=== PATIENT | female | born 1980 | race Caucasian/White ===

== ENCOUNTER 2018-08-21 21:46 | Emergency (ER) | payer MEDICARE, OTHER ==
[~2018-08-21] VITALS: Ht 170.2 cm; Wt 70.3 kg
--- OUTSIDE RECORDS SUMMARY | 2018-08-21 21:54 | XMS REPORT | Continuity of Care Document ---
Author Author [facility] Organization [facility] Address [address] [place] [address] ;ext= Care Team Providers Care Software Release Manager Name Role Phone ELFEGO LLANESAngelito Zuniga Admphys MARIO ALBERTO [facility] Admission Diagnosis Code Admission Diagnosis Date [id number] Migraine Social History Element Description Code Description Smoking Status Code System Start Date End Date Smoking Status 5887781 Former smoker SNOMED-CT Problems * No data in the system Medications SNOMED CT Description 124149326 Drug Treatment Unknown Allergies * No Allergy Data in the System Results * No data in the system Vital Signs * No data in the system Plan of Care * No data in the system Procedures * No data in the system Encounters Date Code Diagnosis Status (ICD10) - O11210 MIGRAINE UNS NOT INTRACT W/O SM Active Immunizations * No data in the system Functional Status * No data in the system Hospital Discharge Instructions * No data in the system
--- OUTSIDE RECORDS SUMMARY | 2018-08-21 21:54 | XMS REPORT | Continuity of Care Document ---
Author Author [facility] Organization [facility] Address [address] [place] [address] ;ext= Care Team Providers Care Ict Business Development Manager Name Role Phone Alma Rosa ADEN A-ED Admphys Alma Rosa ADEN A-ED Attphys Hospital Admission Diagnosis Code Admission Diagnosis Date [id number] Migraine without aura, not refractory Social History Element Description Code Description Smoking Status Code System Start Date End Date Smoking Status [id number] Never smoker SNOMED-CT Problems Code Code System Problem Name Start Date End Date Status 85390014 SNOMED-CT Headache 01/09/2017 Active 96073345 SNOMED-CT Migraine 01/07/2017 Active 88894422 SNOMED-CT Migraine 06/24/2016 Active Medications RxNorm Medication Dose Route Instructions Indications Start Date End Date Status 314907 24 HR venlafaxine 75 MG Extended Release Oral Capsule 75 milligram Oral orally every day Active 7337354 5 ML Lidocaine Hydrochloride 40 MG/ML Injection 0.5 milliliter Intranasal into the nostril(s) once (administer into one nostril;) Active 930614 Levothyroxine Sodium 0.2 MG Oral Tablet 200 microgram Oral orally every day Active 632660 MAGNESIUM GLUCONATE 550 MG Oral Tablet 250 milligram Oral orally 2 times per day Active stadol 1 spray Intranasal into the nostril(s) 1 spray in a nostril no relief 45 min repeat in other nostril Active Allergies Code Code System Allergy Substance Type Reaction Severity Start Date End Date Status 77086 RXNorm Sulfa (Sulfonamides) Drug allergy Unknown 06/24/2016 Active Results * No data in the system Vital Signs Vitals Value Date Body Temperature 98 F 01/07/2017 Respiratory Rate 18 01/07/2017 O2% BldC Oximetry 99 01/07/2017 BP Systolic 126 mmHg 01/07/2017 BP Diastolic 59 mmHg 01/07/2017 Height 68 in 01/07/2017 Weight Measured 158.73 lbs 01/07/2017 BSA (Body Surface Area) 1.8527 01/07/2017 BMI (Body Mass Index) 24.3 01/07/2017 Plan of Care * No data in the system Procedures Code Code System Procedure Name Target Site Date of Procedure 710480060 SNOMED 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 Unknown 20798246 SNOMED Laparoscopy Unknown Encounters Date Code Diagnosis Status (ICD10) - I58349 MIGRAINE W/O AURA NOT INTRCT W/O SE Active Immunizations * No data in the system Functional Status * No data in the system Hospital Discharge Instructions * No data in the system
--- OUTSIDE RECORDS SUMMARY | 2018-08-21 21:54 | XMS REPORT | Continuity of Care Document ---
Author Author [facility] Organization [facility] Address [address] [place] [address] ;ext= Care Team Providers Care Meter Tester Primary Name Role Phone LEIDA AKHTAR Admphys Unavailable LEIDA AKHTAR Attdebra Unavailable Hospital Admission Diagnosis * No data in the System Social History Element Description Code Description Smoking Status Code System Start Date End Date Smoking Status 030782195 Never smoker SNOMED-CT Problems Code Code System Problem Name Start Date End Date Status 90897123 SNOMED-CT Migraine 06/24/2016 Active Medications RxNorm Medication Dose Route Instructions Indications Start Date End Date Status 9327917 5 ML Lidocaine Hydrochloride 40 MG/ML Injection 0.5 milliliter Intranasal into the nostril(s) once (administer into one nostril;) Active 374183 Levothyroxine Sodium 0.2 MG Oral Tablet 200 microgram Oral orally every day Active 649127 MAGNESIUM GLUCONATE 550 MG Oral Tablet 250 milligram Oral orally 2 times per day Active stadol 1 spray Intranasal into the nostril(s) 1 spray in a nostril no relief 45 min repeat in other nostril Active Allergies Code Code System Allergy Substance Type Reaction Severity Start Date End Date Status 85535 RXNorm Sulfa (Sulfonamides) Drug allergy Unknown 06/24/2016 Active Results * No data in the system Vital Signs Vitals Value Date Body Temperature 97.2 F 06/24/2016 Respiratory Rate 18 06/24/2016 O2% BldC Oximetry 99 06/24/2016 BP Systolic 122 mmHg 06/24/2016 BP Diastolic 72 mmHg 06/24/2016 Height 67 in 06/24/2016 Weight Measured 151.56 lbs 06/24/2016 BSA (Body Surface Area) 1.00034 06/24/2016 BMI (Body Mass Index) 23.7 06/24/2016 Plan of Care * No data in the system Procedures * No data in the system Encounters * No data in the system Immunizations * No data in the system Functional Status * No data in the system Hospital Discharge Instructions * No data in the system
--- OUTSIDE RECORDS SUMMARY | 2018-08-21 21:54 | XMS REPORT | Continuity of Care Document ---
Author Author [facility] Organization [facility] Address [address] [place] [address] ;ext= Care Team Providers Care French Weaver Name Role Phone REDD GASTELUM Admdebra Unavailable REDD GASTELUM Attdebra Unavailable Hospital Admission Diagnosis * No data in the System Social History Element Description Code Description Smoking Status Code System Start Date End Date Smoking Status 454295871 Unknown if ever smoked SNOMED-CT Problems Code Code System Problem Name Start Date End Date Status 88059485 SNOMED-CT Headache 01/09/2017 Active 97763855 SNOMED-CT Migraine 01/07/2017 Active 00763227 SNOMED-CT Migraine 06/24/2016 Active Medications RxNorm Medication Dose Route Instructions Indications Start Date End Date Status 500054 24 HR venlafaxine 75 MG Extended Release Oral Capsule 75 milligram Oral orally every day Active 5781794 5 ML Lidocaine Hydrochloride 40 MG/ML Injection 0.5 milliliter Intranasal into the nostril(s) once (administer into one nostril;) Active 786966 Levothyroxine Sodium 0.2 MG Oral Tablet 200 microgram Oral orally every day Active 882039 MAGNESIUM GLUCONATE 550 MG Oral Tablet 250 milligram Oral orally 2 times per day Active stadol 1 spray Intranasal into the nostril(s) 1 spray in a nostril no relief 45 min repeat in other nostril Active Allergies Code Code System Allergy Substance Type Reaction Severity Start Date End Date Status 09483 RXNorm Sulfa (Sulfonamides) Drug allergy Unknown 06/24/2016 Active Results * No data in the system Vital Signs Vitals Value Date Body Temperature 98.9 F 01/09/2017 Respiratory Rate 16 01/09/2017 O2% BldC Oximetry 97 01/09/2017 BP Systolic 115 mmHg 01/09/2017 BP Diastolic 69 mmHg 01/09/2017 Height 67 in 01/09/2017 Weight Measured 154.98 lbs 01/09/2017 BSA (Body Surface Area) 1.42954 01/09/2017 BMI (Body Mass Index) 24.3 01/09/2017 Plan of Care * No data in the system Procedures * No data in the system Encounters * No data in the system Immunizations * No data in the system Functional Status * No data in the system Hospital Discharge Instructions * No data in the system
--- OUTSIDE RECORDS SUMMARY | 2018-08-21 21:54 | XMS REPORT | Continuity of Care Document ---
Author Author [facility] Organization [facility] Address [address] [place] [address] ;ext= Care Team Providers Care Software Qa Manager Name Role Phone CHRISTIANLEAHJC Admphys MARIO ALBERTOJC Attphys Hospital Admission Diagnosis * No data in the System Social History Element Description Code Description Smoking Status Code System Start Date End Date Smoking Status 0265281 Former smoker SNOMED-CT Problems * No data in the system Medications SNOMED CT Description 656865901 Drug Treatment Unknown Allergies * No Allergy [...]
--- OUTSIDE RECORDS SUMMARY | 2018-08-21 21:54 | XMS REPORT | Continuity of Care Document ---
Author Author [facility] Organization [facility] Address [address] [place] [address] ;ext= Care Team Providers Care Net Lead Architect Name Role Phone LEIDA AKHTAR Admphys LEIDA AKHTAR Attphys Hospital Admission Diagnosis Code Admission Diagnosis Date [id number] Migraine without aura, not refractory Social History Element Description Code Description Smoking Status Code System Start Date End Date Smoking Status 081900318 Never smoker SNOMED-CT Problems Code Code System Problem Name Start Date End Date Status 41842084 SNOMED-CT Migraine 06/24/2016 Active Medications RxNorm Medication Dose Route Instructions Indications Start Date End Date Status 5875354 5 ML Lidocaine Hydrochloride 40 MG/ML Injection 0.5 milliliter Intranasal into the nostril(s) once (administer into one nostril;) Active 586755 Levothyroxine Sodium 0.2 MG Oral Tablet 200 microgram Oral orally every day Active 564782 MAGNESIUM GLUCONATE 550 MG Oral Tablet 250 milligram Oral orally 2 times per day Active stadol 1 spray Intranasal into the nostril(s) 1 spray in a nostril no relief 45 min repeat in other nostril Active Allergies Code Code System Allergy Substance Type Reaction Severity Start Date End Date Status 56938 RXNorm Sulfa (Sulfonamides) Drug allergy Unknown 06/24/2016 Active Results * No data in the system Vital Signs Vitals Value Date Body Temperature 97.2 F 06/24/2016 Respiratory Rate 18 06/24/2016 O2% BldC Oximetry 99 06/24/2016 BP Systolic 122 mmHg 06/24/2016 BP Diastolic 72 mmHg 06/24/2016 Height 67 in 06/24/2016 Weight Measured 151.56 lbs 06/24/2016 BSA (Body Surface Area) 1.76751 06/24/2016 BMI (Body Mass Index) 23.7 06/24/2016 Plan of Care * No data in the system Procedures * No data in the system Encounters Date Code Diagnosis Status (ICD10) - M34205 MIGRAINE W/O AURA NOT INTRCT W/O SE Active Immunizations * No data in the system Functional Status * No data in the system Hospital Discharge Instructions * No data in the system
--- OUTSIDE RECORDS SUMMARY | 2018-08-21 21:54 | XMS REPORT | Continuity of Care Document ---
Author Author [facility] Organization [facility] Address [address] [place] [address] ;ext= Care Team Providers Care Appliquer Name Role Phone Alma Rosa ADEN A-ED Admphys Alma Rosa ADEN A-ED Attphys Hospital Admission Diagnosis * No data in the System Social History Element Description Code Description Smoking Status Code System Start Date End Date Smoking Status 326672085 Never smoker SNOMED-CT Problems Code Code System Problem Name Start Date End Date Status 16476894 SNOMED-CT Migraine 01/07/2017 Active 74699157 SNOMED-CT Migraine 06/24/2016 Active Medications RxNorm Medication Dose Route Instructions Indications Start Date End Date Status 083568 24 HR venlafaxine 75 MG Extended Release Oral Capsule 75 milligram Oral orally every day Active 0624251 5 ML Lidocaine Hydrochloride 40 MG/ML Injection 0.5 milliliter Intranasal into the nostril(s) once (administer into one nostril;) Active 548039 Levothyroxine Sodium 0.2 MG Oral Tablet 200 microgram Oral orally every day Active 138191 MAGNESIUM GLUCONATE 550 MG Oral Tablet 250 milligram Oral orally 2 times per day Active stadol 1 spray Intranasal into the nostril(s) 1 spray in a nostril no relief 45 min repeat in other nostril Active Allergies Code Code System Allergy Substance Type Reaction Severity Start Date End Date Status 53326 RXNorm Sulfa (Sulfonamides) Drug allergy Unknown 06/24/2016 [...] Procedure Name Target Site Date of Procedure 818083712 SNOMED 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 Unknown 89452821 SNOMED Laparoscopy Unknown Encounters * No data in the system Immunizations * No data in the system Functional Status * No data in the system Hospital Discharge Instructions * No data in the system
--- OUTSIDE RECORDS SUMMARY | 2018-08-21 21:54 | XMS REPORT | Continuity of Care Document ---
Author Author [email or web address] Organization [employer] [facility] Address [address] [place] [address] ;ext= Care Team Providers Care Performance Architect Name Role Phone ENW LUBINDAVID HOLTON Admphys Unavailable ROYCE LUBIN HOLTON Attphys Unavailable Hospital Admission Diagnosis * No data in the System Social History Element Description Code Description Smoking Status Code System Start Date End Date Smoking Status 881074521 Never smoker SNOMED-CT Problems Code Code System Problem Name Start Date End Date Status 09552663 SNOMED-CT Migraine 03/24/2018 Active 68696705 SNOMED-CT Headache 01/09/2017 Active 74811344 SNOMED-CT Migraine 01/07/2017 Active 12359422 SNOMED-CT Migraine 06/24/2016 Active Medications RxNorm Medication Dose Route Instructions Indications Start Date End Date Status 645703 24 HR venlafaxine 75 MG Extended Release Oral Capsule 75 milligram oral orally every day Active 3770802 5 ML Lidocaine Hydrochloride 40 MG/ML Injection 0.5 milliliter Intranasal intranasally once (administer into one nostril;) Active 257375 Levothyroxine Sodium 0.2 MG Oral Tablet 200 microgram oral orally every day Active 903747 MAGNESIUM GLUCONATE 550 MG Oral Tablet 250 milligram oral orally 2 times per day Active stadol 1 spray Intranasal intranasally 1 spray in a nostril no relief 45 min repeat in other nostril Active Allergies Code Code System Allergy Substance Type Reaction Severity Start Date End Date Status 935260 RXNorm Ceftin Drug allergy Unknown 03/24/2018 Active 208787 RXNorm Compazine Drug allergy Unknown 03/24/2018 Active 6574 RXNorm Magnesium Drug allergy Unknown 03/24/2018 Active 80644 RXNorm Sulfa (Sulfonamides) Drug allergy Unknown 06/24/2016 Active 050949 RXNorm Topamax Drug allergy Unknown 03/24/2018 Active Results * No data in the system Vital Signs Vitals Value Date Body Temperature 96.9 F 03/24/2018 Respiratory Rate 15 03/24/2018 O2% BldC Oximetry 100 03/24/2018 BP Systolic 128 mmHg 03/24/2018 BP Diastolic 64 mmHg 03/24/2018 Weight Measured 155 lbs 03/24/2018 Plan of Care * No data in the system Procedures * No data in the system Encounters * No data in the system Immunizations * No data in the system Functional Status * No data in the system Hospital Discharge Instructions * No data in the system
--- OUTSIDE RECORDS SUMMARY | 2018-08-21 21:55 | XMS REPORT | Continuity of Care Document ---
Author Author [facility] Organization [facility] Address Unknown Phone Unavailable Allergies Active Description Code Type Severity Reaction Onset Reported/Identified Relationship to Patient Clinical Status Yes Sulfa (Sulfonamides) 491 Unknown N/A 06/24/2016 Yes Ceftin 3716 Unknown N/A 03/24/2018 Yes Compazine 3622 Unknown N/A 03/24/2018 Yes Magnesium 784 Unknown N/A 03/24/2018 Yes Topamax 85060 Unknown N/A 03/24/2018 Medications There is no data. Problems Date Dx Coded Attending Type Code Diagnosis Diagnosed By 07/30/2015 JC LLANES P 346.90 MIGRAINE, UNSPECIFIED, WITHOUT MENTION OF INTRACTABLE MIGRAINE WITHOUT MENTION O 07/30/2015 JC LLANES P G43.909 MIGRAINE, UNSPECIFIED, NOT INTRACTABLE, WITHOUT STATUS MIGRAINOSUS 07/13/2016 LEIDA AKHTAR S E03.9 HYPOTHYROIDISM, UNSPECIFIED 07/13/2016 LEIDA AKHTAR P G43.009 MIGRAINE WITHOUT AURA, NOT INTRACTABLE, WITHOUT STATUS MIGRAINOSUS 01/26/2017 REDD GASTELUM P G43.909 MIGRAINE, UNSPECIFIED, NOT INTRACTABLE, WITHOUT STATUS MIGRAINOSUS 01/26/2017 Alma Rosa ADEN P G43.009 MIGRAINE WITHOUT AURA, NOT INTRACTABLE, WITHOUT STATUS MIGRAINOSUS 07/18/2018 [facility] G[facility].809 OTHER MIGRAINE, NOT INTRACTABLE, WITHOUT STATUS MIGRAINOSUS 07/18/2018 [facility] Procedures There is no data. Results There is no data. Encounters ACCT No. Visit Date/Time Discharge Status Pt. Type Provider Facility Loc./Unit Complaint [id number] 06/23/2018 04:07:00 ACT Unknown [facility] NSER HEADACHE [id number] 06/22/2018 22:07:00 ACT Unknown [facility] HEADACHE [id number] 03/24/2018 19:16:00 [facility] [id number] 01/09/2017 18:47:00 ACT Unknown REDD GASTELUM [facility] NSER HEADACHE [id number] 01/07/2017 21:26:00 ACT Unknown Alma Rosa ADEN [facility] NSER HEADACHE [id number] 06/24/2016 20:12:00 ACT Unknown LEIDA AKHTAR [facility] NSER HEADACHE [id number] 06/26/2015 20:27:00 ACT Unknown JC LLANES [id number] 08/17/2018 18:10:00 08/17/2018 23:59:59 [facility] Outpatient WENCESLAO PARIS [facility] [id number] 07/01/2016 14:22:44 ACT Document Registration
--- OUTSIDE RECORDS SUMMARY | 2018-08-21 21:55 | XMS REPORT | Continuity of Care Document ---
Author Author [facility] Organization [facility] Address [address] [place] [address] ;ext= Care Team Providers Care Supervisor Paper Testing Name Role Phone REDD GASTELUM Admdebra Unavailable REDD GASTELUM Attdebra Unavailable Hospital Admission Diagnosis Code Admission Diagnosis Date 03636857 Migraine Social History Element Description Code Description Smoking Status Code System Start Date End Date Smoking Status 610041594 Unknown if ever smoked SNOMED-CT Problems Code Code System Problem Name Start Date End Date Status 67350327 SNOMED-CT Headache 01/09/2017 Active 43860906 SNOMED-CT Migraine 01/07/2017 Active 87843495 SNOMED-CT Migraine 06/24/2016 Active Medications RxNorm Medication Dose Route Instructions Indications Start Date End Date Status 967030 24 HR venlafaxine 75 MG Extended Release Oral Capsule 75 milligram Oral orally every day Active 1993381 5 ML Lidocaine Hydrochloride 40 MG/ML Injection 0.5 milliliter Intranasal into the nostril(s) once (administer into one nostril;) Active 375118 Levothyroxine Sodium 0.2 MG Oral Tablet 200 microgram Oral orally every day Active 379643 MAGNESIUM GLUCONATE 550 MG Oral Tablet 250 milligram Oral orally 2 times per day Active stadol 1 spray Intranasal into the nostril(s) 1 spray in a nostril no relief 45 min repeat in other nostril Active Allergies Code Code System Allergy Substance Type Reaction Severity Start Date End Date Status 36247 RXNorm Sulfa (Sulfonamides) Drug allergy Unknown 06/24/2016 Active Results * No data in the system Vital Signs Vitals Value Date Body Temperature 98.9 F 01/09/2017 Respiratory Rate 16 01/09/2017 O2% BldC Oximetry 97 01/09/2017 BP Systolic 115 mmHg 01/09/2017 BP Diastolic 69 mmHg 01/09/2017 Height 67 in 01/09/2017 Weight Measured 154.98 lbs 01/09/2017 BSA (Body Surface Area) 1.91373 01/09/2017 BMI (Body Mass Index) 24.3 01/09/2017 Plan of Care * No data in the system Procedures * No data in the system Encounters Date Code Diagnosis Status (ICD10) - O77108 MIGRAINE UNS NOT INTRACT W/O SM Active Immunizations * No data in the system Functional Status * No data in the system Hospital Discharge Instructions * No data in the system
--- NOTE | 2018-08-21 21:56 | ED Headache ---
General Stated Complaint: MIGRAINE, NAUSEA, SENSITIVE TO LIGHT AND SMELLS History of Present Illness Date Seen by Provider: Aug 21, 2018 Time Seen by Provider: 21:54 Timing/Duration: episodic Severity/Quality: moderate, throbbing Location: frontal Prior Headaches/Recent Trauma: frequent headaches Modifying Factors: improves with exposure to light Associated Symptoms: No fever/chills; nausea/vomiting; No numbness in legs/feet , No stiff neck, No vision changes, No weakness 37-year-old female with a history of migraine headaches is here for her typical migraine symptoms. She just was getting a massage but this did not help her. She started to have nausea and vomiting which is not new for her but she decided she should come to the emergency department for treatment. She usually gets a combination of IV medications which she states include Toradol, Phenergan , and sometimes a steroid. No visual or neurologic changes. No fever or neck symptoms. Allergies and Home Medications Allergies Coded Allergies: cefuroxime (Verified Allergy, Unknown, 08/21/18) magnesium (Verified Allergy, Unknown, 08/21/18) prochlorperazine (Verified Allergy, Unknown, rash, 08/21/18) topiramate (Verified Allergy, Unknown, 08/21/18) Uncoded Allergies: SULFA (Allergy, Mild, itchy, 08/21/18) Patient Home Medication List Home Medication List Reviewed: Yes Review of Systems Review of Systems Constitutional: no symptoms reported Eyes: No Symptoms Reported Ears, Nose, Mouth, Throat: no symptoms reported Respiratory: no symptoms reported Cardiovascular: no symptoms reported Gastrointestinal: no symptoms reported Genitourinary: no symptoms reported Musculoskeletal: no symptoms reported Skin: no symptoms reported Psychiatric/Neurological: Headache Past Cvzabhf-Takgnq-Hmdsxo Hx Patient Social History Recent Foreign Travel: No Contact w/Someone Who Travel: No Physical Exam Vital Signs Vital Signs - First Documented 08/21/18 22:52 Temp 100.1 Pulse 95 Resp 18 B/P (MAP) 113/60 (77) Pulse Ox 100 O2 Delivery Room Air Capillary Refill : Height, Weight, BMI Height: '" Weight: lbs. oz. kg; BMI Method: General Appearance: no apparent distress HEENT: normal ENT inspection Neck: full range of motion, supple Cardiovascular: normal peripheral pulses, regular rate, rhythm Respiratory: lungs clear Gastrointestinal: non tender, soft Psychiatric: alert, oriented x 3 Crainal Nerves: normal hearing, normal speech, PERRL; No abnormal speech, No facial asymmetry, No tongue deviation to R, No tongue deviation to L Coordination/Gait: normal finger to nose, normal gait Motor/Sensory: no motor deficit, no sensory deficit Skin: warm/dry Progress/Results/Core Measures Results/Orders My Orders Orders - JOEL ELLIOTT DO Metoclopramide Injection (Reglan Injecti (08/21/18 22:09) Ns Iv 1000 Ml (Sodium Chloride 0.9%) (08/21/18 22:09) Diphenhydramine Injection (Benadryl Inje (08/21/18 22:09) Diphenhydramine Injection (Benadryl Inje (08/21/18 22:09) Hcg,Qualitative Urine (08/21/18 22:09) Promethazine Injection (Phenergan Injec (08/21/18 23:09) Morphine Injection (Morphine Injection (08/22/18 00:21) Morphine Injection (Morphine Injection (08/22/18 00:28) Vital Signs/I&O 08/21/18 22:52 Temp 100.1 Pulse 95 Resp 18 B/P (MAP) 113/60 (77) Pulse Ox 100 O2 Delivery Room Air Progress Progress Note : Progress Note This is a 37-year-old female with a history of migraines who complains of her typical migraine symptoms. She has no systemic symptoms other than vomiting which is not new for her. She is neurologically intact. We will treat with a migraine cocktail and will continue to monitor. Departure Impression Primary Impression: Headache Disposition: 01 HOME, SELF-CARE Condition: Stable Departure-Patient Inst. Referrals: WENCESLAO PARIS MD (PCP) Primary Care Physician Patient Instructions: Headache, Adult (DC) JOEL ELLIOTT DO Aug 21, 2018 21:56
[2018-08-21] MEDS ORDERED: diphenhydrAMINE 50 MG/ML INJ (BENADRYL) IVP STA (22:09)
[2018-08-21] MEDS ORDERED: diphenhydrAMINE 50 MG/ML INJ (BENADRYL) IV STA (22:09)
[2018-08-21] MEDS ORDERED: METOCLOPRAMIDE INJ 10 MG/2 ML (REGLAN) IVP STA (22:09)
[2018-08-21] MEDS ORDERED: NS IV 1000 ML 1,000 ML IV STA (22:09)
[2018-08-21] MEDS ORDERED: PROMETHAZINE INJ 25 MG/ML (PHENERGAN) AMP IM STA (23:09)
[2018-08-22] MEDS ORDERED: morphine INJ 10 MG/ML 1ML (SYR OR VIAL) IVP STA (00:21)
[2018-08-22] MEDS ORDERED: morphine INJ 10 MG/ML 1ML (SYR OR VIAL) IM STA (00:28)
[2018-08-22 00:38] VITALS: BP 112/73
[2018-08-22 00:46] VITALS: BP 113/60
[2018-08-22] MEDS ORDERED: LORA1TAB (10:24)
[2018-08-22] MEDS ORDERED: BUPR150T14 (10:24)
[2018-08-22] MEDS ORDERED: ZOLP5TAB7 (10:24)
[2018-08-22] MEDS ORDERED: PROP20TA5 (10:24)
[2018-08-22] MEDS ORDERED: VENL150C98 (10:24)
[2018-08-22] MEDS ORDERED: LEVO200T (10:24)
[2018-08-22] MEDS ORDERED: BTR10SP2 (10:24)
[2018-08-22] MEDS ORDERED: LEVO50TA (10:24)
== END 2018-08-22 00:46 | disposition home or self-care (01) ==
LOC: ER FS 21:49
DX: R51 Headache (principal); Z88.8 Allergy status to other drugs, medicaments and biological substances; Z88.2 Allergy status to sulfonamides
CPT/HCPCS: 99284

== ENCOUNTER 2018-08-22 09:52 | Emergency (ER) | payer MEDICARE, OTHER ==
[~2018-08-22] VITALS: Ht 170.2 cm; Wt 70.3 kg
[2018-08-22] MEDS ORDERED: KETOROLAC 30 MG/ML VIAL IVP STA (10:20)
[2018-08-22] MEDS ORDERED: NS IV 1000 ML 1,000 ML IV SCH (10:20)
[2018-08-22] MEDS ORDERED: LEVO50TA (10:24)
[2018-08-22] MEDS ORDERED: LORA1TAB (10:24)
[2018-08-22] MEDS ORDERED: VENL150C98 (10:24)
[2018-08-22] MEDS ORDERED: BTR10SP2 (10:24)
[2018-08-22] MEDS ORDERED: PROP20TA5 (10:24)
[2018-08-22] MEDS ORDERED: LEVO200T (10:24)
[2018-08-22] MEDS ORDERED: BUPR150T14 (10:24)
[2018-08-22] MEDS ORDERED: ZOLP5TAB7 (10:24)
--- NOTE | 2018-08-22 10:28 | ED Headache ---
General Chief Complaint: Head/Cervical Problems Stated Complaint: HEADACHE Nursing Triage Note: PT LAYING ON OWN BLANKET IN WAITING ROOM. STATE SHE WAS SEEN LAST NIGHT HERE FOR HER MIGRAINE AND DID NOT REALLY GO AWAY. Nursing Sepsis Screen: No Definite Risk History of Present Illness Date Seen by Provider: Aug 22, 2018 Time Seen by Provider: 10:18 Initial Comments 37-year-old female with long history of migraine headaches presents with continuation of headache that she was seen last night here. They were unable to establish an IV and medications given to her was limited. She continues to have photophobia and generalized headache, worse on the left. She states this is typical for her migraine headaches and is not different from what she would expect. No known precipitating event. Sees neurology. She states that Norflex has helped her substantially in the past and requested it today if possible. She has not had a good by mouth fluid intake. She reports associated nausea. No recent head injury or other associated factors. Allergies and Home Medications Allergies Coded Allergies: cefuroxime (Verified Allergy, Unknown, 08/21/18) magnesium (Verified Allergy, Unknown, 08/21/18) prochlorperazine (Verified Allergy, Unknown, rash, 08/21/18) topiramate (Verified Allergy, Unknown, 08/21/18) Uncoded Allergies: SULFA (Allergy, Mild, itchy, 08/21/18) Patient Home Medication List Home Medication List Reviewed: Yes Review of Systems Review of Systems Constitutional: see HPI, weakness Eyes: See HPI, Photophobia Ears, Nose, Mouth, Throat: no symptoms reported Respiratory: no symptoms reported Cardiovascular: no symptoms reported Gastrointestinal: see HPI, nausea Genitourinary: no symptoms reported : No Musculoskeletal: no symptoms reported Skin: no symptoms reported Psychiatric/Neurological: Anxiety, Other (ADD, OCD) Past Tqqgdko-Cgrwpn-Hgyjpt Hx Past Med/Social Hx: Reviewed Nursing Past Med/Soc Hx Patient Social History Alcohol Use: Denies Use Recreational Drug Use: No Smoking Status: Former Smoker 2nd Hand Smoke Exposure: No Recent Foreign Travel: No Contact w/Someone Who Travel: No Recent Infectious Disease Expo: No Recent Hopitalizations: No Past Medical History Respiratory: No Cardiac: No Neurological: Yes 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 oz. 70.905579ez; BMI Method:Stated General Appearance: WD/WN, mild distress HEENT: PERRL/EOMI, normal ENT inspection, TMs normal, pharynx normal; No scleral icterus (R) Neck: non-tender, full range of motion, supple, normal inspection Cardiovascular: normal peripheral pulses, regular rate, rhythm, no edema, no gallop, no JVD, no murmur Respiratory: chest non-tender, lungs clear, normal breath sounds, no respiratory distress, no accessory muscle use Gastrointestinal: normal bowel sounds, non tender, soft, no organomegaly, no pulsatile mass Back: normal inspection, no CVA tenderness, no vertebral tenderness Extremities: normal range of motion, non-tender, normal inspection, no pedal edema, no calf tenderness, normal capillary refill, pelvis stable Psychiatric: alert, oriented x 3 Crainal Nerves: normal hearing, normal speech, PERRL; No facial asymmetry, No facial droop Coordination/Gait: normal finger to nose, normal gait Motor/Sensory: no motor deficit, no sensory deficit, no pronator drift Reflexes: 1+ Bicep (R), 1+ Bicep (L) Skin: normal color, warm/dry Lymphatic: no adenopathy Progress/Results/Core Measures Results/Orders My Orders Orders - SABINA DOUGHERTY MD Ketorolac Injection (Toradol Injection) (08/22/18 10:20) Saline Lock/Iv-Start (08/22/18 10:20) Ns Iv 1000 Ml (Sodium Chloride 0.9%) (08/22/18 10:20) Dexamethasone Injection (Decadron Inject (08/22/18 10:30) Lorazepam Injection (Ativan Injection) (08/22/18 11:00) Medications Given in ED Current Medications Medications Dose Ordered Sig/Shell Route Start Time Stop Time Status Last Admin Dose Admin Dexamethasone Sodium Phosphate 4 mg ONCE ONCE IV 08/22/18 10:30 08/22/18 10:31 DC 08/22/18 10:36 4 MG Lorazepam 1 mg ONCE ONCE IVP 08/22/18 11:00 08/22/18 11:01 DC 08/22/18 10:53 1 MG Vital Signs/I&O 08/22/18 09:55 Temp 100.4 Pulse 79 Resp 16 B/P (MAP) 144/79 (100) Pulse Ox 100 O2 Delivery Room Air Blood Pressure Mean: 100 Progress Progress Note : Time: 10:28 Progress Note We'll attempt IV fluids and medication. Due to recent evaluations and no change in course, will not perform diagnostic testing. Discussed treatment plan with patient and mother understand and agree with plan. 1034 Norflex is not available due to the stone [employer]ney m[employer]'s backorder. Patient and mother both state that she can take Phenergan but prefers not to have it today. We will give Ativan instead of Norflex. Continue with plan for Toradol, IV fluids and Decadron. 1142 Feeling better. IVF continue to infuse. She feels like she will be able to go home soon. Departure Impression Primary Impression: Migraine Qualified Codes: G43.119 - Migraine with aura, intractable, without status migrainosus Additional Impression: Dehydration Disposition: 01 HOME, SELF-CARE Condition: Improved Departure-Patient Inst. Referrals: WENCESLAO PARIS MD (PCP/Family) Primary Care Physician SABINA DOUGHERTY MD Aug 22, 2018 10:28
[2018-08-22] MEDS ORDERED: DEXAMETHASONE 4 MG/ML SDV (DECADRON) IV ONE (10:30)
[2018-08-22] MEDS ORDERED: ORPHENADRINE 60 MG/2 ML (NORFLEX) AMP IV ONE (10:30)
--- NOTE | 2018-08-22 10:35 | NUR ---
PT CRYING ET STATES THEY HAVE TROUBLE GETTING HER IV STARTED. AFTER IV STARTED PT CRYING THAT SHE WILL FEEL ALL THE MEDS THAT ARE GIVEN IV. PT REQUEST ATIVAN. NOTIFIED.
[2018-08-22] MEDS ORDERED: PROMETHAZINE INJ 25 MG/ML (PHENERGAN) AMP IVP ONE (10:45)
--- NOTE | 2018-08-22 10:45 | NUR ---
DR REPORTS PT REFUSES PHENERGAN IV DUE TO SHE WILL FEEL IT. ATIVAN TO BE ORDERED FOR PT.
[2018-08-22] MEDS ORDERED: LORazepam INJ 2 MG/ML (ATIVAN) VIAL IVP ONE (11:00)
--- NOTE | 2018-08-22 11:19 | NUR ---
MOM LEAVING BEDSIDE. CALL LIGHT GIVEN. ANXIETY HAS DECREASED BUT NOT COMPLETELY GONE. A/O X3 AT THIS TIME.
--- NOTE | 2018-08-22 11:40 | NUR ---
RESTING IN BED. STATES HER IS ON HIS WAY AND WOULD NEED TO LEAVE WHEN HE ARRIVES. DR ARTHUR.
--- NOTE | 2018-08-22 11:57 | NUR ---
PT UP TO BATHROOM AT THIS TIME.
[2018-08-22 12:18] VITALS: BP 121/71
== END 2018-08-22 12:18 | disposition home or self-care (01) ==
LOC: EDUNIT# 09:52 → ER FS 09:55
DX: G43.909 Migraine, unspecified, not intractable, without status migrainosus (principal); F41.9 Anxiety disorder, unspecified; E86.0 Dehydration; Z88.2 Allergy status to sulfonamides; Z88.8 Allergy status to other drugs, medicaments and biological substances; Z87.891 Personal history of nicotine dependence; Z90.710 Acquired absence of both cervix and uterus

== ENCOUNTER → 2018-10-24 | Outpatient (CLI) | payer MEDICARE, OTHER ==
[~2018-10-24] MED LIST: BTR10SP2; BUPR150T14; LEVO200T; LEVO50TA; LORA1TAB; PROP20TA5; VENL150C98; ZOLP5TAB7
--- NOTE | 2018-10-24 15:55 | Diagnostic Imaging Report ---
INDICATION: Acute back pain. COMPARISON: None FINDINGS: Frontal and lateral views of the lumbar spine were obtained. Alignment and vertebral heights are maintained. There is no fracture or destructive process. Limited views of the abdomen demonstrate nonobstructive bowel gas pattern. IMPRESSION: 1. No acute fracture or dislocation of the lumbar spine. Dictated by: Dictated on workstation # [id number]
== END ==
LOC: RAD FS 15:25
PROVIDERS: ATTEND Family Medicine
DX: M54.41 Lumbago with sciatica, right side (principal)
CPT/HCPCS: 72100

== ENCOUNTER 2018-10-31 16:56 | Emergency (ER) | payer MEDICARE, OTHER ==
[~2018-10-31] VITALS: Ht 170.2 cm; Wt 70.3 kg
--- OUTSIDE RECORDS SUMMARY | 2018-10-31 17:01 | XMS REPORT | Continuity of Care Document ---
Author Organization Unknown Address Unknown Allergies Active Description Code Type Severity Reaction Onset Reported/Identified Relationship to Patient Clinical Status Yes Sulfa (Sulfonamides) 491 Unknown N/A 06/24/2016 Yes Ceftin 3716 Unknown N/A 03/24/2018 Yes Compazine 3622 Unknown N/A 03/24/2018 Yes Magnesium 784 Unknown N/A 03/24/2018 Yes Topamax 02119 Unknown N/A 03/24/2018 Medications There is no [...] NOT INTRACTABLE, WITHOUT STATUS [facility]RAIN[facility] G[facility].809 OTHER MIGRAINE, NOT INTRACTABLE, WITHOUT STATUS MIGRAINOSUS 07/18/2018 [facility] R51 HEADACHE 09/09/2018 TRUNG WIGGINS P G43.909 MIGRAINE, UNSPECIFIED, NOT INTRACTABLE, WITHOUT STATUS MIGRAINOSUS 09/09/2018 TRUNG WIGGINS P G43.909 MIGRAINE, UNSPECIFIED, NOT INTRACTABLE, WITHOUT STATUS MIGRAINOSUS 09/09/2018 TRUNG WIGGINS S R11.2 NAUSEA WITH VOMITING, UNSPECIFIED Procedures There is no data. Results Test Result Range CULTURE, THROAT - 10/12/18 16:56 CULTURE, THROAT SEE NOTE NRG Encounters ACCT No. Visit Date/Time Discharge Status Pt. Type Provider Facility Loc./Unit Complaint [id number] 10/17/2018 18:00:00 10/17/2018 23:59:59 CLS Outpatient WENCESLAO PARIS [facility] [id number] 10/12/2018 16:20:00 Document Registration [id number] 06/23/2018 04:07:00 ACT Unknown [facility] NSER HEADACHE [id number] 06/22/2018 22:07:00 ACT Unknown [facility] NSER HEADACHE [id number] 03/24/2018 19:16:00 [facility] [id number] 01/09/2017 18:47:00 ACT Unknown REDD GASTELUM [facility] NSER HEADACHE [id number] 01/07/2017 21:26:00 ACT Unknown Alma Rosa ADEN [facility] NSER HEADACHE [id number] 06/24/2016 20:12:00 ACT Unknown LEIDA AKHTAR [facility] NSER HEADACHE [id number] 06/26/2015 20:27:00 ACT Unknown JC LLANES
[2018-10-31] MEDS ORDERED: CLIN300C11 (17:16)
[2018-10-31] MEDS ORDERED: CYCLOBENZAPRINE 10 MG (FLEXERIL) TAB PO STA (17:40)
[2018-10-31] MEDS ORDERED: PROMETHAZINE INJ 25 MG/ML (PHENERGAN) AMP IM ONE (17:45)
[2018-10-31] MEDS ORDERED: KETOROLAC 60 MG/2 ML VIAL IM ONE (17:45)
[2018-10-31] MEDS ORDERED: ACETAMINOPHEN 500 MG TAB (TYLENOL) PO ONE (17:45)
[2018-10-31] MEDS ORDERED: diphenhydrAMINE 50 MG/ML INJ (BENADRYL) IM ONE (17:45)
[2018-10-31] MEDS ORDERED: methylPREDNISolone 40 MG/ML (DEPO MEDROL) VIAL IM ONE (17:45)
--- NOTE | 2018-10-31 17:48 | ED Headache ---
General Chief Complaint: Head/Cervical Problems Stated Complaint: HEADACHE Nursing Triage Note: migraine started on sunday and was seen at urgent care but has not helped with the pain. Nursing Sepsis Screen: No Definite Risk Source: patient, spouse Exam Limitations: no limitations History of Present Illness Date Seen by Provider: October 31, 2018 Time Seen by Provider: 17:33 Initial Comments Patient presents to ER by private conveyance with headache, chronic migraine. This has been going on for several days. 2 weeks ago she was treated was antibiotics and steroids for sinus infection and has gotten over that. She's having no fevers chills cough dysuria. She does have some nausea with dry heaving. She uses Zofran at home. She has Phenergan at home as well. 2 days ago she had a shot of Toradol and some Phenergan and Tylenol at urgent care but no steroids. She has chronic migraines usually gets Botox shots but she's fallen off that track and so her migraines of gotten worse in the last couple months. She's having an aura yesterday when the migraine symptoms began. She does not use Compazine because she made her itch out of her skin. She has significant anxiety for which she uses Ativan as necessary. Allergies and Home Medications Allergies Coded Allergies: cefuroxime (Verified Allergy, Unknown, 08/21/18) haloperidol (Verified Allergy, Unknown, 10/31/18) magnesium (Verified Allergy, Unknown, 08/21/18) prochlorperazine (Verified Allergy, Unknown, rash, 08/21/18) topiramate (Verified Allergy, Unknown, 08/21/18) tramadol (Verified Allergy, Unknown, 10/31/18) Uncoded Allergies: SULFA (Allergy, Mild, itchy, 08/21/18) DHE (Allergy, Unknown, 10/31/18) Patient Home Medication List Home Medication List Reviewed: Yes Review of Systems Review of Systems Constitutional: No chills, No diaphoresis Eyes: Denies Blindness, Denies Blurred Vision Ears, Nose, Mouth, Throat: denies ear pain, denies ear discharge Respiratory: No cough, No short of breath Cardiovascular: No chest pain, No edema Gastrointestinal: nausea, vomiting Past Tpsgyhl-Qcfgdl-Uxmigo Hx Patient Social History Alcohol Use: Denies Use Recreational Drug Use: No Smoking Status: Never a Smoker 2nd Hand Smoke Exposure: No Recent Foreign Travel: No Contact w/Someone Who Travel: No Recent Infectious Disease Expo: No Recent Hopitalizations: No Physical Abuse: No Sexual Abuse: No Mistreated: No Fear: No Past Medical History Respiratory: No Cardiac: No 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 oz. 70.871544ui; BMI Method:Stated General Appearance: WD/WN, mild distress, other (anxious) HEENT: PERRL/EOMI, normal ENT inspection, TMs normal, pharynx normal Neck: non-tender, full range of motion, supple, normal inspection Cardiovascular: normal peripheral pulses, regular rate, rhythm, no edema Respiratory: lungs clear, normal breath sounds, no respiratory distress, no accessory muscle use Extremities: non-tender, normal inspection, normal capillary refill Psychiatric: alert, oriented x 3 Crainal Nerves: normal hearing, normal speech, PERRL Coordination/Gait: normal gait Motor/Sensory: no motor deficit, no sensory deficit Skin: normal color, warm/dry Progress/Results/Core Measures Results/Orders My Orders Orders - JAXSON ANDERSON Diphenhydramine Injection (Benadryl Inje (10/31/18 17:45) Acetaminophen Tablet (Tylenol Tablet) (10/31/18 17:45) Ketorolac Injection (Toradol Injection) (10/31/18 17:45) Promethazine Injection (Phenergan Injec (10/31/18 17:45) Methylprednisolone Acetate Inj (Depo-Med (10/31/18 17:45) Cyclobenzaprine Tablet (Flexeril Tablet) (10/31/18 17:40) Medications Given in ED Current Medications Medications Dose Ordered Sig/Shell Route Start Time Stop Time Status Last Admin Dose Admin Acetaminophen 1,000 mg ONCE ONCE PO 10/31/18 17:45 10/31/18 17:46 DC 10/31/18 17:56 1,000 MG Diphenhydramine HCl 25 mg ONCE ONCE IM 10/31/18 17:45 10/31/18 17:46 DC 10/31/18 17:57 25 MG Ketorolac Tromethamine 60 mg ONCE ONCE IM 10/31/18 17:45 10/31/18 17:46 DC 10/31/18 17:59 60 MG Methylprednisolone Acetate 40 mg ONCE ONCE IM 10/31/18 17:45 10/31/18 17:46 DC 10/31/18 17:58 40 MG Promethazine HCl 25 mg ONCE ONCE IM 10/31/18 17:45 10/31/18 17:46 DC 10/31/18 17:58 25 MG Vital Signs/I&O 10/31/18 17:16 Temp 99.0 Pulse 94 Resp 18 B/P (MAP) 137/67 (90) Pulse Ox 100 Blood Pressure Mean: 90 Progress Progress Note : Time: 18:08 Progress Note Per patient's request we'll give IM Toradol, Depo-Medrol, Benadryl, and Phenergan. She is declining Zofran at this time. We'll give her some Tylenol by mouth. We have discussed using Reglan but she has quite a bit of anxiety about this because of her side effects to Compazine so we will hold off doing that for now. We'll give her a prescription for some cyclobenzaprine. Departure Impression Primary Impression: Migraine Qualified Codes: G43.119 - Migraine with aura, intractable, without status migrainosus Disposition: 01 HOME, SELF-CARE Condition: Stable Departure-Patient Inst. Decision time for Depature: 18:09 Referrals: WENCESLAO PARIS MD (PCP/Family) Primary Care Physician Patient Instructions: Migraine Headache (DC) Add. Discharge Instructions: Use the cyclobenzaprine 1 tablet every 8 hours as necessary for spasms in the muscles of your neck back or shoulders. Continue to use Tylenol 1000 mg and ibuprofen 800 mg every 8 hours. Please weight 8 hours after the Toradol shot before using anymore ibuprofen or Naprosyn or Aleve. Follow-up with your headache specialist to discuss prevention strategies. Get some sleep and drink plenty of fluids. All discharge instructions reviewed with patient and/or family. Voiced understanding. Scripts Cyclobenzaprine HCl (Cyclobenzaprine HCl) 10 Mg Tablet 10 MG PO Q8H PRN for SPASMS, #15 TAB 0 Refills Prov: JAXSON ANDERSON 10/31/18 JAXSON ANDERSON October 31, 2018 17:48
[2018-10-31] MEDS ORDERED: CYCL10TA9 PO (18:10)
[2018-10-31 18:30] VITALS: BP 130/67
== END 2018-10-31 18:30 | disposition home or self-care (01) ==
LOC: EDUNIT# 16:56 → ER FS 16:57
DX: G43.909 Migraine, unspecified, not intractable, without status migrainosus (principal); F41.9 Anxiety disorder, unspecified; Z90.710 Acquired absence of both cervix and uterus; Z88.8 Allergy status to other drugs, medicaments and biological substances; Z88.2 Allergy status to sulfonamides; Z88.6 Allergy status to analgesic agent
CPT/HCPCS: 96372; 99284

== ENCOUNTER 2018-12-20 15:34 | Emergency (ER) | payer MEDICARE, OTHER ==
[~2018-12-20] VITALS: Ht 170.2 cm; Wt 70.3 kg
[~2018-12-20 15:34] MED LIST changes: +CLIN300C11; +CYCL10TA9 PO
--- OUTSIDE RECORDS SUMMARY | 2018-12-20 15:42 | XMS REPORT | Continuity of Care Document ---
Author Organization Unknown Address Unknown Allergies Active Description Code Type Severity Reaction Onset Reported/Identified Relationship to Patient Clinical Status Yes Sulfa (Sulfonamides) 491 Unknown N/A 06/24/2016 Yes Ceftin 3716 Unknown N/A 03/24/2018 Yes Compazine 3622 Unknown N/A 03/24/2018 Yes Magnesium 784 Unknown N/A 03/24/2018 Yes Topamax 17691 Unknown N/A 03/24/2018 Yes SULFA SULFA Mild itchy 08/21/2018 Yes cefuroxime [id number] Drug Allergy Unknown N/A 08/21/2018 Yes magnesium [id number] Drug Allergy Unknown N/A 08/21/2018 Yes No Known Drug Allergies [id number] Drug Allergy Unknown N/A 08/21/2018 Yes prochlorperazine [id number] Drug Allergy Unknown rash 08/21/2018 Yes topiramate [id number] Drug Allergy Unknown N/A 08/21/2018 Yes DHE DHE Unknown N/A 10/31/2018 Yes haloperidol [id number] Drug Allergy Unknown N/A 10/31/2018 Yes tramadol [id number] Drug Allergy Unknown N/A 10/31/2018 Medications There is no data. Problems Date [...] UNSPECIFIED, NOT INTRACTABLE, WITHOUT STATUS MIGRAINOSUS 01/26/2017 [facility], [facility] P G43.009 MIGRAINE WITHOUT AURA, NOT INTRACTABLE, WITHOUT STATUS MIGRAINOSUS 07/18/2018 [facility] P G43.809 OTHER MIGRAINE, NOT INTRACTABLE, WITHOUT STATUS MIGRAINOSUS 07/18/2018 [facility] A R51 HEADACHE 08/22/2018 EARL ARAGON JOEL T Ot R11.2 NAUSEA WITH VOMITING, UNSPECIFIED 08/22/2018 EARL ARAGON JOEL T Ot R51 HEADACHE 08/22/2018 EARL ARAGON JOEL T Ot Z88.2 ALLERGY STATUS TO SULFONAMIDES STATUS 08/22/2018 EARL ARAGON JOEL T Ot Z88.8 ALLERGY STATUS TO OTH DRUG/MEDS/BIOL SUB 08/22/2018 SABINA DOUGHERTY MD Ot E86.0 DEHYDRATION 08/22/2018 SABINA DOUGHERTY MD Ot F41.9 ANXIETY DISORDER, UNSPECIFIED 08/22/2018 SABINA DOUGHERTY MD Ot G43.909 MIGRAINE, UNSP, NOT INTRACTABLE, WITHOUT 08/22/2018 SABINA DOUGHERTY MD Ot Z87.891 PERSONAL HISTORY OF NICOTINE DEPENDENCE 08/22/2018 SABINA DOUGHERTY MD Ot Z88.2 ALLERGY STATUS TO SULFONAMIDES STATUS 08/22/2018 SABINA DOUGHERTY MD Ot Z88.8 ALLERGY STATUS TO OTH DRUG/MEDS/BIOL SUB 08/22/2018 SABINA DOUGHERTY MD Ot Z90.710 ACQUIRED ABSENCE OF BOTH CERVIX AND UTER 08/23/2018 EARL ARAGON JOEL T Ot R11.2 NAUSEA WITH VOMITING, UNSPECIFIED 08/23/2018 EARL ARAGON JOEL T Ot R51 HEADACHE 08/23/2018 EARL ARAGON JOEL T Ot Z88.2 ALLERGY STATUS TO SULFONAMIDES STATUS 08/23/2018 EARL ARAGON JOEL T Ot Z88.8 ALLERGY STATUS TO OTH DRUG/MEDS/BIOL SUB 08/23/2018 SABINA DOUGHERTY MD Ot E86.0 DEHYDRATION 08/23/2018 SABINA DOUGHERTY MD Ot F41.9 ANXIETY DISORDER, UNSPECIFIED 08/23/2018 SABINA DOUGHERTY MD Ot G43.909 MIGRAINE, UNSP, NOT INTRACTABLE, WITHOUT 08/23/2018 SABINA DOUGHERTY MD Ot Z87.891 PERSONAL HISTORY OF NICOTINE DEPENDENCE 08/23/2018 SABINA DOUGHERTY MD Ot Z88.2 ALLERGY STATUS TO SULFONAMIDES STATUS 08/23/2018 SABINA DOUGHERTY MD Ot Z88.8 ALLERGY STATUS TO OTH DRUG/MEDS/BIOL SUB 08/23/2018 SABINA DOUGHERTY MD Ot Z90.710 ACQUIRED ABSENCE OF BOTH CERVIX AND UTER 09/09/2018 TRUNG WIGGINS P G43.909 MIGRAINE, UNSPECIFIED, NOT INTRACTABLE, WITHOUT STATUS MIGRAINOSUS 09/09/2018 TRUNG WIGGINS P G43.909 MIGRAINE, UNSPECIFIED, NOT INTRACTABLE, WITHOUT STATUS MIGRAINOSUS 09/09/2018 TRUNG WIGGINS S R11.2 NAUSEA WITH VOMITING, UNSPECIFIED 10/31/2018 JAXSON ANDERSON MD Ot F41.9 ANXIETY DISORDER, UNSPECIFIED 10/31/2018 JAXSON ANDERSON MD Ot G43.909 MIGRAINE, UNSP, NOT INTRACTABLE, WITHOUT 10/31/2018 JAXSON ANDERSON MD Ot R51 HEADACHE 10/31/2018 JAXSON ANDERSON MD Ot Z88.2 ALLERGY STATUS TO SULFONAMIDES STATUS 10/31/2018 JAXSON ANDERSON MD Ot Z88.6 ALLERGY STATUS TO ANALGESIC AGENT STATUS 10/31/2018 JAXSON ANDERSON MD Ot Z88.8 ALLERGY STATUS TO OTH DRUG/MEDS/BIOL SUB 10/31/2018 JAXSON ANDERSON MD Ot Z90.710 ACQUIRED ABSENCE OF BOTH CERVIX AND UTER 11/04/2018 JAXSON ANDERSON MD Ot F41.9 ANXIETY DISORDER, UNSPECIFIED 11/04/2018 JAXSON ANDERSON MD Ot G43.909 MIGRAINE, UNSP, NOT INTRACTABLE, WITHOUT 11/04/2018 JAXSON ANDERSON MD Ot R51 HEADACHE 11/04/2018 JAXSON ANDERSON MD Ot Z88.2 ALLERGY STATUS TO SULFONAMIDES STATUS 11/04/2018 JAXSON ANDERSON MD Ot Z88.6 ALLERGY STATUS TO ANALGESIC AGENT STATUS 11/04/2018 JAXSON ANDERSON MD Ot Z88.8 ALLERGY STATUS TO OTH DRUG/MEDS/BIOL SUB 11/04/2018 JAXSON ANDERSON MD Ot Z90.710 ACQUIRED ABSENCE OF BOTH CERVIX AND UTER 11/14/2018 RAINA RESENDIZ, WENCESLAO Medina Ot M54.41 LUMBAGO WITH SCIATICA, RIGHT SIDE Procedures There is no data. Results Test Result Range CULTURE, THROAT - 10/12/18 16:56 CULTURE, THROAT SEE NOTE NRG VITAMIN D, 25-H - 11/07/18 19:01 VITAMIN D,25-OH,TOTAL,IA 26 ng/mL 30-100 PDM - PANEL (PROFILE 1) - 12/12/18 15:20 Prescribed Drug 1 Lorazepam NRG Creatinine 20.4 mg/dL > or=20.0 pH 6.64 4.5 - 9.0 Oxidant NEGATIVE mcg/mL <200 Amphetamines NEGATIVE ng/mL <500 medMATCH Amphetamines CONSISTENT NRG Benzodiazepines POSITIVE ng/mL <100 Marijuana Metabolite NEGATIVE ng/mL <20 medMATCH Marijuana Metab CONSISTENT NRG Cocaine Metabolite NEGATIVE ng/mL <150 medMATCH Cocaine Metab CONSISTENT NRG Opiates POSITIVE ng/mL <100 Oxycodone NEGATIVE ng/mL <100 medMATCH Oxycodone CONSISTENT NRG COMMENT NRG Alphahydroxyalprazolam NEGATIVE ng/mL <25 medMATCH aOH alprazolam CONSISTENT NRG Alphahydroxymidazolam NEGATIVE ng/mL <50 medMATCH aOH midazolam CONSISTENT NRG Alphahydroxytriazolam NEGATIVE ng/mL <50 medMATCH aOH triazolam CONSISTENT NRG Aminoclonazepam NEGATIVE ng/mL <25 medMATCH Aminoclonazepam CONSISTENT NRG Hydroxyethylflurazepam NEGATIVE ng/mL <50 medMATCH OH,Et flurazepam CONSISTENT NRG Lorazepam 457 ng/mL <50 medMATCH Lorazepam CONSISTENT NRG Nordiazepam NEGATIVE ng/mL <50 medMATCH Nordiazepam CONSISTENT NRG Oxazepam NEGATIVE ng/mL <50 medMATCH Oxazepam CONSISTENT NRG Temazepam NEGATIVE ng/mL <50 medMATCH Temazepam CONSISTENT NRG Codeine NEGATIVE ng/mL <50 medMATCH Codeine CONSISTENT NRG Hydrocodone 110 ng/mL <50 medMATCH Hydrocodone INCONSISTENT NRG Hydromorphone NEGATIVE ng/mL <50 medMATCH Hydromorphone CONSISTENT NRG Morphine NEGATIVE ng/mL <50 medMATCH Morphine CONSISTENT NRG Norhydrocodone 282 ng/mL <50 medMATCH Norhydrocodone INCONSISTENT NRG Barbiturates NEGATIVE ng/mL <300 medMATCH Barbiturates CONSISTENT NRG Methadone Metabolite NEGATIVE ng/mL <100 medMATCH Methadone Metab CONSISTENT NRG Phencyclidine NEGATIVE ng/mL <25 medMATCH Phencyclidine CONSISTENT NRG Encounters ACCT No. Visit Date/Time Discharge Status Pt. Type Provider Facility Loc./Unit Complaint [id number] 12/18/2018 18:10:00 ACT Outpatient WENCESLAO PARIS [facility] [id number] 12/12/2018 14:15:00 Document Registration [id number] 11/07/2018 17:20:00 Document Registration [id number] 10/12/2018 16:20:00 Document Registration [id number] 06/23/2018 04:07:00 ACT Unknown [facility] NSER HEADACHE [id number] 06/22/2018 22:07:00 ACT Unknown [facility] NSER HEADACHE [id number] 03/24/2018 19:16:00 [facility] [id number] 01/09/2017 18:47:00 ACT Unknown REDD GASTELUM [facility] NSER HEADACHE [id number] 01/07/2017 21:26:00 ACT Unknown Alma Rosa ADEN [facility] NSER HEADACHE [id number] 06/24/2016 20:12:00 ACT Unknown LEIDA AKHTAR [facility] NSER HEADACHE [id number] 06/26/2015 20:27:00 ACT Unknown JC LLANES [id number] 10/31/2018 16:57:00 10/31/2018 18:30:00 DIS Emergency JUSTIN RESENDIZ, JAXSON Mejia [facility] ER FS HEADACHE [id number] 10/24/2018 15:25:00 10/24/2018 23:59:59 CLS Outpatient WENCESLAO PARIS MD [facility] RAD FS M54.41 [id number] 08/22/2018 09:55:00 08/22/2018 12:18:00 DIS Emergency SABINA DOUGHERTY MD [facility] ER FS HEADACHE [id number] 08/21/2018 21:49:00 08/22/2018 00:46:00 DIS Emergency JOEL ELLIOTT DO [facility] ER FS MIGRAINE, NAUSEA, SENSITIVE TO LIGHT AND SMELLS
[2018-12-20] MEDS ORDERED: ACETAMINOPHEN 500 MG TAB (TYLENOL) PO ONE (16:00)
[2018-12-20] MEDS ORDERED: KETOROLAC 30 MG/ML VIAL IM ONE (16:00)
[2018-12-20] MEDS ORDERED: DEXAMETHASONE 10 MG/ML (DECADRON) 1 ML VIAL IM ONE (16:00)
[2018-12-20] MEDS ORDERED: diphenhydrAMINE 50 MG/ML INJ (BENADRYL) IM ONE (16:00)
[2018-12-20] MEDS ORDERED: PROMETHAZINE INJ 25 MG/ML (PHENERGAN) AMP IM ONE (16:00)
--- NOTE | 2018-12-20 16:07 | ED Headache ---
General Chief Complaint: Head/Cervical Problems Stated Complaint: MIGRAINE;NAUSEA;VOMITING Nursing Triage Note: Patient has an extensive history of migraines, states her headache began worsening at 0900 this morning, took oral benadryl, ativen, tylenol, and motrin at home without relief. Nursing Sepsis Screen: No Definite Risk Source: patient, RN notes reviewed, old records Exam Limitations: no limitations History of Present Illness Date Seen by Provider: Dec 20, 2018 Time Seen by Provider: 15:46 Initial Comments Patient presents c/ c/o having a Migraine since 09:00 this AM. Patient very well known to the ED staff. Reportedly has been frequenting here c/ similar complaints for years. States she sees a Neurologist up in [place] in the [facility]. Reportedly took Benadryl, Ibuprofen, Tylenol, and Ativan this AM s/ any relief. Timing/Duration: 4-6 hours, constant Severity/Quality: severe, throbbing Prior Headaches/Recent Trauma: frequent headaches Modifying Factors: worse with exposure to light Associated Symptoms: denies symptoms (x/ as noted.) Allergies and Home Medications Allergies Coded Allergies: cefuroxime (Verified Allergy, Unknown, 08/21/18) haloperidol (Verified Allergy, Unknown, 10/31/18) magnesium (Verified Allergy, Unknown, 08/21/18) prochlorperazine (Verified Allergy, Unknown, rash, 08/21/18) topiramate (Verified Allergy, Unknown, 08/21/18) tramadol (Verified Allergy, Unknown, 10/31/18) Uncoded Allergies: SULFA (Allergy, Mild, itchy, 08/21/18) DHE (Allergy, Unknown, 10/31/18) Home Medications Cyclobenzaprine HCl 10 Mg Tablet, 10 MG PO Q8H PRN for SPASMS Prescribed by: JAXSON ANDERSON on 10/31/18 1810 Patient Home Medication List Home Medication List Reviewed: Yes Review of Systems Review of Systems Constitutional: see HPI Eyes: See HPI, Photophobia Psychiatric/Neurological: See HPI, Headache All Other Systems Reviewed Negative Unless Noted: Yes (Negative excepted noted.) Past Hrqyidn-Xwiwwb-Uyjayk Hx Patient Social History Alcohol Use: Denies Use Recreational Drug Use: No Smoking Status: Never a Smoker 2nd Hand Smoke Exposure: No Recent Foreign Travel: No Contact w/Someone Who Travel: No Recent Infectious Disease Expo: No Recent Hopitalizations: No Physical Abuse: No Sexual Abuse: No Mistreated: No Fear: No Seasonal Allergies Seasonal Allergies: No Past Medical History Surgeries: Yes 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 Respiratory: No Cardiac: No 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 oz. 70.051462th; BMI Method:Stated General Appearance: WD/WN, no apparent distress HEENT: PERRL/EOMI, normal ENT inspection, pharynx normal Neck: supple, normal inspection Cardiovascular: regular rate, rhythm Respiratory: no respiratory distress Psychiatric: alert, oriented x 3, depressed affect Crainal Nerves: normal hearing, normal speech, PERRL Coordination/Gait: normal finger to nose, normal gait Motor/Sensory: no motor deficit, no sensory deficit, no pronator drift Skin: warm/dry Progress/Results/Core Measures Results/Orders My Orders Orders - KATIA LIRIANO DO Ketorolac Injection (Toradol Injection) (12/20/18 16:00) Diphenhydramine Injection (Benadryl Inje (12/20/18 16:00) Dexamethasone Injection (Decadron Inject (12/20/18 16:00) Promethazine Injection (Phenergan Injec (12/20/18 16:00) Acetaminophen Tablet (Tylenol Tablet) (12/20/18 16:00) Medications Given in ED Current Medications Medications Dose Ordered Sig/Shell Route Start Time Stop Time Status Last Admin Dose Admin Dexamethasone Sodium Phosphate 15 mg ONCE ONCE IM 12/20/18 16:00 12/20/18 16:03 DC 12/20/18 16:15 20 MG Diphenhydramine HCl 50 mg ONCE ONCE IM 12/20/18 16:00 12/20/18 16:03 DC 12/20/18 16:16 50 MG Ketorolac Tromethamine 15 mg ONCE ONCE IM 12/20/18 16:00 12/20/18 16:03 DC 12/20/18 16:16 15 MG Promethazine HCl 25 mg ONCE ONCE IM 12/20/18 16:00 12/20/18 16:03 DC 12/20/18 16:15 25 MG Vital Signs/I&O 12/20/18 15:35 Temp 99.3 Pulse 85 Resp 18 B/P (MAP) 130/79 (96) Pulse Ox 96 O2 Delivery Room Air Blood Pressure Mean: 96 Progress Progress Note : Progress Note Stated she was ready for discharge shortly p/ receiving the Tylenol, Toradol, Phenergan, and Decadron. Departure Impression Primary Impression: Migraine Disposition: 01 HOME, SELF-CARE Condition: Stable Departure-Patient Inst. Decision time for Depature: 16:22 Referrals: WENCESLAO PARIS MD (PCP/Family) Primary Care Physician Patient Instructions: Migraine Headache (DC) Add. Discharge Instructions: All discharge instructions reviewed with patient and/or family. Voiced understanding. HIGHLY RECOMMEND YOU FOLLOW UP WITH YOUR NEUROLOGIST TIESHA REGARDING YOUR HEADACHES. DISCUSSED, THERE ARE SEVERAL NEW MIGRAINE TREATMENT OPTIONS AVAILABLE. KATIA LIRIANO DO Dec 20, 2018 16:07
[2018-12-20 16:30] VITALS: BP 130/79
== END 2018-12-20 16:30 | disposition home or self-care (01) ==
LOC: EDUNIT# 15:34 → ER FS 15:36
DX: G43.909 Migraine, unspecified, not intractable, without status migrainosus (principal); F41.9 Anxiety disorder, unspecified; Z90.710 Acquired absence of both cervix and uterus; Z88.2 Allergy status to sulfonamides; Z88.5 Allergy status to narcotic agent; Z88.8 Allergy status to other drugs, medicaments and biological substances
CPT/HCPCS: 99284

== ENCOUNTER 2018-12-23 18:46 | Emergency (ER) | payer MEDICARE, OTHER ==
[~2018-12-23] VITALS: Ht 165.1 cm; Wt 90.7 kg
--- NOTE | 2018-12-23 20:15 | ED General ---
General Stated Complaint: MIGRAINE History of Present Illness Date Seen by Provider: Dec 23, 2018 Time Seen by Provider: 20:15 Initial Comments Patient presents emergency department for evaluation of a migraine headache that has been going on for at least 4-5 days and she was seen on 12/20 for similar and given multiple medications and she said it helped transiently but the headache has returned. Patient appears to have frequent migraine headaches and she says she follows with a neurologist and takes multiple medications that haven't been helping and she does get Botox injections as well. She has multiple allergies to several different migraine medications which makes it quite difficult to find adequate treatment plan. She says the headache is frontal pounding associated with photophobia and phonophobia nausea but no vomiting neck Stiffness fevers or chills. She is in no obvious distress with normal vital signs. Allergies and Home Medications Allergies Coded Allergies: cefuroxime (Verified Allergy, Unknown, 08/21/18) haloperidol (Verified Allergy, Unknown, 10/31/18) magnesium (Verified Allergy, Unknown, 08/21/18) prochlorperazine (Verified Allergy, Unknown, rash, 08/21/18) topiramate (Verified Allergy, Unknown, 08/21/18) tramadol (Verified Allergy, Unknown, 10/31/18) Uncoded Allergies: SULFA (Allergy, Mild, itchy, 08/21/18) DHE (Allergy, Unknown, 10/31/18) Home Medications Cyclobenzaprine HCl 10 Mg Tablet, 10 MG PO Q8H PRN for SPASMS Prescribed by: JAXSON ANDERSON on 10/31/18 1810 Patient Home Medication List Home Medication List Reviewed: Yes Review of Systems Review of Systems Constitutional: no symptoms reported EENTM: no symptoms reported Respiratory: no symptoms reported Cardiovascular: no symptoms reported Gastrointestinal: nausea Musculoskeletal: no symptoms reported Skin: no symptoms reported Psychiatric/Neurological: Headache Past Szycfza-Amqlju-Gqrhoi Hx Patient Social History 2nd Hand Smoke Exposure: No Recent Foreign Travel: No Contact w/Someone Who Travel: No Recent Hopitalizations: No Seasonal Allergies Seasonal Allergies: No Past Medical History Surgeries: Yes 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 Respiratory: No Cardiac: No 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 oz. 70.136053ib; BMI Method:Stated General Appearance: No Apparent Distress, WD/WN HEENT: PERRL/EOMI Neck: Full Range of Motion, Supple Respiratory: No Respiratory Distress Cardiovascular: Regular Rate, Rhythm Neurologic/Psychiatric: Alert, Oriented x3, No Motor/Sensory Deficits, Normal Mood/Affect, certified orthotist/pedorthist II-XII Norm as Tested Skin: Normal Color, Warm/Dry Progress/Results/Core Measures Suspected Sepsis SIRS Temperature: Pulse: Respiratory Rate: Blood Pressure / Mean: Results/Orders My Orders Orders - VERONICA LORA DO Promethazine Injection (Phenergan Injec (12/23/18 20:30) Diphenhydramine Injection (Benadryl Inje (12/23/18 20:30) Ketorolac Injection (Toradol Injection) (12/23/18 20:30) Vital Signs/I&O 12/23/18 20:17 Temp 98.5 Pulse 84 Resp 16 B/P (MAP) 131/65 (87) Pulse Ox 99 O2 Delivery Room Air Capillary Refill : Progress Note : Progress Note Patient presenting to the emergency department for evaluation of headaches that are typical for her migraine headaches that she says there is nothing different with them rather and has just stopped. No red flag signs or symptoms consistent eating further workup imaging or transfer. She was given Phenergan and Benadryl and Toradol here with improved symptoms. Patient will be discharged in stable condition told to follow with her neurologist and come back to the ED sooner with worsening pain fevers vomiting or other general concerns. Departure Impression Primary Impression: Migraine Qualified Codes: G43.909 - Migraine, unspecified, not intractable, without status migrainosus Disposition: 01 HOME, SELF-CARE Condition: Stable Departure-Patient Inst. Referrals: WENCESLAO PARIS MD (PCP/Family) Primary Care Physician Patient Instructions: Migraine Headache (DC) VERONICA LORA DO Dec 23, 2018 20:15
[2018-12-23] MEDS ORDERED: diphenhydrAMINE 50 MG/ML INJ (BENADRYL) IM ONE (20:30)
[2018-12-23] MEDS ORDERED: KETOROLAC 60 MG/2 ML VIAL IM ONE (20:30)
[2018-12-23] MEDS ORDERED: PROMETHAZINE INJ 25 MG/ML (PHENERGAN) AMP IM ONE (20:30)
[2018-12-23 20:50] VITALS: BP 113/62
--- OUTSIDE RECORDS SUMMARY | 2018-12-24 02:05 | XMS REPORT | Continuity of Care Document ---
Author Organization Unknown Address Unknown Allergies Active Description Code Type Severity Reaction Onset Reported/Identified Relationship to Patient Clinical Status Yes Sulfa (Sulfonamides) 491 Unknown N/A 06/24/2016 Yes Ceftin 3716 Unknown N/A 03/24/2018 Yes Compazine 3622 Unknown N/A 03/24/2018 Yes Magnesium 784 Unknown N/A 03/24/2018 Yes Topamax 19769 Unknown N/A 03/24/2018 Yes SULFA SULFA Mild itchy 08/21/2018 Yes cefuroxime [id number] Drug Allergy Unknown N/A 08/21/2018 Yes magnesium [id number] Drug Allergy Unknown N/A 08/21/2018 Yes No Known Drug Allergies [id number] Drug Allergy Unknown N/A 08/21/2018 Yes prochlorperazine [id number] Drug Allergy Unknown rash 08/21/2018 Yes topiramate [id number] Drug Allergy Unknown N/A 08/21/2018 Yes DHE DHE Unknown N/A 10/31/2018 Yes haloperidol [id number] Drug Allergy Unknown N/A 10/31/2018 Yes tramadol [id number] Drug Allergy Unknown N/A 10/31/2018 Medications There [...] AURA, NOT INTRACTABLE, WITHOUT STATUS MIGRAINOSUS 07/18/2018 [facility] P G43.809 OTHER MIGRAINE, NOT INTRACTABLE, WITHOUT STATUS MIGRAINOSUS 07/18/2018 [facility] A R51 HEADACHE 08/22/2018 [facility] [...] Status Pt. Type Provider Facility Loc./Unit Complaint [id number] 12/18/2018 18:10:00 12/18/2018 23:59:59 CLS Outpatient WENCESLAO PARIS [facility] [id number] 12/12/2018 14:15:00 Document Registration [id number] 11/07/2018 17:20:00 Document Registration [id number] 10/12/2018 16:20:00 Document Registration [id number] 06/23/2018 04:07:00 ACT Unknown [facility] NSER HEADACHE [id number] 06/22/2018 22:07:00 ACT Unknown [facility] NSER HEADACHE [id number] 03/24/2018 19:16:00 [id number] 01/09/2017 18:47:00 ACT Unknown REDD GASTELUM [facility] NSER HEADACHE [id number] 01/07/2017 21:26:00 ACT Unknown Alma Rosa ADEN [facility] NSER HEADACHE [id number] 06/24/2016 20:12:00 ACT Unknown LEIDA AKHTAR [facility] NSER HEADACHE [id number] 06/26/2015 20:27:00 ACT Unknown MARIO ALBERTO JC R [id number] 12/23/2018 18:47:00 12/23/2018 20:51:00 DIS Emergency VERONICA LORA DO [facility] ER FS MIGRAINE [id number] 2018 15:36:00 2018 16:30:00 DIS Emergency KATIA LIRIANO DO [facility] ER FS MIGRAINE;NAUSEA;VOMITING [id number] 10/31/2018 16:57:00 10/31/2018 18:30:00 DIS Emergency JAXSON ANDERSON MD [facility] ER FS HEADACHE [id number] 10/24/2018 15:25:00 10/24/2018 23:59:59 CLS Outpatient WENCESLAO PARIS MD [facility] RAD FS [id number] 08/22/2018 09:55:00 08/22/2018 12:18:00 DIS Emergency SABINA DOUGHERTY MD [facility] ER FS HEADACHE [id number] 08/21/2018 21:49:00 08/22/2018 00:46:00 DIS Emergency JOEL ELLIOTT DO [facility] ER FS MIGRAINE, NAUSEA, SENSITIVE TO LIGHT AND SMELLS
== END 2018-12-23 20:51 | disposition home or self-care (01) ==
LOC: EDUNIT# 18:46 → ER FS 18:47
DX: G43.909 Migraine, unspecified, not intractable, without status migrainosus (principal); F41.9 Anxiety disorder, unspecified; Z90.710 Acquired absence of both cervix and uterus; Z88.1 Allergy status to other antibiotic agents; Z88.5 Allergy status to narcotic agent; Z88.2 Allergy status to sulfonamides; Z88.8 Allergy status to other drugs, medicaments and biological substances
CPT/HCPCS: 99284

== ENCOUNTER 2019-01-01 10:20 | Emergency (ER) | payer MEDICARE, OTHER ==
[~2019-01-01] VITALS: Ht 165.1 cm; Wt 90.7 kg
--- OUTSIDE RECORDS SUMMARY | 2019-01-01 10:40 | XMS REPORT ---
Author Author WENCESLAO PARIS Organization [facility] Address [address] [place] [address] Care Team Providers Care Market Stall Vendor Name Role Phone WENCESLAO PARIS Unavailable PROBLEMS Type Condition ICD9-CM Code TMN11-TF Code Onset Dates Condition Status SNOMED Code Problem Hypothyroidism E03.9 Active 17360645 Problem S/P hysterectomy Z90.710 Nov, Active 000991563 Problem Chronic cluster headache, not intractable G44.029 Aug, Active 682076430 Problem Migraine with aura and without status migrainosus, not intractable G43.109 Mar, Active 2561808 Problem Breast lesion N64.9 Aug, Active 02576119 Problem Streptococcal carrier Z22.338 Apr, Active Problem Obsessive-compulsive disorders F42.9 Active 860130460 Problem 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 Sep, Active 69088385 Problem Intractable migraine without status migrainosus, unspecified migraine type G43.919 Active 332934920 Problem Attention deficit hyperactivity disorder (ADHD) F90.9 Apr, Active 731900247 Problem Migraine without status migrainosus, not intractable, unspecified migraine type G43.909 Active 13575885 Problem Sleep apnea G47.30 Sep, Active 37401107 Problem Intractable migraine without aura and with status migrainosus G43.011 Active 892990014 Problem Vitamin D deficiency E55.9 Active 17961111 Problem Chronic migraine without aura without status migrainosus, not intractable G43.709 Active 006468374 Problem Mild episode of recurrent major depressive disorder F33.0 Active 710079007 ALLERGIES Substance Reaction Event Type Date Status Ceftin rash Drug Allergy Aug, Active LATEX sensitivity Non Drug Allergy Aug, Active adhesive-tape rash Non Drug Allergy Aug, Active Topamax confusion Drug Allergy Aug, Active Sulfamethoxazole-Trimethoprim rash Drug Allergy Aug, Active Magnesium rash Drug Allergy Aug, Active DHEA Unknown Drug Allergy Aug, Active Compazine itching Drug Allergy Aug, Active ENCOUNTERS Encounter Location Date Diagnosis [facility] [address] [place] [address] Nov, Migraine without status migrainosus, not intractable, unspecified migraine type G43.909 [facility] [address] [place] [address] Nov, Intractable migraine without status migrainosus, unspecified migraine type G43.919 and Muscle pain M79.10 [facility] [address] [address] Nov, [facility] [address] [address] Nov, [facility] [address] [address] Nov, Mild episode of recurrent major depressive disorder F33.0 [facility] [address] [address] Nov, Intractable migraine without aura and with status migrainosus G43.011 ; Hypothyroidism E03.9 ; 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 and Mild episode of recurrent major depressive disorder F33.0 [facility] [address] [place] [address] 18 Nov, 2018 Chronic migraine without aura without status migrainosus, not intractable G43.[address] [address] Nov, [facility] [address] [address] 17 Nov, 2018 [facility] [address] [place] [address] 16 Nov, 2018 Migraine G43.909 [facility] [place] [facility] [address] [place] [address] 14 Nov, 2018 Migraine G43.909 [facility] [address] [address] 13 Nov, [address] [address] Nov, [facility] [address] [place] [address] Nov, Migraine without status migrainosus, not intractable, unspecified migraine type G43.909 [facility] [place] [address] [place] [address] Nov, Migraine without aura and without status migrainosus, not intractable G43.009 [facility] [address] [place] [address] Nov, [facility] [address] [address] Nov, Migraine with aura and without status migrainosus, not intractable G43.109 [facility] [address] [place] [address] Nov, Migraine without aura and without status migrainosus, not intractable G43.009 [facility] [address] [address] October, Migraine without aura and without status migrainosus, not intractable G43.009 [facility] [place] [address] [place] [address] October, Migraine without status migrainosus, not intractable, unspecified migraine type G43.909 [facility] [address] [address] October, Migraine without status migrainosus, not intractable, unspecified migraine type G43.909 [facility] [address] [address] October, [facility] [address] [place] [address] October, [facility] [address] [address] October, [facility] [address] [address] October, [facility] [address] [address] October, Intractable migraine without status migrainosus, unspecified migraine type G43.919 and Vitamin D deficiency E55.9 [facility] [address] [address] October, Migraine with aura and without status migrainosus, not intractable G43.109 [facility] [address] [address] October, [facility] [address] [address] October, [facility] [address] [address] October, Migraine with aura and without status migrainosus, not intractable G43.109 [facility] JO[facility] [address] [address] October, [facility] [address] [address] October, [facility] [address] [address] October, Migraine without aura and without status migrainosus, not intractable G43.009 [facility] [place] [address] [place] [address] October, Migraine without aura and without status migrainosus, not intractable G43.009 ; Vitamin D deficiency E55.9 and Acquired hypothyroidism E03.[address] [address] October, Periorbital cellulitis of right eye L03.213 ; Acute bacterial conjunctivitis of right eye H10.31 ; Acute right-sided low back pain with right-sided sciatica M54.41 ; Acquired hypothyroidism E03.9 and Vitamin D deficiency E55.9 [facility] [place] [address] [place] [address] Sep, Intractable migraine without aura and without status migrainosus G43.019 [facility] W[facility] IN [address] [address] Sep, Migraine without status migrainosus, not intractable, unspecified migraine type G43.909 ; Nausea R11.0 and Light sensitivity R68.[address] [address] Sep, [facility] [address] [place] [address] Sep, Migraine without aura and without status migrainosus, not intractable G43.009 [facility] [address] [address] Sep, [facility] [address] [address] Sep, [facility] [address] [address] Sep, [facility] [place] [address] [place] [address] Sep, Acute non-recurrent frontal sinusitis J01.10 ; Blepharitis of right upper eyelid, unspecified type H01.001 ; Pharyngitis, unspecified etiology J02.9 and Intractable migraine with aura with status migrainosus G43.111 [facility] [address] [address] Sep, [facility] [address] [address] Sep, [facility] [address] [address] Sep, [facility] [place] [address] [place] [address] 17 Sep, 2018 Migraine without aura and without status migrainosus, not intractable G43.009 and Allergic rhinitis J30.9 [facility] [address] [address] Sep, Migraine without aura and without status migrainosus, not intractable G43.009 [facility] [address] [address] Sep, [facility] [place] [address] [place] [address] Sep, Migraine G43.909 [facility] [address] [address] Sep, Migraine without aura and without status migrainosus, not intractable G43.009 [facility] [address] [place] [address], [place] [address] Aug, Intractable migraine without aura and with status migrainosus G43.011 [facility] [address] [place] [address] Aug, [facility] [address] [place] [address] Aug, Chronic intractable headache, unspecified headache type R51 [facility] [address] [place] [address] Aug, [facility] [address] [place] [address] Aug, [facility] [address] [place] [address] Aug, [facility] [address] [place] [address] Aug, [facility] [address] [place] [address] Aug, [facility] [address] [place] [address] Aug, [facility] [address] [place] [address] Aug, [facility] [address] [place] [address] Aug, [facility] [address] [place] [address] Aug, [facility] [address] [place] [address] Aug, [facility] [address] [place] [address] Aug, [facility] [address] [place] [address] Aug, [facility] [address] [place] [address] Aug, Recurrent streptococcal tonsillitis J03.01 and Acute midline low back pain without sciatica M54.5 [facility] [address] [place] [address] Aug, Migraine G43.[address] [address] Aug, Acquired hypothyroidism E03.9 ; Migraine G43.909 and Vitamin D deficiency E55.9 [place] [address] [address] Aug, [facility] [address] [place] [address] Jul, Acute nasopharyngitis J00 ; Fever, unspecified fever cause R50.9 and Intractable migraine without aura and with status migrainosus G43.011 [place] [address] [address] Jul, [address] [address] Jul, Intractable migraine without aura and with status migrainosus G43.011 ; Migraine without aura and without status migrainosus, not intractable G43.009 and Migraine G43.909 [place] [address] [address] Jul, [facility] [address] [address] Jul, [address] [address] Jul, [facility] [address] [place] [address] Jul, Migraine G43.909 [facility] [address] [address] Jul, [facility] [address] [place] [address] Jul, Intractable migraine without aura and with status migrainosus G43.011 [facility] IN [facility] [address] [place] [address] 08 Jul, 2018 Intractable migraine without aura and with status migrainosus G43.011 [facility] IN [facility] [address] [place] [address] Jul, Migraine without aura and without status migrainosus, not intractable G43.009 [facility] [address], [place] [address] Jun, [facility] [id number], [place] [address] Jun, [facility] [address] [place] [address] May, [facility] [id number], [place] [address] May, [facility] [address] [place] [id number] [place] [address] May, [facility] [address] [place] [id number] [place] [address] May, [facility] [address] [place] [id number] [place] [address] May, [facility] [address] [place] [address] Apr, [facility] [address] [place] [address] Apr, [facility] [address], [place] [address] Apr, [facility] [address], [place] [address] Apr, [facility] [id number], [place] [address] Apr, IMMUNIZATIONS No Known Immunizations SOCIAL HISTORY Never Assessed REASON FOR VISIT Migraine PLAN OF CARE Activity Details Follow Up prn Reason: VITAL SIGNS Height 5' 7" in 2018-08-29 Weight 153lb lbs 2018-08-29 BMI 23.96 kg/m2 2018-08-29 Blood pressure systolic 112 mmHg 2018-08-29 Blood pressure diastolic 60 mmHg 2018-08-29 MEDICATIONS Medication Instructions Dosage Frequency Start Date End Date Duration Status Excedrin Extra Strength 250-250-65 MG Orally PRN 2 tablets 30 day(s) Active Magnesium Oxide (Antacid) 500 MG Orally Once a day 2 capsules at bedtime as needed 24h 30 day(s) Active Butorphanol Tartrate 10 MG/ML Nasally every 6 hrs 1 spray as needed 6h Active Cyclobenzaprine HCl 10 MG Orally Three times a day 1 tablet as needed 8h Active Botox 200 UNIT as directed Active Butorphanol Tartrate 10 mg/ml ADMINISTER 1 SPRAY EVERY 3-4 HOURS DIRECTED 5 days Active Effexor XR 150 MG Orally Once a day 1 capsule with food 24h 30 day(s) Active Naproxen Active Wellbutrin SR 150 MG Orally Once a day 1 tablet in the morning 24h 30 day(s) Active Cholecalciferol 2000 UNIT Orally Once a day 1 capsule 24h 30 day(s) Active Synthroid 200 MCG Orally Once a day 1 tablet on an empty stomach in the morning 24h 30 day(s) Active Propranolol HCl 20 MG Orally Once a day 1 tablet on an empty stomach 24h 30 day(s) Active Promethazine HCl 25 MG Rectal every 12 hrs 1 suppository as needed 12h 30 day(s) Active Ambien 5 MG Orally Once a day 1 tablet at bedtime 24h Active Synthroid 100 MCG Orally Once a day 1 tablet on an empty stomach in the morning 24h 30 day(s) Active Ativan 1 MG Orally 4 times a day 1 tablet as needed 6h 14 days Active RESULTS No Results PROCEDURES Procedure Date Ordered Result Body Site [facility] VISIT ESTABLISHED PATIENT August 29, 2018 INSTRUCTIONS MEDICATIONS ADMINISTERED No Known Medications MEDICAL (GENERAL) HISTORY Type Description Date Medical History attention deficit hyperactivity disorder Medical History obsessive-compulsive personality disorder Medical History migraine headaches Medical History breast nodule Medical History temporal mandibular joint dysfunction Medical History depression Medical History medication overuse headache 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
--- OUTSIDE RECORDS SUMMARY | 2019-01-01 10:40 | XMS REPORT ---
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 Name Role Phone EDUARDO REDD Unavailable PROBLEMS Type Condition ICD9-CM Code VIU14-XA Code Onset Dates Condition Status SNOMED Code Problem Hypothyroidism E03.9 Active 98312779 Problem S/P hysterectomy Z90.710 Nov, Active 330604042 Problem Chronic cluster headache, not intractable G44.029 Aug, Active 792313779 Problem Migraine with aura and without status migrainosus, not intractable G43.109 Mar, Active 1358685 Problem Breast lesion N64.9 Aug, Active 33883181 Problem Streptococcal carrier Z22.338 Apr, Active Problem Obsessive-compulsive disorders F42.9 Active 013719300 Problem 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 Sep, Active 40152061 Problem Intractable migraine without status migrainosus, unspecified migraine type G43.919 Active 994855105 Problem Attention deficit hyperactivity disorder (ADHD) F90.9 Apr, Active 563167838 Problem Migraine without status migrainosus, not intractable, unspecified migraine type G43.909 Active 10015582 Problem Sleep apnea G47.30 Sep, Active 94726399 Problem Intractable migraine without aura and with status migrainosus G43.011 Active 706208433 Problem Vitamin D deficiency E55.9 Active 19776389 Problem Chronic migraine without aura without status migrainosus, not intractable G43.709 Active 888772576 Problem Mild episode of recurrent major depressive disorder F33.0 Active 471906022 ALLERGIES No Information ENCOUNTERS Encounter Location Date Diagnosis [facility] [place] W[facility] IN [facility] [address] [place] [address] Nov, Migraine without status migrainosus, not intractable, unspecified migraine type G43.909 [facility] IN [facility] [address] [place] [address] Nov, Intractable migraine without status migrainosus, unspecified migraine type G43.919 and Muscle pain M79.10 [facility] [address] [place] [address] Nov, [facility] [address] [address] Nov, [facility] [place] [address] [address] Nov, Mild episode of recurrent major depressive disorder F33.0 [facility] [address] [address] Nov, Intractable migraine without aura and with status migrainosus G43.011 ; Hypothyroidism E03.9 ; 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 and Mild episode of recurrent major depressive disorder F33.0 [facility] [address] [place] [address] 18 Nov, 2018 Chronic migraine without aura without status migrainosus, not intractable G43.709 [facility] [address] [address] 17 Nov, 2018 [facility] [address] [address] 17 Nov, 2018 [facility] [address] [place] [address] 16 Nov, 2018 Migraine G43.909 [facility] [address] [place] [address] 14 Nov, 2018 Migraine G43.909 [facility] [address] [address] 13 Nov, 2018 [facility] [address] [address] 13 Nov, 2018 [facility] [address] [place] [address] 10 Nov, 2018 Migraine without status migrainosus, not intractable, unspecified migraine type G43.909 [facility] [address] [place] [address] 08 Nov, 2018 Migraine without aura and without status migrainosus, not intractable G43.009 [facility] [place] [address] [address] Nov, [facility] [place] WALK IN [facility] [address] [place] [address] Nov, Migraine with aura and without status migrainosus, not intractable G43.109 [facility] IN [facility] [address] [place] [address] Nov, Migraine without aura and without status migrainosus, not intractable G43.009 [facility] WALK IN [place] [address] [place] [address] October, Migraine without aura and without status migrainosus, not intractable G43.009 [facility] W[facility] IN [place] [address] [place] [address] October, Migraine without status migrainosus, not intractable, unspecified migraine type G43.909 [facility] W[facility] IN [place] [address] [place] [address] October, Migraine without status migrainosus, not intractable, unspecified migraine type G43.909 [facility] [address] [address] October, [facility] [address] [address] October, [facility] [address] [address] October, [facility] [address] [address] October, [facility] W[facility] IN [place] [address] [place] [address] October, Intractable migraine without status migrainosus, unspecified migraine type G43.919 and Vitamin D deficiency E55.9 [facility] [address] [address] October, Migraine with aura and without status migrainosus, not intractable G43.109 [facility] [address] [address] October, [facility] [address] [address] October, [facility] W[facility] IN [facility] [address] [place] [address] October, Migraine with aura and without status migrainosus, not intractable G43.109 [facility] [address] [address] October, [facility] [address] [address] October, [facility] W[facility] [address] [address] October, Migraine without aura and without status migrainosus, not intractable G43.009 [facility] [place] WALK IN [address] [address] October, Migraine without aura and without status migrainosus, not intractable G43.009 ; Vitamin D deficiency E55.9 and Acquired hypothyroidism E03.[address] [address] October, Periorbital cellulitis of right eye L03.213 ; Acute bacterial conjunctivitis of right eye H10.31 ; Acute right-sided low back pain with right-sided sciatica M54.41 ; Acquired hypothyroidism E03.9 and Vitamin D deficiency E55.9 [facility] IN [place] [address] [place] [address] Sep, Intractable migraine without aura and without status migrainosus G43.019 [facility] IN [address] [address] Sep, Migraine without status migrainosus, not intractable, unspecified migraine type G43.909 ; Nausea R11.0 and Light sensitivity R68.89 [facility] [address] [address] Sep, [facility] IN [address] [address] Sep, Migraine without aura and without status migrainosus, not intractable G43.009 [facility] [address] [address] Sep, [address] [address] Sep, [facility] [address] [address] Sep, [facility] W[facility] [address] [address] Sep, Acute non-recurrent frontal sinusitis J01.10 ; Blepharitis of right upper eyelid, unspecified type H01.001 ; Pharyngitis, unspecified etiology J02.9 and Intractable migraine with aura with status migrainosus G43.111 [facility] [address] [address] Sep, [facility] [address] [address] Sep, [facility] [address] [address] Sep, [facility] W[facility] IN [address] [address] Sep, Migraine without aura and without status migrainosus, not intractable G43.009 and Allergic rhinitis J30.9 [facility] IN [address] [address] Sep, Migraine without aura and without status migrainosus, not intractable G43.009 [facility] [address] [address] Sep, [facility] IN [address] [address] Sep, Migraine G43.909 [facility] W[facility] IN [address] [address] Sep, Migraine without aura and without status migrainosus, not intractable G43.009 [facility] [address] [address] Aug, Intractable migraine without aura and with status migrainosus G43.011 [facility] [address] [address] Aug, [facility] IN [address] [address] Aug, Chronic intractable headache, unspecified headache type R51 [facility] MAIN [address] [place] [address] [place] [address] Aug, [facility] [place] MAIN [address] [place] [address] [place] [address] Aug, [facility] [place] MAIN [address] [place] [address] [place] [address] Aug, [facility] [place] [address] [place] [address] Aug, [facility] [place] [address] [place] [address] Aug, [facility] [place] [address] [place] [address] Aug, [facility] [place] [address] [place] [address] Aug, [facility] [place] [address] [place] [address] Aug, [facility] [address] [place] [address] Aug, [facility] [place] MAIN [address] [place] [address] [place] [address] Aug, [facility] [address] [place] [address] Aug, [facility] [address] [place] [address] Aug, [facility] [address] [place] [address] Aug, Recurrent streptococcal tonsillitis J03.01 and Acute midline low back pain without sciatica M54.5 [facility] [address] [place] [address] Aug, Migraine G43.909 [facility] [address] [place] [address] Aug, Acquired hypothyroidism E03.9 ; Migraine G43.909 and Vitamin D deficiency E55.9 [facility] [address] [facility] [id number] [place] [address] Aug, [facility] [address] [place] [address] Jul, Acute nasopharyngitis J00 ; Fever, unspecified fever cause R50.9 and Intractable migraine without aura and with status migrainosus G43.011 [facility] [address] [place] [id number] [address] Jul, [facility] JO[place] [address] [address] Jul, Intractable migraine without aura and with status migrainosus G43.011 ; Migraine without aura and without status migrainosus, not intractable G43.009 and Migraine G43.909 [facility] [address] [place] [address] Jul, [facility] FAB[facility] [address] [address] Jul, [facility] F[facility] [address] [address] Jul, [facility] [place] W[facility] IN CARE [address] [place] [address] Jul, Migraine G43.909 [facility] FAB[facility] [address] [address] Jul, [facility] [place] WALK IN [facility] [address] [place] [address] Jul, Intractable migraine without aura and with status migrainosus G43.011 [facility] [place] WALK IN [facility] [address] [place] [address] Jul, Intractable migraine without aura and with status migrainosus G43.011 [facility] WALK IN [facility] [address] [place] [address] Jul, Migraine without aura and without status migrainosus, not intractable G43.009 [facility] [address] [address] Jun, [facility] [address] [address] Jun, [facility] [address] [address] May, [facility] [address] [address] May, [facility] [address] [address] May, [facility] [address] [address] May, [facility] [address] [address] May, [facility] [address] [address] Apr, [facility] [address] [address] Apr, [facility] [address] [address] Apr, [facility] [address] [address] Apr, [facility] [address] [address] Apr, IMMUNIZATIONS No Known Immunizations SOCIAL HISTORY Never Assessed REASON FOR VISIT med request PLAN OF CARE VITAL SIGNS MEDICATIONS Medication Instructions Dosage Frequency Start Date End Date Duration Status Zithromax Z-Ollie 250 MG Orally Once a day 2 tablets on the first day, then 1 tablet daily for 4 days 24h Aug, 5 day(s) Active RESULTS No Results PROCEDURES No Known procedures INSTRUCTIONS MEDICATIONS ADMINISTERED No Known Medications MEDICAL [...]
--- OUTSIDE RECORDS SUMMARY | 2019-01-01 10:41 | XMS REPORT | Continuity of Care Document ---
Author Organization Unknown Address Unknown Allergies Active Description Code Type Severity Reaction Onset Reported/Identified Relationship to Patient Clinical Status Yes Sulfa (Sulfonamides) 491 Unknown N/A 06/24/2016 Yes Ceftin 3716 Unknown N/A 03/24/2018 Yes Compazine 3622 Unknown N/A 03/24/2018 Yes Magnesium 784 Unknown N/A 03/24/2018 Yes Topamax 94039 Unknown N/A 03/24/2018 Yes SULFA SULFA Mild itchy 08/21/2018 Yes cefuroxime [id number] Drug Allergy Unknown N/A 08/21/2018 Yes magnesium [id number] Drug Allergy Unknown N/A 08/21/2018 Yes No Known Drug Allergies [id number] Drug Allergy Unknown N/A 08/21/2018 Yes prochlorperazine [id number] Drug Allergy Unknown rash 08/21/2018 Yes topiramate [id number] Drug Allergy Unknown N/A 08/21/2018 Yes DHE DHE Unknown N/A 10/31/2018 Yes haloperidol [id number] Drug Allergy Unknown N/A 10/31/2018 Yes tramadol [id number] Drug Allergy Unknown N/A 10/31/2018 Medications There [...] AURA, NOT INTRACTABLE, WITHOUT STATUS MIGRAINOSUS 07/18/2018 [facility] P G43.809 OTHER MIGRAINE, NOT INTRACTABLE, WITHOUT STATUS MIGRAINOSUS 07/18/2018 [facility] A R51 HEADACHE 08/22/2018 EARL ARAGON JOEL [...] Z88.2 ALLERGY STATUS TO SULFONAMIDES STATUS 08/23/2018 FARHAT RESENDIZ, SABINA Purdy Ot Z88.8 ALLERGY STATUS TO OTH DRUG/MEDS/BIOL SUB 08/23/2018 SABINA DOUGHERTY MD Ot Z90.710 ACQUIRED ABSENCE OF BOTH CERVIX AND UTER 09/09/2018 TRUNG WIGGINS L P G43.909 MIGRAINE, UNSPECIFIED, NOT INTRACTABLE, WITHOUT STATUS MIGRAINOSUS 09/09/2018 TRUNG WIGGINS L P G43.909 MIGRAINE, UNSPECIFIED, NOT INTRACTABLE, WITHOUT STATUS MIGRAINOSUS 09/09/2018 TRUNG WIGGINS L S R11.2 NAUSEA WITH VOMITING, UNSPECIFIED 10/31/2018 [...] Ot M54.41 LUMBAGO WITH SCIATICA, RIGHT SIDE 2018 KATIA LIRIANO DO Ot F41.9 ANXIETY DISORDER, UNSPECIFIED 2018 KATIA LIRIANO DO Ot G43.909 MIGRAINE, UNSP, NOT INTRACTABLE, WITHOUT 2018 KATIA LIRIANO DO Ot R51 HEADACHE 2018 KATIA LIRIANO DO Ot Z88.2 ALLERGY STATUS TO SULFONAMIDES STATUS 2018 KATIA LIRIANO DO Ot Z88.5 ALLERGY STATUS TO NARCOTIC AGENT STATUS 2018 KATIA LIRIANO DO Ot Z88.8 ALLERGY STATUS TO OTH DRUG/MEDS/BIOL SUB 2018 KATIA LIRIANO DO Ot Z90.710 ACQUIRED ABSENCE OF BOTH CERVIX AND UTER 12/23/2018 VERONICA LORA DO, Ot F41.9 ANXIETY DISORDER, UNSPECIFIED 12/23/2018 VERONICA LORA DO, Ot G43.909 MIGRAINE, UNSP, NOT INTRACTABLE, WITHOUT 12/23/2018 VERONICA LORA DO Ot Z88.1 ALLERGY STATUS TO OTHER ANTIBIOTIC AGENT 12/23/2018 VERONICA LORA DO Ot Z88.2 ALLERGY STATUS TO SULFONAMIDES STATUS 12/23/2018 VERONICA LORA DO Ot Z88.5 ALLERGY STATUS TO NARCOTIC AGENT STATUS 12/23/2018 VERONICA LORA DO Ot Z88.8 ALLERGY STATUS TO OTH DRUG/MEDS/BIOL SUB 12/23/2018 VERONICA LORA DO Ot Z90.710 ACQUIRED ABSENCE OF BOTH CERVIX AND UTER 12/24/2018 KATIA LIRIANO DO Ot F41.9 ANXIETY DISORDER, UNSPECIFIED 12/24/2018 KATIA LIRIANO DO Ot G43.909 MIGRAINE, UNSP, NOT INTRACTABLE, WITHOUT 12/24/2018 KATIA LIRIANO DO Ot R51 HEADACHE 12/24/2018 KATIA LIRIANO DO Ot Z88.2 ALLERGY STATUS TO SULFONAMIDES STATUS 12/24/2018 KATIA LIRIANO DO Ot Z88.5 ALLERGY STATUS TO NARCOTIC AGENT STATUS 12/24/2018 KATIA LIRIANO DO Ot Z88.8 ALLERGY STATUS TO OTH DRUG/MEDS/BIOL SUB 12/24/2018 KATIA LIRIANO DO Ot Z90.710 ACQUIRED ABSENCE OF BOTH CERVIX AND UTER 12/25/2018 VERONICA LORA DO Ot F41.9 ANXIETY DISORDER, UNSPECIFIED 12/25/2018 VERONICA LORA DO Ot G43.909 MIGRAINE, UNSP, NOT INTRACTABLE, WITHOUT 12/25/2018 VERONICA LORA DO Ot Z88.1 ALLERGY STATUS TO OTHER ANTIBIOTIC AGENT 12/25/2018 VERONICA LORA DO Ot Z88.2 ALLERGY STATUS TO SULFONAMIDES STATUS 12/25/2018 VERONICA LORA DO Ot Z88.5 ALLERGY STATUS TO NARCOTIC AGENT STATUS 12/25/2018 VERONICA LORA DO Ot Z88.8 ALLERGY STATUS TO OTH DRUG/MEDS/BIOL SUB 12/25/2018 GUIDO ARAGON VERONICA Alma Rosa Ot Z90.710 ACQUIRED ABSENCE OF BOTH CERVIX AND UTER Procedures There is no data. Results Test Result Range CULTURE, THROAT - 10/12/18 16:56 CULTURE, THROAT SEE NOTE NRG VITAMIN D, 25-H - 11/07/18 19:01 VITAMIN D,25-OH,TOTAL,IA 26 ng/mL 30-100 PDM - 09 PANEL (PROFILE 1) - 12/12/18 15:20 Prescribed [...] Status Pt. Type Provider Facility Loc./Unit Complaint [id number] 12/30/2018 18:20:00 ACT Outpatient WENCESLAO [facility] [id number] 12/12/2018 14:15:00 Document Registration [id number] 11/07/2018 17:20:00 Document Registration [id number] 10/12/2018 16:20:00 Document Registration [id number] 06/23/2018 04:07:00 ACT Unknown [facility] NSER HEADACHE [id number] 06/22/2018 22:07:00 ACT Unknown [facility] NSER HEADACHE [id number] 03/24/2018 19:16:00 [facility] [id number] 01/09/2017 18:47:00 ACT Unknown REDD GASTELUM [facility] NSER HEADACHE [id number] 01/07/2017 21:26:00 ACT Unknown Alma Rosa ADEN [facility] NSER HEADACHE [id number] 06/24/2016 20:12:00 ACT Unknown LEIDA AKHTAR [facility] NSER HEADACHE [id number] 06/26/2015 20:27:00 ACT Unknown JC LLANES [id number] 12/23/2018 18:47:00 12/23/2018 20:51:00 DIS Emergency VERONICA LORA DO [facility] ER FS MIGRAINE [id number] 2018 15:36:00 2018 16:30:00 DIS Emergency KATIA LIRIANO DO [facility] ER FS MIGRAINE;NAUSEA;VOMITING [id number] 10/31/2018 16:57:00 10/31/2018 18:30:00 DIS Emergency JUSTIN RESENDIZ, JAXSON Mejia [facility] ER FS HEADACHE [id number] 10/24/2018 15:25:00 10/24/2018 23:59:59 CLS Outpatient RAINA RESENDIZ, WENCESLAO Medina [facility] RAD FS M54.41 [id number] 08/22/2018 09:55:00 08/22/2018 12:18:00 DIS Emergency SABINA DOUGHERTY MD [facility] ER FS HEADACHE [id number] 08/21/2018 21:49:00 08/22/2018 00:46:00 DIS Emergency JOEL ELLIOTT DO [facility] ER FS MIGRAINE, NAUSEA, SENSITIVE TO LIGHT AND SMELLS
[2019-01-01] MEDS ORDERED: KETOROLAC 30 MG/ML VIAL IVP ONE (10:45)
[2019-01-01] MEDS ORDERED: NS IV 1000 ML 1,000 ML IV SCH (10:45)
[2019-01-01] MEDS ORDERED: DEXAMETHASONE 4 MG/ML SDV (DECADRON) IV ONE (10:45)
[2019-01-01] MEDS ORDERED: PROMETHAZINE INJ 25 MG/ML (PHENERGAN) AMP IVP ONE (10:45)
[2019-01-01] MEDS ORDERED: diphenhydrAMINE 50 MG/ML INJ (BENADRYL) IVP ONE (10:45)
--- NOTE | 2019-01-01 10:50 | ED Headache ---
General Chief Complaint: Head/Cervical Problems Stated Complaint: HEADACHE Nursing Triage Note: Pt reporting typical migraine headache that lingers. Pt here to ER December 23 for migraine that developed a few days prior December 20 also in ER for this. No medications taken today. States has a double ear infection that she has just took 1 dose of antibiotics rec'd. Nursing Sepsis Screen: No Definite Risk Source: patient History of Present Illness Date Seen by Provider: Jan 01, 2019 Time Seen by Provider: 10:46 Initial Comments Patient is a 38-year-old female with history of chronic recurrent daily migraines who is currently on propranolol, Effexor, Wellbutrin and receiving Botox injections for treatment of her chronic pain. This morning, the patient's headache continues. It is located in the temporal and retro-orbital region is described as throbbing and is associated with nausea and light sensitivity. Patient has not vomited and was able to drive herself to the emergency department. Denies change in severity symptoms pattern or progression of previous migraine headaches. Patient has an appointment to follow up with her neurologist in 2 weeks. No other acute symptoms or complaints. Patient has a p rior hysterectomy. Timing/Duration: 1 week Severity/Quality: moderate Location: frontal, temporal Prior Headaches/Recent Trauma: no recent headache/trauma, chronic headaches Modifying Factors: improves with medication Allergies and Home Medications Allergies Coded Allergies: cefuroxime (Verified Allergy, Unknown, 08/21/18) haloperidol (Verified Allergy, Unknown, 10/31/18) magnesium (Verified Allergy, Unknown, 08/21/18) prochlorperazine (Verified Allergy, Unknown, rash, 08/21/18) topiramate (Verified Allergy, Unknown, 08/21/18) tramadol (Verified Allergy, Unknown, 10/31/18) Uncoded Allergies: SULFA (Allergy, Mild, itchy, 08/21/18) DHE (Allergy, Unknown, 10/31/18) Home Medications Cyclobenzaprine HCl 10 Mg Tablet, 10 MG PO Q8H PRN for SPASMS Prescribed by: JAXSON ANDERSON on 10/31/18 1810 Patient Home Medication List Home Medication List Reviewed: Yes Review of Systems Review of Systems Constitutional: no symptoms reported Eyes: Photophobia Ears, Nose, Mouth, Throat: no symptoms reported Respiratory: no symptoms reported Cardiovascular: no symptoms reported Gastrointestinal: no symptoms reported Musculoskeletal: no symptoms reported Skin: see HPI Psychiatric/Neurological: See HPI, Anxiety, Depressed Past Pukvzdf-Qtnlmx-Mypurl Hx Past Med/Social Hx: Reviewed Nursing Past Med/Soc Hx Patient Social History Alcohol Use: Denies Use Recreational Drug Use: No Smoking Status: Never a Smoker 2nd Hand Smoke Exposure: No Recent Foreign Travel: No Contact w/Someone Who Travel: No Recent Infectious Disease Expo: No Recent Hopitalizations: No Physical Abuse: No Sexual Abuse: No Mistreated: No Fear: No Seasonal Allergies Seasonal Allergies: No Past Medical History Surgeries: Yes 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 Respiratory: No Cardiac: No 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 oz. 90.160421dk; BMI Method:Stated General Appearance: WD/WN, no apparent distress HEENT: PERRL/EOMI, normal ENT inspection Neck: non-tender, full range of motion Cardiovascular: normal peripheral pulses, regular rate, rhythm Respiratory: chest non-tender, lungs clear, normal breath sounds Gastrointestinal: normal bowel sounds, soft Extremities: normal range of motion, non-tender Psychiatric: alert, oriented x 3, depressed affect Crainal Nerves: normal hearing, normal speech, PERRL; No abnormal speech, No facial asymmetry, No facial droop, No facial paresthesias, No facial weakness, No hearing deficit (R), No hearing deficit (L), No tongue deviation to R, No tongue deviation to L Coordination/Gait: normal gait Motor/Sensory: no motor deficit, no sensory deficit Skin: normal color Progress/Results/Core Measures Results/Orders My Orders Orders - TRISTEN LANDRY DO Ketorolac Injection (Toradol Injection) (01/01/19 10:45) Promethazine Injection (Phenergan Injec (01/01/19 10:45) Diphenhydramine Injection (Benadryl Inje (01/01/19 10:45) Ns Iv 1000 Ml (Sodium Chloride 0.9%) (01/01/19 10:45) Dexamethasone Injection (Decadron Inject (01/01/19 10:45) Vital Signs/I&O 01/01/19 10:29 Temp 98.9 Pulse 85 Resp 20 B/P (MAP) 137/72 (93) Pulse Ox 98 O2 Delivery Room Air Blood Pressure Mean: 93 Departure Communication (Admissions) Chronic recurrent migraine headaches. No medication taken this morning prior to ED visit. Typical migraine cocktail provided. Recommendations are to follow up with her neurologist as scheduled. Impression Primary Impression: Migraine Disposition: HOME, SELF-CARE Condition: Improved Departure-Patient Inst. Decision time for Depature: 10:50 Referrals: WENCESLAO PARIS MD (PCP) Primary Care Physician Patient Instructions: Migraine Headache (DC) Add. Discharge Instructions: Please go home and rest. Continue home migraine regimen and follow up with your neurologist as scheduled. All discharge instructions reviewed with patient and/or family. Voiced understanding. TRISTEN LANDRY DO Jan 01, 2019 10:50
[2019-01-01] MEDS ORDERED: DEXAMETHASONE 10 MG/ML (DECADRON) 1 ML VIAL IM ONE (11:15)
[2019-01-01] MEDS ORDERED: KETOROLAC 30 MG/ML VIAL IM ONE (11:15)
[2019-01-01] MEDS ORDERED: PROMETHAZINE INJ 25 MG/ML (PHENERGAN) AMP IM ONE (11:15)
[2019-01-01] MEDS ORDERED: diphenhydrAMINE 50 MG/ML INJ (BENADRYL) IM ONE (11:15)
[2019-01-01 11:30] VITALS: BP 140/73
== END 2019-01-01 11:30 | disposition home or self-care (01) ==
LOC: EDUNIT# 10:20 → ER FS 10:21
DX: G43.909 Migraine, unspecified, not intractable, without status migrainosus (principal); F41.9 Anxiety disorder, unspecified; Z90.710 Acquired absence of both cervix and uterus; Z88.5 Allergy status to narcotic agent; Z88.1 Allergy status to other antibiotic agents; Z88.8 Allergy status to other drugs, medicaments and biological substances; Z88.2 Allergy status to sulfonamides
CPT/HCPCS: 96372; 99284

== ENCOUNTER 2019-01-30 11:33 | Emergency (ER) | payer MEDICARE, OTHER ==
[~2019-01-30] VITALS: Ht 170.2 cm; Wt 70.3 kg
[2019-01-30] MEDS ORDERED: LORazepam INJ 2 MG/ML (ATIVAN) VIAL IM STA (12:30)
[2019-01-30] MEDS ORDERED: PROMETHAZINE INJ 25 MG/ML (PHENERGAN) AMP IM STA (12:30)
[2019-01-30] MEDS ORDERED: diphenhydrAMINE 50 MG/ML INJ (BENADRYL) IVP STA (12:36)
[2019-01-30] MEDS ORDERED: KETOROLAC 30 MG/ML VIAL IVP STA (12:36)
[2019-01-30] MEDS ORDERED: NS IV 1000 ML 1,000 ML IV STA (12:36)
--- NOTE | 2019-01-30 12:57 | ED Headache ---
General Chief Complaint: Head/Cervical Problems Stated Complaint: HEADACHE; VOMITING Nursing Triage Note: Patient c/o migraine and vomiting. States that she has had this migraine for the past two days and has been seen at the walk in clinic for it. She was also diagnosed with a UTI yesterday and started on macrobid. Patient reports that she has been unable to take the antibiotic due to the vomiting. Nursing Sepsis Screen: No Definite Risk Source: patient, family (Mother) History of Present Illness Date Seen by Provider: Jan 30, 2019 Time Seen by Provider: 11:51 Initial Comments 38-year-old female presenting with complaints of 2 days of left-sided migraine headache consistent with her chronic migraines. She also was diagnosed with a urinary tract infection yesterday and started on Macrobid and Pyridium. She states that she's had movements the antibiotic pills but due to her nausea and vomiting home her migraine she has not been able to keep the medicine down. She continues to have pain over her bladder and feeling somewhat of a urinary tract infection. She was having chills as well. She presents to the emergency department today because she was anxious and concerned about possibly needing IV fluids as well as not getting relief of her migraine headache. She had tried going to urgent care that they had refused to give her any more medication out of concern using Toradol to frequently for her. She also states that she tried to get in with her primary doctor Dr. Aviles but was told that he did not have any appointments. She states this feels like her usual Migraine headache and has light and sound sensitivity with it. she also has a large anxiety component with the headaches. She has been seen multiple times in the ED for similar complaints and received a cocktail of IM shots usually because she is such a difficult sti ck for IV access. Allergies and Home Medications Allergies Coded Allergies: cefuroxime (Verified Allergy, Unknown, 08/21/18) haloperidol (Verified Allergy, Unknown, 10/31/18) magnesium (Verified Allergy, Unknown, 08/21/18) prochlorperazine (Verified Allergy, Unknown, rash, 08/21/18) topiramate (Verified Allergy, Unknown, 08/21/18) tramadol (Verified Allergy, Unknown, 10/31/18) Uncoded Allergies: SULFA (Allergy, Mild, itchy, 08/21/18) DHE (Allergy, Unknown, 10/31/18) Home Medications Cyclobenzaprine HCl 10 Mg Tablet, 10 MG PO Q8H PRN for SPASMS Prescribed by: JAXSON ANDERSON on 10/31/18 1810 Patient Home Medication List Home Medication List Reviewed: Yes Review of Systems Review of Systems Constitutional: chills, fever (subjective), malaise Eyes: Photophobia Ears, Nose, Mouth, Throat: see HPI; denies epistaxis Respiratory: No cough, No short of breath Cardiovascular: No chest pain Gastrointestinal: see HPI Genitourinary: see HPI Musculoskeletal: neck pain (left sided tightness) Skin: No rash Psychiatric/Neurological: Anxiety, Headache (left sided migraine) Past Vuuoamr-Livrrh-Pgilxp Hx Past Med/Social Hx: Reviewed Nursing Past Med/Soc Hx Patient Social History Alcohol Use: Denies Use Recreational Drug Use: No Smoking Status: Never a Smoker 2nd Hand Smoke Exposure: No Recent Foreign Travel: No Contact w/Someone Who Travel: No Recent Infectious Disease Expo: No Recent Hopitalizations: No Physical Abuse: No Sexual Abuse: No Mistreated: No Fear: No Seasonal Allergies Seasonal Allergies: No Past Medical History Surgeries: Yes 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 Respiratory: No Cardiac: No Neurological: Yes 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 oz. 70.647570bp; BMI Method:Stated General Appearance: WD/WN, thin, other (becomes anxious when talking about medicine or ways to treat her Migraine) HEENT: PERRL/EOMI, normal ENT inspection, pharynx normal Neck: non-tender, full range of motion, supple, normal inspection Cardiovascular: normal peripheral pulses, regular rate, rhythm Respiratory: chest non-tender, lungs clear, normal breath sounds Gastrointestinal: normal bowel sounds, non tender, soft, no pulsatile mass Extremities: normal range of motion, non-tender, normal inspection Psychiatric: alert, oriented x 3, depressed affect Crainal Nerves: normal hearing, normal speech, PERRL Coordination/Gait: normal gait Motor/Sensory: no motor deficit, no sensory deficit Skin: normal color, warm/dry Progress/Results/Core Measures Results/Orders My Orders Orders - SUSANA LOPEZ MD Promethazine Injection (Phenergan Injec (01/30/19 12:30) Lorazepam Injection (Ativan Injection) (01/30/19 12:30) Iv/Invasive Line Insertion .IV start (01/30/19 12:36) Diphenhydramine Injection (Benadryl Inje (01/30/19 13:15) Ketorolac Injection (Toradol Injection) (01/30/19 13:15) Cyclobenzaprine Tablet (Flexeril Tablet) (01/30/19 13:23) Medications Given in ED Current Medications Medications Dose Ordered Sig/Shell Route Start Time Stop Time Status Last Admin Dose Admin Diphenhydramine HCl 50 mg ONCE ONCE IM 01/30/19 13:15 01/30/19 13:20 DC 01/30/19 13:28 50 MG Ketorolac Tromethamine 30 mg ONCE ONCE IM 01/30/19 13:15 01/30/19 13:20 DC 01/30/19 13:28 30 MG Vital Signs/I&O 01/30/19 01/30/19 11:40 13:45 Temp 99.3 98.7 Pulse 96 79 Resp 18 18 B/P (MAP) 124/70 (88) 111/66 (81) Pulse Ox 100 96 O2 Delivery Room Air Room Air Blood Pressure Mean: 88 Progress Progress Note #1: Progress Note Pt became very anxious discussing treatment options for her migraine and UTI. She wanted to try IV antibiotics and fluids if possible. Will give Ativan and Phenergan IM because she knows they will irritate her vein. Will try IVF and Toradol and benadryl by IV if can get one. Otherwise will give them IM as well. Progress Note #2: Progress Note After several attempts the nurses were unable to obtain IV access so medications were given by IM administration instead. discharge to home and advised to rest in cool dark room. Follow up with pcp and clinic. Departure Impression Primary Impression: Migraine headache without aura Qualified Codes: G43.019 - Migraine without aura, intractable, without status migrainosus Additional Impressions: Anxiety about health UTI (urinary tract infection) Qualified Codes: N30.00 - Acute cystitis without hematuria Disposition: HOME, SELF-CARE Condition: Stable Departure-Patient Inst. Decision time for Depature: 13:35 Referrals: WENCESLAO AVILES MD (PCP/Family) Primary Care Physician Patient Instructions: Migraine Headache (DC), Urinary Tract Infection, Adult (DC) Add. Discharge Instructions: Stay well hydrated Rest in cool dark room Continue on medicine as prescribed by your regular providers and check back with them for continued concerns. All discharge instructions reviewed with patient and/or family. Voiced understanding. SUSANA LOPEZ MD Jan 30, 2019 12:57
[2019-01-30] MEDS ORDERED: diphenhydrAMINE 50 MG/ML INJ (BENADRYL) IM ONE (13:15)
[2019-01-30] MEDS ORDERED: KETOROLAC 30 MG/ML VIAL IM ONE (13:15)
[2019-01-30] MEDS ORDERED: CYCLOBENZAPRINE 10 MG (FLEXERIL) TAB PO STA (13:23)
[2019-01-30 13:45] VITALS: BP 111/66
--- OUTSIDE RECORDS SUMMARY | 2019-01-30 23:56 | XMS REPORT | Continuity of Care Document ---
Author Organization Unknown Address Unknown Phone Unavailable Allergies Active Description Code Type Severity Reaction Onset Reported/Identified Relationship to Patient Clinical Status Yes Sulfa (Sulfonamides) 491 Unknown N/A 06/24/2016 Yes Ceftin 3716 Unknown N/A 03/24/2018 Yes Compazine 3622 Unknown N/A 03/24/2018 Yes Magnesium 784 Unknown N/A 03/24/2018 Yes Topamax 87922 Unknown N/A 03/24/2018 Yes SULFA SULFA Mild itchy 08/21/2018 Yes cefuroxime [id number] Drug Allergy Unknown N/A 08/21/2018 Yes magnesium [id number] Drug Allergy Unknown N/A 08/21/2018 Yes No Known Drug Allergies [id number] Drug Allergy Unknown N/A 08/21/2018 Yes prochlorperazine [id number] Drug Allergy Unknown rash 08/21/2018 Yes topiramate [id number] Drug Allergy Unknown N/A 08/21/2018 Yes DHE DHE Unknown N/A 10/31/2018 Yes haloperidol [id number] Drug Allergy Unknown N/A 10/31/2018 Yes tramadol [id number] Drug Allergy Unknown N/A 10/31/2018 Medications There is no data. Problems Date Dx Coded Attending Type Code Diagnosis Diagnosed By 07/30/2015 JC LLANES 346.90 MIGRAINE, UNSPECIFIED, WITHOUT MENTION OF INTRACTABLE MIGRAINE WITHOUT MENTION O 07/30/2015 JC LLANES P G43.909 MIGRAINE, UNSPECIFIED, NOT INTRACTABLE, WITHOUT STATUS MIGRAINOSUS 07/13/2016 LEIDA AKHTAR S E03.9 HYPOTHYROIDISM, UNSPECIFIED 07/13/2016 LEIDA AKHTAR P G43.009 MIGRAINE WITHOUT AURA, NOT INTRACTABLE, WITHOUT STATUS MIGRAINOSUS 01/26/2017 REDD GASTLEUM P G43.909 MIGRAINE, UNSPECIFIED, NOT INTRACTABLE, WITHOUT STATUS MIGRAINOSUS 01/26/2017 Alma Rosa ADEN P G43.009 MIGRAINE WITHOUT AURA, NOT INTRACTABLE, WITHOUT STATUS MIGRAINOSUS 07/18/2018 [facility] P G43.809 OTHER MIGRAINE, NOT INTRACTABLE, WITHOUT STATUS MIGRAINOSUS 07/18/2018 [facility] A R51 HEADACHE 08/22/2018 EARL ARAGON, JOEL T Ot R11.2 NAUSEA WITH VOMITING, UNSPECIFIED 08/22/2018 EARL ARAGON, JOEL T Ot R51 HEADACHE 08/22/2018 EARL ARAGON, JOEL T Ot Z88.2 ALLERGY STATUS TO SULFONAMIDES STATUS 08/22/2018 EARL ARAGON, JOEL T Ot Z88.8 ALLERGY STATUS TO OTH DRUG/MEDS/BIOL SUB 08/22/2018 SABINA DOUGHERTY MD Ot E86.0 DEHYDRATION 08/22/2018 SABINA DOUGHERTY MD, Ot F41.9 ANXIETY DISORDER, UNSPECIFIED 08/22/2018 SABINA [...] OF BOTH CERVIX AND UTER 08/23/2018 EARL ARAGON, JOEL T Ot R11.2 NAUSEA WITH VOMITING, [...] BOTH CERVIX AND UTER 12/23/2018 VERONICA LORA DO Ot F41.9 ANXIETY DISORDER, UNSPECIFIED 12/23/2018 VERONICA LORA DO Ot G43.909 MIGRAINE, UNSP, [...] STATUS TO NARCOTIC AGENT STATUS 12/25/2018 VERONICA LROA DO Ot Z88.8 ALLERGY STATUS TO OTH DRUG/MEDS/BIOL SUB 12/25/2018 VERONICA LORA DO Ot Z90.710 ACQUIRED ABSENCE OF BOTH CERVIX AND UTER 01/01/2019 SKIDMORE DO, TRISTEN Ot F41.9 ANXIETY DISORDER, UNSPECIFIED 01/01/2019 LANDRY DO, TRISTEN Ot G43.909 MIGRAINE, UNSP, NOT INTRACTABLE, WITHOUT 01/01/2019 LANDRY DO, TRISTEN Ot R51 HEADACHE 01/01/2019 LANDRY DO, TRISTEN Ot Z88.1 ALLERGY STATUS TO OTHER ANTIBIOTIC AGENT 01/01/2019 LANDRY DO, TRISTEN Ot Z88.2 ALLERGY STATUS TO SULFONAMIDES STATUS 01/01/2019 LANDRY DO, TRISTEN Ot Z88.5 ALLERGY STATUS TO NARCOTIC AGENT STATUS 01/01/2019 SKIDMORE DO, TRISTEN Ot Z88.8 ALLERGY STATUS TO OTH DRUG/MEDS/BIOL SUB 01/01/2019 SKIDMORE DO, TRISTEN Ot Z90.710 ACQUIRED ABSENCE OF BOTH CERVIX AND UTER 01/02/2019 RAINA RESENDIZ, WENCESLAO Medina Ot M54.41 LUMBAGO WITH SCIATICA, RIGHT SIDE 01/07/2019 LANDRY DO, TRISTEN Ot F41.9 ANXIETY DISORDER, UNSPECIFIED 01/07/2019 LANDRY DO, TRISTEN Ot G43.909 MIGRAINE, UNSP, NOT INTRACTABLE, WITHOUT 01/07/2019 LANDRY DO, TRISTEN Ot R51 HEADACHE 01/07/2019 SKIDMORE DO, TRISTEN Ot Z88.1 ALLERGY STATUS TO OTHER ANTIBIOTIC AGENT 01/07/2019 LANDRY DO, TRISTEN Ot Z88.2 ALLERGY STATUS TO SULFONAMIDES STATUS 01/07/2019 LANDRY DO, TRISTEN Ot Z88.5 ALLERGY STATUS TO NARCOTIC AGENT STATUS 01/07/2019 LANDRY DO, TRISTEN Ot Z88.8 ALLERGY STATUS TO OTH DRUG/MEDS/BIOL SUB 01/07/2019 SKIDMORE DO, TRISTEN Ot Z90.710 ACQUIRED ABSENCE OF BOTH CERVIX [...] Status Pt. Type Provider Facility Loc./Unit Complaint [id number] 01/28/2019 16:40:00 ACT Outpatient WENCESLAO PARIS [facility] [id number] 12/12/2018 14:15:00 Document Registration [id number] 11/07/2018 17:20:00 Document Registration [id number] 10/12/2018 16:20:00 Document Registration [id number] 06/23/2018 04:07:00 ACT Unknown [facility] NSER HEADACHE [id number] 06/22/2018 22:07:00 ACT Unknown [facility] NSER HEADACHE [id number] 03/24/2018 19:16:00 [facility] [id number] 01/09/2017 18:47:00 ACT Unknown REDD GASTELUM [facility] NSER HEADACHE [id number] 01/07/2017 21:26:00 [facility] [id number] 06/24/2016 20:12:00 ACT Unknown LEIDA AKHTRA SIRISHA [facility] NSER HEADACHE [id number] 06/26/2015 20:27:00 ACT Unknown MARIO ALBERTOJC [id number] 01/01/2019 10:21:00 01/01/2019 11:30:00 DIS Emergency TRISTEN LANDRY DO [facility] ER FS HEADACHE [id number] 12/23/2018 18:47:00 12/23/2018 20:51:00 DIS Emergency VERONICA LORA DO [facility] ER FS MIGRAINE [id number] 2018 15:36:00 2018 16:30:00 DIS Emergency KATIA LIRIANO DO [facility] ER FS MIGRAINE;NAUSEA;VOMITING [id number] 10/31/2018 16:57:00 10/31/2018 18:30:00 DIS Emergency JAXSON ANDERSON MD [facility] ER FS HEADACHE [id number] 10/24/2018 15:25:00 10/24/2018 23:59:59 CLS Outpatient RAINA RESENDIZ, WENCESLAO Medina [facility] RAD FS M54.41 [id number] 08/22/2018 09:55:00 08/22/2018 12:18:00 DIS Emergency SABINA DOUGHERTY MD [facility] ER FS HEADACHE [id number] 08/21/2018 21:49:00 08/22/2018 00:46:00 DIS Emergency JOEL ELLIOTT DO [facility] ER FS MIGRAINE, NAUSEA, SENSITIVE TO LIGHT AND SMELLS
== END 2019-01-30 13:44 | disposition home or self-care (01) ==
LOC: EDUNIT# 11:33 → ER FS 11:34
DX: G43.019 Migraine without aura, intractable, without status migrainosus (principal); F41.9 Anxiety disorder, unspecified; N39.0 Urinary tract infection, site not specified; Z88.1 Allergy status to other antibiotic agents; Z88.8 Allergy status to other drugs, medicaments and biological substances; Z88.5 Allergy status to narcotic agent; Z88.2 Allergy status to sulfonamides; Z90.710 Acquired absence of both cervix and uterus
CPT/HCPCS: 99284

== ENCOUNTER 2019-03-14 16:52 | Emergency (ER) | payer MEDICARE, OTHER | END 2019-03-14 17:38 | disposition home or self-care (01) | LOC: ER FS 16:52 ==

== ENCOUNTER 2019-03-19 01:51 | Emergency (ER) | payer MEDICARE, OTHER ==
[~2019-03-19] VITALS: Ht 170.1 cm; Wt 69.0 kg
--- NOTE | 2019-03-19 02:35 | ED Headache ---
General Chief Complaint: Head/Cervical Problems Stated Complaint: SEVERE MIGRAINE Nursing Triage Note: PT. REPORTED THIS MIGRAINE STARTED LAST SUNDAY AND SHE CAME TO THE ER THEN, WENT TO URGENT CARE ON SUNDAY, SAW DOCTOR RAINA ON SUNDAY AND WAS INFORMED SHE HAD A SINUS INFECTION WAS PLACED ON ANTIBIOTICS, WENT TO URGENT CARE YESTERDAY AFTERNOON AND WAS GIVEN NORFLEX, TORADOL, PHENERGAN AND BENADRYL BUT HAS NOT BEEN ABLE TO GET RID OF THE MIGRAINE. SHE C/O FEELING DIZZY AND HAVING PROBLEMS FOCUSING. PT. WEARING SUN GLASSES. Nursing Sepsis Screen: No Definite Risk Source: patient History of Present Illness Date Seen by Provider: Mar 19, 2019 Time Seen by Provider: 02:34 Initial Comments 38-year-old female presenting with complaints of recurrent migraine headache and feeling dizzy and lightheaded. She feels like she is dehydrated and needs IV fluids. She has been seen in the ER, clinic, urgent care. She returns tonight to the ER after being seen in urgent care earlier in the day. She feels like the medicine was not working and that she might need IV fluids. However she knows that she is a very hard stick and becomes more anxious when trying to get an IV. She is taking antibiotics for sinus infection and states that that is making her stomach upset as well which was causing more nausea and vomiting as well. She is due for Botox for medication from her neurologist but not until the end of March. She states that the Botox injections were also making her sick. She states that she was frustrated due to the medicines for her headaches were not working anymore. Allergies and Home Medications Allergies Coded Allergies: Sulfa (Sulfonamide Antibiotics) (Verified Allergy, Mild, Itching, 03/14/19) cefuroxime (Verified Allergy, Unknown, 08/21/18) haloperidol (Verified Allergy, Unknown, 10/31/18) magnesium (Verified Allergy, Unknown, 08/21/18) prochlorperazine (Verified Allergy, Unknown, rash, 08/21/18) topiramate (Verified Allergy, Unknown, 08/21/18) tramadol (Verified Allergy, Unknown, 10/31/18) Uncoded Allergies: DHE (Allergy, Unknown, 10/31/18) Home Medications Cyclobenzaprine HCl 10 Mg Tablet, 10 MG PO Q8H PRN for SPASMS Prescribed by: JAXSON ANDERSON on 10/31/18 1810 Patient Home Medication List Home Medication List Reviewed: Yes Review of Systems Review of Systems Constitutional: No chills; fever (on Sunday and Sunday she had fever.) Eyes: Photophobia Ears, Nose, Mouth, Throat: denies ear discharge; nose discharge; denies ep istaxis, denies throat swelling Respiratory: No cough, No short of breath Cardiovascular: No chest pain; palpitations (feeling like her heart is racing at times) Gastrointestinal: nausea, vomiting Genitourinary: no symptoms reported Musculoskeletal: neck pain (chronic pain at the base of her skull where she gets her migraine headaches) Skin: no symptoms reported Psychiatric/Neurological: Anxiety (chronic), Headache (chronic) Past Ofcvrxc-Npjyje-Uuapel Hx Past Med/Social Hx: Reviewed Nursing Past Med/Soc Hx Patient Social History 2nd Hand Smoke Exposure: No Recent Foreign Travel: No Contact w/Someone Who Travel: No Recent Infectious Disease Expo: No Recent Hopitalizations: No Physical Abuse: No Sexual Abuse: No Mistreated: No Fear: No Seasonal Allergies Seasonal Allergies: No Past Medical History Surgeries: Yes 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 Respiratory: No Cardiac: No Neurological: Yes 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 oz. 70.520216kx; 23.00 BMI Method:Stated General Appearance: WD/WN, other (anxious) HEENT: PERRL/EOMI, TMs normal (clear without erythema but fluid present behind both TMs), pharynx normal Neck: full range of motion, supple, normal inspection Cardiovascular: normal peripheral pulses, regular rate, rhythm Respiratory: chest non-tender, lungs clear, normal breath sounds, no respiratory distress, no accessory muscle use Gastrointestinal: normal bowel sounds, soft, no pulsatile mass Extremities: normal range of motion, normal capillary refill Psychiatric: alert, oriented x 3, depressed affect Crainal Nerves: normal hearing, normal speech, PERRL Coordination/Gait: normal gait Skin: normal color, warm/dry Progress/Results/Core Measures Results/Orders My Orders Orders - SUSANA LOPEZ MD Iv/Invasive Line Insertion .IV start (03/19/19 03:07) Lorazepam Injection (Ativan Injection) (03/19/19 03:17) Ketorolac Injection (Toradol Injection) (03/19/19 03:17) Diphenhydramine Injection (Benadryl Inje (03/19/19 03:17) Promethazine Injection (Phenergan Injec (03/19/19 03:17) Ketorolac Injection (Toradol Injection) (03/19/19 03:45) Medications Given in ED Current Medications Medications Dose Ordered Sig/Shell Route Start Time Stop Time Status Last Admin Dose Admin Ketorolac Tromethamine 30 mg ONCE ONCE IM 03/19/19 03:45 03/19/19 03:46 DC 03/19/19 03:46 30 MG Vital Signs/I&O 03/19/19 03/19/19 01:54 03:47 Temp 36.6 36.6 Pulse 78 78 Resp 16 16 B/P (MAP) 127/76 (93) 127/76 (93) Pulse Ox 99 99 O2 Delivery Room Air Room Air Blood Pressure Mean: 93 Progress Progress Note : Progress Note She requested that the nurses try for an IV access. However after attempted IV access and the nurses they were unsuccessful. She then requested something for anxiety. Ativan in addition to the Benadryl, Toradol, Phenergan were administered by IM injections. Discharge papers written presented to the patient could go home and try and rest. Counseled to follow up with her neurologist and primary provider Departure Impression Primary Impression: Headache, migraine, intractable Qualified Codes: G43.911 - Migraine, unspecified, intractable, with status migrainosus Additional Impression: Sinus headache Disposition: HOME, SELF-CARE Condition: Stable Departure-Patient Inst. Decision time for Depature: 03:20 Referrals: WENCESLAO PARIS MD (PCP/Family) Primary Care Physician Patient Instructions: Migraine Headache (DC) Add. Discharge Instructions: Continue on your medicines as prescribed. Rest in cool dark room. Continue to sip on fluids and check with your regular providers for continued problems/concerns All discharge instructions reviewed with patient and/or family. Voiced understanding. SUSANA LOPEZ MD Mar 19, 2019 02:34
--- NOTE | 2019-03-19 03:11 | NUR ---
WHILE ATTEMPTING TO START THE IV THE PT STATED THAT HER ARMS AND LEGS AND FACE FEEL NUMB THAT SHE WAS HAVING AN ANXIETY ATTACK, ATTEMPTING TO BREATH SLOWER. PT. HYPERVENTILATING. PT. REQUESTING ATIVAN.
[2019-03-19] MEDS ORDERED: PROMETHAZINE INJ 25 MG/ML (PHENERGAN) AMP IM STA (03:17)
[2019-03-19] MEDS ORDERED: KETOROLAC 30 MG/ML VIAL IM STA (03:17)
[2019-03-19] MEDS ORDERED: LORazepam INJ 2 MG/ML (ATIVAN) VIAL IM STA (03:17)
[2019-03-19] MEDS ORDERED: diphenhydrAMINE 50 MG/ML INJ (BENADRYL) IM STA (03:17)
[2019-03-19] MEDS ORDERED: KETOROLAC 30 MG/ML VIAL IM ONE (03:45)
[2019-03-19 03:47] VITALS: BP 127/76
== END 2019-03-19 03:48 | disposition home or self-care (01) ==
LOC: EDUNIT# 01:51 → ER FS 01:52
DX: G43.911 Migraine, unspecified, intractable, with status migrainosus (principal); F41.9 Anxiety disorder, unspecified; Z88.2 Allergy status to sulfonamides; Z88.5 Allergy status to narcotic agent; Z88.8 Allergy status to other drugs, medicaments and biological substances; Z88.1 Allergy status to other antibiotic agents; Z90.710 Acquired absence of both cervix and uterus

== ENCOUNTER 2019-04-08 00:33 | Emergency (ER) | payer MEDICARE, OTHER ==
[~2019-04-08] VITALS: Ht 170 cm; Wt 68.0 kg
[2019-04-08] MEDS ORDERED: diphenhydrAMINE 50 MG/ML INJ (BENADRYL) IM ONE (01:00)
[2019-04-08] MEDS ORDERED: PROMETHAZINE INJ 25 MG/ML (PHENERGAN) AMP IM ONE (01:00)
[2019-04-08] MEDS ORDERED: KETOROLAC 60 MG/2 ML VIAL IM ONE (01:00)
--- NOTE | 2019-04-08 01:02 | ED Head Injury ---
General Chief Complaint: Head/Cervical Problems Stated Complaint: MIGRAINE Nursing Triage Note: PT AMBULATE TO [facility] WITH C/O MIGRAIN STARTING YESTERDAY. PT STATES THESE ARE CHRONIC AND IS BEING BY PCP AND DEMARCO. PT WAS PRESCRIBED A ONCE A MONTH SHOT BUT CANNOT AFFORD THESE. PT STATES SHE IS OUT OF BENEDRYL AND HAS TAKEN PHENERGEN AND TYLENOL WITHOUT RELIEF. Source: patient Exam Limitations: no limitations History of Present Illness Date Seen by Provider: Apr 08, 2019 Time Seen by Provider: 01:00 Initial Comments typical migraine urena since yesterday. r sided, throbbing + n/v. no relief with home meds. no trauma Allergies and Home Medications Allergies Coded Allergies: Sulfa (Sulfonamide Antibiotics) (Verified Allergy, Mild, Itching, 03/14/19) cefuroxime (Verified Allergy, Unknown, 08/21/18) haloperidol (Verified Allergy, Unknown, 10/31/18) magnesium (Verified Allergy, Unknown, 08/21/18) prochlorperazine (Verified Allergy, Unknown, rash, 08/21/18) topiramate (Verified Allergy, Unknown, 08/21/18) tramadol (Verified Allergy, Unknown, 10/31/18) Uncoded Allergies: DHE (Allergy, Unknown, 10/31/18) Home Medications Cyclobenzaprine HCl 10 Mg Tablet, 10 MG PO Q8H PRN for SPASMS Prescribed by: JAXSON ANDERSON on 10/31/18 1810 Patient Home Medication List Home Medication List Reviewed: Yes Review of Systems Review of Systems Constitutional: no symptoms reported Eyes: Photophobia Ears, Nose, Mouth, Throat: no symptoms reported Respiratory: no symptoms reported Cardiovascular: no symptoms reported Gastrointestinal: nausea, vomiting Musculoskeletal: no symptoms reported Psychiatric/Neurological: Headache All Other Systems Reviewed Negative Unless Noted: Yes Past Acgfyda-Cjrxbk-Fdwvlx Hx Patient Social History Alcohol Use: Rarely Uses Recreational Drug Use: No Smoking Status: Never a Smoker 2nd Hand Smoke Exposure: No Recent Foreign Travel: No Contact w/Someone Who Travel: No Recent Infectious Disease Expo: No Recent Hopitalizations: No Physical Abuse: No Sexual Abuse: No Mistreated: No Fear: No Seasonal Allergies Seasonal Allergies: No Past Medical History Surgeries: Yes 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 Respiratory: No Cardiac: No Neurological: Yes 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 oz. 70.395546ol; 23.00 BMI Method:Stated General Appearance: WD/WN, mild distress HEENT: PERRL/EOMI, pharynx normal Neck: supple Cardiovascular: regular rate, rhythm, no edema Respiratory: lungs clear, normal breath sounds Gastrointestinal: non tender, soft Extremities: non-tender, normal inspection Psychiatric: alert, oriented x 3 Crainal Nerves: normal hearing, normal speech Coordination/Gait: normal gait Motor/Sensory: no motor deficit, no sensory deficit Skin: normal color, warm/dry [place] Coma Score Best Eye Response: (4) Open Spontaneously Best Verbal Response: (5) Oriented Best Motor Response: (6) Obeys Commands Progress/Results/Core Measures Results/Orders My Orders Orders - NEMO GALINDO MD Ketorolac Injection (Toradol Injection) (04/08/19 01:00) Diphenhydramine Injection (Benadryl Inje (04/08/19 01:00) Promethazine Injection (Phenergan Injec (04/08/19 01:00) Medications Given in ED Current Medications Medications Dose Ordered Sig/Shell Route Start Time Stop Time Status Last Admin Dose Admin Diphenhydramine HCl 50 mg ONCE ONCE IM 04/08/19 01:00 04/08/19 01:01 DC 04/08/19 01:10 50 MG Ketorolac Tromethamine 60 mg ONCE ONCE IM 04/08/19 01:00 04/08/19 01:01 DC 04/08/19 01:11 60 MG Promethazine HCl 50 mg ONCE ONCE IM 04/08/19 01:00 04/08/19 01:01 DC 04/08/19 01:10 50 MG Vital Signs/I&O 04/08/19 04/08/19 00:43 01:59 Temp 36.8 Pulse 96 78 Resp 18 18 B/P (MAP) 140/81 (100) 135/75 Pulse Ox 100 100 O2 Delivery Room Air Room Air Blood Pressure Mean: 100 Departure Impression Primary Impression: Headache Disposition: 01 HOME, SELF-CARE Condition: Stable Departure-Patient Inst. Decision time for Depature: 01:01 Referrals: WENCESLAO PARIS MD (PCP/Family) Primary Care Physician Patient Instructions: Migraine Headache (DC) Add. Discharge Instructions: Continue regular medicines. Rest in quiet dark room today. All discharge instructions reviewed with patient and/or family. Voiced understanding. NEMO GALINDO MD Apr 08, 2019 01:02
[2019-04-08 01:59] VITALS: BP 135/75
== END 2019-04-08 01:59 | disposition home or self-care (01) ==
LOC: EDUNIT# 00:33 → ER FS 00:35
DX: R51 Headache (principal); F41.9 Anxiety disorder, unspecified; Z86.69 Personal history of other diseases of the nervous system and sense organs; Z90.710 Acquired absence of both cervix and uterus; Z88.2 Allergy status to sulfonamides; Z88.1 Allergy status to other antibiotic agents; Z88.5 Allergy status to narcotic agent; Z88.8 Allergy status to other drugs, medicaments and biological substances
CPT/HCPCS: 99284

== ENCOUNTER 2019-04-12 03:12 | Emergency (ER) | payer MEDICARE, OTHER ==
[~2019-04-12] VITALS: Ht 170.1 cm; Wt 68.0 kg
[2019-04-12] MEDS ORDERED: KETOROLAC 60 MG/2 ML VIAL IM STA (03:30)
[2019-04-12] MEDS ORDERED: diphenhydrAMINE 50 MG/ML INJ (BENADRYL) IM STA ×2 (03:30→03:41)
[2019-04-12] MEDS ORDERED: PROMETHAZINE INJ 25 MG/ML (PHENERGAN) AMP IVP STA (03:30)
--- NOTE | 2019-04-12 03:34 | ED Headache ---
General Chief Complaint: Head/Cervical Problems Stated Complaint: MIGRAINE SYMPTOMS Source: patient History of Present Illness Date Seen by Provider: Apr 12, 2019 Time Seen by Provider: 03:16 Initial Comments 38 yo F presenting with recurrent Migraine headache. She has had this headache since Apr 08. She has been seen in clinic and ED for it. She is on antibiotics currently for sinus and eye infection. She has had vomiting at home x 1. She has nausea, photophobia, phonophobia. This feels like her typical migraine headache for her but it has moved from the left side to the right side. Allergies and Home Medications Allergies Coded Allergies: Sulfa (Sulfonamide Antibiotics) (Verified Allergy, Mild, Itching, 03/14/19) cefuroxime (Verified Allergy, Unknown, 08/21/18) haloperidol (Verified Allergy, Unknown, 10/31/18) magnesium (Verified Allergy, Unknown, 08/21/18) prochlorperazine (Verified Allergy, Unknown, rash, 08/21/18) topiramate (Verified Allergy, Unknown, 08/21/18) tramadol (Verified Allergy, Unknown, 10/31/18) Uncoded Allergies: DHE (Allergy, Unknown, 10/31/18) Home Medications Cyclobenzaprine HCl 10 Mg Tablet, 10 MG PO Q8H PRN for SPASMS Prescribed by: JAXSON ANDERSON on 10/31/18 1810 Patient Home Medication List Home Medication List Reviewed: Yes Review of Systems Review of Systems Constitutional: No chills, No fever Eyes: Drainage, Photophobia Ears, Nose, Mouth, Throat: denies ear discharge, denies nose discharge Respiratory: no symptoms reported Cardiovascular: no symptoms reported Gastrointestinal: nausea, vomiting Genitourinary: frequency Musculoskeletal: no symptoms reported Skin: no symptoms reported Past Sghiunx-Zraurf-Wesurd Hx Past Med/Social Hx: Reviewed Nursing Past Med/Soc Hx Patient Social History 2nd Hand Smoke Exposure: No Recent Foreign Travel: No Contact w/Someone Who Travel: No Recent Hopitalizations: No Seasonal Allergies Seasonal Allergies: No Past Medical History Surgeries: Yes 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 Respiratory: No Cardiac: No Neurological: Yes 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 oz. 70.795814fg; 23.00 BMI Method:Stated General Appearance: WD/WN, mild distress HEENT: PERRL/EOMI, pharynx normal Neck: non-tender, full range of motion, supple, normal inspection Cardiovascular: normal peripheral pulses, regular rate, rhythm Respiratory: chest non-tender, lungs clear, normal breath sounds, no respiratory distress, no accessory muscle use Gastrointestinal: normal bowel sounds, non tender, soft Psychiatric: alert, oriented x 3 Crainal Nerves: normal hearing, normal speech, PERRL Coordination/Gait: normal gait Motor/Sensory: no motor deficit, no sensory deficit Skin: normal color, warm/dry Progress/Results/Core Measures Results/Orders My Orders Orders - SUSANA LOPEZ MD Ketorolac Injection (Toradol Injection) (04/12/19 03:30) Diphenhydramine Injection (Benadryl Inje (04/12/19 03:41) Promethazine Injection (Phenergan Injec (04/12/19 03:41) Vital Signs/I&O 04/12/19 03:25 Temp 36.6 Pulse 80 Resp 18 B/P (MAP) 125/69 (87) O2 Delivery Room Air Progress Progress Note : Progress Note Treat with Toradol 60 mg IM, Benadryl 50 mg IM and Phenergan 25 mg IM for her headache. Have her continue to sip on fluids. Rest in cool dark room. Continue on home medicines. Departure Impression Primary Impression: Migraine Qualified Codes: G43.911 - Migraine, unspecified, intractable, with status migrainosus Disposition: HOME, SELF-CARE Condition: Stable Departure-Patient Inst. Decision time for Depature: 03:33 Referrals: WENCESLAO PARIS MD (PCP/Family) Primary Care Physician Patient Instructions: Migraine Headache (DC) Add. Discharge Instructions: Continue on your medicine as prescribed. Follow up with clinic for continued pr oblems/concerns All discharge instructions reviewed with patient and/or family. Voiced understanding. SUASNA LOPEZ MD Apr 12, 2019 03:34
[2019-04-12] MEDS ORDERED: PROMETHAZINE INJ 25 MG/ML (PHENERGAN) AMP IM STA (03:41)
[2019-04-12 03:51] VITALS: BP 125/69
--- OUTSIDE RECORDS SUMMARY | 2019-05-05 12:58 | XMS REPORT | Continuity of Care Document ---
Author Organization Unknown POS Address Unknown SP Phone Unavailable SP Allergies Active Description Code Type Severity POS Reaction Onset Reported/Identified POS to Patient Clinical Status POS Yes Sulfa (Sulfonamides) 491 Unknown SP N/A 06/24/2016 SP Yes Ceftin 3716 Unknown N/A SP 03/24/2018 SP Yes Compazine 3622 Unknown SP 03/24/2018 SP Yes Magnesium 784 Unknown SP 03/24/2018 SP Yes Topamax 81506 Unknown SP 03/24/2018 SP Yes SULFA SULFA Mild itchy SP 08/21/2018 SP Yes cefuroxime [id number] Drug Allerg y SP N/A 08/21/2018 SP Yes magnesium [id number] Drug Allergy SP N/A 08/21/2018 SP Yes No Known Drug Allergies [id number] Drug SP Unknown N/A 08/21/2018 SP SP Yes prochlorperazine [id number] Drug Allergy SP Unknown rash 08/21/2018 SP SP Yes topiramate [id number] Drug Allerg y SP N/A 08/21/2018 SP Yes DHE DHE Unknown N/A SP 10/31/2018 SP Yes haloperidol [id number] Drug Aller gy SP N/A 10/31/2018 SP Yes tramadol [id number] Drug Allergy SP N/A 10/31/2018 SP Yes Sulfa (Sulfonamide Antibiotics) [id number] SP Allergy Mild Itching 9 SP SP Medications There is no data. Problems Date Dx Coded Attending Type Code POS Diagnosed By POS 07/30/2015 JC LLANES 346.90 SP UNSPECIFIED, WITHOUT MENTION OF INTRACTABLE MIGRAINE WITHOUT MENTION O SP 07/30/2015 JC LLANES G43.909 SP UNSPECIFIED, NOT INTRACTABLE, WITHOUT STATUS MIGRAINOSUS SP 07/13/2016 LEIDA AKHTAR S E03. 9 SP UNSPECIFIED SP 07/13/2016 VONADA, LEIDA SIRISHA P G43. 009 SP WITHOUT AURA, NOT INTRACTABLE, WITHOUT STATUS MIGRAINOSUS SP 01/26/2017 REDD GASTELUM P G43.90 9 SP UNSPECIFIED, NOT INTRACTABLE, WITHOUT STATUS MIGRAINOSUS SP 01/26/2017 Alma Rosa ADEN P G43.009 SP WITHOUT AURA, NOT INTRACTABLE, WITHOUT STATUS MIGRAINOSUS SP 07[facility].809 SP OTHER MIGRAINE, NOT INTRACTABLE, WITHOUT STATUS MIGRAI NOSUS SP [facility] HEAD[facility]HE SP 08/22/2018 ASHLEY ELLIOTT DOED T Ot R11. 2 SP WITH VOMITING, UNSPECIFIED SP 08/22/2018 ASHLEY ELLIOTT DOED T Ot R51 SP SP 08/22/2018 ASHLEY ELLIOTT DOED T Ot Z88. 2 SP STATUS TO SULFONAMIDES STATUS SP 08/22/2018 ASHLEY ELLIOTT DOED T Ot Z88. 8 SP STATUS TO OTH DRUG/MEDS/BIOL SUB SP 08/22/2018 SABINA DOUGHERTY MD Ot E86.0 SP SP 08/22/2018 SABINA DOUGHERTY MD Ot F41.9 SP DISORDER, UNSPECIFIED SP 08/22/2018 SABINA DOUGHERTY MD Ot G43.909 SP UNSP, NOT INTRACTABLE, WITHOUT SP 08/22/2018 FARHAT RESENDIZ, SABINA Purdy Ot Z87.891 SP HISTORY OF NICOTINE DEPENDENCE SP 08/22/2018 SABINA DOUGHERTY MD Ot Z88.2 SP STATUS TO SULFONAMIDES STATUS SP 08/22/2018 SABINA DOUGHERTY MD Ot Z88.8 SP STATUS TO OTH DRUG/MEDS/BIOL SUB SP 08/22/2018 SABINA DOUGHERTY MD Ot Z90.710 SP ABSENCE OF BOTH CERVIX AND UTER SP 08/23/2018 EARL ARAGON JOEL T Ot R11. 2 SP WITH VOMITING, UNSPECIFIED SP 08/23/2018 EARL ARAGON JOEL T Ot R51 SP SP 08/23/2018 ASHLEY ELLIOTT DOED T Ot Z88. 2 SP STATUS TO SULFONAMIDES STATUS SP 08/23/2018 ASHLEY ELLIOTT DOED T Ot Z88. 8 SP STATUS TO OTH DRUG/MEDS/BIOL SUB SP 08/23/2018 SABINA DOUGHERTY MD Ot E86.0 SP SP 08/23/2018 SABINA DOUGHERTY MD Ot F41.9 SP DISORDER, UNSPECIFIED SP 08/23/2018 SABINA DOUGHERTY MD Ot G43.909 SP UNSP, NOT INTRACTABLE, WITHOUT SP 08/23/2018 SABINA DOUGHERTY MD Ot Z87.891 SP HISTORY OF NICOTINE DEPENDENCE SP 08/23/2018 SABINA DOUGHERTY MD Ot Z88.2 SP STATUS TO SULFONAMIDES STATUS SP 08/23/2018 SABINA DOUGHERTY MD Ot Z88.8 SP STATUS TO OTH DRUG/MEDS/BIOL SUB SP 08/23/2018 SABINA DOUGHERTY MD Ot Z90.710 SP ABSENCE OF BOTH CERVIX AND UTER SP 09/09/2018 TRUNG WIGGINS L P G43.9 09 SP UNSPECIFIED, NOT INTRACTABLE, WITHOUT STATUS MIGRAINOSUS SP 09/09/2018 TRUNG WIGGINS L P G43.9 09 SP UNSPECIFIED, NOT INTRACTABLE, WITHOUT STATUS MIGRAINOSUS SP 09/09/2018 TRUNG WIGGINS L S R11.2 SP WITH VOMITING, UNSPECIFIED SP 10/31/2018 JUSTIN RESENDIZ, JAXSON Mejia Ot F41. 9 SP DISORDER, UNSPECIFIED SP 10/31/2018 JUSTIN RESENDIZ, JAXSON J Ot G43.909 SP MIGRAINE, UNSP, NOT INTRACTABLE, WITHOUT SP 10/31/2018 JAXSON ANDERSON MD J Ot R51 SP SP 10/31/2018 JAXSON ANDERSON MD Ot Z88. 2 SP STATUS TO SULFONAMIDES STATUS SP 10/31/2018 JAXSON ANDERSON MD Ot Z88. 6 SP STATUS TO ANALGESIC AGENT STATUS SP 10/31/2018 JAXSON ANDERSON MD Ot Z88. 8 SP STATUS TO OTH DRUG/MEDS/BIOL SUB SP 10/31/2018 JUSTIN RESENDIZ, JAXSON J Ot Z90.710 SP ACQUIRED ABSENCE OF BOTH CERVIX AND UTER SP 11/04/2018 JAXSON ANDERSON MD Ot F41. 9 SP DISORDER, UNSPECIFIED SP 11/04/2018 JAXSON ANDERSON MD J Ot G43.909 SP MIGRAINE, UNSP, NOT INTRACTABLE, WITHOUT SP 11/04/2018 SOFIYA ANDERSON MDUS J Ot R51 SP SP 11/04/2018 JAXSON ANDERSON MD J Ot Z88. 2 SP STATUS TO SULFONAMIDES STATUS SP 11/04/2018 JAXSON ANDERSON MD J Ot Z88. 6 SP STATUS TO ANALGESIC AGENT STATUS SP 11/04/2018 JUSTIN RESENDIZ, JAXSON Mejia Ot Z88. 8 SP STATUS TO OTH DRUG/MEDS/BIOL SUB SP 11/04/2018 JUSTIN RESENDIZ, JAXSON Mejia Ot Z90.710 SP ACQUIRED ABSENCE OF BOTH CERVIX AND UTER SP 11/14/2018 RAINA RESENDIZ, WENCESLAO Medina Ot M54.41 SP LUMBAGO WITH SCIATICA, RIGHT SIDE SP 2018 KATIA LIRIANO DO Ot F41.9 SP ANXIETY DISORDER, UNSPECIFIED SP 2018 KATIA LIRIANO DO Ot G43.909 SP MIGRAINE, UNSP, NOT INTRACTABLE, WITHOUT SP 2018 KATIA LIRIANO DO Ot R5 1 SP SP 2018 KATIA LIRIANO DO Ot Z88.2 SP ALLERGY STATUS TO SULFONAMIDES STATUS SP 2018 KATIA LIRIANO DO Ot Z88.5 SP ALLERGY STATUS TO NARCOTIC AGENT STATUS SP 2018 KATIA LIRIANO DO Ot Z88.8 SP ALLERGY STATUS TO OTH DRUG/MEDS/BIOL SUB SP 2018 KATIA LIRIANO DO Ot Z90.710 SP ACQUIRED ABSENCE OF BOTH CERVIX AND UTER SP 12/23/2018 VERONICA LORA DO Ot F41 .9 SP DISORDER, UNSPECIFIED SP 12/23/2018 VERONICA LORA DO Ot G43.909 SP MIGRAINE, UNSP, NOT INTRACTABLE, WITHOUT SP 12/23/2018 VERONICA LORA DO Ot Z88 .1 SP STATUS TO OTHER ANTIBIOTIC AGENT SP 12/23/2018 VERONICA LORA DO Ot Z88 .2 SP STATUS TO SULFONAMIDES STATUS SP 12/23/2018 VERONICA LORA DO Ot Z88 .5 SP STATUS TO NARCOTIC AGENT STATUS SP 12/23/2018 VERONICA LORA DO Ot Z88 .8 SP STATUS TO OTH DRUG/MEDS/BIOL SUB SP 12/23/2018 VERONICA LORA DO Ot Z90.710 SP ACQUIRED ABSENCE OF BOTH CERVIX AND UTER SP 12/24/2018 KATIA LIRIANO DO Ot F41.9 SP ANXIETY DISORDER, UNSPECIFIED SP 12/24/2018 KATIA LIRIANO DO Ot G43.909 SP MIGRAINE, UNSP, NOT INTRACTABLE, WITHOUT SP 12/24/2018 KATIA LIRIANO DO Ot R5 1 SP SP 12/24/2018 KATIA LIRIANO DO Ot Z88.2 SP ALLERGY STATUS TO SULFONAMIDES STATUS SP 12/24/2018 KATIA LIRIANO DO Ot Z88.5 SP ALLERGY STATUS TO NARCOTIC AGENT STATUS SP 12/24/2018 KATIA LIRIANO DO Ot Z88.8 SP ALLERGY STATUS TO OTH DRUG/MEDS/BIOL SUB SP 12/24/2018 KATIA LIRIANO DO Ot Z90.710 SP ACQUIRED ABSENCE OF BOTH CERVIX AND UTER SP 12/25/2018 VERONICA LORA DO Ot F41 .9 SP DISORDER, UNSPECIFIED SP 12/25/2018 VERONICA LORA DO Ot G43.909 SP MIGRAINE, UNSP, NOT INTRACTABLE, WITHOUT SP 12/25/2018 VERONICA LORA DO Ot Z88 .1 SP STATUS TO OTHER ANTIBIOTIC AGENT SP 12/25/2018 VERONICA LORA DO Ot Z88 .2 SP STATUS TO SULFONAMIDES STATUS SP 12/25/2018 VERONICA LORA DO Ot Z88 .5 SP STATUS TO NARCOTIC AGENT STATUS SP 12/25/2018 VERONICA LORA DO Ot Z88 .8 SP STATUS TO OTH DRUG/MEDS/BIOL SUB SP 12/25/2018 VERONICA LORA DO Ot Z90.710 SP ACQUIRED ABSENCE OF BOTH CERVIX AND UTER SP 01/01/2019 TRISTEN LANDRY DO Ot F41.9 SP DISORDER, UNSPECIFIED SP 01/01/2019 TRISTEN LANDRY DO Ot G43.909 SP UNSP, NOT INTRACTABLE, WITHOUT SP 01/01/2019 TRISTEN LANDRY DO Ot R51 HEADACHE SP SP 01/01/2019 TRISTEN LANDRY DO Ot Z88.1 SP STATUS TO OTHER ANTIBIOTIC AGENT SP 01/01/2019 FRANTZ ARAGON TRISTEN Ot Z88.2 SP STATUS TO SULFONAMIDES STATUS SP 01/01/2019 FRANTZ ARAGON TRISTEN Ot Z88.5 SP STATUS TO NARCOTIC AGENT STATUS SP 01/01/2019 FRANTZ ARAGON TRISTEN Ot Z88.8 SP STATUS TO OTH DRUG/MEDS/BIOL SUB SP 01/01/2019 FRANTZ ARAGON, TRISTEN Ot Z90.710 SP ABSENCE OF BOTH CERVIX AND UTER SP 01/02/2019 RAINA RESENDIZ, WENCESLAO Medina Ot M54.41 SP LUMBAGO WITH SCIATICA, RIGHT SIDE SP 01/07/2019 TRISTEN LANDRY DO Ot F41.9 SP DISORDER, UNSPECIFIED SP 01/07/2019 [place] DO, TRISTEN Ot G43.909 SP UNSP, NOT INTRACTABLE, WITHOUT SP 01/07/2019 LANDRY DO, TRISTEN Ot R51 HEADACHE SP SP 01/07/2019 [place] DO, TRISTEN Ot Z88.1 SP STATUS TO OTHER ANTIBIOTIC AGENT SP 01/07/2019 LANDRY DO, TRISTEN Ot Z88.2 SP STATUS TO SULFONAMIDES STATUS SP 01/07/2019 [place] DO, TRISTEN Ot Z88.5 SP STATUS TO NARCOTIC AGENT STATUS SP 01/07/2019 [place] DO, TRISTEN Ot Z88.8 SP STATUS TO OTH DRUG/MEDS/BIOL SUB SP 01/07/2019 [place] DO, TRISTEN Ot Z90.710 SP ABSENCE OF BOTH CERVIX AND UTER SP 01/30/2019 JOHN RESENDIZ, SUSANA Ramachandran Ot F41.9 SP DISORDER, UNSPECIFIED SP 01/30/2019 JOHN RESENDIZ, SUSANA Ramachandran Ot G43.0 19 SP W/O AURA, INTRACTABLE, WITHOUT SP 01/30/2019 JOHN RESENDZI, SUSANA Ramachandran Ot N39.0 SP TRACT INFECTION, SITE NOT SPECIF SP 01/30/2019 JOHN RESENDIZ, SUSANA Ramachandran Ot R51 SP SP 01/30/2019 JOHN RESENDIZ, SUSANA Ramachandran Ot Z88.1 SP STATUS TO OTHER ANTIBIOTIC AGENT SP 01/30/2019 JOHN RESENDIZ, SUSANA Ramachandran Ot Z88.2 SP STATUS TO SULFONAMIDES STATUS SP 01/30/2019 JOHN RESENDIZ, SUSANA Ramachandran Ot Z88.5 SP STATUS TO NARCOTIC AGENT STATUS SP 01/30/2019 JOHN RESENDIZ, SUSANA Ramachandran Ot Z88.8 SP STATUS TO OTH DRUG/MEDS/BIOL SUB SP 01/30/2019 JOHN RESENDIZ, SUSANA Ramachandran Ot Z90.7 10 SP ABSENCE OF BOTH CERVIX AND UTER SP 02/03/2019 JOHN RESENDIZ, SUSANA Ramachandran Ot F41.9 SP DISORDER, UNSPECIFIED SP 02/03/2019 JOHN RESENDIZ, SUSANA Ramachandran Ot G43.0 19 SP W/O AURA, INTRACTABLE, WITHOUT SP 02/03/2019 JOHN RESENDIZ, SUSANA Ramachandran Ot N39.0 SP TRACT INFECTION, SITE NOT SPECIF SP 02/03/2019 JOHN RESENDIZ, SUSANA Ramachandran Ot R51 SP SP 02/03/2019 JOHN RESENDIZ, SUSANA Ramachandran Ot Z88.1 SP STATUS TO OTHER ANTIBIOTIC AGENT SP 02/03/2019 JOHN RESENDIZ, SUSANA Ramachandran Ot Z88.2 SP STATUS TO SULFONAMIDES STATUS SP 02/03/2019 JOHN RESENDIZ, SUSANA Ramachandran Ot Z88.5 SP STATUS TO NARCOTIC AGENT STATUS SP 02/03/2019 JOHN RESENDIZ, SUSANA Ramachandran Ot Z88.8 SP STATUS TO OTH DRUG/MEDS/BIOL SUB SP 02/03/2019 JOHN RESENDIZ, SUSANA Ramachandran Ot Z90.7 10 SP ABSENCE OF BOTH CERVIX AND UTER SP 03/14/2019 ROVENSTINE DO, HERON L Ot F41.9 SP ANXIETY DISORDER, UNSPECIFIED SP 03/14/2019 ROVENSTINE DO, HERON L Ot G43.909 SP MIGRAINE, UNSP, NOT INTRACTABLE, WITHOUT SP 03/14/2019 ROVENSTINE DO, HERON L Ot R51 SP HEADACHE SP 03/14/2019 ROVENSTINE DO, HERON L Ot Z88.1 SP ALLERGY STATUS TO OTHER ANTIBIOTIC AGENT SP 03/14/2019 ROVENSTINE DO, HERON L Ot Z88.2 SP ALLERGY STATUS TO SULFONAMIDES STATUS SP 03/14/2019 ROVENSTINE DO, HERON L Ot Z88.5 SP ALLERGY STATUS TO NARCOTIC AGENT STATUS SP 03/14/2019 ROVENSTINE DO, HERON L Ot Z88.8 SP ALLERGY STATUS TO OTH DRUG/MEDS/BIOL SUB SP 03/14/2019 ROVENSTINE DO, HERON L Ot Z90.710 SP ACQUIRED ABSENCE OF BOTH CERVIX AND UTER SP 03/18/2019 ROVENSTINE DO, HERON L Ot F41.9 SP ANXIETY DISORDER, UNSPECIFIED SP 03/18/2019 ROVENSTINE DO, HERON L Ot G43.909 SP MIGRAINE, UNSP, NOT INTRACTABLE, WITHOUT SP 03/18/2019 ROVENSTINE DO, HERON L Ot R51 SP HEADACHE SP 03/18/2019 ROVENSTINE DO, HERON L Ot Z88.1 SP ALLERGY STATUS TO OTHER ANTIBIOTIC AGENT SP 03/18/2019 ROVENSTINE DO, HERON L Ot Z88.2 SP ALLERGY STATUS TO SULFONAMIDES STATUS SP 03/18/2019 ROVENSTINE DO, HERON L Ot Z88.5 SP ALLERGY STATUS TO NARCOTIC AGENT STATUS SP 03/18/2019 ROVENSTINE DO, HERON L Ot Z88.8 SP ALLERGY STATUS TO OTH DRUG/MEDS/BIOL SUB SP 03/18/2019 MONICASTANDRA DOHERON L Ot Z90.710 SP ACQUIRED ABSENCE OF BOTH CERVIX AND UTER SP 03/21/2019 JOHN RESENDIZ, SUSANA Ramachandran Ot F41.9 SP DISORDER, UNSPECIFIED SP 03/21/2019 JOHN RESENDIZ, SUSANA Ramachandran Ot G43.9 11 SP UNSPECIFIED, INTRACTABLE, WITH SP 03/21/2019 JOHN RESENDIZ, SUSANA Ramachandran Ot R51 SP SP 03/21/2019 JOHN RESENDIZ, SUSANA Ramachandran Ot Z88.1 SP STATUS TO OTHER ANTIBIOTIC AGENT SP 03/21/2019 JOHN RESENDIZ, SUSANA E Ot Z88.2 SP STATUS TO SULFONAMIDES STATUS SP 03/21/2019 SUSANA LOPEZ MD Ot Z88.5 SP STATUS TO NARCOTIC AGENT STATUS SP 03/21/2019 JOHN RESENDIZ, SUSANA Ramachandran Ot Z88.8 SP STATUS TO OTH DRUG/MEDS/BIOL SUB SP 03/21/2019 SUSANA LOPEZ MD Ot Z90.7 10 SP ABSENCE OF BOTH CERVIX AND UTER SP 04/08/2019 JOSIE RESENDIZ, NEMO Waters Ot F41. 9 SP DISORDER, UNSPECIFIED SP 04/08/2019 JOSIE RESENDIZ, NEMO A Ot R51 SP SP 04/08/2019 JOSIE RESENDIZ, NEMO A Ot Z86. 69 SP HISTORY OF DIS OF THE NERVOUS S SP 04/08/2019 NEMO GALINDO MD A Ot Z88. 1 SP STATUS TO OTHER ANTIBIOTIC AGENT SP 04/08/2019 JOSIE RESENDIZ, NEMO A Ot Z88. 2 SP STATUS TO SULFONAMIDES STATUS SP 04/08/2019 JOSIE RESENDIZ, NEMO A Ot Z88. 5 SP STATUS TO NARCOTIC AGENT STATUS SP 04/08/2019 JOSIE RESENIDZ, NEMO A Ot Z88. 8 SP STATUS TO OTH DRUG/MEDS/BIOL SUB SP 04/08/2019 JOSIE RESENDIZ, NEMO Waters Ot Z90.710 SP ACQUIRED ABSENCE OF BOTH CERVIX AND UTER SP 04/11/2019 JOSIE RESENDIZ, NEMO Waters Ot F41. 9 SP DISORDER, UNSPECIFIED SP 04/11/2019 JOSIE RESENDIZ, NEMO A Ot R51 SP SP 04/11/2019 NEMO GALINDO MD A Ot Z86. 69 SP HISTORY OF DIS OF THE NERVOUS S SP 04/11/2019 NEMO GALINDO MD A Ot Z88. 1 SP STATUS TO OTHER ANTIBIOTIC AGENT SP 04/11/2019 JOSIE RESENDIZ, NEMO A Ot Z88. 2 SP STATUS TO SULFONAMIDES STATUS SP 04/11/2019 JOSIE RESENDIZ, NEMO A Ot Z88. 5 SP STATUS TO NARCOTIC AGENT STATUS SP 04/11/2019 JOSIE RESENDIZ, NEMO A Ot Z88. 8 SP STATUS TO OTH DRUG/MEDS/BIOL SUB SP 04/11/2019 JOSIE RESENDIZ, NEMO A Ot Z90.710 SP ACQUIRED ABSENCE OF BOTH CERVIX AND UTER SP 04/15/2019 JOHN RESENDIZ, SUSANA E Ot F41.9 SP DISORDER, UNSPECIFIED SP 04/15/2019 JOHN RESENDIZ, SUSANA E Ot G43.9 09 SP UNSP, NOT INTRACTABLE, WITHOUT SP 04/15/2019 JOHN RESENDIZ, SUSANA E Ot R51 SP SP 04/15/2019 JOHN RESENDIZ, SUSANA E Ot Z88.2 SP STATUS TO SULFONAMIDES STATUS SP 04/15/2019 JOHN RESENDIZ, SUSANA E Ot Z88.5 SP STATUS TO NARCOTIC AGENT STATUS SP 04/15/2019 JOHN RESENDIZ, SUSANA E Ot Z88.8 SP STATUS TO OTH DRUG/MEDS/BIOL SUB SP 04/15/2019 JOHN RESENDIZ, SUSANA E Ot Z90.7 10 SP ABSENCE OF BOTH CERVIX AND UTER SP 04/17/2019 JOSIE RESENDIZ, NEMO Waters Ot F41. 9 SP DISORDER, UNSPECIFIED SP 04/17/2019 JOSIE RESENDIZ, NEMO A Ot R51 SP SP 04/17/2019 JOSIE RESENDIZ, NEMO A Ot Z86. 69 SP HISTORY OF DIS OF THE NERVOUS S SP 04/17/2019 JOSIE RESENDIZ, NEMO A Ot Z88. 1 SP STATUS TO OTHER ANTIBIOTIC AGENT SP 04/17/2019 JOSIE RESENDIZ, NEMO A Ot Z88. 2 SP STATUS TO SULFONAMIDES STATUS SP 04/17/2019 JOSIE RESENDIZ, NEMO A Ot Z88. 5 SP STATUS TO NARCOTIC AGENT STATUS SP 04/17/2019 JOSIE RESENDIZ, NEMO A Ot Z88. 8 SP STATUS TO OTH DRUG/MEDS/BIOL SUB SP 04/17/2019 JOSIE RESENDIZ, NEMO A Ot Z90.710 SP ACQUIRED ABSENCE OF BOTH CERVIX AND UTER SP 04/24/2019 JOSIE RESENDIZ, NEMO Waters Ot F41. 9 SP DISORDER, UNSPECIFIED SP 04/24/2019 NEMO GALINDO MD Ot R51 SP SP 04/24/2019 NEMO GALINDO MD Ot Z86. 69 SP HISTORY OF DIS OF THE NERVOUS S SP 04/24/2019 NEMO GALINDO MD Ot Z88. 1 SP STATUS TO OTHER ANTIBIOTIC AGENT SP 04/24/2019 NEMO GALINDO MD Ot Z88. 2 SP STATUS TO SULFONAMIDES STATUS SP 04/24/2019 NEMO GALINDO MD Ot Z88. 5 SP STATUS TO NARCOTIC AGENT STATUS SP 04/24/2019 NEMO GALINDO MD Ot Z88. 8 SP STATUS TO OTH DRUG/MEDS/BIOL SUB SP 04/24/2019 NEMO GALINDO MD Ot Z90.710 SP ACQUIRED ABSENCE OF BOTH CERVIX AND UTER SP Procedures There is no data. Results Test Result Range POS CULTURE, THROAT - 10/12/18 16:56 POS CULTURE, THROAT SEE NOTE NRG SP VITAMIN D, 25-H - 11/07/18 19:01 POS VITAMIN D,25-OH,TOTAL,IA 26 ng/mL 30-10 0 SP PDM - 09 PANEL (PROFILE 1) - 12/12/18 15 :20 POS Prescribed Drug 1 Lorazepam NRG SP Creatinine 20.4 mg/dL > or=20.0 SP pH 6.64 4.5 - 9.0 SP Oxidant NEGATIVE mcg/mL <200 SP Amphetamines NEGATIVE ng/mL <500 SP medMATCH Amphetamines CONSISTENT NRG SP Benzodiazepines POSITIVE ng/mL <100 SP Marijuana Metabolite NEGATIVE ng/mL <20 SP medMATCH Marijuana Metab CONSISTENT NRG SP Cocaine Metabolite NEGATIVE ng/mL <150 SP medMATCH Cocaine Metab CONSISTENT NRG SP Opiates POSITIVE ng/mL <100 SP Oxycodone NEGATIVE ng/mL <100 SP medMATCH Oxycodone CONSISTENT NRG SP COMMENT NRG SP Alphahydroxyalprazolam NEGATIVE ng/mL <25 SP medMATCH aOH alprazolam CONSISTENT NRG SP Alphahydroxymidazolam NEGATIVE ng/mL < 50 SP medMATCH aOH midazolam CONSISTENT NRG SP Alphahydroxytriazolam NEGATIVE ng/mL < 50 SP medMATCH aOH triazolam CONSISTENT NRG SP Aminoclonazepam NEGATIVE ng/mL <25 SP medMATCH Aminoclonazepam CONSISTENT NRG SP Hydroxyethylflurazepam NEGATIVE ng/mL <50 SP medMATCH OH,Et flurazepam CONSISTENT NR G SP Lorazepam 457 ng/mL <50 SP medMATCH Lorazepam CONSISTENT NRG SP Nordiazepam NEGATIVE ng/mL <50 SP medMATCH Nordiazepam CONSISTENT NRG SP Oxazepam NEGATIVE ng/mL <50 SP medMATCH Oxazepam CONSISTENT NRG SP Temazepam NEGATIVE ng/mL <50 SP medMATCH Temazepam CONSISTENT NRG SP Codeine NEGATIVE ng/mL <50 SP medMATCH Codeine CONSISTENT NRG SP Hydrocodone 110 ng/mL <50 SP medMATCH Hydrocodone INCONSISTENT NRG SP Hydromorphone NEGATIVE ng/mL <50 SP medMATCH Hydromorphone CONSISTENT NRG SP Morphine NEGATIVE ng/mL <50 SP medMATCH Morphine CONSISTENT NRG SP Norhydrocodone 282 ng/mL <50 SP medMATCH Norhydrocodone INCONSISTENT NR G SP Barbiturates NEGATIVE ng/mL <300 SP medMATCH Barbiturates CONSISTENT NRG SP Methadone Metabolite NEGATIVE ng/mL <100 SP medMATCH Methadone Metab CONSISTENT NRG SP Phencyclidine NEGATIVE ng/mL <25 SP medMATCH Phencyclidine CONSISTENT NRG SP CULTURE, URINE - 01/29/19 18:39 POS CULTURE, URINE, ROUTINE SEE NOTE NRG SP TSH w/ FREE T4 - 03/26/19 17:01 POS TSH 4.06 mIU/L NRG SP T4, FREE 1.3 ng/dL 0.8-1.8 SP CULTURE, THROAT - 04/16/19 08:08 POS CULTURE, THROAT SEE NOTE NRG SP Encounters ACCT No. Visit Date/Time Discharge Status POS Pt. Type Provider Facility Loc./Un it POS Complaint POS [id number] 04/16/2019 07:35:00 04/16/2019 23:59: 59 CLS SP Outpatient WENCESLAO PARIS [facility] SP [id number] 04/16/2019 07:30:00 Document SPRegistration SP [id number] 01/29/2019 18:20:00 Document SPRegistration SP [id number] 12/12/2018 14:15:00 Document SPRegistration SP [id number] 11/07/2018 17:20:00 Document SPRegistration SP [id number] 10/25/2018 16:10:00 Document SPRegistration SP [id number] 10/12/2018 16:20:00 Document SPRegistration SP [id number] 06/23/2018 04:07:00 ACT SP TRUNG WIGGINS [facility] SP HEADACHE SP [id number] 06/22/2018 22:07:00 ACT SP TRUNG WIGGINS [facility] SP HEADACHE SP [id number] 03/24/2018 19:16:00 [facility] HEADACHE SP [id number] 01/09/2017 18:47:00 ACT SP REDD GASTELUM J [facility] SP HEADACHE SP [id number] 01/07/2017 21:26:00 ACT SP Alma Rosa ADEN A-ED [facility] NSER SP HEADACHE SP [id number] 06/24/2016 20:12:00 ACT SP HERMILO LEIDAKEIRA GRIMM [facility] SP NSER HEADACHE SP [id number] 06/26/2015 20:27:00 ACT SP JC LLANES SP [id number] 05/04/2019 22:14:00 23:07:00 SP DIS Emergency SUSANA LOPEZ MD [facility] ER FS MIGRAINE SP [id number] 04/21/2019 01:30:00 01:54:00 SP DIS Outpatient JOSIE RESENDIZ, NEMO Waters [facility] ER FS HEADACHE,COUGH SP [id number] 04/12/2019 03:14:00 03:52:00 SP DIS Outpatient SUSANA LOPEZ MD [facility] ER FS MIGRAINE SYMPTOMS SP [id number] 04/08/2019 00:35:00 01:59:00 SP DIS Emergency NEMO GALINDO MD [facility] ER FS MIGRAINE SP [id number] 03/19/2019 01:52:00 03:48:00 SP DIS Outpatient SUSANA LOPEZ MD [facility] ER FS SEVERE MIGRAINE SP [id number] 03/14/2019 16:52:00 17:38:00 SP DIS Emergency HERON PERLA DO Via [facility] ER FS HEADACHE SP [id number] 01/30/2019 11:34:00 13:44:00 SP DIS Emergency JOHN RESENDIZ, SUSANA Ramachandran [facility] ER FS HEADACHE; VOMITING SP [id number] 01/01/2019 10:21:00 11:30:00 SP DIS Emergency TRISTEN LANDRY DO [facility] ER FS HEADACHE SP [id number] 12/23/2018 18:47:00 20:51:00 SP DIS Emergency GUIDO DOVERONICA [facility] FS MIGRAINE SP [id number] 2018 15:36:00 16:30:00 SP DIS Emergency KATIA LIRIANO DO Via [facility] ER FS MIGRAINE;NAUSEA;VOMIT ING SP [id number] 10/31/2018 16:57:00 18:30:00 SP DIS Emergency JUSTIN RESENDIZ, JAXSON Mejia [facility] FS HEADACHE SP [id number] 10/24/2018 15:25:00 23:59:59 SP CLS Outpatient RAINA RESENDIZ, WENCESLAO Medina [facility] RAD FS M54.41 SP [id number] 08/22/2018 09:55:00 12:18:00 SP DIS Emergency SABINA DOUGHERTY MD [facility] ER FS HEADACHE SP [id number] 08/21/2018 21:49:00 00:46:00 SP DIS Emergency JOEL ELLIOTT DO Via [facility] FS MIGRAINE, NAUSEA, SENSITIVE TO LIGHT SP SMELLS
== END 2019-04-12 03:52 | disposition home or self-care (01) ==
LOC: EDUNIT# 03:12 → ER FS 03:14
DX: G43.909 Migraine, unspecified, not intractable, without status migrainosus (principal); F41.9 Anxiety disorder, unspecified; Z88.2 Allergy status to sulfonamides; Z88.5 Allergy status to narcotic agent; Z88.8 Allergy status to other drugs, medicaments and biological substances; Z90.710 Acquired absence of both cervix and uterus
CPT/HCPCS: 96372; 99284

== ENCOUNTER 2019-04-21 01:29 | Emergency (ER) | payer MEDICARE, OTHER ==
[~2019-04-21] VITALS: Ht 170 cm; Wt 68.0 kg
--- NOTE | 2019-04-21 01:44 | ED Headache ---
General Chief Complaint: Head/Cervical Problems Stated Complaint: HEADACHE,COUGH Nursing Triage Note: PT COMPLAINING OF A MIGRAINE SINCE LATE SUNDAY NIGHT Nursing Sepsis Screen: No Definite Risk Source: patient Exam Limitations: no limitations History of Present Illness Date Seen by Provider: Apr 21, 2019 Time Seen by Provider: 01:42 Initial Comments Patient complains of migraine headache (global pounding) for the past 24 hours. It is associated with nausea and vomiting and photophobia. She is vomited twice. No trauma. This headache is similar to previous migraines. Allergies and Home Medications Allergies Coded Allergies: Sulfa (Sulfonamide Antibiotics) (Verified Allergy, Mild, Itching, 03/14/19) cefuroxime (Verified Allergy, Unknown, 08/21/18) haloperidol (Verified Allergy, Unknown, 10/31/18) magnesium (Verified Allergy, Unknown, 08/21/18) prochlorperazine (Verified Allergy, Unknown, rash, 08/21/18) topiramate (Verified Allergy, Unknown, 08/21/18) tramadol (Verified Allergy, Unknown, 10/31/18) Uncoded Allergies: DHE (Allergy, Unknown, 10/31/18) Home Medications Cyclobenzaprine HCl 10 Mg Tablet, 10 MG PO Q8H PRN for SPASMS Prescribed by: JAXSON ANDERSON on 10/31/18 1810 Patient Home Medication List Home Medication List Reviewed: Yes Review of Systems Review of Systems Constitutional: no symptoms reported Eyes: Photophobia Ears, Nose, Mouth, Throat: no symptoms reported Respiratory: no symptoms reported Cardiovascular: no symptoms reported Gastrointestinal: nausea, vomiting Genitourinary: no symptoms reported All Other Systems Reviewed Negative Unless Noted: Yes Past [place]-Bgaman-Mpxkfa Hx Patient Social History Alcohol Use: Denies Use Recreational Drug Use: No Smoking Status: Never a Smoker 2nd Hand Smoke Exposure: No Recent Foreign Travel: No Contact w/Someone Who Travel: No Recent Infectious Disease Expo: No Recent Hopitalizations: No Physical Abuse: No Sexual Abuse: No Mistreated: No Seasonal Allergies Seasonal Allergies: No Past Medical History Surgeries: Yes 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 Respiratory: No Cardiac: No Neurological: Yes 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 oz. 70.392177hc; 23.00 BMI Method:Stated General Appearance: WD/WN, no apparent distress HEENT: PERRL/EOMI, pharynx normal Neck: supple Cardiovascular: regular rate, rhythm, no edema Respiratory: lungs clear, normal breath sounds Gastrointestinal: soft Extremities: normal inspection Psychiatric: alert, oriented x 3 Crainal Nerves: normal hearing, normal speech Coordination/Gait: normal gait Motor/Sensory: no motor deficit Skin: normal color, warm/dry Progress/Results/Core Measures Results/Orders My Orders Orders - NMEO GALINDO MD Ketorolac Injection (Toradol Injection) (04/21/19 01:45) Promethazine Injection (Phenergan Injec (04/21/19 01:45) Diphenhydramine Injection (Benadryl Inje (04/21/19 01:45) Vital Signs/I&O 04/21/19 01:33 Temp 36.8 Pulse 98 Resp 18 B/P (MAP) 126/72 (90) Pulse Ox 98 O2 Delivery Room Air Blood Pressure Mean: 90 Departure Impression Primary Impression: Headache Disposition: 01 HOME, SELF-CARE Condition: Stable Departure-Patient Inst. Decision time for Depature: 01:44 Referrals: WENCESLAO PARIS MD (PCP/Family) Primary Care Physician Patient Instructions: Headache, Adult (DC) Add. Discharge Instructions: Resting quiet dark room today. Continue regular medicines. All discharge instructions reviewed with patient and/or family. Voiced understanding. NEMO GALINDO MD Apr 21, 2019 01:44
[2019-04-21] MEDS ORDERED: diphenhydrAMINE 50 MG/ML INJ (BENADRYL) IM ONE (01:45)
[2019-04-21] MEDS ORDERED: PROMETHAZINE INJ 25 MG/ML (PHENERGAN) AMP IM ONE (01:45)
[2019-04-21] MEDS ORDERED: KETOROLAC 60 MG/2 ML VIAL IM ONE (01:45)
[2019-04-21 01:54] VITALS: BP 126/72
== END 2019-04-21 01:54 | disposition home or self-care (01) ==
LOC: EDUNIT# 01:29 → ER FS 01:30
DX: R51 Headache (principal); F41.9 Anxiety disorder, unspecified; Z86.69 Personal history of other diseases of the nervous system and sense organs; Z88.2 Allergy status to sulfonamides; Z88.1 Allergy status to other antibiotic agents; Z88.5 Allergy status to narcotic agent; Z88.8 Allergy status to other drugs, medicaments and biological substances; Z90.710 Acquired absence of both cervix and uterus
CPT/HCPCS: 96372; 99284

== ENCOUNTER 2019-05-04 22:13 | Emergency (ER) | payer MEDICARE, OTHER ==
[~2019-05-04] VITALS: Ht 170 cm; Wt 68.0 kg
[2019-05-04] MEDS ORDERED: diphenhydrAMINE 50 MG/ML INJ (BENADRYL) IM STA (22:46)
[2019-05-04] MEDS ORDERED: PROMETHAZINE INJ 25 MG/ML (PHENERGAN) AMP IM STA (22:46)
[2019-05-04] MEDS ORDERED: KETOROLAC 60 MG/2 ML VIAL IM STA (22:46)
--- NOTE | 2019-05-04 22:47 | ED Headache ---
General Stated Complaint: MIGRAINE Source: patient History of Present Illness Date Seen by Provider: May 04, 2019 Time Seen by Provider: 22:47 Initial Comments 38-year-old female presenting with complaints of left-sided migraine headache. She reports that this feels similar to her usual migraine headache. It started this morning and has proceeded throughout the day. She had tried her normal treatments at home. She has had one episode of vomiting and decided to come in to get medications to try and help with her symptoms rather than continuing to suffer at home. She feels that this episode may have been aggravated by the weather changes. She does have photophobia and phonophobia with this. She denies any fever or chills. Allergies and Home Medications Allergies Coded Allergies: Sulfa (Sulfonamide Antibiotics) (Verified Allergy, Mild, Itching, 03/14/19) cefuroxime (Verified Allergy, Unknown, 08/21/18) haloperidol (Verified Allergy, Unknown, 10/31/18) magnesium (Verified Allergy, Unknown, 08/21/18) prochlorperazine (Verified Allergy, Unknown, rash, 08/21/18) topiramate (Verified Allergy, Unknown, 08/21/18) tramadol (Verified Allergy, Unknown, 10/31/18) Uncoded Allergies: DHE (Allergy, Unknown, 10/31/18) Home Medications Cyclobenzaprine HCl 10 Mg Tablet, 10 MG PO Q8H PRN for SPASMS Prescribed by: JAXSON ANDERSON on 10/31/18 1810 Patient Home Medication List Home Medication List Reviewed: Yes Review of Systems Review of Systems Constitutional: No chills, No fever Eyes: Photophobia Ears, Nose, Mouth, Throat: denies ear pain, denies ear discharge Respiratory: no symptoms reported Cardiovascular: no symptoms reported Gastrointestinal: nausea, vomiting (one time) Genitourinary: No dysuria Musculoskeletal: no symptoms reported Skin: no symptoms reported Psychiatric/Neurological: Headache (feels like her usual migraine headache) Past Dajnggm-Upemnz-Hhczry Hx Past Med/Social Hx: Reviewed Nursing Past Med/Soc Hx Patient Social History 2nd Hand Smoke Exposure: No Recent Foreign Travel: No Contact w/Someone Who Travel: No Recent Hopitalizations: No Seasonal Allergies Seasonal Allergies: No Past Medical History Surgeries: Yes 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 Respiratory: No Cardiac: No Neurological: 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 oz. [id number]; 23.00 BMI Method:Stated General Appearance: WD/WN, mild distress Neck: full range of motion, supple Cardiovascular: normal peripheral pulses, regular rate, rhythm Respiratory: chest non-tender, lungs clear, normal breath sounds Extremities: normal range of motion, non-tender, normal capillary refill Psychiatric: alert, oriented x 3 Coordination/Gait: normal gait Motor/Sensory: no motor deficit, no sensory deficit Skin: normal color, warm/dry Progress/Results/Core Measures Results/Orders My Orders Orders - SUSANA LOPEZ MD Ketorolac Injection (Toradol Injection) (05/04/19 22:46) Promethazine Injection (Phenergan Injec (05/04/19 22:46) Diphenhydramine Injection (Benadryl Inje (05/04/19 22:46) Vital Signs/I&O 05/04/19 05/04/19 22:45 23:07 Temp 36.5 Pulse 85 85 Resp 16 16 B/P (MAP) 129/74 (92) 129/74 Pulse Ox 99 99 O2 Delivery Room Air Room Air Progress Progress Note : Progress Note Since this feels like her typical migraine headache we will order the medicines that she has gotten previously. Toradol 60 mg IM, Phenergan 25 mg IM, Benadryl 50 mg IM. Discharged to home and encouraged to rest in a cool dark room. Encouraged to follow-up through the clinic for continued treatment and concerns Departure Impression Primary Impression: Migraine Qualified Codes: G43.019 - Migraine without aura, intractable, without status migrainosus Disposition: HOME, SELF-CARE Condition: Stable Departure-Patient Inst. Decision time for Depature: 23:04 Referrals: WENCESLAO PARIS MD (PCP/Family) Primary Care Physician Patient Instructions: Migraine Headache (DC) Add. Discharge Instructions: Rest in a cool dark room Try to keep sipping on fluids and stay well hydrated Follow up with clinic for continued concerns SUSANA LOPEZ MD May 04, 2019 22:47 POS
[2019-05-04 23:07] VITALS: BP 129/74
== END 2019-05-04 23:07 | disposition home or self-care (01) ==
LOC: EDUNIT# 22:13 → ER FS 22:14
DX: G43.909 Migraine, unspecified, not intractable, without status migrainosus (principal); F41.9 Anxiety disorder, unspecified; Z88.2 Allergy status to sulfonamides; Z88.1 Allergy status to other antibiotic agents; Z88.5 Allergy status to narcotic agent; Z88.8 Allergy status to other drugs, medicaments and biological substances; Z90.710 Acquired absence of both cervix and uterus
CPT/HCPCS: 96372; 99284

== ENCOUNTER 2019-05-16 18:57 | Emergency (ER) | payer MEDICARE, OTHER ==
[~2019-05-16] VITALS: Ht 170 cm; Wt 69.0 kg
[2019-05-16] MEDS ORDERED: diphenhydrAMINE 50 MG/ML INJ (BENADRYL) IM ONE (19:15)
[2019-05-16] MEDS ORDERED: KETOROLAC 60 MG/2 ML VIAL IM ONE (19:15)
[2019-05-16] MEDS ORDERED: PROMETHAZINE INJ 25 MG/ML (PHENERGAN) AMP IM ONE (19:15)
--- NOTE | 2019-05-16 19:27 | ED Headache ---
General Chief Complaint: Head/Cervical Problems Stated Complaint: MIGRAINE Nursing Triage Note: PT COMPLAINING OF A MIGRAINE SINCE 8AM Nursing Sepsis Screen: No Definite Risk Source: patient Exam Limitations: no limitations History of Present Illness Date Seen by Provider: May 16, 2019 Time Seen by Provider: 19:06 Initial Comments onset of migraine (her typical after botox inject) this morning. + nausea without vomiting and light sensitivity. NO increased severity. Long-term Hx of migraine GROSSMAN's w multiple drug allergies....noted. Specifically requesting IM: toradol, benadryl and phenergan Allergies and Home Medications Allergies Coded Allergies: Sulfa (Sulfonamide Antibiotics) (Verified Allergy, Mild, Itching, 03/14/19) cefuroxime (Verified Allergy, Unknown, 08/21/18) haloperidol (Verified Allergy, Unknown, 10/31/18) magnesium (Verified Allergy, Unknown, 08/21/18) prochlorperazine (Verified Allergy, Unknown, rash, 08/21/18) topiramate (Verified Allergy, Unknown, 08/21/18) tramadol (Verified Allergy, Unknown, 10/31/18) Uncoded Allergies: DHE (Allergy, Unknown, 10/31/18) Home Medications Cyclobenzaprine HCl 10 Mg Tablet, 10 MG PO Q8H PRN for SPASMS Prescribed by: JAXSON ANDERSON on 10/31/18 1810 Patient Home Medication List Home Medication List Reviewed: Yes Review of Systems Review of Systems Constitutional: see HPI; No dizziness, No fever; malaise; No weakness Eyes: Denies Inflammation, Denies Pain; Photophobia Ears, Nose, Mouth, Throat: denies ear pain, denies ear discharge, denies nose discharge Respiratory: no symptoms reported Cardiovascular: no symptoms reported Psychiatric/Neurological: Headache; Denies Numbness, Denies Paresthesia, Denies Seizure Past Aqoiggb-Gzikkd-Qjbnmk Hx Patient Social History Alcohol Use: Denies Use Recreational Drug Use: No Smoking Status: Never a Smoker 2nd Hand Smoke Exposure: No Recent Foreign Travel: No Contact w/Someone Who Travel: No Recent Infectious Disease Expo: No Recent Hopitalizations: No Physical Abuse: No Sexual Abuse: No Mistreated: No Seasonal Allergies Seasonal Allergies: No Past Medical History Surgeries: Yes 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 Respiratory: No Cardiac: No 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 oz. 70.363483yl; 23.00 BMI Method:Stated General Appearance: WD/WN, no apparent distress HEENT: PERRL/EOMI, pharynx normal Neck: non-tender, supple, normal inspection Crainal Nerves: normal hearing, normal speech, PERRL Motor/Sensory: no motor deficit, no sensory deficit Skin: normal color, warm/dry Progress/Results/Core Measures Results/Orders My Orders Orders - HERON PERLA DO Promethazine Injection (Phenergan Injec (05/16/19 19:15) Diphenhydramine Injection (Benadryl Inje (05/16/19 19:15) Ketorolac Injection (Toradol Injection) (05/16/19 19:15) Medications Given in ED Current Medications Medications Dose Ordered Sig/Shell Route Start Time Stop Time Status Last Admin Dose Admin Diphenhydramine HCl 25 mg ONCE ONCE IM 05/16/19 19:15 05/16/19 19:16 DC 05/16/19 19:19 25 MG Ketorolac Tromethamine 30 mg ONCE ONCE IM 05/16/19 19:15 05/16/19 19:16 DC 05/16/19 19:20 30 MG Promethazine HCl 25 mg ONCE ONCE IM 05/16/19 19:15 05/16/19 19:16 DC 05/16/19 19:19 25 MG Vital Signs/I&O 05/16/19 05/16/19 19:00 19:29 Temp 37.2 Pulse 84 84 Resp 16 16 B/P (MAP) 130/70 (90) 130/77 Pulse Ox 99 99 O2 Delivery Room Air Room Air Blood Pressure Mean: 90 POS Departure Impression Primary Impression: Migraine Qualified Codes: G43.909 - Migraine, unspecified, not intractable, without status migrainosus Disposition: 01 HOME, SELF-CARE Condition: Stable Departure-Patient Inst. Decision time for Depature: 19:26 Referrals: WENCESLAO PARIS MD (PCP/Family) Primary Care Physician Patient Instructions: Migraine Headache (DC) HERON PERLA DO May 16, 2019 19:27 POS
[2019-05-16 19:29] VITALS: BP 130/77
== END 2019-05-16 19:30 | disposition home or self-care (01) ==
LOC: ER FS 18:57 → EDUNIT# 18:57 → ER FS 19:30
DX: G43.909 Migraine, unspecified, not intractable, without status migrainosus (principal); F41.9 Anxiety disorder, unspecified; Z88.2 Allergy status to sulfonamides; Z88.1 Allergy status to other antibiotic agents; Z88.5 Allergy status to narcotic agent; Z88.8 Allergy status to other drugs, medicaments and biological substances; Z90.710 Acquired absence of both cervix and uterus
CPT/HCPCS: 96372; 99284

== ENCOUNTER 2019-05-20 18:37 | Emergency (ER) | payer MEDICARE, OTHER ==
[~2019-05-20] VITALS: Ht 172 cm; Wt 70.6 kg
--- NOTE | 2019-05-20 18:51 | ED Headache ---
General Chief Complaint: Head/Cervical Problems Stated Complaint: HEADACHE Source: patient Exam Limitations: no limitations History of Present Illness Date Seen by Provider: May 20, 2019 Time Seen by Provider: 18:42 Initial Comments The patient is a pleasant 38-year-old female who presents for evaluation of a migraine headache. She has a history of chronic migraines and states that this feels the same as her normal migraines. She was here only a few days ago for the same complaint. He received Botox injections for her migraines. He has been compliant with her medications at home but is still having headaches. She denies vision changes, neck pain or stiffness, fevers or chills, focal weakness or focal numbness, or syncope. She has been having some nausea. The pain began gradually and she denies any recent head injury. Timing/Duration: 24 hours Severity/Quality: moderate Location: temporal (right), parietal (right) Prior Headaches/Recent Trauma: frequent headaches Modifying Factors: improves with exposure to light (makes it worse) Allergies and Home Medications Allergies Coded Allergies: Sulfa (Sulfonamide Antibiotics) (Verified Allergy, Mild, Itching, 03/14/19) cefuroxime (Verified Allergy, Unknown, 08/21/18) haloperidol (Verified Allergy, Unknown, 10/31/18) magnesium (Verified Allergy, Unknown, 08/21/18) prochlorperazine (Verified Allergy, Unknown, rash, 08/21/18) topiramate (Verified Allergy, Unknown, 08/21/18) tramadol (Verified Allergy, Unknown, 10/31/18) Uncoded Allergies: DHE (Allergy, Unknown, 10/31/18) Home Medications Cyclobenzaprine HCl 10 Mg Tablet, 10 MG PO Q8H PRN for SPASMS Prescribed by: JAXSON ANDERSON on 10/31/18 1810 Patient Home Medication List Home Medication List Reviewed: Yes Review of Systems Review of Systems Constitutional: no symptoms reported Eyes: No Symptoms Reported Ears, Nose, Mouth, Throat: no symptoms reported Respiratory: no symptoms reported Cardiovascular: no symptoms reported Gastrointestinal: no symptoms reported Genitourinary: no symptoms reported Musculoskeletal: no symptoms reported Skin: no symptoms reported Psychiatric/Neurological: Headache All Other Systems Reviewed Negative Unless Noted: Yes Past Ezhkpof-Ddesxo-Cgtoep Hx Past Med/Social Hx: Reviewed Nursing Past Med/Soc Hx Patient Social History 2nd Hand Smoke Exposure: No Recent Hopitalizations: No Seasonal Allergies Seasonal Allergies: No Past Medical History Surgeries: Yes 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 Respiratory: No Cardiac: No Neurological: Yes Headaches /Migraines [employer]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 oz. 70.358266nm; 23.00 BMI Method:Stated General Appearance: WD/WN, no apparent distress HEENT: PERRL/EOMI, pharynx normal Neck: non-tender, full range of motion, supple, normal inspection Cardiovascular: regular rate, rhythm, no edema, no JVD Respiratory: lungs clear, normal breath sounds, no respiratory distress, no accessory muscle use Gastrointestinal: normal bowel sounds, non tender, soft Extremities: normal range of motion, no pedal edema, no calf tenderness Psychiatric: alert, oriented x 3 Crainal Nerves: normal hearing, normal speech, PERRL Coordination/Gait: normal gait Motor/Sensory: no motor deficit, no sensory deficit Skin: normal color, warm/dry Progress/Results/Core Measures Results/Orders My Orders Orders - VAISHALI CHRISTOPHER DO Urine Bedside (05/20/19 18:38) Diphenhydramine Injection (Benadryl Inje (05/20/19 19:00) Ketorolac Injection (Toradol Injection) (05/20/19 19:00) Promethazine Injection (Phenergan Injec (05/20/19 19:00) Medications Given in ED Current Medications Medications Dose Ordered Sig/Shell Route Start Time Stop Time Status Last Admin Dose Admin Diphenhydramine HCl 50 mg ONCE ONCE IM 05/20/19 19:00 05/20/19 19:01 DC 05/20/19 18:59 50 MG Ketorolac Tromethamine 60 mg ONCE ONCE IM 05/20/19 19:00 05/20/19 19:01 DC 05/20/19 18:59 60 MG Promethazine HCl 25 mg ONCE ONCE IM 05/20/19 19:00 05/20/19 19:01 DC 05/20/19 18:58 25 MG Vital Signs/I&O 05/20/19 18:40 Temp 37.1 Pulse 84 Resp 14 B/P (MAP) 123/75 (91) Pulse Ox 99 O2 Delivery Room Air Progress Progress Note : Progress Note @1905 - Patient reports feeling better after medications and is asking to go home. Advised patient to follow-up with her PCP in the next 1-2 days and to return to the emergency department for new or worsening symptoms. The patient expresses verbal understanding and agreement and is stable for discharge. Departure Impression Primary Impression: Migraine Disposition: 01 HOME, SELF-CARE Condition: Stable Departure-Patient Inst. Decision time for Depature: 19:10 Referrals: WENCESLAO PARIS MD (PCP/Family) Primary Care Physician Patient Instructions: Migraine Headache (DC) Add. Discharge Instructions: Follow-up with your doctor in the next 1-2 days. Return to the emergency Department immediately for new or worsening symptoms. Take Tylenol or ibuprofen at home and drink plenty of fluids. VAISHALI CHRISTOPHER DO May 20, 2019 18:51 POS
[2019-05-20] MEDS ORDERED: diphenhydrAMINE 50 MG/ML INJ (BENADRYL) IM ONE (19:00)
[2019-05-20] MEDS ORDERED: PROMETHAZINE INJ 25 MG/ML (PHENERGAN) AMP IM ONE (19:00)
[2019-05-20] MEDS ORDERED: KETOROLAC 60 MG/2 ML VIAL IM ONE (19:00)
[2019-05-20 19:18] VITALS: BP 123/75
== END 2019-05-20 19:20 | disposition home or self-care (01) ==
LOC: EDUNIT# 18:37 → ER FS 18:38
DX: G43.909 Migraine, unspecified, not intractable, without status migrainosus (principal); F41.9 Anxiety disorder, unspecified; Z88.2 Allergy status to sulfonamides; Z88.1 Allergy status to other antibiotic agents; Z88.8 Allergy status to other drugs, medicaments and biological substances; Z88.5 Allergy status to narcotic agent; Z90.710 Acquired absence of both cervix and uterus
CPT/HCPCS: 96372; 99284

== ENCOUNTER 2019-05-27 18:37 | Emergency (ER) | payer MEDICARE, OTHER ==
[~2019-05-27] VITALS: Ht 170 cm; Wt 70.4 kg
--- NOTE | 2019-05-27 19:03 | ED Headache ---
General Chief Complaint: Head/Cervical Problems Stated Complaint: MIGRAINE SYMPTOMS Nursing Triage Note: Has been having a migraine that started today. Is nauseated but has not thrown up. Nursing Sepsis Screen: No Definite Risk History of Present Illness Date Seen by Provider: May 27, 2019 Time Seen by Provider: 18:50 Initial Comments Patient is here with a headache had a headache last week and received treatment Toradol Benadryl Phenergan has had that happen before right-sided no known trigger in there approximately 10 hours had massage that it might get better but continues to be problematic some visual change light bothers photophobic tried her usual medications but now is here because it hasn't helped Timing/Duration: 4-6 hours Severity/Quality: moderate Location: temporal Prior Headaches/Recent Trauma: no recent headache/trauma, frequent headaches, chronic headaches Modifying Factors: worse with exposure to light; improves with medication, improves with rest Associated Symptoms: No confusion; fatigue; No fever/chills, No flushing, No loss of consciousness; nausea/vomiting; No nasal congestion, No nasal drainage, No numbness in legs/feet, No rash, No seizures, No sinus infection, No stiff neck, No vision changes, No weakness, No other Allergies and Home Medications Allergies Coded Allergies: Sulfa (Sulfonamide Antibiotics) (Verified Allergy, Mild, Itching, 03/14/19) cefuroxime (Verified Allergy, Unknown, 08/21/18) haloperidol (Verified Allergy, Unknown, 10/31/18) magnesium (Verified Allergy, Unknown, 08/21/18) prochlorperazine (Verified Allergy, Unknown, rash, 08/21/18) topiramate (Verified Allergy, Unknown, 08/21/18) tramadol (Verified Allergy, Unknown, 10/31/18) Uncoded Allergies: DHE (Allergy, Unknown, 10/31/18) Home Medications Cyclobenzaprine HCl 10 Mg Tablet, 10 MG PO Q8H PRN for SPASMS Prescribed by: JAXSON ANDERSON on 10/31/18 1810 Patient Home Medication List Home Medication List Reviewed: Yes Review of Systems Review of Systems Constitutional: No dizziness, No fever; malaise; No weakness Eyes: Denies Blurred Vision; Photophobia Ears, Nose, Mouth, Throat: denies nose discharge, denies throat pain, denies throat swelling Respiratory: No cough, No short of breath Cardiovascular: No chest pain, No palpitations Gastrointestinal: No abdominal pain, No diarrhea; nausea, vomiting Genitourinary: No dysuria, No frequency Musculoskeletal: No joint swelling; neck pain Skin: No lesions, No rash Psychiatric/Neurological: Headache; Denies Numbness, Denies Paresthesia Past Sysfqic-Mztaft-Bzrdts Hx Past Med/Social Hx: Reviewed Nursing Past Med/Soc Hx Patient Social History Alcohol Use: Denies Use Recreational Drug Use: No Smoking Status: Never a Smoker 2nd Hand Smoke Exposure: No Recent Foreign Travel: No Contact w/Someone Who Travel: No Recent Infectious Disease Expo: No Recent Hopitalizations: No Physical Abuse: No Sexual Abuse: No Mistreated: No Fear: No Seasonal Allergies Seasonal Allergies: No Past Medical History Surgeries: Yes 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 Respiratory: No Cardiac: No 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 oz. 70.324243as; 24.00 BMI Method:Stated General Appearance: WD/WN, mild distress HEENT: PERRL/EOMI, TMs normal, pharynx normal Neck: non-tender, full range of motion Cardiovascular: regular rate, rhythm, no murmur Respiratory: lungs clear, normal breath sounds Gastrointestinal: normal bowel sounds, non tender Back: no vertebral tenderness Extremities: normal range of motion, normal inspection Psychiatric: alert, oriented x 3 Motor/Sensory: no motor deficit, no sensory deficit Reflexes: 2+ Bicep (R), 2+ Bicep (L), 2+ Knee (R), 2+ Knee (L) Skin: normal color, warm/dry Lymphatic: no adenopathy Progress/Results/Core Measures Results/Orders My Orders Orders - HENOK BELTRAN JR, MD Ketorolac Injection (Toradol Injection) (05/27/19 19:15) Diphenhydramine Injection (Benadryl Inje (05/27/19 19:15) Promethazine Injection (Phenergan Injec (05/27/19 19:15) Vital Signs/I&O 05/27/19 18:43 Temp 36.4 Pulse 92 Resp 14 B/P (MAP) 116/70 (85) Pulse Ox 98 Blood Pressure Mean: 85 POS Progress Progress Note : Progress Note Seems to be the patient's normal pattern with headaches and no seen on the exam would say differently this time we'll treat her in the usual manner and have her follow up with her PCP Departure Impression Primary Impression: Migraine Qualified Codes: G43.009 - Migraine without aura, not intractable, without status migrainosus Disposition: 01 HOME, SELF-CARE Condition: Stable Departure-Patient Inst. Decision time for Depature: 19:14 Referrals: WENCESLAO PARIS MD (PCP/Family) Primary Care Physician Patient Instructions: Migraine Headache (DC) HENOK BELTRAN JR, MD May 27, 2019 19:02 POS
[2019-05-27] MEDS ORDERED: diphenhydrAMINE 50 MG/ML INJ (BENADRYL) IM ONE (19:15)
[2019-05-27] MEDS ORDERED: KETOROLAC 30 MG/ML VIAL IM ONE (19:15)
[2019-05-27] MEDS ORDERED: PROMETHAZINE INJ 25 MG/ML (PHENERGAN) AMP IM ONE (19:15)
[2019-05-27 19:27] VITALS: BP 116/70
--- OUTSIDE RECORDS SUMMARY | 2019-06-22 09:29 | XMS REPORT | Continuity of Care Document ---
Author Organization Unknown Address Unknown Phone Unavailable Allergies Active Description Code Type Severity Reaction Onset Reported/Identified Relationship to Patient Clinical Status Yes Sulfa (Sulfonamides) 491 Unknown N/A 06/24/2016 Yes Ceftin 3716 Unknown N/A 03/24/2018 Yes Compazine 3622 Unknown N/A 03/24/2018 Yes Magnesium 784 Unknown N/A 03/24/2018 Yes Topamax 23721 Unknown N/A 03/24/2018 Yes SULFA SULFA Mild itchy 08/21/2018 Yes cefuroxime [id number] Drug Allerg y Unknown N/A 08/21/2018 Yes magnesium [id number] Drug Allergy Unknown N/A 08/21/2018 Yes No Known Drug Allergies [id number] Drug Allergy Unknown N/A 08/21/2018 Yes prochlorperazine [id number] Drug Allergy Unknown rash 08/21/2018 Yes topiramate [id number] Drug Allerg y Unknown N/A 08/21/2018 Yes DHE DHE Unknown N/A 10/31/2018 Yes haloperidol [id number] Drug Aller gy Unknown N/A 10/31/2018 Yes tramadol [id number] Drug Allergy Unknown N/A 10/31/2018 Yes Sulfa (Sulfonamide Antibiotics) [id number] Drug Allergy Mild Itching 019 Medications There is no data. Problems Date Dx Coded Attending Type Code Diagnosis Diagnosed By 07/30/2015 JC LLANES 346.90 MIGRAINE, UNSPECIFIED, WITHOUT MENTION OF INTRACTABLE MIGRAINE WITHOUT MENTION O 07/30/2015 JC LLANES G43.909 MIGRAINE, UNSPECIFIED, NOT INTRACTABLE, WITHOUT STATUS MIGRAINOSUS 07/13/2016 LEIDA AKHTAR S E03. 9 HYPOTHYROIDISM, UNSPECIFIED 07/13/2016 LEIDA AKHTAR G43. 009 MIGRAINE WITHOUT AURA, NOT INTRACTABLE, WITHOUT STATUS MIGRAINOSUS 01/26/2017 REDD GASTELUM G43.90 9 MIGRAINE, UNSPECIFIED, NOT INTRACTABLE, WITHOUT STATUS MIGRAINOSUS 01/26/2017 Alma Rosa ADEN-ED P G43.009 MIGRAINE WITHOUT AURA, NOT INTRACTABLE, WITHOUT STATUS MIGRAINOSUS 07/18/2018 [facility] G43.809 OTHER MIGRAINE, NOT INTRACTABLE, WITHOUT STATUS MIGRAI NOSUS 07/18/2018 LUBIN [facility] A R51 HEADACHE 08/22/2018 EARL ARAGON JOEL T Ot R11. 2 NAUSEA WITH VOMITING, UNSPECIFIED 08/22/2018 EARL ARAGON JOEL T Ot R51 HEADACHE 08/22/2018 EARL ARAGON JOEL T Ot Z88. 2 ALLERGY STATUS TO SULFONAMIDES STATUS 08/22/2018 EARL ARAGON JOEL T Ot Z88. 8 ALLERGY STATUS TO OTH DRUG/MEDS/BIOL SUB 08/22/2018 [...] UTER 08/23/2018 EARL ARAGON JOEL T Ot R11. 2 NAUSEA WITH VOMITING, UNSPECIFIED 08/23/2018 EARL ARAGON JOEL T Ot R51 HEADACHE 08/23/2018 EARL ARAGON JOEL T Ot Z88. 2 ALLERGY STATUS TO SULFONAMIDES STATUS 08/23/2018 EARL ARAGON JOEL T Ot Z88. 8 ALLERGY STATUS TO OTH DRUG/MEDS/BIOL SUB 08/23/2018 SABINA DOUGHERTY MD Ot E86.0 DEHYDRATION 08/23/2018 SABINA DOUGHERTY MD Ot F41.9 ANXIETY DISORDER, UNSPECIFIED 08/23/2018 SABINA DOUGHERTY MD Ot G43.909 MIGRAINE, UNSP, NOT INTRACTABLE, WITHOUT 08/23/2018 SABINA DOUGHERTY MD Ot Z87.891 PERSONAL HISTORY OF NICOTINE DEPENDENCE 08/23/2018 FARHAT RESENDIZ, SABINA Purdy Ot Z88.2 ALLERGY STATUS TO SULFONAMIDES STATUS 08/23/2018 SABINA DOUGHERTY MD Ot Z88.8 ALLERGY STATUS TO OTH DRUG/MEDS/BIOL SUB 08/23/2018 SABINA DOUGHERTY MD Ot Z90.710 ACQUIRED ABSENCE OF BOTH CERVIX AND UTER 09/09/2018 DILLAN WIGGINSA L P G43.9 09 MIGRAINE, UNSPECIFIED, NOT INTRACTABLE, WITHOUT STATUS MIGRAINOSUS 09/09/2018 DILLAN WIGGINSA L P G43.9 09 MIGRAINE, UNSPECIFIED, NOT INTRACTABLE, WITHOUT STATUS MIGRAINOSUS 09/09/2018 DILLAN WIGGINSA L S R11.2 NAUSEA WITH VOMITING, UNSPECIFIED 10/31/2018 JAXSON ANDERSON MD Ot F41. 9 ANXIETY DISORDER, UNSPECIFIED 10/31/2018 JAXSON ANDERSON MD Ot G43.909 MIGRAINE, UNSP, NOT INTRACTABLE, WITHOUT 10/31/2018 JAXSON ANDERSON MD Ot R51 HEADACHE 10/31/2018 JAXSON ANDERSON MD Ot Z88. 2 ALLERGY STATUS TO SULFONAMIDES STATUS 10/31/2018 JAXSON ANDERSON MD Ot Z88. 6 ALLERGY STATUS TO ANALGESIC AGENT STATUS 10/31/2018 JAXSON ANDERSON MD Ot Z88. 8 ALLERGY STATUS TO OTH DRUG/MEDS/BIOL SUB 10/31/2018 JAXSON ANDERSON MD Ot Z90.710 ACQUIRED ABSENCE OF BOTH CERVIX AND UTER 11/04/2018 JAXSON ANDERSON MD Ot F41. 9 ANXIETY DISORDER, UNSPECIFIED 11/04/2018 JAXSON ANDERSON MD Ot G43.909 MIGRAINE, UNSP, NOT INTRACTABLE, WITHOUT 11/04/2018 JAXSON ANDERSON MD Ot R51 HEADACHE 11/04/2018 JAXSON ANDERSON MD Ot Z88. 2 ALLERGY STATUS TO SULFONAMIDES STATUS 11/04/2018 JAXSON ANDERSON MD Ot Z88. 6 ALLERGY STATUS TO ANALGESIC AGENT STATUS 11/04/2018 JAXSON ANDERSON MD Ot Z88. 8 ALLERGY STATUS TO OTH DRUG/MEDS/BIOL SUB 11/04/2018 JAXSON ANDERSON MD Ot Z90.710 ACQUIRED ABSENCE OF BOTH CERVIX AND UTER 11/14/2018 RAINA RESENDIZ, WENCESLAO Medina Ot M54.41 LUMBAGO WITH SCIATICA, RIGHT SIDE 2018 KATIA LIRIANO DO Ot F41.9 ANXIETY DISORDER, UNSPECIFIED 2018 KATIA LIRIANO DO Ot G43.909 MIGRAINE, UNSP, NOT INTRACTABLE, WITHOUT 2018 KATIA LIRIANO DO Ot R5 1 HEADACHE 2018 KATIA LIRIANO DO Ot Z88.2 ALLERGY STATUS TO SULFONAMIDES STATUS 2018 KATIA LIRIANO DO Ot Z88.5 ALLERGY STATUS TO NARCOTIC AGENT STATUS 2018 KATIA LIRIANO DO Ot Z88.8 ALLERGY STATUS TO OTH DRUG/MEDS/BIOL SUB 2018 KATIA LIRIANO DO Ot Z90.710 ACQUIRED ABSENCE OF BOTH CERVIX AND UTER 12/23/2018 VERONICA LORA DO Ot F41 .9 ANXIETY DISORDER, UNSPECIFIED 12/23/2018 VERONICA LORA DO Ot G43.909 MIGRAINE, UNSP, NOT INTRACTABLE, WITHOUT 12/23/2018 VERONICA LORA DO Ot Z88 .1 ALLERGY STATUS TO OTHER ANTIBIOTIC AGENT 12/23/2018 VERONICA LORA DO Ot Z88 .2 ALLERGY STATUS TO SULFONAMIDES STATUS 12/23/2018 VERONICA LORA DO Ot Z88 .5 ALLERGY STATUS TO NARCOTIC AGENT STATUS 12/23/2018 VERONICA LORA DO Ot Z88 .8 ALLERGY STATUS TO OTH DRUG/MEDS/BIOL SUB 12/23/2018 VERONICA LORA DO Ot Z90.710 ACQUIRED ABSENCE OF BOTH CERVIX AND UTER 12/24/2018 KATIA LIRIANO DO Ot F41.9 ANXIETY DISORDER, UNSPECIFIED 12/24/2018 KATIA LIRIANO DO Ot G43.909 MIGRAINE, UNSP, NOT INTRACTABLE, WITHOUT 12/24/2018 KATIA LIRIANO DO Ot R5 1 HEADACHE 12/24/2018 KATIA LIRIANO DO Ot Z88.2 ALLERGY STATUS TO SULFONAMIDES STATUS 12/24/2018 KATIA LIRIANO DO Ot Z88.5 ALLERGY STATUS TO NARCOTIC AGENT STATUS 12/24/2018 KATIA LIRIANO DO Ot Z88.8 ALLERGY STATUS TO OTH DRUG/MEDS/BIOL SUB 12/24/2018 KATIA LIRIANO DO Ot Z90.710 ACQUIRED ABSENCE OF BOTH CERVIX AND UTER 12/25/2018 VERONICA LORA DO Ot F41 .9 ANXIETY DISORDER, UNSPECIFIED 12/25/2018 VERONICA LORA DO Ot G43.909 MIGRAINE, UNSP, NOT INTRACTABLE, WITHOUT 12/25/2018 VERONICA LORA DO Ot Z88 .1 ALLERGY STATUS TO OTHER ANTIBIOTIC AGENT 12/25/2018 VERONICA LORA DO Ot Z88 .2 ALLERGY STATUS TO SULFONAMIDES STATUS 12/25/2018 VERONICA LORA DO Ot Z88 .5 ALLERGY STATUS TO NARCOTIC AGENT STATUS 12/25/2018 VERONICA LORA DO Ot Z88 .8 ALLERGY STATUS TO OTH DRUG/MEDS/BIOL SUB 12/25/2018 VERONICA LORA DO Ot Z90.710 ACQUIRED ABSENCE OF BOTH CERVIX AND UTER 01/01/2019 FRANTZ DOTRISTEN Ot F41.9 ANXIETY DISORDER, UNSPECIFIED 01/01/2019 LANDRY DO, TRISTEN Ot G43.909 MIGRAINE, UNSP, NOT INTRACTABLE, WITHOUT 01/01/2019 LANDRY DO, TRISTEN Ot R51 HEADACHE 01/01/2019 FRANTZ DO, TRISTEN Ot Z88.1 ALLERGY STATUS TO OTHER ANTIBIOTIC AGENT 01/01/2019 FRANTZ DO, TRISTEN Ot Z88.2 ALLERGY STATUS TO SULFONAMIDES STATUS 01/01/2019 FRANTZ DO, TRISTEN Ot Z88.5 ALLERGY STATUS TO NARCOTIC AGENT STATUS 01/01/2019 FRANTZ DO, TRISTEN Ot Z88.8 ALLERGY STATUS TO OTH DRUG/MEDS/BIOL SUB 01/01/2019 FRANTZ DO TRISTEN Ot Z90.710 ACQUIRED ABSENCE OF BOTH CERVIX AND UTER 01/02/2019 RAINA RESENDIZ, WENCESLAO Medina Ot M54.41 LUMBAGO WITH SCIATICA, RIGHT SIDE 01/07/2019 FRANTZ DO, TRISTEN Ot F41.9 ANXIETY DISORDER, UNSPECIFIED 01/07/2019 LANDRY DO, TRISTEN Ot G43.909 MIGRAINE, UNSP, NOT INTRACTABLE, WITHOUT 01/07/2019 LANDRY DO, TRISTEN Ot R51 HEADACHE 01/07/2019 LANDRY DO, TRISTEN Ot Z88.1 ALLERGY STATUS TO OTHER ANTIBIOTIC AGENT 01/07/2019 FRANTZ DO, TRISTEN Ot Z88.2 ALLERGY STATUS TO SULFONAMIDES STATUS 01/07/2019 FRANTZ DO, TRISTEN Ot Z88.5 ALLERGY STATUS TO NARCOTIC AGENT STATUS 01/07/2019 FRANTZ DO, TRISTEN Ot Z88.8 ALLERGY STATUS TO OTH DRUG/MEDS/BIOL SUB 01/07/2019 TRISTEN LANDRY DO Ot Z90.710 ACQUIRED ABSENCE OF BOTH CERVIX AND UTER 01/30/2019 SUSANA LOPEZ MD Ot F41.9 ANXIETY DISORDER, UNSPECIFIED 01/30/2019 SUSANA LOPEZ MD Ot G43.0 19 MIGRAINE W/O AURA, INTRACTABLE, WITHOUT 01/30/2019 SUSANA LOPEZ MD Ot N39.0 URINARY TRACT INFECTION, SITE NOT SPECIF 01/30/2019 SUSANA LOPEZ MD Ot R51 HEADACHE 01/30/2019 SUSANA LOPEZ MD Ot Z88.1 ALLERGY STATUS TO OTHER ANTIBIOTIC AGENT 01/30/2019 SUSANA LOPEZ MD Ot Z88.2 ALLERGY STATUS TO SULFONAMIDES STATUS 01/30/2019 SUSANA LOPEZ MD Ot Z88.5 ALLERGY STATUS TO NARCOTIC AGENT STATUS 01/30/2019 SUSANA LOPEZ MD Ot Z88.8 ALLERGY STATUS TO OTH DRUG/MEDS/BIOL SUB 01/30/2019 SUSANA LOPEZ MD Ot Z90.7 10 ACQUIRED ABSENCE OF BOTH CERVIX AND UTER 02/03/2019 SUSANA LOPEZ MD Ot F41.9 ANXIETY DISORDER, UNSPECIFIED 02/03/2019 SUSANA LOPEZ MD Ot G43.0 19 MIGRAINE W/O AURA, INTRACTABLE, WITHOUT 02/03/2019 SUSANA LOPEZ MD Ot N39.0 URINARY TRACT INFECTION, SITE NOT SPECIF 02/03/2019 SUSANA LOPEZ MD Ot R51 HEADACHE 02/03/2019 SUSANA LOPEZ MD Ot Z88.1 ALLERGY STATUS TO OTHER ANTIBIOTIC AGENT 02/03/2019 SUSANA LOPEZ MD Ot Z88.2 ALLERGY STATUS TO SULFONAMIDES STATUS 02/03/2019 SUSANA LOPEZ MD Ot Z88.5 ALLERGY STATUS TO NARCOTIC AGENT STATUS 02/03/2019 SUSANA LOPEZ MD Ot Z88.8 ALLERGY STATUS TO OTH DRUG/MEDS/BIOL SUB 02/03/2019 SUSANA LOPEZ MD Ot Z90.7 10 ACQUIRED ABSENCE OF BOTH CERVIX AND UTER 03/14/2019 ROVENSTINE HERON ARAGON Ot F41.9 ANXIETY DISORDER, UNSPECIFIED 03/14/2019 ROVENSTINE HERON ARAGON Ot G43.909 MIGRAINE, UNSP, NOT INTRACTABLE, WITHOUT 03/14/2019 ROVENSTINE DO, HERON Mead Ot R51 HEADACHE 03/14/2019 ROVENSTINE DO, HERON Mead Ot Z88.1 ALLERGY STATUS TO OTHER ANTIBIOTIC AGENT 03/14/2019 ROVENSTINE DO, HERON L Ot Z88.2 ALLERGY STATUS TO SULFONAMIDES STATUS 03/14/2019 ROVENSTINE DO, HERON L Ot Z88.5 ALLERGY STATUS TO NARCOTIC AGENT STATUS 03/14/2019 ROVENSTINE DO, HERON L Ot Z88.8 ALLERGY STATUS TO OTH DRUG/MEDS/BIOL SUB 03/14/2019 ROVENSTINE DO, HERON L Ot Z90.710 ACQUIRED ABSENCE OF BOTH CERVIX AND UTER 03/18/2019 ROVENSTINE DO, HERON L Ot F41.9 ANXIETY DISORDER, UNSPECIFIED 03/18/2019 ROVENSTINE DO, HERON L Ot G43.909 MIGRAINE, UNSP, NOT INTRACTABLE, WITHOUT 03/18/2019 ROVENSTINE DO, HERON L Ot R51 HEADACHE 03/18/2019 ROVENSTINE DO, HERON Alyce Ot Z88.1 ALLERGY STATUS TO OTHER ANTIBIOTIC AGENT 03/18/2019 ROVENSTINE DO, HERON L Ot Z88.2 ALLERGY STATUS TO SULFONAMIDES STATUS 03/18/2019 ROVENSTINE DO, HERON L Ot Z88.5 ALLERGY STATUS TO NARCOTIC AGENT STATUS 03/18/2019 ROVENSTINE DO, HERON L Ot Z88.8 ALLERGY STATUS TO OTH DRUG/MEDS/BIOL SUB 03/18/2019 ROVENSTINE DO, HERON L Ot Z90.710 ACQUIRED ABSENCE OF BOTH CERVIX AND UTER 03/21/2019 JOHN RESENDIZ, SUSANA Ramachandran Ot F41.9 ANXIETY DISORDER, UNSPECIFIED 03/21/2019 SUSANA LOPEZ MD Ot G43.9 11 MIGRAINE, UNSPECIFIED, INTRACTABLE, WITH 03/21/2019 SUSANA LOPEZ MD Ot R51 HEADACHE 03/21/2019 SUSANA LOPEZ MD Ot Z88.1 ALLERGY STATUS TO OTHER ANTIBIOTIC AGENT 03/21/2019 SUSANA LOPEZ MD Ot Z88.2 ALLERGY STATUS TO SULFONAMIDES STATUS 03/21/2019 SUSANA LOPEZ MD Ot Z88.5 ALLERGY STATUS TO NARCOTIC AGENT STATUS 03/21/2019 SUSANA LOPEZ MD Ot Z88.8 ALLERGY STATUS TO OTH DRUG/MEDS/BIOL SUB 03/21/2019 SUSANA LOPEZ MD Ot Z90.7 10 ACQUIRED ABSENCE OF BOTH CERVIX AND UTER 04/08/2019 NEMO GALINDO MD Ot F41. 9 ANXIETY DISORDER, UNSPECIFIED 04/08/2019 JOSIE RESENDIZ, NEMO A Ot R51 HEADACHE 04/08/2019 JOSIE RESENDIZ, NEMO A Ot Z86. 69 PERSONAL HISTORY OF DIS OF THE NERVOUS S 04/08/2019 EVON GALINDO MDNT A Ot Z88. 1 ALLERGY STATUS TO OTHER ANTIBIOTIC AGENT 04/08/2019 JOSIE ERSENDIZ, NEMO A Ot Z88. 2 ALLERGY STATUS TO SULFONAMIDES STATUS 04/08/2019 JOSIE RESENDIZ, NEMO A Ot Z88. 5 ALLERGY STATUS TO NARCOTIC AGENT STATUS 04/08/2019 JOSIE RESENDIZ, NEMO A Ot Z88. 8 ALLERGY STATUS TO OTH DRUG/MEDS/BIOL SUB 04/08/2019 NEMO GALINDO MD A Ot Z90.710 ACQUIRED ABSENCE OF BOTH CERVIX AND UTER 04/11/2019 NEMO GALINDO MD Ot F41. 9 ANXIETY DISORDER, UNSPECIFIED 04/11/2019 NEMO GALINOD MD A Ot R51 HEADACHE 04/11/2019 NEMO GALINDO MD A Ot Z86. 69 PERSONAL HISTORY OF DIS OF THE NERVOUS S 04/11/2019 NEMO GALINDO MD A Ot Z88. 1 ALLERGY STATUS TO OTHER ANTIBIOTIC AGENT 04/11/2019 JOSIE RESENDIZ, NEMO A Ot Z88. 2 ALLERGY STATUS TO SULFONAMIDES STATUS 04/11/2019 JOSIE RESENDIZ, NEMO A Ot Z88. 5 ALLERGY STATUS TO NARCOTIC AGENT STATUS 04/11/2019 JOSIE RESENDIZ, NEMO A Ot Z88. 8 ALLERGY STATUS TO OTH DRUG/MEDS/BIOL SUB 04/11/2019 JOSIE RESENDIZ, NEMO A Ot Z90.710 ACQUIRED ABSENCE OF BOTH CERVIX AND UTER 04/12/2019 SUSANA LOPEZ MD Ot F41.9 ANXIETY DISORDER, UNSPECIFIED 04/12/2019 SUSANA LOPEZ MD Ot G43.9 09 MIGRAINE, UNSP, NOT INTRACTABLE, WITHOUT 04/12/2019 SUSANA LOPEZ MD Ot R51 HEADACHE 04/12/2019 SUSANA LOPEZ MD Ot Z88.2 ALLERGY STATUS TO SULFONAMIDES STATUS 04/12/2019 SUSANA LOPEZ MD Ot Z88.5 ALLERGY STATUS TO NARCOTIC AGENT STATUS 04/12/2019 JOHN RESENDIZ, SUSANA E Ot Z88.8 ALLERGY STATUS TO OTH DRUG/MEDS/BIOL SUB 04/12/2019 SUSANA LOPEZ MD Ot Z90.7 10 ACQUIRED ABSENCE OF BOTH CERVIX AND UTER 04/15/2019 SUSANA LOPEZ MD Ot F41.9 ANXIETY DISORDER, UNSPECIFIED 04/15/2019 SUSANA LOPEZ MD Ot G43.9 09 MIGRAINE, UNSP, NOT INTRACTABLE, WITHOUT 04/15/2019 SUSANA LOPEZ MD Ot R51 HEADACHE 04/15/2019 SUSANA LOPEZ MD Ot Z88.2 ALLERGY STATUS TO SULFONAMIDES STATUS 04/15/2019 SUSANA LOPEZ MD Ot Z88.5 ALLERGY STATUS TO NARCOTIC AGENT STATUS 04/15/2019 SUSANA LOPEZ MD Ot Z88.8 ALLERGY STATUS TO OTH DRUG/MEDS/BIOL SUB 04/15/2019 SUSANA LOPEZ MD Ot Z90.7 10 ACQUIRED ABSENCE OF BOTH CERVIX AND UTER 04/17/2019 NEMO GALINDO MD A Ot F41. 9 ANXIETY DISORDER, UNSPECIFIED 04/17/2019 JOSIE RESENDIZ, NEMO A Ot R51 HEADACHE 04/17/2019 NEMO GALINDO MD A Ot Z86. 69 PERSONAL HISTORY OF DIS OF THE NERVOUS S 04/17/2019 NEMO GALINDO MD A Ot Z88. 1 ALLERGY STATUS TO OTHER ANTIBIOTIC AGENT 04/17/2019 NEMO GALINDO MD A Ot Z88. 2 ALLERGY STATUS TO SULFONAMIDES STATUS 04/17/2019 JOSIE RESENDIZ, NEMO A Ot Z88. 5 ALLERGY STATUS TO NARCOTIC AGENT STATUS 04/17/2019 JOSIE RESENDIZ, NEMO A Ot Z88. 8 ALLERGY STATUS TO OTH DRUG/MEDS/BIOL SUB 04/17/2019 JOSIE RESENDIZ, NEMO A Ot Z90.710 ACQUIRED ABSENCE OF BOTH CERVIX AND UTER 04/21/2019 NEMO GALINDO MD A Ot F41. 9 ANXIETY DISORDER, UNSPECIFIED 04/21/2019 JOSIE RESENDIZ, NEMO A Ot R51 HEADACHE 04/21/2019 NEMO GALINDO MD A Ot Z86. 69 PERSONAL HISTORY OF DIS OF THE NERVOUS S 04/21/2019 NEMO GALINDO MD A Ot Z88. 1 ALLERGY STATUS TO OTHER ANTIBIOTIC AGENT 04/21/2019 NEMO GALINDO MD A Ot Z88. 2 ALLERGY STATUS TO SULFONAMIDES STATUS 04/21/2019 JOSIE RESENDIZ, NEMO A Ot Z88. 5 ALLERGY STATUS TO NARCOTIC AGENT STATUS 04/21/2019 JOSIE RESENDIZ, NEMO A Ot Z88. 8 ALLERGY STATUS TO OTH DRUG/MEDS/BIOL SUB 04/21/2019 JOSIE RESENDIZ, NEMO A Ot Z90.710 ACQUIRED ABSENCE OF BOTH CERVIX AND UTER 04/24/2019 JOSIE RESENDIZ, NEMO Gottlieb Ot F41. 9 ANXIETY DISORDER, UNSPECIFIED 04/24/2019 JOSIE RESENDIZ, NEMO A Ot R51 HEADACHE 04/24/2019 JOSIE RESENDIZ, NEMO A Ot Z86. 69 PERSONAL HISTORY OF DIS OF THE NERVOUS S 04/24/2019 JOSIE RESENDIZ, NEMO A Ot Z88. 1 ALLERGY STATUS TO OTHER ANTIBIOTIC AGENT 04/24/2019 JOSIE RESEDNIZ, NEMO A Ot Z88. 2 ALLERGY STATUS TO SULFONAMIDES STATUS 04/24/2019 JOSIE RESENDIZ, NEMO A Ot Z88. 5 ALLERGY STATUS TO NARCOTIC AGENT STATUS 04/24/2019 JOSIE RESENDIZ, NEMO A Ot Z88. 8 ALLERGY STATUS TO OTH DRUG/MEDS/BIOL SUB 04/24/2019 JOSIE RESENDIZ, NEMO A Ot Z90.710 ACQUIRED ABSENCE OF BOTH CERVIX AND UTER 05/04/2019 SUSANA LOPEZ MD Ot F41.9 ANXIETY DISORDER, UNSPECIFIED 05/04/2019 SUSANA LOPEZ MD Ot G43.9 09 MIGRAINE, UNSP, NOT INTRACTABLE, WITHOUT 05/04/2019 SUSANA LOPEZ MD E Ot R51 HEADACHE 05/04/2019 SUSANA LOPEZ MD Ot Z88.1 ALLERGY STATUS TO OTHER ANTIBIOTIC AGENT 05/04/2019 SUSANA LOPEZ MD Ot Z88.2 ALLERGY STATUS TO SULFONAMIDES STATUS 05/04/2019 SUSANA LOPEZ MD Ot Z88.5 ALLERGY STATUS TO NARCOTIC AGENT STATUS 05/04/2019 SUSANA LOPEZ MD Ot Z88.8 ALLERGY STATUS TO OTH DRUG/MEDS/BIOL SUB 05/04/2019 SUSANA LOPEZ MD Ot Z90.7 10 ACQUIRED ABSENCE OF BOTH CERVIX AND UTER 05/07/2019 SUSANA LOPEZ MD Ot F41.9 ANXIETY DISORDER, UNSPECIFIED 05/07/2019 SUSANA LOPEZ MD Ot G43.9 09 MIGRAINE, UNSP, NOT INTRACTABLE, WITHOUT 05/07/2019 SUSANA LOPEZ MD Ot R51 HEADACHE 05/07/2019 SUSANA LOPEZ MD Ot Z88.1 ALLERGY STATUS TO OTHER ANTIBIOTIC AGENT 05/07/2019 SUSANA LOPEZ MD Ot Z88.2 ALLERGY STATUS TO SULFONAMIDES STATUS 05/07/2019 SUSANA LOPEZ MD Ot Z88.5 ALLERGY STATUS TO NARCOTIC AGENT STATUS 05/07/2019 SUSANA LOPEZ MD Ot Z88.8 ALLERGY STATUS TO OTH DRUG/MEDS/BIOL SUB 05/07/2019 SUSANA LOPEZ MD Ot Z90.7 10 ACQUIRED ABSENCE OF BOTH CERVIX AND UTER 05/20/2019 CANDI TOM DO B Ot F41. 9 ANXIETY DISORDER, UNSPECIFIED 05/20/2019 CANDI TOM DO B Ot G43.909 MIGRAINE, UNSP, NOT INTRACTABLE, WITHOUT 05/20/2019 CANDI TOM DO B Ot R51 HEADACHE 05/20/2019 CANDI TOM DO B Ot Z88. 1 ALLERGY STATUS TO OTHER ANTIBIOTIC AGENT 05/20/2019 CANDI TOM DO B Ot Z88. 2 ALLERGY STATUS TO SULFONAMIDES STATUS 05/20/2019 CANDI TOM DO B Ot Z88. 5 ALLERGY STATUS TO NARCOTIC AGENT STATUS 05/20/2019 CANDI TOM DO B Ot Z88. 8 ALLERGY STATUS TO OTH DRUG/MEDS/BIOL SUB 05/20/2019 CANDI TOM DO B Ot Z90.710 ACQUIRED ABSENCE OF BOTH CERVIX AND UTER 05/23/2019 CANDI TOM DO B Ot F41. 9 ANXIETY DISORDER, UNSPECIFIED 05/23/2019 CANDI TOM DO B Ot G43.909 MIGRAINE, UNSP, NOT INTRACTABLE, WITHOUT 05/23/2019 CANDI TOM DO B Ot R51 HEADACHE 05/23/2019 CANDI TOM DO B Ot Z88. 1 ALLERGY STATUS TO OTHER ANTIBIOTIC AGENT 05/23/2019 CANDI TOM DO B Ot Z88. 2 ALLERGY STATUS TO SULFONAMIDES STATUS 05/23/2019 CANDI TOM DO B Ot Z88. 5 ALLERGY STATUS TO NARCOTIC AGENT STATUS 05/23/2019 CANDI TOM DO B Ot Z88. 8 ALLERGY STATUS TO OTH DRUG/MEDS/BIOL SUB 05/23/2019 CANDI TOM DO B Ot Z90.710 ACQUIRED ABSENCE OF BOTH CERVIX AND UTER 06/03/2019 JOSIE RESENDIZ, NEMO Gottlieb Ot F41. 9 ANXIETY DISORDER, UNSPECIFIED 06/03/2019 JOSIE RESENDIZ, NEMO A Ot G43.909 MIGRAINE, UNSP, NOT INTRACTABLE, WITHOUT 06/03/2019 JOSIE RESENDIZ, NEMO A Ot R51 HEADACHE 06/03/2019 NEMO GALINDO MD A Ot Z88. 1 ALLERGY STATUS TO OTHER ANTIBIOTIC AGENT 06/03/2019 NEMO GALINDO MD A Ot Z88. 2 ALLERGY STATUS TO SULFONAMIDES STATUS 06/03/2019 NEMO GALINDO MD A Ot Z88. 5 ALLERGY STATUS TO NARCOTIC AGENT STATUS 06/03/2019 JOSIE RESENDIZ, NEMO A Ot Z88. 8 ALLERGY STATUS TO OTH DRUG/MEDS/BIOL SUB 06/03/2019 NEMO GALINDO MD A Ot Z90.710 ACQUIRED ABSENCE OF BOTH CERVIX AND UTER 06/17/2019 HENOK BELTRAN MD Ot F41.9 ANXIETY DISORDER, UNSPECIFIED 06/17/2019 HENOK BELTRAN MD Ot G43.909 MIGRAINE, UNSP, NOT INTRACTABLE, WITHOUT 06/17/2019 HENOK BELTRAN MD Ot R5 1 HEADACHE 06/17/2019 HENOK BELTRAN MD Ot Z88.1 ALLERGY STATUS TO OTHER ANTIBIOTIC AGENT 06/17/2019 HENOK BELTRAN MD Ot Z88.2 ALLERGY STATUS TO SULFONAMIDES STATUS 06/17/2019 HENOK BELTRAN MD Ot Z88.5 ALLERGY STATUS TO NARCOTIC AGENT STATUS 06/17/2019 HENOK BELTRAN MD Ot Z88.8 ALLERGY STATUS TO OTH DRUG/MEDS/BIOL SUB 06/17/2019 HENOK BELTRAN MD Ot Z90.710 ACQUIRED ABSENCE OF BOTH CERVIX AND UTER Procedures There is no data. Results Test Result Range CULTURE, THROAT - 10/12/18 16:56 CULTURE, THROAT SEE NOTE NRG VITAMIN D, 25-H - 11/07/18 19:01 VITAMIN D,25-OH,TOTAL,IA 26 ng/mL 30-10 0 PDM - 09 PANEL (PROFILE 1) - 12/12/18 15 :20 Prescribed Drug 1 Lorazepam NRG Creatinine 20.4 mg/dL > or = 20.0 pH 6.64 4.5 - 9.0 Oxidant NEGATIVE [...] aOH alprazolam CONSISTENT NRG Alphahydroxymidazolam NEGATIVE ng/mL < 50 medMATCH aOH midazolam CONSISTENT NRG Alphahydroxytriazolam NEGATIVE ng/mL < 50 medMATCH aOH triazolam CONSISTENT NRG Aminoclonazepam NEGATIVE ng/mL <25 medMATCH Aminoclonazepam CONSISTENT NRG Hydroxyethylflurazepam NEGATIVE ng/mL <50 medMATCH OH,Et flurazepam CONSISTENT NR G Lorazepam 457 ng/mL <50 medMATCH Lorazepam CONSISTENT [...] Norhydrocodone 282 ng/mL <50 medMATCH Norhydrocodone INCONSISTENT NR G Barbiturates NEGATIVE ng/mL <300 medMATCH Barbiturates CONSISTENT NRG Methadone Metabolite NEGATIVE ng/mL <100 medMATCH Methadone Metab CONSISTENT NRG Phencyclidine NEGATIVE ng/mL <25 medMATCH Phencyclidine CONSISTENT NRG CULTURE, URINE - 01/29/19 18:39 CULTURE, URINE, ROUTINE SEE NOTE NRG TSH w/ FREE T4 - 03/26/19 17:01 TSH 4.06 mIU/L NRG T4, FREE 1.3 ng/dL 0.8-1.8 CULTURE, THROAT - 04/16/19 08:08 CULTURE, THROAT SEE NOTE NRG Encounters ACCT No. Visit Date/Time Discharge Status Pt. Type Provider Facility Loc./Unit Complaint [id number] 06/20/2019 15:30:00 ACT Outpatient WENCESLAO PARIS [facility] [id number] 04/16/2019 07:30:00 Document Registration [id number] 01/29/2019 18:20:00 Document Registration [id number] 12/12/2018 14:15:00 Document Registration [id number] 11/07/2018 17:20:00 Document Registration [id number] 10/25/2018 16:10:00 Document Registration [id number] 10/12/2018 16:20:00 Document Registration [id number] 06/23/2018 04:07:00 ACT Unknown [facility] [id number] 06/22/2018 22:07:00 ACT Unknown [facility]G WIGGINS [facility] [id number] 03/24/2018 19:16:00 [facility] [id number] 01/09/2017 18:47:00 ACT Unknown REDD GASTELUM [facility] NSER HEADACHE [id number] 01/07/2017 21:26:00 ACT Unknown Alma Rosa ADEN [facility] NSER HEADACHE [id number] 06/24/2016 20:12:00 ACT Unknown [facility] NSER HEADACHE [id number] 06/26/2015 20:27:00 ACT Unknown ELFEGO LLANESAngelito Zuniga [id number] 06/15/2019 00:15:00 00:48:00 DIS Outpatient HENOK BELTRAN MD [facility] ER FS HEADACHE/NAUSEA/VOMITTI NG [id number] 05/30/2019 17:25:00 18:36:00 DIS Outpatient NEMO GALINDO MD [facility] ER FS MIGRAINE [id number] 05/27/2019 18:38:00 19:28:00 DIS Emergency HENOK BELTRAN MD [facility] ER FS MIGRAINE SYMPTOMS [id number] 05/20/2019 18:38:00 19:20:00 DIS Emergency CANDI TOM DO [facility] ER FS HEADACHE [id number] 05/16/2019 18:57:00 19:30:00 DIS Emergency ROVENSTHERON SILVERMAN DO [facility] ER FS MIGRAINE [id number] 05/04/2019 22:14:00 23:07:00 DIS Emergency SUSANA LOPEZ MD [facility] ER FS MIGRAINE [id number] 04/21/2019 01:30:00 01:54:00 DIS Emergency JOSIE RESENDIZ, NEMO Gottlieb [facility] ER FS HEADACHE,COUGH [id number] 04/12/2019 03:14:00 03:52:00 DIS Emergency SUSANA LOPEZ MD Via [facility] FS MIGRAINE SYMPTOMS [id number] 04/08/2019 00:35:00 01:59:00 DIS Emergency JOSIE RESENDIZ, NEMO Gottlieb [facility] ER FS MIGRAINE [id number] 03/19/2019 01:52:00 03:48:00 DIS Outpatient SUSANA LOPEZ MD [facility] ER FS SEVERE MIGRAINE [id number] 03/14/2019 16:52:00 17:38:00 DIS Emergency ROVENSTANDRA ARAGON HERON Alyce [facility] ER FS HEADACHE [id number] 01/30/2019 11:34:00 13:44:00 DIS Emergency SUSANA LOPEZ MD [facility] ER FS HEADACHE; VOMITING [id number] 01/01/2019 10:21:00 11:30:00 DIS Emergency TRISTEN LANDRY DO [facility] ER FS HEADACHE [id number] 12/23/2018 18:47:00 20:51:00 DIS Emergency VERONICA LORA DO [facility] ER FS MIGRAINE [id number] 2018 15:36:00 16:30:00 DIS Emergency KATIA LIRIANO DO [facility] ER FS MIGRAINE;NAUSEA;VOMITIN G [id number] 10/31/2018 16:57:00 18:30:00 DIS Emergency JUSTIN RESENDIZ, JAXSON Mejia [facility] ER FS HEADACHE [id number] 10/24/2018 15:25:00 23:59:59 CLS Outpatient RAINA RESENDIZ, WENCESLAO Medina [facility] RAD FS [id number] 08/22/2018 09:55:00 12:18:00 DIS Emergency FARHAT RESENDIZ, SABINA gottlieb [facility] ER FS HEADACHE [id number] 08/21/2018 21:49:00 00:46:00 DIS Emergency JOEL ELLIOTT DO [facility] ER FS MIGRAINE, NAUSEA, SENSI TIVE TO LIGHT AND SMELLS
== END 2019-05-27 19:28 | disposition home or self-care (01) ==
LOC: EDUNIT# 18:37 → ER FS 18:38
DX: G43.909 Migraine, unspecified, not intractable, without status migrainosus (principal); F41.9 Anxiety disorder, unspecified; Z88.2 Allergy status to sulfonamides; Z88.1 Allergy status to other antibiotic agents; Z88.5 Allergy status to narcotic agent; Z88.8 Allergy status to other drugs, medicaments and biological substances; Z90.710 Acquired absence of both cervix and uterus
CPT/HCPCS: 96372; 99284

== ENCOUNTER 2019-05-30 17:23 | Emergency (ER) | payer MEDICARE, OTHER ==
[~2019-05-30] VITALS: Ht 170 cm; Wt 69.9 kg
--- NOTE | 2019-05-30 18:27 | ED Headache ---
General Chief Complaint: Head/Cervical Problems Stated Complaint: MIGRAINE Nursing Triage Note: PT REPORTS SHE HAS HAD A HEADACHE FOR THE LAST COUPLE OF HOURS THAT CAME ON STRONG THIS AM. SHE HAS NOT TAKEN ANYTHING AT HOME FOR PAIN. SHE REPORTS SOME VOMITING. 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 Nursing Sepsis Screen: No Definite Risk Source: patient Exam Limitations: no limitations History of Present Illness Date Seen by Provider: May 30, 2019 Time Seen by Provider: 18:25 Initial Comments Patient complains of severe left sided migraine headache. It is throbbing in nature. It has been present for the past several hours. It is associated with nausea and vomiting and photophobia. History of migraines and frequent ER visits for same. This feels like a typical migraine. Allergies and Home Medications Allergies Coded Allergies: Sulfa (Sulfonamide Antibiotics) (Verified Allergy, Mild, Itching, 03/14/19) cefuroxime (Verified Allergy, Unknown, 08/21/18) haloperidol (Verified Allergy, Unknown, 10/31/18) magnesium (Verified Allergy, Unknown, 08/21/18) prochlorperazine (Verified Allergy, Unknown, rash, 08/21/18) topiramate (Verified Allergy, Unknown, 08/21/18) tramadol (Verified Allergy, Unknown, 10/31/18) Uncoded Allergies: DHE (Allergy, Unknown, 10/31/18) Home Medications Cyclobenzaprine HCl 10 Mg Tablet, 10 MG PO Q8H PRN for SPASMS Prescribed by: JAXSON ANDERSON on 10/31/18 1810 Patient Home Medication List Home Medication List Reviewed: Yes Review of Systems Review of Systems Constitutional: no symptoms reported Eyes: Photophobia Respiratory: no symptoms reported Cardiovascular: no symptoms reported Gastrointestinal: nausea, vomiting Musculoskeletal: no symptoms reported Psychiatric/Neurological: Headache All Other Systems Reviewed Negative Unless Noted: Yes Past Ulbemea-Utdhvx-Frjehb Hx Patient Social History Alcohol Use: Denies Use Recreational Drug Use: No 2nd Hand Smoke Exposure: No Recent Foreign Travel: No Contact w/Someone Who Travel: No Recent Infectious Disease Expo: No Recent Hopitalizations: No Physical Abuse: No Sexual Abuse: No Mistreated: No Fear: No Seasonal Allergies Seasonal Allergies: No Past Medical History Surgeries: Yes 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 Respiratory: No Cardiac: No 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 oz. 70.491280zz; 24.00 BMI Method:Stated General Appearance: WD/WN, mild distress (laying in dark rooom with sunglasses on) HEENT: PERRL/EOMI, pharynx normal Neck: supple Cardiovascular: regular rate, rhythm Respiratory: lungs clear Gastrointestinal: soft Extremities: normal range of motion Psychiatric: alert, oriented x 3 Crainal Nerves: normal hearing, normal speech, PERRL Coordination/Gait: normal gait Skin: normal color, warm/dry Progress/Results/Core Measures Results/Orders My Orders Orders - NEMO GALINDO MD Ketorolac Injection (Toradol Injection) (05/30/19 18:30) Diphenhydramine Injection (Benadryl Inje (05/30/19 18:30) Promethazine Injection (Phenergan Injec (05/30/19 18:30) Vital Signs/I&O 05/30/19 17:30 Temp 36.7 Pulse 86 Resp 18 B/P (MAP) 123/75 (91) O2 Delivery Room Air Blood Pressure Mean: 91 POS Departure Impression Primary Impression: Headache Disposition: 01 HOME, SELF-CARE Condition: Stable Departure-Patient Inst. Decision time for Depature: 18:27 Referrals: WENCESLAO PARIS MD (PCP/Family) Primary Care Physician Patient Instructions: Headache, Adult (DC) Add. Discharge Instructions: Rest in dark quiet room tonight. Tylenol for a residual headache. All discharge instructions reviewed with patient and/or family. Voiced understanding. NEMO GALINDO MD May 30, 2019 18:27 POS
[2019-05-30] MEDS ORDERED: PROMETHAZINE INJ 25 MG/ML (PHENERGAN) AMP IM ONE (18:30)
[2019-05-30] MEDS ORDERED: KETOROLAC 60 MG/2 ML VIAL IM ONE (18:30)
[2019-05-30] MEDS ORDERED: diphenhydrAMINE 50 MG/ML INJ (BENADRYL) IM ONE (18:30)
[2019-05-30 18:36] VITALS: BP 123/75
--- OUTSIDE RECORDS SUMMARY | 2019-06-26 02:49 | XMS REPORT | Continuity of Care Document ---
Author Organization Unknown Address Unknown Phone Unavailable Allergies Active Description Code Type Severity Reaction Onset Reported/Identified Relationship to Patient Clinical Status Yes Sulfa (Sulfonamides) 491 Unknown N/A 06/24/2016 Yes Ceftin 3716 Unknown N/A 03/24/2018 Yes Compazine 3622 Unknown N/A 03/24/2018 Yes Magnesium 784 Unknown N/A 03/24/2018 Yes Topamax 63785 Unknown N/A 03/24/2018 Yes SULFA SULFA Mild itchy 08/21/2018 Yes cefuroxime [id number] Drug Allerg y Unknown N/A 08/21/2018 Yes magnesium [id number] Drug Allergy Unknown N/A 08/21/2018 Yes No Known Drug Allergies [id number] Drug Allergy Unknown N/A 08/21/2018 Yes prochlorperazine [id number] Drug Allergy Unknown rash 08/21/2018 Yes topiramate [id number] Drug Allerg y Unknown N/A 08/21/2018 Yes DHE DHE Unknown N/A 10/31/2018 Yes haloperidol [id number] Drug Aller gy Unknown N/A 10/31/2018 Yes tramadol [id number] Drug Allergy Unknown N/A 10/31/2018 Yes Sulfa (Sulfonamide Antibiotics) A67895 0491 Drug Allergy Mild Itching 019 Medications [...] AURA, NOT INTRACTABLE, WITHOUT STATUS [facility]RAIN[facility]809 OTHER MIGRAINE, NOT INTRACTABLE, WITHOUT STATUS MIGRAI NOSUS 07/18/2018 [facility] A R51 HEADACHE 08/22/2018 EARL ARAGON [...] G43.909 MIGRAINE, UNSP, NOT INTRACTABLE, WITHOUT 2018 KATAI LIRIANO DO Ot R5 1 HEADACHE 2018 [...] STATUS TO OTHER ANTIBIOTIC AGENT 04/08/2019 JOSIE RESENDIZ, NEMO A Ot Z88. [...] F41. 9 ANXIETY DISORDER, UNSPECIFIED 04/11/2019 NEMO GALINDO MD A Ot R51 HEADACHE 04/11/2019 NEMO [...] STATUS TO OTHER ANTIBIOTIC AGENT 04/24/2019 JOSIE RESENDIZ, NEMO A Ot Z88. 2 [...] STATUS TO NARCOTIC AGENT STATUS 05/07/2019 SUSANA LOPZE MD Ot Z88.8 ALLERGY STATUS TO OTH [...] ACQUIRED ABSENCE OF BOTH CERVIX AND UTER 05/30/2019 JOSIE RESENDIZ, NEMO A Ot F41. 9 ANXIETY DISORDER, UNSPECIFIED 05/30/2019 JOSIE RESENDIZ, NEMO A Ot G43.909 MIGRAINE, UNSP, NOT INTRACTABLE, WITHOUT 05/30/2019 JOSIE RESENDIZ, NEMO A Ot R51 HEADACHE 05/30/2019 JOSIE RESENDIZ, NEMO A Ot Z88. 1 ALLERGY STATUS TO OTHER ANTIBIOTIC AGENT 05/30/2019 EVON GALINDO MDNT A Ot Z88. 2 ALLERGY STATUS TO SULFONAMIDES STATUS 05/30/2019 JOSIE RESENDIZ, NEMO A Ot Z88. 5 ALLERGY STATUS TO NARCOTIC AGENT STATUS 05/30/2019 JOSIE RESENDIZ, NEMO A Ot Z88. 8 ALLERGY STATUS TO OTH DRUG/MEDS/BIOL SUB 05/30/2019 JOSIE RESENDIZ, NEMO A Ot Z90.710 ACQUIRED ABSENCE OF BOTH CERVIX AND UTER 06/03/2019 NEMO GALINDO MD Ot F41. 9 ANXIETY DISORDER, UNSPECIFIED 06/03/2019 NEMO GALINDO MD A Ot G43.909 MIGRAINE, UNSP, NOT INTRACTABLE, WITHOUT 06/03/2019 JOSIE RESENDIZ NEMO A Ot R51 HEADACHE 06/03/2019 EVON GALINDO MDNT A Ot Z88. 1 ALLERGY STATUS TO OTHER ANTIBIOTIC AGENT 06/03/2019 JOSIE RESENDIZ NEMO A Ot Z88. 2 ALLERGY STATUS TO SULFONAMIDES STATUS 06/03/2019 JOSIE RESENDIZ NEMO A Ot Z88. 5 ALLERGY STATUS TO NARCOTIC AGENT STATUS 06/03/2019 JOSIE RESENDIZ NEMO A Ot Z88. 8 ALLERGY STATUS TO OTH DRUG/MEDS/BIOL SUB 06/03/2019 JOSIE RESENDIZ, NEMO A Ot Z90.710 ACQUIRED ABSENCE OF BOTH CERVIX AND UTER 06/17/2019 DEVIN RESENDIZ, HENOK Mead Ot F41.9 ANXIETY DISORDER, UNSPECIFIED 06/17/2019 HENOK BELTRAN MD Ot G43.909 MIGRAINE, UNSP, NOT INTRACTABLE, WITHOUT 06/17/2019 HENOK BELTRAN MD Ot R5 1 HEADACHE 06/17/2019 HENOK BELTRAN MD L Ot Z88.1 ALLERGY STATUS TO OTHER ANTIBIOTIC AGENT 06/17/2019 HENOK BELTRAN MD L Ot Z88.2 ALLERGY STATUS TO SULFONAMIDES STATUS 06/17/2019 HENOK BELTRAN MD L Ot Z88.5 ALLERGY STATUS TO NARCOTIC AGENT STATUS 06/17/2019 HENOK BETLRAN MD L Ot Z88.8 ALLERGY STATUS TO OTH DRUG/MEDS/BIOL SUB 06/17/2019 DEVIN RESENDIZ, HENOK Mead Ot Z90.710 ACQUIRED ABSENCE OF BOTH CERVIX [...] Status Pt. Type Provider Facility Loc./Unit Complaint [id number] 06/20/2019 15:30:00 06/20/2019 23:59: 59 [facility] Outpatient WENCSELAO PARIS [facility] [id number] 04/16/2019 07:30:00 Document Registration [id number] 01/29/2019 18:20:00 Document Registration [id number] 12/12/2018 14:15:00 Document Registration [id number] 11/07/2018 17:20:00 Document Registration [id number] 10/25/2018 16:10:00 Document Registration [id number] 10/12/2018 16:20:00 Document Registration [id number] 06/23/2018 04:07:00 ACT Unknown KALAMAZOO TRUNG [facility] NSER HEADACHE [id number] 06/22/2018 22:07:00 ACT [facility] [id number] 03/24/2018 19:16:00 ACT Unknown NEW LUBINDAVID [facility] NSER HEADACHE [id number] 01/09/2017 18:47:00 ACT Unknown REDD GASTELUM [facility] NSER HEADACHE [id number] 01/07/2017 21:26:00 ACT Unknown Alma Rosa ADEN [facility] NSER HEADACHE [id number] 06/24/2016 20:12:00 ACT Unknown LEIDA AKHTAR [facility] NSER HEADACHE [id number] 06/26/2015 20:27:00 ACT Unknown JC LLANES [id number] 06/15/2019 00:15:00 00:48:00 DIS Outpatient DEVIN RESENDIZ, HENOK Mead [facility] FS HEADACHE/NAUSEA/VOMITTI NG [id number] 05/30/2019 17:25:00 18:36:00 DIS Emergency JOSIE RESENDIZ, NEMO Gottlieb [facility] FS MIGRAINE [id number] 05/27/2019 18:38:00 19:28:00 DIS Emergency HENOK BELTRAN MD [facility] FS MIGRAINE SYMPTOMS [id number] 05/20/2019 18:38:00 19:20:00 DIS Emergency CANDI TOM DO [facility] FS HEADACHE [id number] 05/16/2019 18:57:00 19:30:00 DIS Emergency ROVENSTHERON SILVERMAN DO [facility] FS MIGRAINE [id number] 05/04/2019 22:14:00 23:07:00 DIS Emergency SUSANA LOPEZ MD [facility] FS MIGRAINE [id number] 04/21/2019 01:30:00 01:54:00 DIS Emergency JOSIE RESENDIZ, NEMO Gottlieb [facility] FS HEADACHE,COUGH [id number] 04/12/2019 03:14:00 03:52:00 DIS Emergency SUSANA LOPEZ MD [facility] FS MIGRAINE SYMPTOMS [id number] 04/08/2019 00:35:00 01:59:00 DIS Emergency JOSIE RESENDIZ, NEMO Gottlieb [facility] FS MIGRAINE [id number] 03/19/2019 01:52:00 03:48:00 DIS Outpatient SUSANA LOPEZ MD [facility] FS SEVERE MIGRAINE [id number] 03/14/2019 16:52:00 17:38:00 DIS Emergency ROVENSTHERON SILVERMAN DO [facility] FS HEADACHE [id number] 01/30/2019 11:34:00 13:44:00 DIS Emergency JOHN RESENDIZ, SUSANA Ramachandran [facility] FS HEADACHE; VOMITING [id number] 01/01/2019 10:21:00 11:30:00 DIS Emergency FRANTZ TRISTEN [facility] FS HEADACHE [id number] 12/23/2018 18:47:00 20:51:00 DIS Emergency GUIDO DOVERONICA [facility] FS MIGRAINE [id number] 2018 15:36:00 16:30:00 DIS Emergency KATIA LIRIANO DO [facility] FS MIGRAINE;NAUSEA;VOMITIN G [id number] 10/31/2018 16:57:00 18:30:00 DIS Emergency JUSTIN RESENDIZ, JAXSON Mejia [facility] FS HEADACHE [id number] 10/24/2018 15:25:00 23:59:59 CLS Outpatient RAINA RESENDIZ, WENCESLAO Medina [facility] FS M54.41 [id number] 08/22/2018 09:55:00 12:18:00 DIS Emergency FARHAT RESENDIZ, SABINA gottlieb [facility] FS HEADACHE [id number] 08/21/2018 21:49:00 00:46:00 DIS Emergency JOEL ELLIOTT DO [facility] FS MIGRAINE, NAUSEA, SENSI TIVE TO LIGHT AND SMELLS
== END 2019-05-30 18:36 | disposition home or self-care (01) ==
LOC: EDUNIT# 17:23 → ER FS 17:25
DX: R51 Headache (principal); G43.909 Migraine, unspecified, not intractable, without status migrainosus; F41.9 Anxiety disorder, unspecified; Z90.710 Acquired absence of both cervix and uterus; Z88.2 Allergy status to sulfonamides; Z88.5 Allergy status to narcotic agent; Z88.8 Allergy status to other drugs, medicaments and biological substances; Z88.1 Allergy status to other antibiotic agents
CPT/HCPCS: 96372; 99284

== ENCOUNTER 2019-06-15 00:13 | Emergency (ER) | payer MEDICARE, OTHER ==
[~2019-06-15] VITALS: Ht 170 cm; Wt 70.0 kg
--- NOTE | 2019-06-15 00:44 | ED Headache ---
General Chief Complaint: Head/Cervical Problems Stated Complaint: HEADACHE/NAUSEA/VOMITTING Nursing Triage Note: PT COMPLAINING OF A MIGRAINE. PT STATES SHE HAS TAKEN IBUPROFEN, BENADRYL, AND ATIVAN EARLIER IN THE DAY AT HOME WITH NO RELIEF Nursing Sepsis Screen: No Definite Risk History of Present Illness Date Seen by Provider: Jun 15, 2019 Time Seen by Provider: 00:20 Initial Comments here with urena. very common with multiple visits and meds.....not any different this time around. is under seasonal stress. no hx of illness. no f/c has had n/v Timing/Duration: 4-6 hours Severity/Quality: moderate Location: frontal Prior Headaches/Recent Trauma: frequent headaches Modifying Factors: improves with medication Associated Symptoms: No confusion, No facial pain; nausea/vomiting; No stiff neck, No vision changes Allergies and Home Medications Allergies Coded Allergies: Sulfa (Sulfonamide Antibiotics) (Verified Allergy, Mild, Itching, 03/14/19) cefuroxime (Verified Allergy, Unknown, 08/21/18) haloperidol (Verified Allergy, Unknown, 10/31/18) magnesium (Verified Allergy, Unknown, 08/21/18) prochlorperazine (Verified Allergy, Unknown, rash, 08/21/18) topiramate (Verified Allergy, Unknown, 08/21/18) tramadol (Verified Allergy, Unknown, 10/31/18) Uncoded Allergies: DHE (Allergy, Unknown, 10/31/18) Home Medications Cyclobenzaprine HCl 10 Mg Tablet, 10 MG PO Q8H PRN for SPASMS Prescribed by: JAXSON ANDERSON on 10/31/18 1810 Patient Home Medication List Home Medication List Reviewed: Yes Review of Systems Review of Systems Constitutional: No dizziness, No fever Eyes: Denies Blurred Vision; Photophobia; Denies Vision Changes Ears, Nose, Mouth, Throat: denies nose discharge, denies mouth pain, denies throat pain, denies throat swelling Respiratory: No cough, No wheezing Cardiovascular: no symptoms reported Gastrointestinal: No abdominal pain; nausea, vomiting Musculoskeletal: No muscle pain, No neck pain Skin: No lesions, No rash Psychiatric/Neurological: Denies Anxiety, Denies Depressed Past Ghrjhqu-Djqivm-Qakupx Hx Past Med/Social Hx: Reviewed Nursing Past Med/Soc Hx Patient Social History Alcohol Use: Denies Use Recreational Drug Use: No Smoking Status: Never a Smoker 2nd Hand Smoke Exposure: No Recent Foreign Travel: No Contact w/Someone Who Travel: No Recent Infectious Disease Expo: No Recent Hopitalizations: No Physical Abuse: No Sexual Abuse: No Mistreated: No Seasonal Allergies Seasonal Allergies: No Past Medical History Surgeries: Yes 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 Respiratory: No Cardiac: No Neurological: Yes 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 oz. 70.325391ka; 24.00 BMI Method:Stated General Appearance: WD/WN, mild distress HEENT: PERRL/EOMI, TMs normal, pharynx normal Neck: non-tender, full range of motion, supple Cardiovascular: regular rate, rhythm, no murmur Respiratory: normal breath sounds, no respiratory distress; No respiratory distress Gastrointestinal: non tender, soft, no organomegaly Extremities: normal range of motion, non-tender Psychiatric: alert, oriented x 3 Motor/Sensory: no motor deficit, no sensory deficit Skin: normal color, warm/dry Lymphatic: no adenopathy Progress/Results/Core Measures Results/Orders My Orders Orders - HENOK BELTRAN JR, MD Ketorolac Injection (Toradol Injection) (06/15/19 00:45) Diphenhydramine Injection (Benadryl Inje (06/15/19 00:45) Promethazine Injection (Phenergan Injec (06/15/19 00:45) Vital Signs/I&O 06/15/19 00:22 Temp 36.4 Pulse 78 Resp 16 B/P (MAP) 140/70 (93) Pulse Ox 99 O2 Delivery Room Air Blood Pressure Mean: 93 Departure Impression Primary Impression: Migraine Qualified Codes: G43.009 - Migraine without aura, not intractable, without status migrainosus Disposition: 01 HOME, SELF-CARE Condition: Improved Departure-Patient Inst. Referrals: WENCESLAO PARIS MD (PCP/Family) Primary Care Physician Patient Instructions: Migraine Headaches in Adults HENOK BELTRAN JR, MD Jun 15, 2019 00:44
[2019-06-15] MEDS ORDERED: PROMETHAZINE INJ 25 MG/ML (PHENERGAN) AMP IM ONE (00:45)
[2019-06-15] MEDS ORDERED: diphenhydrAMINE 50 MG/ML INJ (BENADRYL) IM ONE (00:45)
[2019-06-15] MEDS ORDERED: KETOROLAC 30 MG/ML VIAL IM ONE (00:45)
[2019-06-15 00:47] VITALS: BP 140/70
== END 2019-06-15 00:48 | disposition home or self-care (01) ==
LOC: EDUNIT# 00:13 → ER FS 00:15
DX: G43.909 Migraine, unspecified, not intractable, without status migrainosus (principal); F41.9 Anxiety disorder, unspecified; Z88.2 Allergy status to sulfonamides; Z88.1 Allergy status to other antibiotic agents; Z88.5 Allergy status to narcotic agent; Z88.8 Allergy status to other drugs, medicaments and biological substances; Z90.710 Acquired absence of both cervix and uterus
CPT/HCPCS: 96372; 99284

== ENCOUNTER 2019-06-24 18:41 | Emergency (ER) | payer MEDICARE, OTHER ==
[~2019-06-24] VITALS: Ht 170 cm; Wt 70.5 kg
--- NOTE | 2019-06-24 19:00 | ED Headache ---
General Chief Complaint: Head/Cervical Problems Stated Complaint: MIGRAINE, N/V Source: patient Exam Limitations: no limitations History of Present Illness Date Seen by Provider: Jun 24, 2019 Time Seen by Provider: 18:55 Initial Comments Patient complains of typical migraine headache and left sided throbbing associated with photophobia since this morning. She took several medicines at home without relief. She started vomiting and came here for evaluation. No head injury. Multiple ER visits for same in past. Allergies and Home Medications Allergies Coded Allergies: Sulfa (Sulfonamide Antibiotics) (Verified Allergy, Mild, Itching, 03/14/19) cefuroxime (Verified Allergy, Unknown, 08/21/18) haloperidol (Verified Allergy, Unknown, 10/31/18) magnesium (Verified Allergy, Unknown, 08/21/18) prochlorperazine (Verified Allergy, Unknown, rash, 08/21/18) topiramate (Verified Allergy, Unknown, 08/21/18) tramadol (Verified Allergy, Unknown, 10/31/18) Uncoded Allergies: DHE (Allergy, Unknown, 10/31/18) Home Medications Cyclobenzaprine HCl 10 Mg Tablet, 10 MG PO Q8H PRN for SPASMS Prescribed by: JAXSON ANDERSON on 10/31/18 1810 Patient Home Medication List Home Medication List Reviewed: Yes Review of Systems Review of Systems Constitutional: no symptoms reported Eyes: Photophobia Ears, Nose, Mouth, Throat: no symptoms reported Respiratory: no symptoms reported Cardiovascular: no symptoms reported Gastrointestinal: nausea, vomiting Genitourinary: no symptoms reported Musculoskeletal: no symptoms reported Skin: no symptoms reported Psychiatric/Neurological: Headache Past Hhfnwuq-Hyursv-Ddjrcg Hx Patient Social History 2nd Hand Smoke Exposure: No Recent Hopitalizations: No Seasonal Allergies Seasonal Allergies: No Past Medical History Surgeries: Yes 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 Respiratory: No Cardiac: No Neurological: Yes Headaches /Migraines 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 oz. 70.350870dq; 24.00 BMI Method:Stated General Appearance: WD/WN, mild distress HEENT: PERRL/EOMI, pharynx normal Neck: supple Cardiovascular: regular rate, rhythm, no edema Respiratory: lungs clear, normal breath sounds Gastrointestinal: non tender, soft Extremities: normal inspection Psychiatric: alert, oriented x 3 Crainal Nerves: normal hearing, normal speech, PERRL Coordination/Gait: normal gait Motor/Sensory: no motor deficit Skin: normal color, warm/dry Progress/Results/Core Measures Results/Orders My Orders Orders - NEMO GALINDO MD Ketorolac Injection (Toradol Injection) (06/24/19 19:15) Promethazine Injection (Phenergan Injec (06/24/19 19:15) Diphenhydramine Injection (Benadryl Inje (06/24/19 19:15) Vital Signs/I&O 06/24/19 18:51 Temp 36.7 Pulse 104 Resp 16 B/P (MAP) 118/79 (92) Pulse Ox 100 Departure Impression Primary Impression: Headache Disposition: 01 HOME, SELF-CARE Condition: Stable Departure-Patient Inst. Referrals: WENCESLAO PARIS MD (PCP/Family) Primary Care Physician Patient Instructions: Headache, Child (DC) Add. Discharge Instructions: Rest in quiet dark room tonight. Tylenol for additional headache. Speak with her doctor after the New Year's to discuss management of your frequent headaches. All discharge instructions reviewed with patient and/or family. Voiced understanding. NEMO GALINDO MD Jun 24, 2019 19:00
[2019-06-24] MEDS ORDERED: KETOROLAC 60 MG/2 ML VIAL IM ONE (19:15)
[2019-06-24] MEDS ORDERED: diphenhydrAMINE 50 MG/ML INJ (BENADRYL) IM ONE (19:15)
[2019-06-24] MEDS ORDERED: PROMETHAZINE INJ 25 MG/ML (PHENERGAN) AMP IM ONE (19:15)
[2019-06-24 19:38] VITALS: BP 118/79
== END 2019-06-24 19:38 | disposition home or self-care (01) ==
LOC: EDUNIT# 18:41 → ER FS 18:43
DX: R51 Headache (principal); F41.9 Anxiety disorder, unspecified; Z88.2 Allergy status to sulfonamides; Z86.69 Personal history of other diseases of the nervous system and sense organs; Z88.1 Allergy status to other antibiotic agents; Z88.5 Allergy status to narcotic agent; Z88.8 Allergy status to other drugs, medicaments and biological substances; Z90.710 Acquired absence of both cervix and uterus
CPT/HCPCS: 96372; 99284

== ENCOUNTER 2019-06-24 23:57 | Emergency (ER) | payer MEDICARE, OTHER ==
[~2019-06-24] VITALS: Ht 170.1 cm; Wt 70.4 kg
--- NOTE | 2019-06-25 00:12 | ED Headache ---
General Chief Complaint: Head/Cervical Problems Stated Complaint: MIGRAINE Source: patient Exam Limitations: no limitations History of Present Illness Date Seen by Provider: Jun 25, 2019 Time Seen by Provider: 00:09 Initial Comments Patient was seen by me about 6 hours ago. Please refer to previous ED note. She complains of left-sided migraine headache (throbbing severe) associated with nausea vomiting and photophobia. She experienced relief in earlier ER visit after injections of Toradol and Phenergan and Benadryl intramuscularly but it came back. She has been retching for the past several hours. Allergies and Home Medications Allergies Coded Allergies: Sulfa (Sulfonamide Antibiotics) (Verified Allergy, Mild, Itching, 03/14/19) cefuroxime (Verified Allergy, Unknown, 08/21/18) haloperidol (Verified Allergy, Unknown, 10/31/18) magnesium (Verified Allergy, Unknown, 08/21/18) prochlorperazine (Verified Allergy, Unknown, rash, 08/21/18) topiramate (Verified Allergy, Unknown, 08/21/18) tramadol (Verified Allergy, Unknown, 10/31/18) Uncoded Allergies: DHE (Allergy, Unknown, 10/31/18) Home Medications Cyclobenzaprine HCl 10 Mg Tablet, 10 MG PO Q8H PRN for SPASMS Prescribed by: JAXSON ANDERSON on 10/31/18 181 Patient Home Medication List Home Medication List Reviewed: Yes Review of Systems Review of Systems Constitutional: malaise Eyes: Photophobia Ears, Nose, Mouth, Throat: no symptoms reported Respiratory: no symptoms reported Cardiovascular: no symptoms reported Gastrointestinal: vomiting Musculoskeletal: no symptoms reported Skin: no symptoms reported Psychiatric/Neurological: Headache All Other Systems Reviewed Negative Unless Noted: Yes Past Qqggsxr-Qgmcpw-Iiwguv Hx Patient Social History 2nd Hand Smoke Exposure: No Recent Foreign Travel: No Contact w/Someone Who Travel: No Recent Hopitalizations: No Seasonal Allergies Seasonal Allergies: No Past Medical History Surgeries: Yes 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 Respiratory: No Cardiac: No Neurological: Yes Headaches /Migraines 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 oz. 70.278207pw; 24.00 BMI Method:Stated General Appearance: WD/WN, moderate distress (curled up on the stretcher wearing sunglasses in a dark room.) HEENT: PERRL/EOMI, pharynx normal Neck: supple Cardiovascular: regular rate, rhythm Respiratory: no respiratory distress Gastrointestinal: soft Extremities: normal inspection Psychiatric: alert, oriented x 3 Crainal Nerves: normal hearing, normal speech Coordination/Gait: normal gait Motor/Sensory: no motor deficit Skin: normal color, warm/dry Progress/Results/Core Measures Results/Orders My Orders Orders - NEMO GALINDO MD Ketorolac Injection (Toradol Injection) (06/25/19 00:15) Promethazine Injection (Phenergan Injec (06/25/19 00:15) Diphenhydramine Injection (Benadryl Inje (06/25/19 00:15) Medications Given in ED Current Medications Medications Dose Ordered Sig/Shell Route Start Time Stop Time Status Last Admin Dose Admin Diphenhydramine HCl 50 mg ONCE ONCE IM 06/25/19 00:15 06/25/19 00:16 DC 06/25/19 00:23 50 MG Ketorolac Tromethamine 60 mg ONCE ONCE IM 06/25/19 00:15 06/25/19 00:16 DC 06/25/19 00:22 60 MG Promethazine HCl 50 mg ONCE ONCE IM 06/25/19 00:15 06/25/19 00:16 DC 06/25/19 00:22 50 MG Vital Signs/I&O 06/25/19 00:03 Temp 36.7 Pulse 70 Resp 16 B/P (MAP) 123/74 (90) O2 Delivery Room Air Departure Communication (Admissions) Feels better after medications. Ready to go home. Stable for discharge. Impression Primary Impression: Headache Disposition: 01 HOME, SELF-CARE Condition: Stable Departure-Patient Inst. Referrals: WENCESLAO PARIS MD (PCP/Family) Primary Care Physician Patient Instructions: Headache, Adult (DC) Add. Discharge Instructions: Resting quiet dark room. Take Tylenol for residual headache. See your doctor later this week for follow-up All discharge instructions reviewed with patient and/or family. Voiced understanding. NEMO GALINDO MD Jun 25, 2019 00:12
--- NOTE | 2019-06-25 00:14 | NUR ---
PT. WAS LYING ON THE WAITING ROOM FLOOR. SHE IS WEARING SUN GLASSES AND A HOODIE OVER HER FACE.
[2019-06-25] MEDS ORDERED: KETOROLAC 60 MG/2 ML VIAL IM ONE (00:15)
[2019-06-25] MEDS ORDERED: PROMETHAZINE INJ 25 MG/ML (PHENERGAN) AMP IM ONE (00:15)
[2019-06-25] MEDS ORDERED: diphenhydrAMINE 50 MG/ML INJ (BENADRYL) IM ONE (00:15)
[2019-06-25 00:46] VITALS: BP 123/74
== END 2019-06-25 00:47 | disposition home or self-care (01) ==
LOC: EDUNIT# 23:57 → ER FS 06-25
DX: R51 Headache (principal); F41.9 Anxiety disorder, unspecified; Z88.2 Allergy status to sulfonamides; Z88.1 Allergy status to other antibiotic agents; Z88.5 Allergy status to narcotic agent; Z88.8 Allergy status to other drugs, medicaments and biological substances; Z90.710 Acquired absence of both cervix and uterus; Z86.69 Personal history of other diseases of the nervous system and sense organs
CPT/HCPCS: 96372; 99284

== ENCOUNTER 2019-08-03 19:28 | Emergency (ER) | payer MEDICARE, OTHER ==
[~2019-08-03] VITALS: Ht 170.1 cm; Wt 70.5 kg
--- NOTE | 2019-08-03 20:31 | ED Headache ---
General Chief Complaint: Head/Cervical Problems Stated Complaint: HEADACHE Nursing Triage Note: pt states routine h/a since this am, has tried meds at home with no relief Nursing Sepsis Screen: No Definite Risk Source: patient History of Present Illness Date Seen by Provider: Aug 03, 2019 Time Seen by Provider: 20:31 Initial Comments 38-year-old female presenting with recurrent headache. She states that this feels like her typical migraine headache. She has onset today with her headache. It is mostly on the left side of her head and primarily in the posterior part of her head. She states that she also had a panic attack with this and had some numbness in her hands during the panic attack. She has had nausea but no vomiting. She reports trying her home medications without any relief. She denies any fever or chills. Allergies and Home Medications Allergies Coded Allergies: Sulfa (Sulfonamide Antibiotics) (Verified Allergy, Mild, Itching, 03/14/19) cefuroxime (Verified Allergy, Unknown, 08/21/18) haloperidol (Verified Allergy, Unknown, 10/31/18) magnesium (Verified Allergy, Unknown, 08/21/18) prochlorperazine (Verified Allergy, Unknown, rash, 08/21/18) topiramate (Verified Allergy, Unknown, 08/21/18) tramadol (Verified Allergy, Unknown, 10/31/18) Uncoded Allergies: DHE (Allergy, Unknown, 10/31/18) Home Medications Cyclobenzaprine HCl 10 Mg Tablet, 10 MG PO Q8H PRN for SPASMS Prescribed by: JAXSON ANDERSON on 10/31/18 1810 Patient Home Medication List Home Medication List Reviewed: Yes Review of Systems Review of Systems Constitutional: No chills, No fever Eyes: Denies Blindness, Denies Blurred Vision; Photophobia Ears, Nose, Mouth, Throat: no symptoms reported Respiratory: no symptoms reported Cardiovascular: no symptoms reported Gastrointestinal: nausea; No vomiting Genitourinary: no symptoms reported Musculoskeletal: no symptoms reported Skin: no symptoms reported Psychiatric/Neurological: Headache Past Xzbjrku-Eotzpd-Ojorkv Hx Past Med/Social Hx: Reviewed Nursing Past Med/Soc Hx Patient Social History Alcohol Use: Denies Use Recreational Drug Use: No Smoking Status: Never a Smoker 2nd Hand Smoke Exposure: No Recent Foreign Travel: No Contact w/Someone Who Travel: No Recent Infectious Disease Expo: No Recent Hopitalizations: No Physical Abuse: No Sexual Abuse: No Mistreated: No Fear: No Seasonal Allergies Seasonal Allergies: No Past Medical History Surgeries: Yes 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 Respiratory: No Cardiac: No Neurological: Yes Headaches /Migraines 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 oz. 70.696621rg; 24.00 BMI Method:Stated General Appearance: WD/WN, other (anxious) HEENT: PERRL/EOMI, normal ENT inspection, pharynx normal Neck: supple, normal inspection Cardiovascular: normal peripheral pulses, regular rate, rhythm Respiratory: chest non-tender, lungs clear, normal breath sounds Gastrointestinal: normal bowel sounds, non tender, soft, no pulsatile mass Extremities: normal range of motion, non-tender, normal capillary refill Crainal Nerves: normal hearing, normal speech, PERRL Coordination/Gait: normal gait Motor/Sensory: no motor deficit, no sensory deficit Skin: normal color, warm/dry; No rash Progress/Results/Core Measures Results/Orders My Orders Orders - SUSANA LOPEZ MD Ketorolac Injection (Toradol Injection) (08/03/19 20:36) Diphenhydramine Injection (Benadryl Inje (08/03/19 20:36) Promethazine Injection (Phenergan Injec (08/03/19 20:36) Vital Signs/I&O 08/03/19 08/03/19 19:59 20:45 Temp 37.5 37.5 Pulse 82 82 Resp 16 16 B/P (MAP) 126/62 (83) 126/62 (83) Pulse Ox 98 98 O2 Delivery Room Air Blood Pressure Mean: 83 Progress Progress Note : Progress Note Since this is like her typical migraine headache will give the medicines that have helped her in the past. Phenergan 50 mg IM, Benadryl 50 mg IM, Toradol 60 mg IM. Discharged to home to rest in a cool dark room. Counseled to continue on her regular medicines and follow-up through the clinic. Departure Impression Primary Impression: Migraine Qualified Codes: G43.019 - Migraine without aura, intractable, without status migrainosus Disposition: HOME, SELF-CARE Condition: Stable Departure-Patient Inst. Decision time for Depature: 20:39 Referrals: WENCESLAO PARIS MD (PCP/Family) Primary Care Physician Patient Instructions: Migraine Headache (DC) Add. Discharge Instructions: Rest in a cool dark room. Continue your regular medicines. Follow up with clinic for continued concerns All discharge instructions reviewed with patient and/or family. Voiced understanding. SUSANA LOPEZ MD Aug 03, 2019 20:31
[2019-08-03] MEDS ORDERED: KETOROLAC 60 MG/2 ML VIAL IM STA (20:36)
[2019-08-03] MEDS ORDERED: PROMETHAZINE INJ 25 MG/ML (PHENERGAN) AMP IM STA (20:36)
[2019-08-03] MEDS ORDERED: diphenhydrAMINE 50 MG/ML INJ (BENADRYL) IM STA (20:36)
[2019-08-03 20:45] VITALS: BP 126/62
--- OUTSIDE RECORDS SUMMARY | 2019-08-11 19:37 | XMS REPORT | Continuity of Care Document ---
Author Author [facility] Organization [facility] Address [address] [place] [address] ;ext= Care Team Providers Care Camera Operator Name Role Phone TRUNG WIGGINS Admphys Unavailable TRUNG WIGGINS Attdebra Unavailable Hospital Admission Diagnosis Code Admission Diagnosis Date [id number] Migraine Social History Element Description Code Description Smoking Status Code System Start Date End Date Smoking Status [id number] Never smoker SNOMED-CT Problems Code Code System Problem Name Start Date End Date S tatus 99379878 SNOMED-CT Migraine 03/24/2018 Active 78685719 SNOMED-CT Headache 01/09/2017 Active 76759949 SNOMED-CT Migraine 01/07/2017 Active 28104446 SNOMED-CT Migraine 06/24/2016 Active Medications RxNorm Medication Dose Route Instructions Indication s Start Date End Date Status 780374 24 HR venlafaxine 75 MG Extended Release Oral Capsule 75 milligram oral orally every day Active 2900025 5 ML Lidocaine Hydrochloride 40 MG/ML Injection 0.5 milliliter Intranasal intranasally once (administer into one nostril;) Active 668615 Acetaminophen 250 MG / Aspirin 250 MG / Caffeine 65 MG Oral Tablet 1 tablet oral orally every 6 hours as needed. pain Active 345081 Levothyroxine Sodium 0.2 MG Oral Tablet 200 microgram oral orally every day Active Lorazepam 1 MG Oral Tablet 1 milligram oral o rally 1 to 2 times per day as needed. anxiety Active 507420 MAGNESIUM GLUCONATE 550 MG Oral Tablet 250 milligram o ral orally 2 times per day Active 1979 Naproxen 500 MG Oral Tablet 500 milligram oral orally 1 to 2 times per day as needed. pain Active 574223 Promethazine Hydrochloride 25 MG Oral Tablet 25 millig lopez oral orally every 4 to 6 hours as needed. nausea and vomiting Active 545384 Promethazine Hydrochloride 25 MG Rectal Suppository 25 milligram Rectal rectally every 4 to 6 hours as needed. nausea and vomiting Active 835236 Propranolol Hydrochloride 20 MG Oral Tablet 20 milligr am oral orally 2 times per day Active stadol 1 spray Intranasal intranasally 1 spray in a nostril no relief 45 min repeat in other nostril Active Allergies Code Code System Allergy Substance Type Reaction Severity Start Da te End Date Status 282274 RXNorm Ceftin Drug allergy Unknown 03/24/2018 Active 008166 RXNorm Compazine Drug allergy Unknown 03/24/2018 Active 6574 RXNorm Magnesium Drug allergy Unknown 03/24/2018 Active 31198 RXNorm Sulfa (Sulfonamides) Drug allergy Unknown 2015 Active 878035 RXNorm Topamax Drug allergy Unknown 03/24/2018 Active Results * No data in the system Vital Signs Vitals Value Date Body Temperature 97 F 06/23/2018 Respiratory Rate 16 06/23/2018 O2% BldC Oximetry 98 06/23/2018 BP Systolic 131 mmHg 06/23/2018 BP Diastolic 69 mmHg 06/23/2018 Height 67 in 06/23/2018 Weight Measured 155 lbs 06/23/2018 BSA (Body Surface Area) 1.41683 06/23/2018 BMI (Body Mass Index) 24.3 06/23/2018 Plan of Care * No data in the system Procedures * No data in the system Encounters Date Code Diagnosis Status (ICD10) - Q92331 MIGRAINE UNS NOT INTRACT W/O SM Active Immunizations * No data in the system Functional Status * No data in the system Hospital Discharge Instructions * No data in the system
--- OUTSIDE RECORDS SUMMARY | 2019-08-11 19:37 | XMS REPORT | Continuity of Care Document ---
Author Author [facility] Organization [facility] Address [address] [place] [address] ;ext= Care Team Providers Care Yeast Cake Cutter Name Role Phone [facility] Admphys Unavailable NAD[facility] Attphys Unavailable Hospital Admission Diagnosis Code Admission Diagnosis Date [id number] Headache Social History Element Description Code Description Smoking Status Code System Start Date End Date Smoking Status 567432350 Never smoker SNOMED-CT Problems Code Code System Problem Name Start Date End Date S tatus 91308667 SNOMED-CT Migraine 03/24/2018 Active 66471279 SNOMED-CT Headache 01/09/2017 Active 88036364 SNOMED-CT Migraine 01/07/2017 Active 23902666 SNOMED-CT Migraine 06/24/2016 Active Medications RxNorm Medication Dose Route Instructions Indication s Start Date End Date Status 466685 24 HR venlafaxine 75 MG Extended Release Oral Capsule 75 milligram oral orally every day Active 6414675 5 ML Lidocaine Hydrochloride 40 MG/ML Injection 0.5 milliliter Intranasal intranasally once (administer into one nostril;) Active 379081 Acetaminophen 250 MG / Aspirin 250 MG / Caffeine 65 MG Oral Tablet 1 tablet oral orally every 6 hours as needed. pain Active 860941 Levothyroxine Sodium 0.2 MG Oral Tablet 200 microgram oral orally every day Active Lorazepam 1 MG Oral Tablet 1 milligram oral o rally 1 to 2 times per day as needed. anxiety Active 542348 MAGNESIUM GLUCONATE 550 MG Oral Tablet 250 milligram o ral orally 2 times per day Active 1979 Naproxen 500 MG Oral Tablet 500 milligram oral orally 1 to 2 times per day as needed. pain Active 735049 Promethazine Hydrochloride 25 MG Oral Tablet 25 millig lopez oral orally every 4 to 6 hours as needed. nausea and vomiting Active 661075 Promethazine Hydrochloride 25 MG Rectal Suppository 25 milligram Rectal rectally every 4 to 6 hours as needed. nausea and vomiting Active 339712 Propranolol Hydrochloride 20 MG Oral Tablet 20 milligr am oral orally 2 times per day Active stadol 1 spray Intranasal intranasally 1 spray in a nostril no relief 45 min repeat in other nostril Active Allergies Code Code System Allergy Substance Type Reaction Severity Start Da te End Date Status 865267 RXNorm Ceftin Drug allergy Unknown 03/24/2018 Active 925004 RXNorm Compazine Drug allergy Unknown 03/24/2018 Active 6574 RXNorm Magnesium Drug allergy Unknown 03/24/2018 Active 13129 RXNorm Sulfa (Sulfonamides) Drug allergy Unknown 2015 Active 980672 RXNorm Topamax Drug allergy Unknown 03/24/2018 Active [...] Encounters Date Code Diagnosis Status (ICD10) - J31455 OTH MIGRAINE NOT INTRACTABLE W/O SM Acti ve Immunizations * No data in the system Functional Status * No data in the system Hospital Discharge Instructions * No data in the system
--- OUTSIDE RECORDS SUMMARY | 2019-08-11 19:37 | XMS REPORT | Continuity of Care Document ---
Author Author [email or web address] Organization [email or web address] Address [address] [place] [address] ;ext= Care Team Providers Care Coating And Baking Operator Name Role Phone TRUNG WIGGINS Admphys Unavailable TRUNG WIGGINS Attdebra Unavailable Hospital Admission Diagnosis Code Admission Diagnosis Date [id number] Migraine Social History Element Description Code Description Smoking Status Code System Start Date End Date Smoking Status 343339049 Never smoker SNOMED-CT Problems Code Code System Problem Name Start Date End Date S tatus 52920337 SNOMED-CT Migraine 03/24/2018 Active 94628342 SNOMED-CT Headache 01/09/2017 Active 23326335 SNOMED-CT Migraine 01/07/2017 Active 55469797 SNOMED-CT Migraine 06/24/2016 Active Medications RxNorm Medication Dose Route Instructions Indication s Start Date End Date Status 025722 24 HR venlafaxine 75 MG Extended Release Oral Capsule 75 milligram oral orally every day Active 8938665 5 ML Lidocaine Hydrochloride 40 MG/ML Injection 0.5 milliliter Intranasal intranasally once (administer into one nostril;) Active 817492 Acetaminophen 250 MG / Aspirin 250 MG / Caffeine 65 MG Oral Tablet 1 tablet oral orally every 6 hours as needed. pain Active 911796 Levothyroxine Sodium 0.2 MG Oral Tablet 200 microgram oral orally every day Active Lorazepam 1 MG Oral Tablet 1 milligram oral o rally 1 to 2 times per day as needed. anxiety Active 590799 MAGNESIUM GLUCONATE 550 MG Oral Tablet 250 milligram o ral orally 2 times per day Active 1979 Naproxen 500 MG Oral Tablet 500 milligram oral orally 1 to 2 times per day as needed. pain Active 020278 Promethazine Hydrochloride 25 MG Oral Tablet 25 millig lopez oral orally every 4 to 6 hours as needed. nausea and vomiting Active 009252 Promethazine Hydrochloride 25 MG Rectal Suppository 25 milligram Rectal rectally every 4 to 6 hours as needed. nausea and vomiting Active 508732 Propranolol Hydrochloride 20 MG Oral Tablet 20 milligr am oral orally 2 times per day Active stadol 1 spray Intranasal intranasally 1 spray in a nostril no relief 45 min repeat in other nostril Active Allergies Code Code System Allergy Substance Type Reaction Severity Start Da te End Date Status 970779 RXNorm Ceftin Drug allergy Unknown 03/24/2018 Active 057864 RXNorm Compazine Drug allergy Unknown 03/24/2018 Active 6574 RXNorm Magnesium Drug allergy Unknown 03/24/2018 Active 23615 RXNorm Sulfa (Sulfonamides) Drug allergy Unknown 2015 Active 776436 RXNorm Topamax Drug allergy Unknown 03/24/2018 Active Results * No data in the system Vital Signs Vitals Value Date Body Temperature 97.6 F 06/22/2018 O2% BldC Oximetry 100 06/22/2018 BP Systolic 144 mmHg 06/22/2018 BP Diastolic 80 mmHg 06/22/2018 Height 67 in 06/22/2018 Weight Measured 155 lbs 06/22/2018 BSA (Body Surface Area) 1.19107 06/22/2018 BMI (Body Mass Index) 24.3 06/22/2018 Plan of Care * No data in the system Procedures * No data in the system Encounters Date Code Diagnosis Status (ICD10) - S61161 MIGRAINE UNS NOT INTRACT W/O SM Active Immunizations * No data in the system Functional Status * No data in the system Hospital Discharge Instructions * No data in the system
--- OUTSIDE RECORDS SUMMARY | 2019-08-11 19:38 | XMS REPORT | Continuity of Care Document ---
Author Author [facility] Organization [facility] Address [address] [place] [address] ;ext= Care Team Providers Care Bingo Checker Name Role Phone TRUNG WIGGINS Admphys Unavailable TRUNG WIGGINS Attdebra Unavailable Hospital Admission Diagnosis * No data in the System Social History Element Description Code Description Smoking Status Code System Start Date End Date Smoking Status 604215777 Never smoker SNOMED-CT Problems Code Code System Problem Name Start Date End Date S tatus 47911214 SNOMED-CT Migraine 03/24/2018 Active 39923005 SNOMED-CT Headache 01/09/2017 Active 94859710 SNOMED-CT Migraine 01/07/2017 Active 14713108 SNOMED-CT Migraine 06/24/2016 Active Medications RxNorm Medication Dose Route Instructions Indication s Start Date End Date Status 440848 24 HR venlafaxine 75 MG Extended Release Oral Capsule 75 milligram oral orally every day Active 6021265 5 ML Lidocaine Hydrochloride 40 MG/ML Injection 0.5 milliliter Intranasal intranasally once (administer into one nostril;) Active 914539 Acetaminophen 250 MG / Aspirin 250 MG / Caffeine 65 MG Oral Tablet 1 tablet oral orally every 6 hours as needed. pain Active 243311 Levothyroxine Sodium 0.2 MG Oral Tablet 200 microgram oral orally every day Active Lorazepam 1 MG Oral Tablet 1 milligram oral o rally 1 to 2 times per day as needed. anxiety Active 993353 MAGNESIUM GLUCONATE 550 MG Oral Tablet 250 milligram o ral orally 2 times per day Active 1979 Naproxen 500 MG Oral Tablet 500 milligram oral orally 1 to 2 times per day as needed. pain Active 785608 Promethazine Hydrochloride 25 MG Oral Tablet 25 millig lopez oral orally every 4 to 6 hours as needed. nausea and vomiting Active 334351 Promethazine Hydrochloride 25 MG Rectal Suppository 25 milligram Rectal rectally every 4 to 6 hours as needed. nausea and vomiting Active 874350 Propranolol Hydrochloride 20 MG Oral Tablet 20 milligr am oral orally 2 times per day Active stadol 1 spray Intranasal intranasally 1 spray in a nostril no relief 45 min repeat in other nostril Active Allergies Code Code System Allergy Substance Type Reaction Severity Start Da te End Date Status 290355 RXNorm Ceftin Drug allergy Unknown 03/24/2018 Active 465752 RXNorm Compazine Drug allergy Unknown 03/24/2018 Active 6574 RXNorm Magnesium Drug allergy Unknown 03/24/2018 Active 82556 RXNorm Sulfa (Sulfonamides) Drug allergy Unknown 2015 Active 711545 RXNorm Topamax Drug allergy Unknown 03/24/2018 Active Results * No data in the system Vital Signs Vitals Value Date Body Temperature 97.6 F 06/22/2018 O2% BldC Oximetry 100 06/22/2018 BP Systolic 144 mmHg 06/22/2018 BP Diastolic 80 mmHg 06/22/2018 Height 67 in 06/22/2018 Weight Measured 155 lbs 06/22/2018 BSA (Body Surface Area) 1.94581 06/22/2018 BMI (Body Mass Index) 24.3 06/22/2018 Plan of Care * No data in the system Procedures * No data in the system Encounters * No data in the system Immunizations * No data in the system Functional Status * No data in the system Hospital Discharge Instructions * No data in the system
--- OUTSIDE RECORDS SUMMARY | 2019-08-11 19:38 | XMS REPORT | Continuity of Care Document ---
Author Author [facility] Organization [facility] Address [address] [place] [address] ;ext= Care Team Providers Care Scratcher Tender Name Role Phone TRUNG WIGGINS Admphys Unavailable TRUNG WIGGINS Attdebra Unavailable Hospital Admission Diagnosis * No data in the System Social History Element Description Code Description Smoking Status Code System Start Date End Date Smoking Status [id number] Never smoker SNOMED-CT Problems Code Code System Problem Name Start Date End Date S tatus 30144555 SNOMED-CT Migraine 03/24/2018 Active 07770842 SNOMED-CT Headache 01/09/2017 Active 46338650 SNOMED-CT Migraine 01/07/2017 Active 72063762 SNOMED-CT Migraine 06/24/2016 Active Medications RxNorm Medication Dose Route Instructions Indication s Start Date End Date Status 921990 24 HR venlafaxine 75 MG Extended Release Oral Capsule 75 milligram oral orally every day Active 1790195 5 ML Lidocaine Hydrochloride 40 MG/ML Injection 0.5 milliliter Intranasal intranasally once (administer into one nostril;) Active 387061 Acetaminophen 250 MG / Aspirin 250 MG / Caffeine 65 MG Oral Tablet 1 tablet oral orally every 6 hours as needed. pain Active 083794 Levothyroxine Sodium 0.2 MG Oral Tablet 200 microgram oral orally every day Active Lorazepam 1 MG Oral Tablet 1 milligram oral o rally 1 to 2 times per day as needed. anxiety Active 685518 MAGNESIUM GLUCONATE 550 MG Oral Tablet 250 milligram o ral orally 2 times per day Active 1979 Naproxen 500 MG Oral Tablet 500 milligram oral orally 1 to 2 times per day as needed. pain Active 471956 Promethazine Hydrochloride 25 MG Oral Tablet 25 millig lopez oral orally every 4 to 6 hours as needed. nausea and vomiting Active 348571 Promethazine Hydrochloride 25 MG Rectal Suppository 25 milligram Rectal rectally every 4 to 6 hours as needed. nausea and vomiting Active 385044 Propranolol Hydrochloride 20 MG Oral Tablet 20 milligr am oral orally 2 times per day Active stadol 1 spray Intranasal intranasally 1 spray in a nostril no relief 45 min repeat in other nostril Active Allergies Code Code System Allergy Substance Type Reaction Severity Start Da te End Date Status 630058 RXNorm Ceftin Drug allergy Unknown 03/24/2018 Active 084048 RXNorm Compazine Drug allergy Unknown 03/24/2018 Active 6574 RXNorm Magnesium Drug allergy Unknown 03/24/2018 Active 29108 RXNorm Sulfa (Sulfonamides) Drug allergy Unknown 2015 Active 864491 RXNorm Topamax Drug allergy Unknown 03/24/2018 Active Results * No data in the system Vital Signs Vitals Value Date Body Temperature 97 F 06/23/2018 Respiratory Rate 16 06/23/2018 O2% BldC Oximetry 98 06/23/2018 BP Systolic 131 mmHg 06/23/2018 BP Diastolic 69 mmHg 06/23/2018 Height 67 in 06/23/2018 Weight Measured 155 lbs 06/23/2018 BSA (Body Surface Area) 1.00717 06/23/2018 BMI (Body Mass Index) 24.3 06/23/2018 Plan of Care * No data in the system Procedures * No data in the system Encounters * No data in the system Immunizations * No data in the system Functional Status * No data in the system Hospital Discharge Instructions * No data in the system
--- OUTSIDE RECORDS SUMMARY | 2019-08-11 19:38 | XMS REPORT | Continuity of Care Document ---
Author Organization Unknown Address Unknown Phone Unavailable Allergies Active Description Code Type Severity Reaction Onset Reported/Identified Relationship to Patient Clinical Status Yes Sulfa (Sulfonamides) 491 Unknown N/A 06/24/2016 Yes Ceftin 3716 Unknown N/A 03/24/2018 Yes Compazine 3622 Unknown N/A 03/24/2018 Yes Magnesium 784 Unknown N/A 03/24/2018 Yes Topamax 58117 Unknown N/A 03/24/2018 Yes SULFA SULFA Mild itchy 08/21/2018 Yes cefuroxime [id number] Drug Allerg y Unknown N/A 08/21/2018 Yes magnesium [id number] Drug Allergy Unknown N/A 08/21/2018 Yes No Known Drug Allergies [id number] Drug Allergy Unknown N/A 08/21/2018 Yes prochlorperazine [id number] Drug Allergy Unknown rash 08/21/2018 Yes topiramate [id number] Drug Allerg y Unknown N/A 08/21/2018 Yes DHE DHE Unknown N/A 10/31/2018 Yes haloperidol [id number] Drug Aller gy Unknown N/A 10/31/2018 Yes tramadol [id number] Drug Allergy Unknown N/A 10/31/2018 Yes Sulfa (Sulfonamide Antibiotics) [id number] 0491 Drug Allergy Mild Itching 019 Medications [...] AURA, NOT INTRACTABLE, WITHOUT STATUS MIGRAINOSUS 07/18/2018 [facility] G43.809 OTHER MIGRAINE, NOT INTRACTABLE, WITHOUT STATUS MIGRAI NOSUS 07/18/2018 [facility] A R51 HEADACHE 08/22/2018 EARL ARAGON [...] ANDERSON MD Ot R51 HEADACHE 10/31/2018 JAXSON ANEDRSON MD Ot Z88. 2 ALLERGY STATUS TO [...] ALLERGY STATUS TO OTHER ANTIBIOTIC AGENT 05/07/2019 JOHN RESENDIZ, SUSANA Ramachandran Ot Z88.2 ALLERGY STATUS TO SULFONAMIDES STATUS 05/07/2019 SUSANA LOPEZ MD Ot Z88.5 ALLERGY STATUS TO NARCOTIC AGENT STATUS 05/07/2019 SUSANA LOPEZ MD Ot Z88.8 ALLERGY STATUS TO OTH DRUG/MEDS/BIOL SUB 05/07/2019 SUSANA LOPEZ MD Ot Z90.7 10 ACQUIRED ABSENCE OF BOTH CERVIX AND UTER 05/16/2019 ROVENSTINE DO, HERON L Ot F41.9 ANXIETY DISORDER, UNSPECIFIED 05/16/2019 ROVENSTINE DO, HERON L Ot G43.909 MIGRAINE, UNSP, NOT INTRACTABLE, WITHOUT 05/16/2019 ROVENSTINE DO, HERON L Ot R51 HEADACHE 05/16/2019 ROVENSTINE DO, HERON L Ot Z88.1 ALLERGY STATUS TO OTHER ANTIBIOTIC AGENT 05/16/2019 ROVENSTINE DO, HERON L Ot Z88.2 ALLERGY STATUS TO SULFONAMIDES STATUS 05/16/2019 ROVENSTINE DO, HERON L Ot Z88.5 ALLERGY STATUS TO NARCOTIC AGENT STATUS 05/16/2019 ROVENSTINE DO, HERON L Ot Z88.8 ALLERGY STATUS TO OTH DRUG/MEDS/BIOL SUB 05/16/2019 ROVENSTINE DO, HERON L Ot Z90.710 ACQUIRED ABSENCE OF BOTH CERVIX AND UTER 05/20/2019 CANDI TOM DO Ot F41. 9 ANXIETY DISORDER, UNSPECIFIED 05/20/2019 CANDI TOM DO Ot G43.909 MIGRAINE, UNSP, NOT INTRACTABLE, [...] OTH DRUG/MEDS/BIOL SUB 05/20/2019 CANDI TOM DO Ot Z90.710 ACQUIRED ABSENCE OF BOTH CERVIX AND UTER 05/23/2019 CANDI TOM DO Ot F41. 9 ANXIETY DISORDER, UNSPECIFIED 05/23/2019 CANDI TOM DO Ot G43.909 MIGRAINE, UNSP, NOT INTRACTABLE, WITHOUT 05/23/2019 CANDI TOM DO Ot R51 HEADACHE 05/23/2019 CANDI TOM DO B Ot Z88. 1 ALLERGY STATUS TO OTHER ANTIBIOTIC AGENT 05/23/2019 VAISHALI ARAGON CANDI B Ot Z88. 2 ALLERGY STATUS TO SULFONAMIDES STATUS 05/23/2019 CANDI TOM DO B Ot Z88. 5 ALLERGY STATUS TO NARCOTIC AGENT STATUS 05/23/2019 CANDI TOM DO B Ot Z88. 8 ALLERGY STATUS TO OTH DRUG/MEDS/BIOL SUB 05/23/2019 CANDI TOM DO Ot Z90.710 ACQUIRED ABSENCE OF BOTH CERVIX AND UTER 05/27/2019 HENOK BELTRAN MD Ot F41.9 ANXIETY DISORDER, UNSPECIFIED 05/27/2019 HENOK BELTRAN MD Ot G43.909 MIGRAINE, UNSP, NOT INTRACTABLE, WITHOUT 05/27/2019 HENOK BELTRAN MD Ot Z88.1 ALLERGY STATUS TO OTHER ANTIBIOTIC AGENT 05/27/2019 HENOK BELTRAN MD Ot Z88.2 ALLERGY STATUS TO SULFONAMIDES STATUS 05/27/2019 HENOK BELTRAN MD Ot Z88.5 ALLERGY STATUS TO NARCOTIC AGENT STATUS 05/27/2019 HENOK BELTRAN MD Ot Z88.8 ALLERGY STATUS TO OTH DRUG/MEDS/BIOL SUB 05/27/2019 HENOK BELTRAN MD Ot Z90.710 ACQUIRED ABSENCE OF BOTH CERVIX AND UTER 05/30/2019 NEMO GALINDO MD A Ot F41. 9 ANXIETY DISORDER, UNSPECIFIED 05/30/2019 JOSIE RESENDIZ, NEMO A Ot G43.909 MIGRAINE, UNSP, NOT INTRACTABLE, WITHOUT 05/30/2019 JOSIE RESENDIZ, NEMO A Ot R51 HEADACHE 05/30/2019 NEMO GALINDO MD A Ot Z88. 1 ALLERGY STATUS TO OTHER ANTIBIOTIC AGENT 05/30/2019 EVON GALINDO MDNT A Ot Z88. 2 ALLERGY STATUS TO SULFONAMIDES STATUS 05/30/2019 NEMO GALINDO MD A Ot Z88. 5 ALLERGY STATUS TO NARCOTIC AGENT STATUS 05/30/2019 NEMO GALINDO MD A Ot Z88. 8 ALLERGY STATUS TO OTH DRUG/MEDS/BIOL SUB 05/30/2019 JOSIE RESENDIZ, NEMO A Ot Z90.710 ACQUIRED ABSENCE OF BOTH CERVIX AND UTER 06/03/2019 NEMO GALINDO MD Ot F41. 9 ANXIETY DISORDER, UNSPECIFIED 06/03/2019 NEMO GALINDO MD A Ot G43.909 MIGRAINE, UNSP, NOT INTRACTABLE, WITHOUT 06/03/2019 NEMO GALINDO MD A Ot R51 HEADACHE 06/03/2019 NEMO GALINDO MD A Ot Z88. 1 ALLERGY STATUS TO OTHER ANTIBIOTIC AGENT 06/03/2019 NEMO GALINDO MD A Ot Z88. 2 ALLERGY STATUS TO SULFONAMIDES STATUS 06/03/2019 JOSIE RESENDIZ, NEMO A Ot Z88. 5 ALLERGY STATUS TO NARCOTIC AGENT STATUS 06/03/2019 NEMO GALINDO MD A Ot Z88. 8 ALLERGY STATUS TO OTH DRUG/MEDS/BIOL SUB 06/03/2019 NEMO GALINDO MD A Ot Z90.710 ACQUIRED ABSENCE OF BOTH CERVIX AND UTER 06/15/2019 HENOK BELTRAN MD Ot F41.9 ANXIETY DISORDER, UNSPECIFIED 06/15/2019 HENOK BELTRAN MD Ot G43.909 MIGRAINE, UNSP, NOT INTRACTABLE, WITHOUT 06/15/2019 HENOK BELTRAN MD Ot R5 1 HEADACHE 06/15/2019 HENOK BELTRAN MD Ot Z88.1 ALLERGY STATUS TO OTHER ANTIBIOTIC AGENT 06/15/2019 HENOK BELTRAN MD Ot Z88.2 ALLERGY STATUS TO SULFONAMIDES STATUS 06/15/2019 HENOK BELTRAN MD Ot Z88.5 ALLERGY STATUS TO NARCOTIC AGENT STATUS 06/15/2019 HENOK BELTRAN MD Ot Z88.8 ALLERGY STATUS TO OTH DRUG/MEDS/BIOL SUB 06/15/2019 HENOK BELTRAN MD Ot Z90.710 ACQUIRED ABSENCE [...] ACQUIRED ABSENCE OF BOTH CERVIX AND UTER 06/24/2019 JOSIE RESENDIZ, NEMO A Ot F41. 9 ANXIETY DISORDER, UNSPECIFIED 06/24/2019 JOSIE RESENDIZ, NEMO A Ot R51 HEADACHE 06/24/2019 JOSIE RESENDIZ, NEMO A Ot Z86. 69 PERSONAL HISTORY OF DIS OF THE NERVOUS S 06/24/2019 JOSIE RESENDIZ, NEMO A Ot Z88. 1 ALLERGY STATUS TO OTHER ANTIBIOTIC AGENT 06/24/2019 JOSIE RESENDIZ, NEMO A Ot Z88. 2 ALLERGY STATUS TO SULFONAMIDES STATUS 06/24/2019 JOSIE RESENDIZ, NEMO A Ot Z88. 5 ALLERGY STATUS TO NARCOTIC AGENT STATUS 06/24/2019 JOSIE RESENDIZ, NEMO A Ot Z88. 8 ALLERGY STATUS TO OTH DRUG/MEDS/BIOL SUB 06/24/2019 EVON GALINDO MDNT A Ot Z90.710 ACQUIRED ABSENCE OF BOTH CERVIX AND UTER 06/25/2019 NEMO GALINDO MD A Ot F41. 9 ANXIETY DISORDER, UNSPECIFIED 06/25/2019 JOSIE RESENDIZ NEMO A Ot R51 HEADACHE 06/25/2019 JOSIE RESENDIZ NEMO A Ot Z86. 69 PERSONAL HISTORY OF DIS OF THE NERVOUS S 06/25/2019 JOSIE RESENDIZ NEMO A Ot Z88. 1 ALLERGY STATUS TO OTHER ANTIBIOTIC AGENT 06/25/2019 JOSIE RESENDIZ NEMO A Ot Z88. 2 ALLERGY STATUS TO SULFONAMIDES STATUS 06/25/2019 JOSIE RESENDIZ NEMO A Ot Z88. 5 ALLERGY STATUS TO NARCOTIC AGENT STATUS 06/25/2019 JOSIE RESENDIZ, NEMO A Ot Z88. 8 ALLERGY STATUS TO OTH DRUG/MEDS/BIOL SUB 06/25/2019 JOSIE RESENDIZ NEMO A Ot Z90.710 ACQUIRED ABSENCE OF BOTH CERVIX AND UTER 06/30/2019 NEMO GALINDO MD A Ot F41. 9 ANXIETY DISORDER, UNSPECIFIED 06/30/2019 JOSIE RESENDIZ, NEMO A Ot R51 HEADACHE 06/30/2019 JOSIE RESENDIZ, NEMO A Ot Z86. 69 PERSONAL HISTORY OF DIS OF THE NERVOUS S 06/30/2019 JOSIE RESENDIZ NEMO A Ot Z88. 1 ALLERGY STATUS TO OTHER ANTIBIOTIC AGENT 06/30/2019 JOSIE RESENDIZ, NEMO Gottlieb Ot Z88. 2 ALLERGY STATUS TO SULFONAMIDES STATUS 06/30/2019 NEMO GALINDO MD Ot Z88. 5 ALLERGY STATUS TO NARCOTIC AGENT STATUS 06/30/2019 JOSIE RESENDIZ, NEMO Gottlieb Ot Z88. 8 ALLERGY STATUS TO OTH DRUG/MEDS/BIOL SUB 06/30/2019 NEMO GALINDO MD Ot Z90.710 ACQUIRED ABSENCE OF BOTH [...] Status Pt. Type Provider Facility Loc./Unit Complaint [id number] 08/08/2019 16:40:00 08/08/2019 23:59: [address] [facility] Outpatient LORENZAWENCESLAO CRISOSTOMO [facility] [id number] 04/16/2019 07:30:00 Document Registration [id number] 01/29/2019 18:20:00 Document Registration [id number] 12/12/2018 14:15:00 Document Registration [id number] 11/07/2018 17:20:00 Document Registration [id number] 10/25/2018 16:10:00 Document Registration [id number] 10/12/2018 16:20:00 Document Registration [id number] 06/23/2018 04:07:00 ACT Unknown TRUNG WIGGINS [facility] NSER HEADACHE [id number] 06/22/2018 22:07:00 ACT Unknown TRUNG WIGGINS [facility] NSER HEADACHE [id number] 03/24/2018 19:16:00 ACT Unknown ROYCE LUBIN [facility] NSER HEADACHE [id number] 01/09/2017 18:47:00 ACT Unknown REDD GASTELUM [facility] NSER HEADACHE [id number] 01/07/2017 21:26:00 ACT Unknown Alma Rosa ADEN [facility] NSER HEADACHE [id number] 06/24/2016 20:12:00 [facility] NSER HEADACHE [id number] 06/26/2015 20:27:00 ACT Unknown JC LLANES [id number] 08/10/2019 23:52:00 00:24:00 DIS Emergency MELANIE BERNABE DO [facility] ER FS HEADACHE [id number] 08/03/2019 19:30:00 20:55:00 DIS Emergency SUSANA LOPEZ MD [facility] ER FS HEADACHE [id number] 06/25/2019 00:00:00 00:47:00 DIS Emergency NEMO GALINDO MD [facility] ER FS MIGRAINE [id number] 06/24/2019 18:43:00 19:38:00 DIS Emergency NEMO GALINDO MD [facility] ER FS MIGRAINE, N/V [id number] 06/15/2019 00:15:00 00:48:00 DIS Emergency HENOK BELTRAN MD [facility] ER FS HEADACHE/NAUSEA/VOMITTI NG [id number] 05/30/2019 17:25:00 18:36:00 DIS Emergency NEMO GALINDO MD [facility] ER FS MIGRAINE [id number] 05/27/2019 18:38:00 19:28:00 DIS Emergency HENOK BELTRAN MD [facility] ER FS MIGRAINE SYMPTOMS [id number] 05/20/2019 18:38:00 19:20:00 DIS Emergency CANDI TOM DO [facility] ER FS HEADACHE [id number] 05/16/2019 18:57:00 19:30:00 DIS Emergency HERON PERLA DO [facility] ER FS MIGRAINE [id number] 05/04/2019 22:14:00 23:07:00 DIS Emergency JOHN RESENDIZ, SUSANA Ramachandran [facility] ER FS MIGRAINE [id number] 04/21/2019 01:30:00 01:54:00 DIS Emergency JOSIE RESENDIZ, NEMO Gottlieb [facility] ER FS HEADACHE,COUGH [id number] 04/12/2019 03:14:00 03:52:00 DIS Emergency SUSANA LOPEZ MD [facility] ER FS MIGRAINE SYMPTOMS [id number] 04/08/2019 00:35:00 01:59:00 DIS Emergency JOSIE RESENDIZ, NEMO Gottlieb [facility] ER FS MIGRAINE [id number] 03/19/2019 01:52:00 03:48:00 DIS Outpatient SUSANA LOPEZ MD [facility] FS SEVERE MIGRAINE [id number] 03/14/2019 16:52:00 17:38:00 DIS Emergency HERON PERLA DO [facility] ER FS HEADACHE [id number] 01/30/2019 11:34:00 13:44:00 DIS Emergency SUSANA LOPEZ MD [facility] ER FS HEADACHE; VOMITING [id number] 01/01/2019 10:21:00 11:30:00 DIS Emergency TRISTEN LANDRY DO [facility] ER FS HEADACHE [id number] 12/23/2018 18:47:00 20:51:00 DIS Emergency VERONICA LORA DO [facility] ER FS MIGRAINE [id number] 2018 15:36:00 16:30:00 DIS Emergency KATIA LIRIANO DO [facility] ER FS MIGRAINE;NAUSEA;VOMITIN G [id number] 10/31/2018 16:57:00 18:30:00 DIS Emergency JAXSON ANDERSON MD [facility] ER FS HEADACHE [id number] 10/24/2018 15:25:00 23:59:59 CLS Outpatient RAINA RESENDIZ, WENCESLAO Medina [facility] RAD FS M54.41 [id number] 08/22/2018 09:55:00 12:18:00 DIS Emergency FARHAT RESENDIZ, SABINA gottlieb [facility] ER FS HEADACHE [id number] 08/21/2018 21:49:00 00:46:00 DIS Emergency JOEL ELLIOTT DO [facility] ER FS MIGRAINE, NAUSEA, SENSI TIVE TO LIGHT AND SMELLS
== END 2019-08-03 20:55 | disposition home or self-care (01) ==
LOC: EDUNIT# 19:28 → ER FS 19:30
DX: G43.909 Migraine, unspecified, not intractable, without status migrainosus (principal); Z88.2 Allergy status to sulfonamides; Z88.1 Allergy status to other antibiotic agents; Z88.8 Allergy status to other drugs, medicaments and biological substances; Z88.5 Allergy status to narcotic agent
CPT/HCPCS: 96372; 99284

== ENCOUNTER 2019-08-10 23:50 | Emergency (ER) | payer MEDICARE, OTHER ==
[~2019-08-10] VITALS: Ht 162 cm; Wt 70.5 kg
--- NOTE | 2019-08-10 23:54 | ED General ---
General Stated Complaint: HEADACHE History of Present Illness Date Seen by Provider: Aug 10, 2019 Time Seen by Provider: 23:54 Initial Comments Patient is a 38-year-old female who comes to the emergency department this evening accompanied by her mother for evaluation of migraine headache. The patient is well-known to this emergency room and does have a chronic, extended history of headaches. She has been evaluated at [facility] and had exhausted treatment options from nearly every angle. She controls her symptoms with Phene rgan and Benadryl, lorazepam and Stadol nasal spray at home and she is seen by her primary physician regularly for these medications. Tonight, she comes to the ER with her usual symptoms. She has not had a fever. Her pain is on the left side of her head and extends down to the left side of her neck. No trauma. Medications at home have not been successful at relieving her symptoms. No vomiting. She does have photophobia. Allergies and Home Medications Allergies Coded Allergies: Sulfa (Sulfonamide Antibiotics) (Verified Allergy, Mild, Itching, 03/14/19) cefuroxime (Verified Allergy, Unknown, 08/21/18) haloperidol (Verified Allergy, Unknown, 10/31/18) magnesium (Verified Allergy, Unknown, 08/21/18) prochlorperazine (Verified Allergy, Unknown, rash, 08/21/18) topiramate (Verified Allergy, Unknown, 08/21/18) tramadol (Verified Allergy, Unknown, 10/31/18) Uncoded Allergies: DHE (Allergy, Unknown, 10/31/18) Home Medications Cyclobenzaprine HCl 10 Mg Tablet, 10 MG PO Q8H PRN for SPASMS Prescribed by: JAXSON ANDERSON on 10/31/18 1810 Patient Home Medication List Home Medication List Reviewed: Yes Review of Systems Review of Systems Constitutional: no symptoms reported EENTM: no symptoms reported Respiratory: no symptoms reported Cardiovascular: no symptoms reported Genitourinary: no symptoms reported Musculoskeletal: no symptoms reported Skin: no symptoms reported Psychiatric/Neurological: See HPI Past Mdmjwir-Yxblpw-Ibmxeu Hx Patient Social History 2nd Hand Smoke Exposure: No Recent Foreign Travel: No Contact w/Someone Who Travel: No Recent Hopitalizations: No Seasonal Allergies Seasonal Allergies: No Past Medical History Surgeries: Yes 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 Respiratory: No Cardiac: No Neurological: Yes 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 oz. 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 II-XII Norm as Tested Skin: Normal Color Progress/Results/Core Measures Suspected Sepsis SIRS Temperature: Pulse: Respiratory Rate: Blood Pressure / Mean: Results/Orders My Orders Orders - MELANIE BERNABE DO Diphenhydramine Injection (Benadryl Inje (08/11/19 00:15) Promethazine Injection (Phenergan Injec (08/11/19 00:15) Ketorolac Injection (Toradol Injection) (08/11/19 00:15) Medications Given in ED Current Medications Medications Dose Ordered Sig/Shell Route Start Time Stop Time Status Last Admin Dose Admin Diphenhydramine HCl 50 mg ONCE ONCE IM 08/11/19 00:15 08/11/19 00:16 DC 08/11/19 00:21 50 MG Ketorolac Tromethamine 60 mg ONCE ONCE IM 08/11/19 00:15 08/11/19 00:16 DC 08/11/19 00:21 60 MG Promethazine HCl 50 mg ONCE PRN IM 08/11/19 00:15 08/11/19 00:22 50 MG Vital Signs/I&O 08/10/19 23:58 Temp 36.5 Pulse 84 Resp 16 B/P (MAP) 141/74 (96) Pulse Ox 97 O2 Delivery Room Air Capillary Refill : Progress Note : Time: 00:25 Progress Note Patient is seen and examined in the emergency Department for migraine headache. She has no new or red flag symptoms on presentation or on physical examination. Patient reports she normally would receive 50 g of Benadryl, 50 mg of Phenergan, and 60 mg of Toradol IM. All of the medications were given to her in the ER. She was discharged home following this which is her normal plan of care. Patient feels That her symptoms will improve at home. She lives very close to here and she will return to the ER if needed. She already has scheduled follow-up with her primary care team and she is very well informed about her condition. Patient was requesting discharge home after her injections were given. She has tolerated these medications many times in the past. Departure Impression Primary Impression: Headache Disposition: 01 HOME, SELF-CARE Condition: Improved Departure-Patient Inst. Referrals: WENCESLAO PARIS MD (PCP/Family) Primary Care Physician MELANIE BERNABE DO Aug 10, 2019 23:53
[2019-08-11] MEDS ORDERED: KETOROLAC 60 MG/2 ML VIAL IM ONE (00:15)
[2019-08-11] MEDS ORDERED: diphenhydrAMINE 50 MG/ML INJ (BENADRYL) IM ONE (00:15)
[2019-08-11] MEDS ORDERED: PROMETHAZINE INJ 25 MG/ML (PHENERGAN) AMP IM PRN (00:15)
[2019-08-11 00:23] VITALS: BP 141/74
== END 2019-08-11 00:24 | disposition home or self-care (01) ==
LOC: EDUNIT# 23:50 → ER FS 23:52
DX: R51 Headache (principal); F41.9 Anxiety disorder, unspecified; Z86.69 Personal history of other diseases of the nervous system and sense organs; Z88.2 Allergy status to sulfonamides; Z88.8 Allergy status to other drugs, medicaments and biological substances; Z88.5 Allergy status to narcotic agent; Z90.710 Acquired absence of both cervix and uterus
CPT/HCPCS: 99284

== ENCOUNTER 2019-08-12 03:25 | Emergency (ER) | payer MEDICARE, OTHER ==
[~2019-08-12] VITALS: Ht 170.1 cm; Wt 69.2 kg
[2019-08-12] MEDS ORDERED: PROMETHAZINE INJ 25 MG/ML (PHENERGAN) AMP IM STA (03:38)
[2019-08-12] MEDS ORDERED: diphenhydrAMINE 50 MG/ML INJ (BENADRYL) IM STA (03:38)
[2019-08-12] MEDS ORDERED: KETOROLAC 60 MG/2 ML VIAL IM STA (03:38)
--- NOTE | 2019-08-12 03:44 | ED Headache ---
General Chief Complaint: Head/Cervical Problems Stated Complaint: MIGRAINE Nursing Triage Note: Patient is here for a migraine that she has had since yesterday. Patient was seen in the ER last night for the same headache. Patient states that it never went away. Patient also states that she feels like she is getting the flu. Patient rates her pain at an 8. Nursing Sepsis Screen: No Definite Risk Source: patient History of Present Illness Date Seen by Provider: Aug 12, 2019 Time Seen by Provider: 03:26 Initial Comments 38 yo F presenting with recurrent migraine headache. She reports that the pain is similar to her prior migraine headaches. She has pain on the left posterior head and neck area. She has had some low grade subjective fever as well. Her son was diagnosed with Influenza B on Sunday and she is concerned that she might be coming down with that as well. Allergies and Home Medications Allergies Coded Allergies: Sulfa (Sulfonamide Antibiotics) (Verified Allergy, Mild, Itching, 03/14/19) cefuroxime (Verified Allergy, Unknown, 08/21/18) haloperidol (Verified Allergy, Unknown, 10/31/18) magnesium (Verified Allergy, Unknown, 08/21/18) prochlorperazine (Verified Allergy, Unknown, rash, 08/21/18) topiramate (Verified Allergy, Unknown, 08/21/18) tramadol (Verified Allergy, Unknown, 10/31/18) Uncoded Allergies: DHE (Allergy, Unknown, 10/31/18) Home Medications Cyclobenzaprine HCl 10 Mg Tablet, 10 MG PO Q8H PRN for SPASMS Prescribed by: JAXSON ANDERSON on 10/31/18 1810 Patient Home Medication List Home Medication List Reviewed: Yes Review of Systems Review of Systems Constitutional: No chills; dizziness, fever (subjective), malaise Eyes: Photophobia Ears, Nose, Mouth, Throat: no symptoms reported Respiratory: cough Cardiovascular: no symptoms reported Gastrointestinal: nausea, vomiting Genitourinary: no symptoms reported Musculoskeletal: neck pain (left sided neck pain), other (body aches) Skin: no symptoms reported Psychiatric/Neurological: Anxiety, Headache (typical migraine headache) Past Fxxvywp-Hnqqvo-Ctqcrd Hx Past Med/Social Hx: Reviewed Nursing Past Med/Soc Hx Patient Social History Alcohol Use: Denies Use Recreational Drug Use: No 2nd Hand Smoke Exposure: No Recent Foreign Travel: No Contact w/Someone Who Travel: No Recent Infectious Disease Expo: No Recent Hopitalizations: No Physical Abuse: No Sexual Abuse: No Mistreated: No Fear: No Seasonal Allergies Seasonal Allergies: No Past Medical History Surgeries: Yes 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 Respiratory: No Cardiac: No 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 oz. 70.420872gs; 23.00 BMI Method:Stated General Appearance: WD/WN, mild distress HEENT: PERRL/EOMI, normal ENT inspection, pharynx normal Neck: full range of motion, supple, other (tender on left posterior neck/occiput) Cardiovascular: normal peripheral pulses, regular rate, rhythm Respiratory: chest non-tender, lungs clear, normal breath sounds, no respiratory distress, no accessory muscle use Gastrointestinal: normal bowel sounds, soft, no pulsatile mass Extremities: normal range of motion, non-tender, normal capillary refill Psychiatric: alert, oriented x 3 Crainal Nerves: normal hearing, normal speech, PERRL Coordination/Gait: normal gait Motor/Sensory: no motor deficit, no sensory deficit Skin: normal color, warm/dry; No rash Progress/Results/Core Measures Results/Orders My Orders Orders - SUSANA LOPEZ MD Diphenhydramine Injection (Benadryl Inje (08/12/19 03:38) Ketorolac Injection (Toradol Injection) (08/12/19 03:38) Promethazine Injection (Phenergan Injec (08/12/19 03:38) Vital Signs/I&O 08/12/19 03:31 Temp 36.9 Pulse 84 Resp 18 B/P (MAP) 139/74 (95) Pulse Ox 97 O2 Delivery Room Air Blood Pressure Mean: 95 Progress Progress Note : Progress Note treat with Toradol, Phenergan and Benadryl since those have helped her in the past Departure Impression Primary Impression: Migraine headache without aura Qualified Codes: G43.009 - Migraine without aura, not intractable, without status migrainosus Disposition: 01 HOME, SELF-CARE Condition: Stable Departure-Patient Inst. Decision time for Depature: 03:44 Referrals: WENCESLAO PARIS MD (PCP/Family) Primary Care Physician Patient Instructions: Migraine Headache (DC) Add. Discharge Instructions: Continue your regular medicines. Rest in a cool dark room All discharge instructions reviewed with patient and/or family. Voiced understanding. SUSANA LOPEZ MD Aug 12, 2019 03:44
[2019-08-12 03:50] VITALS: BP 139/74
== END 2019-08-12 03:53 | disposition home or self-care (01) ==
LOC: EDUNIT# 03:25 → ER FS 03:28
DX: G43.009 Migraine without aura, not intractable, without status migrainosus (principal); Z88.2 Allergy status to sulfonamides; Z88.8 Allergy status to other drugs, medicaments and biological substances; Z88.5 Allergy status to narcotic agent; Z90.710 Acquired absence of both cervix and uterus
CPT/HCPCS: 99284

== ENCOUNTER 2019-08-25 03:48 | Emergency (ER) | payer MEDICARE, OTHER ==
[~2019-08-25] VITALS: Ht 167 cm; Wt 69.2 kg
--- NOTE | 2019-08-25 04:10 | ED Headache ---
General Chief Complaint: Head/Cervical Problems Stated Complaint: HEADACHE Source: patient History of Present Illness Date Seen by Provider: Aug 25, 2019 Time Seen by Provider: 04:01 Timing/Duration: other (3 days) Severity/Quality: mild Location: temporal (left) Prior Headaches/Recent Trauma: chronic headaches Associated Symptoms: nausea/vomiting Allergies and Home Medications Allergies Coded Allergies: Sulfa (Sulfonamide Antibiotics) (Verified Allergy, Mild, Itching, 03/14/19) cefuroxime (Verified Allergy, Unknown, 08/21/18) haloperidol (Verified Allergy, Unknown, 10/31/18) magnesium (Verified Allergy, Unknown, 08/21/18) prochlorperazine (Verified Allergy, Unknown, rash, 08/21/18) topiramate (Verified Allergy, Unknown, 08/21/18) tramadol (Verified Allergy, Unknown, 10/31/18) Uncoded Allergies: DHE (Allergy, Unknown, 10/31/18) Home Medications Cyclobenzaprine HCl 10 Mg Tablet, 10 MG PO Q8H PRN for SPASMS Prescribed by: JAXSON ANDERSON on 10/31/18 181 Patient Home Medication List Home Medication List Reviewed: Yes Review of Systems Review of Systems Constitutional: no symptoms reported Eyes: Photophobia Ears, Nose, Mouth, Throat: nose discharge Respiratory: cough Cardiovascular: no symptoms reported Gastrointestinal: nausea Genitourinary: no symptoms reported : No (hysterectomy) Musculoskeletal: no symptoms reported Skin: no symptoms reported Psychiatric/Neurological: No Symptoms Reported Past Upwklei-Ekpqqa-A[place]uas Hx Past Med/Social Hx: Reviewed Nursing Past Med/Soc Hx Patient Social History Alcohol Use: Denies Use Recreational Drug Use: No Smoking Status: Never a Smoker 2nd Hand Smoke Exposure: No Recent Foreign Travel: No Contact w/Someone Who Travel: No Recent Hopitalizations: No Physical Abuse: No Sexual Abuse: No Seasonal Allergies Seasonal Allergies: No Past Medical History Surgeries: Yes 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 Respiratory: No Cardiac: No 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 oz. 70.185995rl; 23.00 BMI Method:Stated General Appearance: WD/WN, no apparent distress HEENT: PERRL/EOMI, normal ENT inspection, pharynx normal Neck: non-tender, full range of motion, supple, normal inspection, thyromegaly Cardiovascular: regular rate, rhythm, no edema, no gallop, no JVD, no murmur Respiratory: chest non-tender, lungs clear, normal breath sounds, no respiratory distress Gastrointestinal: normal bowel sounds, non tender, soft, no organomegaly Back: normal inspection, no CVA tenderness Extremities: normal range of motion, normal inspection, no pedal edema, no calf tenderness Psychiatric: alert, oriented x 3 Crainal Nerves: normal hearing, normal speech, PERRL; No abnormal eye position, No abnormal gag reflex, No abnormal pupil position, No abnormal speech, No facial asymmetry, No facial droop Coordination/Gait: normal gait Motor/Sensory: no motor deficit, no sensory deficit, no pronator drift, negative Babinski's sign Skin: normal color, warm/dry Lymphatic: no adenopathy Progress/Results/Core Measures Results/Orders My Orders Orders - MARY BETH ALEMAN DO Ed Iv/Invasive Line Start (08/25/19 04:18) Dexamethasone Injection (Decadron Inject (08/25/19 04:30) Ketorolac Injection (Toradol Injection) (08/25/19 04:30) Promethazine Injection (Phenergan Injec (08/25/19 04:30) Benztropine Injection (Cogentin Injectio (08/25/19 04:30) Vital Signs/I&O 08/25/19 03:54 Temp 36.4 Pulse 75 Resp 16 B/P (MAP) 121/69 (86) Pulse Ox 100 O2 Delivery Room Air Progress Progress Note : Progress Note Patient with history of chronic migraine headache since Sunday multiple ER visits multiple previous evaluations on abortive prophylactic medication with a typical migraine. Normal exam plan will be routine medications discharge home Departure Impression Primary Impression: Chronic migraine Disposition: HOME, SELF-CARE Condition: Stable Departure-Patient Inst. Referrals: WENCESLAO PARIS MD (PCP/Family) Primary Care Physician 2 day MARY BETH ALEMAN DO Aug 25, 2019 04:10
[2019-08-25] MEDS ORDERED: PROMETHAZINE INJ 25 MG/ML (PHENERGAN) AMP IVP ONE (04:30)
[2019-08-25] MEDS ORDERED: DEXAMETHASONE 4 MG/ML SDV (DECADRON) IV ONE (04:30)
[2019-08-25] MEDS ORDERED: KETOROLAC 30 MG/ML VIAL IVP ONE (04:30)
[2019-08-25] MEDS ORDERED: BENZTROPINE 2 MG/2 ML INJ (COGENTIN) AMP IV ONE (04:30)
[2019-08-25 05:07] VITALS: BP 121/69
== END 2019-08-25 05:08 | disposition home or self-care (01) ==
LOC: EDUNIT# 03:48 → ER FS 03:50
DX: G43.709 Chronic migraine without aura, not intractable, without status migrainosus (principal); Z88.2 Allergy status to sulfonamides; Z88.1 Allergy status to other antibiotic agents; Z88.5 Allergy status to narcotic agent; Z88.8 Allergy status to other drugs, medicaments and biological substances
CPT/HCPCS: 99284

== ENCOUNTER 2019-08-27 01:01 | Emergency (ER) | payer MEDICARE, OTHER ==
[~2019-08-27] VITALS: Ht 170.1 cm; Wt 68.0 kg
[2019-08-27] MEDS ORDERED: diphenhydrAMINE 50 MG/ML INJ (BENADRYL) ONE (01:13)
[2019-08-27] MEDS ORDERED: PROMETHAZINE INJ 25 MG/ML (PHENERGAN) AMP ONE (01:13)
[2019-08-27] MEDS ORDERED: KETOROLAC 60 MG/2 ML VIAL ONE (01:13)
--- NOTE | 2019-08-27 01:13 | ED Headache ---
General Chief Complaint: Head/Cervical Problems Stated Complaint: MIGRAINE History of Present Illness Date Seen by Provider: Aug 27, 2019 Time Seen by Provider: 01:08 Initial Comments Patient presenting to emergency department for evaluation of headache that she says the same as prior migraine headaches and says that this has lasted longer. She has nausea and photophobia but no vomiting fevers chills neck stiffness vision changes. She says there is nothing different about this headache. Allergies and Home Medications Allergies Coded Allergies: Sulfa (Sulfonamide Antibiotics) (Verified Allergy, Mild, Itching, 03/14/19) cefuroxime (Verified Allergy, Unknown, 08/21/18) haloperidol (Verified Allergy, Unknown, 10/31/18) magnesium (Verified Allergy, Unknown, 08/21/18) prochlorperazine (Verified Allergy, Unknown, rash, 08/21/18) topiramate (Verified Allergy, Unknown, 08/21/18) tramadol (Verified Allergy, Unknown, 10/31/18) Uncoded Allergies: DHE (Allergy, Unknown, 10/31/18) Home Medications Cyclobenzaprine HCl 10 Mg Tablet, 10 MG PO Q8H PRN for SPASMS Prescribed by: JAXSON ANDERSON on 10/31/18 1810 Patient Home Medication List Home Medication List Reviewed: Yes Review of Systems Review of Systems Constitutional: no symptoms reported Eyes: No Symptoms Reported Ears, Nose, Mouth, Throat: no symptoms reported Respiratory: no symptoms reported Cardiovascular: no symptoms reported Gastrointestinal: nausea Genitourinary: no symptoms reported Musculoskeletal: no symptoms reported Skin: no symptoms reported Psychiatric/Neurological: Headache Past Itmxnwk-Yduvxu-Lxanup Hx Patient Social History 2nd Hand Smoke Exposure: No Recent Foreign Travel: No Contact w/Someone Who Travel: No Recent Hopitalizations: No Seasonal Allergies Seasonal Allergies: No Past Medical History Surgeries: Yes 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 Respiratory: No Cardiac: No 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 oz. 70.339209ya; 24.00 BMI Method:Stated General Appearance: WD/WN, no apparent distress HEENT: PERRL/EOMI Neck: full range of motion, supple Cardiovascular: regular rate, rhythm Respiratory: lungs clear, no accessory muscle use Gastrointestinal: non tender, soft Extremities: no pedal edema Psychiatric: alert, oriented x 3 Motor/Sensory: no motor deficit, no sensory deficit Skin: warm/dry Progress/Results/Core Measures Progress Progress Note : Progress Note Patient says that Toradol Benadryl and Phenergan is her typical migraine cocktail so I will give this to her and then she will be allowed to rest and be discharged home and instructed to follow with her primary care provider and/or neurologist. Patient aware and agreeable with plan. Departure Impression Primary Impression: Migraine Qualified Codes: G43.909 - Migraine, unspecified, not intractable, without status migrainosus Disposition: 01 HOME, SELF-CARE Condition: Stable Departure-Patient Inst. Referrals: WENCESLAO PARIS MD (PCP/Family) Primary Care Physician Patient Instructions: Migraine Headache (DC) VERONICA LORA DO Aug 27, 2019 01:13
[2019-08-27] MEDS ORDERED: diphenhydrAMINE 50 MG/ML INJ (BENADRYL) IM ONE (01:15)
[2019-08-27] MEDS ORDERED: KETOROLAC 60 MG/2 ML VIAL IM ONE (01:15)
[2019-08-27] MEDS ORDERED: PROMETHAZINE INJ 25 MG/ML (PHENERGAN) AMP IM ONE (01:15)
[2019-08-27 01:24] VITALS: BP 136/72
--- OUTSIDE RECORDS SUMMARY | 2019-09-01 05:15 | XMS REPORT | Continuity of Care Document ---
Author Organization Unknown Address Unknown Phone Unavailable Allergies Active Description Code Type Severity Reaction Onset Reported/Identified Relationship to Patient Clinical Status Yes Sulfa (Sulfonamides) 491 Unknown N/A 06/24/2016 Yes Ceftin 3716 Unknown N/A 03/24/2018 Yes Compazine 3622 Unknown N/A 03/24/2018 Yes Magnesium 784 Unknown N/A 03/24/2018 Yes Topamax 07674 Unknown N/A 03/24/2018 Yes SULFA SULFA Mild itchy 08/21/2018 Yes cefuroxime [id number] Drug Allerg y Unknown N/A 08/21/2018 Yes magnesium [id number] Drug Allergy Unknown N/A 08/21/2018 Yes No Known Drug Allergies [id number] Drug Allergy Unknown N/A 08/21/2018 Yes prochlorperazine [id number] Drug Allergy Unknown rash 08/21/2018 Yes topiramate [id number] Drug Allerg y Unknown N/A 08/21/2018 Yes DHE DHE Unknown N/A 10/31/2018 Yes haloperidol [id number] Drug Aller gy Unknown N/A 10/31/2018 Yes tramadol [id number] Drug Allergy Unknown N/A 10/31/2018 Yes Sulfa (Sulfonamide Antibiotics) G11466 0491 Drug Allergy Mild Itching 019 Medications [...] AURA, NOT INTRACTABLE, WITHOUT STATUS MIGRAINOSUS 07/18/2018 [facility] G43.809 OTHER MIGRAINE, NOT INTRACTABLE, WITHOUT STATUS MIGRAI NOSUS 07/18/2018 [facility] A R51 HEADACHE 08/22/2018 EARL ARAGON [...] 2 NAUSEA WITH VOMITING, UNSPECIFIED 08/23/2018 EARL ARGAON JOEL T Ot R51 HEADACHE 08/23/2018 EARL [...] Z87.891 PERSONAL HISTORY OF NICOTINE DEPENDENCE 08/23/2018 AFRHAT RESENDIZ, SABINA Purdy Ot Z88.2 ALLERGY STATUS [...] Z88.2 ALLERGY STATUS TO SULFONAMIDES STATUS 03/21/2019 SUSAAN LOPEZ MD Ot Z88.5 ALLERGY STATUS TO [...] ALLERGY STATUS TO OTH DRUG/MEDS/BIOL SUB 05/23/2019 CANID TOM DO Ot Z90.710 ACQUIRED ABSENCE OF BOTH CERVIX AND UTER 05/27/2019 HENOK BELTRAN MD Ot F41.9 ANXIETY DISORDER, UNSPECIFIED 05/27/2019 HENKO BELTRAN MD Ot G43.909 MIGRAINE, UNSP, NOT [...] STATUS TO SULFONAMIDES STATUS 06/25/2019 JOSIE RESENDIZ NEOM A Ot Z88. 5 ALLERGY STATUS TO [...] 2 ALLERGY STATUS TO SULFONAMIDES STATUS 06/30/2019 JOSIE RESENDIZ, NEMO Gottlieb Ot Z88. 5 ALLERGY STATUS TO NARCOTIC AGENT STATUS 06/30/2019 JOSIE RESENDIZ, NEMO Gottlieb Ot Z88. 8 ALLERGY STATUS TO OTH DRUG/MEDS/BIOL SUB 06/30/2019 JOSIE RESENDIZ, NEMO Gottlieb Ot Z90.710 ACQUIRED ABSENCE OF BOTH CERVIX AND UTER 08/13/2019 [facility], MELANIE L Ot F41 .9 ANXIETY DISORDER, UNSPECIFIED 08/13/2019 [facility], MELANIE L Ot R51 HEADACHE 08/13/2019 [facility], MELANIE L Ot Z86.69 PERSONAL HISTORY OF DIS OF THE NERVOUS S 08/13/2019 [facility], MELANIE L Ot Z88 .2 ALLERGY STATUS TO SULFONAMIDES STATUS 08/13/2019 [facility], MELANIE Mead Ot Z88 .5 ALLERGY STATUS TO NARCOTIC AGENT STATUS 08/13/2019 [facility], MELANIE L Ot Z88 .8 ALLERGY STATUS TO OTH DRUG/MEDS/BIOL SUB 08/13/2019 [facility], MELANIE L Ot Z90.710 ACQUIRED ABSENCE OF BOTH CERVIX AND UTER 08/14/2019 JOHN RESENDIZ, SUSANA Ramachandran Ot G43.0 09 MIGRAINE W/O AURA, NOT INTRACTABLE, W/O 08/14/2019 SUSANA LOPEZ MD Ot G43.9 09 MIGRAINE, UNSP, NOT INTRACTABLE, WITHOUT 08/14/2019 SUSANA LOPEZ MD Ot Z88.2 ALLERGY STATUS TO SULFONAMIDES STATUS 08/14/2019 SUSANA LOPEZ MD Ot Z88.5 ALLERGY STATUS TO NARCOTIC AGENT STATUS 08/14/2019 SUSANA LOPEZ MD Ot Z88.8 ALLERGY STATUS TO OTH DRUG/MEDS/BIOL SUB 08/14/2019 SUSANA LOPEZ MD Ot Z90.7 10 ACQUIRED ABSENCE OF BOTH CERVIX AND UTER 08/27/2019 [facility] DO, MARY BETH Carrillo Ot G43.7 09 CHRONIC MIGRAINE W/O AURA, NOT INTRACTAB 08/27/2019 [facility] DO, MARY BETH Gerardo Ot R51 HEADACHE 08/27/2019 [facility], MARY BETH Carrlilo Ot Z88.1 ALLERGY STATUS TO OTHER ANTIBIOTIC AGENT 08/27/2019 [facility], MARY BETH B Ot Z88.2 ALLERGY STATUS TO SULFONAMIDES STATUS 08/27/2019 MARY BETH ALEMAN DO Ot Z88.5 ALLERGY STATUS TO NARCOTIC AGENT STATUS 08/27/2019 MARY BETH ALEMAN DO Ot Z88.8 ALLERGY STATUS TO OTH DRUG/MEDS/BIOL SUB Procedures There is no data. Results Test [...] Status Pt. Type Provider Facility Loc./Unit Complaint [id number] 08/28/2019 15:30:00 08/28/2019 23:59: 59 [facility] Outpatient WENCESLAO PARIS [facility] [id number] 04/16/2019 07:30:00 Document Registration [id number] 01/29/2019 18:20:00 Document Registration [id number] 12/12/2018 14:15:00 Document Registration [id number] 11/07/2018 17:20:00 Document Registration [id number] 10/25/2018 16:10:00 Document Registration [id number] 10/12/2018 16:20:00 Document Registration [id number] 06/23/2018 04:07:00 [facility] [id number] 06/22/2018 22:07:00 ACT Unknown [facility] [id number] 03/24/2018 19:16:00 ACT Unknown ROYCE LUBIN [facility] NSER HEADACHE [id number] 01/09/2017 18:47:00 ACT Unknown REDD GASTELUM [facility] NSER HEADACHE [id number] 01/07/2017 21:26:00 ACT Unknown Alma Rosa ADEN [facility] NSER HEADACHE [id number] 06/24/2016 20:12:00 ACT Unknown LEIDA AKHTAR [facility] NSER HEADACHE [id number] 06/26/2015 20:27:00 ACT Unknown JC LLANES [id number] 08/27/2019 01:02:00 01:24:00 DIS Emergency VERONICA LORA DO [facility] ER FS MIGRAINE [id number] 08/25/2019 03:50:00 05:08:00 DIS Outpatient MARY BETH ALEMAN DO [facility] ER FS HEADACHE [id number] 08/12/2019 03:28:00 03:53:00 DIS Outpatient SUSANA LOPEZ MD [facility] ER FS MIGRAINE [id number] 08/10/2019 23:52:00 00:24:00 DIS Outpatient MELANIE BERNABE DO [facility] FS HEADACHE [id number] 08/03/2019 19:30:00 20:55:00 DIS Emergency SUSANA LOPEZ MD [facility] ER FS HEADACHE [id number] 06/25/2019 00:00:00 00:47:00 DIS Emergency JOSIE RESENDIZ, NEMO Gottlieb [facility] ER FS MIGRAINE [id number] 06/24/2019 18:43:00 19:38:00 DIS Emergency JOSIE RESENDIZ, NEMO Gottlieb [facility] ER FS MIGRAINE, N/V [id number] 06/15/2019 00:15:00 00:48:00 DIS Emergency HENOK BELTRAN MD [facility] ER FS HEADACHE/NAUSEA/VOMITTI NG [id number] 05/30/2019 17:25:00 18:36:00 DIS Emergency NEMO GALINDO MD [facility] ER FS MIGRAINE [id number] 05/27/2019 18:38:00 19:28:00 DIS Emergency HENOK BELTRAN MD [facility] ER FS MIGRAINE SYMPTOMS [id number] 05/20/2019 18:38:00 19:20:00 DIS Emergency VAISHALI CANDI Carrillo [facility] ER FS HEADACHE [id number] 05/16/2019 18:57:00 19:30:00 DIS Emergency ROVENSTINE DO HERON L [facility] ER FS MIGRAINE [id number] 05/04/2019 22:14:00 23:07:00 DIS Emergency SUSANA LOPEZ MD [facility] ER FS MIGRAINE [id number] 04/21/2019 01:30:00 01:54:00 DIS Emergency JOSIE RESENDIZ, NEMO Gottlieb [facility] ER FS HEADACHE,COUGH [id number] 04/12/2019 03:14:00 03:52:00 DIS Emergency SUSANA LOPEZ MD [facility] ER FS MIGRAINE SYMPTOMS [id number] 04/08/2019 00:35:00 01:59:00 DIS Emergency JOSIE RESENDIZ, NEMO Gottlieb [facility] ER FS MIGRAINE [id number] 03/19/2019 01:52:00 03:48:00 DIS Outpatient SUSANA LOPEZ MD [facility] ER FS SEVERE MIGRAINE [id number] 03/14/2019 16:52:00 17:38:00 DIS Emergency ROVENSTINE HERON ARAGON [facility] ER FS HEADACHE [id number] 01/30/2019 11:34:00 13:44:00 DIS Emergency SUSANA LOPEZ MD [facility] ER FS HEADACHE; VOMITING [id number] 01/01/2019 10:21:00 11:30:00 DIS Emergency TRISTEN LANDRY DO [facility] ER FS HEADACHE [id number] 12/23/2018 18:47:00 20:51:00 DIS Emergency VERONICA LORA DO [facility] ER FS MIGRAINE [id number] 2018 15:36:00 16:30:00 DIS Emergency KATIA LIRIANO DO [facility] ER FS MIGRAINE;NAUSEA;VOMITIN G [id number] 10/31/2018 16:57:00 18:30:00 DIS Emergency JUSTIN RESENDIZ, JAXSON Mejia [facility] ER FS HEADACHE [id number] 10/24/2018 15:25:00 23:59:59 [facility] Outpatient RAINA RESENDIZ, WENCESLAO Medina [facility] RAD FS M54.41 [id number] 08/22/2018 09:55:00 12:18:00 DIS Emergency FARHAT RESENDIZ, SABINA gottlieb [facility] ER FS HEADACHE [id number] 08/21/2018 21:49:00 00:46:00 DIS Emergency JOEL ELLIOTT DO [facility] ER FS MIGRAINE, NAUSEA, SENSI TIVE TO LIGHT AND SMELLS
== END 2019-08-27 01:24 | disposition home or self-care (01) ==
LOC: EDUNIT# 01:01 → ER FS 01:02
DX: G43.909 Migraine, unspecified, not intractable, without status migrainosus (principal); Z88.2 Allergy status to sulfonamides; Z88.1 Allergy status to other antibiotic agents; Z88.5 Allergy status to narcotic agent; Z88.8 Allergy status to other drugs, medicaments and biological substances
CPT/HCPCS: 99284

== ENCOUNTER 2019-09-02 18:33 | Emergency (ER) | payer MEDICARE, OTHER ==
[~2019-09-02] VITALS: Ht 170 cm; Wt 68.3 kg
[2019-09-02 18:38] VITALS: BP 124/74
--- NOTE | 2019-09-02 18:55 | ED Headache ---
General Chief Complaint: Head/Cervical Problems Stated Complaint: MIGRAINE,NAUSEA,VOMITING Nursing Triage Note: AMBULATED TO TRIAGE WITH COMPLAINTS OF MIGRAINE SINCE YESTERDAY. SHE SAW DR ELI YESTERDAY AND RECIEVED, TORADOL, PHENRGAN, AND BENADRYL. STATES THE MIGRANIE IS WORSE TODAY. Nursing Sepsis Screen: No Definite Risk History of Present Illness Date Seen by Provider: Sep 02, 2019 Time Seen by Provider: 18:50 Initial Comments This patient is a 38-year-old female presents to the emergency department with complaint of her chronic migraine headache. The left side. Patient has numerous visits to the emergency department for the same. Patient also has multiple allergies. Patient states she takes Benadryl and Phenergan and Remeron and Ativan for her headaches at home but nothing has helped. Patient states she has not followed up with her neurologist. He is in [place] and did not go her PCPs office today. We did discuss at length with patient about different options. Patient will be given a shot of Toradol and Benadryl for her headache. We'll write her prescription for Fioricet. Patient be discharged home with follow-up with PCP patient should be in a cool dark place. Plenty rest. Patient states understanding she be discharged home. Timing/Duration: 4-6 hours Severity/Quality: moderate Location: frontal Prior Headaches/Recent Trauma: frequent headaches Modifying Factors: worse with medication Associated Symptoms: No denies symptoms, No confusion, No fatigue, No facial pain, No fever/chills, No flushing, No loss of consciousness, No nausea/vomiting, No nasal congestion, No nasal drainage, No numbness in legs/feet, No rash, No seizures, No sinus infection, No stiff neck, No vision changes, No weakness, No other Allergies and Home Medications Allergies Coded Allergies: Sulfa (Sulfonamide Antibiotics) (Verified Allergy, Mild, Itching, 03/14/19) cefuroxime (Verified Allergy, Unknown, 08/21/18) haloperidol (Verified Allergy, Unknown, 10/31/18) magnesium (Verified Allergy, Unknown, 08/21/18) prochlorperazine (Verified Allergy, Unknown, rash, 08/21/18) topiramate (Verified Allergy, Unknown, 08/21/18) tramadol (Verified Allergy, Unknown, 10/31/18) Uncoded Allergies: DHE (Allergy, Unknown, 10/31/18) Home Medications Cyclobenzaprine HCl 10 Mg Tablet, 10 MG PO Q8H PRN for SPASMS Prescribed by: JAXSON ANDERSON on 10/31/18 181 Patient Home Medication List Home Medication List Reviewed: Yes Review of Systems Review of Systems Constitutional: no symptoms reported, see HPI Ears, Nose, Mouth, Throat: no symptoms reported, see HPI Respiratory: no symptoms reported; No see HPI, No cough, No dyspnea on exertion, No hemoptysis; orthopnea; No phlegm, No short of breath, No stridor, No wheezing, No other Cardiovascular: no symptoms reported, edema Gastrointestinal: no symptoms reported, constipation, diarrhea, nausea Genitourinary: no symptoms reported Musculoskeletal: no symptoms reported All Other Systems Reviewed Negative Unless Noted: Yes Past Qmuzqoy-Ooruyu-Fntfws Hx Patient Social History Alcohol Use: Occasionally Uses Recreational Drug Use: No Smoking Status: Unknown if Ever Smoked 2nd Hand Smoke Exposure: No Recent Foreign Travel: No Contact w/Someone Who Travel: No Recent Infectious Disease Expo: No Recent Hopitalizations: No Seasonal Allergies Seasonal Allergies: No Past Medical History Surgeries: Yes 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 Respiratory: No Cardiac: No Neurological: Yes 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 oz. 70.298812gv; 23.00 BMI Method:Stated General Appearance: WD/WN, no apparent distress HEENT: PERRL/EOMI, normal ENT inspection, TMs normal, pharynx normal Neck: non-tender, full range of motion, supple, normal inspection Cardiovascular: normal peripheral pulses, regular rate, rhythm, no edema, no gallop, no JVD, no murmur Respiratory: chest non-tender, lungs clear, normal breath sounds, no respiratory distress, no accessory muscle use Gastrointestinal: normal bowel sounds, non tender, soft, no organomegaly, no pulsatile mass Back: normal inspection, no CVA tenderness, no vertebral tenderness Extremities: normal range of motion, non-tender, normal inspection, no pedal edema, no calf tenderness, normal capillary refill, pelvis stable Crainal Nerves: normal hearing, normal speech, PERRL Coordination/Gait: normal finger to nose, normal gait Motor/Sensory: no motor deficit, no sensory deficit, no pronator drift, negative Babinski's sign Progress/Results/Core Measures Results/Orders Vital Signs/I&O 09/02/19 18:38 Temp 36.8 Pulse 76 Resp 14 B/P (MAP) 124/74 (91) Pulse Ox 94 Blood Pressure Mean: 91 Departure Impression Primary Impression: Migraine Disposition: 01 HOME, SELF-CARE Condition: Unchanged Departure-Patient Inst. Decision time for Depature: 18:54 Referrals: WENCESLAO PARIS MD (PCP/Family) Primary Care Physician Patient Instructions: Migraine Headache (DC) Add. Discharge Instructions: Discharged home take Benadryl Q8 hours when necessary as needed. May continue at home with Fioricet prescription as written. Discussed at length with your PCP about possible happen prescriptions for acute migraines including Maxalt, Midrin, or Imitrex. He'll be discharged home follow up with PCP or your neurologist in 3-5 days. All discharge instructions reviewed with patient and/or family. Voiced understanding. Scripts Butalbital/Aspirin/Caffeine (Fiorinal 50-325-40 mg Capsule) 1 Each Capsule 1 EACH PO TID PRN for Headache for 7 Days, #10 CAP 0 Refills Prov: MELANIE CLAYTON MD 09/02/19 MELANIE CLAYTON MD Sep 02, 2019 18:55
[2019-09-02] MEDS ORDERED: BUTA1CAP17 PO (18:56)
--- NOTE | 2019-09-02 18:57 | NUR ---
REPORT GIVEN TO
[2019-09-02] MEDS ORDERED: KETOROLAC 60 MG/2 ML VIAL IM ONE (19:00)
[2019-09-02] MEDS ORDERED: diphenhydrAMINE 50 MG/ML INJ (BENADRYL) IM ONE (19:00)
[2019-09-02] MEDS ORDERED: diphenhydrAMINE 50 MG/ML INJ (BENADRYL) ONE (19:02)
[2019-09-02] MEDS ORDERED: KETOROLAC 60 MG/2 ML VIAL ONE (19:03)
--- OUTSIDE RECORDS SUMMARY | 2019-09-04 22:14 | XMS REPORT | Continuity of Care Document ---
Author Organization Unknown Address Unknown Phone Unavailable Allergies Active Description Code Type Severity Reaction Onset Reported/Identified Relationship to Patient Clinical Status Yes Sulfa (Sulfonamides) 491 Unknown N/A 06/24/2016 Yes Ceftin 3716 Unknown N/A 03/24/2018 Yes Compazine 3622 Unknown N/A 03/24/2018 Yes Magnesium 784 Unknown N/A 03/24/2018 Yes Topamax 01473 Unknown N/A 03/24/2018 Yes SULFA SULFA Mild itchy 08/21/2018 Yes cefuroxime [id number] Drug Allerg y Unknown N/A 08/21/2018 Yes magnesium [id number] Drug Allergy Unknown N/A 08/21/2018 Yes No Known Drug Allergies [id number] Drug Allergy Unknown N/A 08/21/2018 Yes prochlorperazine [id number] Drug Allergy Unknown rash 08/21/2018 Yes topiramate [id number] Drug Allerg y Unknown N/A 08/21/2018 Yes DHE DHE Unknown N/A 10/31/2018 Yes haloperidol [id number] Drug Aller gy Unknown N/A 10/31/2018 Yes tramadol [id number] Drug Allergy Unknown N/A 10/31/2018 Yes Sulfa (Sulfonamide Antibiotics) M72932 0491 Drug Allergy Mild Itching 019 Medications [...] AURA, NOT INTRACTABLE, WITHOUT STATUS MIGRAINOSUS 07/18/2018 [facility] P G43.809 OTHER MIGRAINE, NOT INTRACTABLE, WITHOUT STATUS MIGRAI NOSUS 07/18/2018 [facility] A R51 HEADACHE 08/22/2018 EARL ARAGON JOEL [...] OF BOTH CERVIX AND UTER 05/30/2019 NEMO GALIDNO MD A Ot F41. 9 ANXIETY DISORDER, [...] OTHER ANTIBIOTIC AGENT 06/30/2019 JOSIE RESENDIZ, NEMO A Ot Z88. 2 ALLERGY STATUS TO SULFONAMIDES STATUS 06/30/2019 JOSIE RESENDIZ, NEMO A Ot Z88. 5 ALLERGY STATUS TO NARCOTIC AGENT STATUS 06/30/2019 JOSIE RESENDIZ, NEMO A Ot Z88. 8 ALLERGY STATUS TO OTH DRUG/MEDS/BIOL SUB 06/30/2019 JOSIE RESENDIZ, NEMO A Ot Z90.710 ACQUIRED ABSENCE OF BOTH CERVIX AND UTER 08/03/2019 JOHN RESENDIZ, SUSANA E Ot G43.9 09 MIGRAINE, UNSP, NOT INTRACTABLE, WITHOUT 08/03/2019 JOHN RESENDIZ, SUSANA E Ot R51 HEADACHE 08/03/2019 JOHN RESENDIZ, SUSANA Ramachandran Ot Z88.1 ALLERGY STATUS TO OTHER ANTIBIOTIC AGENT 08/03/2019 JOHN RESENDIZ, SUSANA E Ot Z88.2 ALLERGY STATUS TO SULFONAMIDES STATUS 08/03/2019 JOHN RESENDIZ, SUSANA E Ot Z88.5 ALLERGY STATUS TO NARCOTIC AGENT STATUS 08/03/2019 JOHN RESENDIZ, SUSANA E Ot Z88.8 ALLERGY STATUS TO OTH DRUG/MEDS/BIOL SUB 08/11/2019 BERNABE DO, MELANIE L Ot F41 .9 ANXIETY DISORDER, UNSPECIFIED 08/11/2019 BERNABE DO, MELANIE L Ot R51 HEADACHE 08/11/2019 RICHARDSON DO, MELANIE L Ot Z86.69 PERSONAL HISTORY OF DIS OF THE NERVOUS S 08/11/2019 BERNABE DO, MELANIE L Ot Z88 .2 ALLERGY STATUS TO SULFONAMIDES STATUS 08/11/2019 BERNABE DO, MELANIE L Ot Z88 .5 ALLERGY STATUS TO NARCOTIC AGENT STATUS 08/11/2019 BERNABE DO, MELANIE L Ot Z88 .8 ALLERGY STATUS TO OTH DRUG/MEDS/BIOL SUB 08/11/2019 BERNABE DO, MELANIE L Ot Z90.710 ACQUIRED ABSENCE OF BOTH CERVIX AND UTER 08/13/2019 BERNABE DO, MELANIE L Ot F41 .9 ANXIETY DISORDER, UNSPECIFIED 08/13/2019 BERNABE DO, MELANIE L Ot R51 HEADACHE 08/13/2019 BERNABE DO, MELANIE L Ot Z86.69 PERSONAL HISTORY OF DIS OF THE NERVOUS S 08/13/2019 BERNABE DO, MELANIE L Ot Z88 .2 ALLERGY STATUS TO SULFONAMIDES STATUS 08/13/2019 RICHARDSON DO, MELANIE L Ot Z88 .5 ALLERGY STATUS TO NARCOTIC AGENT STATUS 08/13/2019 RICHARDSON DO, MELANIE Mead Ot Z88 .8 ALLERGY STATUS TO OTH DRUG/MEDS/BIOL SUB 08/13/2019 RICHARDSON DO, MELANIE Mead Ot Z90.710 ACQUIRED ABSENCE OF BOTH CERVIX AND UTER 08/14/2019 JOHN RESENDIZ, SUSANA Ramachandran Ot G43.0 09 MIGRAINE W/O AURA, NOT INTRACTABLE, W/O 08/14/2019 JOHN RESENDIZ, SUSANA Ramachandran Ot G43.9 09 MIGRAINE, UNSP, NOT INTRACTABLE, WITHOUT 08/14/2019 JOHN RESENDIZ, SUSANA Ramachandran Ot Z88.2 ALLERGY STATUS TO SULFONAMIDES STATUS 08/14/2019 JOHN RESENDIZ, SUSANA Ramachandran Ot Z88.5 ALLERGY STATUS TO NARCOTIC AGENT STATUS 08/14/2019 JOHN RESENDIZ, SUSANA Ramachandran Ot Z88.8 ALLERGY STATUS TO OTH DRUG/MEDS/BIOL SUB 08/14/2019 SUSANA LOPEZ MD Ot Z90.7 10 ACQUIRED ABSENCE OF BOTH CERVIX AND UTER 08/27/2019 [place] DO, MARY BETH Carrillo Ot G43.7 09 CHRONIC MIGRAINE W/O AURA, NOT INTRACTAB 08/27/2019 [place] DO, MARY BETH Carrillo Ot R51 HEADACHE 08/27/2019 [place] DOMARY BETH Ot Z88.1 ALLERGY STATUS TO OTHER ANTIBIOTIC AGENT 08/27/2019 [place] DO, MARY BETH Carrillo Ot Z88.2 ALLERGY STATUS TO SULFONAMIDES STATUS 08/27/2019 [place] DO, MARY BETH Carrillo Ot Z88.5 ALLERGY STATUS TO NARCOTIC AGENT STATUS 08/27/2019 [place] DO, MARY BETH Carrillo Ot Z88.8 ALLERGY STATUS TO OTH DRUG/MEDS/BIOL SUB 09/01/2019 VERONICA LORA DO Ot G43.909 MIGRAINE, UNSP, NOT INTRACTABLE, WITHOUT 09/01/2019 VERONICA LORA DO Ot R51 HEADACHE 09/01/2019 VERONICA LORA DO Ot Z88 .1 ALLERGY STATUS TO OTHER ANTIBIOTIC AGENT 09/01/2019 VERONICA LORA DO Ot Z88 .2 ALLERGY STATUS TO SULFONAMIDES STATUS 09/01/2019 VERONICA LORA DO Ot Z88 .5 ALLERGY STATUS TO NARCOTIC AGENT STATUS 09/01/2019 VERONICA LORA DO Ot Z88 .8 ALLERGY STATUS TO OTH DRUG/MEDS/BIOL SUB Procedures [...] Status Pt. Type Provider Facility Loc./Unit Complaint [id number] 09/02/2019 15:20:00 ACT Outpatient WENCESLAO PARIS [facility] [id number] 04/16/2019 07:30:00 Document Registration [id number] 01/29/2019 18:20:00 Document Registration [id number] 12/12/2018 14:15:00 Document Registration [id number] 11/07/2018 17:20:00 Document Registration [id number] 10/25/2018 16:10:00 Document Registration [id number] 10/12/2018 16:20:00 Document Registration [id number] 06/23/2018 04:07:00 ACT Unknown NEW [facility] NSER HEADACHE [id number] 06/22/2018 22:07:00 ACT Unknown NEW [facility] NSER HEADACHE [id number] 03/24/2018 19:16:00 [facility] [id number] 01/09/2017 18:47:00 ACT Unknown REDD GASTELUM [facility] NSER HEADACHE [id number] 01/07/2017 21:26:00 ACT Unknown Alma Rosa [facility] NSER HEADACHE [id number] 06/24/2016 20:12:00 ACT Unknown [facility] NSER HEADACHE [id number] 06/26/2015 20:27:00 ACT Unknown JC LLANES [id number] 09/02/2019 18:34:00 020 19:21:00 DIS Emergency MATILDE RESENDIZ, MELANIE Nielson [facility] ER FS MIGRAINE,NAUSEA,VOMITIN G [id number] 08/27/2019 01:02:00 01:24:00 DIS Outpatient VERONICA LORA DO [facility] ER FS MIGRAINE [id number] 08/25/2019 03:50:00 05:08:00 DIS Outpatient MARY BETH ALEMAN DO [facility] ER FS HEADACHE [id number] 08/12/2019 03:28:00 03:53:00 DIS Outpatient SUSANA LOPEZ MD [facility] ER FS MIGRAINE [id number] 08/10/2019 23:52:00 00:24:00 DIS Emergency MELANIE BERNABE DO Via [facility] FS HEADACHE [id number] 08/03/2019 19:30:00 20:55:00 DIS Emergency SUSANA LOPEZ MD [facility] ER FS HEADACHE [id number] 06/25/2019 00:00:00 00:47:00 DIS Emergency JOSIE RESENDIZ, NEMO Gottlieb [facility] ER FS MIGRAINE [id number] 06/24/2019 18:43:00 19:38:00 DIS Emergency JOSIE RESENDIZ, NEMO Gottlieb [facility] ER FS MIGRAINE, N/V [id number] 06/15/2019 00:15:00 00:48:00 DIS Emergency HENOK BELTRAN MD [facility] ER FS HEADACHE/NAUSEA/VOMITTI NG [id number] 05/30/2019 17:25:00 18:36:00 DIS Emergency JOSIE RESENDIZ, NEMO Gottlieb [facility] ER FS MIGRAINE [id number] 05/27/2019 18:38:00 19:28:00 DIS Emergency HENOK BELTRAN MD [facility] ER FS MIGRAINE SYMPTOMS [id number] 05/20/2019 18:38:00 19:20:00 DIS Emergency CANDI TOM DO Via [facility] ER FS HEADACHE [id number] 05/16/2019 18:57:00 19:30:00 DIS Emergency ROVENSTINE HERON ARAGON [facility] ER FS MIGRAINE [id number] 05/04/2019 22:14:00 23:07:00 DIS Emergency SUSANA LOPEZ MD Via [facility] ER FS MIGRAINE [id number] 04/21/2019 01:30:00 01:54:00 DIS Emergency JOSIE RESENDIZ, NEMO Gottlieb [facility] ER FS HEADACHE,COUGH [id number] 04/12/2019 03:14:00 03:52:00 DIS Emergency SUSANA LOPEZ MD Via [facility] FS MIGRAINE SYMPTOMS [id number] 04/08/2019 00:35:00 01:59:00 DIS Emergency JOSIE ERSENDIZ, NEMO Gottlieb [facility] ER FS MIGRAINE [id number] 03/19/2019 01:52:00 03:48:00 DIS Outpatient SUSANA LOPEZ MD Via [facility] ER FS SEVERE MIGRAINE [id number] 03/14/2019 16:52:00 17:38:00 DIS Emergency ROVENSTINE HERON ARAGON [facility] ER FS HEADACHE [id number] 01/30/2019 11:34:00 13:44:00 DIS Emergency SUSANA LOPEZ MD Via [facility] ER FS HEADACHE; VOMITING [id number] 01/01/2019 10:21:00 11:30:00 DIS Emergency TRISTEN LANDRY DO Via [facility] ER FS HEADACHE [id number] 12/23/2018 18:47:00 20:51:00 DIS Emergency VERONICA LORA DO Via [facility] ER FS MIGRAINE [id number] 2018 15:36:00 16:30:00 DIS Emergency KATIA LIRIANO DO Via [facility] ER FS MIGRAINE;NAUSEA;VOMITIN G [id number] 10/31/2018 16:57:00 18:30:00 DIS Emergency JUSTIN RESENDIZ, JAXSON Mejia [facility] ER FS HEADACHE [id number] 10/24/2018 15:25:00 23:59:59 CLS Outpatient RAINA RESENDIZ, WENCESLAO Medina [facility] RAD FS M54.41 [id number] 08/22/2018 09:55:00 12:18:00 DIS Emergency FARHAT RESENDIZ, SABINA gottlieb [facility] ER FS HEADACHE [id number] 08/21/2018 21:49:00 00:46:00 DIS Emergency JOEL ELLIOTT DO Via [facility] ER FS MIGRAINE, NAUSEA, SENSI TIVE TO LIGHT AND SMELLS
== END 2019-09-02 19:21 | disposition home or self-care (01) ==
LOC: EDUNIT# 18:33 → ER FS 18:34
DX: G43.909 Migraine, unspecified, not intractable, without status migrainosus (principal); Z88.2 Allergy status to sulfonamides; Z88.1 Allergy status to other antibiotic agents; Z88.5 Allergy status to narcotic agent; Z88.8 Allergy status to other drugs, medicaments and biological substances

== ENCOUNTER 2019-09-24 18:47 | Emergency (ER) | payer MEDICARE, OTHER ==
[~2019-09-24] VITALS: Ht 170.2 cm; Wt 67.8 kg
[~2019-09-24 18:47] MED LIST changes: +BUTA1CAP17 PO
--- OUTSIDE RECORDS SUMMARY | 2019-09-24 18:56 | XMS REPORT | Continuity of Care Document ---
Author Organization Unknown Address Unknown Phone Unavailable Allergies Active Description Code Type Severity Reaction Onset Reported/Identified Relationship to Patient Clinical Status Yes Sulfa (Sulfonamides) 491 Unknown N/A 06/24/2016 Yes Ceftin 3716 Unknown N/A 03/24/2018 Yes Compazine 3622 Unknown N/A 03/24/2018 Yes Magnesium 784 Unknown N/A 03/24/2018 Yes Topamax 01462 Unknown N/A 03/24/2018 Yes SULFA SULFA Mild itchy 08/21/2018 Yes cefuroxime [id number] Drug Allerg y Unknown N/A 08/21/2018 Yes magnesium A905761553 Drug Allergy Unknown N/A 08/21/2018 Yes No Known Drug Allergies [id number] Drug Allergy Unknown N/A 08/21/2018 Yes prochlorperazine [id number] Drug Allergy Unknown rash 08/21/2018 Yes topiramate [id number] Drug Allerg y Unknown N/A 08/21/2018 Yes DHE DHE Unknown N/A 10/31/2018 Yes haloperidol P646081620 Drug Aller gy Unknown N/A 10/31/2018 Yes tramadol P411996304 Drug Allergy Unknown N/A 10/31/2018 Yes Sulfa (Sulfonamide Antibiotics) Q34931 0491 Drug Allergy Mild Itching 019 Medications [...] AURA, NOT INTRACTABLE, WITHOUT STATUS MIGRAINOSUS 07/18/2018 [facility] G[facility].809 OTHER MIGRAINE, NOT INTRACTABLE, WITHOUT STATUS MIGRAI NOSUS 07/18/2018 [facility] A R51 HEADACHE 08/22/2018 EARL [...] MIGRAINE, UNSP, NOT INTRACTABLE, WITHOUT 08/23/2018 SABINA DOUGEHRTY MD Ot Z87.891 PERSONAL HISTORY OF NICOTINE [...] Z88.2 ALLERGY STATUS TO SULFONAMIDES STATUS 12/24/2018 KATAI LIRIANO DO Ot Z88.5 ALLERGY STATUS TO [...] STATUS TO OTHER ANTIBIOTIC AGENT 04/21/2019 NEMO GALNIDO MD A Ot Z88. 2 ALLERGY STATUS [...] DO, MELANIE L Ot R51 HEADACHE 08/11/2019 [place] DO, MELANIE L Ot Z86.69 PERSONAL HISTORY [...] .2 ALLERGY STATUS TO SULFONAMIDES STATUS 08/13/2019 [place] DO, MELANIE L Ot Z88 .5 ALLERGY STATUS TO NARCOTIC AGENT STATUS 08/13/2019 [place] DO, MELANIE Mead Ot Z88 .8 ALLERGY STATUS TO OTH DRUG/MEDS/BIOL SUB 08/13/2019 [place] DO, MELANIE Mead Ot Z90.710 ACQUIRED ABSENCE [...] ACQUIRED ABSENCE OF BOTH CERVIX AND UTER 08/25/2019 [facility], MARY BETH Carrillo Ot G43.7 09 CHRONIC MIGRAINE W/O AURA, NOT INTRACTAB 08/25/2019 [place] DO, MARY BETH Carrillo Ot R51 HEADACHE 08/25/2019 [place] DO, MARY BETH Carrillo Ot Z88.1 ALLERGY STATUS TO OTHER ANTIBIOTIC AGENT 08/25/2019 [place] DO, MARY BETH Carrillo Ot Z88.2 ALLERGY STATUS TO SULFONAMIDES STATUS 08/25/2019 [facility], MARY BETH Carrillo Ot Z88.5 ALLERGY STATUS TO NARCOTIC AGENT STATUS 08/25/2019 [place] DO, MARY BETH Carrillo Ot Z88.8 ALLERGY STATUS TO OTH DRUG/MEDS/BIOL SUB 08/27/2019 VERONICA LORA DO Ot G43.909 MIGRAINE, UNSP, NOT INTRACTABLE, WITHOUT 08/27/2019 VERONICA LORA DO Ot R51 HEADACHE 08/27/2019 VERONICA LORA DO Ot Z88 .1 ALLERGY STATUS TO OTHER ANTIBIOTIC AGENT 08/27/2019 VERONICA LORA DO Ot Z88 .2 ALLERGY STATUS TO SULFONAMIDES STATUS 08/27/2019 VERONICA LORA DO Ot Z88 .5 ALLERGY STATUS TO NARCOTIC AGENT STATUS 08/27/2019 VERONICA LORA DO Ot Z88 .8 ALLERGY STATUS TO OTH DRUG/MEDS/BIOL SUB 08/27/2019 [facility], MARY BETH Carrillo Ot G43.7 09 CHRONIC MIGRAINE W/O AURA, NOT INTRACTAB 08/27/2019 [place] DO, MARY BETH Carrillo Ot R51 HEADACHE 08/27/2019 [place] DO, MARY BETH Carrillo Ot Z88.1 ALLERGY STATUS TO OTHER ANTIBIOTIC AGENT 08/27/2019 [place] DO, MARY BETH Carrillo Ot Z88.2 ALLERGY STATUS TO SULFONAMIDES STATUS 08/27/2019 [place] DO, MARY BETH Carrillo Ot Z88.5 ALLERGY STATUS TO NARCOTIC AGENT STATUS 08/27/2019 [place] DO, MARY BETH Carrillo Ot Z88.8 ALLERGY STATUS TO OTH DRUG/MEDS/BIOL SUB 09/01/2019 GUIDOVERONICA CRUZ DO Ot G43.909 MIGRAINE, UNSP, NOT INTRACTABLE, WITHOUT 09/01/2019 VERONICA LORA DO Ot R51 HEADACHE 09/01/2019 [place] , VERONICA St Ot Z88 .1 ALLERGY STATUS TO OTHER ANTIBIOTIC AGENT 09/01/2019 [place] , VERONICA St Ot Z88 .2 ALLERGY STATUS TO SULFONAMIDES STATUS 09/01/2019 GUIDOVERONICA CRUZ DO Ot Z88 .5 ALLERGY STATUS TO NARCOTIC AGENT STATUS 09/01/2019 [facility], VERONICA St Ot Z88 .8 ALLERGY STATUS TO OTH [...] Status Pt. Type Provider Facility Loc./Unit Complaint [id number] 09/10/2019 15:20:00 09/10/2019 23:59: 59 [facility] Outpatient WENCESLAO PARIS [facility] [id number] 04/16/2019 07:30:00 Document Registration [id number] 01/29/2019 18:20:00 Document Registration [id number] 12/12/2018 14:15:00 Document Registration [id number] 11/07/2018 17:20:00 Document Registration [id number] 10/25/2018 16:10:00 Document Registration [id number] 10/12/2018 16:20:00 Document Registration [id number] 06/23/2018 04:07:00 ACT Unknown TRUNG WIGGINS [facility] NSER HEADACHE [id number] 06/22/2018 22:07:00 ACT Unknown TRUNG WIGGINS [facility] NSER HEADACHE [id number] 03/24/2018 19:16:00 ACT [facility] NSER HEADACHE [id number] 01/09/2017 18:47:00 ACT Unknown REDD GASTELUM [facility] NSER HEADACHE [id number] 01/07/2017 21:26:00 ACT Unknown Alma Rosa [facility] NSER HEADACHE [id number] 06/24/2016 20:12:00 ACT Unknown [facility] NSER HEADACHE [id number] 06/26/2015 20:27:00 ACT Unknown JC LLANES [id number] 09/02/2019 18:34:00 020 19:21:00 DIS Emergency MELANIE CLAYTON MD Via [facility] ER FS MIGRAINE,NAUSEA,VOMITIN G [id number] 08/27/2019 01:02:00 01:24:00 DIS Emergency VERONICA LORA DO [facility] ER FS MIGRAINE [id number] 08/25/2019 03:50:00 020 05:08:00 DIS Emergency MARY BETH ALEMAN DO [facility] ER FS HEADACHE [id number] 08/12/2019 03:28:00 020 03:53:00 DIS Outpatient SUSANA LOPEZ MD [facility] ER FS MIGRAINE [id number] 08/10/2019 23:52:00 00:24:00 DIS Emergency MELANIE BERNABE DO [facility] ER FS HEADACHE [id number] 08/03/2019 19:30:00 20:55:00 DIS Emergency SUSANA LOPEZ MD [facility] ER FS HEADACHE [id number] 06/25/2019 00:00:00 00:47:00 DIS Emergency JOSIE RESENDIZ, NEMO Gottlieb [facility] ER FS MIGRAINE [id number] 06/24/2019 18:43:00 19:38:00 DIS Emergency JOSIE RESENDIZ, NEMO Gottlieb [facility] ER FS MIGRAINE, N/V [id number] 06/15/2019 00:15:00 00:48:00 DIS Emergency HENOK BELTRAN MD [facility] ER FS HEADACHE/NAUSEA/VOMITTI NG [id number] 05/30/2019 17:25:00 18:36:00 DIS Emergency NEMO GALINDO MD Via [facility] FS MIGRAINE [id number] 05/27/2019 18:38:00 19:28:00 DIS Emergency HENOK BELTRAN MD Via [facility] FS MIGRAINE SYMPTOMS [id number] 05/20/2019 18:38:00 19:20:00 DIS Emergency CANDI TOM DO B [facility] ER FS HEADACHE [id number] 05/16/2019 18:57:00 19:30:00 DIS Emergency ROVENSTANDRA ARAGON HERON L [facility] ER FS MIGRAINE [id number] 05/04/2019 22:14:00 23:07:00 DIS Emergency SUSANA LOPEZ MD [facility] ER FS MIGRAINE [id number] 04/21/2019 01:30:00 01:54:00 DIS Emergency NEMO GALINDO MD [facility] ER FS HEADACHE,COUGH [id number] 04/12/2019 03:14:00 03:52:00 DIS Emergency SUSANA LOPEZ MD [facility] ER FS MIGRAINE SYMPTOMS [id number] 04/08/2019 00:35:00 01:59:00 DIS Emergency NEMO GALINDO MD [facility] ER FS MIGRAINE [id number] 03/19/2019 01:52:00 03:48:00 DIS Outpatient SUSANA LOPEZ MD [facility] ER FS SEVERE MIGRAINE [id number] 03/14/2019 16:52:00 17:38:00 DIS Emergency ELFEGOVENHERON RICE DO [facility] ER FS HEADACHE [id number] 01/30/2019 11:34:00 13:44:00 DIS Emergency SUSANA LOPEZ MD [facility] ER FS HEADACHE; VOMITING [id number] 01/01/2019 10:21:00 11:30:00 DIS Emergency TRISTEN LANDRY DO [facility] ER FS HEADACHE [id number] 12/23/2018 18:47:00 20:51:00 DIS Emergency VERONICA LORA DO [facility] ER FS MIGRAINE [id number] 2018 15:36:00 16:30:00 DIS Emergency KATIA LIRIANO DO [facility] ER FS MIGRAINE;NAUSEA;VOMITIN G [id number] 10/31/2018 16:57:00 18:30:00 DIS Emergency JAXSON ANDERSON MD [facility] ER FS HEADACHE [id number] 10/24/2018 15:25:00 23:59:59 CLS Outpatient RAINA RESENDIZ, WENCESLAO Medina [facility] RAD FS M54.41 [id number] 08/22/2018 09:55:00 12:18:00 DIS Emergency FARHAT RESENDIZ, SABINA gottlieb [facility] ER FS HEADACHE [id number] 08/21/2018 21:49:00 00:46:00 DIS Emergency JOEL ELLIOTT DO Via [facility] ER FS MIGRAINE, NAUSEA, SENSI TIVE TO LIGHT AND SMELLS [id number] 09/24/2019 18:49:[address] Emergency CANDI TOM DO [facility] ER FS MIGRAINE,VOMITING
[2019-09-24 19:06] VITALS: BP 140/94
--- NOTE | 2019-09-24 19:10 | ED Headache ---
General Stated Complaint: MIGRAINE,VOMITING Source: patient History of Present Illness Date Seen by Provider: Sep 24, 2019 Time Seen by Provider: 18:55 Initial Comments The patient is a 38-year-old female who presents for evaluation of a migraine headache which is been bothering her for the last 3 days. The patient is very well-known to this emergency department and has been seen here numerous times, 3 weeks ago being the most recent visit. She has a neurologist that she is supposed to have an appointment with recently but because of the coronavirus the appointment has been getting pushed back. She often will receive Botox inject ions for her migraines. She took her normal medications at home but states it was not helping very much. This migraine began gradually. She denies any recent head injury, neck pain or stiffness, vision changes, focal weakness or numbness, vomiting, fevers or chills, or syncope. She is alert and oriented 4, calm, and appears to be in no distress this time. Timing/Duration: other (3 days) Severity/Quality: moderate Location: frontal Prior Headaches/Recent Trauma: no recent headache/trauma, frequent headaches, chronic headaches Modifying Factors: improves with exposure to light (makes it worse), improves with rest (except better) Associated Symptoms: denies symptoms Allergies and Home Medications Allergies Coded Allergies: Sulfa (Sulfonamide Antibiotics) (Verified Allergy, Mild, Itching, 03/14/19) cefuroxime (Verified Allergy, Unknown, 08/21/18) haloperidol (Verified Allergy, Unknown, 10/31/18) magnesium (Verified Allergy, Unknown, 08/21/18) prochlorperazine (Verified Allergy, Unknown, rash, 08/21/18) topiramate (Verified Allergy, Unknown, 08/21/18) tramadol (Verified Allergy, Unknown, 10/31/18) Uncoded Allergies: DHE (Allergy, Unknown, 10/31/18) Home Medications Butalbital/Aspirin/Caffeine 1 Each Capsule, 1 EACH PO TID PRN for Headache Prescribed by: MELANIE CLAYTON on 09/02/19 185 Cyclobenzaprine HCl 10 Mg Tablet, 10 MG PO Q8H PRN for SPASMS Prescribed by: JAXSON ANDERSON on 10/31/18 1810 Patient Home Medication List Home Medication List Reviewed: Yes Review of Systems Review of Systems Constitutional: no symptoms reported Eyes: No Symptoms Reported Ears, Nose, Mouth, Throat: no symptoms reported Respiratory: no symptoms reported Cardiovascular: no symptoms reported Gastrointestinal: no symptoms reported Genitourinary: no symptoms reported Musculoskeletal: no symptoms reported Skin: no symptoms reported Psychiatric/Neurological: Headache All Other Systems Reviewed Negative Unless Noted: Yes Past Nvlfdxh-Seljcb-Gmtkyz Hx Past Med/Social Hx: Reviewed Nursing Past Med/Soc Hx Patient Social History 2nd Hand Smoke Exposure: No Recent Foreign Travel: No Contact w/Someone Who Travel: No Recent Hopitalizations: No Seasonal Allergies Seasonal Allergies: No Past Medical History Surgeries: Yes 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 Respiratory: No Cardiac: No Neurological: Yes 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 oz. 70.578209tb; 23.00 BMI Method:Stated General Appearance: WD/WN, no apparent distress HEENT: PERRL/EOMI, pharynx normal Neck: non-tender, full range of motion, supple, normal inspection Cardiovascular: regular rate, rhythm, no edema, no murmur Respiratory: lungs clear, normal breath sounds, no respiratory distress Gastrointestinal: normal bowel sounds, non tender, soft Extremities: normal range of motion, non-tender, no pedal edema Psychiatric: alert, oriented x 3 Crainal Nerves: normal hearing, normal speech, PERRL Motor/Sensory: no motor deficit, no sensory deficit Skin: normal color, warm/dry Progress/Results/Core Measures Results/Orders My Orders Orders - VAISHALI CHRISTOPHER DO Promethazine Injection (Phenergan Injec (09/24/19 19:15) Ketorolac Injection (Toradol Injection) (09/24/19 19:15) Diphenhydramine Injection (Benadryl Inje (09/24/19 19:15) Vital Signs/I&O 09/24/19 19:06 Temp 36.7 Pulse 100 Resp 20 B/P (MAP) 140/94 (109) O2 Delivery Room Air Progress Progress Note : Progress Note @1915 - The patient reports that she is starting to feel better and is asking to be discharged home. Advise close follow-up with neurologist in the next few days and return to the emergency department for new or worsening symptoms. No red flags for serious headache etiology identified at this time. Advised decreasing screen time and resting in a dark room. Departure Impression Primary Impression: Migraine Disposition: 01 HOME, SELF-CARE Condition: Stable Departure-Patient Inst. Decision time for Depature: 19:20 Referrals: WENCESLAO PARIS MD (PCP/Family) Primary Care Physician Patient Instructions: Migraine Headache (DC) Add. Discharge Instructions: Take your home migraine medications as directed. Drink plenty of fluids. Rest in a dark room and minimize screen time. Return to the Emergency department for new or worsening symptoms. Follow-up with your neurologist and/or PCP in the next 1- 2 days. VAISHALI CHRISTOPHER DO Sep 24, 2019 19:10
[2019-09-24] MEDS ORDERED: KETOROLAC 60 MG/2 ML VIAL IM ONE (19:15)
[2019-09-24] MEDS ORDERED: diphenhydrAMINE 50 MG/ML INJ (BENADRYL) IM ONE (19:15)
[2019-09-24] MEDS ORDERED: PROMETHAZINE INJ 25 MG/ML (PHENERGAN) AMP IM ONE (19:15)
== END 2019-09-24 19:29 | disposition home or self-care (01) ==
LOC: EDUNIT# 18:47 → ER FS 18:49
DX: G43.909 Migraine, unspecified, not intractable, without status migrainosus (principal); F41.9 Anxiety disorder, unspecified; Z88.2 Allergy status to sulfonamides; Z88.8 Allergy status to other drugs, medicaments and biological substances
CPT/HCPCS: 99284

== ENCOUNTER 2019-10-10 05:39 | Emergency (ER) | payer MEDICARE, OTHER ==
[~2019-10-10] VITALS: Ht 170.2 cm; Wt 68.1 kg
[2019-10-10 05:48] VITALS: BP 126/76
--- OUTSIDE RECORDS SUMMARY | 2019-10-10 05:49 | XMS REPORT | Continuity of Care Document ---
Author Organization Unknown Address Unknown Phone Unavailable Allergies Active Description Code Type Severity Reaction Onset Reported/Identified Relationship to Patient Clinical Status Yes Sulfa (Sulfonamides) 491 Unknown N/A 06/24/2016 Yes Ceftin 3716 Unknown N/A 03/24/2018 Yes Compazine 3622 Unknown N/A 03/24/2018 Yes Magnesium 784 Unknown N/A 03/24/2018 Yes Topamax 90323 Unknown N/A 03/24/2018 Yes SULFA SULFA Mild itchy 08/21/2018 Yes cefuroxime [id number] Drug Allerg y Unknown N/A 08/21/2018 Yes magnesium [id number] Drug Allergy Unknown N/A 08/21/2018 Yes No Known Drug Allergies [id number] Drug Allergy Unknown N/A 08/21/2018 Yes prochlorperazine [id number] Drug Allergy Unknown rash 08/21/2018 Yes topiramate [id number] Drug Allerg y Unknown N/A 08/21/2018 Yes DHE DHE Unknown N/A 10/31/2018 Yes haloperidol [id number] Drug Aller gy Unknown N/A 10/31/2018 Yes tramadol [id number] Drug Allergy Unknown N/A 10/31/2018 Yes Sulfa (Sulfonamide Antibiotics) [id number] 0491 Drug Allergy Mild Itching 019 Medications [...] AURA, NOT INTRACTABLE, WITHOUT STATUS [facility]RAIN[facility]US [facility].809 OTHER MIGRAINE, NOT INTRACTABLE, WITHOUT STATUS MIGRAI NOSUS 07/18/2018 [facility] A R51 HEADACHE 08/22/2018 EARL ARAGON [...] ALLERGY STATUS TO NARCOTIC AGENT STATUS 04/17/2019 JOSEI RESENDIZ, NEMO A Ot Z88. 8 ALLERGY [...] STATUS TO NARCOTIC AGENT STATUS 05/07/2019 SUSANA LOEPZ MD Ot Z88.8 ALLERGY STATUS TO OTH [...] DO, MELANIE L Ot R51 HEADACHE 08/11/2019 [place] DO, MELANIE L Ot Z86.69 PERSONAL HISTORY [...] .2 ALLERGY STATUS TO SULFONAMIDES STATUS 08/13/2019 [place] DO, MELANIE L Ot Z88 .5 ALLERGY STATUS TO NARCOTIC AGENT STATUS 08/13/2019 [place] DO, MELANIE Mead Ot Z88 .8 ALLERGY STATUS TO OTH DRUG/MEDS/BIOL SUB 08/13/2019 [place] DO, MELANIE Mead Ot Z90.710 ACQUIRED ABSENCE [...] ABSENCE OF BOTH CERVIX AND UTER 08/25/2019 [facility], MARY BETH Carrillo Ot G43.7 09 CHRONIC MIGRAINE W/O AURA, NOT INTRACTAB 08/25/2019 [place] DO, MARY BETH Carrillo Ot R51 HEADACHE 08/25/2019 [place] DO, MARY BETH Carrillo Ot Z88.1 ALLERGY STATUS TO OTHER ANTIBIOTIC AGENT 08/25/2019 [place] DO, MARY BETH Carrillo Ot Z88.2 ALLERGY STATUS TO SULFONAMIDES STATUS 08/25/2019 [facility], MARY BETH Carrillo Ot Z88.5 ALLERGY STATUS TO NARCOTIC AGENT STATUS 08/25/2019 [place] DO, MARY BETH Carrillo Ot Z88.8 ALLERGY [...] ALLERGY STATUS TO OTH DRUG/MEDS/BIOL SUB 08/27/2019 [facility], MARY BETH Carrillo Ot G43.7 09 CHRONIC MIGRAINE W/O AURA, NOT INTRACTAB 08/27/2019 [place] DO, MARY BETH Carrillo Ot R51 HEADACHE 08/27/2019 [place] DO, MARY BETH Carrillo Ot Z88.1 ALLERGY STATUS TO OTHER ANTIBIOTIC AGENT 08/27/2019 [place] DO, MARY BETH Carrillo Ot Z88.2 ALLERGY STATUS TO SULFONAMIDES STATUS 08/27/2019 [place] DO, MARY BETH Carrillo Ot Z88.5 ALLERGY STATUS TO NARCOTIC AGENT STATUS 08/27/2019 [place] DO, MARY BETH Carrillo Ot Z88.8 ALLERGY STATUS TO OTH DRUG/MEDS/BIOL SUB 09/01/2019 GUIDOVERONICA CRUZ DO Ot G43.909 MIGRAINE, UNSP, NOT INTRACTABLE, WITHOUT 09/01/2019 VERONICA LORA DO Ot R51 HEADACHE 09/01/2019 [place] VERONICA ARAGON Ot Z88 .1 ALLERGY STATUS TO OTHER ANTIBIOTIC AGENT 09/01/2019 [place] VERONICA ARAGON Ot Z88 .2 ALLERGY STATUS TO SULFONAMIDES STATUS 09/01/2019 [place] VERONICA ARAGON Ot Z88 .5 ALLERGY STATUS TO NARCOTIC AGENT STATUS 09/01/2019 [place] , VERONICA St Ot Z88 .8 ALLERGY STATUS TO OTH DRUG/MEDS/BIOL SUB 09/25/2019 CANDI TOM DO Ot F41. 9 ANXIETY DISORDER, UNSPECIFIED 09/25/2019 CANDI TOM DO Ot G43.909 MIGRAINE, UNSP, NOT INTRACTABLE, WITHOUT 09/25/2019 CANDI TOM DO Ot Z88. 2 ALLERGY STATUS TO SULFONAMIDES STATUS 09/25/2019 CANDI TOM DO Ot Z88. 8 ALLERGY STATUS TO OTH DRUG/MEDS/BIOL SUB 09/26/2019 MELANIE CLAYTON MD Ot G43.909 MIGRAINE, UNSP, NOT INTRACTABLE, WITHOUT 09/26/2019 MELANIE CLAYTON MD Ot R11.2 NAUSEA WITH VOMITING, UNSPECIFIED 09/26/2019 MELANIE CLAYTON MD Ot Z88.1 ALLERGY STATUS TO OTHER ANTIBIOTIC AGENT 09/26/2019 MELANIE CLAYTON MD Ot Z88.2 ALLERGY STATUS TO SULFONAMIDES STATUS 09/26/2019 MELANIE CLAYTON MD Ot Z88.5 ALLERGY STATUS TO NARCOTIC AGENT STATUS 09/26/2019 MELANIE CLAYTON MD Ot Z88.8 ALLERGY STATUS TO OTH DRUG/MEDS/BIOL SUB 10/02/2019 CANDI TOM DO Ot F41. 9 ANXIETY DISORDER, UNSPECIFIED 10/02/2019 CANDI TOM DO Ot G43.909 MIGRAINE, UNSP, NOT INTRACTABLE, WITHOUT 10/02/2019 CANDI TOM DO Ot Z88. 2 ALLERGY STATUS TO SULFONAMIDES STATUS 10/02/2019 CANDI TOM DO Ot Z88. 8 ALLERGY STATUS TO OTH DRUG/MEDS/BIOL SUB Procedures [...] Status Pt. Type Provider Facility Loc./Unit Complaint [id number] 09/10/2019 15:20:00 09/10/2019 23:59: 59 [facility] Outpatient WENCESLAO PARIS [facility] [id number] 04/16/2019 07:30:00 Document Registration [id number] 01/29/2019 18:20:00 Document Registration [id number] 12/12/2018 14:15:00 Document Registration [id number] 11/07/2018 17:20:00 Document Registration [id number] 10/25/2018 16:10:00 Document Registration [id number] 10/12/2018 16:20:00 Document Registration [id number] 06/23/2018 04:07:00 ACT Unknown TRUNG WIGGINS [facility] NSER HEADACHE [id number] 06/22/2018 22:07:00 ACT Unknown TRUNG WIGGINS [facility] NSER HEADACHE [id number] 03/24/2018 19:16:00 [facility] [id number] 01/09/2017 18:47:00 ACT Unknown REDD GASTELUM [facility] NSER HEADACHE [id number] 01/07/2017 21:26:00 ACT Unknown Alma Rosa ADEN A-ED [facility] NSER HEADACHE [id number] 06/24/2016 20:12:00 ACT Unknown LEIDA AKHTAR [facility] NSER HEADACHE [id number] 06/26/2015 20:27:00 ACT Unknown JC LLANES [id number] 09/24/2019 18:49:00 19:29:00 DIS Outpatient CANDI TOM DO [facility] FS MIGRAINE,VOMITING [id number] 09/02/2019 18:34:00 19:21:00 DIS Outpatient MELANIE CLAYTON MD Via [facility] FS MIGRAINE,NAUSEA,VOMITIN G [id number] 08/27/2019 01:02:00 01:24:00 DIS Emergency VERONICA LORA DO [facility] FS MIGRAINE [id number] 08/25/2019 03:50:00 05:08:00 DIS Emergency MARY BETH ALEMAN DO [facility] FS HEADACHE [id number] 08/12/2019 03:28:00 03:53:00 DIS Outpatient SUSANA LOPEZ MD [facility] FS MIGRAINE [id number] 08/10/2019 23:52:00 00:24:00 DIS Emergency MELANIE BERNABE DO [facility] ER FS HEADACHE [id number] 08/03/2019 19:30:00 20:55:00 DIS Emergency SUSANA LOPEZ MD [facility] FS HEADACHE [id number] 06/25/2019 00:00:00 00:47:00 DIS Emergency NEMO GALINDO MD [facility] FS MIGRAINE [id number] 06/24/2019 18:43:00 19:38:00 DIS Emergency NEMO GALINDO MD [facility] FS MIGRAINE, N/V [id number] 06/15/2019 00:15:00 00:48:00 DIS Emergency DEVIN RESENDIZ, HENOK Mead [facility] FS HEADACHE/NAUSEA/VOMITTI NG [id number] 05/30/2019 17:25:00 18:36:00 DIS Emergency JOSIE RESENDIZ, NEMO Gottlieb [facility] FS MIGRAINE [id number] 05/27/2019 18:38:00 19:28:00 DIS Emergency HENOK BELTRAN MD [facility] FS MIGRAINE SYMPTOMS [id number] 05/20/2019 18:38:00 19:20:00 DIS Emergency CANDI TOM DO [facility] FS HEADACHE [id number] 05/16/2019 18:57:00 19:30:00 DIS Emergency ROVENSTHERON SILVERMAN DO [facility] FS MIGRAINE [id number] 05/04/2019 22:14:00 23:07:00 DIS Emergency SUSANA LOPEZ MD [facility] FS MIGRAINE [id number] 04/21/2019 01:30:00 01:54:00 DIS Emergency JOSIE RESENDIZ, NEMO Gottlieb [facility] ER FS HEADACHE,COUGH [id number] 04/12/2019 03:14:00 03:52:00 DIS Emergency SUSANA LOPEZ MD [facility] ER FS MIGRAINE SYMPTOMS [id number] 04/08/2019 00:35:00 01:59:00 DIS Emergency JOSIE RESENDIZ, NEMO Gottlieb [facility] ER FS MIGRAINE [id number] 03/19/2019 01:52:00 03:48:00 DIS Outpatient SUSANA LOPEZ MD [facility] FS SEVERE MIGRAINE [id number] 03/14/2019 16:52:00 17:38:00 DIS Emergency ROVENSTHERON SILVERMAN DO [facility] ER FS HEADACHE [id number] 01/30/2019 11:34:00 13:44:00 DIS Emergency JOHN RESENDIZ, SUSANA Ramachandran [facility] ER FS HEADACHE; VOMITING [id number] 01/01/2019 10:21:00 11:30:00 DIS Emergency FRANTZ DO TRISTEN [facility] ER FS HEADACHE [id number] 12/23/2018 18:47:00 20:51:00 DIS Emergency GUIDO DOVERONICA [facility] ER FS MIGRAINE [id number] 2018 15:36:00 16:30:00 DIS Emergency KATIA LIRIANO DO [facility] ER FS MIGRAINE;NAUSEA;VOMITIN G [id number] 10/31/2018 16:57:00 18:30:00 DIS Emergency JUSTIN RESENDIZ, JAXSON Mejia [facility] ER FS HEADACHE [id number] 10/24/2018 15:25:00 23:59:59 CLS Outpatient RAINA RESENDIZ, WENCESLAO Medina [facility] RAD FS M54.41 [id number] 08/22/2018 09:55:00 12:18:00 DIS Emergency FARHAT RESENDIZ, SABINA gottlieb [facility] ER FS HEADACHE [id number] 08/21/2018 21:49:00 00:46:00 DIS Emergency JOEL ELLIOTT DO [facility] ER FS MIGRAINE, NAUSEA, SENSI TIVE TO LIGHT AND SMELLS
[2019-10-10] MEDS ORDERED: diphenhydrAMINE 50 MG/ML INJ (BENADRYL) IM ONE (06:15)
[2019-10-10] MEDS ORDERED: KETOROLAC 60 MG/2 ML VIAL IM ONE (06:15)
[2019-10-10] MEDS ORDERED: PROMETHAZINE INJ 25 MG/ML (PHENERGAN) AMP IM ONE (06:15)
--- NOTE | 2019-10-10 06:16 | ED Headache ---
General Chief Complaint: Head/Cervical Problems Stated Complaint: MIGRAINE Nursing Triage Note: PT AMBULATE TO ROOM FS02 WITH C/O MIGRAINE, NAUSEA, AND DIZZINESS. PT REPORTS CHRONIC MIGRAINES. Nursing Sepsis Screen: No Definite Risk Source: patient Exam Limitations: no limitations History of Present Illness Date Seen by Provider: Oct 10, 2019 Time Seen by Provider: 06:00 Initial Comments 38-year-old female presents to the emergency room for left-sided headache over the past 2 days. She has a chronic history of headache disorders. She currently receives ongoing care with Dr. Stefan Eli for her chronic pain syndrome. Patient is on a pain agreement with one of her providers. She normally receives Toradol 60 mg IM Phenergan 25 mg IM and Benadryl 25 mg IM to break the headache cycle. Patient denies any other cardiac pulmonary renal or GI disease. Patient denies recent fevers denies shortness of breath denies any travel all side of the [facility] and denies any lower respiratory tract infection symptoms. Patient has given informed consent for therapeutic services including the injection therapy. She denies seizures vision changes and normally receives E injections and then goes home to rest. She understands that sleep and hydration are critical in prevention of headaches. Timing/Duration: 24 hours Severity/Quality: moderate Location: temporal Prior Headaches/Recent Trauma: frequent headaches, chronic headaches (with no recent head trauma) Modifying Factors: improves with exposure to light (typically worsens or headaches), improves with rest (we improves her headaches) Associated Symptoms: fatigue, nausea/vomiting, weakness Allergies and Home Medications Allergies Coded Allergies: Sulfa (Sulfonamide Antibiotics) (Verified Allergy, Mild, Itching, 03/14/19) cefuroxime (Verified Allergy, Unknown, 08/21/18) haloperidol (Verified Allergy, Unknown, 10/31/18) magnesium (Verified Allergy, Unknown, 08/21/18) prochlorperazine (Verified Allergy, Unknown, rash, 08/21/18) topiramate (Verified Allergy, Unknown, 08/21/18) tramadol (Verified Allergy, Unknown, 10/31/18) Uncoded Allergies: DHE (Allergy, Unknown, 10/31/18) Home Medications Butalbital/Aspirin/Caffeine 1 Each Capsule, 1 EACH PO TID PRN for Headache Prescribed by: MELANIE CLAYTON on 09/02/19 1856 Cyclobenzaprine HCl 10 Mg Tablet, 10 MG PO Q8H PRN for SPASMS Prescribed by: JAXSON ANDERSON on 10/31/18 1810 Patient Home Medication List Home Medication List Reviewed: Yes (patient has taken Toradol and Phenergan and Benadryl in the past safely) Review of Systems Review of Systems Constitutional: see HPI, other (headache scotophobia wearing sunglasses) Eyes: No Symptoms Reported Ears, Nose, Mouth, Throat: no symptoms reported Respiratory: no symptoms reported Gastrointestinal: no symptoms reported, nausea (occasionally) Genitourinary: no symptoms reported : No (hysterectomy in the past past) Musculoskeletal: neck pain (patient reports that she has normally gets neck tightness on her left side when she has a headaches but no signs of meningismus) Skin: no symptoms reported Psychiatric/Neurological: Anxiety (and depression from chronic pain syndrome) Past Xxeziqm-Akclyg-Fksmja Hx Past Med/Social Hx: Reviewed Nursing Past Med/Soc Hx Patient Social History Alcohol Use: Denies Use Recreational Drug Use: No Smoking Status: Never a Smoker 2nd Hand Smoke Exposure: No Recent Foreign Travel: No Contact w/Someone Who Travel: No Recent Infectious Disease Expo: No Recent Hopitalizations: No Physical Abuse: No Sexual Abuse: No Mistreated: No Fear: No Seasonal Allergies Seasonal Allergies: No Past Medical History Surgeries: Yes 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 Respiratory: No Cardiac: No Neurological: Yes Headaches /Migraines 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 oz. 70.326573qd; 23.00 BMI Method:Stated General Appearance: WD/WN, moderate distress (secondary to headache pain.) HEENT: PERRL/EOMI (wearing sunglasses), normal ENT inspection Neck: full range of motion, supple, tender lateral (on the left but no meningeal signs) Cardiovascular: normal peripheral pulses, regular rate, rhythm, no edema, no gallop, no JVD, no murmur Respiratory: chest non-tender, lungs clear, normal breath sounds, no respiratory distress, no accessory muscle use Gastrointestinal: normal bowel sounds, non tender, soft, no organomegaly, no pulsatile mass Back: normal inspection, no CVA tenderness, no vertebral tenderness Extremities: normal range of motion, non-tender (able to move and change positions of the hospital ER cot), normal inspection, no pedal edema, no calf tenderness Psychiatric: alert, oriented x 3, other (distress from the chronic headaches and recurrent headache recently) Crainal Nerves: normal hearing, normal speech, other (patient wearing sunglasses) Coordination/Gait: normal gait Motor/Sensory: no motor deficit, no sensory deficit Reflexes: 2+ Bicep (R), 2+ Bicep (L) Skin: normal color, warm/dry Lymphatic: no adenopathy Progress/Results/Core Measures Results/Orders My Orders Orders - ULISSES WHITE DO Ketorolac Injection (Toradol Injection) (10/10/19 06:15) Diphenhydramine Injection (Benadryl Inje (10/10/19 06:15) Promethazine Injection (Phenergan Injec (10/10/19 06:15) Vital Signs/I&O 10/10/19 05:48 Temp 36.1 Pulse 81 Resp 17 B/P (MAP) 126/76 (93) O2 Delivery Room Air Blood Pressure Mean: 93 Departure Impression Primary Impression: Migraine Additional Impression: Headache Disposition: 01 HOME, SELF-CARE Condition: Against Medical Advice Departure-Patient Inst. Decision time for Depature: 06:22 Referrals: WENCESLAO PARIS MD (PCP/Family) Primary Care Physician SANDRA ELI MD Add. Discharge Instructions: with chronic headaches and has been given the usual protocol she receives of Toradol 60 IM Phenergan 25 IM and diphenhydramine 25 IM patient will follow- up with Dr. Eli and and Dr Hernandez in [facility] area. Patient is aware she needs to hydrate today inadequate sleep avoid bright lights and rest. Social distancing has been stressed to the patient All discharge instructions reviewed with patient and/or family. Voiced understanding. Copy Copies To 1: WENCESLAO PARIS MD; SANDRA ELI MD, ANTHONY H DO Oct 10, 2019 06:16
== END 2019-10-10 06:38 | disposition home or self-care (01) ==
LOC: EDUNIT# 05:39 → ER FS 05:42
DX: G43.909 Migraine, unspecified, not intractable, without status migrainosus (principal); Z88.2 Allergy status to sulfonamides; Z88.1 Allergy status to other antibiotic agents; Z88.5 Allergy status to narcotic agent; Z88.8 Allergy status to other drugs, medicaments and biological substances
CPT/HCPCS: 99284

== ENCOUNTER 2019-11-08 14:23 | Emergency (ER) | payer MEDICARE, OTHER ==
[~2019-11-08] VITALS: Ht 170 cm; Wt 66.7 kg
[2019-11-08] MEDS ORDERED: diphenhydrAMINE 50 MG/ML INJ (BENADRYL) IM STA (14:32)
[2019-11-08] MEDS ORDERED: KETOROLAC 60 MG/2 ML VIAL IM ONE (14:45)
--- NOTE | 2019-11-08 14:45 | ED Headache ---
General Chief Complaint: Head/Cervical Problems Stated Complaint: HEADACHE Nursing Triage Note: Patient reports having a headache since Nursing Sepsis Screen: No Definite Risk Source: patient, RN/MD, RN notes reviewed, old records Exam Limitations: no limitations History of Present Illness Date Seen by Provider: November 08, 2019 Time Seen by Provider: 14:28 Initial Comments This patient is a 38-year-old female presents to the emergency department complaining of chronic headaches. Patient states multiple medications for the same including Stadol nasal spray. Patient also receives Botox injections in her neck. Patient states headache is increased today. She is out of her nasal spray. Patient requesting Toradol and Benadryl shot for her headache. We reviewed patient's medication list. Discussed options. Patient will be given medications as requested. He'll be discharged home shortly. After shot time. Timing/Duration: 4-6 hours Severity/Quality: moderate Location: temporal, occipital Prior Headaches/Recent Trauma: no recent headache/trauma, chronic headaches Allergies and Home Medications Allergies Coded Allergies: Sulfa (Sulfonamide Antibiotics) (Verified Allergy, Mild, Itching, 03/14/19) cefuroxime (Verified Allergy, Unknown, 08/21/18) haloperidol (Verified Allergy, Unknown, 10/31/18) magnesium (Verified Allergy, Unknown, 08/21/18) prochlorperazine (Verified Allergy, Unknown, rash, 08/21/18) topiramate (Verified Allergy, Unknown, 08/21/18) tramadol (Verified Allergy, Unknown, 10/31/18) Uncoded Allergies: DHE (Allergy, Unknown, 10/31/18) Home Medications Butalbital/Aspirin/Caffeine 1 Each Capsule, 1 EACH PO TID PRN for Headache Prescribed by: MELANIE CLAYTON on 09/02/19 185 Cyclobenzaprine HCl 10 Mg Tablet, 10 MG PO Q8H PRN for SPASMS Prescribed by: JAXSON ANDERSON on 10/31/18 1810 Patient Home Medication List Home Medication List Reviewed: Yes Review of Systems Review of Systems Constitutional: No no symptoms reported; see HPI; No chills, No diaphoresis, No dizziness, No fever, No malaise, No weakness, No weight gain, No weight loss, No other Eyes: Denies No Symptoms Reported, Denies See HPI, Denies Blindness, Denies Blurred Vision, Denies Drainage, Denies Decreased Acuity, Denies Foreign Body Sensation, Denies Inflammation, Denies Pain, Denies Photophobia, Denies Previous Injury, Denies Shadows, Denies Tunnel Vision, Denies Vision Changes, Denies Contact Lenses, Denies Glasses, Denies Other Respiratory: No no symptoms reported, No see HPI, No cough, No dyspnea on exertion, No hemoptysis, No orthopnea, No phlegm, No short of breath, No stridor, No wheezing, No other Cardiovascular: No no symptoms reported, No see HPI, No chest pain, No edema, No Hx of Intervention, No palpitations, No syncope, No vascular heart diseas, No other Gastrointestinal: No RUQ, No LUQ, No RLQ, No LLQ, No no symptoms reported, No see HPI, No abdominal pain, No constipation, No diarrhea, No dysphagia, No hematemesis, No heartburn, No jaundice, No loss of appetite, No melena, No nausea, No vomiting, No other Musculoskeletal: No no symptoms reported, No see HPI, No back pain, No gout, No joint pain, No joint swelling, No muscle pain, No muscle stiffness, No muscle cramps, No muscle twitching, No muscle weakness, No neck pain, No other Skin: No no symptoms reported, No see HPI, No change in color, No change in hair/nails, No dryness, No hx of skin cancer, No lesions, No lumps, No pruritus, No rash, No other Psychiatric/Neurological: Headache All Other Systems Reviewed Negative Unless Noted: Yes Past [place] Hx Patient Social History Alcohol Use: Denies Use Recreational Drug Use: No 2nd Hand Smoke Exposure: No Recent Foreign Travel: No Contact w/Someone Who Travel: No Recent Infectious Disease Expo: No Recent Hopitalizations: No Seasonal Allergies Seasonal Allergies: No Past Medical History Surgeries: Yes 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 Respiratory: No Cardiac: No Neurological: Yes 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 oz. 70.152035vb; 23.00 BMI Method:Stated General Appearance: WD/WN, no apparent distress HEENT: PERRL/EOMI, normal ENT inspection, TMs normal, pharynx normal Neck: non-tender, full range of motion, supple, normal inspection Cardiovascular: normal peripheral pulses, regular rate, rhythm, no edema, no gallop, no JVD, no murmur Respiratory: chest non-tender, lungs clear, normal breath sounds, no respiratory distress, no accessory muscle use Gastrointestinal: normal bowel sounds, non tender, soft, no organomegaly, no pulsatile mass Back: normal inspection, no CVA tenderness, no vertebral tenderness Extremities: normal range of motion, non-tender, normal inspection, no pedal edema, no calf tenderness, normal capillary refill Skin: normal color, warm/dry Progress/Results/Core Measures Results/Orders My Orders Orders - MELANIE CLAYTON MD Diphenhydramine Injection (Benadryl Inje (11/08/19 14:32) Ketorolac Injection (Toradol Injection) (11/08/19 14:45) Vital Signs/I&O 11/08/19 14:29 Temp 36.0 Pulse 130 Resp 20 B/P (MAP) 145/94 (111) O2 Delivery Room Air Blood Pressure Mean: 111 Progress Progress Note : Time: 14:44 Progress Note Patient has received Toradol and Benadryl per her request. Patient was offered Reglan but declined. Patient be discharged home per her request with standard headache instructions. Patient will continue all of her home medications and follow up with her PCP on Sunday for any refills she Sunday. Patient is discharged home Departure Impression Primary Impression: Headache Disposition: HOME, SELF-CARE Condition: Stable Departure-Patient Inst. Decision time for Depature: 14:45 Referrals: WENCESLAO PARIS MD (PCP/Family) Primary Care Physician Patient Instructions: Headache, Adult (DC) Add. Discharge Instructions: Try to get in a cool dark place and rest. Continue with all home medications as prescribed by her PCP. If you need any refills had them refilled on Sunday morning. All discharge instructions reviewed with patient and/or family. Voiced understanding. MELANIE CLAYTON MD November 08, 2019 14:45
[2019-11-08 15:00] VITALS: BP 111/84
--- OUTSIDE RECORDS SUMMARY | 2019-11-08 15:02 | XMS REPORT | Continuity of Care Document ---
Author Organization Unknown Address Unknown Phone Unavailable Allergies Active Description Code Type Severity Reaction Onset Reported/Identified Relationship to Patient Clinical Status Yes Sulfa (Sulfonamides) 491 Unknown N/A 06/24/2016 Yes Ceftin 3716 Unknown N/A 03/24/2018 Yes Compazine 3622 Unknown N/A 03/24/2018 Yes Magnesium 784 Unknown N/A 03/24/2018 Yes Topamax 26414 Unknown N/A 03/24/2018 Yes SULFA SULFA Mild itchy 08/21/2018 Yes cefuroxime [id number] Drug Allerg y Unknown N/A 08/21/2018 Yes magnesium [id number] Drug Allergy Unknown N/A 08/21/2018 Yes No Known Drug Allergies [id number] Drug Allergy Unknown N/A 08/21/2018 Yes prochlorperazine [id number] Drug Allergy Unknown rash 08/21/2018 Yes topiramate [id number] Drug Allerg y Unknown N/A 08/21/2018 Yes DHE DHE Unknown N/A 10/31/2018 Yes haloperidol [id number] Drug Aller gy Unknown N/A 10/31/2018 Yes tramadol [id number] Drug Allergy Unknown N/A 10/31/2018 Yes Sulfa (Sulfonamide Antibiotics) A93180 0491 Drug Allergy Mild Itching 019 Medications [...] NOT INTRACTABLE, WITHOUT STATUS MIGRAINOSUS [facility]/18/2018 [facility] G[facility].809 OTHER MIGRAINE, NOT INTRACTABLE, WITHOUT STATUS MIGRAI NOSUS 07/18/2018 [facility] A R51 HEADACHE 08/22/2018 [facility]AR[facility] [...] ABSENCE OF BOTH CERVIX AND UTER 09/09/2018 DLILAN WIGGINSA L P G43.9 09 MIGRAINE, UNSPECIFIED, [...] OF BOTH CERVIX AND UTER 03/14/2019 ROVENSTINE HEORN ARAGON Ot F41.9 ANXIETY DISORDER, UNSPECIFIED 03/14/2019 [...] 9 ANXIETY DISORDER, UNSPECIFIED 04/08/2019 JOSIE RESENDIZ, ENMO A Ot R51 HEADACHE 04/08/2019 JOSIE RESENDIZ, [...] F41. 9 ANXIETY DISORDER, UNSPECIFIED 04/21/2019 JOSIE RESEDNIZ, NEMO A Ot R51 HEADACHE 04/21/2019 NEMO [...] ALLERGY STATUS TO OTHER ANTIBIOTIC AGENT 05/30/2019 EVNO GALINDO MDNT A Ot Z88. 2 ALLERGY [...] DO, MELANIE L Ot R51 HEADACHE 08/11/2019 [place] DO, MELANIE L Ot Z86.69 PERSONAL HISTORY [...] .2 ALLERGY STATUS TO SULFONAMIDES STATUS 08/13/2019 [place] DO, MELANIE L Ot Z88 .5 ALLERGY STATUS TO NARCOTIC AGENT STATUS 08/13/2019 [place] DO, MELANIE Mead Ot Z88 .8 ALLERGY STATUS TO OTH DRUG/MEDS/BIOL SUB 08/13/2019 [place] DO, MELANIE Mead Ot Z90.710 ACQUIRED ABSENCE [...] ABSENCE OF BOTH CERVIX AND UTER 08/25/2019 [facility], MARY BETH Carrillo Ot G43.7 09 CHRONIC MIGRAINE W/O AURA, NOT INTRACTAB 08/25/2019 [place] DO, MARY BETH Carrillo Ot R51 HEADACHE 08/25/2019 [place] [facility], MARY BETH Carrillo Ot Z88.1 ALLERGY STATUS TO OTHER ANTIBIOTIC AGENT 08/25/2019 [place] [facility], MARY BETH Carrillo Ot Z88.2 ALLERGY STATUS TO SULFONAMIDES STATUS 08/25/2019 [facility], MARY BETH Carrillo Ot Z88.5 ALLERGY STATUS TO NARCOTIC AGENT STATUS 08/25/2019 [place] DO, MARY BETH Carrillo Ot Z88.8 ALLERGY [...] ALLERGY STATUS TO OTH DRUG/MEDS/BIOL SUB 08/27/2019 [facility], MARY BETH Carrillo Ot G43.7 09 CHRONIC MIGRAINE W/O AURA, NOT INTRACTAB 08/27/2019 [place] DO, MARY BETH Carrillo Ot R51 HEADACHE 08/27/2019 [place] DO, MARY BETH Carrillo Ot Z88.1 ALLERGY STATUS TO OTHER ANTIBIOTIC AGENT 08/27/2019 [place] DO, MARY BETH Carrillo Ot Z88.2 ALLERGY STATUS TO SULFONAMIDES STATUS 08/27/2019 [place] DO, MARY BETH Carrillo Ot Z88.5 ALLERGY STATUS TO NARCOTIC AGENT STATUS 08/27/2019 [place] [facility], MARY BETH Carrillo Ot Z88.8 ALLERGY STATUS TO OTH DRUG/MEDS/BIOL SUB 09/01/2019 GUIDOVERONICA CRUZ DO Ot G43.909 MIGRAINE, UNSP, NOT INTRACTABLE, WITHOUT 09/01/2019 VERONICA LORA DO Ot R51 HEADACHE 09/01/2019 [place] , VERONICA St Ot Z88 .1 ALLERGY STATUS TO OTHER ANTIBIOTIC AGENT 09/01/2019 [place] VERONICA ARAGON Ot Z88 .2 ALLERGY STATUS TO SULFONAMIDES STATUS 09/01/2019 [place] VERONICA ARAGON Ot Z88 .5 ALLERGY STATUS TO NARCOTIC AGENT STATUS 09/01/2019 [place] , VERONICA St Ot Z88 .8 ALLERGY STATUS TO OTH DRUG/MEDS/BIOL SUB 09/02/2019 MELANIE CLAYTON MD Ot G43.909 MIGRAINE, UNSP, NOT INTRACTABLE, WITHOUT 09/02/2019 MATILDE RESENDIZ, MELANIE Nielson Ot R11.2 NAUSEA WITH VOMITING, UNSPECIFIED 09/02/2019 MELANIE CLAYTON MD Ot Z88.1 ALLERGY STATUS TO OTHER ANTIBIOTIC AGENT 09/02/2019 MELANIE CLAYTON MD Ot Z88.2 ALLERGY STATUS TO SULFONAMIDES STATUS 09/02/2019 MELANIE CLAYTON MD Ot Z88.5 ALLERGY STATUS TO NARCOTIC AGENT STATUS 09/02/2019 MELANIE CLAYTON MD Ot Z88.8 ALLERGY STATUS TO OTH DRUG/MEDS/BIOL SUB 09/24/2019 CANDI TOM DO Ot F41. 9 ANXIETY DISORDER, UNSPECIFIED 09/24/2019 CANDI TOM DO Ot G43.909 MIGRAINE, UNSP, NOT INTRACTABLE, WITHOUT 09/24/2019 CANDI TOM DO Ot Z88. 2 ALLERGY STATUS TO SULFONAMIDES STATUS 09/24/2019 CANDI TOM DO Ot Z88. 8 ALLERGY STATUS TO OTH DRUG/MEDS/BIOL SUB 09/25/2019 [...] 8 ALLERGY STATUS TO OTH DRUG/MEDS/BIOL SUB 10/10/2019 YESICA WHITE DOONY Yennifer Ot G43.909 MIGRAINE, UNSP, NOT INTRACTABLE, WITHOUT 10/10/2019 ULISSES WHITE DO Ot R5 1 HEADACHE 10/10/2019 ULISSES WHITE DO Ot Z88.1 ALLERGY STATUS TO OTHER ANTIBIOTIC AGENT 10/10/2019 ULISSES WHITE DO Ot Z88.2 ALLERGY STATUS TO SULFONAMIDES STATUS 10/10/2019 ULISSES WHITE DO Ot Z88.5 ALLERGY STATUS TO NARCOTIC AGENT STATUS 10/10/2019 ULISSES WHITE DO Ot Z88.8 ALLERGY STATUS TO OTH DRUG/MEDS/BIOL SUB 10/13/2019 [facility], ULISSES De Oliveira Ot G43.909 MIGRAINE, UNSP, NOT INTRACTABLE, WITHOUT 10/13/2019 [place] DO, ULISSES H Ot R5 1 HEADACHE 10/13/2019 [facility], ULISSES H Ot Z88.1 ALLERGY STATUS TO OTHER ANTIBIOTIC AGENT 10/13/2019 [facility], ULISSES H Ot Z88.2 ALLERGY STATUS TO SULFONAMIDES STATUS 10/13/2019 [facility], ULISSES H Ot Z88.5 ALLERGY STATUS TO NARCOTIC AGENT STATUS 10/13/2019 [facility], ULISSES H Ot Z88.8 ALLERGY STATUS TO OTH DRUG/MEDS/BIOL SUB 10/19/2019 [facility], ULISSES De Oliveira Ot G43.909 MIGRAINE, UNSP, NOT INTRACTABLE, WITHOUT 10/19/2019 [facility], ULISSES H Ot R5 1 HEADACHE 10/19/2019 [facility], ULISSES H Ot Z88.1 ALLERGY STATUS TO OTHER ANTIBIOTIC AGENT 10/19/2019 [facility], ULISSES H Ot Z88.2 ALLERGY STATUS TO SULFONAMIDES STATUS 10/19/2019 [facility], ULISSES H Ot Z88.5 ALLERGY STATUS TO NARCOTIC AGENT STATUS 10/19/2019 [facility], ULISSES H Ot Z88.8 ALLERGY STATUS TO OTH DRUG/MEDS/BIOL [...] Status Pt. Type Provider Facility Loc./Unit Complaint [id number] 11/06/2019 15:15:00 ACT Outpatient WENCESLAO PARIS [facility] [id number] 04/16/2019 07:30:00 Document Registration [id number] 01/29/2019 18:20:00 Document Registration [id number] 12/12/2018 14:15:00 Document Registration [id number] 11/07/2018 17:20:00 Document Registration [id number] 10/25/2018 16:10:00 Document Registration [id number] 10/12/2018 16:20:00 Document Registration [id number] 06/23/2018 04:07:00 ACT Unknown TRUNG WIGGINS [facility] NSER HEADACHE [id number] 06/22/2018 22:07:00 ACT Unknown TRUNG WIGGINS [facility] NSER HEADACHE [id number] 03/24/2018 19:16:00 [facility] [id number] 01/09/2017 18:47:00 ACT Unknown REDD GASTELUM [facility] NSER HEADACHE [id number] 01/07/2017 21:26:00 [facility] [id number] 06/24/2016 20:12:00 ACT Unknown CHARLYJOSEPH HAYESKEIRA GRIMM [facility] NSER HEADACHE [id number] 06/26/2015 20:27:00 ACT Unknown JC LLANES [id number] 10/10/2019 05:42:00 06:38:00 DIS Emergency ULISSES WHITE DO [facility] ER FS MIGRAINE [id number] 09/24/2019 18:49:00 19:29:00 DIS Emergency CANDI TOM DO [facility] ER FS MIGRAINE,VOMITING [id number] 09/02/2019 18:34:00 020 19:21:00 DIS Emergency MELANIE CLAYTON MD [facility] ER FS MIGRAINE,NAUSEA,VOMITIN G [id number] 08/27/2019 01:02:00 01:24:00 DIS Emergency VERONICA LORA DO [facility] ER FS MIGRAINE [id number] 08/25/2019 03:50:00 020 05:08:00 DIS Emergency MARY BETH ALEMAN DO [facility] ER FS HEADACHE [id number] 08/12/2019 03:28:00 03:53:00 DIS Outpatient SUSANA LOPEZ MD [facility] ER FS MIGRAINE [id number] 08/10/2019 23:52:00 00:24:00 DIS Emergency MELANIE BERNABE DO [facility] ER FS HEADACHE [id number] 08/03/2019 19:30:00 20:55:00 DIS Emergency SUSANA LOPEZ MD [facility] ER FS HEADACHE [id number] 06/25/2019 00:00:00 00:47:00 DIS Emergency JOSIE RESENDIZ, NEMO Gottlieb [facility] ER FS MIGRAINE [id number] 06/24/2019 18:43:00 19:38:00 DIS Emergency NEMO GALINDO MD [facility] ER FS MIGRAINE, N/V [id number] 06/15/2019 00:15:00 00:48:00 DIS Emergency HENOK BELTRAN MD [facility] ER FS HEADACHE/NAUSEA/VOMITTI NG [id number] 05/30/2019 17:25:00 18:36:00 DIS Emergency NEMO GALINDO MD [facility] ER FS MIGRAINE [id number] 05/27/2019 18:38:00 19:28:00 DIS Emergency HENOK BELTRAN MD [facility] ER FS MIGRAINE SYMPTOMS [id number] 05/20/2019 18:38:00 19:20:00 DIS Emergency CANDI TOM DO [facility] ER FS HEADACHE [id number] 05/16/2019 18:57:00 19:30:00 DIS Emergency ELFEGOVENHERON RICE DO [facility] ER FS MIGRAINE [id number] 05/04/2019 22:14:00 23:07:00 DIS Emergency SUSANA LOPEZ MD [facility] ER FS MIGRAINE [id number] 04/21/2019:30:00 01:54:00 DIS Emergency JOSIE RESENDIZ, NEMO Gottlieb [facility] ER FS HEADACHE,COUGH [id number] 04/12/2019 03:14:00 03:52:00 DIS Emergency SUSANA LOPEZ MD [facility] ER FS MIGRAINE SYMPTOMS [id number] 04/08/2019 00:35:00 01:59:00 DIS Emergency JOSIE RESENDIZ, NEMO Gottlieb [facility] ER FS MIGRAINE [id number] 03/19/2019 01:52:00 03:48:00 DIS Outpatient SUSANA LOPEZ MD [facility] ER FS SEVERE MIGRAINE [id number] 03/14/2019 16:52:00 17:38:00 DIS Emergency ROVENSTHERON SILVERMAN DO [facility] ER FS HEADACHE [id number] 01/30/2019 11:34:00 13:44:00 DIS Emergency JOHN RESENDIZ, SUSANA Ramachandran [facility] ER FS HEADACHE; VOMITING [id number] 01/01/2019 10:21:00 11:30:00 DIS Emergency TRISTEN LANDRY DO [facility] ER FS HEADACHE [id number] 12/23/2018 18:47:00 20:51:00 DIS Emergency VERONICA LORA DO [facility] ER FS MIGRAINE [id number] 2018 15:36:00 16:30:00 DIS Emergency KATIA LIRIANO DO [facility] ER FS MIGRAINE;NAUSEA;VOMITIN G [id number] 10/31/2018 16:57:00 18:30:00 DIS Emergency JUSTIN RESENDIZ, JAXSON Mejia [facility] ER FS HEADACHE [id number] 10/24/2018 15:25:00 23:59:59 CLS Outpatient RAINA RESENDIZ, WENCESLAO Medina [facility] RAD FS M54.41 [id number] 08/22/2018 09:55:00 019 12:18:00 DIS Emergency FARHAT RESENDIZ, SABINA gottlieb [facility] ER FS HEADACHE [id number] 08/21/2018 21:49:00 019 00:46:00 DIS Emergency JOEL ELLIOTT DO [facility] ER FS MIGRAINE, NAUSEA, SENSI TIVE TO LIGHT AND SMELLS
== END 2019-11-08 15:03 | disposition home or self-care (01) ==
LOC: EDUNIT# 14:23 → ER FS 14:24
DX: R51 Headache (principal); Z88.2 Allergy status to sulfonamides; Z88.1 Allergy status to other antibiotic agents; Z88.5 Allergy status to narcotic agent; Z88.8 Allergy status to other drugs, medicaments and biological substances; Z79.82 Long term (current) use of aspirin; Z86.69 Personal history of other diseases of the nervous system and sense organs
CPT/HCPCS: 99284

== ENCOUNTER 2019-11-29 01:18 | Emergency (ER) | payer MEDICARE ==
[~2019-11-29] VITALS: Ht 170 cm; Wt 74.0 kg
--- OUTSIDE RECORDS SUMMARY | 2019-11-29 01:26 | XMS REPORT | Continuity of Care Document ---
Author Organization Unknown Address Unknown Phone Unavailable Allergies Active Description Code Type Severity Reaction Onset Reported/Identified Relationship to Patient Clinical Status Yes Sulfa (Sulfonamides) 491 Unknown N/A 06/24/2016 Yes Ceftin 3716 Unknown N/A 03/24/2018 Yes Compazine 3622 Unknown N/A 03/24/2018 Yes Magnesium 784 Unknown N/A 03/24/2018 Yes Topamax 66269 Unknown N/A 03/24/2018 Yes SULFA SULFA Mild itchy 08/21/2018 Yes cefuroxime [id number] Drug Allerg y Unknown N/A 08/21/2018 Yes magnesium [id number] Drug Allergy Unknown N/A 08/21/2018 Yes No Known Drug Allergies [id number] Drug Allergy Unknown N/A 08/21/2018 Yes prochlorperazine [id number] Drug Allergy Unknown rash 08/21/2018 Yes topiramate [id number] Drug Allerg y Unknown N/A 08/21/2018 Yes DHE DHE Unknown N/A 10/31/2018 Yes haloperidol [id number] Drug Aller gy Unknown N/A 10/31/2018 Yes tramadol [id number] Drug Allergy Unknown N/A 10/31/2018 Yes Sulfa (Sulfonamide Antibiotics) [id number] Drug Allergy Mild Itching 019 Medications [...] AURA, NOT INTRACTABLE, WITHOUT STATUS [facility]RAIN[facility]US [facility].809 OTHER MIGRAINE, NOT INTRACTABLE, [...] Z88.2 ALLERGY STATUS TO SULFONAMIDES STATUS 01/07/2019 [place] DO, TRISTEN Ot Z88.5 ALLERGY STATUS TO [...] ALLERGY STATUS TO NARCOTIC AGENT STATUS 06/24/2019 JOSEI RESENDIZ, NEMO A Ot Z88. 8 [...] DO, MELANIE L Ot R51 HEADACHE 08/11/2019 [place] DO, MELANIE L Ot Z86.69 PERSONAL HISTORY [...] .2 ALLERGY STATUS TO SULFONAMIDES STATUS 08/13/2019 [place] DO, MELANIE L Ot Z88 .5 ALLERGY STATUS TO NARCOTIC AGENT STATUS 08/13/2019 [place] DO, MELANIE Mead Ot Z88 .8 ALLERGY STATUS TO OTH DRUG/MEDS/BIOL SUB 08/13/2019 [place] DO, MELANIE Mead Ot Z90.710 ACQUIRED ABSENCE [...] ABSENCE OF BOTH CERVIX AND UTER 08/25/2019 [facility], MARY BETH Carrillo Ot G43.7 09 CHRONIC MIGRAINE W/O AURA, NOT INTRACTAB 08/25/2019 [place], MARY BETH Carrillo Ot R51 HEADACHE 08/25/2019 [place] DO, MARY BETH Carrillo Ot Z88.1 ALLERGY STATUS TO OTHER ANTIBIOTIC AGENT 08/25/2019 [place] DO, MARY BETH Carrillo Ot Z88.2 ALLERGY STATUS TO SULFONAMIDES STATUS 08/25/2019 [facility], MARY BETH Carrillo Ot Z88.5 ALLERGY STATUS TO NARCOTIC AGENT STATUS 08/25/2019 [place] DO, MARY BETH Carrillo Ot Z88.8 ALLERGY [...] ALLERGY STATUS TO OTH DRUG/MEDS/BIOL SUB 08/27/2019 [facility], MARY BETH Carrillo Ot G43.7 09 CHRONIC MIGRAINE W/O AURA, NOT INTRACTAB 08/27/2019 [place] DO, MARY BETH Carrillo Ot R51 HEADACHE 08/27/2019 [place] DO, MARY BETH Carrillo Ot Z88.1 ALLERGY STATUS TO OTHER ANTIBIOTIC AGENT 08/27/2019 [place] DO, MARY BETH Carrillo Ot Z88.2 ALLERGY STATUS TO SULFONAMIDES STATUS 08/27/2019 [place] DO, MARY BETH Carrillo Ot Z88.5 ALLERGY STATUS TO NARCOTIC AGENT STATUS 08/27/2019 [place] DO, MARY BETH Carrillo Ot Z88.8 ALLERGY STATUS TO OTH DRUG/MEDS/BIOL SUB 09/01/2019 GUIDOVERONICA CRUZ DO Ot G43.909 MIGRAINE, UNSP, NOT INTRACTABLE, WITHOUT 09/01/2019 VERONICA LORA DO Ot R51 HEADACHE 09/01/2019 [place] , VERONICA St Ot Z88 .1 ALLERGY STATUS TO OTHER ANTIBIOTIC AGENT 09/01/2019 [place] VERONICA ARAGON Ot Z88 .2 ALLERGY STATUS TO SULFONAMIDES STATUS 09/01/2019 [facility] VERONCIA ARAGON Ot Z88 .5 ALLERGY STATUS TO NARCOTIC AGENT STATUS 09/01/2019 [place] , VERONICA St Ot Z88 .8 ALLERGY [...] ALLERGY STATUS TO OTH DRUG/MEDS/BIOL SUB 10/13/2019 [facility] DO, ULISSES De Oliveira Ot G43.909 MIGRAINE, UNSP, NOT INTRACTABLE, WITHOUT 10/13/2019 [place] DO, ULISSES H Ot R5 1 HEADACHE 10/13/2019 [facility], ULISSES H Ot Z88.1 ALLERGY STATUS TO OTHER ANTIBIOTIC AGENT 10/13/2019 [facility] DO, ULISSES H Ot Z88.2 ALLERGY STATUS TO SULFONAMIDES STATUS 10/13/2019 [facility] DO, ULISSES H Ot Z88.5 ALLERGY STATUS TO NARCOTIC AGENT STATUS 10/13/2019 [facility] DO, ULISSES H Ot Z88.8 ALLERGY STATUS TO OTH DRUG/MEDS/BIOL SUB 10/19/2019 [facility], ULISSES De Oliveira Ot G43.909 MIGRAINE, UNSP, NOT INTRACTABLE, WITHOUT 10/19/2019 [facility], ULISSES H Ot R5 1 HEADACHE 10/19/2019 [facility], ULISSES H Ot Z88.1 ALLERGY STATUS TO OTHER ANTIBIOTIC AGENT 10/19/2019 [facility], ULISSES H Ot Z88.2 ALLERGY STATUS TO SULFONAMIDES STATUS 10/19/2019 [facility], ULISSES H Ot Z88.5 ALLERGY STATUS TO NARCOTIC AGENT STATUS 10/19/2019 [facility], ULISSES H Ot Z88.8 ALLERGY STATUS [...] Status Pt. Type Provider Facility Loc./Unit Complaint [id number] 11/25/2019 14:00:00 11/25/2019 23:59: 59 CLS Outpatient WENCESLAO PARIS [facility] [id number] 04/16/2019 07:30:00 Document Registration [id number] 01/29/2019 18:20:00 Document Registration [id number] 12/12/2018 14:15:00 Document Registration [id number] 11/07/2018 17:20:00 Document Registration [id number] 10/25/2018 16:10:00 Document Registration [id number] 10/12/2018 16:20:00 Document Registration [id number] 06/23/2018 04:07:00 ACT Unknown TRUNG WIGGINS [facility] NSER HEADACHE [id number] 06/22/2018 22:07:00 ACT Unknown TRUNG WIGGINS [facility] NSER HEADACHE [id number] 03/24/2018 19:16:00 [facility] [id number] 01/09/2017 18:47:00 ACT Unknown GASTELUMREDD [facility] NSER HEADACHE [id number] 01/07/2017 21:26:00 ACT [facility] [id number] 06/24/2016 20:12:00 ACT Unknown LEIDA AKHTAR [facility] NSER HEADACHE [id number] 06/26/2015 20:27:00 ACT Unknown JC LLANES R [id number] 11/08/2019 14:24:00 15:03:00 DIS Emergency MELANIE CLAYTON MD Via [facility] ER FS HEADACHE [id number] 10/10/2019 05:42:00 06:38:00 DIS Emergency ULISSES WHITE DO Via [facility] ER FS MIGRAINE [id number] 09/24/2019 18:49:00 19:29:00 DIS Emergency CANDI TOM DO Via [facility] ER FS MIGRAINE,VOMITING [id number] 09/02/2019 18:34:00 19:21:00 DIS Emergency MELANIE CLAYTON MD Via [facility] ER FS MIGRAINE,NAUSEA,VOMITIN G [id number] 08/27/2019 01:02:00 01:24:00 DIS Emergency VERONICA LORA DO Via [facility] ER FS MIGRAINE [id number] 08/25/2019 03:50:00 05:08:00 DIS Emergency MARY BETH ALEMAN DO B Via [facility] ER FS HEADACHE [id number] 08/12/2019 03:28:00 03:53:00 DIS Outpatient SUSANA LOPEZ MD Via [facility] ER FS MIGRAINE [id number] 08/10/2019 23:52:00 00:24:00 DIS Emergency MELANIE BERNABE DO Via [facility] ER FS HEADACHE [id number] 08/03/2019 19:30:00 20:55:00 DIS Emergency SUSANA LOPEZ MD Via [facility] ER FS HEADACHE [id number] 06/25/2019 00:00:00 00:47:00 DIS Emergency JOSIE RESENDIZ, NEMO Gottlieb [facility] ER FS MIGRAINE [id number] 06/24/2019 18:43:00 19:38:00 DIS Emergency NEMO GALINDO MD Via [facility] ER FS MIGRAINE, N/V [id number] 06/15/2019 00:15:00 00:48:00 DIS Emergency HENOK BELTRAN MD Via [facility] ER FS HEADACHE/NAUSEA/VOMITTI NG [id number] 05/30/2019 17:25:00 18:36:00 DIS Emergency NEMO GALINDO MD Via [facility] ER FS MIGRAINE [id number] 05/27/2019 18:38:00 19:28:00 DIS Emergency HENOK BELTRAN MD Via [facility] ER FS MIGRAINE SYMPTOMS [id number] 05/20/2019 18:38:00 19:20:00 DIS Emergency CANDI TOM DO Via [facility] ER FS HEADACHE [id number] 05/16/2019 18:57:00 19:30:00 DIS Emergency ROVENSTHERON SILVERMAN DO Via [facility] ER FS MIGRAINE [id number] 05/04/2019 22:14:00 23:07:00 DIS Emergency SUSANA LOPEZ MD Via [facility] ER FS MIGRAINE [id number] 04/21/2019 01:30:00 01:54:00 DIS Emergency JOSIE RESENDIZ, NEMO Gottlieb [facility] ER FS HEADACHE,COUGH [id number] 04/12/2019 03:14:00 03:52:00 DIS Emergency SUSANA LOPEZ MD Via [facility] FS MIGRAINE SYMPTOMS [id number] 04/08/2019 00:35:00 01:59:00 DIS Emergency JOSIE RESENDIZ, NEMO Gottlieb [facility] ER FS MIGRAINE [id number] 03/19/2019 01:52:00 03:48:00 DIS Outpatient SUSANA LOPEZ MD Via [facility] ER FS SEVERE MIGRAINE [id number] 03/14/2019 16:52:00 17:38:00 DIS Emergency ROVENSTHERON SILVERMAN DO Via [facility] ER FS HEADACHE [id number] 01/30/2019 11:34:00 13:44:00 DIS Emergency SUSANA LOPEZ MD Via [facility] ER FS HEADACHE; VOMITING [id number] 01/01/2019 10:21:00 11:30:00 DIS Emergency TRISTEN LANDRY DO Via [facility] ER FS HEADACHE [id number] 12/23/2018 18:47:00 20:51:00 DIS Emergency VERONICA LORA DO Via [facility] ER FS MIGRAINE [id number] 2018 15:36:00 16:30:00 DIS Emergency KATIA LIRIANO DO Via [facility] ER FS MIGRAINE;NAUSEA;VOMITIN G [id number] 10/31/2018 16:57:00 18:30:00 DIS Emergency JUSTIN RESENDIZ, JAXSON Mejia Via [facility] ER FS HEADACHE [id number] 10/24/2018 15:25:00 23:59:59 CLS Outpatient RAINA RESENDIZ, WENCESLAO Medina Via [facility] RAD FS M54.41 [id number] 08/22/2018 09:55:00 12:18:00 DIS Emergency FARHAT RESENDIZ, SABINA gottlieb [facility] ER FS HEADACHE [id number] 08/21/2018 21:49:00 00:46:00 DIS Emergency JOEL ELLIOTT DO Via [facility] ER FS MIGRAINE, NAUSEA, SENSI TIVE TO LIGHT AND SMELLS
--- NOTE | 2019-11-29 01:43 | ED Headache ---
General Chief Complaint: Head/Cervical Problems Stated Complaint: HEADACHE Nursing Triage Note: Pt complaining of a migraine that started yesterday morning Nursing Sepsis Screen: No Definite Risk Source: patient Exam Limitations: no limitations History of Present Illness Date Seen by Provider: Nov 29, 2019 Time Seen by Provider: 01:35 Initial Comments Presents w a headache for the past few days, Hx of frequent migraines. + associated Nausea and vomiting. + photophobia. Left sided headache and neck pain. Typical pattern and severity. Also mentions her potassium was recently low and that she is taking K supplement, but is worried that it's still low because she is still vomiting. Allergies and Home Medications Allergies Coded Allergies: Sulfa (Sulfonamide Antibiotics) (Verified Allergy, Mild, Itching, 03/14/19) cefuroxime (Verified Allergy, Unknown, 08/21/18) haloperidol (Verified Allergy, Unknown, 10/31/18) magnesium (Verified Allergy, Unknown, 08/21/18) prochlorperazine (Verified Allergy, Unknown, rash, 08/21/18) topiramate (Verified Allergy, Unknown, 08/21/18) tramadol (Verified Allergy, Unknown, 10/31/18) Uncoded Allergies: DHE (Allergy, Unknown, 10/31/18) Home Medications Butalbital/Aspirin/Caffeine 1 Each Capsule, 1 EACH PO TID PRN for Headache Prescribed by: EMLANIE CLAYTON on 09/02/19 185 Cyclobenzaprine HCl 10 Mg Tablet, 10 MG PO Q8H PRN for SPASMS Prescribed by: JAXSON ANDERSON on 10/31/18 1810 Patient Home Medication List Home Medication List Reviewed: Yes Review of Systems Review of Systems Constitutional: see HPI; No fever; malaise; No weakness Eyes: Denies Pain; Photophobia Respiratory: No cough, No short of breath Cardiovascular: No chest pain, No palpitations Gastrointestinal: No constipation; nausea, vomiting Musculoskeletal: see HPI, neck pain (left sided) Psychiatric/Neurological: Headache; Denies Numbness, Denies Paresthesia Past Dsfvswg-Npcnkk-Iwcofy Hx Past Med/Social Hx: Reviewed Nursing Past Med/Soc Hx Patient Social History Alcohol Use: Denies Use Recreational Drug Use: No Smoking Status: Never a Smoker 2nd Hand Smoke Exposure: No Recent Foreign Travel: No Contact w/Someone Who Travel: No Recent Infectious Disease Expo: No Recent Hopitalizations: No Physical Abuse: No Sexual Abuse: No Seasonal Allergies Seasonal Allergies: No Past Medical History Surgeries: Yes 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 Respiratory: No Cardiac: No Neurological: Yes Headaches /Migraines [employer] History: 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 Genitourinary: No Gastrointestinal: No Musculoskeletal: No Endocrine: No HEENT: No Cancer: No Psychosocial: Yes Anxiety Integumentary: No Blood Disorders: No Adverse Reaction/Blood Tranf: No Physical Exam Vital Signs Vital Signs - First Documented 11/29/19 01:24 Temp 36.6 Pulse 98 Resp 16 B/P (MAP) 119/78 (92) Pulse Ox 99 O2 Delivery Room Air Capillary Refill : Less Than 3 Seconds Height, Weight, BMI Height: 5'7.00" Weight: 155lbs. oz. 70.727276wc; 25.00 BMI Method:Stated General Appearance: WD/WN, no apparent distress HEENT: normal ENT inspection Neck: non-tender, supple Psychiatric: alert, oriented x 3 Crainal Nerves: normal hearing, normal speech, PERRL Motor/Sensory: no motor deficit, no sensory deficit, no pronator drift Skin: normal color, warm/dry Progress/Results/Core Measures Results/Orders Lab Results Laboratory Tests Test 11/29/19 01:45 Range/Units Sodium Level 140 135-145 MMOL/L Potassium Level 4.2 3.6-5.0 MMOL/L Chloride Level 102 98-107 MMOL/L Carbon Dioxide Level 20 L 21-32 MMOL/L Anion Gap 18 H 5-14 MMOL/L Blood Urea Nitrogen 9 7-18 MG/DL Creatinine 0.82 0.60-1.30 MG/DL Estimat Glomerular Filtration Rate > 60 BUN/Creatinine Ratio 11 Glucose Level 137 H 70-105 MG/DL Calcium Level 9.6 8.5-10.1 MG/DL My Orders Orders - ROVENSTINE,HERON L DO Metoclopramide Injection (Reglan Injecti (11/29/19 01:45) Ketorolac Injection (Toradol Injection) (11/29/19 01:45) Diphenhydramine Injection (Benadryl Inje (11/29/19 01:45) Basic Metabolic Panel (11/29/19 01:45) Ns Iv 1000 Ml (Sodium Chloride 0.9%) (11/29/19 02:00) Medications Given in ED Current Medications Medications Dose Ordered Sig/Shell Route Start Time Stop Time Status Last Admin Dose Admin Diphenhydramine HCl 25 mg ONCE ONCE IVP 11/29/19 01:45 11/29/19 01:46 DC 11/29/19 01:57 25 MG Ketorolac Tromethamine 30 mg ONCE ONCE IVP 11/29/19 01:45 11/29/19 01:46 DC 11/29/19 01:57 30 MG Vital Signs/I&O 11/29/19 01:24 Temp 36.6 Pulse 98 Resp 16 B/P (MAP) 119/78 (92) Pulse Ox 99 O2 Delivery Room Air Blood Pressure Mean: 92 Progress Progress Note : Time: 02:17 Progress Note headache improving. Normal K level. Pt refused to take Reglan. I let her know that was the reason we started an IV and was the medication that was indicated for and would best help alleviate her migraine headache! She said it doesn't work for her. Departure Impression Primary Impression: Migraine Qualified Codes: G43.909 - Migraine, unspecified, not intractable, without status migrainosus Disposition: 01 HOME, SELF-CARE Condition: Improved Departure-Patient Inst. Decision time for Depature: 02:16 Referrals: WENCESLAO PARIS MD (PCP/Family) Primary Care Physician Patient Instructions: Migraine Headache (DC) HERON PERLA DO Nov 29, 2019 01:43
[2019-11-29] MEDS ORDERED: KETOROLAC 30 MG/ML VIAL IVP ONE (01:45)
[2019-11-29] MEDS ORDERED: diphenhydrAMINE 50 MG/ML INJ (BENADRYL) IVP ONE (01:45)
[2019-11-29] MEDS ORDERED: METOCLOPRAMIDE INJ 10 MG/2 ML (REGLAN) IVP ONE (01:45)
[2019-11-29] MEDS ORDERED: NS IV 1000 ML 1,000 ML IV SCH (02:00)
[2019-11-29 02:09] LABS: BUN/CREATININE RATIO 11; CALCIUM 9.6 MG/DL (8.5-10.1); CARBON DIOXIDE 20 MMOL/L (21-32); CHLORIDE 102 MMOL/L (98-107); CREATININE SERUM 0.82 MG/DL (0.60-1.30); GFR ESTIMATED > 60; GLUCOSE 137 MG/DL (70-105); POTASSIUM 4.2 MMOL/L (3.6-5.0); SODIUM 140 MMOL/L (135-145)
[2019-11-29 02:18] VITALS: BP 119/78
[2019-11-29] MEDS ORDERED: PROM50SU11 RC (15:55)
== END 2019-11-29 03:03 | disposition home or self-care (01) ==
LOC: EDUNIT# 01:18 → ER FS 01:20
DX: G43.909 Migraine, unspecified, not intractable, without status migrainosus (principal); Z88.2 Allergy status to sulfonamides; Z88.1 Allergy status to other antibiotic agents; Z88.5 Allergy status to narcotic agent; Z88.8 Allergy status to other drugs, medicaments and biological substances; Z79.82 Long term (current) use of aspirin
CPT/HCPCS: 36415; 80048; 99282

== ENCOUNTER 2019-11-29 15:00 | Emergency (ER) | payer MEDICARE ==
[~2019-11-29] VITALS: Ht 170 cm; Wt 74.0 kg
--- OUTSIDE RECORDS SUMMARY | 2019-11-29 15:11 | XMS REPORT | Continuity of Care Document ---
Author Organization Unknown Address Unknown Phone Unavailable Allergies Active Description Code Type Severity Reaction Onset Reported/Identified Relationship to Patient Clinical Status Yes Sulfa (Sulfonamides) 491 Unknown N/A 06/24/2016 Yes Ceftin 3716 Unknown N/A 03/24/2018 Yes Compazine 3622 Unknown N/A 03/24/2018 Yes Magnesium 784 Unknown N/A 03/24/2018 Yes Topamax 52195 Unknown N/A 03/24/2018 Yes SULFA SULFA Mild itchy 08/21/2018 Yes cefuroxime [id number] Drug Allerg y Unknown N/A 08/21/2018 Yes magnesium [id number] Drug Allergy Unknown N/A 08/21/2018 Yes No Known Drug Allergies [id number] Drug Allergy Unknown N/A 08/21/2018 Yes prochlorperazine [id number] Drug Allergy Unknown rash 08/21/2018 Yes topiramate [id number] Drug Allerg y Unknown N/A 08/21/2018 Yes DHE DHE Unknown N/A 10/31/2018 Yes haloperidol [id number] Drug Aller gy Unknown N/A 10/31/2018 Yes tramadol [id number] Drug Allergy Unknown N/A 10/31/2018 Yes Sulfa (Sulfonamide Antibiotics) V36160 0491 Drug Allergy Mild Itching 019 Medications [...] AURA, NOT INTRACTABLE, WITHOUT STATUS [facility]RAIN[facility]US [facility] G[facility].809 OTHER MIGRAINE, NOT INTRACTABLE, WITHOUT STATUS MIGRAI NOSUS 07/18/[address] [facility] A R51 HEADACHE 08/22/2018 [...] STATUS TO OTHER ANTIBIOTIC AGENT 05/23/2019 VAISHALI ARAGNO CANDI B Ot Z88. 2 ALLERGY STATUS [...] 2 ALLERGY STATUS TO SULFONAMIDES STATUS 06/25/2019 JOSEI RESENDIZ NEMO A Ot Z88. 5 ALLERGY [...] DO, MELANIE L Ot R51 HEADACHE 08/11/2019 [place] DO, MELANIE L Ot Z86.69 PERSONAL HISTORY [...] .2 ALLERGY STATUS TO SULFONAMIDES STATUS 08/13/2019 [place] DO, MELANIE L Ot Z88 .5 ALLERGY STATUS TO NARCOTIC AGENT STATUS 08/13/2019 [place] DO, MELANIE Mead Ot Z88 .8 ALLERGY STATUS TO OTH DRUG/MEDS/BIOL SUB 08/13/2019 [place] DO, MELANIE Mead Ot Z90.710 ACQUIRED ABSENCE [...] CHRONIC MIGRAINE W/O AURA, NOT INTRACTAB 08/25/2019 [place] DO, MARY BETH Carrillo Ot R51 HEADACHE 08/25/2019 [place] DO, MARY BETH Carrillo Ot Z88.1 ALLERGY STATUS TO OTHER ANTIBIOTIC AGENT 08/25/2019 [place] DO, MARY BETH Carrillo Ot Z88.2 ALLERGY STATUS TO SULFONAMIDES STATUS 08/25/2019 [facility], MARY BETH Carrillo Ot Z88.5 ALLERGY STATUS TO NARCOTIC AGENT STATUS 08/25/2019 [place] DO, MARY BETH Carrillo Ot Z88.8 ALLERGY [...] CHRONIC MIGRAINE W/O AURA, NOT INTRACTAB 08/27/2019 [place] DO, MARY BETH Carrillo Ot R51 HEADACHE 08/27/2019 [place] DO, MARY BETH Carrillo Ot Z88.1 ALLERGY STATUS TO OTHER ANTIBIOTIC AGENT 08/27/2019 [place] DO, MARY BETH Carrillo Ot Z88.2 ALLERGY STATUS TO SULFONAMIDES STATUS 08/27/2019 [place] DO, MARY BETH Carrillo Ot Z88.5 ALLERGY STATUS TO NARCOTIC AGENT STATUS 08/27/2019 [place] DO, MARY BETH Carrillo Ot Z88.8 ALLERGY STATUS TO OTH DRUG/MEDS/BIOL SUB 09/01/2019 [facility]UID[place]ICA CRUZ DO Ot G43.909 MIGRAINE, UNSP, NOT INTRACTABLE, WITHOUT 09/01/2019 VERONICA LORA DO Ot R51 HEADACHE 09/01/2019 [place] , VERONICA St Ot Z88 .1 ALLERGY STATUS TO OTHER ANTIBIOTIC AGENT 09/01/2019 [place] VERONICA ARAGON Ot Z88 .2 ALLERGY STATUS TO SULFONAMIDES STATUS 09/01/2019 [place] VERONICA ARAGON Ot Z88 .5 ALLERGY STATUS TO NARCOTIC AGENT STATUS 09/01/2019 [place] , VERONICA St Ot Z88 .8 ALLERGY [...] ALLERGY STATUS TO OTH DRUG/MEDS/BIOL SUB 10/13/2019 [facility], ULISSES De Oliveira Ot G43.909 MIGRAINE, UNSP, NOT INTRACTABLE, WITHOUT 10/13/2019 [place] DO, ULISSES H Ot R5 1 HEADACHE 10/13/2019 [facility], ULISSES H Ot Z88.1 ALLERGY STATUS TO OTHER ANTIBIOTIC AGENT 10/13/2019 [facility] DO, ULISSES H Ot Z88.2 ALLERGY STATUS TO SULFONAMIDES STATUS 10/13/2019 [facility] DO, ULISSES H Ot Z88.5 ALLERGY STATUS TO NARCOTIC AGENT STATUS 10/13/2019 [facility] DO, ULISSES H Ot Z88.8 ALLERGY STATUS TO OTH DRUG/MEDS/BIOL SUB 10/19/2019 [facility], ULISSES De Oliveira Ot G43.909 MIGRAINE, UNSP, NOT INTRACTABLE, WITHOUT 10/19/2019 [facility], ULISSES H Ot R5 1 HEADACHE 10/19/2019 [facility], ULISSES H Ot Z88.1 ALLERGY STATUS TO OTHER ANTIBIOTIC AGENT 10/19/2019 [facility], ULISSES H Ot Z88.2 ALLERGY STATUS TO SULFONAMIDES STATUS 10/19/2019 [facility], ULISSES H Ot Z88.5 ALLERGY STATUS TO NARCOTIC AGENT STATUS 10/19/2019 [facility], ULISSES H Ot Z88.8 ALLERGY STATUS TO [...] Status Pt. Type Provider Facility Loc./Unit Complaint [id number] 11/25/2019 14:00:00 11/25/2019 23:59: 59 CLS Outpatient WENCESLAO PARIS [facility] [id number] 04/16/2019 07:30:00 Document Registration [id number] 01/29/2019 18:20:00 Document Registration [id number] 12/12/2018 14:15:00 Document Registration [id number] 11/07/2018 17:20:00 Document Registration [id number] 10/25/2018 16:10:00 Document Registration [id number] 10/12/2018 16:20:00 Document Registration [id number] 06/23/2018 04:07:00 ACT Unknown TRUNG WIGGINS [facility] NSER HEADACHE [id number] 06/22/2018 22:07:00 ACT Unknown [facility] [id number] 03/24/2018 [facility]:16[facility]00 [facility] [id number] 01/09/2017 18:47:00 ACT Unknown GASTELUMREDD [facility] NSER HEADACHE [id number] 01/07/2017 21:26:00 ACT [facility] [id number] 06/24/2016 20:12:00 ACT Unknown LEIDA AKHTAR [facility] NSER HEADACHE [id number] 06/26/2015 20:27:00 ACT Unknown JC LLANES R [id number] 11/08/2019 14:24:00 15:03:00 DIS Emergency MELANIE CLAYTON MD [facility] ER FS HEADACHE [id number] 10/10/2019 05:42:00 06:38:00 DIS Emergency ULISSES WHITE DO [facility] ER FS MIGRAINE [id number] 09/24/2019 18:49:00 19:29:00 DIS Emergency CANDI TOM DO [facility] ER FS MIGRAINE,VOMITING [id number] 09/02/2019 18:34:00 19:21:00 DIS Emergency MELANIE CLAYTON MD [facility] ER FS MIGRAINE,NAUSEA,VOMITIN G [id number] 08/27/2019 01:02:00 01:24:00 DIS Emergency VERONICA LORA DO [facility] ER FS MIGRAINE [id number] 08/25/2019 03:50:00 05:08:00 DIS Emergency MARY BETH ALEMAN DO B [facility] ER FS HEADACHE [id number] 08/12/2019 03:28:00 03:53:00 DIS Outpatient SUSANA LOPEZ MD [facility] ER FS MIGRAINE [id number] 08/10/2019 23:52:00 00:24:00 DIS Emergency MELANIE BERNABE DO [facility] ER FS HEADACHE [id number] 08/03/2019 19:30:00 20:55:00 DIS Emergency SUSANA LOPEZ MD [facility] ER FS HEADACHE [id number] 06/25/2019 00:00:00 00:47:00 DIS Emergency JOSIE RESENDIZ, NEMO Gottlieb [facility] ER FS MIGRAINE [id number] 06/24/2019 18:43:00 19:38:00 DIS Emergency NEMO GALINDO MD [facility] ER FS MIGRAINE, N/V [id number] 06/15/2019 00:15:00 00:48:00 DIS Emergency HENOK BELTRAN MD [facility] ER FS HEADACHE/NAUSEA/VOMITTI NG [id number] 05/30/2019 17:25:00 18:36:00 DIS Emergency NEMO GALINDO MD [facility] ER FS MIGRAINE [id number] 05/27/2019 18:38:00 19:28:00 DIS Emergency HENOK BELTRAN MD [facility] ER FS MIGRAINE SYMPTOMS [id number] 05/20/2019 18:38:00 19:20:00 DIS Emergency CANDI TOM DO [facility] ER FS HEADACHE [id number] 05/16/2019 18:57:00 19:30:00 DIS Emergency ROVENSTHERON SILVERMAN DO [facility] ER FS MIGRAINE [id number] 05/04/2019 22:14:00 23:07:00 DIS Emergency SUSANA LOPEZ MD [facility] ER FS MIGRAINE [id number] 04/21/2019 01:30:00 01:54:00 DIS Emergency JOSIE RESENDIZ, NEMO Gottlieb [facility] ER FS HEADACHE,COUGH [id number] 04/12/2019 03:14:00 03:52:00 DIS Emergency SUSANA LOPEZ MD Via [facility] FS MIGRAINE SYMPTOMS [id number] 04/08/2019 00:35:00 01:59:00 DIS Emergency JOSIE RESENDIZ, NEMO Gottlieb [facility] ER FS MIGRAINE [id number] 03/19/2019 01:52:00 03:48:00 DIS Outpatient SUSANA LOPEZ MD [facility] ER FS SEVERE MIGRAINE [id number] 03/14/2019 16:52:00 17:38:00 DIS Emergency ROVENSTHERON SILVERMAN DO [facility] ER FS HEADACHE [id number] 01/30/2019 11:34:00 13:44:00 DIS Emergency SUSANA LOPEZ MD [facility] ER FS HEADACHE; VOMITING [id number] 01/01/2019 10:21:00 11:30:00 DIS Emergency TRISTEN LANDRY DO [facility] ER FS HEADACHE [id number] 12/23/2018 18:47:00 20:51:00 DIS Emergency VERONICA LORA DO [facility] ER FS MIGRAINE [id number] 2018 15:36:00 16:30:00 DIS Emergency KATIA LIRIANO DO [facility] ER FS MIGRAINE;NAUSEA;VOMITIN G [id number] 10/31/2018 16:57:00 18:30:00 DIS Emergency JUSTIN RESENDIZ, JAXSON Mejia [facility] ER FS HEADACHE [id number] 10/24/2018 15:25:00 23:59:59 CLS Outpatient RAINA RESENDIZ, WENCESLAO Medina [facility] RAD FS M54.41 [id number] 08/22/2018 09:55:00 12:18:00 DIS Emergency FARHAT RESENDIZ, SABINA gottlieb [facility] ER FS HEADACHE [id number] 08/21/2018 21:49:00 00:46:00 DIS Emergency JOEL ELLIOTT DO [facility] ER FS MIGRAINE, NAUSEA, SENSI TIVE TO LIGHT AND SMELLS
[2019-11-29] MEDS: METOCLOPRAMIDE INJ 10 MG/2 ML (REGLAN) IM ONE (15:37)
[2019-11-29] MEDS ORDERED: diphenhydrAMINE 50 MG/ML INJ (BENADRYL) IM ONE (15:45)
[2019-11-29] MEDS ORDERED: PROMETHAZINE INJ 25 MG/ML (PHENERGAN) AMP IM ONE (15:45)
[2019-11-29] MEDS ORDERED: KETOROLAC 60 MG/2 ML VIAL IM ONE (15:45)
--- NOTE | 2019-11-29 15:54 | ED Headache ---
General Chief Complaint: Head/Cervical Problems Stated Complaint: HEADACHE;VOMITING Nursing Triage Note: Pt here for 2nd visit to day for "migraine". Pt states migraine started 11/28/19. Earlier in ER rec'd 3/4 of IV fluids, Toradol 30 and Benadryl 25. Pt states they were going to use Reglan but "it never works". Nursing Sepsis Screen: No Definite Risk Source: patient History of Present Illness Date Seen by Provider: Nov 29, 2019 Time Seen by Provider: 15:20 Initial Comments Patient is a 38-year-old female with chronic migraines who presents with persistent ongoing headache for the past 2-3 days. Patient was evaluated in the emergency department earlier this morning for the same. Reports typical left- sided retro-orbital migraine with nausea and light sensitivity. Patient has taken home medications with little relief persistent nausea with inability tolerate oral medications. Patient denies change of pattern severity location from prior migraines. No focal neurologic deficits recent illnesses. No other acute symptoms or complaints. Timing/Duration: 4-6 hours Severity/Quality: moderate Location: other Prior Headaches/Recent Trauma: no recent headache/trauma Associated Symptoms: denies symptoms Allergies and Home Medications Allergies Coded Allergies: Sulfa (Sulfonamide Antibiotics) (Verified Allergy, Mild, Itching, 03/14/19) cefuroxime (Verified Allergy, Unknown, 08/21/18) haloperidol (Verified Allergy, Unknown, 10/31/18) magnesium (Verified Allergy, Unknown, 08/21/18) prochlorperazine (Verified Allergy, Unknown, rash, 08/21/18) topiramate (Verified Allergy, Unknown, 08/21/18) tramadol (Verified Allergy, Unknown, 10/31/18) Uncoded Allergies: DHE (Allergy, Unknown, 10/31/18) Home Medications Butalbital/Aspirin/Caffeine 1 Each Capsule, 1 EACH PO TID PRN for Headache Prescribed by: MELANIE CLAYTON on 09/02/19 185 Cyclobenzaprine HCl 10 Mg Tablet, 10 MG PO Q8H PRN for SPASMS Prescribed by: JAXSON ANDERSON on 10/31/18 1810 Patient Home Medication List Home Medication List Reviewed: Yes Review of Systems Review of Systems Constitutional: see HPI Eyes: See HPI Ears, Nose, Mouth, Throat: see HPI Respiratory: see HPI Cardiovascular: see HPI Genitourinary: see HPI Musculoskeletal: see HPI Skin: see HPI Psychiatric/Neurological: See HPI All Other Systems Reviewed Negative Unless Noted: Yes Past Swvmzxl-Sjwrhk-Xapqvc Hx Past Med/Social Hx: Reviewed Nursing Past Med/Soc Hx Patient Social History Alcohol Use: Denies Use Recreational Drug Use: No Smoking Status: Never a Smoker 2nd Hand Smoke Exposure: No Recent Foreign Travel: No Contact w/Someone Who Travel: No Recent Infectious Disease Expo: No Recent Hopitalizations: No Physical Abuse: No Sexual Abuse: No Mistreated: No Fear: No Seasonal Allergies Seasonal Allergies: No Past Medical History Surgeries: Yes 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 Respiratory: No Cardiac: No Neurological: Yes 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 oz. 70.428618pv; 25.00 BMI Method:Stated General Appearance: WD/WN, no apparent distress HEENT: PERRL/EOMI Neck: non-tender, supple Cardiovascular: normal peripheral pulses, regular rate, rhythm Respiratory: lungs clear Gastrointestinal: soft Psychiatric: alert, oriented x 3 Crainal Nerves: normal hearing, normal speech, PERRL Motor/Sensory: no motor deficit, no sensory deficit Skin: normal color Progress/Results/Core Measures Results/Orders My Orders Orders - TRISTEN LANDRY DO Ketorolac Injection (Toradol Injection) (11/29/19 15:45) Diphenhydramine Injection (Benadryl Inje (11/29/19 15:45) Metoclopramide Injection (Reglan Injecti (11/29/19 15:45) Promethazine Injection (Phenergan Injec (11/29/19 15:45) Medications Given in ED Current Medications Medications Dose Ordered Sig/Shell Route Start Time Stop Time Status Last Admin Dose Admin Diphenhydramine HCl 50 mg ONCE ONCE IM 11/29/19 15:45 6/6/20 15:46 11/29/19 15:37 50 MG Ketorolac Tromethamine 60 mg ONCE ONCE IM 11/29/19 15:45 11/29/19 15:46 11/29/19 15:37 60 MG Metoclopramide HCl 10 mg ONCE ONCE IM 11/29/19 15:45 11/29/19 15:46 11/29/19 15:37 10 MG Vital Signs/I&O 11/29/19 11/29/19 15:07 15:37 Temp 36.8 36.8 Pulse 93 Resp 20 B/P (MAP) 118/64 (82) Pulse Ox 99 O2 Delivery Room Air Blood Pressure Mean: 82 Departure Communication (Admissions) Typical Migraine headache. IM injections given due to poor IV access. Symptomatic relief. In the ED. Will defer further treatment and management PCP and neurologist. Impression Primary Impression: Migraine Disposition: HOME, SELF-CARE Condition: Stable Departure-Patient Inst. Referrals: WENCESLAO PARIS MD (PCP) Primary Care Physician Patient Instructions: Migraine Headache (DC) Add. Discharge Instructions: You were evaluated in the emergency department for migraine headache. Please take Phenergan suppositories and Zofran ODT continue other home medications as directed. Follow-up with your PCP and/or neurologist for further management All discharge instructions reviewed with patient and/or family. Voiced understanding. Scripts Promethazine HCl (Promethazine HCl) 50 Mg Supp.rect 50 MG RC Q8H, #12 SUPP.RECT Prov: TRISTEN LANDRY DO 11/29/19 TRISTEN LANDRY DO Nov 29, 2019 15:53
[2019-11-29] MEDS ORDERED: PROM50SU11 RC (15:55)
[2019-11-29 16:00] VITALS: BP 118/64
== END 2019-11-29 16:00 | disposition home or self-care (01) ==
LOC: EDUNIT# 15:00 → ER FS 15:01
DX: G43.909 Migraine, unspecified, not intractable, without status migrainosus (principal); Z88.2 Allergy status to sulfonamides; Z88.1 Allergy status to other antibiotic agents; Z88.5 Allergy status to narcotic agent; Z88.8 Allergy status to other drugs, medicaments and biological substances; Z79.82 Long term (current) use of aspirin
CPT/HCPCS: 99284

== ENCOUNTER 2019-12-12 05:41 | Emergency (ER) | payer MEDICARE ==
[~2019-12-12] VITALS: Ht 170 cm; Wt 62.0 kg
[~2019-12-12 05:41] MED LIST changes: +PROM50SU11 RC
--- OUTSIDE RECORDS SUMMARY | 2019-12-12 05:49 | XMS REPORT | Continuity of Care Document ---
Author Organization Unknown Address Unknown Phone Unavailable Allergies Active Description Code Type Severity Reaction Onset Reported/Identified Relationship to Patient Clinical Status Yes Sulfa (Sulfonamides) 491 Unknown N/A 06/24/2016 Yes Ceftin 3716 Unknown N/A 03/24/2018 Yes Compazine 3622 Unknown N/A 03/24/2018 Yes Magnesium 784 Unknown N/A 03/24/2018 Yes Topamax 30402 Unknown N/A 03/24/2018 Yes SULFA SULFA Mild itchy 08/21/2018 Yes cefuroxime [id number] Drug Allerg y Unknown N/A 08/21/2018 Yes magnesium [id number] Drug Allergy Unknown N/A 08/21/2018 Yes No Known Drug Allergies [id number] Drug Allergy Unknown N/A 08/21/2018 Yes prochlorperazine [id number] Drug Allergy Unknown rash 08/21/2018 Yes topiramate [id number] Drug Allerg y Unknown N/A 08/21/2018 Yes DHE DHE Unknown N/A 10/31/2018 Yes haloperidol [id number] Drug Aller gy Unknown N/A 10/31/2018 Yes tramadol [id number] Drug Allergy Unknown N/A 10/31/2018 Yes Sulfa (Sulfonamide Antibiotics) [id number] Drug Allergy Mild Itching 019 Medications [...] AURA, NOT INTRACTABLE, WITHOUT STATUS MIGRAINOSUS 07/18/2018 [facility] G[facility].809 OTHER MIGRAINE, NOT INTRACTABLE, WITHOUT STATUS MIGRAI NOSUS 07/18/2018 [facility] A R51 HEADACHE 08/22/2018 EARL [...] MD Ot F41.9 ANXIETY DISORDER, UNSPECIFIED 08/23/2018 SABNIA DOUGHERTY MD Ot G43.909 MIGRAINE, UNSP, NOT [...] MIGRAINE, UNSP, NOT INTRACTABLE, WITHOUT 12/23/2018 VERONICA LOAR DO Ot Z88 .1 ALLERGY STATUS TO [...] STATUS TO NARCOTIC AGENT STATUS 12/24/2018 KATIA LIRAINO DO Ot Z88.8 ALLERGY STATUS TO OTH [...] STATUS TO NARCOTIC AGENT STATUS 05/20/2019 CANDI TMO DO B Ot Z88. 8 ALLERGY STATUS [...] DO, MELANIE L Ot R51 HEADACHE 08/11/2019 [place] DO, MELANIE L Ot Z86.69 PERSONAL HISTORY [...] .2 ALLERGY STATUS TO SULFONAMIDES STATUS 08/13/2019 [place] DO, MELANIE L Ot Z88 .5 ALLERGY STATUS TO NARCOTIC AGENT STATUS 08/13/2019 [place] DO, MELANIE Mead Ot Z88 .8 ALLERGY STATUS TO OTH DRUG/MEDS/BIOL SUB 08/13/2019 [place] DO, MELANIE Mead Ot Z90.710 ACQUIRED ABSENCE [...] ABSENCE OF BOTH CERVIX AND UTER 08/25/2019 [facility], MARY BETH Carrillo Ot G43.7 09 CHRONIC MIGRAINE W/O AURA, NOT INTRACTAB 08/25/2019 [place] DO, MARY BETH Carrillo Ot R51 HEADACHE 08/25/2019 [place] DO, MARY BETH Carrillo Ot Z88.1 ALLERGY STATUS TO OTHER ANTIBIOTIC AGENT 08/25/2019 [place] DO, MARY BETH Carrillo Ot Z88.2 ALLERGY STATUS TO SULFONAMIDES STATUS 08/25/2019 [facility], MARY BETH Carrillo Ot Z88.5 ALLERGY STATUS TO NARCOTIC AGENT STATUS 08/25/2019 [place] DO, MARY BETH Carrillo Ot Z88.8 ALLERGY [...] ALLERGY STATUS TO OTH DRUG/MEDS/BIOL SUB 08/27/2019 [facility], MARY BETH Carrillo Ot G43.7 09 CHRONIC MIGRAINE W/O AURA, NOT INTRACTAB 08/27/2019 [place] DO, MARY BETH Carrillo Ot R51 HEADACHE 08/27/2019 [place] DO, MARY BETH Carrillo Ot Z88.1 ALLERGY STATUS TO OTHER ANTIBIOTIC AGENT 08/27/2019 [place] DO, MARY BETH Carrillo Ot Z88.2 ALLERGY STATUS TO SULFONAMIDES STATUS 08/27/2019 [place] DO, MARY BETH Carrillo Ot Z88.5 ALLERGY STATUS TO NARCOTIC AGENT STATUS 08/27/2019 [place] DO, MARY BETH Carrillo Ot Z88.8 ALLERGY STATUS TO OTH DRUG/MEDS/BIOL SUB 09/01/2019 GUID[place]ONICA CRUZ DO Ot G43.909 MIGRAINE, UNSP, NOT INTRACTABLE, WITHOUT 09/01/2019 VERONICA LORA DO Ot R51 HEADACHE 09/01/2019 [place] , VERONICA St Ot Z88 .1 ALLERGY STATUS TO OTHER ANTIBIOTIC AGENT 09/01/2019 [place] VERONICA ARAGON Ot Z88 .2 ALLERGY STATUS TO SULFONAMIDES STATUS 09/01/2019 [place] VERONICA ARAGON Ot Z88 .5 ALLERGY STATUS TO NARCOTIC AGENT STATUS 09/01/2019 [place] , VERONICA St Ot Z88 .8 ALLERGY STATUS TO OTH DRUG/MEDS/BIOL SUB 09/02/2019 MELANIE CLAYTON MD Ot G43.909 MIGRAINE, UNSP, NOT INTRACTABLE, WITHOUT 09/02/2019 [facility] RESENDIZ, MELANIE Nielson Ot R11.2 NAUSEA WITH VOMITING, UNSPECIFIED 09/02/2019 MELANIE CLAYTON MD Ot Z88.1 ALLERGY STATUS TO OTHER ANTIBIOTIC AGENT 09/02/2019 MELANIE CLAYTON MD Ot Z88.2 ALLERGY STATUS TO SULFONAMIDES STATUS 09/02/2019 MELANIE CALYTON MD Ot Z88.5 ALLERGY STATUS TO NARCOTIC [...] STATUS TO OTH DRUG/MEDS/BIOL SUB 10/02/2019 CANDI TMO DO Ot F41. 9 ANXIETY DISORDER, UNSPECIFIED [...] ALLERGY STATUS TO OTH DRUG/MEDS/BIOL SUB 10/13/2019 [place] DO, ULISSES De Oliveira Ot G43.909 MIGRAINE, UNSP, NOT INTRACTABLE, WITHOUT 10/13/2019 [facility], ULISSES Yennifer Ot R5 1 HEADACHE 10/13/2019 [facility], ULISSES Yennifer Ot Z88.1 ALLERGY STATUS TO OTHER ANTIBIOTIC AGENT 10/13/2019 [facility], ULISSES H Ot Z88.2 ALLERGY STATUS TO SULFONAMIDES STATUS 10/13/2019 [facility], ULISSES H Ot Z88.5 ALLERGY STATUS TO NARCOTIC AGENT STATUS 10/13/2019 [facility], ULISSES H Ot Z88.8 ALLERGY STATUS TO OTH DRUG/MEDS/BIOL SUB 10/19/2019 [facility], ULISSES De Oliveira Ot G43.909 MIGRAINE, UNSP, NOT INTRACTABLE, WITHOUT 10/19/2019 [facility], ULISSES De Oliveira Ot R5 1 HEADACHE 10/19/2019 [facility], ULISSES Yennifer Ot Z88.1 ALLERGY STATUS TO OTHER ANTIBIOTIC AGENT 10/19/2019 [facility], ULISSES De Oliveira Ot Z88.2 ALLERGY STATUS TO SULFONAMIDES STATUS 10/19/2019 [facility], ULISSES De Oliveira Ot Z88.5 ALLERGY STATUS TO NARCOTIC AGENT STATUS 10/19/2019 [facility], ULISSES H Ot Z88.8 ALLERGY STATUS TO OTH DRUG/MEDS/BIOL SUB 11/08/2019 MELANIE CLAYTON MD Ot R5 1 HEADACHE 11/08/2019 MELANIE CLAYTON MD Ot 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 11/08/2019 MELANIE CLAYTON MD Ot Z86.69 PERSONAL HISTORY OF DIS OF THE NERVOUS S 11/08/2019 MELANIE CLAYTON MD Ot Z88.1 ALLERGY STATUS TO OTHER ANTIBIOTIC AGENT 11/08/2019 MELANIE CLAYTON MD Ot Z88.2 ALLERGY STATUS TO SULFONAMIDES STATUS 11/08/2019 MELANIE CLAYTON MD Ot Z88.5 ALLERGY STATUS TO NARCOTIC AGENT STATUS 11/08/2019 MELANIE CLAYTON MD Ot Z88.8 ALLERGY STATUS TO OTH DRUG/MEDS/BIOL SUB 11/29/2019 TRISTEN LANDRY DO Ot G43.909 MIGRAINE, UNSP, NOT INTRACTABLE, WITHOUT 11/29/2019 [place] DO, TRISTEN Ot R51 HEADACHE 11/29/2019 [place] DO, TRISTEN Ot Z79.82 SNF (CURRENT) USE OF ASPIRIN 11/29/2019 [place] DO, TRISTEN Ot Z88.1 ALLERGY STATUS TO OTHER ANTIBIOTIC AGENT 11/29/2019 [place] DO, TRISTEN Ot Z88.2 ALLERGY STATUS TO SULFONAMIDES STATUS 11/29/2019 [place] DO, TRISTEN Ot Z88.5 ALLERGY STATUS TO NARCOTIC AGENT STATUS 11/29/2019 [place] DO, TRISTEN Ot Z88.8 ALLERGY STATUS TO OTH DRUG/MEDS/BIOL SUB 12/02/2019 [place] DO, HERON L Ot G43.909 MIGRAINE, UNSP, NOT INTRACTABLE, WITHOUT 12/02/2019 [place] DO, HERON L Ot R51 HEADACHE 12/02/2019 ROV[place] DO, HERON L Ot 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 12/02/2019 [place] DO, HERON L Ot Z88.1 ALLERGY STATUS TO OTHER ANTIBIOTIC AGENT 12/02/2019 R[place] DO, HERON L Ot Z88.2 ALLERGY STATUS TO SULFONAMIDES STATUS 12/02/2019 [place] DO, HERON L Ot Z88.5 ALLERGY STATUS TO NARCOTIC AGENT STATUS 12/02/2019 [place] DO, HERON L Ot Z88.8 ALLERGY STATUS TO OTH DRUG/MEDS/BIOL SUB 12/02/2019 [place] DO, TRISTEN Ot G43.909 MIGRAINE, UNSP, NOT INTRACTABLE, WITHOUT 12/02/2019 [place] DO, TRISTEN Ot R51 HEADACHE 12/02/2019 [place] DO, TRISTEN Ot 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 12/02/2019 [place] DO, TRISTEN Ot Z88.1 ALLERGY STATUS TO OTHER ANTIBIOTIC AGENT 12/02/2019 [place] DO, TRISTEN Ot Z88.2 ALLERGY STATUS TO SULFONAMIDES STATUS 12/02/2019 [place] DO, TRISTEN Ot Z88.5 ALLERGY STATUS TO NARCOTIC AGENT STATUS 12/02/2019 [place] DO, TRISTEN Ot Z88.8 ALLERGY STATUS TO [...] 04/16/19 08:08 CULTURE, THROAT SEE NOTE NRG Whole blood basic metabolic panel - 12/12 01:45 Serum or plasma sodium measurement (moles/volume) 140 mmol/L 135-145 Serum or plasma potassium measurement (moles/volume) 4.2 mmol/L 3.6-5.0 Serum or plasma chloride measurement (moles/volume) 102 mmol/L 98-107 Carbon dioxide 20 mmol/L 21-32 Serum or plasma anion gap determination (moles/volume) 18 mmol/L 5-14 Serum or plasma urea nitrogen measurement (mass/volume ) 9 mg/dL 7-18 Serum or plasma creatinine measurement (mass/volume) 0.82 mg/dL 0.60-1.30 Serum or plasma urea nitrogen/creatinine mass ratio 11 NRG Serum or plasma creatinine measurement w ith calculation of estimated glomerular filtration rate > NRG Serum or plasma glucose measurement (mass/volume) 137 mg/dL 70-105 Serum or plasma calcium measurement (mass/volume) 9.6 mg/dL 8.5-10.1 Encounters ACCT No. Visit Date/Time Discharge Status Pt. Type Provider Facility Loc./Unit Complaint [id number] 12/02/2019 14:00:00 12/02/2019 23:59: 59 [facility] Outpatient WENCESLAO PARIS [facility] [id number] 04/16/2019 07:30:00 Document Registration [id number] 01/29/2019 18:20:00 Document Registration [id number] 12/12/2018 14:15:00 Document Registration [id number] 11/07/2018 17:20:00 Document Registration [id number] 10/25/2018 16:10:00 Document Registration [id number] 10/12/2018 16:20:00 Document Registration [id number] 06/23/2018 04:07:00 ACT Unknown TRUNG WIGGINS [facility] NSER HEADACHE [id number] 06/22/2018 22:07:00 ACT Unknown TRUNG WIGGINS [facility] NSER HEADACHE [id number] 03/24/2018 19:16:00 [facility] [id number] 01/09/2017 18:47:00 ACT Unknown REDD GASTELUM [facility] [id number] 01/07/2017 21:26:00 ACT Unknown Alma Rosa ADEN-CECE [facility] NSER HEADACHE [id number] 06/24/2016 20:12:00 ACT Unknown LEIDA AKHTAR [facility] NSER HEADACHE [id number] 06/26/2015 20:27:00 ACT Unknown JC LLANES [id number] 11/29/2019 15:01:00 16:00:00 DIS Emergency TRISTEN LANDRY DO [facility] ER FS HEADACHE;VOMITING [id number] 11/29/2019 01:20:00 03:03:00 DIS Outpatient HERON PERLA DO [facility] ER FS HEADACHE [id number] 11/08/2019 14:24:00 15:03:00 DIS Emergency MELANIE CLAYTON MD [facility] ER FS HEADACHE [id number] 10/10/2019 05:42:00 06:38:00 DIS Emergency ULISSES WHITE DO [facility] ER FS MIGRAINE [id number] 09/24/2019 18:49:00 19:29:00 DIS Emergency CANDI TOM DO [facility] ER FS MIGRAINE,VOMITING [id number] 09/02/2019 18:34:00 19:21:00 DIS Emergency MELANIE CLAYTON MD [facility] ER FS MIGRAINE,NAUSEA,VOMITIN G [id number] 08/27/2019 01:02:00 01:24:00 DIS Emergency VERONICA LORA DO [facility] ER FS MIGRAINE [id number] 08/25/2019 03:50:00 05:08:00 DIS Emergency MARY BETH ALEMAN DO [facility] ER FS HEADACHE [id number] 08/12/2019 03:28:00 03:53:00 DIS Outpatient JOHN RESENDIZ, SUSANA Ramachandran [facility] ER FS MIGRAINE [id number] 08/10/2019 23:52:00 00:24:00 DIS Emergency MELANIE BERNABE DO [facility] ER FS HEADACHE [id number] 08/03/2019 19:30:00 20:55:00 DIS Emergency USSANA LOPEZ MD [facility] ER FS HEADACHE [id number] 06/25/2019 00:00:00 00:47:00 DIS Emergency JOSIE RESENDIZ, NEMO Gottlieb [facility] ER FS MIGRAINE [id number] 06/24/2019 18:43:00 19:38:00 DIS Emergency JOSIE RESENDIZ, NEMO Gottlieb [facility] ER FS MIGRAINE, N/V [id number] 06/15/2019 00:15:00 00:48:00 DIS Emergency HENOK BELTRAN MD [facility] ER FS HEADACHE/NAUSEA/VOMITTI NG [id number] 05/30/2019 17:25:00 18:36:00 DIS Emergency NEMO GALINDO MD [facility] ER FS MIGRAINE [id number] 05/27/2019 18:38:00 19:28:00 DIS Emergency HENOK BELTRAN MD [facility] ER FS MIGRAINE SYMPTOMS [id number] 05/20/2019 18:38:00 19:20:00 DIS Emergency CANDI TOM DO [facility] ER FS HEADACHE [id number] 05/16/2019 18:57:00 19:30:00 DIS Emergency ELFEGOVENHERON RICE DO [facility] ER FS MIGRAINE [id number] 05/04/2019 22:14:00 23:07:00 DIS Emergency SUSANA LOPEZ MD [facility] ER FS MIGRAINE [id number] 04/21/2019 01:30:00 01:54:00 DIS Emergency JOSIE RESENDIZ, NEOM Gottlieb [facility] ER FS HEADACHE,COUGH [id number] 04/12/2019 03:14:00 03:52:00 DIS Emergency SUSANA LOPEZ MD [facility] ER FS MIGRAINE SYMPTOMS [id number] 04/08/2019 00:35:00 01:59:00 DIS Emergency JOSIE RESENDIZ, NEMO Gottlieb [facility] ER FS MIGRAINE [id number] 03/19/2019 01:52:00 03:48:00 DIS Outpatient SUSANA LOPEZ MD [facility] ER FS SEVERE MIGRAINE [id number] 03/14/2019 16:52:00 17:38:00 DIS Emergency ROVENSTHERON SILVERMAN DO [facility] ER FS HEADACHE [id number] 01/30/2019 11:34:00 13:44:00 DIS Emergency JOHN RESENDIZ, SUSANA Ramachandran [facility] ER FS HEADACHE; VOMITING [id number] 01/01/2019 10:21:00 11:30:00 DIS Emergency TRISTEN LANDRY DO [facility] ER FS HEADACHE [id number] 12/23/2018 18:47:00 20:51:00 DIS Emergency VERONICA LORA DO [facility] ER FS MIGRAINE [id number] 2018 15:36:00 16:30:00 DIS Emergency KATIA LIRIANO DO [facility] ER FS MIGRAINE;NAUSEA;VOMITIN G [id number] 10/31/2018 16:57:00 18:30:00 DIS Emergency JAXSON ANDERSON MD [facility] ER FS HEADACHE [id number] 10/24/2018 15:25:00 23:59:59 CLS Outpatient RAINA RESENDIZ, WENCESLAO Medina [facility] RAD FS M54.41 [id number] 08/22/2018 09:55:00 019 12:18:00 DIS Emergency FARHAT RESENDIZ, SABINA gottlieb [facility] ER FS HEADACHE [id number] 08/21/2018 21:49:00 019 00:46:00 DIS Emergency JOEL ELLIOTT DO [facility] ER FS MIGRAINE, NAUSEA, SENSI TIVE TO LIGHT AND SMELLS
[2019-12-12] MEDS ORDERED: KETOROLAC 60 MG/2 ML VIAL IM ONE (06:15)
[2019-12-12] MEDS ORDERED: PROMETHAZINE INJ 25 MG/ML (PHENERGAN) AMP IM/IV ONE (06:15)
[2019-12-12] MEDS ORDERED: diphenhydrAMINE 50 MG/ML INJ (BENADRYL) IM ONE (06:15)
--- NOTE | 2019-12-12 06:18 | ED Headache ---
General Chief Complaint: Head/Cervical Problems Stated Complaint: MIGRAINE Nursing Triage Note: Pt complaining of a migraine that started yesterday morning Nursing Sepsis Screen: No Definite Risk Source: patient Exam Limitations: no limitations History of Present Illness Date Seen by Provider: Dec 12, 2019 Time Seen by Provider: 06:00 Initial Comments History of chronic migraines. States onset yesterday. Typical pattern and severity of her typical headache. Unrelieved w Imitrex, ibuprofen, ativan and phenergan at home. Has PCP, Silverer and Neurologist (according to pt) participating in management of her chronic headaches. Allergies and Home Medications Allergies Coded Allergies: Sulfa (Sulfonamide Antibiotics) (Verified Allergy, Mild, Itching, 03/14/19) cefuroxime (Verified Allergy, Unknown, 08/21/18) haloperidol (Verified Allergy, Unknown, 10/31/18) magnesium (Verified Allergy, Unknown, 08/21/18) prochlorperazine (Verified Allergy, Unknown, rash, 08/21/18) topiramate (Verified Allergy, Unknown, 08/21/18) tramadol (Verified Allergy, Unknown, 10/31/18) Uncoded Allergies: DHE (Allergy, Unknown, 10/31/18) Home Medications Butalbital/Aspirin/Caffeine 1 Each Capsule, 1 EACH PO TID PRN for Headache Prescribed by: MELANIE CLAYTON on 09/02/19 185 Cyclobenzaprine HCl 10 Mg Tablet, 10 MG PO Q8H PRN for SPASMS Prescribed by: JAXSON ANDERSON on 10/31/18 181 Promethazine HCl 50 Mg Supp.rect, 50 MG RC Q8H Prescribed by: TRISTEN LANDRY on 11/29/19 1555 Patient Home Medication List Home Medication List Reviewed: Yes Review of Systems Review of Systems Constitutional: see HPI; No dizziness, No fever; malaise; No weakness Eyes: Denies Blindness, Denies Blurred Vision, Denies Pain; Photophobia; Denies Vision Changes Ears, Nose, Mouth, Throat: no symptoms reported Respiratory: no symptoms reported Cardiovascular: no symptoms reported Gastrointestinal: No abdominal pain, No loss of appetite, No nausea; vomiting Musculoskeletal: No back pain, No neck pain Skin: no symptoms reported Psychiatric/Neurological: See HPI, Headache; Denies Numbness, Denies Paresthesia, Denies Seizure, Denies Weakness Past Pjvrnkz-Vucaft-Gzclcc Hx Past Med/Social Hx: Reviewed Nursing Past Med/Soc Hx Patient Social History Alcohol Use: Denies Use Recreational Drug Use: No 2nd Hand Smoke Exposure: No Recent Foreign Travel: No Contact w/Someone Who Travel: No Recent Infectious Disease Expo: No Recent Hopitalizations: No Physical Abuse: No Sexual Abuse: No Seasonal Allergies Seasonal Allergies: No Past Medical History Surgeries: Yes 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 Respiratory: No Cardiac: No Neurological: Yes 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 oz. 70.886694ko; 21.00 BMI Method:Stated General Appearance: WD/WN, no apparent distress HEENT: PERRL/EOMI, normal ENT inspection Neck: supple, normal inspection Psychiatric: alert, oriented x 3 Crainal Nerves: normal hearing, normal speech, PERRL Coordination/Gait: normal finger to nose, normal gait Motor/Sensory: no motor deficit, no sensory deficit Skin: normal color, warm/dry Progress/Results/Core Measures Results/Orders My Orders Orders - ROVENSTINE,HERON L DO Diphenhydramine Injection (Benadryl Inje (12/12/19 06:15) Ketorolac Injection (Toradol Injection) (12/12/19 06:15) Promethazine Injection (Phenergan Injec (12/12/19 06:15) Vital Signs/I&O 12/12/19 05:49 Temp 36.6 Pulse 105 Resp 16 B/P (MAP) 149/79 (102) Pulse Ox 97 O2 Delivery Room Air Blood Pressure Mean: 102 Departure Impression Primary Impression: Chronic migraine Disposition: 01 HOME, SELF-CARE Condition: Stable Departure-Patient Inst. Decision time for Depature: 06:17 Referrals: WENCESLAO [place] MD (PCP/Family) Primary Care Physician Patient Instructions: Migraine Headache (DC) Add. Discharge Instructions: Call your Doctor today to arrange for further care of your chronic headaches. All discharge instructions reviewed with patient and/or family. Voiced understanding. HERON PERLA DO Dec 12, 2019 06:18
[2019-12-12 06:22] VITALS: BP 149/79
== END 2019-12-12 06:22 | disposition home or self-care (01) ==
LOC: EDUNIT# 05:41 → ER FS 05:44
DX: G43.709 Chronic migraine without aura, not intractable, without status migrainosus (principal); Z88.2 Allergy status to sulfonamides; Z88.1 Allergy status to other antibiotic agents; Z88.5 Allergy status to narcotic agent; Z88.8 Allergy status to other drugs, medicaments and biological substances
CPT/HCPCS: 99284

== ENCOUNTER 2020-01-11 01:49 | Emergency (ER) | payer MEDICARE ==
[~2020-01-11] VITALS: Ht 170.1 cm; Wt 66.2 kg
[2020-01-11 01:53] VITALS: BP 139/79
--- OUTSIDE RECORDS SUMMARY | 2020-01-11 01:58 | XMS REPORT | Continuity of Care Document ---
Author Organization Unknown Address Unknown Phone Unavailable Allergies Active Description Code Type Severity Reaction Onset Reported/Identified Relationship to Patient Clinical Status Yes Sulfa (Sulfonamides) 491 Unknown N/A 06/24/2016 Yes Ceftin 3716 Unknown N/A 03/24/2018 Yes Compazine 3622 Unknown N/A 03/24/2018 Yes Magnesium 784 Unknown N/A 03/24/2018 Yes Topamax 96471 Unknown N/A 03/24/2018 Yes SULFA SULFA Mild itchy 08/21/2018 Yes cefuroxime [id number] Drug Allerg y Unknown N/A 08/21/2018 Yes magnesium [id number] Drug Allergy Unknown N/A 08/21/2018 Yes No Known Drug Allergies [id number] Drug Allergy Unknown N/A 08/21/2018 Yes prochlorperazine [id number] Drug Allergy Unknown rash 08/21/2018 Yes topiramate [id number] Drug Allerg y Unknown N/A 08/21/2018 Yes DHE DHE Unknown N/A 10/31/2018 Yes haloperidol [id number] Drug Aller gy Unknown N/A 10/31/2018 Yes tramadol [id number] Drug Allergy Unknown N/A 10/31/2018 Yes Sulfa (Sulfonamide Antibiotics) [id number] 0491 Drug Allergy Mild Itching 019 Medications [...] AURA, NOT INTRACTABLE, WITHOUT STATUS MIGRAINOSUS 07/18/2018 [facility] P G43.809 OTHER MIGRAINE, NOT INTRACTABLE, WITHOUT STATUS MIGRAI NOSUS 07/18/2018 [facility] A R51 HEADACHE 08/22/2018 EARL ARAGON [...] STATUS TO NARCOTIC AGENT STATUS 04/08/2019 JOSIE REESNDIZ, NEMO A Ot Z88. 8 ALLERGY STATUS [...] ALLERGY STATUS TO OTH DRUG/MEDS/BIOL SUB 04/24/2019 JSOIE RESENDIZ, NEMO A Ot Z90.710 ACQUIRED ABSENCE [...] STATUS TO OTH DRUG/MEDS/BIOL SUB 05/07/2019 SUSANA OLPEZ MD Ot Z90.7 10 ACQUIRED ABSENCE OF [...] TO OTH DRUG/MEDS/BIOL SUB 05/16/2019 ROVENSTINE DO, HEORN L Ot Z90.710 ACQUIRED ABSENCE OF BOTH [...] A Ot R51 HEADACHE 06/24/2019 JOSIE RESENDIZ, NMEO A Ot Z86. 69 PERSONAL HISTORY OF [...] DO, MELANIE L Ot R51 HEADACHE 08/11/2019 [place] DO, MELANIE L Ot Z86.69 PERSONAL HISTORY [...] .2 ALLERGY STATUS TO SULFONAMIDES STATUS 08/13/2019 [place] DO, MELANIE L Ot Z88 .5 ALLERGY STATUS TO NARCOTIC AGENT STATUS 08/13/2019 [place] DO, MELANIE Mead Ot Z88 .8 ALLERGY STATUS TO OTH DRUG/MEDS/BIOL SUB 08/13/2019 [place] DO, MELANIE Mead Ot Z90.710 ACQUIRED ABSENCE [...] ABSENCE OF BOTH CERVIX AND UTER 08/25/2019 [facility], MARY BETH Carrillo Ot G43.7 09 CHRONIC MIGRAINE W/O AURA, NOT INTRACTAB 08/25/2019 [place] DO, MARY BETH Carrillo Ot R51 HEADACHE 08/25/2019 [place] DO, MARY BETH Carrillo Ot Z88.1 ALLERGY STATUS TO OTHER ANTIBIOTIC AGENT 08/25/2019 [place] DO, MARY BETH Carrillo Ot Z88.2 ALLERGY STATUS TO SULFONAMIDES STATUS 08/25/2019 [facility], MARY BETH Carrillo Ot Z88.5 ALLERGY STATUS TO NARCOTIC AGENT STATUS 08/25/2019 [place] DO, MARY BETH Carrillo Ot Z88.8 ALLERGY [...] ALLERGY STATUS TO OTH DRUG/MEDS/BIOL SUB 08/27/2019 [facility], MARY BETH Carrillo Ot G43.7 09 CHRONIC MIGRAINE W/O AURA, NOT INTRACTAB 08/27/2019 [place] DO, MARY BETH Carrillo Ot R51 HEADACHE 08/27/2019 [place] DO, MARY BETH Carrillo Ot Z88.1 ALLERGY STATUS TO OTHER ANTIBIOTIC AGENT 08/27/2019 [place] DO, MARY BETH Carrillo Ot Z88.2 ALLERGY STATUS TO SULFONAMIDES STATUS 08/27/2019 [place] DO, MARY BETH Carrillo Ot Z88.5 ALLERGY STATUS TO NARCOTIC AGENT STATUS 08/27/2019 [place] DO, MARY BETH Carrillo Ot Z88.8 ALLERGY STATUS TO OTH DRUG/MEDS/BIOL SUB 09/01/2019 GUIDOVERONICA CRUZ DO Ot G43.909 MIGRAINE, UNSP, NOT INTRACTABLE, WITHOUT 09/01/2019 VERONICA LORA DO Ot R51 HEADACHE 09/01/2019 [place] , VERONICA St Ot Z88 .1 ALLERGY STATUS TO OTHER ANTIBIOTIC AGENT 09/01/2019 [place] VERONICA ARAGON Ot Z88 .2 ALLERGY STATUS TO SULFONAMIDES STATUS 09/01/2019 [place] VERONICA ARAGON Ot Z88 .5 ALLERGY STATUS TO NARCOTIC AGENT STATUS 09/01/2019 [place] , VERONICA St Ot Z88 .8 ALLERGY [...] ULISSES H Ot R5 1 HEADACHE 10/13/2019 [facility] DO, ULISSES Yennifer Ot Z88.1 ALLERGY STATUS TO OTHER ANTIBIOTIC AGENT 10/13/2019 [place] DO, ULISSES H Ot Z88.2 ALLERGY STATUS TO SULFONAMIDES STATUS 10/13/2019 [place] DO, ULISSES H Ot Z88.5 ALLERGY STATUS TO NARCOTIC AGENT STATUS 10/13/2019 [place] DO, ULISSES H Ot Z88.8 ALLERGY STATUS TO OTH DRUG/MEDS/BIOL SUB 10/19/2019 [place] DO, ULISSES De Oliveira Ot G43.909 MIGRAINE, UNSP, NOT INTRACTABLE, WITHOUT 10/19/2019 [place] DO, ULISSES Yennifer Ot R5 1 HEADACHE 10/19/2019 [facility], ULISSES Yennifer Ot Z88.1 ALLERGY STATUS TO OTHER ANTIBIOTIC AGENT 10/19/2019 [facility], ULISSES H Ot Z88.2 ALLERGY STATUS TO SULFONAMIDES STATUS 10/19/2019 [facility], ULISSES H Ot Z88.5 ALLERGY STATUS TO NARCOTIC AGENT STATUS 10/19/2019 [facility], ULISSES H Ot Z88.8 ALLERGY STATUS TO OTH DRUG/MEDS/BIOL SUB 11/08/2019 MELANIE CLAYTON MD Ot R5 1 HEADACHE 11/08/2019 MATIL[facility] RESENDIZ, MELANIE Nielson Ot Z79.82 PRIVATE EYE (CURRENT) USE OF ASPIRIN 11/08/2019 MELANIE CLAYTON MD Ot Z86.69 PERSONAL HISTORY OF DIS OF THE NERVOUS S 11/08/2019 MATILDE RESENDIZ, MELANIE Nielson Ot Z88.1 ALLERGY STATUS TO OTHER ANTIBIOTIC AGENT 11/08/2019 MELANIE CLAYTON MD Ot Z88.2 ALLERGY STATUS TO SULFONAMIDES STATUS 11/08/2019 MELANIE CLAYTON MD Ot Z88.5 ALLERGY STATUS TO NARCOTIC AGENT STATUS 11/08/2019 MELANIE CLAYTON MD Ot Z88.8 ALLERGY STATUS TO OTH DRUG/MEDS/BIOL SUB 11/29/2019 ROVENSTINE HERON ARAGON Ot G43.909 MIGRAINE, UNSP, NOT INTRACTABLE, WITHOUT 11/29/2019 [place] DO, HERON L Ot R51 HEADACHE 11/29/2019 [place] DO, HERON L Ot Z79.82 SHELTER (CURRENT) USE OF ASPIRIN 11/29/2019 [place] DO, HERON L Ot Z88.1 ALLERGY STATUS TO OTHER ANTIBIOTIC AGENT 11/29/2019 [place] DO, HEORN L Ot Z88.2 ALLERGY STATUS TO SULFONAMIDES STATUS 11/29/2019 [place] DO, HERON L Ot Z88.5 ALLERGY STATUS TO NARCOTIC AGENT STATUS 11/29/2019 [place] DO, HERON L Ot Z88.8 ALLERGY STATUS TO OTH DRUG/MEDS/BIOL SUB 11/29/2019 [place] DO, TRISTEN Ot G43.909 MIGRAINE, UNSP, NOT INTRACTABLE, WITHOUT 11/29/2019 [place] DO, TRISTEN Ot R51 HEADACHE 11/29/2019 [place] DO, TRISTEN Ot Z79.82 SHELTER (CURRENT) USE OF ASPIRIN 11/29/2019 [place] DO, [...] Ot R51 HEADACHE 12/02/2019 [place] DO, HERON Mead Ot Z79.82 PRIVATE EYE (CURRENT) USE OF ASPIRIN 12/02/2019 [place] DO, HERON L Ot Z88.1 ALLERGY STATUS TO OTHER ANTIBIOTIC AGENT 12/02/2019 [place] DO, HERON L Ot Z88.2 ALLERGY STATUS TO SULFONAMIDES STATUS 12/02/2019 [place] DO, HERON L Ot Z88.5 ALLERGY STATUS TO NARCOTIC AGENT STATUS 12/02/2019 [place] DO, HERON L Ot Z88.8 ALLERGY STATUS TO OTH DRUG/MEDS/BIOL SUB 12/02/2019 [place] DO, TRISTEN Ot G43.909 MIGRAINE, UNSP, NOT INTRACTABLE, WITHOUT 12/02/2019 [place] DO, TRISTEN Ot R51 HEADACHE 12/02/2019 [place] DO, TRISTEN Ot Z79.82 SHELTER (CURRENT) USE OF ASPIRIN 12/02/2019 [place] DO, TRISTEN Ot Z88.1 ALLERGY STATUS TO OTHER ANTIBIOTIC AGENT 12/02/2019 [place] DO, TRISTEN Ot Z88.2 ALLERGY STATUS TO SULFONAMIDES STATUS 12/02/2019 [place] DO, TRISTEN Ot Z88.5 ALLERGY STATUS TO NARCOTIC AGENT STATUS 12/02/2019 [place] DO, TRISTEN Ot Z88.8 ALLERGY STATUS TO OTH DRUG/MEDS/BIOL SUB 12/12/2019 [place] DO, HERON Mead Ot G43.709 CHRONIC MIGRAINE W/O AURA, NOT INTRACTAB 12/12/2019 [place] DO, HERON Mead Ot R51 HEADACHE 12/12/2019 [place] DO, HERON Mead Ot Z88.1 ALLERGY STATUS TO OTHER ANTIBIOTIC AGENT 12/12/2019 [place] DO, HERON Mead Ot Z88.2 ALLERGY STATUS TO SULFONAMIDES STATUS 12/12/2019 [place] DO, HERON L Ot Z88.5 ALLERGY STATUS TO NARCOTIC AGENT STATUS 12/12/2019 [place] DO, HERON L Ot Z88.8 ALLERGY [...] Status Pt. Type Provider Facility Loc./Unit Complaint [id number] 12/02/2019 14:00:00 12/02/2019 23:59: 59 [facility] Outpatient WENCESLAO [facility] [id number] 04/16/2019 07:30:00 Document Registration [id number] 01/29/2019 18:20:00 Document Registration [id number] 12/12/2018 14:15:00 Document Registration [id number] 11/07/2018 17:20:00 Document Registration [id number] 10/25/2018 16:10:00 Document Registration [id number] 10/12/2018 16:20:00 Document Registration [id number] 06/23/2018 04:07:00 ACT Unknown ORLEANSTRUNG [facility] NSER HEADACHE [id number] 06/22/2018 22:07:00 ACT Unknown ROSALIETRUNG [facility] NSER HEADACHE [id number] 03/24/2018 19:16:00 [facility] [id number] 01/09/2017 18:47:00 ACT Unknown REDD GASTELUM [facility] NSER HEADACHE [id number] 01/07/2017 21:26:00 ACT Unknown Alma Rosa ADEN [facility] NSER HEADACHE [id number] 06/24/2016 20:12:00 ACT [facility] HEADACHE [id number] 06/26/2015 20:27:00 ACT Unknown JC LLANES [id number] 12/12/2019 05:44:00 06:22:00 DIS Emergency HERON PERLA DO [facility] ER FS MIGRAINE [id number] 11/29/2019 15:01:00 16:00:00 DIS Emergency LANDRY TRISTEN ARAGON [facility] ER FS HEADACHE;VOMITING [id number] 11/29/2019 01:20:00 03:03:00 DIS Emergency ROVENSTINE HERON ARAGON [facility] ER FS HEADACHE [id number] 11/08/2019 14:24:00 15:03:00 DIS Emergency MATILDE RESENDIZ, MELANIE Nielson [facility] ER FS HEADACHE [id number] 10/10/2019 05:42:00 06:38:00 DIS Emergency CINDY DOULISSES H [facility] ER FS MIGRAINE [id number] 09/24/2019 18:49:00 19:29:00 DIS Emergency CANDI TOM DO [facility] ER FS MIGRAINE,VOMITING [id number] 09/02/2019 18:34:00 19:21:00 DIS Emergency MATILDE RESENDIZ, MELANIE Nielson [facility] ER FS MIGRAINE,NAUSEA,VOMITIN G [id number] 08/27/2019 01:02:00 01:24:00 DIS Emergency VERONICA LORA DO [facility] ER FS MIGRAINE [id number] 08/25/2019 03:50:00 05:08:00 DIS Emergency MARY BETH ALEMAN DO [facility] ER FS HEADACHE [id number] 08/12/2019 03:28:00 03:53:00 DIS Outpatient SUSANA LOPEZ MD [facility] ER FS MIGRAINE [id number] 08/10/2019 23:52:00 00:24:00 DIS Emergency MELANIE BERNABE DO [facility] ER FS HEADACHE [id number] 08/03/2019 19:30:00 20:55:00 DIS Emergency SUSANA LOPEZ MD [facility] ER FS HEADACHE [id number] 06/25/2019 00:00:00 00:47:00 DIS Emergency JOSIE RESENDIZ, NEMO Gottlieb [facility] ER FS MIGRAINE [id number] 06/24/2019 18:43:00 19:38:00 DIS Emergency JOSIE RESENDIZ, NEMO Gottlieb [facility] ER FS MIGRAINE, N/V [id number] 06/15/2019 00:15:00 00:48:00 DIS Emergency DEVIN RESENDIZ, HENOK Mead [facility] ER FS HEADACHE/NAUSEA/VOMITTI NG [id number] 05/30/2019 17:25:00 18:36:00 DIS Emergency JOSIE RESENDIZ, NEMO Gottlieb [facility] FS MIGRAINE [id number] 05/27/2019 18:38:00 19:28:00 DIS Emergency DEVIN RESENDIZ, HENOK Mead [facility] ER FS MIGRAINE SYMPTOMS [id number] 05/20/2019 18:38:00 19:20:00 DIS Emergency CANDI TOM DO B [facility] ER FS HEADACHE [id number] 05/16/2019 18:57:00 19:30:00 DIS Emergency ROVENSTANDRA ARAGON HERON L [facility] ER FS MIGRAINE [id number] 05/04/2019 22:14:00 23:07:00 DIS Emergency SUSANA LOPEZ MD [facility] ER FS MIGRAINE [id number] 04/21/2019 01:30:00 01:54:00 DIS Emergency NEMO GALINDO MD [facility] ER FS HEADACHE,COUGH [id number] 04/12/2019 03:14:00 03:52:00 DIS Emergency SUSANA LOPEZ MD [facility] ER FS MIGRAINE SYMPTOMS [id number] 04/08/2019 00:35:00 01:59:00 DIS Emergency NEMO GALINDO MD A [facility] ER FS MIGRAINE [id number] 03/19/2019 01:52:00 03:48:00 DIS Outpatient JOHN RESENDIZ, SUSANA Ramachandran [facility] ER FS SEVERE MIGRAINE [id number] 03/14/2019 16:52:00 17:38:00 DIS Emergency HERON PERLA DO [facility] ER FS HEADACHE [id number] 01/30/2019 11:34:00 13:44:00 DIS Emergency JOHN RESENDIZ, SUSANA Ramachandran [facility] ER FS HEADACHE; VOMITING [id number] 01/01/2019 10:21:00 11:30:00 DIS Emergency TRISTEN LANDRY DO [facility] ER FS HEADACHE [id number] 12/23/2018 18:47:00 20:51:00 DIS Emergency VERONICA LORA DO [facility] ER FS MIGRAINE [id number] 2018 15:36:00 16:30:00 DIS Emergency KATIA LIRIANO DO [facility] ER FS MIGRAINE;NAUSEA;VOMITIN G [id number] 10/31/2018 16:57:00 18:30:00 DIS Emergency JUSTIN RESENDIZ, JAXSON Mejia [facility] ER FS HEADACHE [id number] 10/24/2018 15:25:00 23:59:59 C[facility] Outpatient RAINA RESENDIZ, WENCESLAO Medina [facility] RAD FS M54.41 [id number] 08/22/2018 09:55:00 12:18:00 DIS Emergency FARHAT RESENDIZ, SABINA gottlieb [facility] ER FS HEADACHE [id number] 08/21/2018 21:49:00 00:46:00 DIS Emergency JOEL ELLIOTT DO [facility] ER FS MIGRAINE, NAUSEA, SENSI TIVE TO LIGHT AND SMELLS
[2020-01-11] MEDS ORDERED: KETOROLAC 60 MG/2 ML VIAL IM ONE (02:15)
[2020-01-11] MEDS ORDERED: PROCHLORPERAZINE 10 MG/2ML INJ (COMPAZINE) IM ONE (02:15)
[2020-01-11] MEDS ORDERED: diphenhydrAMINE 50 MG/ML INJ (BENADRYL) IM ONE (02:15)
--- NOTE | 2020-01-11 02:20 | ED General ---
General Chief Complaint: Head/Cervical Problems Stated Complaint: HEADACHE Nursing Triage Note: Patient has a history of chronic migraines. Patient states her migraine started on 01/10/20. She took 1mg of Ativan and Benadryl sometime between 1800 and 2000 with no relief. Nursing Sepsis Screen: No Definite Risk Source of Information: Patient Exam Limitations: No Limitations History of Present Illness Date Seen by Provider: Jan 11, 2020 Time Seen by Provider: 02:00 Initial Comments Patient is a 39-year-old female with history of migraines who is well-known to this emergency department presents with typical migraine headache. Symptoms began yesterday morning gradually building over the afternoon and are worse this morning. Patient's headaches located in the septal region and radiates to the l eft retro-orbital region. Headache is described as dull, throbbing and associated with nausea vomiting. Patient is taken ibuprofen and Excedrin Migraine earlier without any relief. Denies any known trigger. Previous hysterectomy. Patient's on propanolol for suppression therapy. Timing/Duration: 12-24 Hours, Other (light/sound) Severity: Moderate Associated Systoms: Nausea/Vomiting Allergies and Home Medications Allergies Coded Allergies: Sulfa (Sulfonamide Antibiotics) (Verified Allergy, Mild, Itching, 03/14/19) cefuroxime (Verified Allergy, Unknown, 08/21/18) haloperidol (Verified Allergy, Unknown, 10/31/18) magnesium (Verified Allergy, Unknown, 08/21/18) prochlorperazine (Verified Allergy, Unknown, rash, 08/21/18) topiramate (Verified Allergy, Unknown, 08/21/18) tramadol (Verified Allergy, Unknown, 10/31/18) Uncoded Allergies: DHE (Allergy, Unknown, 10/31/18) Home Medications Butalbital/Aspirin/Caffeine 1 Each Capsule, 1 EACH PO TID PRN for Headache Prescribed by: MELANIE CLAYTON on 09/02/19 185 Cyclobenzaprine HCl 10 Mg Tablet, 10 MG PO Q8H PRN for SPASMS Prescribed by: JAXSON ANDERSON on 10/31/18 181 Promethazine HCl 50 Mg Supp.rect, 50 MG RC Q8H Prescribed by: TRISTEN LANDRY on 11/29/19 1555 Patient Home Medication List Home Medication List Reviewed: Yes Review of Systems Review of Systems Constitutional: see HPI EENTM: no symptoms reported Respiratory: no symptoms reported Cardiovascular: no symptoms reported Gastrointestinal: melena : No Musculoskeletal: neck pain Skin: no symptoms reported Psychiatric/Neurological: Anxiety Hematologic/Lymphatic: No Symptoms Reported Immunological/Allergic: no symptoms reported All Other Systems Reviewed Negative Unless Noted: Yes Past Lxmnxvs-Aiiakl-Bxuupm Hx Past Med/Social Hx: Reviewed Nursing Past Med/Soc Hx Patient Social History Alcohol Use: Denies Use Recreational Drug Use: No Smoking Status: Never a Smoker 2nd Hand Smoke Exposure: No Recent Foreign Travel: No Contact w/Someone Who Travel: No Recent Infectious Disease Expo: No Recent Hopitalizations: No Physical Abuse: No Sexual Abuse: No Mistreated: No Fear: No Seasonal Allergies Seasonal Allergies: No Past Medical History Surgeries: Yes 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 Respiratory: No Cardiac: No Neurological: Yes 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 oz. 70.084585di; 22.00 BMI Method:Stated General Appearance: No Apparent Distress, Anxious Eyes: Bilateral Eye Normal Inspection, Bilateral Eye PERRL, Bilateral Eye EOMI HEENT: PERRL/EOMI, Normal ENT Inspection Neck: Full Range of Motion Respiratory: Chest Non Tender, Lungs Clear Cardiovascular: Regular Rate, Rhythm Gastrointestinal: Soft Back: Normal Inspection Extremity: Normal Inspection, Normal Range of Motion Neurologic/Psychiatric: Alert, Oriented x3, No Motor/Sensory Deficits, cell operator II- XII Norm as Tested Skin: Normal Color Focused Exam Sepsis Stage: Ruled Out Progress/Results/Core Measures Suspected Sepsis Recent Fever Within 48 Hours: No Infection Criteria Present: None New/Unexplained Altered Menta: No Sepsis Screen: No Definite Risk SIRS Temperature: Pulse: 98 Respiratory Rate: 18 Blood Pressure 139 /79 Mean: 99 Results/Orders My Orders Orders - TRISTEN LANDRY DO Diphenhydramine Injection (Benadryl Inje (01/11/20 02:15) Prochlorperazine Injection (Compazine In (01/11/20 02:15) Ketorolac Injection (Toradol Injection) (01/11/20 02:15) Vital Signs/I&O 01/11/20 01:53 Temp 36.7 Pulse 98 Resp 18 B/P (MAP) 139/79 (99) Pulse Ox 98 O2 Delivery Room Air Capillary Refill : Less Than 3 Seconds Blood Pressure Mean: 99 Departure Communication (Admissions) Patient given IM injections per her request. Will discharge home with instructions to follow up with neurologist and PCP TIESHA Impression Primary Impression: Headache Disposition: HOME, SELF-CARE Condition: Stable Departure-Patient Inst. Referrals: WENCESLAO PARIS MD (PCP/Family) Primary Care Physician Patient Instructions: Migraines in Adults Add. Discharge Instructions: Please go home and rest. Follow up with your PCP and neurologist for pain management of chronic migraines. All discharge instructions reviewed with patient and/or family. Voiced understanding. TRISTEN LANDRY DO Jan 11, 2020 02:20
[2020-01-11] MEDS ORDERED: PROMETHAZINE INJ 25 MG/ML (PHENERGAN) AMP ONE (02:22)
[2020-01-11] MEDS ORDERED: PROMETHAZINE INJ 25 MG/ML (PHENERGAN) AMP IM ONE ×2 (02:30)
== END 2020-01-11 02:32 | disposition home or self-care (01) ==
LOC: EDUNIT# 01:49 → ER FS 01:52
DX: R51 Headache (principal); F41.9 Anxiety disorder, unspecified; Z86.69 Personal history of other diseases of the nervous system and sense organs; Z88.2 Allergy status to sulfonamides; Z88.1 Allergy status to other antibiotic agents; Z88.8 Allergy status to other drugs, medicaments and biological substances; Z88.5 Allergy status to narcotic agent
CPT/HCPCS: 99284

== ENCOUNTER 2020-01-16 21:57 | Emergency (ER) | payer MEDICARE ==
[~2020-01-16] VITALS: Ht 170.2 cm; Wt 71.8 kg
[2020-01-16] MEDS ORDERED: KETOROLAC 60 MG/2 ML VIAL IM STA (22:22)
--- OUTSIDE RECORDS SUMMARY | 2020-01-16 22:26 | XMS REPORT | Continuity of Care Document ---
Author Organization Unknown Address Unknown Phone Unavailable Allergies Active Description Code Type Severity Reaction Onset Reported/Identified Relationship to Patient Clinical Status Yes Sulfa (Sulfonamides) 491 Unknown N/A 06/24/2016 Yes Ceftin 3716 Unknown N/A 03/24/2018 Yes Compazine 3622 Unknown N/A 03/24/2018 Yes Magnesium 784 Unknown N/A 03/24/2018 Yes Topamax 17006 Unknown N/A 03/24/2018 Yes SULFA SULFA Mild itchy 08/21/2018 Yes cefuroxime [id number] Drug Allerg y Unknown N/A 08/21/2018 Yes magnesium [id number] Drug Allergy Unknown N/A 08/21/2018 Yes No Known Drug Allergies [id number] Drug Allergy Unknown N/A 08/21/2018 Yes prochlorperazine [id number] Drug Allergy Unknown rash 08/21/2018 Yes topiramate [id number] Drug Allerg y Unknown N/A 08/21/2018 Yes DHE DHE Unknown N/A 10/31/2018 Yes haloperidol [id number] Drug Aller gy Unknown N/A 10/31/2018 Yes tramadol [id number] Drug Allergy Unknown N/A 10/31/2018 Yes Sulfa (Sulfonamide Antibiotics) Z08336 0491 Drug Allergy Mild Itching 019 Medications [...] NOT INTRACTABLE, WITHOUT STATUS MIGRAINOSUS 07/18/2018 [facility] P G43.809 OTHER MIGRAINE, NOT INTRACTABLE, WITHOUT STATUS MIGRAI NOSUS 07/18/2018 [facility] A R51 HEADACHE 08/22/2018 [facility] [...] CERVIX AND UTER 04/24/2019 JOSIE RESENDIZ, NEMO Waters Ot F41. 9 ANXIETY DISORDER, UNSPECIFIED 04/24/2019 [...] STATUS TO NARCOTIC AGENT STATUS 06/17/2019 HENOK EBLTRAN MD Ot Z88.8 ALLERGY STATUS TO OTH [...] DO, MELANIE L Ot R51 HEADACHE 08/11/2019 [place] DO, MELANIE L Ot Z86.69 PERSONAL HISTORY [...] .2 ALLERGY STATUS TO SULFONAMIDES STATUS 08/13/2019 [place] DO, MELANIE L Ot Z88 .5 ALLERGY STATUS TO NARCOTIC AGENT STATUS 08/13/2019 [place] DO, MELANIE Mead Ot Z88 .8 ALLERGY STATUS TO OTH DRUG/MEDS/BIOL SUB 08/13/2019 [place] DO, MELANIE Mead Ot Z90.710 ACQUIRED ABSENCE [...] ABSENCE OF BOTH CERVIX AND UTER 08/25/2019 [facility], MARY BETH Carrillo Ot G43.7 09 CHRONIC MIGRAINE W/O AURA, NOT INTRACTAB 08/25/2019 [place] DO, MARY BETH Carrillo Ot R51 HEADACHE 08/25/2019 [place] DO, MARY BETH Carrillo Ot Z88.1 ALLERGY STATUS TO OTHER ANTIBIOTIC AGENT 08/25/2019 [place] DO, MARY BETH Carrillo Ot Z88.2 ALLERGY STATUS TO SULFONAMIDES STATUS 08/25/2019 [facility], MARY BETH Carrillo Ot Z88.5 ALLERGY STATUS TO NARCOTIC AGENT STATUS 08/25/2019 [place] DO, MARY BETH Carrillo Ot Z88.8 ALLERGY [...] ALLERGY STATUS TO OTH DRUG/MEDS/BIOL SUB 08/27/2019 [facility], MARY BETH Carrillo Ot G43.7 09 CHRONIC MIGRAINE W/O AURA, NOT INTRACTAB 08/27/2019 [place] DO, MARY BETH Carrillo Ot R51 HEADACHE 08/27/2019 [place] DO, MARY BETH Carrillo Ot Z88.1 ALLERGY STATUS TO OTHER ANTIBIOTIC AGENT 08/27/2019 [place] DO, MARY BETH Carrillo Ot Z88.2 ALLERGY STATUS TO SULFONAMIDES STATUS 08/27/2019 [place] DO, MARY BETH Carrillo Ot Z88.5 ALLERGY STATUS TO NARCOTIC AGENT STATUS 08/27/2019 [place] DO, MARY BETH Carrillo Ot Z88.8 ALLERGY STATUS TO OTH DRUG/MEDS/BIOL SUB 09/01/2019 GUIDOVERONICA CRUZ DO Ot G43.909 MIGRAINE, UNSP, NOT INTRACTABLE, WITHOUT 09/01/2019 VERONICA LORA DO Ot R51 HEADACHE 09/01/2019 [place] , VERONICA St Ot Z88 .1 ALLERGY STATUS TO OTHER ANTIBIOTIC AGENT 09/01/2019 [place] VERONICA ARAGON Ot Z88 .2 ALLERGY STATUS TO SULFONAMIDES STATUS 09/01/2019 [place] VERONICA ARAGON Ot Z88 .5 ALLERGY STATUS TO NARCOTIC AGENT STATUS 09/01/2019 [place] , VERONICA St Ot Z88 .8 ALLERGY [...] ULISSES H Ot R5 1 HEADACHE 10/13/2019 [facility] DO, ULISSES Yennifer Ot Z88.1 ALLERGY STATUS TO OTHER ANTIBIOTIC AGENT 10/13/2019 [facility] DO, ULISSES H Ot Z88.2 ALLERGY STATUS TO SULFONAMIDES STATUS 10/13/2019 [facility] DO, ULISSES H Ot Z88.5 ALLERGY STATUS TO NARCOTIC AGENT STATUS 10/13/2019 [facility] DO, ULISSES H Ot Z88.8 ALLERGY STATUS TO OTH DRUG/MEDS/BIOL SUB 10/19/2019 [facility] DO, ULISSES De Oliveira Ot G43.909 MIGRAINE, UNSP, NOT INTRACTABLE, WITHOUT 10/19/2019 [place] DO, ULISSES Yennifer Ot R5 1 HEADACHE 10/19/2019 [facility], ULISSES Yennifer Ot Z88.1 ALLERGY STATUS TO OTHER ANTIBIOTIC AGENT 10/19/2019 [facility], ULISSES H Ot Z88.2 ALLERGY STATUS TO SULFONAMIDES STATUS 10/19/2019 [facility], ULISSES H Ot Z88.5 ALLERGY STATUS TO NARCOTIC AGENT STATUS 10/19/2019 [facility], ULISSES H Ot Z88.8 ALLERGY STATUS TO OTH DRUG/MEDS/BIOL SUB 11/08/2019 MELANIE CLAYTON MD Ot R5 1 HEADACHE 11/08/2019 MATIL[facility] RESENDIZ, MELANIE Nielson Ot Z79.82 UNLOADER (CURRENT) USE OF ASPIRIN 11/08/2019 MELANIE CLAYTON [...] 11/29/2019 [place] DO, HERON L Ot Z79.82 JAIL (CURRENT) USE OF ASPIRIN 11/29/2019 [place] DO, HERON L Ot Z88.1 ALLERGY STATUS TO OTHER ANTIBIOTIC AGENT 11/29/2019 [place] DO, HERON L Ot Z88.2 ALLERGY STATUS TO SULFONAMIDES STATUS 11/29/2019 [place] DO, HERON L Ot Z88.5 ALLERGY STATUS TO NARCOTIC AGENT STATUS 11/29/2019 [place] DO, HERON L Ot Z88.8 ALLERGY STATUS TO OTH DRUG/MEDS/BIOL SUB 11/29/2019 [facility] DO, TRISTEN Ot G43.909 MIGRAINE, UNSP, NOT INTRACTABLE, WITHOUT 11/29/2019 [facility] DO, TRISTEN Ot R51 HEADACHE 11/29/2019 [facility] DO, TRISTEN Ot Z79.82 JAIL (CURRENT) USE OF ASPIRIN 11/29/2019 [facility] DO, [...] 12/02/2019 [place] DO, HERON Mead Ot Z79.82 UNLOADER (CURRENT) USE OF ASPIRIN 12/02/2019 [place]OV[place] DO, [...] LANDRY DO, TRISTEN Ot R51 HEADACHE 12/02/2019 [place] DO, TRISTEN Ot Z79.82 JAIL (CURRENT) USE OF ASPIRIN 12/02/2019 [place] DO, TRISTEN Ot Z88.1 ALLERGY STATUS TO OTHER ANTIBIOTIC AGENT 12/02/2019 [place] DO, TRISTEN Ot Z88.2 ALLERGY STATUS TO SULFONAMIDES STATUS 12/02/2019 [place] DO, TRISTEN Ot Z88.5 ALLERGY STATUS TO NARCOTIC AGENT STATUS 12/02/2019 [place] DO, TRISTEN Ot Z88.8 ALLERGY STATUS TO OTH DRUG/MEDS/BIOL SUB 12/12/2019 [place] DO, HERON Mead Ot G43.709 CHRONIC MIGRAINE W/O AURA, NOT INTRACTAB 12/12/2019 [place] DO, HERON L Ot R51 HEADACHE 12/12/2019 [place] DO, HERON L Ot Z88.1 ALLERGY STATUS TO OTHER ANTIBIOTIC AGENT 12/12/2019 [place] DO, HERON L Ot Z88.2 ALLERGY STATUS TO SULFONAMIDES STATUS 12/12/2019 [place] DO, HERON L Ot Z88.5 ALLERGY STATUS TO NARCOTIC AGENT STATUS 12/12/2019 [place] DO, HERON L Ot Z88.8 ALLERGY STATUS TO OTH DRUG/MEDS/BIOL SUB 01/14/2020 [place] DO, TRISTEN Ot F41.9 ANXIETY DISORDER, UNSPECIFIED 01/14/2020 [place] DO, TRISTEN Ot R51 HEADACHE 01/14/2020 [place] DO, TRISTEN Ot Z86.69 PERSONAL HISTORY OF DIS OF THE NERVOUS S 01/14/2020 [place] DO, TRISTEN Ot Z88.1 ALLERGY STATUS TO OTHER ANTIBIOTIC AGENT 01/14/2020 [place] DO, TRISTEN Ot Z88.2 ALLERGY STATUS TO SULFONAMIDES STATUS 01/14/2020 [place] DO, TRISTEN Ot Z88.5 ALLERGY STATUS TO NARCOTIC AGENT STATUS 01/14/2020 [place] DO, TRISTEN Ot Z88.8 ALLERGY STATUS TO [...] Status Pt. Type Provider Facility Loc./Unit Complaint [id number] 12/02/2019 14:00:00 12/02/2019 23:59: 59 [facility] Outpatient WENCESLAO PARIS [facility] [id number] 04/16/2019 07:30:00 Document Registration [id number] 01/29/2019 18:20:00 Document Registration [id number] 12/12/2018 14:15:00 Document Registration [id number] 11/07/2018 17:20:00 Document Registration [id number] 10/25/2018 16:10:00 Document Registration [id number] 10/12/2018 16:20:00 Document Registration [id number] 06/23/2018 04:07:00 ACT Unknown TRUNG WIGGINS [facility] NSER HEADACHE [id number] 06/22/2018 22:07:00 ACT Unknown TRUNG WIGGINS [facility] NSER HEADACHE [id number] 03/24/2018 19:16:00 [facility] [id number] 01/09/2017 18:47:00 ACT Unknown REDD GASTELUM [facility] NSER HEADACHE [id number] 01/07/2017 21:26:00 ACT Unknown Alma Rosa ADEN A-ED [facility] NSER HEADACHE [id number] 06/24/2016 20:12:00 ACT Unknown LEIDA AKHTAR [facility] NSER HEADACHE [id number] 06/26/2015 20:27:00 ACT Unknown JC LLANES [id number] 01/11/2020 01:52:00 02:32:00 DIS Outpatient TRISTEN LANDRY DO Via [facility] ER FS HEADACHE [id number] 12/12/2019 05:44:00 06:22:00 DIS Emergency RORENESTHERON SILVERMAN DO Via [facility] ER FS MIGRAINE [id number] 11/29/2019 15:01:00 16:00:00 DIS Emergency TRISTEN LANDRY DO Via [facility] ER FS HEADACHE;VOMITING [id number] 11/29/2019 01:20:00 03:03:00 DIS Emergency ROHERON SNOW DO Via [facility] ER FS HEADACHE [id number] 11/08/2019 14:24:00 15:03:00 DIS Emergency MELANIE CLAYTON MD Via [facility] ER FS HEADACHE [id number] 10/10/2019 05:42:00 06:38:00 DIS Emergency ULISSES WHITE DO Via [facility] ER FS MIGRAINE [id number] 09/24/2019 18:49:00 19:29:00 DIS Emergency CANDI TOM DO Via [facility] ER FS MIGRAINE,VOMITING [id number] 09/02/2019 18:34:00 19:21:00 DIS Emergency MELANIE CLAYTON MD Via [facility] ER FS MIGRAINE,NAUSEA,VOMITIN G [id number] 08/27/2019 01:02:00 01:24:00 DIS Emergency VERONICA LORA DO Via [facility] ER FS MIGRAINE [id number] 08/25/2019 03:50:00 05:08:00 DIS Emergency MARY BETH ALEMAN DO Via [facility] ER FS HEADACHE [id number] 08/12/2019 03:28:00 03:53:00 DIS Outpatient SUSANA LOPEZ MD Via [facility] ER FS MIGRAINE [id number] 08/10/2019 23:52:00 00:24:00 DIS Emergency MELANIE BERNABE DO Via [facility] ER FS HEADACHE [id number] 08/03/2019 19:30:00 20:55:00 DIS Emergency JOHN RESENDIZ, SUSANA Ramachandran [facility] ER FS HEADACHE [id number] 06/25/2019 00:00:00 00:47:00 DIS Emergency NEMO GALINDO MD Via [facility] ER FS MIGRAINE [id number] 06/24/2019 18:43:00 19:38:00 DIS Emergency JOSIE RESENDIZ, NEMO Waters Via [facility] ER FS MIGRAINE, N/V [id number] 06/15/2019 00:15:00 00:48:00 DIS Emergency HENOK BELTRAN MD Via [facility] ER FS HEADACHE/NAUSEA/VOMITTI NG [id number] 05/30/2019 17:25:00 18:36:00 DIS Emergency NEMO GALINDO MD Via [facility] ER FS MIGRAINE [id number] 05/27/2019 18:38:00 19:28:00 DIS Emergency HENOK BELTRAN MD Via [facility] ER FS MIGRAINE SYMPTOMS [id number] 05/20/2019 18:38:00 19:20:00 DIS Emergency CANDI TOM DO Via [facility] ER FS HEADACHE [id number] 05/16/2019 18:57:00 19:30:00 DIS Emergency ROVENHERON RICE DO Via [facility] ER FS MIGRAINE [id number] 05/04/2019 22:14:00 23:07:00 DIS Emergency SUSANA LOPEZ MD Via [facility] ER FS MIGRAINE [id number] 04/21/2019 01:30:00 01:54:00 DIS Emergency JOSIE RESENDIZ, NEMO Waters Via [facility] ER FS HEADACHE,COUGH [id number] 04/12/2019 03:14:00 03:52:00 DIS Emergency SUSANA LOPEZ MD Via [facility] ER FS MIGRAINE SYMPTOMS [id number] 04/08/2019 00:35:00 01:59:00 DIS Emergency JOSIE RESENDIZ, NEMO Waters [facility] ER FS MIGRAINE [id number] 03/19/2019 01:52:00 03:48:00 DIS Outpatient SUSANA LOPEZ MD Via [facility] ER FS SEVERE MIGRAINE [id number] 03/14/2019 16:52:00 17:38:00 DIS Emergency HERON PERLA DO Via [facility] ER FS HEADACHE [id number] 01/30/2019 11:34:00 13:44:00 DIS Emergency SUSANA LOPEZ MD Via [facility] ER FS HEADACHE; VOMITING [id number] 01/01/2019 10:21:00 11:30:00 DIS Emergency TRISTEN LANDRY DO Via [facility] ER FS HEADACHE [id number] 12/23/2018 18:47:00 20:51:00 DIS Emergency VERONICA LORA DO Via [facility] ER FS MIGRAINE [id number] 2018 15:36:00 16:30:00 DIS Emergency KATIA LIRIANO DO Via [facility] ER FS MIGRAINE;NAUSEA;VOMITIN G [id number] 10/31/2018 16:57:00 18:30:00 DIS Emergency JUSTIN RESENDIZ, JAXSON Mejia [facility] ER FS HEADACHE [id number] 10/24/2018 15:25:00 23:59:59 CLS Outpatient RAINA RESENDIZ, WENCESLAO Medina Via [facility] RAD FS M54.41 [id number] 08/22/2018 09:55:00 12:18:00 DIS Emergency FARHAT RESENDIZ, SABINA Burgos a [facility] ER FS HEADACHE [id number] 08/21/2018 21:49:00 00:46:00 DIS Emergency JOEL ELLIOTT DO Via [facility] ER FS MIGRAINE, NAUSEA, SENSI TIVE TO LIGHT AND SMELLS [id number] 01/16/2020 21:58:[address] Emergency FARHAT RESENDIZ, SABINA Purdy Via [facility] ER FS MIGRIANE
[2020-01-16] MEDS ORDERED: diphenhydrAMINE 50 MG/ML INJ (BENADRYL) IM ONE (22:30)
[2020-01-16] MEDS ORDERED: PROMETHAZINE INJ 25 MG/ML (PHENERGAN) AMP IM ONE (22:30)
--- NOTE | 2020-01-16 22:31 | ED Headache ---
General Chief Complaint: Head/Cervical Problems Stated Complaint: MIGRIANE Nursing Triage Note: pt states urena since last night at 2200, taken home meds but not working Nursing Sepsis Screen: No Definite Risk Source: patient Exam Limitations: no limitations History of Present Illness Date Seen by Provider: Jan 16, 2020 Time Seen by Provider: 22:15 Initial Comments 39-year-old female with long history of migraine headaches who presents with generalized frontal headache, nausea and photophobia. She states this is her typical headache and believes that it was precipitated by recent Botox injections. She states that it is not unusual for her to have this occur following the injection. She states that it is difficult to start an IV on her and that she requested IM injections. There is no change in her current headache from her typical recurrent headache. She has no new warning signs. Timing/Duration: 24 hours Severity/Quality: severe Location: frontal Prior Headaches/Recent Trauma: no recent headache/trauma, frequent headaches Modifying Factors: improves with exposure to light, improves with movement Associated Symptoms: No confusion, No fever/chills, No loss of consciousness; nausea/vomiting; No sinus infection, No stiff neck Allergies and Home Medications Allergies Coded Allergies: Sulfa (Sulfonamide Antibiotics) (Verified Allergy, Mild, Itching, 03/14/19) cefuroxime (Verified Allergy, Unknown, 08/21/18) haloperidol (Verified Allergy, Unknown, 10/31/18) magnesium (Verified Allergy, Unknown, 08/21/18) prochlorperazine (Verified Allergy, Unknown, rash, 08/21/18) topiramate (Verified Allergy, Unknown, 08/21/18) tramadol (Verified Allergy, Unknown, 10/31/18) Uncoded Allergies: DHE (Allergy, Unknown, 10/31/18) Home Medications Butalbital/Aspirin/Caffeine 1 Each Capsule, 1 EACH PO TID PRN for Headache Prescribed by: MELANIE CLAYTON on 09/02/19 185 Cyclobenzaprine HCl 10 Mg Tablet, 10 MG PO Q8H PRN for SPASMS Prescribed by: JAXSON ANDERSON on 10/31/18 181 Promethazine HCl 50 Mg Supp.rect, 50 MG RC Q8H Prescribed by: TRISTEN LANDRY on 11/29/19 1555 Patient Home Medication List Home Medication List Reviewed: Yes Review of Systems Review of Systems Constitutional: see HPI Eyes: See HPI Ears, Nose, Mouth, Throat: no symptoms reported Respiratory: no symptoms reported Cardiovascular: no symptoms reported Gastrointestinal: nausea Genitourinary: no symptoms reported : No Musculoskeletal: no symptoms reported Skin: no symptoms reported Psychiatric/Neurological: No Symptoms Reported Past Mkvgrkf-Epcjtw-Apnoqq Hx Past Med/Social Hx: Reviewed Nursing Past Med/Soc Hx Patient Social History Alcohol Use: Denies Use Recreational Drug Use: No Smoking Status: Never a Smoker 2nd Hand Smoke Exposure: No Recent Foreign Travel: No Contact w/Someone Who Travel: No Recent Infectious Disease Expo: No Recent Hopitalizations: No Physical Abuse: No Sexual Abuse: No Mistreated: No Fear: No Seasonal Allergies Seasonal Allergies: No Past Medical History Surgeries: Yes 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 Respiratory: No Cardiac: No Neurological: Yes 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 oz. 70.886811zr; 24.00 BMI Method:Stated General Appearance: WD/WN, moderate distress (photophobic), thin HEENT: PERRL/EOMI, normal ENT inspection, pharynx normal; No scleral icterus (R), No scleral icterus (L); photophobia Neck: non-tender, full range of motion, supple, normal inspection Cardiovascular: regular rate, rhythm, no edema, no gallop, no JVD, no murmur Respiratory: chest non-tender, lungs clear, normal breath sounds, no respiratory distress, no accessory muscle use Gastrointestinal: normal bowel sounds, non tender, soft, no organomegaly, no pulsatile mass Back: normal inspection, no CVA tenderness, no vertebral tenderness Extremities: normal range of motion, non-tender, normal inspection, no pedal edema, no calf tenderness Psychiatric: alert, oriented x 3 Crainal Nerves: normal hearing, normal speech, PERRL; No abnormal speech, No facial asymmetry, No facial droop, No facial paresthesias, No facial weakness Coordination/Gait: normal finger to nose Motor/Sensory: no motor deficit, no sensory deficit, no pronator drift Reflexes: 2+ Bicep (R), 2+ Bicep (L) Skin: normal color, warm/dry Lymphatic: no adenopathy Progress/Results/Core Measures Results/Orders My Orders Orders - SABINA DOUGHERTY MD Ketorolac Injection (Toradol Injection) (01/16/20 22:22) Promethazine Injection (Phenergan Injec (01/16/20 22:30) Diphenhydramine Injection (Benadryl Inje (01/16/20 22:30) Medications Given in ED Current Medications Medications Dose Ordered Sig/Shell Route Start Time Stop Time Status Last Admin Dose Admin Diphenhydramine HCl 50 mg ONCE ONCE IM 01/16/20 22:30 01/16/20 22:31 DC 01/16/20 22:40 50 MG Promethazine HCl 50 mg ONCE ONCE IM 01/16/20 22:30 01/16/20 22:31 DC 01/16/20 22:40 50 MG Vital Signs/I&O 01/16/20 22:15 Temp 36.3 Pulse 90 Resp 16 B/P (MAP) 130/79 (96) Pulse Ox 100 O2 Delivery Room Air Blood Pressure Mean: 96 Progress Progress Note : Time: 22:29 Progress Note We'll proceed per her request with Toradol and Phenergan and Benadryl IM without additional work up and understands the limitations of this approach and that she might be additionally benefitted by IVF or further investigation. She understands and accepts the phenergan is chemically similar to Compazine which she has not had problems in the past with the administration of phenergan. 2253 Feeling much better and states that she is ready to go home and has ride. Discharged with headache precautions and no new RX. To follow up with PCP and neuro. Departure Impression Primary Impression: Migraine Qualified Codes: G43.119 - Migraine with aura, intractable, without status migrainosus Disposition: HOME, SELF-CARE Condition: Improved Departure-Patient Inst. Decision time for Depature: 22:52 Referrals: WENCESLAO PARIS MD (PCP/Family) Primary Care Physician 2-3 days, sooner as needed Patient Instructions: Migraine Headache (DC) SABINA DOUGHERTY MD Jan 16, 2020 22:31
[2020-01-16 22:55] VITALS: BP 116/68
== END 2020-01-16 22:55 | disposition home or self-care (01) ==
LOC: EDUNIT# 21:57 → ER FS 21:58
DX: G43.909 Migraine, unspecified, not intractable, without status migrainosus (principal); Z88.2 Allergy status to sulfonamides; Z88.1 Allergy status to other antibiotic agents; Z88.5 Allergy status to narcotic agent; Z88.8 Allergy status to other drugs, medicaments and biological substances
CPT/HCPCS: 99284

== ENCOUNTER 2020-01-20 04:39 | Emergency (ER) | payer MEDICARE ==
[~2020-01-20] VITALS: Ht 170.1 cm; Wt 68.0 kg
--- OUTSIDE RECORDS SUMMARY | 2020-01-20 04:46 | XMS REPORT | Continuity of Care Document ---
Author Organization Unknown Address Unknown Phone Unavailable Allergies Active Description Code Type Severity Reaction Onset Reported/Identified Relationship to Patient Clinical Status Yes Sulfa (Sulfonamides) 491 Unknown N/A 06/24/2016 Yes Ceftin 3716 Unknown N/A 03/24/2018 Yes Compazine 3622 Unknown N/A 03/24/2018 Yes Magnesium 784 Unknown N/A 03/24/2018 Yes Topamax 44656 Unknown N/A 03/24/2018 Yes SULFA SULFA Mild itchy 08/21/2018 Yes cefuroxime [id number] Drug Allerg y Unknown N/A 08/21/2018 Yes magnesium [id number] Drug Allergy Unknown N/A 08/21/2018 Yes No Known Drug Allergies [id number] Drug Allergy Unknown N/A 08/21/2018 Yes prochlorperazine [id number] Drug Allergy Unknown rash 08/21/2018 Yes topiramate [id number] Drug Allerg y Unknown N/A 08/21/2018 Yes DHE DHE Unknown N/A 10/31/2018 Yes haloperidol [id number] Drug Aller gy Unknown N/A 10/31/2018 Yes tramadol [id number] Drug Allergy Unknown N/A 10/31/2018 Yes Sulfa (Sulfonamide Antibiotics) [id number] 0491 Drug Allergy Mild Itching 019 Medications [...] AURA, NOT INTRACTABLE, WITHOUT STATUS MIGRAINOSUS 07/18/2018 [facility] P G43.809 OTHER MIGRAINE, NOT INTRACTABLE, WITHOUT STATUS MIGRAI NOSUS 07/18/2018 [facility] A R51 HEADACHE 08/22/2018 [...] ABSENCE OF BOTH CERVIX AND UTER 02/03/2019 SUASNA LOPEZ MD Ot F41.9 ANXIETY DISORDER, UNSPECIFIED [...] ALLERGY STATUS TO NARCOTIC AGENT STATUS 03/21/2019 USSANA LOPEZ MD Ot Z88.8 ALLERGY STATUS TO [...] ALLERGY STATUS TO SULFONAMIDES STATUS 04/11/2019 JOSIE RESEDNIZ, NEMO A Ot Z88. 5 ALLERGY STATUS [...] STATUS TO OTH DRUG/MEDS/BIOL SUB 04/24/2019 JOSIE RESEDNIZ, NEMO A Ot Z90.710 ACQUIRED ABSENCE OF [...] ALLERGY STATUS TO SULFONAMIDES STATUS 06/15/2019 HENOK BELRTAN MD Ot Z88.5 ALLERGY STATUS TO NARCOTIC [...] DO, MELANIE L Ot R51 HEADACHE 08/11/2019 [place] DO, MELANIE L Ot Z86.69 PERSONAL HISTORY [...] .2 ALLERGY STATUS TO SULFONAMIDES STATUS 08/13/2019 [place] DO, MELANIE L Ot Z88 .5 ALLERGY STATUS TO NARCOTIC AGENT STATUS 08/13/2019 [place] DO, MELANIE Mead Ot Z88 .8 ALLERGY STATUS TO OTH DRUG/MEDS/BIOL SUB 08/13/2019 [place] DO, MELANIE Mead Ot Z90.710 ACQUIRED ABSENCE [...] ABSENCE OF BOTH CERVIX AND UTER 08/25/2019 [facility], MARY BETH Carrillo Ot G43.7 09 CHRONIC MIGRAINE W/O AURA, NOT INTRACTAB 08/25/2019 [place] DO, MARY BETH Carrillo Ot R51 HEADACHE 08/25/2019 [place] DO, MARY BETH Carrillo Ot Z88.1 ALLERGY STATUS TO OTHER ANTIBIOTIC AGENT 08/25/2019 [place] DO, MARY BETH Carrillo Ot Z88.2 ALLERGY STATUS TO SULFONAMIDES STATUS 08/25/2019 [facility], MARY BETH Carrillo Ot Z88.5 ALLERGY STATUS TO NARCOTIC AGENT STATUS 08/25/2019 [place] DO, MARY BETH Carrillo Ot Z88.8 ALLERGY [...] ALLERGY STATUS TO OTH DRUG/MEDS/BIOL SUB 08/27/2019 [facility], MARY BETH Carrillo Ot G43.7 09 CHRONIC MIGRAINE W/O AURA, NOT INTRACTAB 08/27/2019 [place] DO, MARY BETH Carrillo Ot R51 HEADACHE 08/27/2019 [place] DO, MARY BETH Carrillo Ot Z88.1 ALLERGY STATUS TO OTHER ANTIBIOTIC AGENT 08/27/2019 [place] DO, MARY BETH Carrillo Ot Z88.2 ALLERGY STATUS TO SULFONAMIDES STATUS 08/27/2019 [place] DO, MARY BETH Carrillo Ot Z88.5 ALLERGY STATUS TO NARCOTIC AGENT STATUS 08/27/2019 [place] DO, MARY BETH Carrillo Ot Z88.8 ALLERGY STATUS TO OTH DRUG/MEDS/BIOL SUB 09/01/2019 GUIDOVERONICA CRUZ DO Ot G43.909 MIGRAINE, UNSP, NOT INTRACTABLE, WITHOUT 09/01/2019 VERONICA LORA DO Ot R51 HEADACHE 09/01/2019 [place] , VERONICA St Ot Z88 .1 ALLERGY STATUS TO OTHER ANTIBIOTIC AGENT 09/01/2019 [place] VERONICA ARAGON Ot Z88 .2 ALLERGY STATUS TO SULFONAMIDES STATUS 09/01/2019 [place] VERONICA ARAGON Ot Z88 .5 ALLERGY STATUS TO NARCOTIC AGENT STATUS 09/01/2019 [place] , VERONICA St Ot Z88 .8 ALLERGY [...] F41. 9 ANXIETY DISORDER, UNSPECIFIED 09/24/2019 CANDI OTM DO Ot G43.909 MIGRAINE, UNSP, NOT INTRACTABLE, [...] ULISSES H Ot R5 1 HEADACHE 10/13/2019 [facility] DO, ULISSES Yennifer Ot Z88.1 ALLERGY [...] ULISSES Yennifer Ot R5 1 HEADACHE 10/19/2019 [facility], ULISSES Yennifer Ot Z88.1 ALLERGY STATUS TO OTHER ANTIBIOTIC AGENT 10/19/2019 [facility], ULISSES H Ot Z88.2 ALLERGY STATUS TO SULFONAMIDES STATUS 10/19/2019 [facility], ULISSES H Ot Z88.5 ALLERGY STATUS TO NARCOTIC AGENT STATUS 10/19/2019 [facility], ULISSES H Ot Z88.8 ALLERGY STATUS TO OTH DRUG/MEDS/BIOL SUB 11/08/2019 MELANIE CLAYTON MD Ot R5 1 HEADACHE 11/08/2019 [facility] RESENDIZ, MELANIE Nielson Ot 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2 ALLERGY STATUS TO SULFONAMIDES STATUS 12/02/2019 [facility] DO, TRISTEN Ot Z88.5 ALLERGY STATUS TO NARCOTIC AGENT STATUS 12/02/2019 [facility] DO, TRISTEN Ot Z88.8 ALLERGY STATUS TO [...] TO NARCOTIC AGENT STATUS 12/12/2019 [facility] DO, HEORN L Ot Z88.8 ALLERGY STATUS TO OTH DRUG/MEDS/BIOL SUB 01/11/2020 [facility] DO, TRISTEN Ot F41.9 ANXIETY DISORDER, UNSPECIFIED 01/11/2020 [facility] DO, TRISTEN Ot R51 HEADACHE 01/11/2020 [facility] DO, TRISTEN Ot Z86.69 PERSONAL HISTORY OF DIS OF THE NERVOUS S 01/11/2020 [place] DO, TRISTEN Ot Z88.1 ALLERGY STATUS TO OTHER ANTIBIOTIC AGENT 01/11/2020 [facility] DO, TRISTEN Ot Z88.2 ALLERGY STATUS TO SULFONAMIDES STATUS 01/11/2020 [place] DO, TRISTEN Ot Z88.5 ALLERGY STATUS TO NARCOTIC AGENT STATUS 01/11/2020 [facility] DO, TRISTEN Ot Z88.8 ALLERGY STATUS TO OTH DRUG/MEDS/BIOL SUB 01/14/2020 [place] DO, TRISTEN Ot F41.9 ANXIETY DISORDER, UNSPECIFIED 01/14/2020 [place] DO, TRISTEN Ot R51 HEADACHE 01/14/2020 [facility] DO, TRISTEN Ot Z86.69 PERSONAL HISTORY OF DIS OF THE NERVOUS S 01/14/2020 [facility] DO, TRISTEN Ot Z88.1 ALLERGY STATUS TO OTHER ANTIBIOTIC AGENT 01/14/2020 [facility] DO, TRISTEN Ot Z88.2 ALLERGY STATUS TO SULFONAMIDES STATUS 01/14/2020 TRISTEN LANDRY DO Ot Z88.5 ALLERGY STATUS TO NARCOTIC AGENT STATUS 01/14/2020 TRISTEN LANDRY DO Ot Z88.8 ALLERGY STATUS TO OTH DRUG/MEDS/BIOL SUB 01/19/2020 SABINA DOUGHERTY MD Ot G43.909 MIGRAINE, UNSP, NOT INTRACTABLE, WITHOUT 01/19/2020 SABINA DOUGHERTY MD Ot R51 HEADACHE 01/19/2020 SABINA DOUGHERTY MD Ot Z88.1 ALLERGY STATUS TO OTHER ANTIBIOTIC AGENT 01/19/2020 SABINA DOUGHERTY MD Ot Z88.2 ALLERGY STATUS TO SULFONAMIDES STATUS 01/19/2020 SABINA DOUGHERTY MD Ot Z88.5 ALLERGY STATUS TO NARCOTIC AGENT STATUS 01/19/2020 SABINA DOUGHERTY MD Ot Z88.8 ALLERGY STATUS [...] Status Pt. Type Provider Facility Loc./Unit Complaint [id number] 12/02/2019 14:00:00 12/02/2019 23:59: 59 CLS Out[facility] [id number] 04/16/2019 07:30:00 Document Registration [id number] 01/29/2019 18:20:00 Document Registration [id number] 12/12/2018 14:15:00 Document Registration [id number] 11/07/2018 17:20:00 Document Registration [id number] 10/25/2018 16:10:00 Document Registration [id number] 10/12/2018 16:20:00 Document Registration [id number] 06/23/2018 04:07:00 ACT Unknown TRUNG WIGGINS [facility] NSER HEADACHE [id number] 06/22/2018 22:07:00 [facility] [id number] 03/24/2018 19:16:00 [facility] [id number] 01/09/2017 18:47:00 ACT Unknown REDD GASTELUM [facility] NSER HEADACHE [id number] 01/07/2017 21:26:00 ACT [facility] [id number] 06/24/2016 20:12:00 ACT [facility] NSER HEADACHE [id number] 06/26/2015 20:27:00 ACT Unknown JC LLANES [id number] 01/16/2020 21:58:00 020 22:55:00 DIS Outpatient FARHAT RESENDIZ, SABINA tapia [facility] ER FS MIGRIANE [id number] 01/11/2020 01:52:00 020 02:32:00 DIS Emergency TRISTEN LANDRY DO Via [facility] ER FS HEADACHE [id number] 12/12/2019 05:44:00 020 06:22:00 DIS Emergency HERON PERLA DO Via [facility] ER FS MIGRAINE [id number] 11/29/2019 15:01:00 16:00:00 DIS Emergency LANDRY TRISTEN ARAGON Via [facility] ER FS HEADACHE;VOMITING [id number] 11/29/2019 01:20:00 03:03:00 DIS Emergency ROVENSTINE HERON ARAGON Via [facility] ER FS HEADACHE [id number] 11/08/2019 14:24:00 15:03:00 DIS Emergency MATILDE RESENDIZ, MELANIE Nielson [facility] ER FS HEADACHE [id number] 10/10/2019 05:42:00 06:38:00 DIS Emergency CINDY DOULISSES Via [facility] ER FS MIGRAINE [id number] 09/24/2019 18:49:00 19:29:00 DIS Emergency CANDI TOM DO Via [facility] ER FS MIGRAINE,VOMITING [id number] 09/02/2019 18:34:00 19:21:00 DIS Emergency MATILDE RESENDIZ, MELANIE Nielson [facility] ER FS MIGRAINE,NAUSEA,VOMITIN G [id number] 08/27/2019 01:02:00 01:24:00 DIS Emergency VERONICA LORA DO Via [facility] ER FS MIGRAINE [id number] 08/25/2019 03:50:00 05:08:00 DIS Emergency MARY BETH ALEMAN DO Via [facility] ER FS HEADACHE [id number] 08/12/2019 03:28:00 03:53:00 DIS Outpatient SUSANA LOPEZ MD Via [facility] ER FS MIGRAINE [id number] 08/10/2019 23:52:00 00:24:00 DIS Emergency MELANIE BERNABE DO Via [facility] ER FS HEADACHE [id number] 08/03/2019 19:30:00 20:55:00 DIS Emergency SUSANA LOPEZ MD Via [facility] ER FS HEADACHE [id number] 06/25/2019 00:00:00 00:47:00 DIS Emergency NEMO GALINDO MD Via [facility] ER FS MIGRAINE [id number] 06/24/2019 18:43:00 19:38:00 DIS Emergency NEMO GALINDO MD Via [facility] ER FS MIGRAINE, N/V [id number] 06/15/2019 00:15:00 00:48:00 DIS Emergency HENOK BELTRAN MD Via [facility] ER FS HEADACHE/NAUSEA/VOMITTI NG [id number] 05/30/2019 17:25:00 18:36:00 DIS Emergency NEMO GALINDO MD Via [facility] ER FS MIGRAINE [id number] 05/27/2019 18:38:00 19:28:00 DIS Emergency HENOK BELTRAN MD Via [facility] ER FS MIGRAINE SYMPTOMS [id number] 05/20/2019 18:38:00 19:20:00 DIS Emergency CANDI TOM DO Via [facility] ER FS HEADACHE [id number] 05/16/2019 18:57:00 19:30:00 DIS Emergency ROVENSTHERON SILVERMAN DO Via [facility] ER FS MIGRAINE [id number] 05/04/2019 22:14:00 23:07:00 DIS Emergency SUSANA LOPEZ MD Via [facility] ER FS MIGRAINE [id number] 04/21/2019 01:30:00 01:54:00 DIS Emergency NEMO GALINDO MD Via [facility] ER FS HEADACHE,COUGH [id number] 04/12/2019 03:14:00 03:52:00 DIS Emergency SUSANA LOPEZ MD Via [facility] ER FS MIGRAINE SYMPTOMS [id number] 04/08/2019 00:35:00 01:59:00 DIS Emergency JOSIE RESENDIZ, NEMO Waters [facility] ER FS MIGRAINE [id number] 03/19/2019 01:52:00 03:48:00 DIS Outpatient JOHN RESENDIZ, SUSANA Ramachandran Via [facility] ER FS SEVERE MIGRAINE [id number] 03/14/2019 16:52:00 17:38:00 DIS Emergency HERON PERLA DO Via [facility] ER FS HEADACHE [id number] 01/30/2019 11:34:00 13:44:00 DIS Emergency JOHN RESENDIZ, SUSANA Ramachandran Via [facility] ER FS HEADACHE; VOMITING [id number] 01/01/2019 10:21:00 11:30:00 DIS Emergency TRISTEN LANDRY DO Via [facility] ER FS HEADACHE [id number] 12/23/2018 18:47:00 20:51:00 DIS Emergency VERONICA LORA DO Via [facility] ER FS MIGRAINE [id number] 2018 15:36:00 16:30:00 DIS Emergency KATIA LIRIANO DO Via [facility] ER FS MIGRAINE;NAUSEA;VOMITIN G [id number] 10/31/2018 16:57:00 18:30:00 DIS Emergency JUSTIN RESENDIZ, JAXSON Mejia Via [facility] ER FS HEADACHE [id number] 10/24/2018 15:25:00 23:59:59 CLS Outpatient RAINA RESENDIZ, WENCESLAO Medina Via [facility] RAD FS M54.41 [id number] 08/22/2018 09:55:00 12:18:00 DIS Emergency FARHAT RESENDIZ, SABINA Burgos a [facility] ER FS HEADACHE [id number] 08/21/2018 21:49:00 00:46:00 DIS Emergency JOEL ELLIOTT DO Via [facility] ER FS MIGRAINE, NAUSEA, SENSI TIVE TO LIGHT AND SMELLS
[2020-01-20] MEDS ORDERED: diphenhydrAMINE 50 MG/ML INJ (BENADRYL) IM STA (04:47)
--- NOTE | 2020-01-20 04:51 | ED General ---
General Stated Complaint: MIGRAINE Source of Information: Patient, Old Records, RN/MD Exam Limitations: No Limitations History of Present Illness Date Seen by Provider: Jan 20, 2020 Time Seen by Provider: 04:40 Initial Comments This patient is a 39-year-old female well-known facility with multiple visits to the emergency department for headaches. Patient was just seen 2 days ago for the same. Patient requested get Toradol and Benadryl injection. Her chronic headaches. Patient does take propanolol and Maxalt at home but admits that she has not taken her Maxalt but she states it doesn't work. Did discuss with the patient about options. Patient will get Toradol Benadryl injection. Patient is advised to follow up with her primary care physician discuss possible evaluation by neurology and possible medication changes for her chronic headaches. Timing/Duration: 4-6 Hours Severity: Mild Allergies and Home Medications Allergies Coded Allergies: Sulfa (Sulfonamide Antibiotics) (Verified Allergy, Mild, Itching, 03/14/19) cefuroxime (Verified Allergy, Unknown, 08/21/18) haloperidol (Verified Allergy, Unknown, 10/31/18) magnesium (Verified Allergy, Unknown, 08/21/18) prochlorperazine (Verified Allergy, Unknown, rash, 08/21/18) topiramate (Verified Allergy, Unknown, 08/21/18) tramadol (Verified Allergy, Unknown, 10/31/18) Uncoded Allergies: DHE (Allergy, Unknown, 10/31/18) Home Medications Butalbital/Aspirin/Caffeine 1 Each Capsule, 1 EACH PO TID PRN for Headache Prescribed by: MELANIE CLAYTON on 09/02/19 185 Cyclobenzaprine HCl 10 Mg Tablet, 10 MG PO Q8H PRN for SPASMS Prescribed by: JAXSON ANDERSON on 10/31/18 181 Promethazine HCl 50 Mg Supp.rect, 50 MG RC Q8H Prescribed by: TRISTEN LANDRY on 11/29/19 1555 Patient Home Medication List Home Medication List Reviewed: Yes Review of Systems Review of Systems Constitutional: No no symptoms reported; see HPI; No chills, No diaphoresis, No dizziness, No fever, No malaise, No weakness, No weight gain, No weight loss, No other EENTM: see HPI, no symptoms reported, ear discharge, hearing loss, ear pain, blurred vision, double vision, eye pain, tearing, vision loss, dental problems, hoarseness, mouth pain, mouth swelling, epistaxis, nose congestion, nose pain, throat pain, throat swelling, other Respiratory: No no symptoms reported, No see HPI, No cough, No dyspnea on exertion, No hemoptysis, No orthopnea, No phlegm, No short of breath, No stridor, No wheezing, No other Genitourinary: No no symptoms reported, No see HPI, No decreased output, No discharge, No dysuria, No frequency, No hematuria, No hesitancy, No incontinence, No nocturia, No pain, No other Musculoskeletal: No no symptoms reported, No see HPI, No back pain, No gout, No joint pain, No joint swelling, No muscle pain, No muscle stiffness, No muscle cramps, No muscle twitching, No muscle weakness, No neck pain, No other Psychiatric/Neurological: Denies No Symptoms Reported, Denies See HPI, Denies Anxiety, Denies Depressed, Denies Emotional Problems; Headache; Denies Numbness, Denies Paresthesia, Denies Pre-Existing Deficit, Denies Seizure, Denies Tingling, Denies Tremors, Denies Weakness, Denies Other All Other Systems Reviewed Negative Unless Noted: Yes Past Ddafues-Oqexcf-Rlyaht Hx Patient Social History 2nd Hand Smoke Exposure: No Recent Foreign Travel: No Contact w/Someone Who Travel: No Recent Hopitalizations: No Seasonal Allergies Seasonal Allergies: No Past Medical History Surgeries: Yes 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 Respiratory: No Cardiac: No Neurological: Yes 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 oz. 70.956863dz; 24.00 BMI Method:Stated General Appearance: No Apparent Distress, WD/WN Respiratory: Chest Non Tender, Lungs Clear, Normal Breath Sounds, No Accessory Muscle Use, No Respiratory Distress Cardiovascular: Regular Rate, Rhythm, No Edema, No Gallop, No JVD, No Murmur, Normal Peripheral Pulses Gastrointestinal: Normal Bowel Sounds, No Organomegaly, No Pulsatile Mass, Non Tender, Soft Neurologic/Psychiatric: Alert, Oriented x3, No Motor/Sensory Deficits, Normal Mood/Affect Skin: Normal Color, Warm/Dry Progress/Results/Core Measures Suspected Sepsis SIRS Temperature: Pulse: Respiratory Rate: Blood Pressure / Mean: Results/Orders Vital Signs/I&O Capillary Refill : Progress Note : Time: 04:50 Progress Note Patient is advised to follow up with her primary care physician discuss possible evaluation by neurology and possible medication changes for her chronic headaches. Departure Impression Primary Impression: Headache Disposition: 01 HOME, SELF-CARE Condition: Stable Departure-Patient Inst. Decision time for Depature: 04:50 Referrals: SABINA VELOZ MD (PCP/Family) Primary Care Physician Add. Discharge Instructions: Patient is advised to follow up with her primary care physician discuss possible evaluation by neurology and possible medication changes for her chronic headaches. Continue with all home medications. MELANIE CLAYTON MD Jan 20, 2020 04:51
[2020-01-20] MEDS ORDERED: KETOROLAC 60 MG/2 ML VIAL IM ONE (05:00)
[2020-01-20 05:03] VITALS: BP 130/79
== END 2020-01-20 05:03 | disposition home or self-care (01) ==
LOC: EDUNIT# 04:39 → ER FS 04:41
DX: R51 Headache (principal); Z88.2 Allergy status to sulfonamides; Z88.1 Allergy status to other antibiotic agents; Z88.5 Allergy status to narcotic agent; Z88.8 Allergy status to other drugs, medicaments and biological substances; Z86.69 Personal history of other diseases of the nervous system and sense organs
CPT/HCPCS: 99284

== ENCOUNTER 2020-02-05 20:07 | Emergency (ER) | payer MEDICARE ==
[~2020-02-05] VITALS: Ht 170 cm; Wt 66.8 kg
--- OUTSIDE RECORDS SUMMARY | 2020-02-05 20:15 | XMS REPORT | Continuity of Care Document ---
Author Organization Unknown Address Unknown Phone Unavailable Allergies Active Description Code Type Severity Reaction Onset Reported/Identified Relationship to Patient Clinical Status Yes Sulfa (Sulfonamides) 491 Unknown N/A 06/24/2016 Yes Ceftin 3716 Unknown N/A 03/24/2018 Yes Compazine 3622 Unknown N/A 03/24/2018 Yes Magnesium 784 Unknown N/A 03/24/2018 Yes Topamax 41746 Unknown N/A 03/24/2018 Yes SULFA SULFA Mild itchy 08/21/2018 Yes cefuroxime [id number] Drug Allerg y Unknown N/A 08/21/2018 Yes magnesium [id number] Drug Allergy Unknown N/A 08/21/2018 Yes No Known Drug Allergies [id number] Drug Allergy Unknown N/A 08/21/2018 Yes prochlorperazine [id number] Drug Allergy Unknown rash 08/21/2018 Yes topiramate [id number] Drug Allerg y Unknown N/A 08/21/2018 Yes DHE DHE Unknown N/A 10/31/2018 Yes haloperidol [id number] Drug Aller gy Unknown N/A 10/31/2018 Yes tramadol [id number] Drug Allergy Unknown N/A 10/31/2018 Yes Sulfa (Sulfonamide Antibiotics) [id number] Drug Allergy Mild Itching 019 Medications [...] AURA, NOT INTRACTABLE, WITHOUT STATUS MIGRAINOSUS 07/18/2018 [facility] G[facility].809 OTHER MIGRAINE, NOT INTRACTABLE, WITHOUT STATUS MIGRAI NOSUS 07/18/2018 [facility] A R51 HEADACHE 08/22/2018 EARL ARAGON [...] TO NARCOTIC AGENT STATUS 04/08/2019 JOSIE RESENDIZ, ENMO A Ot Z88. 8 ALLERGY STATUS TO [...] ALLERGY STATUS TO SULFONAMIDES STATUS 05/04/2019 SUSANA LOPZE MD Ot Z88.5 ALLERGY STATUS TO NARCOTIC [...] ABSENCE OF BOTH CERVIX AND UTER 05/30/2019 ENMO GALINDO MD A Ot F41. 9 ANXIETY [...] DO, MELANIE L Ot R51 HEADACHE 08/11/2019 [place] DO, MELANIE L Ot Z86.69 PERSONAL HISTORY [...] .2 ALLERGY STATUS TO SULFONAMIDES STATUS 08/13/2019 [place] DO, MELANIE L Ot Z88 .5 ALLERGY STATUS TO NARCOTIC AGENT STATUS 08/13/2019 [place] DO, MELANIE Mead Ot Z88 .8 ALLERGY STATUS TO OTH DRUG/MEDS/BIOL SUB 08/13/2019 [place] DO, MELANIE Mead Ot Z90.710 ACQUIRED ABSENCE [...] ABSENCE OF BOTH CERVIX AND UTER 08/25/2019 [facility], MARY BETH Carrillo Ot G43.7 09 CHRONIC MIGRAINE W/O AURA, NOT INTRACTAB 08/25/2019 [place] DO, MARY BETH Carrillo Ot R51 HEADACHE 08/25/2019 [place] DO, MARY BETH Carrillo Ot Z88.1 ALLERGY STATUS TO OTHER ANTIBIOTIC AGENT 08/25/2019 [place] DO, MARY BETH Carrillo Ot Z88.2 ALLERGY STATUS TO SULFONAMIDES STATUS 08/25/2019 [facility], MARY BETH Carrillo Ot Z88.5 ALLERGY STATUS TO NARCOTIC AGENT STATUS 08/25/2019 [place] DO, MARY BETH Carirllo Ot Z88.8 ALLERGY STATUS TO OTH DRUG/MEDS/BIOL [...] ALLERGY STATUS TO OTH DRUG/MEDS/BIOL SUB 08/27/2019 [facility], MARY BETH Carrillo Ot G43.7 09 CHRONIC MIGRAINE W/O AURA, NOT INTRACTAB 08/27/2019 [place] DO, MARY BETH Carrillo Ot R51 HEADACHE 08/27/2019 [place] DO, MARY BETH Carrillo Ot Z88.1 ALLERGY STATUS TO OTHER ANTIBIOTIC AGENT 08/27/2019 [place] DO, MARY BETH Carrillo Ot Z88.2 ALLERGY STATUS TO SULFONAMIDES STATUS 08/27/2019 [place] DO, MARY BETH Carrillo Ot Z88.5 ALLERGY STATUS TO NARCOTIC AGENT STATUS 08/27/2019 [place] DO, MARY BETH Carrillo Ot Z88.8 ALLERGY STATUS TO OTH DRUG/MEDS/BIOL SUB 09/01/2019 GUIDOVERONICA CRUZ DO Ot G43.909 MIGRAINE, UNSP, NOT INTRACTABLE, WITHOUT 09/01/2019 VERONICA LORA DO Ot R51 HEADACHE 09/01/2019 [place] , VERONICA tS Ot Z88 .1 ALLERGY STATUS TO OTHER ANTIBIOTIC AGENT 09/01/2019 [place] VERONICA ARAGON Ot Z88 .2 ALLERGY STATUS TO SULFONAMIDES STATUS 09/01/2019 [place] VERONICA ARAGON Ot Z88 .5 ALLERGY STATUS TO NARCOTIC AGENT STATUS 09/01/2019 [place] , VERONICA St Ot Z88 .8 ALLERGY [...] ULISSES H Ot R5 1 HEADACHE 10/13/2019 [facility] DO, ULISSES Yennifer Ot Z88.1 ALLERGY [...] R5 1 HEADACHE 10/19/2019 [facility], ULISSES Yennifer Ot Z88.1 ALLERGY STATUS TO OTHER ANTIBIOTIC AGENT 10/19/2019 [facility], ULISSES H Ot Z88.2 ALLERGY STATUS TO SULFONAMIDES STATUS 10/19/2019 [facility], ULISSES H Ot Z88.5 ALLERGY STATUS TO NARCOTIC AGENT STATUS 10/19/2019 [facility], ULISSES H Ot Z88.8 ALLERGY STATUS TO OTH DRUG/MEDS/BIOL SUB 11/08/2019 MELANIE CLAYTON MD Ot R5 1 HEADACHE 11/08/2019 [facility]IL[facility] RESENDIZ, MELANIE Nielson Ot 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 11/08/2019 MELANIE CLAYTON [...] 11/29/2019 [place] DO, HERON L Ot Z79.82 LONG-TERM (CURRENT) USE OF ASPIRIN 11/29/2019 [place] DO, [...] HEADACHE 11/29/2019 [place] DO, TRISTEN Ot Z79.82 LONG-TERM (CURRENT) USE OF ASPIRIN 11/29/2019 [place] DO, [...] 12/02/2019 [place] DO, HERON Mead Ot 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 12/02/2019 [place] DO, [...] [place] DO, TRISTEN Ot R51 HEADACHE 12/02/2019 [place] DO, TRISTEN Ot Z79.82 LONG-TERM (CURRENT) USE OF ASPIRIN 12/02/2019 [place] DO, TRISTEN Ot Z88.1 ALLERGY STATUS TO OTHER ANTIBIOTIC AGENT 12/02/2019 [place] DO, TRISTEN Ot Z88.2 ALLERGY STATUS TO SULFONAMIDES STATUS 12/02/2019 [place] DO, TRISTEN Ot Z88.5 ALLERGY STATUS TO NARCOTIC AGENT STATUS 12/02/2019 [place] DO, TRISTEN Ot Z88.8 ALLERGY STATUS TO [...] ALLERGY STATUS TO OTH DRUG/MEDS/BIOL SUB 01/11/2020 [place] DO, TRISTEN Ot F41.9 ANXIETY DISORDER, UNSPECIFIED 01/11/2020 [place] DO, TRISTEN Ot R51 HEADACHE 01/11/2020 [place] DO, TRISTEN Ot Z86.69 PERSONAL HISTORY OF DIS OF THE NERVOUS S 01/11/2020 [place] DO, TRISTEN Ot Z88.1 ALLERGY STATUS TO OTHER ANTIBIOTIC AGENT 01/11/2020 [place] DO, TRISTEN Ot Z88.2 ALLERGY STATUS TO SULFONAMIDES STATUS 01/11/2020 [place] DO, TRISTEN Ot Z88.5 ALLERGY STATUS TO NARCOTIC AGENT STATUS 01/11/2020 [place] DO, TRISTEN Ot Z88.8 ALLERGY STATUS TO OTH DRUG/MEDS/BIOL SUB 01/14/2020 [place] DO, TRISTEN Ot F41.9 ANXIETY DISORDER, UNSPECIFIED 01/14/2020 [place] DO, TRISTEN Ot R51 HEADACHE 01/14/2020 [place] DO, TRISTEN Ot Z86.69 PERSONAL HISTORY OF DIS OF THE NERVOUS S 01/14/2020 [place] DO, TRISTEN Ot Z88.1 ALLERGY STATUS TO OTHER ANTIBIOTIC AGENT 01/14/2020 [place] DO, TRISTEN Ot Z88.2 ALLERGY STATUS TO SULFONAMIDES STATUS 01/14/2020 TRISTEN LANDRY DO Ot Z88.5 ALLERGY STATUS TO NARCOTIC AGENT STATUS 01/14/2020 TRISTEN LANDRY DO Ot Z88.8 ALLERGY STATUS TO OTH DRUG/MEDS/BIOL SUB 01/19/2020 SABINA DOUGHERTY MD Ot G43.909 MIGRAINE, UNSP, NOT INTRACTABLE, WITHOUT 01/19/2020 SABINA DOUGHERTY MD Ot R51 HEADACHE 01/19/2020 SABINA DOUGHERTY MD, Ot Z88.1 ALLERGY STATUS TO OTHER ANTIBIOTIC AGENT 01/19/2020 SABINA DOUGHERTY MD Ot Z88.2 ALLERGY STATUS TO SULFONAMIDES STATUS 01/19/2020 SABINA DOUGHERTY MD, Ot Z88.5 ALLERGY STATUS TO NARCOTIC AGENT STATUS 01/19/2020 SABINA DOUGHERTY MD, Ot Z88.8 ALLERGY STATUS TO OTH DRUG/MEDS/BIOL SUB 01/22/2020 MELANIE CLAYTON MD Ot R5 1 HEADACHE 01/22/2020 MELANIE CLAYTON MD Ot Z86.69 PERSONAL HISTORY OF DIS OF THE NERVOUS S 01/22/2020 MELANIE CLAYTON MD Ot Z88.1 ALLERGY STATUS TO OTHER ANTIBIOTIC AGENT 01/22/2020 MELANIE CLAYTON MD Ot Z88.2 ALLERGY STATUS TO SULFONAMIDES STATUS 01/22/2020 MELANIE CLAYTON MD Ot Z88.5 ALLERGY STATUS TO NARCOTIC AGENT STATUS 01/22/2020 MELANIE CLAYTON MD Ot Z88.8 ALLERGY STATUS TO OTH DRUG/MEDS/BIOL SUB 01/22/2020 SABINA DOUGHERTY MD Ot G43.909 MIGRAINE, UNSP, NOT INTRACTABLE, WITHOUT 01/22/2020 SABINA DOUGHERTY MD Ot R51 HEADACHE 01/22/2020 SABINA DOUGHERTY MD Ot Z88.1 ALLERGY STATUS TO OTHER ANTIBIOTIC AGENT 01/22/2020 SABINA DOUGHERTY MD, Ot Z88.2 ALLERGY STATUS TO SULFONAMIDES STATUS 01/22/2020 SABINA DOUGHERTY MD Ot Z88.5 ALLERGY STATUS TO NARCOTIC AGENT STATUS 01/22/2020 SABINA DOUGHERTY MD Ot Z88.8 ALLERGY STATUS [...] Status Pt. Type Provider Facility Loc./Unit Complaint [id number] 12/02/2019 14:00:00 12/02/2019 23:59: 59 [facility] Outpatient WENCESLAO [facility] [id number] 04/16/2019 07:30:00 Document Registration [id number] 01/29/2019 18:20:00 Document Registration [id number] 12/12/2018 14:15:00 Document Registration [id number] 11/07/2018 17:20:00 Document Registration [id number] 10/25/2018 16:10:00 Document Registration [id number] 10/12/2018 16:20:00 Document Registration [id number] 06/23/2018 04:07:00 ACT Unknown TRUNG WIGGINS [facility] NSER HEADACHE [id number] 06/22/2018 22:07:00 ACT Unknown TRUNG WIGGINS [facility] NSER HEADACHE [id number] 03/24/2018 19:16:00 [facility] [id number] 01/09/2017 18:47:00 ACT Unknown REDD GASTELUM [facility] [id number] 01/07/2017 21:26:00 ACT Unknown KEIKO [place] [facility] NSER HEADACHE [id number] 06/24/2016 20:12:00 ACT [facility] NSER HEADACHE [id number] 06/26/2015 20:27:00 ACT Unknown JC LLANES [id number] 01/20/2020 04:41:00 05:03:00 DIS Outpatient MATILDE RESENDIZ, MELANIE Nielson [facility] ER FS MIGRAINE [id number] 01/16/2020 21:58:00 22:55:00 DIS Outpatient FARHAT RESENDIZ, SABINA [facility] ER FS MIGRIANE [id number] 01/11/2020 01:52:00 02:32:00 DIS Emergency TRISTEN LANDRY DO [facility] ER FS HEADACHE [id number] 12/12/2019 05:44:00 06:22:00 DIS Emergency ROVENSTINE HERON ARAGON [facility] ER FS MIGRAINE [id number] 11/29/2019 15:01:00 020 16:00:00 DIS Emergency TRISTEN LANDRY DO [facility] ER FS HEADACHE;VOMITING [id number] 11/29/2019 01:20:00 020 03:03:00 DIS Emergency ROVENSTINE HERON ARAGON [facility] ER FS HEADACHE [id number] 11/08/2019 14:24:00 020 15:03:00 DIS Emergency MELANIE CLAYTON MD [facility] ER FS HEADACHE [id number] 10/10/2019 05:42:00 020 06:38:00 DIS Emergency CINDYULISSES BLACKBURN DO [facility] ER FS MIGRAINE [id number] 09/24/2019 18:49:00 19:29:00 DIS Emergency VAISHALI DO, CANDI B [facility] ER FS MIGRAINE,VOMITING [id number] 09/02/2019 18:34:00 19:21:00 DIS Emergency MELANIE CLAYTON MD [facility] ER FS MIGRAINE,NAUSEA,VOMITIN G [id number] 08/27/2019 01:02:00 01:24:00 DIS Emergency GUIDO DO, VERONICA M [facility] ER FS MIGRAINE [id number] 08/25/2019 03:50:00 05:08:00 DIS Emergency ASH DO, MARY BETH Carrillo [facility] ER FS HEADACHE [id number] 08/12/2019 03:28:00 03:53:00 DIS Outpatient JOHN RESENDIZ, SUSANA Ramachandran [facility] ER FS MIGRAINE [id number] 08/10/2019 23:52:00 00:24:00 DIS Emergency MELANIE BERNABE DO [facility] ER FS HEADACHE [id number] 08/03/2019 19:30:00 20:55:00 DIS Emergency SUSANA LOPEZ MD [facility] ER FS HEADACHE [id number] 06/25/2019 00:00:00 00:47:00 DIS Emergency NEMO GALINDO MD [facility] ER FS MIGRAINE [id number] 06/24/2019 18:43:00 19:38:00 DIS Emergency NEMO GALINDO MD [facility] ER FS MIGRAINE, N/V [id number] 06/15/2019 00:15:00 00:48:00 DIS Emergency HENOK BELTRAN MD [facility] ER FS HEADACHE/NAUSEA/VOMITTI NG [id number] 05/30/2019 17:25:00 18:36:00 DIS Emergency JOSIE RESENDIZ, NEMO Gottlieb [facility] ER FS MIGRAINE [id number] 05/27/2019 18:38:00 19:28:00 DIS Emergency HENOK BELTRAN MD [facility] ER FS MIGRAINE SYMPTOMS [id number] 05/20/2019 18:38:00 19:20:00 DIS Emergency CANDI TOM DO [facility] ER FS HEADACHE [id number] 05/16/2019 18:57:00 19:30:00 DIS Emergency ROVENSTINE HERON ARAGON [facility] FS MIGRAINE [id number] 05/04/2019 22:14:00 23:07:00 DIS Emergency SUSANA LOPEZ MD [facility] ER FS MIGRAINE [id number] 04/21/2019 01:30:00 01:54:00 DIS Emergency JOSIE RESENDIZ, NEMO Gottlieb [facility] ER FS HEADACHE,COUGH [id number] 04/12/2019 03:14:00 03:52:00 DIS Emergency SUSANA LOPEZ MD [facility] ER FS MIGRAINE SYMPTOMS [id number] 04/08/2019 00:35:00 01:59:00 DIS Emergency NEMO GALINDO MD [facility] ER FS MIGRAINE [id number] 03/19/2019 01:52:00 03:48:00 DIS Outpatient SUSANA LOPEZ MD [facility] ER FS SEVERE MIGRAINE [id number] 03/14/2019 16:52:00 17:38:00 DIS Emergency ROVENSTHERON SILVERMAN DO [facility] ER FS HEADACHE [id number] 01/30/2019 11:34:00 13:44:00 DIS Emergency SUSANA LOPEZ MD [facility] ER FS HEADACHE; VOMITING [id number] 01/01/2019 10:21:00 11:30:00 DIS Emergency TRISTEN LANDRY DO [facility] ER FS HEADACHE [id number] 12/23/2018 18:47:00 20:51:00 DIS Emergency GUIDOVERONICA CRUZ DO Al[place] Rosa [facility] ER FS MIGRAINE [id number] 2018 15:36:00 16:30:00 DIS Emergency KATIA LIRIANO DO [facility] ER FS MIGRAINE;NAUSEA;VOMITIN G [id number] 10/31/2018 16:57:00 18:30:00 DIS Emergency JUSTIN RESENDIZ, JAXSON Mejia [facility] ER FS HEADACHE [id number] 10/24/2018 15:25:00 23:59:59 [facility] Outpatient RAINA RESENDIZ, WENCESLAO Medina [facility] RAD FS M54.41 [id number] 08/22/2018 09:55:00 12:18:00 DIS Emergency FARHAT RESENDIZ, SABINA gottlieb [facility] ER FS HEADACHE [id number] 08/21/2018 21:49:00 00:46:00 DIS Emergency JOEL ELLIOTT DO [facility] ER FS MIGRAINE, NAUSEA, SENSI TIVE TO LIGHT AND SMELLS [id number] 07/01/2016 14:22:44 ACT Document Registration
[2020-02-05] MEDS ORDERED: diphenhydrAMINE 50 MG/ML INJ (BENADRYL) IM STA (20:38)
[2020-02-05] MEDS ORDERED: PROMETHAZINE INJ 25 MG/ML (PHENERGAN) AMP IM STA (20:38)
[2020-02-05] MEDS ORDERED: KETOROLAC 60 MG/2 ML VIAL IM STA (20:38)
--- NOTE | 2020-02-05 20:41 | ED Headache ---
General Chief Complaint: Head/Cervical Problems Stated Complaint: MIGRIANE Nursing Triage Note: Pt complaining of a migraine Nursing Sepsis Screen: No Definite Risk Source: patient Exam Limitations: no limitations History of Present Illness Date Seen by Provider: Feb 05, 2020 Time Seen by Provider: 20:21 Initial Comments 39-year-old female presenting with complaints of right-sided headache. She states that she has had the headache all day. He feels similar to her prior migraines. She has tried pressure points as well as essential else without improvement. She has had 2 episodes of vomiting at home. She previously had electrolyte problems so she did not want to have continued vomiting and came into the ER. She has photosensitivity as well. She had no fever or chills. She has had no cough or congestion. Allergies and Home Medications Allergies Coded Allergies: Sulfa (Sulfonamide Antibiotics) (Verified Allergy, Mild, Itching, 03/14/19) cefuroxime (Verified Allergy, Unknown, 08/21/18) haloperidol (Verified Allergy, Unknown, 10/31/18) magnesium (Verified Allergy, Unknown, 08/21/18) prochlorperazine (Verified Allergy, Unknown, rash, 08/21/18) topiramate (Verified Allergy, Unknown, 08/21/18) tramadol (Verified Allergy, Unknown, 10/31/18) Uncoded Allergies: DHE (Allergy, Unknown, 10/31/18) Home Medications Butalbital/Aspirin/Caffeine 1 Each Capsule, 1 EACH PO TID PRN for Headache Prescribed by: MELANIE CLAYTON on 09/02/19 1856 Cyclobenzaprine HCl 10 Mg Tablet, 10 MG PO Q8H PRN for SPASMS Prescribed by: JAXSON ANDERSON on 10/31/18 181 Promethazine HCl 50 Mg Supp.rect, 50 MG RC Q8H Prescribed by: TRISTEN LANDRY on 11/29/19 1555 Patient Home Medication List Home Medication List Reviewed: Yes Review of Systems Review of Systems Constitutional: No chills, No fever Eyes: See HPI Ears, Nose, Mouth, Throat: see HPI Respiratory: see HPI Cardiovascular: no symptoms reported Gastrointestinal: nausea, vomiting Genitourinary: no symptoms reported Musculoskeletal: neck pain (right side) Skin: no symptoms reported Psychiatric/Neurological: Anxiety, Headache Past Bhgxmny-Khxyxv-Eohddv Hx Past Med/Social Hx: Reviewed Nursing Past Med/Soc Hx Patient Social History Alcohol Use: Denies Use Recreational Drug Use: No Smoking Status: Never a Smoker 2nd Hand Smoke Exposure: No Recent Foreign Travel: No Contact w/Someone Who Travel: No Recent Infectious Disease Expo: No Recent Hopitalizations: No Physical Abuse: No Sexual Abuse: No Seasonal Allergies Seasonal Allergies: No Past Medical History Surgeries: Yes 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 Respiratory: No Cardiac: No Neurological: Yes 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 oz. 70.014943us; 23.00 BMI Method:Stated General Appearance: WD/WN, mild distress (anxious) HEENT: PERRL/EOMI, normal ENT inspection, pharynx normal Neck: full range of motion, supple Cardiovascular: normal peripheral pulses, regular rate, rhythm Respiratory: chest non-tender, lungs clear, normal breath sounds, no respiratory distress, no accessory muscle use Gastrointestinal: normal bowel sounds, non tender, soft Extremities: normal range of motion, non-tender, normal inspection, normal capillary refill Psychiatric: alert, oriented x 3 Crainal Nerves: normal hearing, normal speech, PERRL Motor/Sensory: no motor deficit, no sensory deficit Skin: normal color, warm/dry Progress/Results/Core Measures Results/Orders My Orders Orders - SUSANA LOPEZ MD Ketorolac Injection (Toradol Injection) (02/05/20 20:38) Diphenhydramine Injection (Benadryl Inje (02/05/20 20:38) Promethazine Injection (Phenergan Injec (02/05/20 20:38) Vital Signs/I&O 02/05/20 02/05/20 20:10 20:57 Temp 36.7 36.7 Pulse 107 107 Resp 16 16 B/P (MAP) 129/75 (93) 129/75 (93) Pulse Ox 99 99 O2 Delivery Room Air Room Air Blood Pressure Mean: 93 Progress Progress Note : Progress Note since this feels like her typical migraine Will treat with Toradol 60 mg, Phenergan 50 mg, Benadryl 50 mg all IM. Encouraged to rest at home in a dark room. Follow-up with her primary for continued concerns. Departure Impression Primary Impression: Migraine Qualified Codes: G43.009 - Migraine without aura, not intractable, without status migrainosus Disposition: HOME, SELF-CARE Condition: Stable Departure-Patient Inst. Decision time for Depature: 20:40 Referrals: SABINA VELOZ MD (PCP/Family) Primary Care Physician Patient Instructions: Migraine Headache (DC) Add. Discharge Instructions: Rest in a cool dark room. Continue on your regular medicines Follow up with Dr. Veloz for continued concerns All discharge instructions reviewed with patient and/or family. Voiced understanding. SUSANA LOPEZ MD Feb 05, 2020 20:41
[2020-02-05 20:57] VITALS: BP 129/75
== END 2020-02-05 20:57 | disposition home or self-care (01) ==
LOC: EDUNIT# 20:07 → ER FS 20:08
DX: G43.909 Migraine, unspecified, not intractable, without status migrainosus (principal); F41.9 Anxiety disorder, unspecified; Z88.2 Allergy status to sulfonamides; Z88.1 Allergy status to other antibiotic agents; Z88.5 Allergy status to narcotic agent; Z88.8 Allergy status to other drugs, medicaments and biological substances
CPT/HCPCS: 99284

== ENCOUNTER 2020-02-06 00:39 | Emergency (ER) | payer MEDICARE ==
[~2020-02-06] VITALS: Ht 170.1 cm; Wt 66.0 kg
[2020-02-06] MEDS ORDERED: PROMETHAZINE INJ 25 MG/ML (PHENERGAN) AMP IM STA (00:43)
[2020-02-06] MEDS ORDERED: KETOROLAC 30 MG/ML VIAL IM STA (00:43)
[2020-02-06] MEDS ORDERED: diphenhydrAMINE 50 MG/ML INJ (BENADRYL) IM STA (00:43)
--- OUTSIDE RECORDS SUMMARY | 2020-02-06 00:46 | XMS REPORT | Continuity of Care Document ---
Author Organization Unknown Address Unknown Phone Unavailable Allergies Active Description Code Type Severity Reaction Onset Reported/Identified Relationship to Patient Clinical Status Yes Sulfa (Sulfonamides) 491 Unknown N/A 06/24/2016 Yes Ceftin 3716 Unknown N/A 03/24/2018 Yes Compazine 3622 Unknown N/A 03/24/2018 Yes Magnesium 784 Unknown N/A 03/24/2018 Yes Topamax 19713 Unknown N/A 03/24/2018 Yes SULFA SULFA Mild itchy 08/21/2018 Yes cefuroxime [id number] Drug Allerg y Unknown N/A 08/21/2018 Yes magnesium [id number] Drug Allergy Unknown N/A 08/21/2018 Yes No Known Drug Allergies [id number] Drug Allergy Unknown N/A 08/21/2018 Yes prochlorperazine [id number] Drug Allergy Unknown rash 08/21/2018 Yes topiramate [id number] Drug Allerg y Unknown N/A 08/21/2018 Yes DHE DHE Unknown N/A 10/31/2018 Yes haloperidol [id number] Drug Aller gy Unknown N/A 10/31/2018 Yes tramadol [id number] Drug Allergy Unknown N/A 10/31/2018 Yes Sulfa (Sulfonamide Antibiotics) [id number] Drug Allergy Mild Itching 019 Medications [...] AURA, NOT INTRACTABLE, WITHOUT STATUS MIGRAINOSUS 07/18/2018 [facility] P G43.809 OTHER MIGRAINE, NOT INTRACTABLE, WITHOUT STATUS MIGRAI NOSUS 07/18/2018 [facility] A R51 HEADACHE 08/22/2018 EARL ARAGON JOEL [...] DIS OF THE NERVOUS S 04/17/2019 NEMO GALNIDO MD A Ot Z88. 1 ALLERGY STATUS [...] Ot F41.9 ANXIETY DISORDER, UNSPECIFIED 06/17/2019 HENOK BELRTAN MD Ot G43.909 MIGRAINE, UNSP, NOT INTRACTABLE, [...] ALLERGY STATUS TO OTH DRUG/MEDS/BIOL SUB 06/17/2019 HNEOK BELTRAN MD Ot Z90.710 ACQUIRED ABSENCE OF [...] DO, MELANIE L Ot R51 HEADACHE 08/11/2019 [place] S[place] DO, MELANIE L Ot Z86.69 PERSONAL HISTORY [...] .2 ALLERGY STATUS TO SULFONAMIDES STATUS 08/13/2019 [place] SOTO DO, MELANIE L Ot Z88 .5 ALLERGY STATUS TO NARCOTIC AGENT STATUS 08/13/2019 [place] S[place] DO, MELANIE Mead Ot Z88 .8 ALLERGY STATUS TO OTH DRUG/MEDS/BIOL SUB 08/13/2019 [place] S[place] DO, MELANIE Mead Ot Z90.710 ACQUIRED ABSENCE [...] ABSENCE OF BOTH CERVIX AND UTER 08/25/2019 [facility], MARY BETH Carrillo Ot G43.7 09 CHRONIC MIGRAINE W/O AURA, NOT INTRACTAB 08/25/2019 [place] DO, MARY BETH Carrillo Ot R51 HEADACHE 08/25/2019 [place] DO, MARY BETH Carrillo Ot Z88.1 ALLERGY STATUS TO OTHER ANTIBIOTIC AGENT 08/25/2019 [place] DO, MARY BETH Carrillo Ot Z88.2 ALLERGY STATUS TO SULFONAMIDES STATUS 08/25/2019 [facility], MARY BETH Carrillo Ot Z88.5 ALLERGY STATUS TO NARCOTIC AGENT STATUS 08/25/2019 [place] DO, MARY BETH Carrillo Ot Z88.8 ALLERGY [...] ALLERGY STATUS TO OTH DRUG/MEDS/BIOL SUB 08/27/2019 [facility], MARY BETH Carrillo Ot G43.7 09 CHRONIC MIGRAINE W/O AURA, NOT INTRACTAB 08/27/2019 [place] DO, MARY BETH Carrillo Ot R51 HEADACHE 08/27/2019 [place] DO, MARY BETH Carrillo Ot Z88.1 ALLERGY STATUS TO OTHER ANTIBIOTIC AGENT 08/27/2019 [place] DO, MARY BETH Carrillo Ot Z88.2 ALLERGY STATUS TO SULFONAMIDES STATUS 08/27/2019 [place] DO, MARY BETH Carrillo Ot Z88.5 ALLERGY STATUS TO NARCOTIC AGENT STATUS 08/27/2019 [place] DO, MARY BETH Carrillo Ot Z88.8 ALLERGY STATUS TO OTH DRUG/MEDS/BIOL SUB 09/01/2019 GUIDOVERONICA CRUZ DO Ot G43.909 MIGRAINE, UNSP, NOT INTRACTABLE, WITHOUT 09/01/2019 VERONICA LORA DO Ot R51 HEADACHE 09/01/2019 [place] , VERONICA St Ot Z88 .1 ALLERGY STATUS TO OTHER ANTIBIOTIC AGENT 09/01/2019 [place] VERONICA ARAGON Ot Z88 .2 ALLERGY STATUS TO SULFONAMIDES STATUS 09/01/2019 [place] VERONICA ARAGON Ot Z88 .5 ALLERGY STATUS TO NARCOTIC AGENT STATUS 09/01/2019 [place] , VERONICA St Ot Z88 .8 ALLERGY [...] ULISSES H Ot R5 1 HEADACHE 10/13/2019 [facility] DO, ULISSES Yennifer Ot Z88.1 ALLERGY STATUS [...] ULISSES Yennifer Ot R5 1 HEADACHE 10/19/2019 [facility], ULISSES Yennifer Ot Z88.1 ALLERGY STATUS TO OTHER ANTIBIOTIC AGENT 10/19/2019 [facility], ULISSES H Ot Z88.2 ALLERGY STATUS TO SULFONAMIDES STATUS 10/19/2019 [facility], ULISSES H Ot Z88.5 ALLERGY STATUS TO NARCOTIC AGENT STATUS 10/19/2019 [facility], ULISSES H Ot Z88.8 ALLERGY STATUS TO OTH DRUG/MEDS/BIOL SUB 11/08/2019 MELANIE CLAYTON MD Ot R5 1 HEADACHE 11/08/2019 [facility] RESENDIZ, MELANIE Nielson Ot 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 11/08/2019 MELANIE CLAYTON [...] 11/29/2019 [place] DO, HERON L Ot Z79.82 RETIREMENT (CURRENT) USE OF ASPIRIN 11/29/2019 ROVENSTINE DO, [...] HEADACHE 11/29/2019 [place] DO, TRISTEN Ot Z79.82 RETIREMENT (CURRENT) USE OF ASPIRIN 11/29/2019 LANDRY DO, [...] 12/02/2019 [place]OV[place]ST[place] DO, HERON Mead Ot 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 12/02/2019 ROVENSTINE DO, [...] LANDRY DO, TRISTEN Ot R51 HEADACHE 12/02/2019 [place] DO, TRISTEN Ot Z79.82 RETIREMENT (CURRENT) USE OF ASPIRIN 12/02/2019 [place] DO, TRISTEN Ot Z88.1 ALLERGY STATUS TO OTHER ANTIBIOTIC AGENT 12/02/2019 [place] DO, TRISTEN Ot Z88.2 ALLERGY STATUS TO SULFONAMIDES STATUS 12/02/2019 [place] DO, TRISTEN Ot Z88.5 ALLERGY STATUS TO NARCOTIC AGENT STATUS 12/02/2019 [place] DO, TRISTEN Ot Z88.8 ALLERGY STATUS TO [...] ALLERGY STATUS TO OTH DRUG/MEDS/BIOL SUB 01/11/2020 [place] DO, TRISTEN Ot F41.9 ANXIETY DISORDER, UNSPECIFIED 01/11/2020 [place] DO, TRISTEN Ot R51 HEADACHE 01/11/2020 [place] DO, TRISTEN Ot Z86.69 PERSONAL HISTORY OF DIS OF THE NERVOUS S 01/11/2020 [place] DO, TRISTEN Ot Z88.1 ALLERGY STATUS TO OTHER ANTIBIOTIC AGENT 01/11/2020 [place] DO, TRISTEN Ot Z88.2 ALLERGY STATUS TO SULFONAMIDES STATUS 01/11/2020 [place] DO, TRISTEN Ot Z88.5 ALLERGY STATUS TO NARCOTIC AGENT STATUS 01/11/2020 [place] DO, TRISTEN Ot Z88.8 ALLERGY STATUS TO OTH DRUG/MEDS/BIOL SUB 01/14/2020 [place] DO, TRISTEN Ot F41.9 ANXIETY DISORDER, UNSPECIFIED 01/14/2020 [place] DO, TRISTEN Ot R51 HEADACHE 01/14/2020 [place] DO, TRISTEN Ot Z86.69 PERSONAL HISTORY OF DIS OF THE NERVOUS S 01/14/2020 [place] DO, TRISTEN Ot Z88.1 ALLERGY STATUS TO [...] Status Pt. Type Provider Facility Loc./Unit Complaint [id number] 12/02/2019 14:00:00 12/02/2019 23:59: 59 [facility] Outpatient WENCESLAO [facility] [id number] 04/16/2019 07:30:00 Document Registration [id number] 01/29/2019 18:20:00 Document Registration [id number] 12/12/2018 14:15:00 Document Registration [id number] 11/07/2018 17:20:00 Document Registration [id number] 10/25/2018 16:10:00 Document Registration [id number] 10/12/2018 16:20:00 Document Registration [id number] 06/23/2018 04:07:00 ACT Unknown TRUNG WIGGINS [facility] NSER HEADACHE [id number] 06/22/2018 22:07:00 ACT Unknown TRUNG WIGGINS [facility] NSER HEADACHE [id number] 03/24/2018 19:16:00 [facility] [id number] 01/09/2017 18:47:00 ACT Unknown REDD GASTELUM [facility] NSER HEADACHE [id number] 01/07/2017 21:26:00 ACT Unknown KEIKO [place] [facility] NSER HEADACHE [id number] 06/24/2016 20:12:00 ACT [facility] [id number] 06/26/2015 20:27:00 ACT Unknown JC LLANES [id number] 01/20/2020 04:41:00 05:03:00 DIS Outpatient MATILDE RESENDIZ, MELANIE Nielson [facility] ER FS MIGRAINE [id number] 01/16/2020 21:58:00 22:55:00 DIS Outpatient FARHAT RESENDIZ, SABINA Cornoado [facility] ER FS MIGRIANE [id number] 01/11/2020 01:52:00 02:32:00 DIS Emergency TRISTEN LANDRY DO [facility] ER FS HEADACHE [id number] 12/12/2019 05:44:00 06:22:00 DIS Emergency ROVENSTINE HERON ARAGON [facility] ER FS MIGRAINE [id number] 11/29/2019 15:01:00 020 16:00:00 DIS Emergency TRISTEN LANDRY DO [facility] ER FS HEADACHE;VOMITING [id number] 11/29/2019 01:20:00 020 03:03:00 DIS Emergency ROVENSTINE HERON ARAGON [facility] ER FS HEADACHE [id number] 11/08/2019 14:24:00 020 15:03:00 DIS Emergency MELANIE CLAYTON MD [facility] ER FS HEADACHE [id number] 10/10/2019 05:42:00 020 06:38:00 DIS Emergency CINDYULISSES BLACKBURN DO [facility] ER FS MIGRAINE [id number] 09/24/2019 18:49:00 19:29:00 DIS Emergency VAISHALI DO, CANDI B [facility] ER FS MIGRAINE,VOMITING [id number] 09/02/2019 18:34:00 19:21:00 DIS Emergency MELANIE CLAYTON MD [facility] ER FS MIGRAINE,NAUSEA,VOMITIN G [id number] 08/27/2019 01:02:00 01:24:00 DIS Emergency GUIDO DO, VERONICA M [facility] ER FS MIGRAINE [id number] 08/25/2019 03:50:00 05:08:00 DIS Emergency ASH DO, MARY BETH Carrillo [facility] ER FS HEADACHE [id number] 08/12/2019 03:28:00 03:53:00 DIS Outpatient JOHN RESENDIZ, SUSANA Ramachandran [facility] ER FS MIGRAINE [id number] 08/10/2019 23:52:00 00:24:00 DIS Emergency MELANIE BERNABE DO [facility] ER FS HEADACHE [id number] 08/03/2019 19:30:00 20:55:00 DIS Emergency SUSANA LOPEZ MD [facility] ER FS HEADACHE [id number] 06/25/2019 00:00:00 00:47:00 DIS Emergency NEMO GALINDO MD [facility] ER FS MIGRAINE [id number] 06/24/2019 18:43:00 19:38:00 DIS Emergency NEMO GALINDO MD [facility] ER FS MIGRAINE, N/V [id number] 06/15/2019 00:15:00 00:48:00 DIS Emergency HENOK BELTRAN MD [facility] ER FS HEADACHE/NAUSEA/VOMITTI NG [id number] 05/30/2019 17:25:00 18:36:00 DIS Emergency JOSIE RESENDIZ, NEMO Gottlieb [facility] ER FS MIGRAINE [id number] 05/27/2019 18:38:00 19:28:00 DIS Emergency HENOK BELTRAN MD [facility] ER FS MIGRAINE SYMPTOMS [id number] 05/20/2019 18:38:00 19:20:00 DIS Emergency CANDI TOM DO [facility] ER FS HEADACHE [id number] 05/16/2019 18:57:00 19:30:00 DIS Emergency ROVENSTINE HERON ARAGON [facility] FS MIGRAINE [id number] 05/04/2019 22:14:00 23:07:00 DIS Emergency SUSANA LOPEZ MD [facility] ER FS MIGRAINE [id number] 04/21/2019 01:30:00 01:54:00 DIS Emergency JOSIE RESENDIZ, NEMO Gottlieb [facility] ER FS HEADACHE,COUGH [id number] 04/12/2019 03:14:00 03:52:00 DIS Emergency SUSANA LOPEZ MD [facility] ER FS MIGRAINE SYMPTOMS [id number] 04/08/2019 00:35:00 01:59:00 DIS Emergency NEMO GALINDO MD [facility] ER FS MIGRAINE [id number] 03/19/2019 01:52:00 03:48:00 DIS Outpatient SUSANA LOPEZ MD [facility] ER FS SEVERE MIGRAINE [id number] 03/14/2019 16:52:00 17:38:00 DIS Emergency ROVENSTHERON ISLVERMAN DO [facility] ER FS HEADACHE [id number] 01/30/2019 11:34:00 13:44:00 DIS Emergency SUSANA LOPEZ MD [facility] ER FS HEADACHE; VOMITING [id number] 01/01/2019 10:21:00 11:30:00 DIS Emergency TRISTEN LANDRY DO [facility] ER FS HEADACHE [id number] 12/23/2018 18:47:00 20:51:00 DIS Emergency GUIDOVERONICA CRUZ DO Alma Rosa [facility] ER FS MIGRAINE [id number] 2018 15:36:00 16:30:00 DIS Emergency KATIA LIRIANO DO [facility] ER FS MIGRAINE;NAUSEA;VOMITIN G [id number] 10/31/2018 16:57:00 18:30:00 DIS Emergency JUSTIN RESENDIZ, JAXSON Mejia [facility] ER FS HEADACHE [id number] 10/24/2018 15:25:00 23:59:59 [facility] Outpatient RAINA RESENDIZ, WENCESLAO Medina [facility] RAD FS M54.41 [id number] 08/22/2018 09:55:00 12:18:00 DIS Emergency FARHAT RESENDIZ, SABINA gottlieb [facility] ER FS HEADACHE [id number] 08/21/2018 21:49:00 00:46:00 DIS Emergency JOEL ELLIOTT DO [facility] ER FS MIGRAINE, NAUSEA, SENSI TIVE TO LIGHT AND SMELLS [id number] 07/01/2016 14:22:44 ACT Document Registration
[2020-02-06 00:50] VITALS: BP 126/70
--- NOTE | 2020-02-06 00:58 | ED Headache ---
General Stated Complaint: MIGRAINE Source: patient History of Present Illness Date Seen by Provider: Feb 06, 2020 Time Seen by Provider: 00:39 Initial Comments 39 yo female presents again to the ED with complaints of headache on right side of head with n/v and photophobia. She states it is similar to prior headaches. She was seen by myself a little over 4 hours ago in the ED for the same complaint and was given Toradol 60 mg, Benadryl 50 mg and Phenergan 50 mg IM for her symptoms. She states after getting home she had repeated episodes of vomiting and was unable to rest. She has not had a fever. Other than the n/v she has no new symptoms. Allergies and Home Medications Allergies Coded Allergies: Sulfa (Sulfonamide Antibiotics) (Verified Allergy, Mild, Itching, 03/14/19) cefuroxime (Verified Allergy, Unknown, 08/21/18) haloperidol (Verified Allergy, Unknown, 10/31/18) magnesium (Verified Allergy, Unknown, 08/21/18) prochlorperazine (Verified Allergy, Unknown, rash, 08/21/18) topiramate (Verified Allergy, Unknown, 08/21/18) tramadol (Verified Allergy, Unknown, 10/31/18) Uncoded Allergies: DHE (Allergy, Unknown, 10/31/18) Home Medications Butalbital/Aspirin/Caffeine 1 Each Capsule, 1 EACH PO TID PRN for Headache Prescribed by: MELANIE CLAYTON on 09/02/19 185 Cyclobenzaprine HCl 10 Mg Tablet, 10 MG PO Q8H PRN for SPASMS Prescribed by: JAXSON ANDERSON on 10/31/18 181 Promethazine HCl 50 Mg Supp.rect, 50 MG RC Q8H Prescribed by: TRISTEN LANDRY on 11/29/19 1555 Patient Home Medication List Home Medication List Reviewed: Yes Review of Systems Review of Systems Constitutional: No chills, No fever Eyes: See HPI Ears, Nose, Mouth, Throat: see HPI Respiratory: see HPI Cardiovascular: see HPI Gastrointestinal: see HPI Genitourinary: see HPI Musculoskeletal: see HPI Skin: see HPI Psychiatric/Neurological: See HPI Past Svswmuq-Rvvxqn-Henyrr Hx Past Med/Social Hx: Reviewed Nursing Past Med/Soc Hx Patient Social History 2nd Hand Smoke Exposure: No Recent Foreign Travel: No Contact w/Someone Who Travel: No Recent Hopitalizations: No Seasonal Allergies Seasonal Allergies: No Past Medical History Surgeries: Yes 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 Respiratory: No Cardiac: No Neurological: Yes 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 oz. 70.869303aa; 23.00 BMI Method:Stated General Appearance: WD/WN, mild distress HEENT: photophobia (wearing sunglasses) Psychiatric: alert, oriented x 3, other (anxious) Crainal Nerves: normal hearing, normal speech Coordination/Gait: normal gait Motor/Sensory: no motor deficit, no sensory deficit Skin: normal color, warm/dry Progress/Results/Core Measures Results/Orders My Orders Orders - SUSANA LOPEZ MD Ketorolac Injection (Toradol Injection) (02/06/20 00:43) Diphenhydramine Injection (Benadryl Inje (02/06/20 00:43) Promethazine Injection (Phenergan Injec (02/06/20 00:43) Vital Signs/I&O 02/06/20 00:50 Temp 37.0 Pulse 71 Resp 18 B/P (MAP) 126/70 (88) Pulse Ox 99 O2 Delivery Room Air Progress Progress Note : Progress Note will try repeating Toradol at 30 mg since it has only been 4 hours, Phenergan at 25 mg again since only 4 hours and Benadryl 50 mg all IM. Encourage rest in cool dark room and follow up with clinic and continue home meds. Departure Impression Primary Impression: Migraine Qualified Codes: G43.009 - Migraine without aura, not intractable, without status migrainosus Disposition: 01 HOME, SELF-CARE Condition: Stable Departure-Patient Inst. Decision time for Depature: 00:57 Referrals: SABINA VELOZ MD (PCP/Family) Primary Care Physician Patient Instructions: Migraines (DC) Add. Discharge Instructions: Rest in a cool dark room and follow up with clinic for continued concerns Continue on your regular medicines SUSANA LOPEZ MD Feb 06, 2020 00:58
== END 2020-02-06 01:03 | disposition home or self-care (01) ==
LOC: EDUNIT# 00:39 → ER FS 00:41
DX: G43.909 Migraine, unspecified, not intractable, without status migrainosus (principal); G44.209 Tension-type headache, unspecified, not intractable; F41.9 Anxiety disorder, unspecified; Z88.2 Allergy status to sulfonamides; Z88.1 Allergy status to other antibiotic agents; Z88.8 Allergy status to other drugs, medicaments and biological substances; Z88.5 Allergy status to narcotic agent
CPT/HCPCS: 36415; 80053; 85025; 96361; 96372; 96374; 96375; 99284

== ENCOUNTER 2020-02-06 18:07 | Emergency (ER) | payer MEDICARE ==
[~2020-02-06] VITALS: Ht 170 cm; Wt 66.0 kg
--- NOTE | 2020-02-06 18:40 | ED Headache ---
General Chief Complaint: Head/Cervical Problems Stated Complaint: MIGRIANE,VOMITING Nursing Triage Note: REPORTS SHE WAS IN THE ER TWICE LAST NIGHT WITH HEADACHE AND VOMITING AND HASNT GOTTEN ANY RELIEF. HAS NOT TAKEN ANYTHING FOR THE HEADACHE AND THE VOMITING. Nursing Sepsis Screen: No Definite Risk History of Present Illness Date Seen by Provider: Feb 06, 2020 Time Seen by Provider: 18:20 Initial Comments Patient is here with headache as mentioned in the ER 2 other times Toradol and Benadryl no relief she seems to be having anxiety while she is here suspicious of muscular type pain in the back of her neck bilaterally extending up across the top of her head to her forehead like a vice. Some nausea no vomiting not had much to eat or drink today. No fever no chills no body aches no change in urine or stools no sinus tenderness or pain Timing/Duration: 24 hours Severity/Quality: moderate Location: temporal, occipital Prior Headaches/Recent Trauma: chronic headaches Modifying Factors: worse with movement; improves with rest Associated Symptoms: No confusion; fatigue; No facial pain, No fever/chills; nausea/vomiting; No nasal congestion, No nasal drainage, No sinus infection, No stiff neck Allergies and Home Medications Allergies Coded Allergies: Sulfa (Sulfonamide Antibiotics) (Verified Allergy, Mild, Itching, 03/14/19) cefuroxime (Verified Allergy, Unknown, 08/21/18) haloperidol (Verified Allergy, Unknown, 10/31/18) magnesium (Verified Allergy, Unknown, 08/21/18) prochlorperazine (Verified Allergy, Unknown, rash, 08/21/18) topiramate (Verified Allergy, Unknown, 08/21/18) tramadol (Verified Allergy, Unknown, 10/31/18) Uncoded Allergies: DHE (Allergy, Unknown, 10/31/18) Home Medications Butalbital/Aspirin/Caffeine 1 Each Capsule, 1 EACH PO TID PRN for Headache Prescribed by: MELANIE CLAYTON on 09/02/19 185 Cyclobenzaprine HCl 10 Mg Tablet, 10 MG PO Q8H PRN for SPASMS Prescribed by: JAXSON ANDERSON on 10/31/18 181 Promethazine HCl 50 Mg Supp.rect, 50 MG RC Q8H Prescribed by: TRISTEN LANDRY on 11/29/19 1555 Patient Home Medication List Home Medication List Reviewed: Yes Review of Systems Review of Systems Constitutional: No chills, No dizziness, No fever, No malaise Eyes: Denies Blurred Vision, Denies Decreased Acuity Ears, Nose, Mouth, Throat: denies ear pain, denies throat pain Respiratory: No cough, No dyspnea on exertion Cardiovascular: No chest pain, No palpitations Gastrointestinal: No abdominal pain, No diarrhea; nausea; No vomiting Genitourinary: No dysuria, No frequency Musculoskeletal: No joint pain, No joint swelling; neck pain Skin: no symptoms reported Psychiatric/Neurological: Anxiety, Headache; Denies Numbness, Denies Tingling Past Kjibjcf-Egpsmq-Yoktqk Hx Past Med/Social Hx: Reviewed Nursing Past Med/Soc Hx Patient Social History Alcohol Use: Denies Use Recreational Drug Use: No 2nd Hand Smoke Exposure: No Recent Foreign Travel: No Contact w/Someone Who Travel: No Recent Infectious Disease Expo: No Recent Hopitalizations: No Physical Abuse: No Sexual Abuse: No Mistreated: No Fear: No Seasonal Allergies Seasonal Allergies: No Past Medical History Surgeries: Yes 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 Respiratory: No Cardiac: No Neurological: Yes 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 oz. 70.457158hc; 22.00 BMI Method:Stated General Appearance: WD/WN, moderate distress HEENT: PERRL/EOMI, TMs normal, pharynx normal Neck: other (bilateral paraspinous muscle tenderness and mild spasm) Cardiovascular: regular rate, rhythm, no murmur Respiratory: lungs clear, normal breath sounds Gastrointestinal: non tender, soft Extremities: normal range of motion, non-tender Psychiatric: alert, oriented x 3 Motor/Sensory: no motor deficit, no sensory deficit Skin: normal color, warm/dry Lymphatic: no adenopathy Progress/Results/Core Measures Results/Orders Lab Results Laboratory Tests Test 02/06/20 18:43 Range/Units White Blood Count 6.5 4.3-11.0 10^3/uL Red Blood Count 5.22 4.35-5.85 10^6/uL Hemoglobin 16.4 H 11.5-16.0 G/DL Hematocrit 45 35-52 % Mean Corpuscular Volume 86 80-99 FL Mean Corpuscular Hemoglobin 31 25-34 PG Mean Corpuscular Hemoglobin Concent 37 H 32-36 G/DL Red Cell Distribution Width 11.3 10.0-14.5 % Platelet Count 205 130-400 10^3/uL Mean Platelet Volume 9.2 7.4-10.4 FL Neutrophils (%) (Auto) 72 42-75 % Lymphocytes (%) (Auto) 18 12-44 % Monocytes (%) (Auto) 8 0-12 % Eosinophils (%) (Auto) 1 0-10 % Basophils (%) (Auto) 1 0-10 % Neutrophils # (Auto) 4.7 1.8-7.8 X 10^3 Lymphocytes # (Auto) 1.2 1.0-4.0 X 10^3 Monocytes # (Auto) 0.5 0.0-1.0 X 10^3 Eosinophils # (Auto) 0.0 0.0-0.3 10^3/uL Basophils # (Auto) 0.0 0.0-0.1 10^3/uL Sodium Level 139 135-145 MMOL/L Potassium Level 4.0 3.6-5.0 MMOL/L Chloride Level 99 98-107 MMOL/L Carbon Dioxide Level 23 21-32 MMOL/L Anion Gap 17 H 5-14 MMOL/L Blood Urea Nitrogen 12 7-18 MG/DL Creatinine 0.79 0.60-1.30 MG/DL Estimat Glomerular Filtration Rate > 60 BUN/Creatinine Ratio 15 Glucose Level 105 70-105 MG/DL Calcium Level 10.1 8.5-10.1 MG/DL Corrected Calcium 8.5-10.1 MG/DL Total Bilirubin 1.2 H 0.1-1.0 MG/DL Aspartate Amino Transf (AST/SGOT) 22 5-34 U/L Alanine Aminotransferase (ALT/SGPT) 14 0-55 U/L Alkaline Phosphatase 83 40-136 U/L Total Protein 7.5 6.4-8.2 GM/DL Albumin 5.0 H 3.2-4.5 GM/DL Karlene BELTRANHENOK L JR, MD Cbc With Automated Diff (02/06/20 18:34) Comprehensive Metabolic Panel (02/06/20 18:34) Orphenadrine Inj (Ed Only) (Norflex Inje (02/06/20 18:45) Ns Iv 1000 Ml (Sodium Chloride 0.9%) (02/06/20 18:45) Medications Given in ED Current Medications Medications Dose Ordered Sig/Shell Route Start Time Stop Time Status Last Admin Dose Admin Orphenadrine Citrate 60 mg ONCE ONCE IV 02/06/20 18:45 02/06/20 18:46 DC 02/06/20 18:49 60 MG Vital Signs/I&O 02/06/20 18:22 Temp 36.6 Pulse 85 Resp 18 B/P (MAP) 144/68 (93) Pulse Ox 99 Blood Pressure Mean: 93 Departure Communication (Admissions) Much improved. Impression Primary Impression: Tension type headache Qualified Codes: G44.209 - Tension-type headache, unspecified, not intractable Disposition: 01 HOME, SELF-CARE Condition: Stable Departure-Patient Inst. Referrals: SABINA VELOZ MD (PCP/Family) Primary Care Physician Patient Instructions: Headache, Adult (DC) HENOK BELTRAN JR, MD Feb 06, 2020 18:40
[2020-02-06] MEDS ORDERED: NS IV 1000 ML 1,000 ML IV SCH (18:45)
[2020-02-06] MEDS ORDERED: ORPHENADRINE 60 MG/2 ML (NORFLEX) AMP (ED ONLY) IV ONE (18:45)
--- OUTSIDE RECORDS SUMMARY | 2020-02-06 18:46 | XMS REPORT | Continuity of Care Document ---
Author Author [facility] Organization [employer] Address Unknown Phone Unavailable Allergies Active Description Code Type Severity Reaction Onset Reported/Identified Relationship to Patient Clinical Status Yes Sulfa (Sulfonamides) 491 Unknown N/A 06/24/2016 Yes Ceftin 3716 Unknown N/A 03/24/2018 Yes Compazine 3622 Unknown N/A 03/24/2018 Yes Magnesium 784 Unknown N/A 03/24/2018 Yes Topamax 09043 Unknown N/A 03/24/2018 Yes SULFA SULFA Mild itchy 08/21/2018 Yes cefuroxime [id number] Drug Allerg y Unknown N/A 08/21/2018 Yes magnesium [id number] Drug Allergy Unknown N/A 08/21/2018 Yes No Known Drug Allergies [id number] Drug Allergy Unknown N/A 08/21/2018 Yes prochlorperazine [id number] Drug Allergy Unknown rash 08/21/2018 Yes topiramate [id number] Drug Allerg y Unknown N/A 08/21/2018 Yes DHE DHE Unknown N/A 10/31/2018 Yes haloperidol [id number] Drug Aller gy Unknown N/A 10/31/2018 Yes tramadol [id number] Drug Allergy Unknown N/A 10/31/2018 Yes Sulfa (Sulfonamide Antibiotics) [id number] Drug Allergy Mild Itching 019 Medications [...] AURA, NOT INTRACTABLE, WITHOUT STATUS MIGRAINOSUS 01/26/2017 GASTELUM, JULIO P G43.90 9 MIGRAINE, UNSPECIFIED, NOT INTRACTABLE, WITHOUT STATUS MIGRAINOSUS 01/26/2017 Alma Rosa ADEN P G43.009 MIGRAINE WITHOUT AURA, NOT INTRACTABLE, WITHOUT STATUS MIGRAINOSUS 07/18/2018 [facility] P G[facility].809 OTHER MIGRAINE, NOT INTRACTABLE, WITHOUT STATUS MIGRAI NOSUS 07/18/2018 [facility] A R51 HEADACHE 08/22/2018 ASHLEY ELLIOTT DOED T Ot R11. 2 NAUSEA WITH VOMITING, UNSPECIFIED 08/22/2018 EARL ARAGON JOEL T Ot R51 HEADACHE 08/22/2018 EARL ARAGON JOEL T Ot Z88. 2 ALLERGY STATUS TO SULFONAMIDES STATUS 08/22/2018 ASHLEY ELLIOTT DOED T Ot Z88. 8 ALLERGY STATUS TO [...] 2 ALLERGY STATUS TO SULFONAMIDES STATUS 08/23/2018 ASHLEY ELLIOTT DOED T Ot Z88. 8 ALLERGY STATUS TO [...] ABSENCE OF BOTH CERVIX AND UTER 09/09/2018 ROSALIE, TRUNG L P G43.9 09 MIGRAINE, UNSPECIFIED, NOT INTRACTABLE, WITHOUT STATUS MIGRAINOSUS 09/09/2018 ROSALIE, TRUNG L P G43.9 09 MIGRAINE, UNSPECIFIED, NOT INTRACTABLE, WITHOUT STATUS MIGRAINOSUS 09/09/2018 DILLAN WIGGINSA L S R11.2 NAUSEA WITH VOMITING, UNSPECIFIED 10/31/2018 JAXSON ANDERSON MD Ot F41. 9 ANXIETY DISORDER, UNSPECIFIED 10/31/2018 JAXSON ANDERSON MD J Ot G43.909 MIGRAINE, UNSP, NOT INTRACTABLE, WITHOUT 10/31/2018 JAXSON ANDERSON MD J Ot R51 HEADACHE 10/31/2018 JAXSON ANDERSON MD Ot Z88. 2 ALLERGY STATUS TO SULFONAMIDES STATUS 10/31/2018 JAXSON ANDERSON MD J Ot Z88. 6 ALLERGY STATUS TO ANALGESIC AGENT STATUS 10/31/2018 JAXSON ANDERSON MD Ot Z88. 8 ALLERGY STATUS TO OTH DRUG/MEDS/BIOL SUB 10/31/2018 JAXSON ANDERSON MD Ot Z90.710 ACQUIRED ABSENCE OF BOTH CERVIX AND UTER 11/04/2018 JAXSON ANDERSON MD Ot F41. 9 ANXIETY DISORDER, UNSPECIFIED 11/04/2018 JAXSON ANDERSON MD J Ot G43.909 MIGRAINE, UNSP, NOT INTRACTABLE, WITHOUT 11/04/2018 JAXSON ANDERSON MD J Ot R51 HEADACHE 11/04/2018 JAXSON ANDERSON MD Ot Z88. 2 ALLERGY STATUS TO SULFONAMIDES STATUS 11/04/2018 JAXSON ANDERSON MD Ot Z88. 6 ALLERGY STATUS TO ANALGESIC AGENT STATUS 11/04/2018 JAXSON ANDERSON MD Ot Z88. 8 ALLERGY STATUS TO OTH DRUG/MEDS/BIOL SUB 11/04/2018 JAXSON ANDERSON MD J Ot Z90.710 ACQUIRED ABSENCE OF BOTH CERVIX [...] ABSENCE OF BOTH CERVIX AND UTER 12/25/2018 GUIDOVERONICA CRUZ DO Ot F41 .9 ANXIETY DISORDER, UNSPECIFIED 12/25/2018 VERONICA LORA DO Ot G43.909 MIGRAINE, UNSP, NOT INTRACTABLE, WITHOUT 12/25/2018 VERONICA LORA DO Ot Z88 .1 ALLERGY STATUS TO OTHER ANTIBIOTIC AGENT 12/25/2018 VERONICA LORA DO Ot Z88 .2 ALLERGY STATUS TO SULFONAMIDES STATUS 12/25/2018 VERONICA LORA DO Ot Z88 .5 ALLERGY STATUS TO NARCOTIC AGENT STATUS 12/25/2018 GUIDO DOVERONICA Ot Z88 .8 ALLERGY STATUS TO OTH DRUG/MEDS/BIOL SUB 12/25/2018 VERONICA LORA DO Ot Z90.710 ACQUIRED ABSENCE OF BOTH CERVIX AND UTER 01/01/2019 LANDRY DOTRISTEN Ot F41.9 ANXIETY DISORDER, UNSPECIFIED 01/01/2019 LANDRY DO, TRISTEN Ot G43.909 MIGRAINE, UNSP, NOT INTRACTABLE, WITHOUT 01/01/2019 LANDRY DO, TRISTEN Ot R51 HEADACHE 01/01/2019 LANDRY DO, TRISTEN Ot Z88.1 ALLERGY STATUS TO OTHER ANTIBIOTIC AGENT 01/01/2019 LANDRY DO, TRISTEN Ot Z88.2 ALLERGY STATUS TO SULFONAMIDES STATUS 01/01/2019 LANDRY DO, TRISTEN Ot Z88.5 ALLERGY STATUS TO NARCOTIC AGENT STATUS 01/01/2019 LANDRY DO, TRISTEN Ot Z88.8 ALLERGY STATUS TO OTH DRUG/MEDS/BIOL SUB 01/01/2019 LANDRY DO TRISTEN Ot Z90.710 ACQUIRED ABSENCE OF [...] ALLERGY STATUS TO OTH DRUG/MEDS/BIOL SUB 01/07/2019 LANDRY DOTRISTEN Ot Z90.710 ACQUIRED ABSENCE OF BOTH CERVIX [...] OF BOTH CERVIX AND UTER 03/14/2019 ROVENSTINE DOHERON Ot F41.9 ANXIETY DISORDER, UNSPECIFIED 03/14/2019 ROVENSTINE DOHERON Ot G43.909 MIGRAINE, UNSP, NOT INTRACTABLE, WITHOUT 03/14/2019 ROVENSTINE DO, HERON L Ot R51 HEADACHE 03/14/2019 ROVENSTINE DO, HERON L Ot Z88.1 ALLERGY [...] Ot R51 HEADACHE 03/18/2019 ROVENSTINE DO, HERON L Ot Z88.1 ALLERGY STATUS TO OTHER ANTIBIOTIC AGENT 03/18/2019 ROVENSTINE DO, HERON L Ot Z88.2 ALLERGY STATUS TO SULFONAMIDES STATUS 03/18/2019 ROVENSTINE DO, HERON L Ot Z88.5 ALLERGY STATUS TO NARCOTIC AGENT STATUS 03/18/2019 ROVENSTINE DO, HERON L Ot Z88.8 ALLERGY STATUS TO OTH DRUG/MEDS/BIOL SUB 03/18/2019 ROVENSTINE DO, HERON Alyce Ot Z90.710 ACQUIRED ABSENCE OF BOTH CERVIX AND UTER 03/21/2019 SUSANA LOPEZ MD Ot F41.9 ANXIETY DISORDER, UNSPECIFIED 03/21/2019 SUSANA [...] ABSENCE OF BOTH CERVIX AND UTER 04/08/2019 JOSIE RESENDIZ, NEMO A Ot F41. 9 ANXIETY DISORDER, UNSPECIFIED 04/08/2019 JOSIE RESENDIZ, NEMO A Ot R51 HEADACHE 04/08/2019 JOSIE RESENDIZ, NEMO A Ot Z86. 69 PERSONAL HISTORY OF DIS OF THE NERVOUS S 04/08/2019 JOSIE RESENDIZ, NEMO A Ot Z88. 1 ALLERGY STATUS TO OTHER ANTIBIOTIC AGENT 04/08/2019 JOSIE RESENDIZ, NEMO A Ot Z88. 2 ALLERGY STATUS TO SULFONAMIDES STATUS 04/08/2019 JOSIE RESENDIZ, NEMO A Ot Z88. 5 ALLERGY STATUS TO NARCOTIC AGENT STATUS 04/08/2019 JOSIE RESENDIZ, NEMO A Ot Z88. 8 ALLERGY STATUS TO OTH DRUG/MEDS/BIOL SUB 04/08/2019 JOSIE RESENDIZ, NEMO A Ot Z90.710 ACQUIRED ABSENCE OF BOTH CERVIX AND UTER 04/11/2019 NEMO GALINDO MD A Ot F41. 9 ANXIETY DISORDER, UNSPECIFIED 04/11/2019 JOSIE RESENDIZ, NEMO A Ot R51 HEADACHE 04/11/2019 JOSIE RESENDIZ, NEMO A Ot Z86. 69 [...] ALLERGY STATUS TO NARCOTIC AGENT STATUS 04/12/2019 SUSANA LOPEZ MD Ot Z88.8 ALLERGY STATUS [...] RESENDIZ, NEMO A Ot R51 HEADACHE 04/17/2019 JOSIE RESENDIZ, NEMO A Ot Z86. 69 PERSONAL HISTORY OF DIS OF THE NERVOUS S 04/17/2019 NEMO GALINDO MD A Ot Z88. 1 ALLERGY STATUS TO OTHER ANTIBIOTIC AGENT 04/17/2019 NEMO GALINDO MD A Ot Z88. 2 ALLERGY STATUS TO SULFONAMIDES STATUS 04/17/2019 EVON GALINDO MDNT A Ot Z88. 5 ALLERGY STATUS TO NARCOTIC AGENT STATUS 04/17/2019 NEMO GALINDO MD A Ot Z88. 8 ALLERGY STATUS TO OTH DRUG/MEDS/BIOL SUB 04/17/2019 NEMO GALINDO MD A Ot Z90.710 ACQUIRED ABSENCE OF BOTH CERVIX AND UTER 04/21/2019 NEMO GALINDO MD A Ot F41. 9 ANXIETY DISORDER, UNSPECIFIED 04/21/2019 JOSIE RESENDIZ, NEMO A Ot R51 HEADACHE 04/21/2019 NEMO GALINDO MD A Ot Z86. 69 PERSONAL HISTORY OF DIS OF THE NERVOUS S 04/21/2019 NEMO GALINDO MD A Ot Z88. 1 ALLERGY STATUS TO OTHER ANTIBIOTIC AGENT 04/21/2019 JOSIE RESENDIZ, NEMO A Ot Z88. 2 [...] NOT INTRACTABLE, WITHOUT 05/04/2019 SUSANA LOPEZ MD Ot R51 HEADACHE 05/04/2019 SUSANA LOPEZ MD [...] MD Ot F41.9 ANXIETY DISORDER, UNSPECIFIED 05/07/2019 ENYART MD, SUSANA E Ot G43.9 09 MIGRAINE, UNSP, NOT INTRACTABLE, WITHOUT 05/07/2019 JOHN RESENDIZ, SUSANA Ramachandran Ot R51 HEADACHE 05/07/2019 JOHN RESENDIZ, SUSANA Ramachandran Ot Z88.1 ALLERGY STATUS TO OTHER ANTIBIOTIC AGENT 05/07/2019 JOHN RESENDIZ, SUSANA Ramachandran Ot Z88.2 ALLERGY STATUS TO SULFONAMIDES STATUS 05/07/2019 JOHN RESENDIZ, SUSANA Ramachandran Ot Z88.5 ALLERGY STATUS TO NARCOTIC AGENT STATUS 05/07/2019 JOHN RESENDIZ, SUSANA Ramachandran Ot Z88.8 ALLERGY [...] ABSENCE OF BOTH CERVIX AND UTER 05/20/2019 ACNDI TOM DO Ot F41. 9 ANXIETY DISORDER, UNSPECIFIED 05/20/2019 CANDI TOM DO Ot G43.909 MIGRAINE, UNSP, NOT INTRACTABLE, WITHOUT 05/20/2019 CANDI TOM DO Ot R51 HEADACHE 05/20/2019 CANDI TOM DO Ot Z88. 1 ALLERGY STATUS TO OTHER ANTIBIOTIC AGENT 05/20/2019 CANDI TOM DO Ot Z88. 2 ALLERGY STATUS TO SULFONAMIDES STATUS 05/20/2019 CANDI TOM DO Ot Z88. 5 ALLERGY STATUS TO NARCOTIC AGENT STATUS 05/20/2019 CANDI TOM DO Ot Z88. 8 ALLERGY STATUS TO OTH DRUG/MEDS/BIOL SUB 05/20/2019 VAISHALI CANDI ARAGON Ot Z90.710 ACQUIRED ABSENCE OF BOTH CERVIX AND UTER 05/23/2019 CANDI TOM DO Ot F41. 9 ANXIETY DISORDER, UNSPECIFIED 05/23/2019 CANDI TOM DO Ot G43.909 MIGRAINE, UNSP, NOT INTRACTABLE, WITHOUT 05/23/2019 CANDI TOM DO Ot R51 HEADACHE 05/23/2019 CANDI TOM DO B Ot Z88. 1 ALLERGY STATUS TO OTHER ANTIBIOTIC AGENT 05/23/2019 FRENCH TOM DOORD B Ot Z88. 2 ALLERGY STATUS TO [...] CERVIX AND UTER 05/30/2019 NEMO GALINDO MD Ot F41. 9 ANXIETY DISORDER, UNSPECIFIED 05/30/2019 NEMO GALINDO MD Ot G43.909 MIGRAINE, UNSP, NOT INTRACTABLE, WITHOUT 05/30/2019 NEMO GALINDO MD Ot R51 HEADACHE 05/30/2019 NEMO GALINDO MD A Ot Z88. 1 ALLERGY STATUS TO OTHER ANTIBIOTIC AGENT 05/30/2019 EVON GALINDO MDNT A Ot Z88. 2 ALLERGY STATUS TO SULFONAMIDES STATUS 05/30/2019 EVON GALINDO MDNT A Ot Z88. 5 ALLERGY STATUS TO NARCOTIC AGENT STATUS 05/30/2019 JOSIE RESENDIZ, NEMO A Ot Z88. 8 ALLERGY STATUS TO OTH DRUG/MEDS/BIOL SUB 05/30/2019 JOSIE RESENDIZ, NEMO A Ot Z90.710 ACQUIRED ABSENCE OF BOTH CERVIX AND UTER 06/03/2019 NEMO GALINDO MD A Ot F41. 9 ANXIETY DISORDER, UNSPECIFIED 06/03/2019 NEMO GALINDO MD A Ot G43.909 MIGRAINE, UNSP, NOT INTRACTABLE, WITHOUT 06/03/2019 JOSIE RESENDIZ NEMO A Ot R51 HEADACHE 06/03/2019 JOSIE RESENDIZ, NEMO A Ot Z88. 1 ALLERGY STATUS TO OTHER ANTIBIOTIC AGENT 06/03/2019 EVON GALINDO MDNT A Ot Z88. 2 ALLERGY STATUS TO SULFONAMIDES STATUS 06/03/2019 NEMO GALINDO MD A Ot Z88. 5 ALLERGY STATUS TO NARCOTIC AGENT STATUS 06/03/2019 EVON GALINDO MDNT A Ot Z88. 8 ALLERGY STATUS TO [...] NARCOTIC AGENT STATUS 06/15/2019 HENOK BELTRAN MD L Ot Z88.8 ALLERGY STATUS TO OTH DRUG/MEDS/BIOL SUB 06/15/2019 HENOK BELTRAN MD L Ot Z90.710 ACQUIRED ABSENCE OF BOTH CERVIX AND UTER 06/17/2019 HENOK BELTRAN MD Ot F41.9 ANXIETY DISORDER, UNSPECIFIED 06/17/2019 HENOK BELTRAN MD Ot G43.909 MIGRAINE, UNSP, NOT INTRACTABLE, WITHOUT 06/17/2019 HENOK BELTRAN MD Ot R5 1 HEADACHE 06/17/2019 HENOK BELTRAN MD Ot Z88.1 ALLERGY STATUS TO OTHER ANTIBIOTIC AGENT 06/17/2019 HENOK BELTRAN MD Ot Z88.2 ALLERGY STATUS TO SULFONAMIDES STATUS 06/17/2019 DEVIN RESENDIZ, HENOK L Ot Z88.5 ALLERGY STATUS TO NARCOTIC AGENT STATUS 06/17/2019 DEVIN RESENDIZ, HENOK L Ot Z88.8 ALLERGY STATUS TO OTH [...] ALLERGY STATUS TO OTH DRUG/MEDS/BIOL SUB 06/24/2019 JOSIE RESENDIZ, NEMO A Ot Z90.710 ACQUIRED ABSENCE OF BOTH CERVIX AND UTER 06/25/2019 NEMO GALINDO MD A Ot F41. 9 ANXIETY DISORDER, UNSPECIFIED 06/25/2019 JOSIE RESENDIZ NEMO A Ot R51 HEADACHE 06/25/2019 JOSIE RESENDIZ NEMO A Ot Z86. 69 PERSONAL HISTORY OF DIS OF THE NERVOUS S 06/25/2019 EVON GALINDO MDNT A Ot Z88. 1 ALLERGY STATUS TO OTHER ANTIBIOTIC AGENT 06/25/2019 JOSIE RESENDIZ, NEMO A Ot Z88. 2 ALLERGY STATUS TO SULFONAMIDES STATUS 06/25/2019 JOSIE RESENDIZ, NEMO A Ot Z88. 5 ALLERGY STATUS TO NARCOTIC AGENT STATUS 06/25/2019 JOSIE RESENDIZ, NEMO A Ot Z88. 8 ALLERGY STATUS TO OTH DRUG/MEDS/BIOL SUB 06/25/2019 JOSIE RESENDIZ, NEMO A Ot Z90.710 ACQUIRED ABSENCE OF BOTH CERVIX AND UTER 06/30/2019 NEMO GALINDO MD A Ot F41. 9 ANXIETY DISORDER, UNSPECIFIED 06/30/2019 JOSIE RESENDIZ NEMO A Ot R51 HEADACHE 06/30/2019 JOSIE RESENDIZ NEMO A Ot Z86. 69 PERSONAL HISTORY OF DIS OF THE NERVOUS S 06/30/2019 JOSIE RESENDIZ NEMO A Ot Z88. 1 ALLERGY STATUS TO OTHER ANTIBIOTIC AGENT 06/30/2019 JOSIE RESENDIZ, NEMO A Ot Z88. 2 ALLERGY STATUS TO SULFONAMIDES STATUS 06/30/2019 JOSIE RESENDIZ, NEMO A Ot Z88. 5 ALLERGY STATUS TO NARCOTIC AGENT STATUS 06/30/2019 JOSIE RESENDIZ, NEMO Waters Ot Z88. 8 ALLERGY STATUS TO OTH DRUG/MEDS/BIOL SUB 06/30/2019 JOSIE RESENDIZ, NEMO Waters Ot Z90.710 ACQUIRED ABSENCE OF BOTH CERVIX AND UTER 08/03/2019 JOHN RESENDIZ, SUSANA Ramachandran Ot G43.9 09 MIGRAINE, UNSP, NOT INTRACTABLE, WITHOUT 08/03/2019 JOHN RESENDIZ, SUSANA E Ot R51 HEADACHE 08/03/2019 JOHN RESENDIZ, SUSANA Ramachandran Ot Z88.1 ALLERGY STATUS TO OTHER ANTIBIOTIC AGENT 08/03/2019 JOHN RESENDIZ, SUSANA Ramachandran Ot Z88.2 ALLERGY STATUS TO SULFONAMIDES STATUS 08/03/2019 JOHN RESENDIZ, SUSANA Ramachandran Ot Z88.5 ALLERGY STATUS TO NARCOTIC AGENT STATUS 08/03/2019 JOHN RESENDIZ, SUSANA Ramachandran Ot Z88.8 ALLERGY STATUS TO OTH DRUG/MEDS/BIOL SUB 08/11/2019 BERNABE DO, MELANIE L Ot F41 .9 ANXIETY DISORDER, UNSPECIFIED 08/11/2019 BERNABE DO, MELANIE L Ot R51 HEADACHE 08/11/2019 BERNABE DO, MELANIE L Ot Z86.69 PERSONAL [...] .2 ALLERGY STATUS TO SULFONAMIDES STATUS 08/13/2019 RIDGWAY DO, MELANIE Mead Ot Z88 .5 ALLERGY STATUS TO NARCOTIC AGENT STATUS 08/13/2019 BERNABE DO, MELANIE Mead Ot Z88 .8 ALLERGY STATUS TO OTH DRUG/MEDS/BIOL SUB 08/13/2019 BERNABE DO, MELANIE Mead Ot Z90.710 ACQUIRED ABSENCE OF BOTH CERVIX AND UTER 08/14/2019 JOHN RESENDIZ, SUSANA Ramachandran Ot G43.0 09 MIGRAINE W/O AURA, NOT INTRACTABLE, W/O 08/14/2019 ENMICHELLE RESENDIZ, SUSANA Ramachandran Ot G43.9 09 MIGRAINE, UNSP, NOT INTRACTABLE, WITHOUT 08/14/2019 SUSANA LOPEZ MD Ot Z88.2 ALLERGY STATUS TO SULFONAMIDES STATUS 08/14/2019 JOHN RESENDIZ, SUSANA Ramachandran Ot Z88.5 ALLERGY STATUS TO NARCOTIC AGENT STATUS 08/14/2019 SUSANA LOPEZ MD Ot Z88.8 ALLERGY STATUS TO OTH DRUG/MEDS/BIOL SUB 08/14/2019 SUSANA LOPEZ MD Ot Z90.7 10 ACQUIRED ABSENCE OF BOTH CERVIX AND UTER 08/25/2019 [facility], MARY BETH Carrillo Ot G43.7 09 CHRONIC MIGRAINE W/O AURA, NOT INTRACTAB 08/25/2019 SMYRNA DOMARY BETH Ot R51 HEADACHE 08/25/2019 [facility] Ot Z88.1 ALLERGY STATUS TO OTHER ANTIBIOTIC AGENT 08/25/2019 [facility], MARY BETH Carrillo Ot Z88.2 ALLERGY STATUS TO SULFONAMIDES STATUS 08/25/2019 [facility], MARY BETH Carrillo Ot Z88.5 ALLERGY STATUS TO NARCOTIC AGENT STATUS 08/25/2019 [facility], MARY BETH Carrillo Ot Z88.8 ALLERGY STATUS [...] ALLERGY STATUS TO OTH DRUG/MEDS/BIOL SUB 08/27/2019 SMYRNA DO, MARY BETH Carrillo Ot G43.7 09 CHRONIC MIGRAINE W/O AURA, NOT INTRACTAB 08/27/2019 SMYRNA DO, MARY BETH Carrillo Ot R51 HEADACHE 08/27/2019 SMYRNA DO, MARY BETH Carrillo Ot Z88.1 ALLERGY STATUS TO OTHER ANTIBIOTIC AGENT 08/27/2019 SMYRNA DO, MARY BETH Carrillo Ot Z88.2 ALLERGY STATUS TO SULFONAMIDES STATUS 08/27/2019 SMYRNA DO, MARY BETH Carrillo Ot Z88.5 ALLERGY STATUS TO NARCOTIC AGENT STATUS 08/27/2019 SMYRNA DO, MARY BETH Carrillo Ot Z88.8 ALLERGY [...] ALLERGY STATUS TO NARCOTIC AGENT STATUS 09/01/2019 [place] VERONICA ARAGON Ot Z88 .8 ALLERGY STATUS TO OTH DRUG/MEDS/BIOL SUB 09/02/2019 MELANIE CLAYTON MD Ot G43.909 MIGRAINE, UNSP, NOT INTRACTABLE, WITHOUT 09/02/2019 MELANIE CLAYTON MD Ot R11.2 NAUSEA WITH VOMITING, UNSPECIFIED 09/02/2019 [...] ALLERGY STATUS TO OTH DRUG/MEDS/BIOL SUB 10/10/2019 ULISSES WHITE DO Ot G43.909 MIGRAINE, UNSP, NOT INTRACTABLE, [...] NOT INTRACTABLE, WITHOUT 10/13/2019 CINDY DO, ULISSES Yennifer Ot R5 1 HEADACHE 10/13/2019 [facility], ULISSES De Oliveira Ot Z88.1 ALLERGY STATUS TO OTHER ANTIBIOTIC AGENT 10/13/2019 [facility], ULISSES De Oliveira Ot Z88.2 ALLERGY STATUS TO SULFONAMIDES STATUS 10/13/2019 [facility], ULISSES De Oliveira Ot Z88.5 ALLERGY STATUS TO NARCOTIC AGENT STATUS 10/13/2019 [facility], ULISSES De Oliveira Ot Z88.8 ALLERGY STATUS TO OTH DRUG/MEDS/BIOL SUB 10/19/2019 [facility], ULISSES De Oliveira Ot G43.909 MIGRAINE, UNSP, NOT INTRACTABLE, WITHOUT 10/19/2019 CINDY DO, ULISSES De Oliveira Ot R5 1 HEADACHE 10/19/2019 [facility], ULISSES De Oliveira Ot Z88.1 ALLERGY STATUS TO OTHER ANTIBIOTIC AGENT 10/19/2019 [facility], ULISSES De Oliveira Ot Z88.2 ALLERGY STATUS TO SULFONAMIDES STATUS 10/19/2019 [facility], ULISSES De Oliveira Ot Z88.5 ALLERGY STATUS TO NARCOTIC AGENT STATUS 10/19/2019 [facility], ULISSES De Oliveira Ot Z88.8 ALLERGY STATUS TO OTH DRUG/MEDS/BIOL SUB 11/08/2019 MELANIE CLAYTON MD Ot R5 1 HEADACHE 11/08/2019 MELANIE CLAYTON MD Ot Z79.82 GROUP HOME (CURRENT) USE OF ASPIRIN 11/08/2019 MELANIE CLAYTON [...] STATUS TO OTH DRUG/MEDS/BIOL SUB 11/29/2019 ROVENSTINE DO HERON Alyce Ot G43.909 MIGRAINE, UNSP, NOT INTRACTABLE, WITHOUT 11/29/2019 ROVENSTINE DO, HERON L Ot R51 HEADACHE 11/29/2019 ROVENSTINE DO, HERON L Ot Z79.82 GROUP HOME (CURRENT) USE OF ASPIRIN 11/29/2019 ROVENSTINE DO, [...] HEADACHE 11/29/2019 LANDRY DO, TRISTEN Ot Z79.82 APPLICATION OPERATIONS ENGINEER (CURRENT) USE OF ASPIRIN 11/29/2019 LANDRY DO, [...] 12/02/2019 ROVENSTINE DO, HERON Mead Ot Z79.82 GROUP HOME (CURRENT) USE OF ASPIRIN 12/02/2019 ROVENSTINE DO, [...] LANDRY DO, TRISTEN Ot R51 HEADACHE 12/02/2019 [place] DO, TRISTEN Ot Z79.82 APPLICATION OPERATIONS ENGINEER (CURRENT) USE OF ASPIRIN 12/02/2019 LANDRY DO, TRISTEN Ot Z88.1 ALLERGY STATUS TO OTHER ANTIBIOTIC AGENT 12/02/2019 [place] DO, TRISTEN Ot Z88.2 ALLERGY STATUS TO SULFONAMIDES STATUS 12/02/2019 LANDRY DO, TRISTEN Ot Z88.5 ALLERGY STATUS TO NARCOTIC AGENT STATUS 12/02/2019 LANDRY DO, TRISTEN Ot Z88.8 ALLERGY STATUS TO OTH DRUG/MEDS/BIOL SUB 12/12/2019 ROVENSTINE DO, HERON L Ot G43.709 CHRONIC MIGRAINE W/O AURA, NOT [...] ALLERGY STATUS TO OTH DRUG/MEDS/BIOL SUB 01/11/2020 [place] DO, TRISTEN Ot F41.9 ANXIETY DISORDER, UNSPECIFIED 01/11/2020 [place] DO, TRISTEN Ot R51 HEADACHE 01/11/2020 [place] DO, TRISTEN Ot Z86.69 PERSONAL HISTORY OF DIS OF THE NERVOUS S 01/11/2020 [place] DO, TRISTEN Ot Z88.1 ALLERGY STATUS TO OTHER ANTIBIOTIC AGENT 01/11/2020 [place] DO, TRISTEN Ot Z88.2 ALLERGY STATUS TO SULFONAMIDES STATUS 01/11/2020 [place] DO, TRISTEN Ot Z88.5 ALLERGY STATUS TO NARCOTIC AGENT STATUS 01/11/2020 [place] DO, TRISTEN Ot Z88.8 ALLERGY STATUS TO OTH DRUG/MEDS/BIOL SUB 01/14/2020 [place] DO, TRISTEN Ot F41.9 ANXIETY DISORDER, UNSPECIFIED 01/14/2020 [place] DO, TRISTEN Ot R51 HEADACHE 01/14/2020 [place] DO, TRISTEN Ot Z86.69 PERSONAL HISTORY OF DIS OF THE NERVOUS S 01/14/2020 [place] DO, TRISTEN Ot Z88.1 ALLERGY STATUS TO OTHER ANTIBIOTIC AGENT 01/14/2020 [place] DO, TRISTEN Ot Z88.2 ALLERGY STATUS TO SULFONAMIDES STATUS 01/14/2020 LANDRY DO, TRISTEN Ot Z88.5 ALLERGY STATUS TO NARCOTIC AGENT STATUS 01/14/2020 LANDRY DO, TRISTEN Ot Z88.8 ALLERGY STATUS [...] STATUS TO SULFONAMIDES STATUS 01/22/2020 SABINA DOUGHERTY MD, Ot Z88.5 ALLERGY STATUS [...] Status Pt. Type Provider Facility Loc./Unit Complaint [id number] 12/02/2019 14:00:00 12/02/2019 23:59: 59 [facility] Outpatient WENCESLAO [facility] [id number] 04/16/2019 07:30:00 Document Registration [id number] 01/29/2019 18:20:00 Document Registration [id number] 12/12/2018 14:15:00 Document Registration [id number] 11/07/2018 17:20:00 Document Registration [id number] 10/25/2018 16:10:00 Document Registration [id number] 10/12/2018 16:20:00 Document Registration [id number] 06/23/2018 04:07:00 [facility] [id number] 06/22/2018 22:07:00 ACT Unknown TRUNG WIGGINS [facility] [id number] 03/24/2018 19:16:00 [facility] [id number] 01/09/2017 18:47:00 ACT Unknown REDD GASTELUM [facility] NSER HEADACHE [id number] 01/07/2017 21:26:00 ACT Unknown Alma Rosa ADEN A-ED [facility] NSER HEADACHE [id number] 06/24/2016 20:12:00 ACT [facility] NSER HEAD[facility]HE [id number] 06/26/2015 20:27:00 ACT Unknown JC LLANES Nadia [id number] 02/06/2020 00:41:00 01:03:00 DIS Emergency SUSANA LOPEZ MD [facility] ER FS MIGRAINE [id number] 02/05/2020 20:08:00 20:57:00 DIS Emergency SUSANA LOPEZ MD [facility] ER FS MIGRIANE [id number] 01/20/2020 04:41:00 05:03:00 DIS Outpatient MELANIE CLAYTON MD [facility] ER FS MIGRAINE [id number] 01/16/2020 21:58:00 22:55:00 DIS Outpatient FARHAT RESENDIZ, SABINA [facility] ER FS MIGRIANE [id number] 01/11/2020 01:52:00 02:32:00 DIS Emergency TRISTEN LANDRY DO [facility] ER FS HEADACHE [id number] 12/12/2019 05:44:00 06:22:00 DIS Emergency HERON PERLA DO [facility] ER FS MIGRAINE [id number] 11/29/2019 15:01:00 16:00:00 DIS Emergency TRISTEN LANDRY DO [facility] ER FS HEADACHE;VOMITING [id number] 11/29/2019 01:20:00 03:03:00 DIS Emergency ROVENSTINE DO HERON L [facility] ER FS HEADACHE [id number] 11/08/2019 14:24:00 15:03:00 DIS Emergency MATILDE RESENDIZ, MELANIE Nielson [facility] ER FS HEADACHE [id number] 10/10/2019 05:42:00 06:38:00 DIS Emergency CINDY DO ULISSES H [facility] ER FS MIGRAINE [id number] 09/24/2019 18:49:00 19:29:00 DIS Emergency VAISHALI DO, CANDI B [facility] ER FS MIGRAINE,VOMITING [id number] 09/02/2019 18:34:00 19:21:00 DIS Emergency MATILDE RESENDIZ, MELANIE Nielson [facility] ER FS MIGRAINE,NAUSEA,VOMITIN G [id number] 08/27/2019 01:02:00 01:24:00 DIS Emergency VERONICA LORA DO [facility] ER FS MIGRAINE [id number] 08/25/2019 03:50:00 05:08:00 DIS Emergency MARY BETH ALEMAN DO [facility] ER FS HEADACHE [id number] 08/12/2019 03:28:00 03:53:00 DIS Outpatient SUSANA LOPEZ MD [facility] ER FS MIGRAINE [id number] 08/10/2019 23:52:00 00:24:00 DIS Emergency FLORECITA DOMELANIE [facility] ER FS HEADACHE [id number] 08/03/2019 19:30:00 20:55:00 DIS Emergency SUSANA LOPEZ MD [facility] ER FS HEADACHE [id number] 06/25/2019 00:00:00 00:47:00 DIS Emergency NEMO GALINDO MD [facility] ER FS MIGRAINE [id number] 06/24/2019 18:43:00 19:38:00 DIS Emergency JOSIE RESENDIZ, NEMO Waters [facility] ER FS MIGRAINE, N/V [id number] 06/15/2019 00:15:00 00:48:00 DIS Emergency DEVIN RESENDIZ, HENOK Mead [facility] ER FS HEADACHE/NAUSEA/VOMITTI NG [id number] 05/30/2019 17:25:00 18:36:00 DIS Emergency JOSIE RESENDIZ, NEMO Waters [facility] ER FS MIGRAINE [id number] 05/27/2019 18:38:00 19:28:00 DIS Emergency DEVIN RESENDIZ, HENOK Mead [facility] ER FS MIGRAINE SYMPTOMS [id number] 05/20/2019 18:38:00 19:20:00 DIS Emergency CANDI TOM DO [facility] ER FS HEADACHE [id number] 05/16/2019 18:57:00 19:30:00 DIS Emergency ROVENSTHERON SILVERMAN DO [facility] ER FS MIGRAINE [id number] 05/04/2019 22:14:00 23:07:00 DIS Emergency SUSANA LOPEZ MD [facility] ER FS MIGRAINE [id number] 04/21/2019 01:30:00 01:54:00 DIS Emergency JOSIE RESENDIZ, NEMO Waters [facility] ER FS HEADACHE,COUGH [id number] 04/12/2019 03:14:00 03:52:00 DIS Emergency SUSANA LOPEZ MD [facility] ER FS MIGRAINE SYMPTOMS [id number] 04/08/2019 00:35:00 01:59:00 DIS Emergency NEMO GALINDO MD [facility] ER FS MIGRAINE [id number] 03/19/2019 01:52:00 03:48:00 DIS Outpatient SUSANA LOPEZ MD [facility] ER FS SEVERE MIGRAINE [id number] 03/14/2019 16:52:00 17:38:00 DIS Emergency ROVENSTANDRA DO HERON Alyce [facility] ER FS HEADACHE [id number] 01/30/2019 11:34:00 13:44:00 DIS Emergency JOHN RESENDIZ, SUSANA Ramachandran [facility] ER FS HEADACHE; VOMITING [id number] 01/01/2019 10:21:00 11:30:00 DIS Emergency TRISTEN LANDRY DO [facility] ER FS HEADACHE [id number] 12/23/2018 18:47:00 20:51:00 DIS Emergency GUIDO DOVERONICA [facility] [facility] FS MIGRAINE [id number] 2018 15:36:00 16:30:00 DIS Emergency KATIA LIRIANO DO [facility] ER FS MIGRAINE;NAUSEA;VOMITIN G [id number] 10/31/2018 16:57:00 18:30:00 DIS Emergency JUSTIN RESENDIZ, JAXSON Mejia [facility] ER FS HEADACHE [id number] 10/24/2018 15:25:00 23:59:59 CLS Outpatient RAINA RESENDIZ, WENCESLAO Medina [facility] RAD FS M54.41 [id number] 08/22/2018 09:55:00 12:18:00 DIS Emergency FARHAT RESENDIZ, SABINA Burgos [facility] ER FS HEADACHE [id number] 08/21/2018 21:49:00 00:46:00 DIS Emergency JOEL ELLIOTT DO [facility] ER FS MIGRAINE, NAUSEA, SENSI TIVE TO LIGHT AND SMELLS [id number] 02/06/2020 18:08:[address] Emergency DEVIN RESENDIZ, HENOK Mead [facility] ER FS MIGRIANE,VOMITING [id number] 07/01/2016 14:22:44 ACT Document Registration
[2020-02-06 18:49] LABS: HEMATOCRIT 45 % (35-52); HEMOGLOBIN 16.4 G/DL (11.5-16.0); MEAN CORPUSCULAR HEMOGLOBIN 31 PG (25-34); MEAN CORPUSCULAR HGB CONC 37 G/DL (32-36); MEAN CORPUSCULAR VOLUME 86 FL (80-99); PLATELET COUNT 205 10^3/uL (130-400); RED CELL DISTRIBUTION WIDTH 11.3 % (10.0-14.5); WHITE BLOOD COUNT 6.5 10^3/uL (4.3-11.0)
[2020-02-06 18:50] LABS: BASOPHILS % (AUTO) 1 % (0-10); EOSINOPHILS % (AUTO) 1 % (0-10); LYMPHOCYTES # (AUTO) 1.2 X 10^3 (1.0-4.0); LYMPHOCYTES % (AUTO) 18 % (12-44); MEAN PLATELET VOLUME 9.2 FL (7.4-10.4); MONOCYTES # (AUTO) 0.5 X 10^3 (0.0-1.0); MONOCYTES % (AUTO) 8 % (0-12); NEUTROPHILS # (AUTO) 4.7 X 10^3 (1.8-7.8); NEUTROPHILS % (AUTO) 72 % (42-75)
[2020-02-06 19:09] LABS: CHLORIDE 99 MMOL/L (98-107); SODIUM 139 MMOL/L (135-145)
[2020-02-06 19:10] LABS: ALANINE AMINOTRANSFERASE 14 U/L (0-55); ALKALINE PHOSPHATASE 83 U/L (40-136); BILIRUBIN,TOTAL 1.2 MG/DL (0.1-1.0); BUN/CREATININE RATIO 15; CALCIUM 10.1 MG/DL (8.5-10.1); CARBON DIOXIDE 23 MMOL/L (21-32); CREATININE SERUM 0.79 MG/DL (0.60-1.30); GFR ESTIMATED > 60; GLUCOSE 105 MG/DL (70-105); TOTAL PROTEIN 7.5 GM/DL (6.4-8.2)
[2020-02-06 19:30] VITALS: BP 144/68
[2020-02-06] MEDS ORDERED: diphenhydrAMINE 50 MG/ML INJ (BENADRYL) IVP ONE (19:30)
== END 2020-02-06 19:31 | disposition home or self-care (01) ==
LOC: EDUNIT# 18:07 → ER FS 18:08
DX: G44.209 Tension-type headache, unspecified, not intractable (principal); F41.9 Anxiety disorder, unspecified; Z88.2 Allergy status to sulfonamides; Z88.1 Allergy status to other antibiotic agents; Z88.8 Allergy status to other drugs, medicaments and biological substances; Z88.5 Allergy status to narcotic agent; Z86.69 Personal history of other diseases of the nervous system and sense organs
CPT/HCPCS: 36415; 80053; 85025

== ENCOUNTER 2020-03-19 07:25 | Emergency (ER) | payer MEDICARE ==
[~2020-03-19] VITALS: Ht 170.2 cm; Wt 67.4 kg
[2020-03-19 07:35] VITALS: BP 121/69
[2020-03-19] MEDS ORDERED: PROMETHAZINE INJ 25 MG/ML (PHENERGAN) AMP IM ONE (07:45)
[2020-03-19] MEDS ORDERED: KETOROLAC 60 MG/2 ML VIAL IM ONE (07:45)
[2020-03-19] MEDS ORDERED: diphenhydrAMINE 50 MG/ML INJ (BENADRYL) IM ONE (07:45)
--- NOTE | 2020-03-19 07:50 | ED Headache ---
General Chief Complaint: Head/Cervical Problems Stated Complaint: HEADACHE; N/V Nursing Triage Note: Patient reports she was at her son's track meet yesterday and states she became overheated, triggering a migraine. She reports taking benadryl, ativan, ibprofen, and flexeril at home last night, then began having nausea and vomiting, so was unable to take anything by mouth. Nursing Sepsis Screen: No Definite Risk Source: patient Exam Limitations: no limitations History of Present Illness Date Seen by Provider: Mar 19, 2020 Time Seen by Provider: 07:35 Initial Comments The patient is a pleasant 39-year-old female who presents for evaluation of a migraine which started yesterday and is similar to previous migraines. This is the patient's 33rd emergency room visit within the last 12 months for migraines. She saw her neurologist, who works in [facility], in December most recently and is scheduled to see her again in March. Apparently they're planning to do some Botox injections at that time. She says the pain started on the left side and is radiating to the front and this is typical of her previous migraines. She believes the trigger for this migraine was going to her son's track meet yesterday and being in the hot sun as this has been a trigger in the past. She denies fevers or chills, neck pain or neck stiffness, chest pain or shortness of breath, vomiting, recent head trauma, vision changes, focal weakness or numb ness, dizziness or syncope. She is alert and oriented 4, calm, and appears to be in no distress at this time. Timing/Duration: 24 hours Severity/Quality: moderate Location: frontal, temporal (left) Prior Headaches/Recent Trauma: frequent headaches, chronic headaches Modifying Factors: improves with exposure to light (makes it worse) Associated Symptoms: nausea/vomiting (mild nausea, no vomiting) Allergies and Home Medications Allergies Coded Allergies: Sulfa (Sulfonamide Antibiotics) (Verified Allergy, Mild, Itching, 03/14/19) cefuroxime (Verified Allergy, Unknown, 08/21/18) haloperidol (Verified Allergy, Unknown, 10/31/18) magnesium (Verified Allergy, Unknown, 08/21/18) prochlorperazine (Verified Allergy, Unknown, rash, 08/21/18) topiramate (Verified Allergy, Unknown, 08/21/18) tramadol (Verified Allergy, Unknown, 10/31/18) Uncoded Allergies: DHE (Allergy, Unknown, 10/31/18) Home Medications Butalbital/Aspirin/Caffeine 1 Each Capsule, 1 EACH PO TID PRN for Headache Prescribed by: MELANIE CLAYTON on 09/02/19 185 Cyclobenzaprine HCl 10 Mg Tablet, 10 MG PO Q8H PRN for SPASMS Prescribed by: JAXSON ANDERSON on 10/31/18 181 Promethazine HCl 50 Mg Supp.rect, 50 MG RC Q8H Prescribed by: TRISTEN LANDRY on 11/29/19 1555 Patient Home Medication List Home Medication List Reviewed: Yes Review of Systems Review of Systems Constitutional: no symptoms reported Eyes: No Symptoms Reported Ears, Nose, Mouth, Throat: no symptoms reported Respiratory: no symptoms reported Cardiovascular: no symptoms reported Gastrointestinal: no symptoms reported Genitourinary: no symptoms reported Musculoskeletal: no symptoms reported Skin: no symptoms reported Psychiatric/Neurological: Headache All Other Systems Reviewed Negative Unless Noted: Yes Past Jpzmabs-Yheztm-Ccshmg Hx Past Med/Social Hx: Reviewed Nursing Past Med/Soc Hx Patient Social History Alcohol Use: Denies Use Recreational Drug Use: No Smoking Status: Never a Smoker 2nd Hand Smoke Exposure: No Recent Foreign Travel: No Contact w/Someone Who Travel: No Recent Infectious Disease Expo: No Recent Hopitalizations: No Physical Abuse: No Sexual Abuse: No Mistreated: No Fear: No Seasonal Allergies Seasonal Allergies: No Past Medical History Surgeries: Yes 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 Respiratory: No Cardiac: No Neurological: Yes Headaches /Migraines 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 oz. 70.320681me; 23.00 BMI Method:Stated General Appearance: WD/WN, no apparent distress HEENT: PERRL/EOMI, normal ENT inspection Neck: non-tender, full range of motion, supple, normal inspection Cardiovascular: regular rate, rhythm, no edema, no murmur Respiratory: lungs clear, normal breath sounds, no respiratory distress, no accessory muscle use Extremities: normal range of motion, normal inspection, no pedal edema Psychiatric: alert, oriented x 3 Crainal Nerves: normal hearing, normal speech, PERRL Coordination/Gait: normal gait; No abnormal gait Motor/Sensory: no motor deficit, no sensory deficit Skin: normal color, warm/dry Progress/Results/Core Measures Results/Orders My Orders Orders - VAISHALI CHRISTOPHER DO Promethazine Injection (Phenergan Injec (03/19/20 07:45) Diphenhydramine Injection (Benadryl Inje (03/19/20 07:45) Ketorolac Injection (Toradol Injection) (03/19/20 07:45) Vital Signs/I&O 03/19/20 07:35 Temp 35.8 Pulse 95 Resp 16 B/P (MAP) 121/69 (86) Pulse Ox 97 O2 Delivery Room Air Blood Pressure Mean: 86 Progress Progress Note : Progress Note @0800 - No red flags for serious headache etiology identified at this time. The patient appears comfortable. She states that she is feeling better after the medications and would like to go home. Advised follow-up with PCP and/or neurologist in the next 2-3 days. Departure Impression Primary Impression: Migraine Disposition: 01 HOME, SELF-CARE Condition: Stable Departure-Patient Inst. Decision time for Depature: 08:00 Referrals: SABINA VELOZ MD (PCP/Family) Primary Care Physician Patient Instructions: Migraine Headache (DC) Add. Discharge Instructions: Take Tylenol or ibuprofen at home for pain relief as needed. Return to the emergency department for new or worsening symptoms. Follow-up with your PCP and/or neurologist in the next 2-3 days. VAISHALI CHRISTOPHER DO Mar 19, 2020 07:49
== END 2020-03-19 08:00 | disposition home or self-care (01) ==
LOC: EDUNIT# 07:25 → ER FS 07:26
DX: G43.909 Migraine, unspecified, not intractable, without status migrainosus (principal); F41.9 Anxiety disorder, unspecified; Z88.2 Allergy status to sulfonamides; Z88.6 Allergy status to analgesic agent; Z88.1 Allergy status to other antibiotic agents; Z88.8 Allergy status to other drugs, medicaments and biological substances
CPT/HCPCS: 99284

== ENCOUNTER 2020-03-28 19:33 | Emergency (ER) | payer MEDICARE ==
[~2020-03-28] VITALS: Ht 170.2 cm; Wt 70.5 kg
[2020-03-28 19:40] VITALS: BP 137/68
--- NOTE | 2020-03-28 19:45 | NUR ---
Called [facility] to get number of visits in the last 2 weeks which they stated was 4 visits. Upon questioning by Dr Monte pt denied being seen in [place] ed.
--- NOTE | 2020-03-28 19:54 | ED Headache ---
General Chief Complaint: Head/Cervical Problems Stated Complaint: MIGRAINE Source: patient, RN notes reviewed, old records Exam Limitations: no limitations History of Present Illness Date Seen by Provider: Mar 28, 2020 Time Seen by Provider: 19:35 Initial Comments This patient presents to the emergency department is a 39-year-old female with complaint of chronic headaches. Patient is seen in the emergency Department regularly for her headaches. Patient states her PCP is Dr. Veloz but states she never follows up with him for her headaches. When asked about her headaches when last time she is 1 seen in the ER she said last time she was seen here was approximately 2 weeks ago. States that she has not been seen anywhere else either in [facility] which she has a history of history of visiting or urgent care. We did discuss at length with the staff at and reviewed records from [facility] according to medical records the patient has been seen now 2 times at this facility in the past 2 weeks and has been seen a total of 4 times at [facility] in the past 2 weeks. Unable to review records from urgent care. Patient has a long history of drug-seeking behavior related to her chronic headaches. Is on prescribed medications for the same. I did offer patient a full medical screening exam if she had any further issues patient declines. I advised the patient given the chronic nature of her headaches the patient should follow-up with her primary care physician and call tomorrow for scheduled appointment. Patient states understanding she'll be discharged home instructed to continue on all of her home medications. Timing/Duration: constant Severity/Quality: other Prior Headaches/Recent Trauma: chronic headaches Associated Symptoms: denies symptoms Allergies and Home Medications Allergies Coded Allergies: Sulfa (Sulfonamide Antibiotics) (Verified Allergy, Mild, Itching, 03/14/19) cefuroxime (Verified Allergy, Unknown, 08/21/18) haloperidol (Verified Allergy, Unknown, 10/31/18) magnesium (Verified Allergy, Unknown, 08/21/18) prochlorperazine (Verified Allergy, Unknown, rash, 08/21/18) topiramate (Verified Allergy, Unknown, 08/21/18) tramadol (Verified Allergy, Unknown, 10/31/18) Uncoded Allergies: DHE (Allergy, Unknown, 10/31/18) Home Medications Butalbital/Aspirin/Caffeine 1 Each Capsule, 1 EACH PO TID PRN for Headache Prescribed by: MELANIE CLAYTON on 09/02/19 1856 Cyclobenzaprine HCl 10 Mg Tablet, 10 MG PO Q8H PRN for SPASMS Prescribed by: JAXSON ANDERSON on 10/31/181809 Promethazine HCl 50 Mg Supp.rect, 50 MG RC Q8H Prescribed by: TRISTEN LANDRY on 11/29/19 6105 Patient Home Medication List Home Medication List Reviewed: Yes Review of Systems Review of Systems Constitutional: No no symptoms reported; see HPI; No chills, No diaphoresis, No dizziness, No fever, No malaise, No weakness, No weight gain, No weight loss, No other Eyes: Denies No Symptoms Reported, Denies See HPI, Denies Blindness, Denies Blurred Vision, Denies Drainage, Denies Decreased Acuity, Denies Foreign Body Sensation, Denies Inflammation, Denies Pain, Denies Photophobia, Denies Previous Injury, Denies Shadows, Denies Tunnel Vision, Denies Vision Changes, Denies Contact Lenses, Denies Glasses, Denies Other Ears, Nose, Mouth, Throat: denies no symptoms reported, denies see HPI, denies ear pain, denies ear discharge, denies nose pain, denies nose discharge, denies epistaxis, denies mouth pain, denies mouth swelling, denies loose teeth, denies throat pain, denies throat swelling Respiratory: No no symptoms reported, No see HPI, No cough, No dyspnea on exertion, No hemoptysis, No orthopnea, No phlegm, No short of breath, No stridor, No wheezing, No other Cardiovascular: No no symptoms reported, No see HPI, No chest pain, No edema, No Hx of Intervention, No palpitations, No syncope, No vascular heart diseas, No other Gastrointestinal: No RUQ, No LUQ, No RLQ, No LLQ, No no symptoms reported, No see HPI, No abdominal pain, No constipation, No diarrhea, No dysphagia, No hematemesis, No heartburn, No jaundice, No loss of appetite, No melena, No nausea, No vomiting, No other Genitourinary: No no symptoms reported, No see HPI, No decreased output, No discharge, No dysuria, No frequency, No hematuria, No hesitancy, No incontinence, No nocturia, No pain, No other Musculoskeletal: No no symptoms reported, No see HPI, No back pain, No gout, No joint pain, No joint swelling, No muscle pain, No muscle stiffness, No muscle cramps, No muscle twitching, No muscle weakness, No neck pain, No other Psychiatric/Neurological: See HPI, Headache All Other Systems Reviewed Negative Unless Noted: Yes Past Cxrfyxr-Cpfuxl-Jmemsv Hx Patient Social History 2nd Hand Smoke Exposure: No Recent Foreign Travel: No Contact w/Someone Who Travel: No Recent Hopitalizations: No Seasonal Allergies Seasonal Allergies: No Past Medical History Surgeries: Yes 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 Respiratory: No Cardiac: No Neurological: Yes 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 oz. 70.087215qt; 23.00 BMI Method:Stated General Appearance: WD/WN, no apparent distress Neck: non-tender, full range of motion, supple, normal inspection Cardiovascular: normal peripheral pulses, regular rate, rhythm, no edema, no gallop, no JVD, no murmur Respiratory: chest non-tender, lungs clear, normal breath sounds, no respiratory distress, no accessory muscle use Gastrointestinal: normal bowel sounds, non tender, soft, no organomegaly, no pulsatile mass Skin: normal color, warm/dry Progress/Results/Core Measures Progress Progress Note : Time: 19:52 Progress Note This patient presents to the emergency department is a 39-year-old female with complaint of chronic headaches. Patient is seen in the emergency Department regularly for her headaches. Patient states her PCP is Dr. Veloz but states she never follows up with him for her headaches. When asked about her headaches when last time she is 1 seen in the ER she said last time she was seen here was approximately 2 weeks ago. States that she has not been seen anywhere else either in [facility] which she has a history of history of visiting or urgent care. We did discuss at length with the staff at and reviewed records from [facility] according to medical records the patient has been seen now 2 times at this facility in the past 2 weeks and has been seen a total of 4 times at [facility] in the past 2 weeks. Unable to review records from urgent care. Patient has a long history of drug-seeking behavior related to her chronic headaches. Is on prescribed medications for the same. I did offer patient a full medical screening exam if she had any further issues patient declines. I advised the patient given the chronic nature of her headaches the patient should follow-up with her primary care physician and call tomorrow for scheduled appointment. Patient states understanding she'll be discharged home instructed to continue on all of her home medications. This patient does not appear to be in acute distress or pain. Departure Impression Primary Impression: Chronic headaches Additional Impression: Drug-seeking behavior Disposition: 01 HOME, SELF-CARE Condition: Stable Departure-Patient Inst. Decision time for Depature: 19:53 Referrals: SABINA VELOZ MD (PCP/Family) Primary Care Physician Patient Instructions: Home Headache Remedies Add. Discharge Instructions: Continue all home medications for your chronic headaches. Follow-up your primary care physician for referral for possible neurology evaluation due to your chronic issues. All discharge instructions reviewed with patient and/or family. Voiced understanding. MELANIE CLAYTON MD Mar 28, 2020 19:53
== END 2020-03-28 19:55 | disposition home or self-care (01) ==
LOC: EDUNIT# 19:33 → ER FS 19:35
DX: R51.9 Headache, unspecified (principal); F41.9 Anxiety disorder, unspecified; Z76.5 Malingerer [conscious simulation]; Z88.2 Allergy status to sulfonamides; Z88.1 Allergy status to other antibiotic agents; Z88.8 Allergy status to other drugs, medicaments and biological substances; Z88.5 Allergy status to narcotic agent; Z86.69 Personal history of other diseases of the nervous system and sense organs
CPT/HCPCS: 99282

== ENCOUNTER 2020-05-08 23:38 | Emergency (ER) | payer MEDICARE ==
[~2020-05-08] VITALS: Ht 170.2 cm; Wt 68.0 kg
[2020-05-08 23:45] VITALS: BP 124/74
--- NOTE | 2020-05-09 00:09 | ED Headache ---
General Chief Complaint: Head/Cervical Problems Stated Complaint: EARACHE/MIGRAINE Source: patient History of Present Illness Date Seen by Provider: May 09, 2020 Time Seen by Provider: 23:55 Initial Comments 39 y/o female w chronic GROSSMAN's presents w onset of a migraine today. Has only taken Benadryl at home w no relief. + light sensitivity, throbbing GROSSMAN that hurts all over. Typical pattern without change in severity. Allergies and Home Medications Allergies Coded Allergies: Sulfa (Sulfonamide Antibiotics) (Verified Allergy, Mild, Itching, 03/14/19) cefuroxime (Verified Allergy, Unknown, 08/21/18) haloperidol (Verified Allergy, Unknown, 10/31/18) magnesium (Verified Allergy, Unknown, 08/21/18) prochlorperazine (Verified Allergy, Unknown, rash, 08/21/18) topiramate (Verified Allergy, Unknown, 08/21/18) tramadol (Verified Allergy, Unknown, 10/31/18) Uncoded Allergies: DHE (Allergy, Unknown, 10/31/18) Home Medications Butalbital/Aspirin/Caffeine 1 Each Capsule, 1 EACH PO TID PRN for Headache Prescribed by: MELANIE CLAYTON on 09/02/19 1856 Cyclobenzaprine HCl 10 Mg Tablet, 10 MG PO Q8H PRN for SPASMS Prescribed by: JAXSNO ANDERSON on 10/31/18 181 Promethazine HCl 50 Mg Supp.rect, 50 MG RC Q8H Prescribed by: TRISTEN LANDRY on 11/29/19 1555 Patient Home Medication List Home Medication List Reviewed: Yes Review of Systems Review of Systems Constitutional: No chills, No fever, No weakness Eyes: Denies Blurred Vision; Photophobia Ears, Nose, Mouth, Throat: no symptoms reported Respiratory: No cough, No short of breath Cardiovascular: No chest pain, No syncope Musculoskeletal: No back pain, No neck pain Psychiatric/Neurological: See HPI, Headache; Denies Numbness, Denies Paresthesia Past Vanshmj-Avhljz-Meskze Hx Past Med/Social Hx: Reviewed Nursing Past Med/Soc Hx Patient Social History Alcohol Use: Denies Use Recreational Drug Use: No Smoking Status: Never a Smoker 2nd Hand Smoke Exposure: No Recent Foreign Travel: No Contact w/Someone Who Travel: No Recent Hopitalizations: No Physical Abuse: No Sexual Abuse: No Mistreated: No Fear: No Seasonal Allergies Seasonal Allergies: No Past Medical History Surgeries: Yes 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 Respiratory: No Cardiac: No Neurological: Yes Headaches /Migraines 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 oz. 70.765870xd; 24.00 BMI Method:Stated General Appearance: WD/WN, no apparent distress HEENT: PERRL/EOMI, normal ENT inspection Neck: non-tender, supple Psychiatric: alert, oriented x 3, depressed affect Crainal Nerves: normal hearing, normal speech, PERRL Coordination/Gait: normal finger to nose, normal gait Motor/Sensory: no motor deficit, no sensory deficit Skin: normal color, warm/dry Progress/Results/Core Measures Results/Orders My Orders Orders - HERON PERLA DO Ketorolac Injection (Toradol Injection) (05/09/20 00:15) Promethazine Injection (Phenergan Injec (05/09/20 00:15) Vital Signs/I&O 05/08/20 23:45 Temp 35.7 Pulse 81 Resp 16 B/P (MAP) 124/74 (91) Pulse Ox 99 O2 Delivery Room Air Departure Impression Primary Impression: Migraine Qualified Codes: G43.909 - Migraine, unspecified, not intractable, without status migrainosus Additional Impression: Chronic headaches Qualified Codes: R51 - Headache Disposition: 01 HOME, SELF-CARE Condition: Stable Departure-Patient Inst. Decision time for Depature: 00:05 Referrals: SABINA VELOZ MD (PCP/Family) Primary Care Physician Patient Instructions: Migraine Headache (DC) Add. Discharge Instructions: see Dr Veloz next week for re-evaluation of your persistent migraine headaches All discharge instructions reviewed with patient and/or family. Voiced understanding. HERON PERLA DO May 09, 2020 00:09
[2020-05-09] MEDS ORDERED: KETOROLAC 60 MG/2 ML VIAL ONE (00:10)
[2020-05-09] MEDS ORDERED: PROMETHAZINE INJ 25 MG/ML (PHENERGAN) AMP ONE (00:10)
[2020-05-09] MEDS ORDERED: PROMETHAZINE INJ 25 MG/ML (PHENERGAN) AMP IM/IV ONE (00:15)
[2020-05-09] MEDS ORDERED: KETOROLAC 60 MG/2 ML VIAL IM ONE (00:15)
== END 2020-05-09 00:21 | disposition home or self-care (01) ==
LOC: EDUNIT# 23:38 → ER FS 23:42
DX: G43.909 Migraine, unspecified, not intractable, without status migrainosus (principal); Z88.2 Allergy status to sulfonamides; Z88.1 Allergy status to other antibiotic agents; Z88.6 Allergy status to analgesic agent; Z88.8 Allergy status to other drugs, medicaments and biological substances; Z79.82 Long term (current) use of aspirin
CPT/HCPCS: 99284

== ENCOUNTER 2020-06-07 07:00 | Emergency (ER) | payer MEDICARE ==
[~2020-06-07 07:00] MED LIST changes: -CLIN300C11; +CLIN300C12
[2020-06-07 07:09] VITALS: BP 104/71
[2020-06-07] MEDS ORDERED: LACTATED RINGERS 1,000 ML IV STA (07:17)
[2020-06-07] MEDS ORDERED: KETOROLAC 30 MG/ML VIAL IVP STA (07:17)
[2020-06-07] MEDS ORDERED: METOCLOPRAMIDE INJ 10 MG/2 ML (REGLAN) IVP STA (07:17)
--- NOTE | 2020-06-07 07:17 | ED Headache ---
General Chief Complaint: Head/Cervical Problems Stated Complaint: HEADACHE Source: patient Exam Limitations: no limitations History of Present Illness Date Seen by Provider: Jun 07, 2020 Time Seen by Provider: 07:12 Initial Comments 39-year-old female presents with chronic migraine/headaches. Patient has numerous visits for similar symptoms. Patient reports that it started about 2 days ago. That the last medication she took was about 7 hours ago with the Benad ryl. 2 days ago she tried multiple other medications with minimal relief. Patient reports that she gets Botox every 3 months and the last was about 3 months ago. Patient has photophobia, nausea vomiting. Her headache is typical of her previous headaches. Allergies and Home Medications Allergies Coded Allergies: Sulfa (Sulfonamide Antibiotics) (Verified Allergy, Mild, Itching, 03/14/19) cefuroxime (Verified Allergy, Unknown, 08/21/18) haloperidol (Verified Allergy, Unknown, 10/31/18) magnesium (Verified Allergy, Unknown, 08/21/18) prochlorperazine (Verified Allergy, Unknown, rash, 08/21/18) topiramate (Verified Allergy, Unknown, 08/21/18) tramadol (Verified Allergy, Unknown, 10/31/18) Uncoded Allergies: DHE (Allergy, Unknown, 10/31/18) Home Medications Butalbital/Aspirin/Caffeine 1 Each Capsule, 1 EACH PO TID PRN for Headache Prescribed by: MELANEI CLAYTON on 09/02/19 185 Cyclobenzaprine HCl 10 Mg Tablet, 10 MG PO Q8H PRN for SPASMS Prescribed by: JAXSON ANDERSON on 10/31/18 181 Promethazine HCl 50 Mg Supp.rect, 50 MG RC Q8H Prescribed by: TRISTEN LANDRY on 11/29/19 1555 Patient Home Medication List Home Medication List Reviewed: Yes Review of Systems Review of Systems Constitutional: No chills, No fever Eyes: Photophobia Ears, Nose, Mouth, Throat: no symptoms reported Respiratory: No cough, No short of breath Cardiovascular: No chest pain, No palpitations Gastrointestinal: nausea, vomiting Musculoskeletal: no symptoms reported Skin: no symptoms reported Psychiatric/Neurological: See HPI, Headache Past Gvaxteu-Vmgqaa-Teyilh Hx Past Med/Social Hx: Reviewed Nursing Past Med/Soc Hx Patient Social History Alcohol Use: Denies Use Recreational Drug Use: No Smoking Status: Never a Smoker 2nd Hand Smoke Exposure: No Recent Foreign Travel: No Contact w/Someone Who Travel: No Recent Hopitalizations: No Physical Abuse: No Sexual Abuse: No Mistreated: No Fear: No Seasonal Allergies Seasonal Allergies: No Past Medical History Surgeries: Yes 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 Respiratory: No Cardiac: No Neurological: Yes Headaches /Migraines 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 oz. 70.942467mk; 23.00 BMI Method:Stated General Appearance: mild distress HEENT: PERRL/EOMI, pharynx normal Neck: supple, normal inspection Cardiovascular: normal peripheral pulses, regular rate, rhythm Respiratory: chest non-tender, lungs clear, normal breath sounds, no respiratory distress Gastrointestinal: non tender, soft Extremities: normal range of motion, non-tender Psychiatric: alert, oriented x 3 Crainal Nerves: normal hearing, normal speech, PERRL Coordination/Gait: normal gait Motor/Sensory: no motor deficit Skin: normal color, warm/dry Progress/Results/Core Measures Results/Orders My Orders Orders - LITZY WHEELER DO Ketorolac Injection (Toradol Injection) (06/07/20 07:17) Metoclopramide Injection (Reglan Injecti (06/07/20 07:27) Vital Signs/I&O 06/07/20 07:09 Temp 36.4 Pulse 102 Resp 16 B/P (MAP) 104/71 (82) Pulse Ox 99 Departure Impression Primary Impression: Chronic headaches Qualified Codes: R51 - Headache Disposition: 01 HOME, SELF-CARE Condition: Stable Departure-Patient Inst. Referrals: SABINA VELOZ MD (PCP/Family) Primary Care Physician Patient Instructions: Migraines (DC), Tension Headache (DC) Add. Discharge Instructions: Follow-up with Dr. Veloz within the next couple days for further evaluation of your chronic headaches All discharge instructions reviewed with patient and/or family. Voiced under standing. LITZY WHEELER DO Jun 07, 2020 07:17
[2020-06-07] MEDS ORDERED: METOCLOPRAMIDE INJ 10 MG/2 ML (REGLAN) IM/IV STA (07:27)
== END 2020-06-07 07:56 | disposition home or self-care (01) ==
LOC: EDUNIT# 07:00 → ER FS 07:03
DX: R51.9 Headache, unspecified (principal); Z88.2 Allergy status to sulfonamides; Z88.5 Allergy status to narcotic agent; Z88.1 Allergy status to other antibiotic agents; Z88.8 Allergy status to other drugs, medicaments and biological substances; Z79.82 Long term (current) use of aspirin
CPT/HCPCS: 99284

== ENCOUNTER 2020-06-19 16:47 | Emergency (ER) | payer MEDICARE ==
--- NOTE | 2020-06-19 17:18 | ED Headache ---
General Chief Complaint: Head/Cervical Problems Stated Complaint: HEADACHE Nursing Triage Note: Pt complaining of a headache that started early this morning Nursing Sepsis Screen: No Definite Risk Source: patient History of Present Illness Date Seen by Provider: Jun 19, 2020 Time Seen by Provider: 17:18 Initial Comments 39 yo female presenting with complaints of recurrent migraine headache that started this am. She denies fever or chills. She states she has had left sided headache similar to prior migraines. It seemed to be brought on by stress and not sleeping as much in last few days due to family matters and the holidays. She also felt that wrapping presents triggered some issues with tension in her neck and back. She has light and sound sensitivity. She states this feels like her usual migraines. She tried Stadol at home this am but it was not helping. She has not been able to keep anything down at home. She states that when her symptoms are like this she usually has to get Toradol 60 mg, Benadryl 50 mg and Phenergan 50 mg to control her symptoms and help her rest. Allergies and Home Medications Allergies Coded Allergies: Sulfa (Sulfonamide Antibiotics) (Verified Allergy, Mild, Itching, 03/14/19) cefuroxime (Verified Allergy, Unknown, 08/21/18) haloperidol (Verified Allergy, Unknown, 10/31/18) magnesium (Verified Allergy, Unknown, 08/21/18) prochlorperazine (Verified Allergy, Unknown, rash, 08/21/18) topiramate (Verified Allergy, Unknown, 08/21/18) tramadol (Verified Allergy, Unknown, 10/31/18) Uncoded Allergies: DHE (Allergy, Unknown, 10/31/18) Home Medications Butalbital/Aspirin/Caffeine 1 Each Capsule, 1 EACH PO TID PRN for Headache Prescribed by: MELANIE CLAYTON on 09/02/19 185 Cyclobenzaprine HCl 10 Mg Tablet, 10 MG PO Q8H PRN for SPASMS Prescribed by: JAXSON ANDERSON on 10/31/181809 Promethazine HCl 50 Mg Supp.rect, 50 MG RC Q8H Prescribed by: TRISTEN LANDRY on 11/29/19 1555 Patient Home Medication List Home Medication List Reviewed: Yes Review of Systems Review of Systems Constitutional: No chills, No fever Eyes: See HPI Ears, Nose, Mouth, Throat: no symptoms reported Respiratory: no symptoms reported Cardiovascular: no symptoms reported Gastrointestinal: see HPI Genitourinary: no symptoms reported Musculoskeletal: muscle stiffness (shoulders and upper back from wrapping presents) Skin: no symptoms reported; No rash Psychiatric/Neurological: See HPI, Anxiety, Headache (similar to prior migraine headaches) Past Egpbtpa-Dtdhxz-Yhmkap Hx Past Med/Social Hx: Reviewed Nursing Past Med/Soc Hx Patient Social History Alcohol Use: Denies Use Recreational Drug Use: No 2nd Hand Smoke Exposure: No Recent Foreign Travel: No Contact w/Someone Who Travel: No Recent Infectious Disease Expo: No Recent Hopitalizations: No Physical Abuse: No Sexual Abuse: No Seasonal Allergies Seasonal Allergies: No Past Medical History Surgeries: Yes 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 Respiratory: No Cardiac: No Neurological: Yes 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 oz. 70.613191eq; 23.00 BMI Method:Stated General Appearance: WD/WN, moderate distress HEENT: PERRL/EOMI, other (wearing sunglasses) Cardiovascular: regular rate, rhythm Respiratory: lungs clear, normal breath sounds Psychiatric: alert, oriented x 3, other (anxious) Crainal Nerves: normal hearing, normal speech Coordination/Gait: normal gait Skin: normal color, warm/dry Progress/Results/Core Measures Results/Orders My Orders Orders - SUSANA LOPEZ MD Ketorolac Injection (Toradol Injection) (06/19/20 17:30) Diphenhydramine Injection (Benadryl Inje (06/19/20 17:30) Promethazine Injection (Phenergan Injec (06/19/20 17:30) Vital Signs/I&O 06/19/20 06/19/20 16:53 17:40 Temp 37.2 37.2 Pulse 87 87 Resp 16 16 B/P (MAP) 144/62 (89) 144/62 (89) Pulse Ox 99 99 O2 Delivery Room Air Blood Pressure Mean: 89 Progress Progress Note : Progress Note as she has no acute abnormality on exam or vitals different than her usual and this feels like her typical migraine headache will try the IM medications that have helped in the past and have her check back with pcp this next week. Departure Impression Primary Impression: Migraine Qualified Codes: G43.009 - Migraine without aura, not intractable, without status migrainosus Disposition: HOME, SELF-CARE Condition: Stable Departure-Patient Inst. Decision time for Depature: 17:32 Referrals: SABINA VELOZ MD (PCP/Family) Primary Care Physician Patient Instructions: Migraines (DC) Add. Discharge Instructions: Rest in a cool dark room. Continue your regular medicines. Follow up with Dr. Veloz this next week about your headaches All discharge instructions reviewed with patient and/or family. Voiced understanding. SUASNA LOPEZ MD Jun 19, 2020 17:18
[2020-06-19] MEDS ORDERED: diphenhydrAMINE 50 MG/ML INJ (BENADRYL) IM STA (17:30)
[2020-06-19] MEDS ORDERED: KETOROLAC 60 MG/2 ML VIAL IM STA (17:30)
[2020-06-19] MEDS ORDERED: PROMETHAZINE INJ 25 MG/ML (PHENERGAN) AMP IM STA (17:30)
[2020-06-19 17:40] VITALS: BP 144/62
== END 2020-06-19 17:41 | disposition home or self-care (01) ==
LOC: EDUNIT# 16:47 → ER FS 16:48
DX: G43.909 Migraine, unspecified, not intractable, without status migrainosus (principal); F41.9 Anxiety disorder, unspecified; Z88.2 Allergy status to sulfonamides; Z88.1 Allergy status to other antibiotic agents; Z88.8 Allergy status to other drugs, medicaments and biological substances; Z88.5 Allergy status to narcotic agent; Z79.82 Long term (current) use of aspirin
CPT/HCPCS: 99284

== ENCOUNTER 2020-08-14 11:15 | Emergency (ER) | payer MEDICARE ==
[2020-08-14 11:23] VITALS: BP 131/71
[2020-08-14] MEDS ORDERED: KETOROLAC 60 MG/2 ML VIAL IM STA (11:36)
[2020-08-14] MEDS ORDERED: diphenhydrAMINE 50 MG/ML INJ (BENADRYL) IM STA (11:36)
[2020-08-14] MEDS ORDERED: PROMETHAZINE INJ 25 MG/ML (PHENERGAN) AMP IM STA (11:36)
--- NOTE | 2020-08-14 11:52 | ED Headache ---
General Chief Complaint: Head/Cervical Problems Stated Complaint: MIGRAINE Nursing Triage Note: headache, nausea, vomiting, and dizzyness since 0400 this morning. Has taken excedrin, benadryl, flexeril, and ativan with no relief. Pain currently rated at 8/10. Nursing Sepsis Screen: No Definite Risk Source: patient, spouse History of Present Illness Date Seen by Provider: Aug 14, 2020 Time Seen by Provider: 11:31 Initial Comments 39-year-old female complaining of migraine headache that started yesterday for her and got worse since 4 AM this morning. She states it feels similar to headaches that she has had in the past but is more on the right side of her head. She had been experiencing fewer migraine headaches in the last few months. She was seen June 07, June 19, July 08, July 29 and then today. She had been trying her home medications and resting in a cool dark room but was still having pain. She did have Botox injections at the end of June. She has had dry heaves but no actual vomiting. She denies any fever or chills at home. She has no change in her vision but does have photophobia. Allergies and Home Medications Allergies Coded Allergies: Sulfa (Sulfonamide Antibiotics) (Verified Allergy, Mild, Itching, 03/14/19) cefuroxime (Verified Allergy, Unknown, 08/21/18) haloperidol (Verified Allergy, Unknown, 10/31/18) magnesium (Verified Allergy, Unknown, 08/21/18) prochlorperazine (Verified Allergy, Unknown, rash, 08/21/18) topiramate (Verified Allergy, Unknown, 08/21/18) tramadol (Verified Allergy, Unknown, 10/31/18) Uncoded Allergies: DHE (Allergy, Unknown, 10/31/18) Home Medications Butalbital/Aspirin/Caffeine 1 Each Capsule, 1 EACH PO TID PRN for Headache Prescribed by: MELANIE CLAYTON on 09/02/19 185 Cyclobenzaprine HCl 10 Mg Tablet, 10 MG PO Q8H PRN for SPASMS Prescribed by: JAXSON ANDERSON on 10/31/18 181 Promethazine HCl 50 Mg Supp.rect, 50 MG RC Q8H Prescribed by: TRISTEN LANDRY on 11/29/19 1555 Patient Home Medication List Home Medication List Reviewed: Yes Review of Systems Review of Systems Constitutional: No chills, No fever Eyes: Photophobia Ears, Nose, Mouth, Throat: no symptoms reported Respiratory: no symptoms reported Cardiovascular: no symptoms reported Gastrointestinal: nausea, vomiting (Dry heaves) Genitourinary: no symptoms reported Musculoskeletal: no symptoms reported Skin: No rash Psychiatric/Neurological: Anxiety, Headache (Migraine headache typical for her) Past Vtxsxef-Xwadxu-Gxopny Hx Past Med/Social Hx: Reviewed Nursing Past Med/Soc Hx Patient Social History Alcohol Use: Denies Use Smoking Status: Never a Smoker 2nd Hand Smoke Exposure: No Recent Infectious Disease Expo: No Recent Hopitalizations: No Seasonal Allergies Seasonal Allergies: No Past Medical History Surgeries: Yes 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 Respiratory: No Cardiac: No 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 oz. 70.982496vp; 23.00 BMI Method:Stated General Appearance: WD/WN, moderate distress HEENT: PERRL/EOMI, pharynx normal Neck: full range of motion, supple, other (Tender right trapezius muscle up onto her neck with tension and muscle spasm) Cardiovascular: normal peripheral pulses, regular rate, rhythm Respiratory: chest non-tender, lungs clear, normal breath sounds, no respir atory distress, no accessory muscle use Gastrointestinal: normal bowel sounds, soft, no pulsatile mass Extremities: normal range of motion, normal capillary refill Psychiatric: alert, oriented x 3 Crainal Nerves: normal hearing, normal speech, PERRL Coordination/Gait: normal gait Motor/Sensory: no motor deficit, no sensory deficit Skin: normal color, warm/dry; No rash Progress/Results/Core Measures Results/Orders My Orders Orders - SUSANA LOPEZ MD Ketorolac Injection (Toradol Injection) (08/14/20 11:36) Promethazine Injection (Phenergan Injec (2/20/21 11:36) Diphenhydramine Injection (Benadryl Inje (08/14/20 11:36) Vital Signs/I&O 08/14/20 11:23 Pulse 103 Resp 16 B/P (MAP) 131/71 (91) Pulse Ox 98 Blood Pressure Mean: 91 Progress Progress Note : Progress Note With her saying that this feels like her typical migraine headaches in the past although it is more on the right side will treat with medications like she has received in the past. Give Toradol 60 mg, Phenergan 50 mg, Benadryl 50 mg all intramuscular. Discharged to rest in a cool dark room. Counseled to follow-up with primary as well as neurologist that did the Botox injections. She was somewhat concerned that some of the pain was more around the sites of the Botox injections. There is no focal neurological deficits on her physical exam. Departure Impression Primary Impression: Migraine headache without aura Qualified Codes: G43.009 - Migraine without aura, not intractable, without status migrainosus Disposition: 01 HOME, SELF-CARE Condition: Stable Departure-Patient Inst. Decision time for Depature: 11:51 Referrals: SABINA VELOZ MD (PCP/Family) Primary Care Physician Patient Instructions: Home Headache Remedies, Migraines in Adults Add. Discharge Instructions: Rest in a cool dark room Try to stay well hydrated. Continue on your regular medicines. Follow up with Dr. Veloz and with your neurologist All discharge instructions reviewed with patient and/or family. Voiced understanding. SUSANA LOPEZ MD Aug 14, 2020 11:52
== END 2020-08-14 12:06 | disposition home or self-care (01) ==
LOC: EDUNIT# 11:15 → ER FS 11:16
DX: G43.009 Migraine without aura, not intractable, without status migrainosus (principal); F41.9 Anxiety disorder, unspecified; Z88.5 Allergy status to narcotic agent; Z88.2 Allergy status to sulfonamides; Z88.1 Allergy status to other antibiotic agents; Z88.8 Allergy status to other drugs, medicaments and biological substances; Z79.82 Long term (current) use of aspirin
CPT/HCPCS: 99284

== ENCOUNTER 2020-09-12 21:26 | Emergency (ER) | payer MEDICARE ==
[~2020-09-12] VITALS: Ht 170.2 cm; Wt 68.0 kg
[2020-09-12] MEDS ORDERED: diphenhydrAMINE 50 MG/ML INJ (BENADRYL) IM STA (21:32)
[2020-09-12] MEDS ORDERED: KETOROLAC 60 MG/2 ML VIAL IM STA (21:32)
[2020-09-12] MEDS ORDERED: PROMETHAZINE INJ 25 MG/ML (PHENERGAN) AMP IM STA (21:32)
--- NOTE | 2020-09-12 21:34 | ED Headache ---
General Stated Complaint: HEAEDACHE/VOMITING Source: patient History of Present Illness Date Seen by Provider: Sep 12, 2020 Time Seen by Provider: 21:27 Initial Comments 39 yo female presenting with left sided migraine headache present since Sunday night. Not sure if playing with her sons VR headset triggered it or what brought on the migraine but she was able to manage it with her meds on Sunday and Sunday. Today she has been in bed all day and had vomiting tonight. She had no fever or chills. She has pain on left side of head like her regular migraine headaches. She is also under extra stress because she wants to get Covid vaccine from her 's work and her son plays his first baseball game Sunday. Location: occipital (left side) Prior Headaches/Recent Trauma: no recent headache/trauma Modifying Factors: worse with exposure to light; improves with medication (somewhat) Associated Symptoms: No confusion; fatigue; No facial pain, No fever/chills, No flushing, No loss of consciousness; nausea/vomiting; No nasal congestion, No nasal drainage, No numbness in legs/feet, No rash, No seizures, No sinus infection, No stiff neck, No vision changes, No weakness Allergies and Home Medications Allergies Coded Allergies: Sulfa (Sulfonamide Antibiotics) (Verified Allergy, Mild, Itching, 03/14/19) cefuroxime (Verified Allergy, Unknown, 08/21/18) haloperidol (Verified Allergy, Unknown, 10/31/18) magnesium (Verified Allergy, Unknown, 08/21/18) prochlorperazine (Verified Allergy, Unknown, rash, 08/21/18) topiramate (Verified Allergy, Unknown, 08/21/18) tramadol (Verified Allergy, Unknown, 10/31/18) Uncoded Allergies: DHE (Allergy, Unknown, 10/31/18) Home Medications Butalbital/Aspirin/Caffeine 1 Each Capsule, 1 EACH PO TID PRN for Headache Prescribed by: MELANIE CLAYTON on 09/02/19 185 Cyclobenzaprine HCl 10 Mg Tablet, 10 MG PO Q8H PRN for SPASMS Prescribed by: JAXSON ANDERSON on 10/31/18 181 Promethazine HCl 50 Mg Supp.rect, 50 MG RC Q8H Prescribed by: TRISTEN LANDRY on 11/29/19 1555 Patient Home Medication List Home Medication List Reviewed: Yes Review of Systems Review of Systems Constitutional: see HPI Eyes: Photophobia Ears, Nose, Mouth, Throat: no symptoms reported Respiratory: no symptoms reported Cardiovascular: no symptoms reported Gastrointestinal: see HPI Genitourinary: no symptoms reported Musculoskeletal: neck pain (left side like typical migraine) Skin: No rash Psychiatric/Neurological: Headache (left sided occipital and neck like her typical migraine) Past Hoervmi-Asccmp-Otcvae Hx Past Med/Social Hx: Reviewed Nursing Past Med/Soc Hx Patient Social History 2nd Hand Smoke Exposure: No Recent Hopitalizations: No Seasonal Allergies Seasonal Allergies: No Past Medical History Surgeries: Yes 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 Respiratory: No Cardiac: No 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 oz. 70.141630lz; 23.00 BMI Method:Stated General Appearance: WD/WN, moderate distress (anxious and tearful) HEENT: PERRL/EOMI, normal ENT inspection, pharynx normal Neck: full range of motion, supple, other (left lateral neck spasm. no nuchal rigidity) Cardiovascular: normal peripheral pulses, regular rate, rhythm Respiratory: chest non-tender, lungs clear, normal breath sounds Gastrointestinal: normal bowel sounds, non tender, soft, no pulsatile mass Extremities: normal range of motion, normal capillary refill Psychiatric: alert, oriented x 3 Crainal Nerves: normal hearing, normal speech, PERRL Coordination/Gait: normal gait Motor/Sensory: no motor deficit, no sensory deficit Skin: normal color, warm/dry; No rash Progress/Results/Core Measures Results/Orders My Orders Orders - SUSANA LOPEZ MD Ketorolac Injection (Toradol Injection) (09/12/20 21:32) Promethazine Injection (Phenergan Injec (09/12/20 21:32) Diphenhydramine Injection (Benadryl Inje (09/12/20 21:32) Vital Signs/I&O 09/12/20 21:35 Temp 36.8 Pulse 78 Resp 16 B/P (MAP) 127/74 (91) O2 Delivery Room Air Progress Progress Note : Progress Note Since this feels like her typical migraine headache and she has no head trauma or fever then will give Toradol 60 mg IM, Benadryl 50 mg IM and Phenergan 50 mg IM like she has gotten last couple of visits as she reports that has helped her symptoms in past. counseled to follow up with clinci for continued problems Departure Impression Primary Impression: Migraine headache without aura Qualified Codes: G43.009 - Migraine without aura, not intractable, without status migrainosus Disposition: 01 HOME, SELF-CARE Condition: Stable Departure-Patient Inst. Decision time for Depature: 21:41 Referrals: SABINA VELOZ MD (PCP/Family) Primary Care Physician Patient Instructions: Migraines (DC) Add. Discharge Instructions: Rest in cool dark room Follow up with Dr. Veloz and your primary providers. Continue your regular medicines at home SUSANA LOPEZ MD Sep 12, 2020 21:34
[2020-09-12 21:35] VITALS: BP 127/74
== END 2020-09-12 21:51 | disposition home or self-care (01) ==
LOC: EDUNIT# 21:26 → ER FS 21:28
DX: G43.009 Migraine without aura, not intractable, without status migrainosus (principal); Z88.1 Allergy status to other antibiotic agents; Z88.2 Allergy status to sulfonamides; Z88.5 Allergy status to narcotic agent; Z88.8 Allergy status to other drugs, medicaments and biological substances
CPT/HCPCS: 99284

== ENCOUNTER 2020-09-26 09:41 | Emergency (ER) | payer MEDICARE ==
[~2020-09-26] VITALS: Ht 170.2 cm; Wt 68.0 kg
[2020-09-26 09:51] VITALS: BP 141/77
[2020-09-26] MEDS ORDERED: diphenhydrAMINE 50 MG/ML INJ (BENADRYL) IM ONE (10:15)
[2020-09-26] MEDS ORDERED: KETOROLAC 60 MG/2 ML VIAL IM ONE (10:15)
[2020-09-26] MEDS ORDERED: PROMETHAZINE INJ 25 MG/ML (PHENERGAN) AMP IM ONE (10:15)
--- NOTE | 2020-09-26 10:27 | ED Headache ---
General Chief Complaint: Head/Cervical Problems Stated Complaint: HEADACHE Nursing Triage Note: Patient reports her current migraine started on Sunday, states she has taken excedrin migraine, benadryl, ativan, stadol, a muscle relaxer, and zofran around 0100 this morning without relief. Nursing Sepsis Screen: No Definite Risk Source: patient Exam Limitations: no limitations History of Present Illness Date Seen by Provider: Sep 26, 2020 Time Seen by Provider: 09:55 Initial Comments Patient is a 39-year-old chronic migraines sufferer who presents with her typical migraine headache. Current headache started several days ago and is located left temporal region. Is associated with no photosensitivity. It is continuous, dull throbbing and described as moderate to severe. Patient is taking muscle relaxants, Benadryl, Ativan, Stadol and Excedrin Migraine prior to ED arrival with limited relief of symptoms. She is able to tolerate oral intake. She does not have any posterior midline neck pain, radicular symptoms. It is not the worst headache of the patient's life. Is not a sudden onset headache or thunderclap in nature. No neck stiffness fever, rash. No extremity weakness or loss of sensation. No other acute symptoms or complaints. Timing/Duration: other (Several days) Severity/Quality: other Location: other Modifying Factors: improves with other Associated Symptoms: other Allergies and Home Medications Allergies Coded Allergies: Sulfa (Sulfonamide Antibiotics) (Verified Allergy, Mild, Itching, 03/14/19) cefuroxime (Verified Allergy, Unknown, 08/21/18) haloperidol (Verified Allergy, Unknown, 10/31/18) magnesium (Verified Allergy, Unknown, 08/21/18) prochlorperazine (Verified Allergy, Unknown, rash, 08/21/18) topiramate (Verified Allergy, Unknown, 08/21/18) tramadol (Verified Allergy, Unknown, 10/31/18) Uncoded Allergies: DHE (Allergy, Unknown, 10/31/18) Home Medications Butalbital/Aspirin/Caffeine 1 Each Capsule, 1 EACH PO TID PRN for Headache Prescribed by: MELANIE CLAYTON on 09/02/19 185 Cyclobenzaprine HCl 10 Mg Tablet, 10 MG PO Q8H PRN for SPASMS Prescribed by: JAXSON ANDERSON on 5/03/13 1810 Promethazine HCl 50 Mg Supp.rect, 50 MG RC Q8H Prescribed by: TRISTEN LANDRY on 11/29/19 1555 Patient Home Medication List Home Medication List Reviewed: Yes Review of Systems Review of Systems Constitutional: see HPI Eyes: See HPI Ears, Nose, Mouth, Throat: see HPI Respiratory: see HPI Cardiovascular: see HPI Gastrointestinal: see HPI Genitourinary: see HPI Musculoskeletal: see HPI Skin: see HPI Psychiatric/Neurological: See HPI All Other Systems Reviewed Negative Unless Noted: Yes Past Biqecqs-Jhviib-Crdbol Hx Past Med/Social Hx: Reviewed Nursing Past Med/Soc Hx Patient Social History Alcohol Use: Denies Use Smoking Status: Never a Smoker 2nd Hand Smoke Exposure: No Recent Infectious Disease Expo: No Recent Hopitalizations: No Seasonal Allergies Seasonal Allergies: No Past Medical History Surgeries: Yes 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 Respiratory: No Cardiac: No 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 oz. 70.061386kq; 23.00 BMI Method:Stated General Appearance: no apparent distress, other HEENT: PERRL/EOMI, normal ENT inspection, pharynx normal Neck: normal inspection Cardiovascular: regular rate, rhythm Respiratory: lungs clear, normal breath sounds Psychiatric: alert Crainal Nerves: PERRL Motor/Sensory: no motor deficit, no sensory deficit Progress/Results/Core Measures Results/Orders My Orders Orders - TRISTEN LANDRY DO Promethazine Injection (Phenergan Injec (09/26/20 10:15) Ketorolac Injection (Toradol Injection) (09/26/20 10:15) Diphenhydramine Injection (Benadryl Inje (09/26/20 10:15) Medications Given in ED Current Medications Medications Dose Ordered Sig/Shell Route Start Time Stop Time Status Last Admin Dose Admin Diphenhydramine HCl 50 mg ONCE ONCE IM 09/26/20 10:15 09/26/20 10:16 DC 09/26/20 10:17 50 MG Ketorolac Tromethamine 60 mg ONCE ONCE IM 09/26/20 10:15 09/26/20 10:16 DC 09/26/20 10:17 60 MG Promethazine HCl 50 mg ONCE ONCE IM 09/26/20 10:15 09/26/20 10:16 DC 09/26/20 10:17 50 MG Vital Signs/I&O 09/26/20 09:51 Temp 36.6 Pulse 91 Resp 16 B/P (MAP) 141/77 (98) Pulse Ox 99 O2 Delivery Room Air Blood Pressure Mean: 98 Departure Communication (Admissions) Typical migraine headache and cocktail given. Patient medially requires discharge after medications administered. 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 Impression Primary Impression: Chronic headaches Disposition: HOME, SELF-CARE Condition: Stable Departure-Patient Inst. Decision time for Depature: 10:27 Referrals: SABINA VELOZ MD (PCP/Family) Primary Care Physician Patient Instructions: Migraines (DC) Add. Discharge Instructions: Please follow-up with your PCP and/or apprentice painter neckties for further management of your chronic migraines. All discharge instructions reviewed with patient and/or family. Voiced understanding. TRISTEN LANDRY DO Sep 26, 2020 10:27
== END 2020-09-26 10:33 | disposition home or self-care (01) ==
LOC: EDUNIT# 09:41 → ER FS 09:43
DX: G43.109 Migraine with aura, not intractable, without status migrainosus (principal); Z79.899 Other long term (current) drug therapy; Z79.82 Long term (current) use of aspirin; Z88.1 Allergy status to other antibiotic agents; Z88.2 Allergy status to sulfonamides; Z88.5 Allergy status to narcotic agent; Z88.8 Allergy status to other drugs, medicaments and biological substances
CPT/HCPCS: 99284

== ENCOUNTER 2020-09-30 02:57 | Emergency (ER) | payer MEDICARE ==
[~2020-09-30] VITALS: Ht 170.2 cm; Wt 70.8 kg
[2020-09-30 03:03] VITALS: BP 132/87
[2020-09-30] MEDS ORDERED: diphenhydrAMINE 50 MG/ML INJ (BENADRYL) IM STA (03:17)
[2020-09-30] MEDS ORDERED: PROMETHAZINE INJ 25 MG/ML (PHENERGAN) AMP IM STA (03:17)
[2020-09-30] MEDS ORDERED: KETOROLAC 60 MG/2 ML VIAL IM STA (03:17)
--- NOTE | 2020-09-30 03:20 | ED Headache ---
General Chief Complaint: Head/Cervical Problems Stated Complaint: MIGRAINE Nursing Sepsis Screen: No Definite Risk Source: patient, old records History of Present Illness Date Seen by Provider: Sep 30, 2020 Time Seen by Provider: 02:58 Initial Comments 39 yo female presents with complaint of recurrent migraine headache. She has been having increased anxiety and headache symptoms in last week since having 1st vaccination shot for Covid last week. She also has problems with allergies and weather changes as triggers for her migraines. She had been outside last night to go see her son play baseball so had been out in the weather and elements. She is due for her BoTox injections for her migraines in less than 2 weeks as well. She was feeling more anxious overnight and having headache on right side of her head which is typical for her migraine headaches. She had taken her usual medicines and it was not helping her. She had hoped to be able to wait until Dr. Veloz would be in the office during the day on but was unable to rest and felt more anxious as the night went on so she came to the ED. She denies any fever, chills, numbness, vision loss, diarrhea, burning with urination. She has had photophobia, nausea, dry heaves. Severity/Quality: severe Location: occipital (right side more than left) Prior Headaches/Recent Trauma: chronic headaches Modifying Factors: worse with exposure to light, worse with other (weather changes, seasonal allergies) Associated Symptoms: No confusion, No fatigue, No facial pain, No fever/chills, No flushing, No loss of consciousness; nausea/vomiting, nasal congestion, nasal drainage; No numbness in legs/feet, No rash, No seizures, No sinus infection, No stiff neck, No vision changes, No weakness Allergies and Home Medications Allergies Coded Allergies: Sulfa (Sulfonamide Antibiotics) (Verified Allergy, Mild, Itching, 03/14/19) cefuroxime (Verified Allergy, Unknown, 08/21/18) haloperidol (Verified Allergy, Unknown, 10/31/18) magnesium (Verified Allergy, Unknown, 08/21/18) prochlorperazine (Verified Allergy, Unknown, rash, 08/21/18) topiramate (Verified Allergy, Unknown, 08/21/18) tramadol (Verified Allergy, Unknown, 10/31/18) Uncoded Allergies: DHE (Allergy, Unknown, 10/31/18) Home Medications Butalbital/Aspirin/Caffeine 1 Each Capsule, 1 EACH PO TID PRN for Headache Prescribed by: MELANIE CLAYTON on 09/02/19 185 Cyclobenzaprine HCl 10 Mg Tablet, 10 MG PO Q8H PRN for SPASMS Prescribed by: JAXSON ANDERSON on 10/31/18 181 Promethazine HCl 50 Mg Supp.rect, 50 MG RC Q8H Prescribed by: TRISTEN LANDRY on 11/29/19 1555 Patient Home Medication List Home Medication List Reviewed: Yes Review of Systems Review of Systems Constitutional: No chills, No diaphoresis, No fever Eyes: See HPI Ears, Nose, Mouth, Throat: see HPI Cardiovascular: no symptoms reported Gastrointestinal: see HPI Genitourinary: no symptoms reported Musculoskeletal: no symptoms reported Skin: no symptoms reported Psychiatric/Neurological: See HPI, Anxiety, Headache; Denies Numbness, Denies Paresthesia, Denies Pre-Existing Deficit Past Ronafog-Wyovns-Vdqvay Hx Past Med/Social Hx: Reviewed Nursing Past Med/Soc Hx Patient Social History Alcohol Use: Denies Use Smoking Status: Never a Smoker 2nd Hand Smoke Exposure: No Recent Infectious Disease Expo: No Recent Hopitalizations: No Seasonal Allergies Seasonal Allergies: No Past Medical History Surgeries: Yes 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 Respiratory: No Cardiac: No 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 oz. 70.094319pi; 24.00 BMI Method:Stated General Appearance: WD/WN, other (anxious) HEENT: PERRL/EOMI, pharynx normal Neck: full range of motion, supple, tender lateral (right side) Cardiovascular: normal peripheral pulses, regular rate, rhythm Respiratory: chest non-tender, lungs clear, normal breath sounds, no respiratory distress, no accessory muscle use Extremities: normal range of motion, normal capillary refill Psychiatric: alert, oriented x 3 Crainal Nerves: normal hearing, normal speech, PERRL Coordination/Gait: normal gait Motor/Sensory: no motor deficit, no sensory deficit Skin: normal color, warm/dry Progress/Results/Core Measures Results/Orders My Orders Orders - SUSANA LOPEZ MD Promethazine Injection (Phenergan Injec (09/30/20 03:17) Ketorolac Injection (Toradol Injection) (09/30/20 03:17) Diphenhydramine Injection (Benadryl Inje (09/30/20 03:17) Vital Signs/I&O 09/30/20 03:03 Temp 36.4 Pulse 102 Resp 18 B/P (MAP) 132/87 (102) Pulse Ox 100 O2 Delivery Room Air Blood Pressure Mean: 102 Progress Progress Note : Progress Note With her reporting this feels similar to her typical migraine headache and feeling anxiety and weather changes have exacerbated the symptoms will treat with typical Migraine Cocktail that she has gotten in the past and had improvement with it. Toradol 60 mg IM, Phenergan 50 mg IM, Benadryl 50 mg IM. She reports that she had requested refills from Dr. Veloz and still plans to check in with him during the day so advised to work with him on anxiety and further Migraine control. Departure Impression Primary Impression: Migraine headache without aura Qualified Codes: G43.009 - Migraine without aura, not intractable, without status migrainosus Additional Impression: Anxiety about health Disposition: 01 HOME, SELF-CARE Condition: Stable Departure-Patient Inst. Decision time for Depature: 03:19 Referrals: SABINA VELOZ MD (PCP/Family) Primary Care Physician Patient Instructions: Migraines in Adults Add. Discharge Instructions: Rest in cool dark room Continue medicines as prescribed at home and check in with Dr. Veloz as planned during the day All discharge instructions reviewed with patient and/or family. Voiced understanding. SUSANA LOPEZ MD Sep 30, 2020 03:20
== END 2020-09-30 03:31 | disposition home or self-care (01) ==
LOC: EDUNIT# 02:57 → ER FS 03:00
DX: G43.009 Migraine without aura, not intractable, without status migrainosus (principal); F41.1 Generalized anxiety disorder; F32.9 Major depressive disorder, single episode, unspecified; Z88.1 Allergy status to other antibiotic agents; Z88.2 Allergy status to sulfonamides; Z88.5 Allergy status to narcotic agent; Z88.8 Allergy status to other drugs, medicaments and biological substances
CPT/HCPCS: 99284

== ENCOUNTER → 2020-11-04 | Outpatient (CLI) | payer MEDICARE ==
--- NOTE | 2020-11-04 16:52 | Diagnostic Imaging Report ---
INDICATION: Left knee pain COMPARISON: None available TECHNIQUE: 3 radiographs of the left knee dated 11/04/2020. FINDINGS: No acute fracture or dislocation. No destructive osseous process. Minimal medial joint space narrowing. Lateral compartment is well maintained. No significant osteophytosis. Trace joint effusion. No suspicious radiopaque foreign body. IMPRESSION: No acute osseous abnormality with minimal degenerative changes and trace knee joint effusion present. Dictated by: Dictated on workstation # [id number]
== END ==
LOC: RAD FS 14:31
PROVIDERS: ATTEND Nurse Practitioner
DX: M25.562 Pain in left knee (principal)
CPT/HCPCS: 73562

== ENCOUNTER 2020-11-06 18:50 | Emergency (ER) | payer MEDICARE ==
[~2020-11-06] VITALS: Ht 170.1 cm; Wt 67.4 kg
[2020-11-06 18:54] VITALS: BP 122/76
--- NOTE | 2020-11-06 19:07 | ED Headache ---
General Chief Complaint: Head/Cervical Problems Stated Complaint: HEADACHE | SORE THROAT Source: patient, old records History of Present Illness Date Seen by Provider: November 06, 2020 Time Seen by Provider: 18:52 Initial Comments 39 yo female presenting with left sided headache and tension as well as sore throat. She reports being seen in urgent care and having a rapid strep swab done. They had told her that the rapid test was negative but they are doing a culture. Her son does have strep throat. She has recently just been released from quarantine as her daughter had Covid. She personally has been vaccinated. She woke up with left-sided headache and it feels like her typical migraine headache for her. She also feels like she has a lot of muscle tension. She is very anxious and she thinks some of this is from not having her Botox injections that were due on 01 November. She was currently in quarantine at that time but has rescheduled the appointment from November 01 to later this month. She has had nausea but has not vomited yet. She presented to the ED requesting medication and help for her headache and nausea to try and prevent her from getting to the point of vomiting. Allergies and Home Medications Allergies Coded Allergies: Sulfa (Sulfonamide Antibiotics) (Verified Allergy, Mild, Itching, 03/14/19) cefuroxime (Verified Allergy, Unknown, 08/21/18) haloperidol (Verified Allergy, Unknown, 10/31/18) magnesium (Verified Allergy, Unknown, 08/21/18) prochlorperazine (Verified Allergy, Unknown, rash, 08/21/18) topiramate (Verified Allergy, Unknown, 08/21/18) tramadol (Verified Allergy, Unknown, 10/31/18) Uncoded Allergies: DHE (Allergy, Unknown, 10/31/18) Home Medications Butalbital/Aspirin/Caffeine 1 Each Capsule, 1 EACH PO TID PRN for Headache Prescribed by: MELANIE CLAYTON on 09/02/19 185 Cyclobenzaprine HCl 10 Mg Tablet, 10 MG PO Q8H PRN for SPASMS Prescribed by: JAXSON ANDERSON on 10/31/18 181 Promethazine HCl 50 Mg Supp.rect, 50 MG RC Q8H Prescribed by: TRISTEN LANDRY on 11/29/19 1555 Patient Home Medication List Home Medication List Reviewed: Yes Review of Systems Review of Systems Constitutional: No chills, No fever; malaise Eyes: Photophobia Ears, Nose, Mouth, Throat: throat pain Respiratory: no symptoms reported Cardiovascular: no symptoms reported Gastrointestinal: nausea; No vomiting Genitourinary: no symptoms reported Musculoskeletal: neck pain (left sided where she usually has pain with her migraines and feels tension in the muscles of neck) Skin: No rash Psychiatric/Neurological: Headache (left sided headache fells like her typical Migraine headache) Past Bscafhq-Pzoaub-Sluwjr Hx Past Med/Social Hx: Reviewed Nursing Past Med/Soc Hx Patient Social History 2nd Hand Smoke Exposure: No Recent Hopitalizations: No Seasonal Allergies Seasonal Allergies: No Past Medical History Surgeries: Yes 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 Respiratory: No Cardiac: No 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 oz. 70.421618iw; 24.00 BMI Method:Stated General Appearance: WD/WN, other (anxious. Wearing sunglasses) HEENT: PERRL/EOMI, pharynx normal; No tonsillar exudate Neck: supple, tender lateral (left more than right with tight muscles); No tender midline Cardiovascular: normal peripheral pulses, regular rate, rhythm Respiratory: chest non-tender, lungs clear, normal breath sounds Gastrointestinal: normal bowel sounds, non tender, soft, no pulsatile mass Extremities: normal range of motion, non-tender, normal capillary refill Psychiatric: alert, oriented x 3 Crainal Nerves: normal hearing, normal speech, PERRL Motor/Sensory: no motor deficit, no sensory deficit Skin: normal color, warm/dry Progress/Results/Core Measures Results/Orders My Orders Orders - SUSANA LOPEZ MD Ketorolac Injection (Toradol Injection) (11/06/20 19:08) Promethazine Injection (Phenergan Injec (11/06/20 19:08) Diphenhydramine Injection (Benadryl Inje (11/06/20 19:08) Vital Signs/I&O 11/06/20 18:54 Temp 36.6 Pulse 87 Resp 16 B/P (MAP) 122/76 (91) O2 Delivery Room Air Progress Progress Note : Progress Note since she has already had a swab of throat and is pending culture will not repeat that. For her headache, since she reports this feels like her typical Migraine headache will try the cocktail of medicine that has helped previously. Toradol 60 mg, Phenergan 50 mg, Benadryl 50 mg all IM. Discharge to home with her to rest in cool dark room. Follow up with pcp and specialist about BoTox injections. Departure Impression Primary Impression: Migraine headache without aura Qualified Codes: G43.019 - Migraine without aura, intractable, without status migrainosus Additional Impression: Sore throat Disposition: HOME, SELF-CARE Condition: Stable Departure-Patient Inst. Decision time for Depature: 19:10 Referrals: SABINA VELOZ MD (PCP/Family) Primary Care Physician Patient Instructions: Sore Throat, Adult ED, Home Headache Remedies, Migraines in Adults Add. Discharge Instructions: Rest in cool dark room. Continue your regular medicines. Follow up with primary provider and specialist for your BoTox injections. All discharge instructions reviewed with patient and/or family. Voiced understanding. SUSANA LOPEZ MD November 06, 2020 19:07
[2020-11-06] MEDS ORDERED: PROMETHAZINE INJ 25 MG/ML (PHENERGAN) AMP IM STA (19:08)
[2020-11-06] MEDS ORDERED: diphenhydrAMINE 50 MG/ML INJ (BENADRYL) IM STA (19:08)
[2020-11-06] MEDS ORDERED: KETOROLAC 60 MG/2 ML VIAL IM STA (19:08)
== END 2020-11-06 19:31 | disposition home or self-care (01) ==
LOC: EDUNIT# 18:50 → ER FS 18:52
DX: G43.009 Migraine without aura, not intractable, without status migrainosus (principal); J02.9 Acute pharyngitis, unspecified; Z88.2 Allergy status to sulfonamides; Z88.5 Allergy status to narcotic agent; Z88.1 Allergy status to other antibiotic agents; Z88.8 Allergy status to other drugs, medicaments and biological substances; Z79.82 Long term (current) use of aspirin
CPT/HCPCS: 99284

== ENCOUNTER 2020-11-20 05:30 | Emergency (ER) | payer MEDICARE ==
[~2020-11-20] VITALS: Ht 170.2 cm; Wt 68.9 kg
[2020-11-20 05:39] VITALS: BP 136/76
[2020-11-20] MEDS ORDERED: KETOROLAC 60 MG/2 ML VIAL IM ONE (05:45)
[2020-11-20] MEDS ORDERED: PROMETHAZINE INJ 25 MG/ML (PHENERGAN) AMP IM/IV ONE (05:45)
[2020-11-20] MEDS ORDERED: diphenhydrAMINE 50 MG/ML INJ (BENADRYL) IM ONE (05:45)
[2020-11-20] MEDS ORDERED: PROMETHAZINE INJ 25 MG/ML (PHENERGAN) AMP ONE (05:46)
--- NOTE | 2020-11-20 05:47 | ED Headache ---
General Chief Complaint: Head/Cervical Problems Stated Complaint: HEADACHE History of Present Illness Date Seen by Provider: November 20, 2020 Time Seen by Provider: 05:35 Initial Comments 39-year-old female with past medical history significant for chronic migraine headaches for many years, presents with headache since yesterday morning. Associated photophobia and nausea without vomiting. Typical headache pattern and severity without any change from her normal. No change of her medication. Noted multiple allergies. Allergies and Home Medications Allergies Coded Allergies: Sulfa (Sulfonamide Antibiotics) (Verified Allergy, Mild, Itching, 03/14/19) cefuroxime (Verified Allergy, Unknown, 08/21/18) haloperidol (Verified Allergy, Unknown, 10/31/18) magnesium (Verified Allergy, Unknown, 08/21/18) prochlorperazine (Verified Allergy, Unknown, rash, 08/21/18) topiramate (Verified Allergy, Unknown, 08/21/18) tramadol (Verified Allergy, Unknown, 10/31/18) Uncoded Allergies: DHE (Allergy, Unknown, 10/31/18) Home Medications Butalbital/Aspirin/Caffeine 1 Each Capsule, 1 EACH PO TID PRN for Headache Prescribed by: MELANIE CLAYTON on 09/02/19 1856 Cyclobenzaprine HCl 10 Mg Tablet, 10 MG PO Q8H PRN for SPASMS Prescribed by: JAXSON ANDERSON on 10/31/18 181 Promethazine HCl 50 Mg Supp.rect, 50 MG RC Q8H Prescribed by: TRISTEN LANDRY on 11/29/19 1555 Patient Home Medication List Home Medication List Reviewed: Yes Review of Systems Review of Systems Constitutional: No chills, No fever; malaise; No weakness Eyes: Denies Blurred Vision, Denies Pain; Photophobia Ears, Nose, Mouth, Throat: no symptoms reported Respiratory: no symptoms reported Cardiovascular: no symptoms reported Gastrointestinal: No abdominal pain; nausea; No vomiting Musculoskeletal: No back pain; neck pain Skin: No change in color, No rash Psychiatric/Neurological: Headache; Denies Numbness, Denies Paresthesia Past Fuxmxqw-Utazfx-Yydsbe Hx Past Med/Social Hx: Reviewed Nursing Past Med/Soc Hx Patient Social History Alcohol Use: Denies Use Smoking Status: Never a Smoker 2nd Hand Smoke Exposure: No Recent Hopitalizations: No Seasonal Allergies Seasonal Allergies: No Past Medical History Surgeries: Yes 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 Respiratory: No Cardiac: No 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 oz. 70.883044lz; 23.00 BMI Method:Stated General Appearance: WD/WN, no apparent distress HEENT: PERRL/EOMI, photophobia Neck: non-tender, supple Psychiatric: alert, oriented x 3 Crainal Nerves: normal hearing, normal speech Coordination/Gait: normal finger to nose, normal gait Motor/Sensory: no motor deficit, no sensory deficit Skin: normal color, warm/dry Departure Impression Primary Impression: Migraine Qualified Codes: G43.909 - Migraine, unspecified, not intractable, without status migrainosus Disposition: HOME, SELF-CARE Condition: Improved Departure-Patient Inst. Referrals: SABINA VELOZ MD (PCP/Family) Primary Care Physician Patient Instructions: Migraines (DC) Add. Discharge Instructions: follow up with your PCP in 3 days if not improving, ER sooner if unable to be seen and headache not improving. All discharge instructions reviewed with patient and/or family. Voiced understanding. HERON PERLA DO November 20, 2020 05:46
== END 2020-11-20 06:01 | disposition home or self-care (01) ==
LOC: EDUNIT# 05:30 → ER FS 05:33
DX: G43.809 Other migraine, not intractable, without status migrainosus (principal)
CPT/HCPCS: 99284

== ENCOUNTER 2020-12-14 05:37 | Emergency (ER) | payer MEDICARE ==
[2020-12-14] MEDS ORDERED: diphenhydrAMINE 50 MG/ML INJ (BENADRYL) IM STA (05:43)
[2020-12-14] MEDS ORDERED: PROMETHAZINE INJ 25 MG/ML (PHENERGAN) AMP IM STA (05:43)
[2020-12-14] MEDS ORDERED: KETOROLAC 60 MG/2 ML VIAL IM STA (05:43)
--- NOTE | 2020-12-14 05:46 | ED Headache ---
General Chief Complaint: Head/Cervical Problems Stated Complaint: MIGRIANE Source: patient History of Present Illness Date Seen by Provider: Dec 14, 2020 Time Seen by Provider: 05:40 Initial Comments 39 yo female presents with recurrent migraine headache. She states that she has been behind on her Botox shots but is scheduled to get them again this upcoming Sunday. She has felt this headache building up over the last few days. Sunday into Sunday it worsened as she had more anxiety from her son getting his Covid shot and she has a dog that is having surgery with the Vet today. she reports this feels like her usual Migraine headache. She has some photophobia and nausea. She tried Excedrin Migraine, Tylenol, Zofran, Phenergan, Benadryl at home without improvement. Most recent dose of anything was around 1230 or 1 am. No fever, chills, vomiting, diarrhea, cough, head trauma. Prior Headaches/Recent Trauma: frequent headaches, chronic headaches Associated Symptoms: No confusion, No fatigue, No facial pain, No fever/chills, No flushing, No loss of consciousness, No nasal congestion, No nasal drainage, No numbness in legs/feet, No rash, No seizures, No sinus infection, No stiff neck, No vision changes, No weakness Allergies and Home Medications Allergies Coded Allergies: Sulfa (Sulfonamide Antibiotics) (Verified Allergy, Mild, Itching, 03/14/19) cefuroxime (Verified Allergy, Unknown, 08/21/18) haloperidol (Verified Allergy, Unknown, 10/31/18) magnesium (Verified Allergy, Unknown, 08/21/18) prochlorperazine (Verified Allergy, Unknown, rash, 08/21/18) topiramate (Verified Allergy, Unknown, 08/21/18) tramadol (Verified Allergy, Unknown, 10/31/18) Uncoded Allergies: DHE (Allergy, Unknown, 10/31/18) Home Medications Butalbital/Aspirin/Caffeine 1 Each Capsule, 1 EACH PO TID PRN for Headache Prescribed by: MELANIE CLAYTON on 09/02/19 185 Cyclobenzaprine HCl 10 Mg Tablet, 10 MG PO Q8H PRN for SPASMS Prescribed by: JAXSON ANDERSON on 10/31/181809 Promethazine HCl 50 Mg Supp.rect, 50 MG RC Q8H Prescribed by: TRISTEN LANDRY on 11/29/19 1555 Patient Home Medication List Home Medication List Reviewed: Yes Review of Systems Review of Systems Constitutional: No chills, No fever Eyes: See HPI Ears, Nose, Mouth, Throat: see HPI Respiratory: No cough, No short of breath Cardiovascular: no symptoms reported Gastrointestinal: see HPI Genitourinary: no symptoms reported Musculoskeletal: neck pain (muscle tightness and pain in neck that is chronic with her Migraines) Skin: No rash Psychiatric/Neurological: See HPI, Anxiety (which makes her Migraine headache worse) Past Hhrevyq-Wuiwuh-Mrijzp Hx Past Med/Social Hx: Reviewed Nursing Past Med/Soc Hx Patient Social History Alcohol Use: Denies Use 2nd Hand Smoke Exposure: No Recent Hopitalizations: No Seasonal Allergies Seasonal Allergies: No Past Medical History Surgeries: Yes 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 Respiratory: No Cardiac: No 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 oz. 70.243936mb; 23.00 BMI Method:Stated General Appearance: WD/WN, other (appears anxious. wearing sunglasses and keeping her eyes covered) HEENT: PERRL/EOMI, pharynx normal Neck: full range of motion, supple, tender lateral Cardiovascular: normal peripheral pulses, regular rate, rhythm Respiratory: chest non-tender, lungs clear, normal breath sounds Gastrointestinal: normal bowel sounds, non tender, soft, no pulsatile mass Extremities: normal range of motion, non-tender, normal capillary refill Psychiatric: alert, oriented x 3 Crainal Nerves: normal hearing, normal speech, PERRL Coordination/Gait: normal gait Motor/Sensory: no motor deficit, no sensory deficit Skin: normal color, warm/dry; No rash Progress/Results/Core Measures Results/Orders My Orders Orders - SUSANA LOPEZ MD Ketorolac Injection (Toradol Injection) (12/14/20 05:43) Promethazine Injection (Phenergan Injec (12/14/20 05:43) Diphenhydramine Injection (Benadryl Inje (12/14/20 05:43) Vital Signs/I&O 12/14/20 05:39 Temp 36.7 Pulse 94 Resp 16 B/P (MAP) 137/74 (95) Pulse Ox 98 O2 Delivery Room Air Progress Progress Note : Progress Note Since she reports this feels like her usual Migraine and no atypical or unusual symptoms will order medicines that have helped in the past. Toradol 60 mg IM, Phenergan 50 mg IM, Benadryl 50 mg IM. Departure Impression Primary Impression: Migraine headache without aura Qualified Codes: G43.019 - Migraine without aura, intractable, without status migrainosus Disposition: 01 HOME, SELF-CARE Condition: Stable Departure-Patient Inst. Decision time for Depature: 05:46 Referrals: SABINA VELOZ MD (PCP/Family) Primary Care Physician Patient Instructions: Migraines in Adults Add. Discharge Instructions: Rest in cool dark room Continue medicines as prescribed Follow up with your regular providers for continued concerns All discharge instructions reviewed with patient and/or family. Voiced understanding. SUSANA LOPEZ MD Dec 14, 2020 05:46
[2020-12-14 06:03] VITALS: BP 137/74
== END 2020-12-14 06:03 | disposition home or self-care (01) ==
LOC: EDUNIT# 05:37 → ER FS 05:38
DX: G43.019 Migraine without aura, intractable, without status migrainosus (principal); F41.9 Anxiety disorder, unspecified; F32.9 Major depressive disorder, single episode, unspecified
CPT/HCPCS: 99284

== ENCOUNTER 2020-12-15 05:22 | Emergency (ER) | payer MEDICARE ==
[2020-12-15] MEDS ORDERED: KETOROLAC 60 MG/2 ML VIAL IM ONE (05:30)
[2020-12-15] MEDS ORDERED: PROCHLORPERAZINE 10 MG/2ML INJ (COMPAZINE) IM ONE (05:30)
[2020-12-15] MEDS ORDERED: LORazepam INJ 2 MG/ML (ATIVAN) VIAL IM ONE (05:30)
--- NOTE | 2020-12-15 05:35 | ED Headache ---
General Chief Complaint: Head/Cervical Problems Stated Complaint: MIGRIANE,VOMITING Source: patient Exam Limitations: no limitations History of Present Illness Date Seen by Provider: Dec 15, 2020 Time Seen by Provider: 05:15 Initial Comments Patient is a 39-year-old female with history of recurrent migraines who presents with continuous migraine for the past 2 days. Patient was evaluated in the emergency department yesterday for the same. She was given usual migraine cocktail and returned home with a persistent right-sided throbbing migraine rated moderate to severe. She reports photophobia and nausea despite alternating Excedrin Benadryl and Compazine at home. She is unable to sleep secondary to the pain. Patient states is unusual for her to have refractory migraines. She also reports increased anxiety over current migraine. She has plans to follow-up with her neurologist in [place] in 2 days and is concerned she may not be able to keep current appointment. Timing/Duration: waxing and waning Severity/Quality: moderate, constant Location: temporal Prior Headaches/Recent Trauma: no recent headache/trauma, frequent headaches Modifying Factors: improves with other Associated Symptoms: other Allergies and Home Medications Allergies Coded Allergies: Sulfa (Sulfonamide Antibiotics) (Verified Allergy, Mild, Itching, 03/14/19) cefuroxime (Verified Allergy, Unknown, 08/21/18) haloperidol (Verified Allergy, Unknown, 10/31/18) magnesium (Verified Allergy, Unknown, 08/21/18) prochlorperazine (Verified Allergy, Unknown, rash, 08/21/18) topiramate (Verified Allergy, Unknown, 08/21/18) tramadol (Verified Allergy, Unknown, 10/31/18) Uncoded Allergies: DHE (Allergy, Unknown, 10/31/18) Home Medications Butalbital/Aspirin/Caffeine 1 Each Capsule, 1 EACH PO TID PRN for Headache Prescribed by: MELANIE CLAYTON on 09/02/19 185 Cyclobenzaprine HCl 10 Mg Tablet, 10 MG PO Q8H PRN for SPASMS Prescribed by: JAXSON ANDERSON on 10/31/18 181 Promethazine HCl 50 Mg Supp.rect, 50 MG RC Q8H Prescribed by: TRISTEN LANDRY on 11/29/19 1555 Patient Home Medication List Home Medication List Reviewed: Yes Review of Systems Review of Systems Constitutional: see HPI Eyes: See HPI Ears, Nose, Mouth, Throat: see HPI Respiratory: see HPI Gastrointestinal: see HPI Genitourinary: see HPI Musculoskeletal: see HPI Skin: see HPI Psychiatric/Neurological: See HPI All Other Systems Reviewed Negative Unless Noted: Yes Past Rvuydjv-Hyibbo-Vvxbvt Hx Past Med/Social Hx: Reviewed Nursing Past Med/Soc Hx Patient Social History Alcohol Use: Denies Use 2nd Hand Smoke Exposure: No Recent Hopitalizations: No Seasonal Allergies Seasonal Allergies: No Past Medical History Surgeries: Yes 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 Respiratory: No Cardiac: No Neurological: Yes 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 oz. 70.235467zf; 23.00 BMI Method:Stated General Appearance: no apparent distress, other (Anxious) HEENT: PERRL/EOMI, normal ENT inspection Neck: non-tender, supple, normal inspection Cardiovascular: normal peripheral pulses, regular rate, rhythm Respiratory: chest non-tender, lungs clear Gastrointestinal: non tender, soft Psychiatric: alert, oriented x 3 Motor/Sensory: no sensory deficit, no pronator drift Progress/Results/Core Measures Results/Orders My Orders Orders - TRISTEN LANDRY DO Lorazepam Injection (Ativan Injection) (12/15/20 05:30) Prochlorperazine Injection (Compazine In (12/15/20 05:30) Ketorolac Injection (Toradol Injection) (12/15/20 05:30) Dexamethasone Oral Soln (Ed) (Decadron I (12/15/20 05:28) Departure Communication (Admissions) Typical migraine cocktail given with the addition of Decadron and Ativan. 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 She does have follow-up up scheduled with her neurologist in 2 days. Impression Primary Impression: Migraine Disposition: HOME, SELF-CARE Condition: Stable Departure-Patient Inst. Decision time for Depature: 05:35 Referrals: SABINA VELOZ MD (PCP/Family) Primary Care Physician Patient Instructions: Migraines (DC) Add. Discharge Instructions: Please go home and rest. Continue current migraine medication follow-up with your neurologist as scheduled. Return to the ED if new or worsening symptoms. All discharge instructions reviewed with patient and/or family. Voiced understanding. TRISTEN LANDRY DO Dec 15, 2020 05:35
[2020-12-15] MEDS ORDERED: PROMETHAZINE INJ 25 MG/ML (PHENERGAN) AMP IM ONE (05:45)
[2020-12-15 05:47] VITALS: BP 152/86
== END 2020-12-15 05:48 | disposition home or self-care (01) ==
LOC: EDUNIT# 05:22 → ER FS 05:23
DX: G43.909 Migraine, unspecified, not intractable, without status migrainosus (principal); F41.9 Anxiety disorder, unspecified
CPT/HCPCS: 99284

== ENCOUNTER 2021-01-06 16:06 | Emergency (ER) | payer MEDICARE ==
[2021-01-06 16:23] VITALS: BP 104/71
[2021-01-06] MEDS ORDERED: IBUP-1780 PO (16:43)
--- NOTE | 2021-01-06 16:44 | ED Back Pain ---
General Chief Complaint: Back Problems Stated Complaint: LOWER BACK PAIN Nursing Triage Note: Started having R sided lower back pain 4 days ago that radiated down R leg. Is ok when walking, but pain is made worse with sitting, standing and bending. No known injury. History of Present Illness Date Seen by Provider: Jan 06, 2021 Time Seen by Provider: 16:28 Initial Comments 40-year-old female presents with right lower back pain for 4 days with no injury. Similar pain in the past. Pain worse with movement. Denies loss of bowel bladder control or lower extremity weakness or paresthesia. Has been taking Motrin and Flexeril at home, called her primary care doctor who advised to come to the ER. Allergies and Home Medications Allergies Coded Allergies: Sulfa (Sulfonamide Antibiotics) (Verified Allergy, Mild, Itching, 03/14/19) cefuroxime (Verified Allergy, Unknown, 08/21/18) haloperidol (Verified Allergy, Unknown, 10/31/18) magnesium (Verified Allergy, Unknown, 08/21/18) prochlorperazine (Verified Allergy, Unknown, rash, 08/21/18) topiramate (Verified Allergy, Unknown, 08/21/18) tramadol (Verified Allergy, Unknown, 10/31/18) Uncoded Allergies: DHE (Allergy, Unknown, 10/31/18) Home Medications Butalbital/Aspirin/Caffeine 1 Each Capsule, 1 EACH PO TID PRN for Headache Prescribed by: MELANIE CLAYTON on 09/02/19 1856 Cyclobenzaprine HCl 10 Mg Tablet, 10 MG PO Q8H PRN for SPASMS Prescribed by: JAXSON ANDERSON on 10/31/18 181 Ibuprofen 800 Mg Tablet, 800 MG PO Q8H PRN for PAIN Prescribed by: HERON PERLA on 01/06/21 1643 Promethazine HCl 50 Mg Supp.rect, 50 MG RC Q8H Prescribed by: TRISTEN LANDRY on 11/29/19 1555 Patient Home Medication List Home Medication List Reviewed: Yes Review of Systems Constitutional: No fever, No malaise, No weakness Gastrointestinal: No abdominal pain, No vomiting Genitourinary: No dysuria, No frequency Musculoskeletal: back pain; No joint pain, No neck pain Skin: No change in color, No rash Psychiatric/Neurological: Denies Numbness, Denies Paresthesia, Denies Tremors, Denies Weakness Past Sjurshb-Shauqr-Gznxyo Hx Patient Social History Tobacco Use?: No Smoking Status: Never a Smoker Substance use?: No Alcohol Use?: No Seasonal Allergies Seasonal Allergies: No Past Medical History Surgeries: Yes 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 Respiratory: No Cardiac: No Neurological: Yes 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 oz. 70.408761ey; 23.00 BMI Method:Stated General Appearance: No Apparent Distress, WD/WN Back: Normal Inspection, No CVA Tenderness, No Vertebral Tenderness, Muscle Spasm (R lower lumbar paraspinal ms) Extremity: Normal Range of Motion, Non Tender Neurologic/Psychiatric: Alert, Oriented x3, Normal Mood/Affect Progress/Results/Core Measures Results/Orders My Orders Orders - HERON PERLA DO Ketorolac Injection (Toradol Injection) (01/06/21 16:45) Medications Given in ED Current Medications Medications Dose Ordered Sig/Shell Route Start Time Stop Time Status Last Admin Dose Admin Ketorolac Tromethamine 60 mg ONCE ONCE IM 01/06/21 16:45 01/06/21 16:46 DC 01/06/21 16:48 60 MG Vital Signs/I&O 01/06/21 16:23 Temp 36.1 Pulse 116 Resp 20 B/P (MAP) 104/71 (82) Pulse Ox 99 Blood Pressure Mean: 82 Progress Progress Note : Progress Note Minor low back spasm with patient already in position of muscle relaxer at home. Advised heat massage and stretching and also given recommendation to consider an electrical stim device that she can by herself. Also recommended follow-up with her PCP in 1 week if not improving and to consider physical therapy at that time. Departure Impression Primary Impression: Back strain Qualified Codes: S39.012A - Strain of muscle, fascia and tendon of lower back, initial encounter Disposition: HOME, SELF-CARE Condition: Stable Departure-Patient Inst. Decision time for Depature: 16:42 Referrals: SABINA VELOZ MD (PCP/Family) Primary Care Physician Patient Instructions: Back Muscle Strain (DC) Add. Discharge Instructions: Apply heat, massage and stretch your back. See Dr Veloz for follow up care and consider physical therapy All discharge instructions reviewed with patient and/or family. Voiced understanding. Scripts Ibuprofen (Ibuprofen) 800 Mg Tablet 800 MG PO Q8H PRN for PAIN, #30 TAB 0 Refills Prov: HERON PERLA DO 01/06/21 HERON PERLA DO Jan 06, 2021 16:44
[2021-01-06] MEDS ORDERED: KETOROLAC 60 MG/2 ML VIAL IM ONE (16:45)
== END 2021-01-06 16:50 | disposition home or self-care (01) ==
LOC: EDUNIT# 16:06 → ER FS 16:08
DX: S39.012A Strain of muscle, fascia and tendon of lower back, initial encounter (principal); Z88.5 Allergy status to narcotic agent; X58.XXXA Exposure to other specified factors, initial encounter
CPT/HCPCS: 99284

== ENCOUNTER 2021-01-11 06:26 | Emergency (ER) | payer MEDICARE ==
[~2021-01-11] VITALS: Ht 170.1 cm; Wt 68.3 kg
[~2021-01-11 06:26] MED LIST changes: +IBUP-1780 PO
[2021-01-11 06:30] VITALS: BP 123/82
--- NOTE | 2021-01-11 06:41 | ED Headache ---
General Chief Complaint: Head/Cervical Problems Stated Complaint: MIGRAINE,SORE THROAT History of Present Illness Date Seen by Provider: Jan 11, 2021 Time Seen by Provider: 06:36 Initial Comments 40-year-old female presents with a migraine. Patient has frequent visits for migraine. She reports that this started out as a dull headache and sore throat about a day to day and half ago. That then the dull headache became more of a migraine. If she got a migraine she became photophobic, nausea and vomiting. She denies any fevers or chills. She reports she is fully vaccinated for Covid. She denies any cough, shortness of breath. Allergies and Home Medications Allergies Coded Allergies: Sulfa (Sulfonamide Antibiotics) (Verified Allergy, Mild, Itching, 03/14/19) cefuroxime (Verified Allergy, Unknown, 08/21/18) haloperidol (Verified Allergy, Unknown, 10/31/18) magnesium (Verified Allergy, Unknown, 08/21/18) prochlorperazine (Verified Allergy, Unknown, rash, 08/21/18) topiramate (Verified Allergy, Unknown, 08/21/18) tramadol (Verified Allergy, Unknown, 10/31/18) Uncoded Allergies: DHE (Allergy, Unknown, 10/31/18) Home Medications Butalbital/Aspirin/Caffeine 1 Each Capsule, 1 EACH PO TID PRN for Headache Prescribed by: MELANIE CLAYTON on 09/02/19 1856 Cyclobenzaprine HCl 10 Mg Tablet, 10 MG PO Q8H PRN for SPASMS Prescribed by: AJXSON ANDERSON on 10/31/18 181 Ibuprofen 800 Mg Tablet, 800 MG PO Q8H PRN for PAIN Prescribed by: HERON PERLA on 01/06/21 1643 Promethazine HCl 50 Mg Supp.rect, 50 MG RC Q8H Prescribed by: TRISTEN LANDRY on 11/29/19 1555 Patient Home Medication List Home Medication List Reviewed: Yes Review of Systems Review of Systems Constitutional: see HPI; No chills, No fever Eyes: Photophobia Ears, Nose, Mouth, Throat: throat pain Respiratory: No cough, No short of breath Cardiovascular: No chest pain, No palpitations Gastrointestinal: No abdominal pain, No nausea, No vomiting Genitourinary: no symptoms reported Musculoskeletal: no symptoms reported Skin: no symptoms reported Psychiatric/Neurological: Headache Past Bbhxygj-Iprssj-Ogvcqx Hx Seasonal Allergies Seasonal Allergies: No Past Medical History Surgeries: Yes 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 Respiratory: No Cardiac: No Neurological: Yes 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 oz. 70.818063tn; 23.00 BMI Method:Stated General Appearance: mild distress HEENT: PERRL/EOMI, pharyngeal erythema; No tonsillar exudate Neck: full range of motion, supple; No lymphadenopathy (R); lymphadenopathy (L) Cardiovascular: normal peripheral pulses, regular rate, rhythm Respiratory: lungs clear, normal breath sounds, no respiratory distress Gastrointestinal: non tender, soft Psychiatric: alert, oriented x 3 Crainal Nerves: normal speech, PERRL Coordination/Gait: normal gait Motor/Sensory: no motor deficit, no sensory deficit Skin: normal color, warm/dry Progress/Results/Core Measures Results/Orders My Orders Orders - LITZY WHEELER DO Metoclopramide Injection (Reglan Injecti (01/11/21 06:43) Ketorolac Injection (Toradol Injection) (01/11/21 06:43) Diphenhydramine Injection (Benadryl Inje (01/11/21 06:43) Vital Signs/I&O 01/11/21 06:30 Temp 36.5 Pulse 87 Resp 18 B/P (MAP) 123/82 (96) Pulse Ox 99 O2 Delivery Room Air Departure Impression Primary Impression: Chronic headaches Qualified Codes: R51.9 - Headache, unspecified; G89.29 - Other chronic pain Additional Impression: Sore throat Disposition: 01 HOME, SELF-CARE Condition: Stable Departure-Patient Inst. Referrals: SABINA VELOZ MD (PCP/Family) Primary Care Physician Patient Instructions: Sore Throat, Adult ED, Headache, Adult Add. Discharge Instructions: Salt water gargle for sore throat, cbaz-ruu-kxutuog allergy medication such as Jovita to help with potential allergic sore throat versus viral syndrome. If you develop a fever over the next 24 to 36 hours follow-up with your primary care provider for further evaluation of your sore throat. Follow-up with your neurologist for continued migraine treatment. All discharge instructions reviewed with patient and/or family. Voiced understanding. LITZY WHEELER DO Jan 11, 2021 06:41
[2021-01-11] MEDS ORDERED: diphenhydrAMINE 50 MG/ML INJ (BENADRYL) IM STA (06:43)
[2021-01-11] MEDS ORDERED: KETOROLAC 60 MG/2 ML VIAL IM STA (06:43)
[2021-01-11] MEDS ORDERED: METOCLOPRAMIDE INJ 10 MG/2 ML (REGLAN) IM/IV STA (06:43)
== END 2021-01-11 07:09 | disposition home or self-care (01) ==
LOC: EDUNIT# 06:26 → ER FS 06:27
DX: G89.29 Other chronic pain (principal); R51.9 Headache, unspecified; J02.9 Acute pharyngitis, unspecified; Z79.82 Long term (current) use of aspirin
CPT/HCPCS: 99284

== ENCOUNTER 2021-02-02 06:00 | Emergency (ER) | payer MEDICARE ==
[~2021-02-02] VITALS: Ht 170 cm; Wt 66.2 kg
[2021-02-02] MEDS ORDERED: KETOROLAC 60 MG/2 ML VIAL IM STA (06:30)
[2021-02-02] MEDS ORDERED: LORazepam INJ 2 MG/ML (ATIVAN) VIAL IM STA (06:30)
[2021-02-02] MEDS ORDERED: diphenhydrAMINE 50 MG/ML INJ (BENADRYL) IM STA (06:30)
[2021-02-02] MEDS ORDERED: PROMETHAZINE INJ 25 MG/ML (PHENERGAN) AMP IM STA (06:30)
--- NOTE | 2021-02-02 06:34 | ED Headache ---
General Chief Complaint: Head/Cervical Problems Stated Complaint: MIGRAINE,NAUSEA Nursing Triage Note: Pt awake, alert, oriented. Ambulated from waiting room to ED overflow without difficulty. Pt reports history of migraines. States this migraine has been going on for 3 days et was initially a dull headache. Around 2199 last noc, the pain began to get progressively worse until pt decided to seek treatment. Reports pain is 8/10 et is focused on left side of head et behind left eye. Also endorses photosensitivity. Lights dimmed for pt comfort. Airway intact. Respirations even et unlabored. Skin warm, dry, appropriate for ethnicity. No sx of acute distress. Source: patient History of Present Illness Date Seen by Provider: Feb 02, 2021 Time Seen by Provider: 06:10 Initial Comments 40 yo female presents with complaints of left sided headache and muscle tension in neck. She reports this started after leaving the house Sunday night to go shopping. She was very anxious about that since she is not left with this much since the Covid pandemic began in 2019. She had no fall or trauma. She denies any fever or chills. She states that the pain is primarily on the left side and feels like her typical migraine and tension type headache. She has increased anxiety as well which is making the headache worse. She had an episode of v omiting here in the ED after arrival. She also has some chronic low back pain that she has been fighting for the last few weeks. When her medicines and rest as well as using a roller to help with muscle spasm and strain in her neck were not helping at home she came to the emergency department to be seen and usually if it resorts to this then she requires injections of medication to help with her symptoms. Prior Headaches/Recent Trauma: no recent headache/trauma Associated Symptoms: No facial pain, No fever/chills, No flushing, No loss of consciousness; nausea/vomiting (x1 here in the ED); No nasal congestion, No nasal drainage, No numbness in legs/feet, No seizures, No sinus infection, No stiff neck, No vision changes Allergies and Home Medications Allergies Coded Allergies: Sulfa (Sulfonamide Antibiotics) (Verified Allergy, Mild, Itching, 03/14/19) cefuroxime (Verified Allergy, Unknown, 08/21/18) haloperidol (Verified Allergy, Unknown, 10/31/18) magnesium (Verified Allergy, Unknown, 08/21/18) prochlorperazine (Verified Allergy, Unknown, rash, 08/21/18) topiramate (Verified Allergy, Unknown, 08/21/18) tramadol (Verified Allergy, Unknown, 10/31/18) Uncoded Allergies: DHE (Allergy, Unknown, 10/31/18) Home Medications Butalbital/Aspirin/Caffeine 1 Each Capsule, 1 EACH PO TID PRN for Headache Prescribed by: MELANIE CLAYTON on 09/02/19 1856 Cyclobenzaprine HCl 10 Mg Tablet, 10 MG PO Q8H PRN for SPASMS Prescribed by: JAXSON ANDERSON on 10/31/18 1810 Ibuprofen 800 Mg Tablet, 800 MG PO Q8H PRN for PAIN Prescribed by: HERON PERLA on 01/06/21 1643 Promethazine HCl 50 Mg Supp.rect, 50 MG RC Q8H Prescribed by: TRISTEN LANDRY on 11/29/19 1555 Patient Home Medication List Home Medication List Reviewed: Yes Review of Systems Review of Systems Constitutional: No chills, No fever Eyes: Photophobia Ears, Nose, Mouth, Throat: no symptoms reported Respiratory: no symptoms reported Cardiovascular: no symptoms reported Gastrointestinal: see HPI Genitourinary: no symptoms reported Musculoskeletal: back pain (right low back pain that is chronic and goes into her hip) Skin: No rash Psychiatric/Neurological: See HPI, Anxiety, Headache; Denies Numbness, Denies Paresthesia, Denies Tingling Past Fdvvmyg-Dqagpn-Qsghwf Hx Patient Social History Tobacco Use?: No Substance use?: No Alcohol Use?: No Pt feels they are or have been: No Immunizations Up To Date Influenza Vaccine Up-to-Date: Yes; Up-to-Date First/Initial COVID19 Vaccinat: September 2020 Second COVID19 Vaccination Francis: October 2020 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[employer] Seasonal Allergies Seasonal Allergies: No Past Medical History Surgeries: Yes 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 Respiratory: No Cardiac: No Neurological: Yes 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 oz. 70.367125js; 22.00 BMI Method:Stated General Appearance: WD/WN, other (anxious and tearful at times) HEENT: PERRL/EOMI, other (mild erythema and swelling to left upper eyelid) Neck: full range of motion, supple, tender lateral (left side with spasm of muscle) Cardiovascular: normal peripheral pulses, regular rate, rhythm Respiratory: chest non-tender, lungs clear, normal breath sounds Gastrointestinal: normal bowel sounds, non tender, soft, no pulsatile mass Extremities: normal range of motion, non-tender, normal capillary refill Psychiatric: alert, oriented x 3 Crainal Nerves: normal hearing, normal speech, PERRL Coordination/Gait: normal gait Motor/Sensory: no motor deficit, no sensory deficit Skin: normal color, warm/dry Progress/Results/Core Measures Results/Orders My Orders Orders - SUSANA LOPEZ MD Ketorolac Injection (Toradol Injection) (02/02/21 06:30) Diphenhydramine Injection (Benadryl Inje (02/02/21 06:30) Promethazine Injection (Phenergan Injec (02/02/21 06:30) Lorazepam Injection (Ativan Injection) (02/02/21 06:30) Vital Signs/I&O 02/02/21 06:05 Temp 36.6 Pulse 77 Resp 14 B/P (MAP) 124/70 (88) Pulse Ox 100 O2 Delivery Room Air Blood Pressure Mean: 88 Progress Progress Note : Progress Note Since patient reports this feels like her typical migraine headache and she has no new trauma or acute abnormal symptoms will treat with migraine cocktail that has worked for her in the past with Toradol 60 mg IM, Benadryl 50 mg IM, Phenergan 50 mg IM. Since she is also anxious and having some pain in her back and spasms in her neck we will also do Ativan 2 mg IM. Encourage follow-up and check with her primary as well as headache specialist. Encourage fluids and rest. Continue on home medications and therapy Departure Impression Primary Impression: Tension type headache Qualified Codes: G44.219 - Episodic tension-type headache, not intractable Additional Impressions: Migraine headache without aura Qualified Codes: G43.009 - Migraine without aura, not intractable, without status migrainosus Anxiety Disposition: 01 HOME, SELF-CARE Condition: Stable Departure-Patient Inst. Decision time for Depature: 06:33 Referrals: SABINA VELOZ MD (PCP/Family) Primary Care Physician Patient Instructions: Headache, Adult ED, Anxiety, Adult ED Add. Discharge Instructions: Follow up with Dr. Veloz and your Neurology/Headache specialist for continued concerns. Rest in a cool dark room Continue on your regular medicines All discharge instructions reviewed with patient and/or family. Voiced understanding. SUSANA LOPEZ MD Feb 02, 2021 06:34
[2021-02-02 07:01] VITALS: BP 119/73
--- OUTSIDE RECORDS SUMMARY | 2021-02-02 18:58 | XMS REPORT | Clinical Summary ---
Author Author [facility] Organization [facility] Address Unknown Phone Unavailable Care Team Providers Care Applied Behavior Specialist Name Role Phone Camilo Aviles MD PCP Allergies Comments Active Allergy Reactions Severity Noted Date Cefuroxime Axetil Rash Low 10/07/2015 Sulfa (Sulfonamide Itching 10/07/2015 Antibiotics) Medications End Date Status Medication Sig Dispensed Refills Start Date Active onabotulinumtoxinA Inject as 1 0 (BOTOX) 200 unit SolR directed. 5 Active promethazine (PHENERGAN) Take by 30 0 0 25 MG tablet mouth. 5 Additional Information Patient taking differently: 25 mg Oral Every 6 hours PRN, Reported on 10/07/2015 Active butorphanol (STADOL) 10 3 mg/mL nasal spray 6 Active LORazepam (ATIVAN) 1 MG Take 1 mg by 2 tablet mouth as 6 needed. Active predniSONE (DELTASONE) 20 Take 20 mg by 0 MG tablet mouth daily. Take 2 tablets once daily Active SYNTHROID 25 mcg Take 1 tablet 90 tablet 0 tabletIndications: Other (25 mcg 7 specified hypothyroidism total) by mouth daily. Take along with 200 mcg tab Active SYNTHROID 200 mcg Take 1 tablet 90 tablet 0 tabletIndications: Other (200 mcg 7 specified hypothyroidism total) by mouth daily. Skip half tablet weekly Active Problems Problem Noted Date Menopause 06/10/2014 Migraine 06/10/2014 Overview: Formatting of this note might be differ ent from the original. ICD-10 conversion Nausea without vomiting 06/10/2014 Overview: Formatting of this note might be differ ent from the original. ICD-10 conversion Hypothyroidism 06/10/2014 Overview: Formatting of this note might be differ ent from the original. ICD-10 conversion Family History Medical History Relation Name Comments Breast cancer Mother Family history of m alignant neoplasm of breast; Breast cancer Other Grandmother; Family history of malignant neoplasm of breast; Diabetes type II Other Grandparent; Family history of type 2 diabetes mellitus; Hypertension Other Family History; Fam regulo history of hypertension; Lung cancer Other Grandparent; Family history of lung cancer; Stroke Other Grandparent; Family history of cerebrovascular accident; Relation Name Status Comments Mother Other Social History Date Tobacco Use Types Packs/Day Years Used Former Smoker Comments Alcohol Use Standard Drinks/Week No 0 (1 standard drink = 0.6 o z pure alcohol) Sex Assigned at Date Recorded Not on file Last Filed Vital Signs Reading Time Taken Comments Vital Sign 112/80 10/07/2015 4:39 PM CDT Blood Pressure 74 10/07/2015 4:39 PM CDT Pulse - - Temperature - - Respiratory Rate - - Oxygen Saturation - - Inhaled Oxygen Concentration 69.8 kg (153 lb 14.4 oz) 10/07/2015 4:39 PM CDT Weight 171.3 cm (5' 7.44") 10/07/2015 4:39 PM CDT Height 23.79 10/07/2015 4:39 PM CDT Body Mass Index Plan of Treatment Health Maintenance Due Date Last Done Comments Td/Tdap# 1980 Cervical Cancer Screening 12/19/2000 via Pap Smear Influenza Vaccine (#1) 2021 Pneumococcal Vaccine: Aged Out No longer eligib le based on patient's age to Pediatrics (0 to 5 Years) complete this topic and At-Risk Patients (6 to 64 Years) Results Not on filefrom Last 3 Months Insurance Type Payer Benefit Subscriber ID Effective Phone Address Plan / Dates Group [facility] OUT OF [id number] 20 15- [facility] [place] [place] (Home) [place], [place] [address] Bernice Choi Personal/F Self [address] [place] [address] (Home) [place], [place] [address] Bernice Choi Personal/F Self [address] [place] [address] ([place]) [place], [place] [address] Advance Directives For more information, please contact: [phone] 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
--- OUTSIDE RECORDS SUMMARY | 2021-02-02 18:58 | XMS REPORT | Clinical Summary ---
Author Author [facility] Organization [facility] Address Unknown Phone Unavailable Care Team Providers Care Safety Equipment Tester Name Role Phone Brian Fuentes DO, James L Unavailable [phone] Camilo Aviles MD PCP Source Comments Some departments are not documenting in the electronic medical record. If you d o not see the information that you expected, contact Release of Information in [facility] [employer] Information Management department at [phone] for further assistan ce in locating additional records.[facility] Allergies Comments Active Allergy Reactions Severity Noted Date Adhesive Tape (Rosins) RASH Medium 016 Cefuroxime Axetil RASH Medium 01/17/2016 Sulfa (Sulfonamide RASH Medium 01/17/2016 Antibiotics) Medications End Date Status Medication Sig Dispensed Refills Start Date Active zolpidem (AMBIEN) 10 mg Take 10 mg by 0 tablet mouth at bedtime as needed. Active LORazepam (ATIVAN) 1 mg Take 1 mg by 0 tablet mouth every 4 hours as needed for Nausea, Vomiting or Other.... Active ONABOTULINUMTOXINA (BOTOX Inject to 0 IJ) area(s) as directed. Active levothyroxine (SYNTHROID) Take 200 mcg 0 200 mcg tablet by mouth daily. Active estradiol(+) Apply 1 Patch 0 (VIVELLE-DOT) 0.0375 to top of mg/24 hr patch skin as directed twice weekly. Active promethazine (PHENERGAN) Take 25 mg by 0 25 mg tablet mouth every 6 hours as needed for Nausea. Active prochlorperazine Take 10 mg by 0 (COMPAZINE) 10 mg tablet mouth every 6 hours as needed. Active butorphanol (STADOL) 10 Apply 1 Bunn 0 mg/mL nasal spray to one nostril as directed every 4 hours as needed. Active acetaminophen (TYLENOL) Take 500 mg 0 500 mg tablet by mouth every 6 hours as needed for Pain. Active MULTIVITAMINS WITH Take by 0 FLUORIDE (MULTI-VITAMIN mouth daily. PO) Active magnesium daily. 0 Active DIPHENHYDRAMINE HCL Take by 0 (BENADRYL ALLERGY PO) mouth as Needed. Active DULoxetine DR (CYMBALTA) Take 1 Cap by 30 Cap 5 30 mg capsuleIndications: mouth daily. 6 Intractable chronic migraine without aura and without status migrainosus, Migraine with aura and without status migrainosus, not intractable, Generalized anxiety disorder Active riboflavin(+) (VITAMIN Take 4 Tabs 120 Tab 5 B-2) 100 mg by mouth 6 tabIndications: daily. Intractable chronic migraine without aura and without status migrainosus, Migraine with aura and without status migrainosus, not intractable, Generalized anxiety disorder Active Problems Problem Noted Date Intractable chronic migraine without aura and without status migrainosus 01/18/2016 Migraine with aura and without status migrainosus, no t intractable 01/18/2016 Generalized anxiety disorder 01/18/2016 Surgical History Surgery Date Site/Laterality Comments HYSTERECTOMY PELVIC LAPAROSCOPY 2000 & 2010 Medical History Medical History Date Comments Anxiety disorder Migraine Hypothyroidism TMJ (dislocation of temporomandibular joint) Hx of endometritis IgA deficiency (HCC) Family History Medical History Relation Name Comments Asthma Brother Neck Pain Brother Severe Stenosis Arthritis-rheumatoid Daughter Juvenille Arthritis Father Migraines Maternal Grandfather Arthritis Mother Mild Cancer Mother hx breast cancer Migraines Other uncles Relation Name Status Comments Brother Alive Brother Alive Daughter Alive Father Alive Maternal Grandfather Mother Alive Other uncles Alive Son Alive Social History Date Tobacco Use Types Packs/Day Years Used Never Smoker Smokeless Tobacco: Never Used Tobacco Cessation: Counseling Given: No Drinks/Week oz/Week Comments Alcohol Use 0 Standard drinks or equivalent 0.0 Once or twice a year Yes Sex Assigned at Date Recorded Not on file Last Filed Vital Signs Reading Time Taken Comments Vital Sign 107/63 01/18/2016 9:18 AM CDT Blood Pressure 70 01/18/2016 9:18 AM CDT Pulse 36.8 C (98.3 F) 01/18/2016 9:18 AM CDT Temperature 16 01/18/2016 9:18 AM CDT Respiratory Rate 100% 01/18/2016 9:18 AM CDT Oxygen Saturation - - Inhaled Oxygen Concentration 70.3 kg (155 lb) 01/18/2016 9:18 AM CDT Weight 171.5 cm (5' 7.5") 01/18/2016 9:18 AM CDT Height 23.92 01/18/2016 9:18 AM CDT Body Mass Index Plan of Treatment Health Maintenance Due Date Last Done Comments HIV SCREENING 12/19/1994 DTAP/TDAP VACCINES (1 - 12/19/1997 Tdap) HEPATITIS C SCREENING 12/19/1997 PHYSICAL (COMPREHENSIVE) 12/19/1997 EXAM CERVICAL CANCER SCREENING 12/19/2000 BREAST CANCER SCREENING 2019 INFLUENZA VACCINE 03/25/2021 Results Not on filefrom Last 3 Months Insurance Type Payer Benefit Subscriber ID Effective Phone Address Plan / Dates Group PPO BCBS [facility] [id number] 2015-P [facility] resent [address] [phone] Advance Directives Patient Electronic Gluer Explanation Type Date Recorded Advance 01/10/2016 11:47 AM Directive/DPOA
== END 2021-02-02 07:02 | disposition home or self-care (01) ==
LOC: EDUNIT# 06:00 → ER FS 06:01
DX: G44.209 Tension-type headache, unspecified, not intractable (principal); G43.009 Migraine without aura, not intractable, without status migrainosus; F41.9 Anxiety disorder, unspecified
CPT/HCPCS: 99284

== ENCOUNTER 2021-04-14 05:37 | Emergency (ER) | payer MEDICARE ==
[2021-04-14] MEDS ORDERED: diphenhydrAMINE 50 MG/ML INJ (BENADRYL) IM ONE (06:30)
[2021-04-14] MEDS ORDERED: KETOROLAC 60 MG/2 ML VIAL IM ONE (06:30)
[2021-04-14] MEDS ORDERED: PROMETHAZINE INJ 25 MG/ML (PHENERGAN) AMP IM ONE (06:30)
[2021-04-14] MEDS ORDERED: diphenhydrAMINE 50 MG/ML INJ (BENADRYL) IVP ONE (06:30)
--- NOTE | 2021-04-14 06:39 | ED Headache ---
General Chief Complaint: Head/Cervical Problems Stated Complaint: HEADACHE Nursing Triage Note: PT REPORTS TO ER FROM HOME VIA POV WITH C/O HEADACHE(MIGRAINE) X2 DAYS. PT STATES THIS IS CHRONIC ISSUE AND SHE HAS AN APPT WITH HER NEUROLOGIST SCHEDULED AT END OF MARCH FOR BOTOX INJECTION. PT TOOK EXCEDRIN ON SUNDAY WITHOUT RELIEF. Source: patient History of Present Illness Date Seen by Provider: Apr 14, 2021 Time Seen by Provider: 06:00 Initial Comments Patient is a 40-year-old female history of chronic recurrent migraines well- known to this emergency department presents with typical migraine headache starting 2 days ago. Headache is frontal retro-orbital moderate to severe associated nausea vomiting and light sensitivity. Patient is taking her routine medications at home without improvement. She has appointment to see her neuro logist later this month. No fever chills, sweats, neck pain, stiffness or rash. No Other symptoms or complaints. 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 7 years ago Timing/Duration: other Severity/Quality: moderate (2 to 3 days) Location: frontal Prior Headaches/Recent Trauma: frequent headaches, chronic headaches Modifying Factors: improves with medication Associated Symptoms: nausea/vomiting Allergies and Home Medications Allergies Coded Allergies: Sulfa (Sulfonamide Antibiotics) (Verified Allergy, Mild, Itching, 03/14/19) cefuroxime (Verified Allergy, Unknown, 08/21/18) haloperidol (Verified Allergy, Unknown, 10/31/18) magnesium (Verified Allergy, Unknown, 08/21/18) prochlorperazine (Verified Allergy, Unknown, rash, 08/21/18) topiramate (Verified Allergy, Unknown, 08/21/18) tramadol (Verified Allergy, Unknown, 10/31/18) Uncoded Allergies: DHE (Allergy, Unknown, 10/31/18) Patient Home Medication List Home Medication List Reviewed: Yes Bupropion HCl (Bupropion HCl Sr) 150 Mg Tablet.er, (Reported) Entered as Reported by: PARESH KNOTT on 08/22/18 1024 Butalbital/Aspirin/Caffeine (Fiorinal 50-325-40 mg Capsule) 1 Each Capsule, 1 EACH PO TID PRN for Headache Prescribed by: MELANIE CLAYTON on 09/02/19 015 Butorphanol Tartrate (Butorphanol Tartrate) 25 Mg [place], (Reported) Entered as Reported by: PARESH KNOTT on 08/22/18 1024 Clindamycin HCl (Clindamycin HCl) 300 Mg Capsule, (Reported) Entered as Reported by: TRACEY RAZO on 10/31/18 1716 Cyclobenzaprine HCl (Cyclobenzaprine HCl) 10 Mg Tablet, 10 MG PO Q8H PRN for SPASMS Prescribed by: JAXSON ANDERSON on 10/31/18 1810 Ibuprofen (Ibuprofen) 800 Mg Tablet, 800 MG PO Q8H PRN for PAIN Prescribed by: HERON PERLA on 01/06/21 1643 Levothyroxine Sodium (Synthroid) 50 Mcg Tablet, (Reported) Entered as Reported by: PARESH KNOTT on 08/22/18 1024 Levothyroxine Sodium (Synthroid) 200 Mcg Tablet, (Reported) Entered as Reported by: PARESH KNOTT on 08/22/18 1024 Lorazepam (Lorazepam) 1 Mg Tablet, (Reported) Entered as Reported by: PARESH KNOTT on 08/22/18 1024 Promethazine HCl (Promethazine HCl) 50 Mg Supp.rect, 50 MG RC Q8H Prescribed by: TRISTEN LANDRY on 11/29/19 1555 Propranolol HCl (Propranolol HCl) 20 Mg Tablet, (Reported) Entered as Reported by: PARESH KNOTT on 08/22/18 1024 Venlafaxine HCl (Venlafaxine HCl ER) 150 Mg Cap.er.24h, (Reported) Entered as Reported by: PARESH KNOTT on 08/22/18 1024 Zolpidem Tartrate (Zolpidem Tartrate) 5 Mg Tablet, (Reported) Entered as Reported by: PARESH KNOTT on 08/22/18 1024 Review of Systems Review of Systems Constitutional: see HPI Ears, Nose, Mouth, Throat: see HPI Respiratory: see HPI Cardiovascular: see HPI Gastrointestinal: see HPI Genitourinary: see HPI Musculoskeletal: see HPI Skin: see HPI Psychiatric/Neurological: See HPI All Other Systems Reviewed Negative Unless Noted: Yes Past Zqhjauu-Ewwfdr-Gotsaq Hx Patient Social History Tobacco Use?: Yes Smoking Status: Never a Smoker Use of E-Cig and/or Vaping dev: No Substance use?: No Alcohol Use?: Yes Alcohol type: Beer, Wine Alcohol Frequency: Rarely Pt feels they are or have been: No Immunizations Up To Date Influenza Vaccine Up-to-Date: No; Not Current First/Initial COVID19 Vaccinat: September COVID19 Vaccination Francis: OCTOBER 2020 COVID19 Vaccine Celluloid Trimmer: ROBI Seasonal Allergies Seasonal Allergies: No Past Medical History Surgeries: Yes 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 Respiratory: No Cardiac: No Neurological: Yes 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 oz. [id number]; 22.00 BMI Method:Stated General Appearance: no apparent distress, other (Anxious) HEENT: normal ENT inspection Neck: full range of motion Cardiovascular: regular rate, rhythm Respiratory: lungs clear Motor/Sensory: no motor deficit Progress/Results/Core Measures Results/Orders My Orders Orders - TRISTEN LANDRY DO Ketorolac Injection (Toradol Injection) (04/14/21 06:30) Promethazine Injection (Phenergan Injec (04/14/21 06:30) Diphenhydramine Injection (Benadryl Inje (04/14/21 06:30) Vital Signs/I&O 04/14/21 04/14/21 05:42 05:42 Temp 36.6 36.6 Pulse 112 112 Resp 12 12 B/P (MAP) 127/94 127/94 (105) Pulse Ox 99 99 O2 Delivery Room Air Room Air Blood Pressure Mean: 105 Departure Communication (Admissions) Chronic recurrent migraine headache without neurologic deficits. Typical migraine cocktail given with provement of symptoms. Outpatient neurology follow-up is recommended. Impression Primary Impression: Migraine Disposition: 01 HOME, SELF-CARE Condition: Stable Departure-Patient Inst. Decision time for Depature: 06:38 Referrals: SABINA VELOZ MD (PCP/Family) Primary Care Physician Patient Instructions: Migraines in Adults Add. Discharge Instructions: Please continue home medications and follow-up with your neurologist as schedule d. All discharge instructions reviewed with patient and/or family. Voiced understanding. TRISTEN LANDRY DO Apr 14, 2021 06:38
[2021-04-14 06:42] VITALS: BP 122/82
== END 2021-04-14 06:44 | disposition home or self-care (01) ==
LOC: EDUNIT# 05:37 → ER FS 05:39
DX: G43.909 Migraine, unspecified, not intractable, without status migrainosus (principal); F41.9 Anxiety disorder, unspecified; F32.9 Major depressive disorder, single episode, unspecified; Z72.0 Tobacco use; Z79.899 Other long term (current) drug therapy
CPT/HCPCS: 96372; 99284

== ENCOUNTER 2021-04-27 04:48 | Emergency (ER) | payer MEDICARE ==
[~2021-04-27] VITALS: Ht 170 cm; Wt 68.0 kg
[~2021-04-27 04:48] MED LIST changes: +CLIN-144; -CLIN300C12
[2021-04-27] MEDS ORDERED: KETOROLAC 60 MG/2 ML VIAL IM STA (04:55)
[2021-04-27] MEDS ORDERED: diphenhydrAMINE 50 MG/ML INJ (BENADRYL) IM STA (04:55)
[2021-04-27] MEDS ORDERED: PROMETHAZINE INJ 25 MG/ML (PHENERGAN) AMP IM STA (04:55)
--- NOTE | 2021-04-27 05:11 | ED Headache ---
General Chief Complaint: Head/Cervical Problems Stated Complaint: HEADACHE Source: patient, old records History of Present Illness Date Seen by Provider: Apr 27, 2021 Time Seen by Provider: 04:50 Initial Comments 40 yo female presenting with recurrent migraine headache. she states it feels like her usual headache. She has had t his since Sunday evening. she has been taking her usual medicine at home without relief. She last took excedrin Migraine. she has had some dry heaves and vomiting acid. She denies fever or chills, numbness, weakness, change in vision, diarrhea, pain with urination. She has been exposed to strep with her Son as he tested positive on Sunday, but she has not had sore throat or fever. She has had some ringing in her ears this morning but that is not unusual for her severe migraine headaches. She denies any head trauma. She is overdue for her Botox shots as they were to be done around Apr 13 and she is waiting on insurance to get things worked out with her Neurologist. Prior Headaches/Recent Trauma: frequent headaches Associated Symptoms: No confusion; fatigue; No facial pain, No fever/chills, No flushing, No loss of consciousness; nausea/vomiting; No nasal congestion, No nasal drainage, No numbness in legs/feet, No rash, No seizures, No sinus infection, No stiff neck, No vision changes, No weakness Allergies and Home Medications Allergies Coded Allergies: Sulfa (Sulfonamide Antibiotics) (Verified Allergy, Mild, Itching, 03/14/19) cefuroxime (Verified Allergy, Unknown, 08/21/18) haloperidol (Verified Allergy, Unknown, 10/31/18) magnesium (Verified Allergy, Unknown, 08/21/18) prochlorperazine (Verified Allergy, Unknown, rash, 08/21/18) topiramate (Verified Allergy, Unknown, 08/21/18) tramadol (Verified Allergy, Unknown, 10/31/18) Uncoded Allergies: DHE (Allergy, Unknown, 10/31/18) Patient Home Medication List Home Medication List Reviewed: Yes Bupropion HCl (Bupropion HCl Sr) 150 Mg Tablet.er, (Reported) Entered as Reported by: PARESH KNOTT on 08/22/18 1024 Butalbital/Aspirin/Caffeine (Fiorinal 50-325-40 mg Capsule) 1 Each Capsule, 1 EACH PO TID PRN for Headache Prescribed by: MELANIE CLAYTON on 09/02/19 1856 Butorphanol Tartrate (Butorphanol Tartrate) 25 Mg [place], (Reported) Entered as Reported by: PARESH KNOTT on 08/22/18 1024 Clindamycin HCl (Clindamycin HCl) 300 Mg Capsule, (Reported) Entered as Reported by: TRACEY RAZO on 10/31/18 1716 Cyclobenzaprine HCl (Cyclobenzaprine HCl) 10 Mg Tablet, 10 MG PO Q8H PRN for SPASMS Prescribed by: JAXSON ANDERSON on 10/31/18 1810 Ibuprofen (Ibuprofen) 800 Mg Tablet, 800 MG PO Q8H PRN for PAIN Prescribed by: HERON PERLA on 01/06/21 1643 Levothyroxine Sodium (Synthroid) 50 Mcg Tablet, (Reported) Entered as Reported by: PARESH KNOTT on 08/22/18 1024 Levothyroxine Sodium (Synthroid) 200 Mcg Tablet, (Reported) Entered as Reported by: PARESH KNOTT on 08/22/18 1024 Lorazepam (Lorazepam) 1 Mg Tablet, (Reported) Entered as Reported by: PARESH KNOTT on 08/22/18 1024 Promethazine HCl (Promethazine HCl) 50 Mg Supp.rect, 50 MG RC Q8H Prescribed by: TRISTEN LANDRY on 11/29/19 1555 Propranolol HCl (Propranolol HCl) 20 Mg Tablet, (Reported) Entered as Reported by: PARESH KNOTT on 08/22/18 1024 Venlafaxine HCl (Venlafaxine HCl ER) 150 Mg Cap.er.24h, (Reported) Entered as Reported by: PARESH KNOTT on 08/22/18 1024 Zolpidem Tartrate (Zolpidem Tartrate) 5 Mg Tablet, (Reported) Entered as Reported by: PARESH KNOTT on 08/22/18 1024 Review of Systems Review of Systems Constitutional: No chills, No fever Eyes: Photophobia; Denies Vision Changes Ears, Nose, Mouth, Throat: denies nose discharge, denies epistaxis, denies mouth pain, denies throat pain Respiratory: No cough Cardiovascular: no symptoms reported Gastrointestinal: see HPI Genitourinary: No dysuria Musculoskeletal: muscle pain (trapezius and paraspinal cervical muscle spasms and pain); No neck pain Skin: No rash Psychiatric/Neurological: See HPI, Anxiety Past Tofzofc-Xpqnpe-Cepdku Hx Immunizations Up To Date First/Initial COVID19 Vaccinat: SEPTEMBER Second COVID19 Vaccination Francis: OCTOBER 2020 Seasonal Allergies Seasonal Allergies: No Past Medical History Surgeries: Yes 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 Respiratory: No Cardiac: No Neurological: Yes 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 oz. 70.950940pv; 22.00 BMI Method:Stated General Appearance: mild distress, other (anxious. wearing sunglasses) HEENT: PERRL/EOMI, normal ENT inspection, TMs normal, pharynx normal, photophobia; No tonsillar exudate; other (TM clear bilaterally without effusion or erythema or dullness) Neck: full range of motion, supple, tender lateral (muscle spasm to palpation left greater than right trapezius and paraspinal cervical muscles) Cardiovascular: normal peripheral pulses, regular rate, rhythm Respiratory: chest non-tender, lungs clear, normal breath sounds, no respirator y distress, no accessory muscle use Gastrointestinal: normal bowel sounds, non tender, soft, no pulsatile mass Extremities: normal range of motion, non-tender, normal capillary refill Psychiatric: alert, oriented x 3, other (anxious) Crainal Nerves: normal hearing, normal speech, PERRL Coordination/Gait: normal gait Motor/Sensory: no motor deficit, no sensory deficit Skin: normal color, warm/dry Progress/Results/Core Measures Results/Orders My Orders Orders - SUSANA LOPEZ MD Ketorolac Injection (Toradol Injection) (04/27/21 04:55) Diphenhydramine Injection (Benadryl Inje (04/27/21 04:55) Promethazine Injection (Phenergan Injec (04/27/21 04:55) Progress Progress Note : Progress Note Since pt reports this feels like her typical migraine headache with some of her more severe features of ringing or buzzing in ears. She has no signs of nuchal rigidity, fever, acute infection. Will treat with medicines that have helped her in the past of Toradol 60 mg IM, Benadryl 50 mg IM, Phenergan 50 mg IM. Encouraged to rest in cool dark room. Continue home meds and work with insurance and neurology about Botox shots and follow up. Departure Impression Primary Impression: Migraine headache without aura Qualified Codes: G43.009 - Migraine without aura, not intractable, without status migrainosus Additional Impression: Anxiety Disposition: HOME, SELF-CARE Condition: Stable Departure-Patient Inst. Decision time for Depature: 05:11 Referrals: SABINA VELOZ MD (PCP/Family) Primary Care Physician Patient Instructions: Anxiety, Adult ED, Migraines in Adults Add. Discharge Instructions: Continue on your regular medicines and continue to work on getting in with Neur ology for your Botox injections. All discharge instructions reviewed with patient and/or family. Voiced understanding. SUSANA LOPEZ MD Apr 27, 2021 05:11
[2021-04-27 05:21] VITALS: BP 135/70
== END 2021-04-27 05:21 | disposition home or self-care (01) ==
LOC: EDUNIT# 04:48 → ER FS 04:50
DX: G43.009 Migraine without aura, not intractable, without status migrainosus (principal); F41.9 Anxiety disorder, unspecified; F32.9 Major depressive disorder, single episode, unspecified; Z79.899 Other long term (current) drug therapy
CPT/HCPCS: 99284

== ENCOUNTER 2021-05-26 02:57 | Emergency (ER) | payer MEDICARE ==
[~2021-05-26] VITALS: Ht 170 cm; Wt 68.0 kg
[~2021-05-26 02:57] MED LIST changes: +CYCL10TA25 PO; -CYCL10TA9 PO
[2021-05-26] MEDS ORDERED: KETOROLAC 60 MG/2 ML VIAL IM ONE (03:30)
[2021-05-26] MEDS ORDERED: PROMETHAZINE INJ 25 MG/ML (PHENERGAN) AMP IM ONE (03:30)
[2021-05-26] MEDS ORDERED: diphenhydrAMINE 50 MG/ML INJ (BENADRYL) IM ONE (03:30)
--- NOTE | 2021-05-26 04:18 | ED Headache ---
General Chief Complaint: Head/Cervical Problems Stated Complaint: HEADACHE Source: patient, old records Exam Limitations: no limitations History of Present Illness Date Seen by Provider: May 26, 2021 Time Seen by Provider: 03:20 Initial Comments This 40-year-old woman presents to the emergency room with migraine headache for 3 days. She is accustomed to having severe migraines and frequently seeks treatment in the emergency room. She receives high doses of Benadryl, Phenergan, and Toradol for treatment and request those medications today. She has had some nausea and vomiting tonight. Zofran, Excedrin Migraine and Benadryl last night did not improve her pain. Allergies and Home Medications Allergies Coded Allergies: Sulfa (Sulfonamide Antibiotics) (Verified Allergy, Mild, Itching, 03/14/19) cefuroxime (Verified Allergy, Unknown, 08/21/18) haloperidol (Verified Allergy, Unknown, 10/31/18) magnesium (Verified Allergy, Unknown, 08/21/18) prochlorperazine (Verified Allergy, Unknown, rash, 08/21/18) topiramate (Verified Allergy, Unknown, 08/21/18) tramadol (Verified Allergy, Unknown, 10/31/18) Uncoded Allergies: DHE (Allergy, Unknown, 10/31/18) Patient Home Medication List Home Medication List Reviewed: Yes Bupropion HCl (Bupropion HCl Sr) 150 Mg Tablet.er, (Reported) Entered as Reported by: PARESH KNOTT on 08/22/18 1024 Butalbital/Aspirin/Caffeine (Fiorinal 50-325-40 mg Capsule) 1 Each Capsule, 1 EACH PO TID PRN for Headache Prescribed by: MELANIE CLAYTON on 09/02/19 1856 Butorphanol Tartrate (Butorphanol Tartrate) 25 Mg [place], (Reported) Entered as Reported by: PARESH KNOTT on 08/22/18 1024 Clindamycin HCl (Clindamycin HCl) 300 Mg Capsule, (Reported) Entered as Reported by: TRACEY RAZO on 10/31/18 1716 Cyclobenzaprine HCl (Cyclobenzaprine HCl) 10 Mg Tablet, 10 MG PO Q8H PRN for SPASMS Prescribed by: JAXSON ANDERSON on 10/31/18 181 Ibuprofen (Ibuprofen) 800 Mg Tablet, 800 MG PO Q8H PRN for PAIN Prescribed by: HERON PERLA on 01/06/21 1643 Levothyroxine Sodium (Synthroid) 50 Mcg Tablet, (Reported) Entered as Reported by: PARESH KNOTT on 08/22/18 1024 Levothyroxine Sodium (Synthroid) 200 Mcg Tablet, (Reported) Entered as Reported by: PARESH KNOTT on 08/22/18 1024 Lorazepam (Lorazepam) 1 Mg Tablet, (Reported) Entered as Reported by: PARESH KNOTT on 08/22/18 1024 Promethazine HCl (Promethazine HCl) 50 Mg Supp.rect, 50 MG RC Q8H Prescribed by: TRISTEN LANDRY on 11/29/19 1555 Propranolol HCl (Propranolol HCl) 20 Mg Tablet, (Reported) Entered as Reported by: PARESH KNOTT on 08/22/18 1024 Venlafaxine HCl (Venlafaxine HCl ER) 150 Mg Cap.er.24h, (Reported) Entered as Reported by: PARESH KNOTT on 08/22/18 1024 Zolpidem Tartrate (Zolpidem Tartrate) 5 Mg Tablet, (Reported) Entered as Reported by: PARESH KNOTT on 08/22/18 1024 Review of Systems Review of Systems Constitutional: no symptoms reported Eyes: Photophobia Ears, Nose, Mouth, Throat: no symptoms reported Respiratory: no symptoms reported Cardiovascular: no symptoms reported Gastrointestinal: see HPI Genitourinary: no symptoms reported : No Musculoskeletal: no symptoms reported Skin: no symptoms reported Psychiatric/Neurological: See HPI Past Teihipa-Jokoyj-Mjpowl Hx Patient Social History Tobacco Use?: No Use of E-Cig and/or Vaping dev: No Substance use?: No Alcohol Use?: No Pt feels they are or have been: No Immunizations Up To Date First/Initial COVID19 Vaccinat: September COVID19 Vaccination Francis: OCTOBER 2020 Seasonal Allergies Seasonal Allergies: No Past Medical History Surgeries: Yes 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 Respiratory: No Cardiac: No Neurological: Yes 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 oz. 70.563108ct; 23.00 BMI Method:Stated General Appearance: WD/WN, mild distress HEENT: PERRL/EOMI, normal ENT inspection, other (Oropharynx somewhat dry) Neck: normal inspection Cardiovascular: regular rate, rhythm, no edema, no murmur Respiratory: lungs clear, normal breath sounds, no respiratory distress Gastrointestinal: normal bowel sounds, non tender, soft Extremities: normal inspection, no pedal edema Psychiatric: alert, oriented x 3 Crainal Nerves: normal hearing, normal speech Coordination/Gait: normal gait Motor/Sensory: no motor deficit, no sensory deficit Skin: normal color, warm/dry Progress/Results/Core Measures Results/Orders My Orders Orders - PEÑA MONTANEZ MD Promethazine Injection (Phenergan Injec (05/26/21 03:30) Ketorolac Injection (Toradol Injection) (05/26/21 03:30) Diphenhydramine Injection (Benadryl Inje (05/26/21 03:30) Medications Given in ED Current Medications Medications Dose Ordered Sig/Shell Route Start Time Stop Time Status Last Admin Dose Admin Diphenhydramine HCl 50 mg ONCE ONCE IM 05/26/21 03:30 05/26/21 03:31 DC 05/26/21 03:55 50 MG Ketorolac Tromethamine 60 mg ONCE ONCE IM 05/26/21 03:30 05/26/21 03:31 DC 05/26/21 03:54 60 MG Promethazine HCl 50 mg ONCE ONCE IM 05/26/21 03:30 05/26/21 03:31 DC 05/26/21 03:55 50 MG Vital Signs/I&O 05/26/21 05/26/21 03:05 04:24 Temp 36.8 Pulse 107 105 Resp 16 14 B/P (MAP) 133/82 (99) 117/83 Pulse Ox 100 99 O2 Delivery Room Air Room Air Blood Pressure Mean: 99 Progress Progress Note : Progress Note Patient was offered IV fluids and medications which she declined stating that IVs are very difficult on her and anxiety provoking. She prefers ejection therapies. She was given her usual cocktail of Toradol, Benadryl, and Phenergan. She was demonstrating improvement in symptoms and was discharged home. Departure Impression Primary Impression: Migraine Qualified Codes: G43.909 - Migraine, unspecified, not intractable, without status migrainosus Additional Impression: Nausea and vomiting Qualified Codes: R11.2 - Nausea with vomiting, unspecified Disposition: 01 HOME, SELF-CARE Condition: Improved Departure-Patient Inst. Decision time for Depature: 04:17 Referrals: SABINA VELOZ MD (PCP/Family) Primary Care Physician Patient Instructions: Migraines (DC) Add. Discharge Instructions: When you return home try to drink plenty of clear liquids to rehydrate. Rest in a quiet, calm, dark environment for the rest of the morning. Call with questions or concerns. Return to the ER if you have worsening symptoms. Follow-up with your primary care provider and/or neurologist as soon as possible to discuss further management of migraines. All discharge instructions reviewed with patient and/or family. Voiced understanding. Copy Copies To 1: SABINA VELOZ MD, JOSHUA T MD May 26, 2021 04:18
[2021-05-26 04:24] VITALS: BP 117/83
== END 2021-05-26 04:20 | disposition home or self-care (01) ==
LOC: EDUNIT# 02:57 → ER FS 02:59
DX: G43.909 Migraine, unspecified, not intractable, without status migrainosus (principal); F41.9 Anxiety disorder, unspecified; F32.9 Major depressive disorder, single episode, unspecified; Z79.899 Other long term (current) drug therapy
CPT/HCPCS: 99284

== ENCOUNTER 2021-06-05 05:04 | Emergency (ER) | payer MEDICARE ==
[~2021-06-05] VITALS: Ht 170 cm; Wt 68.0 kg
[2021-06-05] MEDS ORDERED: KETOROLAC 60 MG/2 ML VIAL IM STA (05:09)
[2021-06-05] MEDS ORDERED: PROMETHAZINE INJ 25 MG/ML (PHENERGAN) AMP IM STA (05:09)
[2021-06-05] MEDS ORDERED: diphenhydrAMINE 50 MG/ML INJ (BENADRYL) IM STA (05:09)
--- NOTE | 2021-06-05 05:18 | ED Headache ---
General Stated Complaint: HEADACHE Source: patient History of Present Illness Date Seen by Provider: Jun 05, 2021 Time Seen by Provider: 05:08 Initial Comments 40-year-old female presenting with complaints of migraine headache. She reports this feels like her usual migraine headache but she has had an episode of nausea and vomiting. She has majority of her pain on the left side in the back of her neck. She has light sensitivity. She denies any fever or chills. She has had Excedrin Migraine at home without improvement. No recent head trauma. Timing/Duration: 24 hours Severity/Quality: severe Location: occipital (Left side) Prior Headaches/Recent Trauma: frequent headaches, chronic headaches Associated Symptoms: No confusion; fatigue; No facial pain, No fever/chills, No flushing, No loss of consciousness; nausea/vomiting; No nasal congestion, No nasal drainage, No numbness in legs/feet, No rash, No seizures, No sinus infection, No stiff neck, No vision changes, No weakness Allergies and Home Medications Allergies Coded Allergies: Sulfa (Sulfonamide Antibiotics) (Verified Allergy, Mild, Itching, 03/14/19) cefuroxime (Verified Allergy, Unknown, 08/21/18) haloperidol (Verified Allergy, Unknown, 10/31/18) magnesium (Verified Allergy, Unknown, 08/21/18) prochlorperazine (Verified Allergy, Unknown, rash, 08/21/18) topiramate (Verified Allergy, Unknown, 08/21/18) tramadol (Verified Allergy, Unknown, 10/31/18) Uncoded Allergies: DHE (Allergy, Unknown, 10/31/18) Patient Home Medication List Home Medication List Reviewed: Yes Bupropion HCl (Bupropion HCl Sr) 150 Mg Tablet.er, (Reported) Entered as Reported by: PARESH KNOTT on 08/22/18 1024 Butalbital/Aspirin/Caffeine (Fiorinal 50-325-40 mg Capsule) 1 Each Capsule, 1 EACH PO TID PRN for Headache Prescribed by: MELANIE CLAYTON on 09/02/19 1856 Butorphanol Tartrate (Butorphanol Tartrate) 25 Mg [place], (Reported) Entered as Reported by: PARESH KNOTT on 08/22/18 1024 Clindamycin HCl (Clindamycin HCl) 300 Mg Capsule, (Reported) Entered as Reported by: TRACEY RAZO on 10/31/18 1716 Cyclobenzaprine HCl (Cyclobenzaprine HCl) 10 Mg Tablet, 10 MG PO Q8H PRN for SPASMS Prescribed by: JAXSON ANDERSON on 10/31/18 1810 Ibuprofen (Ibuprofen) 800 Mg Tablet, 800 MG PO Q8H PRN for PAIN Prescribed by: HERON TELLESVENSTANDRA on 01/06/21 1643 Levothyroxine Sodium (Synthroid) 50 Mcg Tablet, (Reported) Entered as Reported by: PARESH KNOTT on 08/22/18 1024 Levothyroxine Sodium (Synthroid) 200 Mcg Tablet, (Reported) Entered as Reported by: PARESH KNOTT on 08/22/18 1024 Lorazepam (Lorazepam) 1 Mg Tablet, (Reported) Entered as Reported by: PARESH KNOTT on 08/22/18 1024 Promethazine HCl (Promethazine HCl) 50 Mg Supp.rect, 50 MG RC Q8H Prescribed by: TRISTEN LANDRY on 11/29/19 1555 Propranolol HCl (Propranolol HCl) 20 Mg Tablet, (Reported) Entered as Reported by: PARESH KNOTT on 08/22/18 1024 Venlafaxine HCl (Venlafaxine HCl ER) 150 Mg Cap.er.24h, (Reported) Entered as Reported by: PARESH KNOTT on 08/22/18 1024 Zolpidem Tartrate (Zolpidem Tartrate) 5 Mg Tablet, (Reported) Entered as Reported by: PARESH KNOTT on 08/22/18 1024 Review of Systems Review of Systems Constitutional: No chills, No fever Eyes: Photophobia Ears, Nose, Mouth, Throat: no symptoms reported Respiratory: no symptoms reported Cardiovascular: no symptoms reported Gastrointestinal: see HPI Genitourinary: no symptoms reported Musculoskeletal: no symptoms reported Skin: No rash Psychiatric/Neurological: See HPI, Anxiety, Headache Past Uksozfz-Fcrtxu-Xozofi Hx Immunizations Up To Date First/Initial COVID19 Vaccinat: September COVID19 Vaccination Francis: OCTOBER 2020 Seasonal Allergies Seasonal Allergies: No Past Medical History Surgery/Hospitalization HX: Chronic migraines and anxiety Surgeries: Yes 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 Respiratory: No Cardiac: No Neurological: Yes Headaches /Migraines [employer]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 oz. [id number]; 23.00 BMI Method:Stated General Appearance: WD/WN, mild distress, other (Anxious. Wearing sunglasses) HEENT: PERRL/EOMI, pharynx normal Neck: non-tender, full range of motion, supple, normal inspection Cardiovascular: normal peripheral pulses, regular rate, rhythm Respiratory: chest non-tender, lungs clear, normal breath sounds, no respiratory distress, no accessory muscle use Gastrointestinal: normal bowel sounds, soft, no pulsatile mass Extremities: normal range of motion, non-tender, normal capillary refill Psychiatric: alert, oriented x 3 Crainal Nerves: normal hearing, normal speech, PERRL Coordination/Gait: normal gait Skin: normal color, warm/dry Progress/Results/Core Measures Results/Orders My Orders Orders - SUSANA LOPEZ MD Diphenhydramine Injection (Benadryl Inje (06/05/21 05:09) Ketorolac Injection (Toradol Injection) (06/05/21 05:09) Promethazine Injection (Phenergan Injec (06/05/21 05:09) Vital Signs/I&O 06/05/21 05:13 Temp 36.8 Pulse 94 Resp 15 B/P (MAP) 134/90 (105) Pulse Ox 100 O2 Delivery Room Air Progress Progress Note : Progress Note With patient reporting typical symptoms for her migraine headaches but unable to keep medicines down at home or have improved symptoms at home will administer intramuscular injections of Benadryl 50 mg, Toradol 60 mg, Phenergan 50 mg. Discharged to rest in a cool dark room. Counseled to follow-up with her primary provider and neurologist. Departure Impression Primary Impression: Migraine headache without aura Qualified Codes: G43.019 - Migraine without aura, intractable, without status migrainosus Additional Impression: Nausea and vomiting Qualified Codes: R11.14 - Bilious vomiting Disposition: 01 HOME, SELF-CARE Condition: Stable Departure-Patient Inst. Decision time for Depature: 05:17 Referrals: SABINA VELOZ MD (PCP/Family) Primary Care Physician Patient Instructions: Migraines (DC) Add. Discharge Instructions: Rest in a cool dark room Continue with your routine medicines Follow up with clinic for continued concerns SUSANA LOPEZ MD Jun 05, 2021 05:17
[2021-06-05 05:30] VITALS: BP 134/90
== END 2021-06-05 05:30 | disposition home or self-care (01) ==
LOC: EDUNIT# 05:04 → ER FS 05:06
DX: G43.009 Migraine without aura, not intractable, without status migrainosus (principal); R11.2 Nausea with vomiting, unspecified; F41.9 Anxiety disorder, unspecified; F32.9 Major depressive disorder, single episode, unspecified; Z79.899 Other long term (current) drug therapy
CPT/HCPCS: 96372; 99284

== ENCOUNTER 2021-06-22 03:31 | Emergency (ER) | payer MEDICARE ==
[~2021-06-22] VITALS: Ht 170 cm; Wt 68.0 kg
[2021-06-22] MEDS ORDERED: PROMETHAZINE INJ 25 MG/ML (PHENERGAN) AMP IM STA (03:36)
[2021-06-22] MEDS ORDERED: KETOROLAC 60 MG/2 ML VIAL IM STA (03:36)
[2021-06-22] MEDS ORDERED: diphenhydrAMINE 50 MG/ML INJ (BENADRYL) IM STA (03:36)
[2021-06-22 03:38] VITALS: BP 131/95
--- NOTE | 2021-06-22 03:51 | ED Headache ---
General Chief Complaint: Head/Cervical Problems Stated Complaint: HEADACHE Source: patient, old records History of Present Illness Date Seen by Provider: Jun 22, 2021 Time Seen by Provider: 03:36 Initial Comments 40-year-old female presenting with recurrent migraine headache. She states this feels like her usual migraine headache on the left side. She also strained and pulled her back with doing laundry. She has been under extra stress recently with her daughter having abdominal pain, building a new house with her family. She has been dealing with this headache since this Sunday. She has tried her usual medications and treatments at home without any significant improvement. She denies any fever, chills, cough, sore throat, numbness or tingling in her arms or legs. Allergies and Home Medications Allergies Coded Allergies: Sulfa (Sulfonamide Antibiotics) (Verified Allergy, Mild, Itching, 03/14/19) cefuroxime (Verified Allergy, Unknown, 08/21/18) haloperidol (Verified Allergy, Unknown, 10/31/18) magnesium (Verified Allergy, Unknown, 08/21/18) prochlorperazine (Verified Allergy, Unknown, rash, 08/21/18) topiramate (Verified Allergy, Unknown, 08/21/18) tramadol (Verified Allergy, Unknown, 10/31/18) Uncoded Allergies: DHE (Allergy, Unknown, 10/31/18) Patient Home Medication List Home Medication List Reviewed: Yes Bupropion HCl (Bupropion HCl Sr) 150 Mg Tablet.er, (Reported) Entered as Reported by: PARESH KNOTT on 08/22/18 1024 Butalbital/Aspirin/Caffeine (Fiorinal 50-325-40 mg Capsule) 1 Each Capsule, 1 EACH PO TID PRN for Headache Prescribed by: MELANIE CLAYTON on 09/02/19 1856 Butorphanol Tartrate (Butorphanol Tartrate) 25 Mg [place], (Reported) Entered as Reported by: PARESH KNOTT on 08/22/18 1024 Clindamycin HCl (Clindamycin HCl) 300 Mg Capsule, (Reported) Entered as Reported by: TRACEY RAZO on 10/31/18 1716 Cyclobenzaprine HCl (Cyclobenzaprine HCl) 10 Mg Tablet, 10 MG PO Q8H PRN for SPASMS Prescribed by: JAXSON ANDERSON on 10/31/18 1810 Ibuprofen (Ibuprofen) 800 Mg Tablet, 800 MG PO Q8H PRN for PAIN Prescribed by: HERON PERLA on 01/06/21 1643 Levothyroxine Sodium (Synthroid) 50 Mcg Tablet, (Reported) Entered as Reported by: PARESH KNOTT on 08/22/18 1024 Levothyroxine Sodium (Synthroid) 200 Mcg Tablet, (Reported) Entered as Reported by: PARESH KNOTT on 08/22/18 1024 Lorazepam (Lorazepam) 1 Mg Tablet, (Reported) Entered as Reported by: PARESH KNOTT on 08/22/18 1024 Promethazine HCl (Promethazine HCl) 50 Mg Supp.rect, 50 MG RC Q8H Prescribed by: TRISTEN LANDRY on 11/29/19 1555 Propranolol HCl (Propranolol HCl) 20 Mg Tablet, (Reported) Entered as Reported by: PARESH KNOTT on 08/22/18 1024 Venlafaxine HCl (Venlafaxine HCl ER) 150 Mg Cap.er.24h, (Reported) Entered as Reported by: PARESH KNOTT on 08/22/18 1024 Zolpidem Tartrate (Zolpidem Tartrate) 5 Mg Tablet, (Reported) Entered as Reported by: PARESH KNOTT on 08/22/18 1024 Review of Systems Review of Systems Constitutional: No chills Eyes: Photophobia Ears, Nose, Mouth, Throat: no symptoms reported Respiratory: no symptoms reported Cardiovascular: no symptoms reported Gastrointestinal: nausea, vomiting Genitourinary: no symptoms reported Musculoskeletal: muscle pain Skin: No rash Psychiatric/Neurological: Headache Past Xoljwyv-Avdhlo-Nshfuw Hx Patient Social History Tobacco Use?: No Immunizations Up To Date First/Initial COVID19 Vaccinat: SEPTEMBER Second COVID19 Vaccination Francis: OCTOBER 2020 Seasonal Allergies Seasonal Allergies: No Past Medical History Surgery/Hospitalization HX: Chronic migraines and anxiety Surgeries: Yes 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 Respiratory: No Cardiac: No Neurological: Yes 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 oz. [id number]; 23.00 BMI Method:Stated General Appearance: WD/WN, no apparent distress HEENT: PERRL/EOMI, normal ENT inspection, pharynx normal Neck: full range of motion, supple, tender lateral (Left side) Cardiovascular: normal peripheral pulses, regular rate, rhythm Respiratory: chest non-tender, lungs clear, normal breath sounds, no re spiratory distress, no accessory muscle use Gastrointestinal: normal bowel sounds, non tender, soft, no pulsatile mass Extremities: normal range of motion, non-tender, normal capillary refill Psychiatric: alert, oriented x 3 Crainal Nerves: normal hearing, normal speech, PERRL Coordination/Gait: normal gait Skin: normal color, warm/dry Progress/Results/Core Measures Results/Orders My Orders Orders - SUSANA LOPEZ MD Ketorolac Injection (Toradol Injection) (06/22/21 03:36) Diphenhydramine Injection (Benadryl Inje (06/22/21 03:36) Promethazine Injection (Phenergan Injec (06/22/21 03:36) Vital Signs/I&O 06/22/21 03:38 Temp 36.9 Pulse 106 Resp 12 B/P (MAP) 131/95 (107) Pulse Ox 100 O2 Delivery Room Air Progress Progress Note : Progress Note Since patient reports this is the same sort of pain that she usually has with her migraines, will order the usual medicines for her headaches. Toradol 60 mg IM for pain, Phenergan 50 mg IM for nausea, Benadryl 50 mg IM for nausea and to help her rest Have her go home and rest in a cool dark room. Continue to follow-up with Neurology and PCP Departure Impression Primary Impression: Migraine Qualified Codes: G43.019 - Migraine without aura, intractable, without status migrainosus Disposition: 01 HOME, SELF-CARE Condition: Stable Departure-Patient Inst. Decision time for Depature: 03:50 Referrals: SABINA VELOZ MD (PCP/Family) Primary Care Physician Patient Instructions: Home Headache Remedies, Migraines in Adults Add. Discharge Instructions: Continue to work with Dr. Veloz and your Neurologist for controlling your Migraine headaches All discharge instructions reviewed with patient and/or family. Voiced understanding. SUSANA LOPEZ MD Jun 22, 2021 03:50
== END 2021-06-22 04:02 | disposition home or self-care (01) ==
LOC: EDUNIT# 03:31 → ER FS 03:35
DX: G43.019 Migraine without aura, intractable, without status migrainosus (principal); F41.9 Anxiety disorder, unspecified; F32.9 Major depressive disorder, single episode, unspecified; Z88.8 Allergy status to other drugs, medicaments and biological substances; Z79.899 Other long term (current) drug therapy
CPT/HCPCS: 99281

== ENCOUNTER 2021-07-03 16:02 | Emergency (ER) | payer MEDICARE ==
[2021-07-03] MEDS ORDERED: KETOROLAC 60 MG/2 ML VIAL IM ONE (16:45)
[2021-07-03] MEDS ORDERED: PROMETHAZINE INJ 25 MG/ML (PHENERGAN) AMP IM ONE (16:45)
[2021-07-03] MEDS ORDERED: diphenhydrAMINE 50 MG/ML INJ (BENADRYL) IM ONE (16:45)
--- NOTE | 2021-07-03 16:49 | ED Headache ---
General Chief Complaint: Head/Cervical Problems Stated Complaint: HEADACHE Nursing Triage Note: Patient presents to the ED with c/o migraine. She states her pain began 3 days ago improving yesterday and then became more severe today. She also reports that she received her COVID booster yesterday. She states that she has taken flexeril today. Source: patient Exam Limitations: no limitations History of Present Illness Date Seen by Provider: Jul 03, 2021 Time Seen by Provider: 16:15 Initial Comments Patient is a 40-year-old female with history of chronic migraines who is well- known to this emergency department. Patient reports intermittent daily migraine headaches for the past 2 days. Yesterday she received her Covid booster and reports waking this morning with severe migraine. Migraine is posterior throbbing moderate to severe and associated with light sensitivity and nausea. Patient took her usual home regimen of antiemetics and muscle relaxants without pain relief. No vomiting. No neck stiffness, fever, extremity weakness or loss of sensation. No other acute symptoms or complaints. Timing/Duration: waxing and waning Severity/Quality: moderate Location: occipital Prior Headaches/Recent Trauma: other Associated Symptoms: other Allergies and Home Medications Allergies Coded Allergies: Sulfa (Sulfonamide Antibiotics) (Verified Allergy, Mild, Itching, 03/14/19) cefuroxime (Verified Allergy, Unknown, 08/21/18) haloperidol (Verified Allergy, Unknown, 10/31/18) magnesium (Verified Allergy, Unknown, 08/21/18) prochlorperazine (Verified Allergy, Unknown, rash, 08/21/18) topiramate (Verified Allergy, Unknown, 08/21/18) tramadol (Verified Allergy, Unknown, 10/31/18) Uncoded Allergies: DHE (Allergy, Unknown, 10/31/18) Patient Home Medication List Home Medication List Reviewed: Yes Bupropion HCl (Bupropion HCl Sr) 150 Mg Tablet.er, (Reported) Entered as Reported by: PARESH KNOTT on 08/22/18 1024 Butalbital/Aspirin/Caffeine (Fiorinal 50-325-40 mg Capsule) 1 Each Capsule, 1 EACH PO TID PRN for Headache Prescribed by: MELANIE CLAYTON on 09/02/19 032 Butorphanol Tartrate (Butorphanol Tartrate) 25 Mg [place], (Reported) Entered as Reported by: PARESH KNOTT on 08/22/18 1024 Clindamycin HCl (Clindamycin HCl) 300 Mg Capsule, (Reported) Entered as Reported by: TRACEY RAZO on 10/31/18 1716 Cyclobenzaprine HCl (Cyclobenzaprine HCl) 10 Mg Tablet, 10 MG PO Q8H PRN for SPASMS Prescribed by: JAXSON ANDERSON on 10/31/18 1810 Ibuprofen (Ibuprofen) 800 Mg Tablet, 800 MG PO Q8H PRN for PAIN Prescribed by: HERON PERLA on 01/06/21 1643 Levothyroxine Sodium (Synthroid) 50 Mcg Tablet, (Reported) Entered as Reported by: PARESH KNOTT on 08/22/18 1024 Levothyroxine Sodium (Synthroid) 200 Mcg Tablet, (Reported) Entered as Reported by: PARESH KNOTT on 08/22/18 1024 Lorazepam (Lorazepam) 1 Mg Tablet, (Reported) Entered as Reported by: PARESH KNOTT on 08/22/18 1024 Promethazine HCl (Promethazine HCl) 50 Mg Supp.rect, 50 MG RC Q8H Prescribed by: TRISTEN LANDRY on 11/29/19 1555 Propranolol HCl (Propranolol HCl) 20 Mg Tablet, (Reported) Entered as Reported by: PARESH KNOTT on 08/22/18 1024 Venlafaxine HCl (Venlafaxine HCl ER) 150 Mg Cap.er.24h, (Reported) Entered as Reported by: PARESH KNOTT on 08/22/18 1024 Zolpidem Tartrate (Zolpidem Tartrate) 5 Mg Tablet, (Reported) Entered as Reported by: PARESH KNOTT on 08/22/18 1024 Review of Systems Review of Systems Constitutional: see HPI Eyes: See HPI Ears, Nose, Mouth, Throat: see HPI Respiratory: see HPI Cardiovascular: see HPI Gastrointestinal: see HPI Genitourinary: see HPI Musculoskeletal: see HPI Skin: see HPI Psychiatric/Neurological: See HPI All Other Systems Reviewed Negative Unless Noted: Yes Past Yeyaexs-Gfsuen-Dsnlvc Hx Patient Social History Tobacco Use?: Yes Use of E-Cig and/or Vaping dev: No Substance use?: No Alcohol Use?: No Pt feels they are or have been: No Immunizations Up To Date First/Initial COVID19 Vaccinat: JORGE Second COVID19 Vaccination Francis: OCTOBER 2020 Seasonal Allergies Seasonal Allergies: No Past Medical History Surgery/Hospitalization HX: Chronic migraines and anxiety Surgeries: Yes 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 Respiratory: No Cardiac: No Neurological: Yes 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 oz. [id number]; 23.00 BMI Method:Stated General Appearance: mild distress (Light and sound sensitivity) HEENT: PERRL/EOMI, normal ENT inspection Neck: full range of motion, supple Cardiovascular: normal peripheral pulses, regular rate, rhythm Respiratory: lungs clear Gastrointestinal: non tender, soft Psychiatric: alert, oriented x 3 Crainal Nerves: normal hearing, normal speech Motor/Sensory: no motor deficit, no sensory deficit Skin: normal color, warm/dry Progress/Results/Core Measures Results/Orders My Orders Orders - TRISTEN LANDRY DO Promethazine Injection (Phenergan Injec (07/03/21 16:45) Diphenhydramine Injection (Benadryl Inje (07/03/21 16:45) Ketorolac Injection (Toradol Injection) (07/03/21 16:45) Dexamethasone Oral Soln (Ed) (Decadron I (07/03/21 16:43) Vital Signs/I&O 07/03/21 16:09 Temp 36.8 Pulse 97 Resp 14 B/P (MAP) 132/72 (92) Pulse Ox 100 O2 Delivery Room Air Blood Pressure Mean: 92 Departure Communication (Admissions) Patient is well-known chronic migraine sufferer. Typical migraine symptoms. Usual migraine cocktail given. Recommendations are for home rest with continued supportive therapeutic care with PCP/neurology follow-up. Impression Primary Impression: Migraine Disposition: 01 HOME, SELF-CARE Condition: Stable Departure-Patient Inst. Decision time for Depature: 16:48 Referrals: SABINA VELOZ MD (PCP/Family) Primary Care Physician Patient Instructions: Migraines (DC) Add. Discharge Instructions: You were treated in the emergency department for migraine headache. Please go home and rest, increase fluids and continue home medication regimen. Follow-up with your PCP and/or neurologist. Return to the ED if new or worsening symptoms. All discharge instructions reviewed with patient and/or family. Voiced understanding. TRISTEN LANDRY DO Jul 03, 2021 16:49
[2021-07-03 17:13] VITALS: BP 132/72
== END 2021-07-03 17:11 | disposition home or self-care (01) ==
LOC: EDUNIT# 16:02 → ER FS 16:03
DX: G43.909 Migraine, unspecified, not intractable, without status migrainosus (principal); F41.9 Anxiety disorder, unspecified; F32.9 Major depressive disorder, single episode, unspecified; Z72.0 Tobacco use; Z79.899 Other long term (current) drug therapy; Z79.82 Long term (current) use of aspirin
CPT/HCPCS: 99284

== ENCOUNTER 2021-07-27 05:41 | Emergency (ER) | payer MEDICARE ==
[2021-07-27] MEDS ORDERED: PROMETHAZINE INJ 25 MG/ML (PHENERGAN) AMP IM ONE (06:00)
[2021-07-27] MEDS ORDERED: diphenhydrAMINE 50 MG/ML INJ (BENADRYL) IM ONE (06:00)
[2021-07-27] MEDS ORDERED: KETOROLAC 60 MG/2 ML VIAL IM ONE (06:00)
--- NOTE | 2021-07-27 06:03 | ED Headache ---
General Chief Complaint: Head/Cervical Problems Stated Complaint: MIGRAINE Nursing Triage Note: Pt complaining of a migraine that started Sunday Source: patient Exam Limitations: no limitations History of Present Illness Date Seen by Provider: Jul 27, 2021 Time Seen by Provider: 05:45 Initial Comments Patient is a 40-year-old female with history of chronic migraines who presents with typical chronic migraine starting several hours prior to arrival. Pain is retro-orbital throbbing and associated with light sensitivity and nausea. Patient took her usual home regimen without relief of symptoms. This is not the worst headache of the patient's life. No neck stiffness rash fever, extremity w eakness or loss of sensation. No other acute symptoms or complaints. Timing/Duration: 4-6 hours Severity/Quality: moderate Location: frontal Prior Headaches/Recent Trauma: other Modifying Factors: improves with other Associated Symptoms: other Allergies and Home Medications Allergies Coded Allergies: Sulfa (Sulfonamide Antibiotics) (Verified Allergy, Mild, Itching, 03/14/19) cefuroxime (Verified Allergy, Unknown, 08/21/18) haloperidol (Verified Allergy, Unknown, 10/31/18) magnesium (Verified Allergy, Unknown, 08/21/18) prochlorperazine (Verified Allergy, Unknown, rash, 08/21/18) topiramate (Verified Allergy, Unknown, 08/21/18) tramadol (Verified Allergy, Unknown, 10/31/18) Uncoded Allergies: DHE (Allergy, Unknown, 10/31/18) Patient Home Medication List Home Medication List Reviewed: Yes Bupropion HCl (Bupropion HCl Sr) 150 Mg Tablet.er, (Reported) Entered as Reported by: PARESH KNOTT on 08/22/18 1024 Butalbital/Aspirin/Caffeine (Fiorinal 50-325-40 mg Capsule) 1 Each Capsule, 1 EACH PO TID PRN for Headache Prescribed by: MELANIE CLAYTON on 09/02/19 1856 Butorphanol Tartrate (Butorphanol Tartrate) 25 Mg [place], (Reported) Entered as Reported by: PARESH KNOTT on 08/22/18 1024 Clindamycin HCl (Clindamycin HCl) 300 Mg Capsule, (Reported) Entered as Reported by: TRACEY RAZO on 10/31/18 1716 Cyclobenzaprine HCl (Cyclobenzaprine HCl) 10 Mg Tablet, 10 MG PO Q8H PRN for SPASMS Prescribed by: JAXSON ANDERSON on 10/31/18 1810 Ibuprofen (Ibuprofen) 800 Mg Tablet, 800 MG PO Q8H PRN for PAIN Prescribed by: HERON PERLA on 01/06/21 1643 Levothyroxine Sodium (Synthroid) 50 Mcg Tablet, (Reported) Entered as Reported by: PARESH KNOTT on 08/22/18 1024 Levothyroxine Sodium (Synthroid) 200 Mcg Tablet, (Reported) Entered as Reported by: PARESH KNOTT on 08/22/18 1024 Lorazepam (Lorazepam) 1 Mg Tablet, (Reported) Entered as Reported by: PARESH KNOTT on 08/22/18 1024 Promethazine HCl (Promethazine HCl) 50 Mg Supp.rect, 50 MG RC Q8H Prescribed by: TRISTEN LANDRY on 11/29/19 1555 Propranolol HCl (Propranolol HCl) 20 Mg Tablet, (Reported) Entered as Reported by: PARESH KNOTT on 08/22/18 1024 Venlafaxine HCl (Venlafaxine HCl ER) 150 Mg Cap.er.24h, (Reported) Entered as Reported by: PARESH KNOTT on 08/22/18 1024 Zolpidem Tartrate (Zolpidem Tartrate) 5 Mg Tablet, (Reported) Entered as Reported by: PARESH KNOTT on 08/22/18 1024 Review of Systems Review of Systems Constitutional: see HPI Eyes: See HPI Ears, Nose, Mouth, Throat: see HPI Respiratory: see HPI Cardiovascular: see HPI Gastrointestinal: see HPI Genitourinary: see HPI Musculoskeletal: see HPI Skin: see HPI Psychiatric/Neurological: See HPI Past Yqlbgir-Ysaatc-Ubuoxg Hx Patient Social History Tobacco Use?: Yes Use of E-Cig and/or Vaping dev: No Substance use?: No Alcohol Use?: No Pt feels they are or have been: No Immunizations Up To Date First/Initial COVID19 Vaccinat: September COVID19 Vaccination Francis: OCTOBER 2020 Seasonal Allergies Seasonal Allergies: No Past Medical History Surgery/Hospitalization HX: Chronic migraines and anxiety Surgeries: Yes 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 Respiratory: No Cardiac: No 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 oz. 70.083743uj; 23.00 BMI Method:Stated General Appearance: WD/WN, no apparent distress HEENT: PERRL/EOMI, normal ENT inspection Neck: full range of motion, supple Cardiovascular: regular rate, rhythm Respiratory: lungs clear, normal breath sounds Extremities: normal inspection Psychiatric: alert, oriented x 3 Crainal Nerves: normal hearing, normal speech Motor/Sensory: no sensory deficit, no pronator drift Skin: No rash Progress/Results/Core Measures Results/Orders My Orders Orders - TRISTEN LANDRY DO Promethazine Injection (Phenergan Injec (07/27/21 06:00) Diphenhydramine Injection (Benadryl Inje (07/27/21 06:00) Ketorolac Injection (Toradol Injection) (07/27/21 06:00) Vital Signs/I&O 07/27/21 05:46 Pulse 78 Resp 18 B/P (MAP) 138/73 (94) Pulse Ox 99 O2 Delivery Room Air Blood Pressure Mean: 94 Departure Communication (Admissions) Chronic recurrent migraine headache. Typical migraine cocktail provided. Recommendations are as home rest and PCP/neurology follow-up for further management. Impression Primary Impression: Migraine headache without aura Disposition: 01 HOME, SELF-CARE Condition: Stable Departure-Patient Inst. Decision time for Depature: 06:02 Referrals: SABINA VELOZ MD (PCP/Family) Primary Care Physician Patient Instructions: Migraines in Adults Add. Discharge Instructions: Please go home and follow-up with your PCP and/or neurologist as needed. All discharge instructions reviewed with patient and/or family. Voiced understanding. TRISTEN LANDRY DO Jul 27, 2021 06:03
[2021-07-27 06:04] VITALS: BP 138/73
== END 2021-07-27 06:05 | disposition home or self-care (01) ==
LOC: EDUNIT# 05:41 → ER FS 05:43
DX: G43.009 Migraine without aura, not intractable, without status migrainosus (principal); F41.9 Anxiety disorder, unspecified; F32.9 Major depressive disorder, single episode, unspecified; Z72.0 Tobacco use; Z79.899 Other long term (current) drug therapy
CPT/HCPCS: 99284

== ENCOUNTER 2021-08-09 02:52 | Emergency (ER) | payer MEDICARE ==
[~2021-08-09] VITALS: Ht 167 cm; Wt 68.0 kg
[2021-08-09 02:57] VITALS: BP 130/75
--- NOTE | 2021-08-09 03:04 | ED Headache ---
General Stated Complaint: MIGRAINE History of Present Illness Date Seen by Provider: Aug 09, 2021 Time Seen by Provider: 02:58 Initial Comments 40 yr F with PMH of Migraine is here with left sided migraine that began last night. It is associated with nausea and vomiting, photophobia. Denies LOC, blurry vision, dizziness. Pt has not been drinking much water the last couple of weeks, and may be the trigger for the migraine. Allergies and Home Medications Allergies Coded Allergies: Sulfa (Sulfonamide Antibiotics) (Verified Allergy, Mild, Itching, 03/14/19) cefuroxime (Verified Allergy, Unknown, 08/21/18) haloperidol (Verified Allergy, Unknown, 10/31/18) magnesium (Verified Allergy, Unknown, 08/21/18) prochlorperazine (Verified Allergy, Unknown, rash, 08/21/18) topiramate (Verified Allergy, Unknown, 08/21/18) tramadol (Verified Allergy, Unknown, 10/31/18) Uncoded Allergies: DHE (Allergy, Unknown, 10/31/18) Patient Home Medication List Home Medication List Reviewed: Yes Bupropion HCl (Bupropion HCl Sr) 150 Mg Tablet.er, (Reported) Entered as Reported by: PARESH KNOTT on 08/22/18 1024 Butalbital/Aspirin/Caffeine (Fiorinal 50-325-40 mg Capsule) 1 Each Capsule, 1 EACH PO TID PRN for Headache Prescribed by: MELANIE CLAYTON on 09/02/19 1856 Butorphanol Tartrate (Butorphanol Tartrate) 25 Mg [place], (Reported) Entered as Reported by: PARESH KNOTT on 08/22/18 1024 Clindamycin HCl (Clindamycin HCl) 300 Mg Capsule, (Reported) Entered as Reported by: TRACEY RAZO on 10/31/18 1716 Cyclobenzaprine HCl (Cyclobenzaprine HCl) 10 Mg Tablet, 10 MG PO Q8H PRN for SPASMS Prescribed by: JAXSON ANDERSON on 10/31/18 1810 Ibuprofen (Ibuprofen) 800 Mg Tablet, 800 MG PO Q8H PRN for PAIN Prescribed by: HERON PERLA on 01/06/21 1643 Levothyroxine Sodium (Synthroid) 50 Mcg Tablet, (Reported) Entered as Reported by: PARESH KNOTT on 08/22/18 1024 Levothyroxine Sodium (Synthroid) 200 Mcg Tablet, (Reported) Entered as Reported by: PARESH KNOTT on 08/22/18 1024 Lorazepam (Lorazepam) 1 Mg Tablet, (Reported) Entered as Reported by: PARESH KNOTT on 08/22/18 1024 Promethazine HCl (Promethazine HCl) 50 Mg Supp.rect, 50 MG RC Q8H Prescribed by: TRISTEN LANDRY on 11/29/19 1555 Propranolol HCl (Propranolol HCl) 20 Mg Tablet, (Reported) Entered as Reported by: PARESH KNOTT on 08/22/18 1024 Venlafaxine HCl (Venlafaxine HCl ER) 150 Mg Cap.er.24h, (Reported) Entered as Reported by: PARESH KNOTT on 08/22/18 1024 Zolpidem Tartrate (Zolpidem Tartrate) 5 Mg Tablet, (Reported) Entered as Reported by: PARESH KNOTT on 08/22/18 1024 Review of Systems Review of Systems Constitutional: no symptoms reported Eyes: Photophobia Ears, Nose, Mouth, Throat: no symptoms reported Respiratory: no symptoms reported Cardiovascular: no symptoms reported Gastrointestinal: no symptoms reported Musculoskeletal: no symptoms reported Psychiatric/Neurological: Headache Past Tdhvvln-Sllhzu-Dzoiuv Hx Immunizations Up To Date First/Initial COVID19 Vaccinat: September COVID19 Vaccination Francis: OCTOBER 2020 Seasonal Allergies Seasonal Allergies: No Past Medical History Surgery/Hospitalization HX: Chronic migraines and anxiety Surgeries: Yes 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 Respiratory: No Cardiac: No 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 oz. 70.862997te; 23.00 BMI Method:Stated General Appearance: WD/WN, mild distress HEENT: PERRL/EOMI Neck: non-tender, full range of motion, supple, normal inspection Cardiovascular: regular rate, rhythm Respiratory: lungs clear Back: no vertebral tenderness Extremities: normal range of motion Psychiatric: alert, oriented x 3 Crainal Nerves: normal hearing, normal speech, PERRL Motor/Sensory: no motor deficit, no sensory deficit Skin: normal color Progress/Results/Core Measures Results/Orders My Orders Orders - ESTEFANY HOROWITZ MD Diphenhydramine Injection (Benadryl Inje (08/09/21 03:15) Ketorolac Injection (Toradol Injection) (08/09/21 03:15) Promethazine Injection (Phenergan Injec (08/09/21 03:15) Progress Progress Note : Progress Note 1. MIGRAINE: -Migraine cocktail of Benadryl, Phenergan, Toradol IM - F/u with PCP as needed - Advised adequate hydration -The patient was seen in the ED, and treated appropriately to presentation at a specific point in time. Patient is informed that there is a possibility that disease and illness can evolve and change in acuity rapidly or slowly after patient is discharged from the ER. Precautionary advice given to the patient for immediate return to ER if symptoms worsen or do not resolve, and to seek emergency care sooner rather than later. Pt also advised on the importance of PCP follow up and compliance with management and follow up plan. Pt verbally expressed understanding. Departure Impression Primary Impression: Migraine Qualified Codes: G43.019 - Migraine without aura, intractable, without status migrainosus Disposition: 01 HOME, SELF-CARE Condition: Improved Departure-Patient Inst. Referrals: SABINA VELOZ MD (PCP/Family) Primary Care Physician Patient Instructions: Migraines (DC) Add. Discharge Instructions: adequate hydration advised ESTEFANY HOROWITZ MD Aug 09, 2021 03:04
[2021-08-09] MEDS ORDERED: KETOROLAC 30 MG/ML VIAL IM ONE (03:15)
[2021-08-09] MEDS ORDERED: diphenhydrAMINE 50 MG/ML INJ (BENADRYL) IM ONE (03:15)
[2021-08-09] MEDS ORDERED: PROMETHAZINE INJ 25 MG/ML (PHENERGAN) AMP IM ONE (03:15)
== END 2021-08-09 03:27 | disposition home or self-care (01) ==
LOC: EDUNIT# 02:52 → ER FS 02:53
DX: G43.709 Chronic migraine without aura, not intractable, without status migrainosus (principal); F41.9 Anxiety disorder, unspecified; F32.A Depression, unspecified; Z79.899 Other long term (current) drug therapy
CPT/HCPCS: 99284

== ENCOUNTER 2021-08-18 05:23 | Emergency (ER) | payer MEDICARE ==
[~2021-08-18] VITALS: Ht 170 cm; Wt 68.0 kg
[2021-08-18 05:38] VITALS: BP 125/90
[2021-08-18] MEDS ORDERED: KETOROLAC 60 MG/2 ML VIAL IM ONE (06:00)
[2021-08-18] MEDS ORDERED: METOCLOPRAMIDE INJ 10 MG/2 ML (REGLAN) IM ONE (06:00)
[2021-08-18] MEDS ORDERED: PROMETHAZINE INJ 25 MG/ML (PHENERGAN) AMP IM ONE (06:00)
--- NOTE | 2021-08-18 06:05 | ED Headache ---
General Chief Complaint: Head/Cervical Problems Stated Complaint: HEADACHE Source: patient Exam Limitations: no limitations History of Present Illness Date Seen by Provider: Aug 18, 2021 Time Seen by Provider: 05:45 Initial Comments Patient is a 40-year-old female with chronic recurrent migraines who presents with typical migraine headache starting several hours prior to ED arrival. Headache is dull throbbing and associated with light sensitivity and nausea. No vomiting at home. Patient is well-known to this emergency departments been seen multiple times the past several months including 2 weeks ago by this provider. She sees neurologist and has had Botox in the past 30 days. She reports that her current migraine is stress-induced. No other acute symptoms or complaint Timing/Duration: 4-6 hours Location: occipital Prior Headaches/Recent Trauma: no recent headache/trauma Modifying Factors: improves with other Associated Symptoms: other Allergies and Home Medications Allergies Coded Allergies: Sulfa (Sulfonamide Antibiotics) (Verified Allergy, Mild, Itching, 03/14/19) cefuroxime (Verified Allergy, Unknown, 08/21/18) haloperidol (Verified Allergy, Unknown, 10/31/18) magnesium (Verified Allergy, Unknown, 08/21/18) prochlorperazine (Verified Allergy, Unknown, rash, 08/21/18) topiramate (Verified Allergy, Unknown, 08/21/18) tramadol (Verified Allergy, Unknown, 10/31/18) Uncoded Allergies: DHE (Allergy, Unknown, 10/31/18) Patient Home Medication List Home Medication List Reviewed: Yes Bupropion HCl (Bupropion HCl Sr) 150 Mg Tablet.er, (Reported) Entered as Reported by: PARESH KNOTT on 08/22/18 1024 Butalbital/Aspirin/Caffeine (Fiorinal 50-325-40 mg Capsule) 1 Each Capsule, 1 EACH PO TID PRN for Headache Prescribed by: MELANIE CLAYTON on 09/02/19 1856 Butorphanol Tartrate (Butorphanol Tartrate) 25 Mg [place], (Reported) Entered as Reported by: PARESH KNOTT on 08/22/18 1024 Clindamycin HCl (Clindamycin HCl) 300 Mg Capsule, (Reported) Entered as Reported by: TRACEY RAZO on 10/31/18 1716 Cyclobenzaprine HCl (Cyclobenzaprine HCl) 10 Mg Tablet, 10 MG PO Q8H PRN for S PASMS Prescribed by: JAXSON ANDERSON on 10/31/18 1810 Ibuprofen (Ibuprofen) 800 Mg Tablet, 800 MG PO Q8H PRN for PAIN Prescribed by: HERON PERLA on 01/06/21 1643 Levothyroxine Sodium (Synthroid) 50 Mcg Tablet, (Reported) Entered as Reported by: PARESH KNOTT on 08/22/18 1024 Levothyroxine Sodium (Synthroid) 200 Mcg Tablet, (Reported) Entered as Reported by: PARESH KNOTT on 08/22/18 1024 Lorazepam (Lorazepam) 1 Mg Tablet, (Reported) Entered as Reported by: PARESH KNOTT on 08/22/18 1024 Promethazine HCl (Promethazine HCl) 50 Mg Supp.rect, 50 MG RC Q8H Prescribed by: TRISTEN LANDRY on 11/29/19 1555 Propranolol HCl (Propranolol HCl) 20 Mg Tablet, (Reported) Entered as Reported by: PARESH KNOTT on 08/22/18 1024 Venlafaxine HCl (Venlafaxine HCl ER) 150 Mg Cap.er.24h, (Reported) Entered as Reported by: PARESH KNOTT on 08/22/18 1024 Zolpidem Tartrate (Zolpidem Tartrate) 5 Mg Tablet, (Reported) Entered as Reported by: PARESH KNOTT on 08/22/18 1024 Review of Systems Review of Systems Constitutional: see HPI Eyes: See HPI Ears, Nose, Mouth, Throat: see HPI Respiratory: see HPI Cardiovascular: see HPI Gastrointestinal: see HPI Genitourinary: see HPI Musculoskeletal: see HPI Skin: see HPI Psychiatric/Neurological: See HPI All Other Systems Reviewed Negative Unless Noted: Yes Past Nlqunhp-Xwwrwh-Qexotq Hx Patient Social History Tobacco Use?: Yes Use of E-Cig and/or Vaping dev: No Substance use?: No Alcohol Use?: No Pt feels they are or have been: No Immunizations Up To Date First/Initial COVID19 Vaccinat: SEPTEMBER Second COVID19 Vaccination Francis: OCTOBER 2020 Seasonal Allergies Seasonal Allergies: No Past Medical History Surgery/Hospitalization HX: Migraines Surgeries: Yes 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 Respiratory: No Cardiac: No 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 oz. 70.739839rg; 23.00 BMI Method:Stated General Appearance: no apparent distress Neck: full range of motion Cardiovascular: regular rate, rhythm Respiratory: lungs clear, normal breath sounds Motor/Sensory: no motor deficit, no sensory deficit Progress/Results/Core Measures Results/Orders My Orders Orders - TRISTEN LANDRY DO Ketorolac Injection (Toradol Injection) (08/18/21 06:00) Metoclopramide Injection (Reglan Injecti (08/18/21 06:00) Promethazine Injection (Phenergan Injec (08/18/21 06:00) Vital Signs/I&O 08/18/21 05:38 Temp 36.4 Pulse 99 Resp 12 B/P (MAP) 125/90 (102) Pulse Ox 100 O2 Delivery Room Air Blood Pressure Mean: 102 Departure Communication (Admissions) Typical migraine headache with anxiety component. Usual medications given. Patient instructed to follow-up with PCP and neurologist. Impression Primary Impression: Migraine headache without aura Additional Impression: Chronic headaches Disposition: 01 HOME, SELF-CARE Condition: Stable Departure-Patient Inst. Decision time for Depature: 06:05 Referrals: SABINA VELOZ MD (PCP/Family) Primary Care Physician Patient Instructions: Migraines (DC) Add. Discharge Instructions: Follow-up with your PCP and/or neurologist for further management All discharge instructions reviewed with patient and/or family. Voiced understanding. TRISTEN LANDRY DO Aug 18, 2021 06:05
== END 2021-08-18 06:24 | disposition home or self-care (01) ==
LOC: EDUNIT# 05:23 → ER FS 05:25
DX: G43.009 Migraine without aura, not intractable, without status migrainosus (principal); Z72.0 Tobacco use
CPT/HCPCS: 99284

== ENCOUNTER 2021-08-26 04:54 | Emergency (ER) | payer MEDICARE ==
[~2021-08-26] VITALS: Ht 170 cm; Wt 68.0 kg
--- NOTE | 2021-08-26 05:13 | ED Headache ---
General Chief Complaint: Head/Cervical Problems Stated Complaint: MIGRAINE Source: patient Exam Limitations: no limitations History of Present Illness Date Seen by Provider: Aug 26, 2021 Time Seen by Provider: 05:10 Initial Comments Patient is 39-year-old female well-known to this emergency department with recurrent migraine headaches who presents with typical migraine headache reports nausea, no vomiting. No neck pain stiffness. No fever or rash. No other acute symptoms or complaints. Patient receives Botox for migraine prevention Timing/Duration: 4-6 hours Severity/Quality: moderate Location: global Prior Headaches/Recent Trauma: other Modifying Factors: improves with other Associated Symptoms: other Allergies and Home Medications Allergies Coded Allergies: Sulfa (Sulfonamide Antibiotics) (Verified Allergy, Mild, Itching, 03/14/19) cefuroxime (Verified Allergy, Unknown, 08/21/18) haloperidol (Verified Allergy, Unknown, 10/31/18) magnesium (Verified Allergy, Unknown, 08/21/18) prochlorperazine (Verified Allergy, Unknown, rash, 08/21/18) topiramate (Verified Allergy, Unknown, 08/21/18) tramadol (Verified Allergy, Unknown, 10/31/18) Uncoded Allergies: DHE (Allergy, Unknown, 10/31/18) Patient Home Medication List Home Medication List Reviewed: Yes Bupropion HCl (Bupropion HCl Sr) 150 Mg Tablet.er, (Reported) Entered as Reported by: PARESH KNOTT on 08/22/18 1024 Butalbital/Aspirin/Caffeine (Fiorinal 50-325-40 mg Capsule) 1 Each Capsule, 1 EACH PO TID PRN for Headache Prescribed by: MELANIE CLAYTON on 09/02/19 1856 Butorphanol Tartrate (Butorphanol Tartrate) 25 Mg [place], (Reported) Entered as Reported by: PARESH KNOTT on 08/22/18 1024 Clindamycin HCl (Clindamycin HCl) 300 Mg Capsule, (Reported) Entered as Reported by: TRACEY RAZO on 10/31/18 1716 Cyclobenzaprine HCl (Cyclobenzaprine HCl) 10 Mg Tablet, 10 MG PO Q8H PRN for SPASMS Prescribed by: JAXSON ANDERSON on 10/31/18 181 Ibuprofen (Ibuprofen) 800 Mg Tablet, 800 MG PO Q8H PRN for PAIN Prescribed by: HERON PERLA on 01/06/21 1643 Levothyroxine Sodium (Synthroid) 50 Mcg Tablet, (Reported) Entered as Reported by: PARESH KNOTT on 08/22/18 1024 Levothyroxine Sodium (Synthroid) 200 Mcg Tablet, (Reported) Entered as Reported by: PARESH KNOTT on 08/22/18 1024 Lorazepam (Lorazepam) 1 Mg Tablet, (Reported) Entered as Reported by: PARESH KNOTT on 08/22/18 1024 Promethazine HCl (Promethazine HCl) 50 Mg Supp.rect, 50 MG RC Q8H Prescribed by: TRISTEN LANDRY on 11/29/19 1555 Propranolol HCl (Propranolol HCl) 20 Mg Tablet, (Reported) Entered as Reported by: PARESH KNOTT on 08/22/18 1024 Venlafaxine HCl (Venlafaxine HCl ER) 150 Mg Cap.er.24h, (Reported) Entered as Reported by: PARESH KNOTT on 08/22/18 1024 Zolpidem Tartrate (Zolpidem Tartrate) 5 Mg Tablet, (Reported) Entered as Reported by: PARESH KNOTT on 08/22/18 1024 Review of Systems Review of Systems Constitutional: see HPI Eyes: See HPI Ears, Nose, Mouth, Throat: see HPI Respiratory: see HPI Cardiovascular: see HPI Gastrointestinal: see HPI Genitourinary: see HPI Musculoskeletal: see HPI Skin: see HPI Psychiatric/Neurological: See HPI Past Anocoqv-Qvvtge-Zuxvjw Hx Patient Social History Tobacco Use?: Yes Immunizations Up To Date First/Initial COVID19 Vaccinat: September COVID19 Vaccination Francis: OCTOBER 2020 Seasonal Allergies Seasonal Allergies: No Past Medical History Surgery/Hospitalization HX: Migraines Surgeries: Yes 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 Respiratory: No Cardiac: No Neurological: Yes 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 oz. 70.223825vq; 23.00 BMI Method:Stated General Appearance: WD/WN, no apparent distress HEENT: PERRL/EOMI, normal ENT inspection Respiratory: lungs clear Progress/Results/Core Measures Results/Orders My Orders Orders - TRISTEN LANDRY DO Diphenhydramine Injection (Benadryl Inje (08/26/21 05:15) Ketorolac Injection (Toradol Injection) (08/26/21 05:15) Promethazine Injection (Phenergan Injec (08/26/21 05:15) Departure Communication (Admissions) Chronic recurrent migraines. Typical migraine medications given. Impression Primary Impression: Chronic recurrent bronchiolitis Disposition: HOME, SELF-CARE Condition: Stable Departure-Patient Inst. Decision time for Depature: 05:12 Referrals: SABINA VELOZ MD (PCP/Family) Primary Care Physician Patient Instructions: Migraines (DC) Add. Discharge Instructions: All discharge instructions reviewed with patient and/or family. Voiced understanding. TRISTEN LANDRY DO Aug 26, 2021 05:13
[2021-08-26] MEDS ORDERED: PROMETHAZINE INJ 25 MG/ML (PHENERGAN) AMP IVP ONE (05:15)
[2021-08-26] MEDS ORDERED: KETOROLAC 60 MG/2 ML VIAL IM ONE (05:15)
[2021-08-26] MEDS ORDERED: diphenhydrAMINE 50 MG/ML INJ (BENADRYL) IM ONE (05:15)
[2021-08-26 05:23] VITALS: BP 124/80
== END 2021-08-26 05:23 | disposition home or self-care (01) ==
LOC: EDUNIT# 04:54 → ER FS 04:56
DX: J44.9 Chronic obstructive pulmonary disease, unspecified (principal); Z72.0 Tobacco use
CPT/HCPCS: 99284

== ENCOUNTER 2021-08-31 21:30 | Emergency (ER) | payer MEDICARE ==
[~2021-08-31] VITALS: Ht 170 cm; Wt 65.7 kg
--- NOTE | 2021-08-31 22:13 | ED Headache ---
General Chief Complaint: Head/Cervical Problems Stated Complaint: MIGRIANE Nursing Triage Note: Pt c/o left side headache since yesterday. Hx of migranes. Denies any new symptoms. Source: patient Exam Limitations: no limitations History of Present Illness Date Seen by Provider: Aug 31, 2021 Time Seen by Provider: 21:40 Initial Comments This 40-year-old young lady presents to the emergency room with complaints of severe migraine since yesterday. Started on the right side and has now moved to the left. She reports weather and social stressors have contributed to this headache. She has had increased headaches and intensity recently. She also has hypothyroidism and states it has been about 6 months since she has had her thyroid checked. She has associated nausea, vomiting, and aura. She tried taking Excedrin Migraine and cyclobenzaprine today without resolution. She normally gets Phenergan, Toradol, and Benadryl in the ER to abort her headaches. Allergies and Home Medications Allergies Coded Allergies: Sulfa (Sulfonamide Antibiotics) (Verified Allergy, Mild, Itching, 03/14/19) cefuroxime (Verified Allergy, Unknown, 08/21/18) haloperidol (Verified Allergy, Unknown, 10/31/18) magnesium (Verified Allergy, Unknown, 08/21/18) prochlorperazine (Verified Allergy, Unknown, rash, 08/21/18) topiramate (Verified Allergy, Unknown, 08/21/18) tramadol (Verified Allergy, Unknown, 10/31/18) Uncoded Allergies: DHE (Allergy, Unknown, 10/31/18) Patient Home Medication List Home Medication List Reviewed: Yes Bupropion HCl (Bupropion HCl Sr) 150 Mg Tablet.er, (Reported) Entered as Reported by: PARESH KNOTT on 08/22/18 1024 Butalbital/Aspirin/Caffeine (Fiorinal 50-325-40 mg Capsule) 1 Each Capsule, 1 EACH PO TID PRN for Headache Prescribed by: MELANIE CLAYTON on 09/02/19 1856 Butorphanol Tartrate (Butorphanol Tartrate) 25 Mg [place], (Reported) Entered as Reported by: PARESH KNOTT on 08/22/18 1024 Clindamycin HCl (Clindamycin HCl) 300 Mg Capsule, (Reported) Entered as Reported by: TRACEY RAZO on 10/31/18 1716 Cyclobenzaprine HCl (Cyclobenzaprine HCl) 10 Mg Tablet, 10 MG PO Q8H PRN for SPASMS Prescribed by: JAXSON ANDERSON on 10/31/18 1810 Ibuprofen (Ibuprofen) 800 Mg Tablet, 800 MG PO Q8H PRN for PAIN Prescribed by: HERON PERLA on 01/06/21 1643 Levothyroxine Sodium (Synthroid) 50 Mcg Tablet, (Reported) Entered as Reported by: PARESH KNOTT on 08/22/18 1024 Levothyroxine Sodium (Synthroid) 200 Mcg Tablet, (Reported) Entered as Reported by: PARESH KNOTT on 08/22/18 1024 Lorazepam (Lorazepam) 1 Mg Tablet, (Reported) Entered as Reported by: PARESH KNOTT on 08/22/18 1024 Promethazine HCl (Promethazine HCl) 50 Mg Supp.rect, 50 MG RC Q8H Prescribed by: TRISTEN LANDRY on 11/29/19 1555 Propranolol HCl (Propranolol HCl) 20 Mg Tablet, (Reported) Entered as Reported by: PARESH KNOTT on 08/22/18 1024 Venlafaxine HCl (Venlafaxine HCl ER) 150 Mg Cap.er.24h, (Reported) Entered as Reported by: PARESH KNOTT on 08/22/18 1024 Zolpidem Tartrate (Zolpidem Tartrate) 5 Mg Tablet, (Reported) Entered as Reported by: PARESH KNOTT on 08/22/18 1024 Review of Systems Review of Systems Constitutional: no symptoms reported Eyes: See HPI Ears, Nose, Mouth, Throat: no symptoms reported Respiratory: no symptoms reported Cardiovascular: no symptoms reported Gastrointestinal: see HPI Genitourinary: no symptoms reported : No Musculoskeletal: see HPI Skin: no symptoms reported Psychiatric/Neurological: See HPI Past Lwfdsqm-Lltbyk-Iexcih Hx Patient Social History Tobacco Use?: No Use of E-Cig and/or Vaping dev: No Substance use?: No Alcohol Use?: No Pt feels they are or have been: No Immunizations Up To Date First/Initial COVID19 Vaccinat: September COVID19 Vaccination Francis: OCTOBER 2020 Third COVID19 Vaccination Date: yes Seasonal Allergies Seasonal Allergies: No Past Medical History Surgery/Hospitalization HX: Migraines Surgeries: Yes 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 Respiratory: No Cardiac: No Neurological: Yes 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 oz. 70.085069ug; 22.00 BMI Method:Stated General Appearance: WD/WN, mild distress HEENT: PERRL/EOMI, normal ENT inspection, pharynx normal Neck: normal inspection Cardiovascular: regular rate, rhythm, no edema, no murmur Respiratory: lungs clear, normal breath sounds, no respiratory distress Gastrointestinal: non tender, soft Extremities: normal inspection, no pedal edema Psychiatric: alert, oriented x 3 Crainal Nerves: normal hearing, normal speech, PERRL Motor/Sensory: no motor deficit, no sensory deficit Skin: normal color, warm/dry Progress/Results/Core Measures Results/Orders My Orders Orders - PEÑA MONTANEZ MD Ed Iv/Invasive Line Start (08/31/21 21:50) Ketorolac Injection (Toradol Injection) (08/31/21 22:15) Promethazine Injection (Phenergan Injec (08/31/21 22:15) Diphenhydramine Injection (Benadryl Inje (08/31/21 22:15) Medications Given in ED Current Medications Medications Dose Ordered Sig/Shell Route Start Time Stop Time Status Last Admin Dose Admin Diphenhydramine HCl 25 mg ONCE ONCE IM 08/31/21 22:15 08/31/21 22:16 DC 08/31/21 22:15 25 MG Ketorolac Tromethamine 30 mg ONCE ONCE IM 08/31/21 22:15 08/31/21 22:16 DC 08/31/21 22:16 30 MG Promethazine HCl 25 mg ONCE ONCE IM 08/31/21 22:15 08/31/21 22:16 DC 08/31/21 22:18 25 MG Vital Signs/I&O 08/31/21 08/31/21 21:37 22:26 Temp 36.2 36.2 Pulse 113 113 Resp 17 17 B/P (MAP) 132/88 (103) 132/88 Pulse Ox 99 99 O2 Delivery Room Air Room Air Blood Pressure Mean: 103 Progress Progress Note : Progress Note I offered patient her usual medications including Phenergan, Toradol, and Benadryl. Initially she requested these by IV route with IV fluids with intention to also test her thyroid and vitamin D levels. However, she changed her mind and requested only injections be administered with no IV attempt. Medications were administered and patient was discharged. Departure Impression Primary Impression: Migraine headache with aura Qualified Codes: G43.109 - Migraine with aura, not intractable, without status migrainosus Additional Impression: Nausea and vomiting Qualified Codes: R11.2 - Nausea with vomiting, unspecified Disposition: 01 HOME, SELF-CARE Condition: Stable Departure-Patient Inst. Decision time for Depature: 22:12 Referrals: SABINA VELOZ MD (PCP/Family) Primary Care Physician Patient Instructions: Migraines in Adults Add. Discharge Instructions: Return home and rest in a quiet, calm, dark place while your medications are taking effect. Drink plenty of clear liquids to stay well-hydrated. You may take Zofran and/or Phenergan as previously prescribed for nausea and vomiting. Follow-up with your primary care provider soon as possible and have your hypothyroidism and vitamin D deficiency monitored. Follow-up with your neurologist by phone tomorrow regarding your increased frequency and intensity of headaches. Call with questions or concerns. Return to the ER if you have worsening symptoms despite following these instructions. All discharge instructions reviewed with patient and/or family. Voiced understanding. PEÑA MONTANEZ MD Aug 31, 2021 22:13
[2021-08-31] MEDS ORDERED: PROMETHAZINE INJ 25 MG/ML (PHENERGAN) AMP IM ONE (22:15)
[2021-08-31] MEDS ORDERED: KETOROLAC 30 MG/ML VIAL IM ONE (22:15)
[2021-08-31] MEDS ORDERED: diphenhydrAMINE 50 MG/ML INJ (BENADRYL) IM ONE (22:15)
[2021-08-31 22:26] VITALS: BP 132/88
== END 2021-08-31 22:26 | disposition home or self-care (01) ==
LOC: EDUNIT# 21:30 → ER FS 21:31
DX: G43.109 Migraine with aura, not intractable, without status migrainosus (principal)
CPT/HCPCS: 99284

== ENCOUNTER 2021-09-13 04:07 | Emergency (ER) | payer MEDICARE ==
[~2021-09-13] VITALS: Ht 170 cm; Wt 68.0 kg
[2021-09-13 04:24] VITALS: BP 128/79
[2021-09-13] MEDS ORDERED: diphenhydrAMINE 50 MG/ML INJ (BENADRYL) IM STA (04:38)
[2021-09-13] MEDS ORDERED: KETOROLAC 60 MG/2 ML VIAL IM STA (04:38)
[2021-09-13] MEDS ORDERED: PROMETHAZINE INJ 25 MG/ML (PHENERGAN) AMP IM STA (04:38)
[2021-09-13] MEDS ORDERED: LORazepam INJ 2 MG/ML (ATIVAN) VIAL IM STA (04:38)
--- NOTE | 2021-09-13 04:43 | ED Headache ---
General Chief Complaint: Head/Cervical Problems Stated Complaint: MIGRAINE Nursing Triage Note: PT PRESENT WITH C/O H/A THAT BEGAN YESTERDAY AND IS OCCUMPINIED BY N/V. REPORTS HX OF MIGRAINES. REPORTS TAKE EXEDRIN AT HOME AND ZOFRAN WITHOUT RELIEF OF SYMPTOMS Source: patient, old records History of Present Illness Date Seen by Provider: Sep 13, 2021 Time Seen by Provider: 04:18 Initial Comments 40-year-old female presenting with migraine headache the started on the left side and now is moved to the right side. She also has been having sinus pressure. She had tried taking Excedrin Migraine and Zofran at home without relief. She has been under increased stress with trying to move her household as well as her father had surgery on Sunday and she was worried that he was going to have complications or problems. She states that she knows it is an irrational worry but she is very concerned that he would have health problems or complications from his surgery. She states that other family members have had similar sinus congestion and were able to get over it quickly. She has been trying to take zinc and lyhr-ebg-ayfgsat medicine to help. She feels like she has had increased migraine headaches in the last several weeks since her last Botox injection and was concerned that she did not get all the same shots that she usually gets as well as some of the medicine have leaked out. Timing/Duration: 24 hours Severity/Quality: severe Prior Headaches/Recent Trauma: frequent headaches, chronic headaches Modifying Factors: worse with exposure to light Associated Symptoms: No confusion; fatigue, facial pain (maxillary sinus pressure); No fever/chills, No flushing, No loss of consciousness; nausea/vomiting, nasal congestion, nasal drainage; No numbness in legs/feet, No rash, No seizures, No stiff neck, No vision changes, No weakness Allergies and Home Medications Allergies Coded Allergies: Sulfa (Sulfonamide Antibiotics) (Verified Allergy, Mild, Itching, 03/14/19) cefuroxime (Verified Allergy, Unknown, 08/21/18) haloperidol (Verified Allergy, Unknown, 10/31/18) magnesium (Verified Allergy, Unknown, 08/21/18) prochlorperazine (Verified Allergy, Unknown, rash, 08/21/18) topiramate (Verified Allergy, Unknown, 08/21/18) tramadol (Verified Allergy, Unknown, 10/31/18) Uncoded Allergies: DHE (Allergy, Unknown, 10/31/18) Patient Home Medication List Home Medication List Reviewed: Yes Bupropion HCl (Bupropion HCl Sr) 150 Mg Tablet.er, (Reported) Entered as Reported by: PARESH KNOTT on 08/22/18 1024 Butalbital/Aspirin/Caffeine (Fiorinal 50-325-40 mg Capsule) 1 Each Capsule, 1 EACH PO TID PRN for Headache Prescribed by: MELANIE CLAYTON on 09/02/19 1856 Butorphanol Tartrate (Butorphanol Tartrate) 25 Mg [place], (Reported) Entered as Reported by: PARESH KNOTT on 08/22/18 1024 Clindamycin HCl (Clindamycin HCl) 300 Mg Capsule, (Reported) Entered as Reported by: TRACEY RAZO on 10/31/18 1716 Cyclobenzaprine HCl (Cyclobenzaprine HCl) 10 Mg Tablet, 10 MG PO Q8H PRN for SPASMS Prescribed by: JAXSON ANDERSON on 10/31/18 1810 Ibuprofen (Ibuprofen) 800 Mg Tablet, 800 MG PO Q8H PRN for PAIN Prescribed by: HERON PERLA on 01/06/21 1643 Levothyroxine Sodium (Synthroid) 50 Mcg Tablet, (Reported) Entered as Reported by: PARESH KNOTT on 08/22/18 1024 Levothyroxine Sodium (Synthroid) 200 Mcg Tablet, (Reported) Entered as Reported by: PARESH KNOTT on 08/22/18 1024 Lorazepam (Lorazepam) 1 Mg Tablet, (Reported) Entered as Reported by: PARESH KNOTT on 08/22/18 1024 Promethazine HCl (Promethazine HCl) 50 Mg Supp.rect, 50 MG RC Q8H Prescribed by: TRISTEN LANDRY on 11/29/19 1555 Propranolol HCl (Propranolol HCl) 20 Mg Tablet, (Reported) Entered as Reported by: PARESH KNOTT on 08/22/18 1024 Venlafaxine HCl (Venlafaxine HCl ER) 150 Mg Cap.er.24h, (Reported) Entered as Reported by: PARESH KNOTT on 08/22/18 1024 Zolpidem Tartrate (Zolpidem Tartrate) 5 Mg Tablet, (Reported) Entered as Reported by: PARESH KNOTT on 08/22/18 1024 Review of Systems Review of Systems Constitutional: No chills, No fever Eyes: Photophobia; Denies Vision Changes Ears, Nose, Mouth, Throat: denies ear pain, denies ear discharge; nose discharge; denies epistaxis Respiratory: No cough, No short of breath Cardiovascular: No chest pain Gastrointestinal: see HPI Genitourinary: no symptoms reported Musculoskeletal: no symptoms reported Skin: no symptoms reported Psychiatric/Neurological: Anxiety, Headache Past Ksocnsy-Qlxuhv-Hpqaei Hx Patient Social History Tobacco Use?: No Substance use?: No Alcohol Use?: No Pt feels they are or have been: No Immunizations Up To Date Influenza Vaccine Up-to-Date: Yes; Up-to-Date First/Initial COVID19 Vaccinat: up to date Second COVID19 Vaccination Francis: OCTOBER 2020 Third COVID19 Vaccination Date: yes Seasonal Allergies Seasonal Allergies: No Past Medical History Surgery/Hospitalization HX: Migraines, Anxiwty Surgeries: Yes 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 Respiratory: No Cardiac: No 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 oz. 70.735832yd; 23.00 BMI Method:Stated General Appearance: WD/WN, moderate distress, other (anxious) HEENT: PERRL/EOMI, pharyngeal erythema; No tonsillar exudate Neck: non-tender, full range of motion, supple, normal inspection Cardiovascular: normal peripheral pulses, regular rate, rhythm Respiratory: chest non-tender, lungs clear, normal breath sounds Extremities: normal range of motion, non-tender, normal inspection, normal capillary refill Psychiatric: alert, oriented x 3 Crainal Nerves: normal hearing, normal speech, PERRL Coordination/Gait: normal gait Motor/Sensory: no motor deficit, no sensory deficit Skin: normal color, warm/dry; No rash Progress/Results/Core Measures Results/Orders My Orders Orders - SUSANA LOPEZ MD Ketorolac Injection (Toradol Injection) (09/13/21 04:38) Promethazine Injection (Phenergan Injec (09/13/21 04:38) Diphenhydramine Injection (Benadryl Inje (09/13/21 04:38) Lorazepam Injection (Ativan Injection) (09/13/21 04:38) Vital Signs/I&O 09/13/21 09/13/21 04:24 04:58 Temp 36.7 37.0 Pulse 95 Resp 18 B/P (MAP) 128/79 (95) Pulse Ox 100 O2 Delivery Room Air Blood Pressure Mean: 95 Progress Progress Note : Progress Note With her stating this feels like her usual migraine headache will give combination of medicines that she usually has relief of her symptoms. She usually has Toradol, Phenergan, Benadryl and since she is having increased stress and anxiety we will add a dose of Ativan as well. These were all given IM as patient has very poor IV access and being stuck for an IV increases her anxiety and stress. Counseled to continue to rest in a cool dark room and continue her regular medicines. Follow-up with primary care for continued concerns Departure Impression Primary Impression: Migraine headache without aura Qualified Codes: G43.019 - Migraine without aura, intractable, without status migrainosus Additional Impressions: Sinus pressure Stress Disposition: 01 HOME, SELF-CARE Condition: Stable Departure-Patient Inst. Decision time for Depature: 04:43 Referrals: SABINA VEOLZ MD (PCP/Family) Primary Care Physician Patient Instructions: Migraines in Adults Add. Discharge Instructions: Continue on regular medications. Check back with Dr. Veloz for continued symptoms and concerns All discharge instructions reviewed with patient and/or family. Voiced understanding. SUSANA LOPEZ MD Sep 13, 2021 04:43
== END 2021-09-13 05:08 | disposition home or self-care (01) ==
LOC: EDUNIT# 04:07 → ER FS 04:10
DX: G43.009 Migraine without aura, not intractable, without status migrainosus (principal); J34.89 Other specified disorders of nose and nasal sinuses; F43.9 Reaction to severe stress, unspecified
CPT/HCPCS: 96372; 99284

== ENCOUNTER 2021-09-18 04:09 | Emergency (ER) | payer MEDICARE ==
[~2021-09-18] VITALS: Ht 170.1 cm; Wt 68.7 kg
[2021-09-18 04:13] VITALS: BP 135/79
--- NOTE | 2021-09-18 04:19 | ED Headache ---
General Chief Complaint: Head/Cervical Problems Stated Complaint: MIGRAINE History of Present Illness Date Seen by Provider: Sep 18, 2021 Time Seen by Provider: 04:18 Initial Comments 40-year-old female with a "migraine" patient has innumerable visits including this being the fourth 1 this month. Patient requests Toradol Reglan and Benadryl. Patient states that she sees a neurologist in the cancer area and gets Botox injections. Patient states that her last Botox injection was in July however "she does not think it is working as well" patient has some mild nausea., Photophobia. This is similar to her previous innumerable visits. Allergies and Home Medications Allergies Coded Allergies: Sulfa (Sulfonamide Antibiotics) (Verified Allergy, Mild, Itching, 03/14/19) cefuroxime (Verified Allergy, Unknown, 08/21/18) haloperidol (Verified Allergy, Unknown, 10/31/18) magnesium (Verified Allergy, Unknown, 08/21/18) prochlorperazine (Verified Allergy, Unknown, rash, 08/21/18) topiramate (Verified Allergy, Unknown, 08/21/18) tramadol (Verified Allergy, Unknown, 10/31/18) Uncoded Allergies: DHE (Allergy, Unknown, 10/31/18) Patient Home Medication List Home Medication List Reviewed: Yes Bupropion HCl (Bupropion HCl Sr) 150 Mg Tablet.er, (Reported) Entered as Reported by: PARESH KNOTT on 08/22/18 1024 Butalbital/Aspirin/Caffeine (Fiorinal 50-325-40 mg Capsule) 1 Each Capsule, 1 EACH PO TID PRN for Headache Prescribed by: MELANIE CLAYTON on 09/02/19 1856 Butorphanol Tartrate (Butorphanol Tartrate) 25 Mg [place], (Reported) Entered as Reported by: PARESH KNOTT on 08/22/18 1024 Clindamycin HCl (Clindamycin HCl) 300 Mg Capsule, (Reported) Entered as Reported by: TRACEY RAZO on 10/31/18 1716 Cyclobenzaprine HCl (Cyclobenzaprine HCl) 10 Mg Tablet, 10 MG PO Q8H PRN for SPASMS Prescribed by: JAXSON ANDERSON on 10/31/18 181 Ibuprofen (Ibuprofen) 800 Mg Tablet, 800 MG PO Q8H PRN for PAIN Prescribed by: HERON PERLA on 01/06/21 1643 Levothyroxine Sodium (Synthroid) 50 Mcg Tablet, (Reported) Entered as Reported by: PARESH KNOTT on 08/22/18 1024 Levothyroxine Sodium (Synthroid) 200 Mcg Tablet, (Reported) Entered as Reported by: PARESH KNOTT on 08/22/18 1024 Lorazepam (Lorazepam) 1 Mg Tablet, (Reported) Entered as Reported by: PARESH KNOTT on 08/22/18 1024 Promethazine HCl (Promethazine HCl) 50 Mg Supp.rect, 50 MG RC Q8H Prescribed by: TRISTEN LANDRY on 11/29/19 1555 Propranolol HCl (Propranolol HCl) 20 Mg Tablet, (Reported) Entered as Reported by: PARESH KNOTT on 08/22/18 1024 Venlafaxine HCl (Venlafaxine HCl ER) 150 Mg Cap.er.24h, (Reported) Entered as Reported by: PARESH KNOTT on 08/22/18 1024 Zolpidem Tartrate (Zolpidem Tartrate) 5 Mg Tablet, (Reported) Entered as Reported by: PARESH KNOTT on 08/22/18 1024 Review of Systems Review of Systems Constitutional: see HPI Eyes: No Symptoms Reported Ears, Nose, Mouth, Throat: no symptoms reported Respiratory: no symptoms reported Cardiovascular: no symptoms reported Gastrointestinal: see HPI Musculoskeletal: no symptoms reported Skin: no symptoms reported Psychiatric/Neurological: See HPI Past Kuinrba-Prkxbd-Hmnplo Hx Immunizations Up To Date First/Initial COVID19 Vaccinat: up to date Second COVID19 Vaccination Francis: OCTOBER 2020 Third COVID19 Vaccination Date: yes Seasonal Allergies Seasonal Allergies: No Past Medical History Surgery/Hospitalization HX: Migraines, Anxiwty Surgeries: Yes 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 Respiratory: No Cardiac: No 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 oz. 70.327689fo; 23.00 BMI Method:Stated General Appearance: no apparent distress Neck: full range of motion Cardiovascular: normal peripheral pulses, regular rate, rhythm Respiratory: lungs clear, normal breath sounds Gastrointestinal: No distended Extremities: normal range of motion, non-tender Psychiatric: alert, oriented x 3 [place] Nerves: normal speech, PERRL Coordination/Gait: normal gait Motor/Sensory: no motor deficit, no sensory deficit, no pronator drift Skin: normal color, warm/dry Progress/Results/Core Measures Results/Orders My Orders Orders - LITZY WHEELER DO Ketorolac Injection (Toradol Injection) (09/18/21 04:27) Diphenhydramine Injection (Benadryl Inje (09/18/21 04:27) Promethazine Injection (Phenergan Injec (09/18/21 04:27) Vital Signs/I&O 09/18/21 04:13 Temp 37.0 Pulse 86 Resp 16 B/P (MAP) 135/79 (97) Pulse Ox 100 O2 Delivery Room Air Progress Progress Note : Progress Note Patient was prescribed 15 mg Toradol, 50 mg Benadryl and 12.5 mg Phenergan IM injections. Patient has nurse prior to receiving her injections what she is getting. Patient was upset that she is only getting 15 mg of Toradol. She asked me to come back into the room and asked for a higher dose of Toradol. I explained the patient that based on current Toradol guidelines being implemented throughout the [place] that most guidelines recommend no more than 10 mg Toradol but a maximum of 15 mg Toradol I V or IM. That it is been proven that Toradol efficacy maxes out approximately 10 mg and at that point it has a much higher risk for increasing of side effects but no increased efficacy. Patient became very upset, however based on current updated Toradol guidelines I would not prescribe her any more Toradol. Patient does have multiple visits that are very concerning for drug-seeking behavior especially being very specific about what she receives and her dosages. I did discuss with her that she needs to follow- up with her neurologist. Patient was discharged immediately after receiving her injections. Departure Impression Primary Impression: Chronic headaches Qualified Codes: R51.9 - Headache, unspecified; G89.29 - Other chronic pain Disposition: 01 HOME, SELF-CARE Condition: Stable Departure-Patient Inst. Referrals: SABINA VELOZ MD (PCP/Family) Primary Care Physician Patient Instructions: Migraines (DC) Add. Discharge Instructions: Please follow-up with your neurologist for further outpatient management All discharge instructions reviewed with patient and/or family. Voiced understanding. LITZY WHEELER DO Sep 18, 2021 04:18
[2021-09-18] MEDS ORDERED: PROMETHAZINE INJ 25 MG/ML (PHENERGAN) AMP IM STA (04:27)
[2021-09-18] MEDS ORDERED: KETOROLAC 30 MG/ML VIAL IVP STA (04:27)
[2021-09-18] MEDS ORDERED: diphenhydrAMINE 50 MG/ML INJ (BENADRYL) IM STA (04:27)
== END 2021-09-18 04:46 | disposition home or self-care (01) ==
LOC: EDUNIT# 04:09 → ER FS 04:10
DX: G89.29 Other chronic pain (principal); R51.9 Headache, unspecified
CPT/HCPCS: 99284

== ENCOUNTER 2021-09-22 01:09 | Emergency (ER) | payer MEDICARE ==
[~2021-09-22] VITALS: Ht 170 cm; Wt 68.0 kg
[2021-09-22] MEDS ORDERED: METOCLOPRAMIDE INJ 10 MG/2 ML (REGLAN) IM STA (01:25)
--- NOTE | 2021-09-22 01:25 | ED Headache ---
General Stated Complaint: MIGRAINE History of Present Illness Date Seen by Provider: Sep 22, 2021 Time Seen by Provider: 01:14 Initial Comments 40-year-old female with PMH of migraines/Botox injections, is here with complaints of left-sided migraine headache which began about 2 days ago. Patient gives history of aura which she sees spotted lights right before her migraine headaches. Her triggers are dehydration as she has not been drinking much water, and stress. Patient has associated nausea and vomiting. Patient took Excedrin at home for her headache which did not help. Denies neck pain, neck stiffness, fever, chills, abdominal pain, diarrhea Allergies and Home Medications Allergies Coded Allergies: Sulfa (Sulfonamide Antibiotics) (Verified Allergy, Mild, Itching, 03/14/19) cefuroxime (Verified Allergy, Unknown, 08/21/18) haloperidol (Verified Allergy, Unknown, 10/31/18) magnesium (Verified Allergy, Unknown, 08/21/18) prochlorperazine (Verified Allergy, Unknown, rash, 08/21/18) topiramate (Verified Allergy, Unknown, 08/21/18) tramadol (Verified Allergy, Unknown, 10/31/18) Uncoded Allergies: DHE (Allergy, Unknown, 10/31/18) Patient Home Medication List Home Medication List Reviewed: Yes Bupropion HCl (Bupropion HCl Sr) 150 Mg Tablet.er, (Reported) Entered as Reported by: PARESH KNOTT on 08/22/18 1024 Butalbital/Aspirin/Caffeine (Fiorinal 50-325-40 mg Capsule) 1 Each Capsule, 1 EACH PO TID PRN for Headache Prescribed by: MELANIE CLAYTON on 09/02/19 1856 Butorphanol Tartrate (Butorphanol Tartrate) 25 Mg [place], (Reported) Entered as Reported by: PARESH KNOTT on 08/22/18 1024 Clindamycin HCl (Clindamycin HCl) 300 Mg Capsule, (Reported) Entered as Reported by: TRACEY RAZO on 10/31/18 1716 Cyclobenzaprine HCl (Cyclobenzaprine HCl) 10 Mg Tablet, 10 MG PO Q8H PRN for SPASMS Prescribed by: JAXSON ANDERSON on 10/31/18 181 Ibuprofen (Ibuprofen) 800 Mg Tablet, 800 MG PO Q8H PRN for PAIN Prescribed by: HERON PERLA on 01/06/21 1643 Levothyroxine Sodium (Synthroid) 50 Mcg Tablet, (Reported) Entered as Reported by: PARESH KNOTT on 08/22/18 1024 Levothyroxine Sodium (Synthroid) 200 Mcg Tablet, (Reported) Entered as Reported by: PARESH KNOTT on 08/22/18 1024 Lorazepam (Lorazepam) 1 Mg Tablet, (Reported) Entered as Reported by: PARESH KNOTT on 08/22/18 1024 Promethazine HCl (Promethazine HCl) 50 Mg Supp.rect, 50 MG RC Q8H Prescribed by: TRISTEN LANDRY on 11/29/19 1555 Propranolol HCl (Propranolol HCl) 20 Mg Tablet, (Reported) Entered as Reported by: PARESH KNOTT on 08/22/18 1024 Venlafaxine HCl (Venlafaxine HCl ER) 150 Mg Cap.er.24h, (Reported) Entered as Reported by: PARESH KNOTT on 08/22/18 1024 Zolpidem Tartrate (Zolpidem Tartrate) 5 Mg Tablet, (Reported) Entered as Reported by: PARESH KNOTT on 08/22/18 1024 Review of Systems Review of Systems Constitutional: no symptoms reported Eyes: Photophobia Ears, Nose, Mouth, Throat: no symptoms reported Respiratory: no symptoms reported Cardiovascular: no symptoms reported Gastrointestinal: no symptoms reported Genitourinary: no symptoms reported Musculoskeletal: no symptoms reported, muscle cramps Psychiatric/Neurological: Headache, Weakness Past Cfgjytz-Riuivb-Wyounk Hx Immunizations Up To Date First/Initial COVID19 Vaccinat: up to date Second COVID19 Vaccination Francis: OCTOBER 2020 Third COVID19 Vaccination Date: yes Seasonal Allergies Seasonal Allergies: No Past Medical History Surgery/Hospitalization HX: Migraines, Anxiwty Surgeries: Yes 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 Respiratory: No Cardiac: No 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 oz. 70.405776gm; 23.00 BMI Method:Stated General Appearance: mild distress Progress/Results/Core Measures Results/Orders My Orders Orders - ESTEFANY HOROWITZ MD Ketorolac Injection (Toradol Injection) (09/22/21 01:30) Diphenhydramine Injection (Benadryl Inje (09/22/21 01:30) Promethazine Injection (Phenergan Injec (09/22/21 01:30) Metoclopramide Injection (Reglan Injecti (09/22/21 01:25) Medications Given in ED Current Medications Medications Dose Ordered Sig/Shell Route Start Time Stop Time Status Last Admin Dose Admin Diphenhydramine HCl 50 mg ONCE ONCE IM 09/22/21 01:30 09/22/21 01:31 DC 09/22/21 01:41 50 MG Ketorolac Tromethamine 15 mg ONCE ONCE IM 09/22/21 01:30 09/22/21 01:31 DC 09/22/21 01:46 15 MG Promethazine HCl 25 mg ONCE ONCE IVP 09/22/21 01:30 09/22/21 01:31 DC 09/22/21 01:42 25 MG Vital Signs/I&O 09/22/21 01:10 Temp 36.4 Pulse 120 Resp 17 B/P (MAP) 130/101 (111) Pulse Ox 100 O2 Delivery Room Air Progress Progress Note : Progress Note 1. MIGRAINE: - Migraine cocktail of Benadryl, Compazine, and Toradol IM -Patient feels much improvement after medication -Advised patient to keep well-hydrated with enough water intake. -Follow-up with PCP -The patient was seen in the ED, and treated appropriately to presentation at a specific point in time. Patient is informed that there is a possibility that disease and illness can evolve and change in acuity rapidly or slowly after patient is discharged from the ER. Precautionary advice given to the patient for immediate return to ER if symptoms worsen or do not resolve, and to seek emergency care sooner rather than later. Pt also advised on the importance of PCP follow up and compliance with management and follow up plan. Pt verbally expressed understanding. Departure Impression Primary Impression: Migraine Qualified Codes: G43.119 - Migraine with aura, intractable, without status migrainosus Disposition: 01 HOME, SELF-CARE Condition: Improved Departure-Patient Inst. Referrals: SABINA VELOZ MD (PCP/Family) Primary Care Physician Patient Instructions: Migraines (DC) Add. Discharge Instructions: -Advised patient to keep well-hydrated with enough water intake. -Follow-up with PCP -The patient was seen in the ED, and treated appropriately to presentation at a specific point in time. Patient is informed that there is a possibility that disease and illness can evolve and change in acuity rapidly or slowly after patient is discharged from the ER. Precautionary advice given to the patient for immediate return to ER if symptoms worsen or do not resolve, and to seek emergency care sooner rather than later. Pt also advised on the importance of PCP follow up and compliance with management and follow up plan. Pt verbally expressed understanding. ESTEFANY HOROWITZ MD Sep 22, 2021 01:25
[2021-09-22] MEDS ORDERED: PROMETHAZINE INJ 25 MG/ML (PHENERGAN) AMP IVP ONE (01:30)
[2021-09-22] MEDS ORDERED: diphenhydrAMINE 50 MG/ML INJ (BENADRYL) IM ONE (01:30)
[2021-09-22] MEDS ORDERED: KETOROLAC 30 MG/ML VIAL IM ONE (01:30)
[2021-09-22 02:18] VITALS: BP 124/80
== END 2021-09-22 02:18 | disposition home or self-care (01) ==
LOC: EDUNIT# 01:09 → ER FS 01:10
DX: G43.909 Migraine, unspecified, not intractable, without status migrainosus (principal)
CPT/HCPCS: 99284

== ENCOUNTER 2021-09-22 18:54 | Emergency (ER) | payer MEDICARE ==
[~2021-09-22] VITALS: Ht 170.1 cm; Wt 68.0 kg
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
[2021-09-22] MEDS ORDERED: diphenhydrAMINE 50 MG/ML INJ (BENADRYL) IM STA (19:09)
[2021-09-22] MEDS ORDERED: KETOROLAC 30 MG/ML VIAL IM ONE (19:15)
[2021-09-22] MEDS ORDERED: OLANZapine 5 MG ODT (ZyPREXA ZYDIS) PO ONE (19:15)
[2021-09-22 19:38] VITALS: BP 125/65
== END 2021-09-22 19:38 | disposition home or self-care (01) ==
LOC: EDUNIT# 18:54 → ER FS 18:55
DX: G89.29 Other chronic pain (principal); R51.9 Headache, unspecified
CPT/HCPCS: 99284

== ENCOUNTER 2021-10-07 15:20 | Emergency (ER) | payer MEDICARE ==
[~2021-10-07] VITALS: Ht 170.1 cm; Wt 69.2 kg
[2021-10-07] MEDS ORDERED: diphenhydrAMINE 50 MG/ML INJ (BENADRYL) IM ONE (16:45)
[2021-10-07] MEDS ORDERED: PROMETHAZINE INJ 25 MG/ML (PHENERGAN) AMP IM ONE (16:45)
[2021-10-07] MEDS ORDERED: KETOROLAC 60 MG/2 ML VIAL IM ONE (16:45)
--- NOTE | 2021-10-07 16:48 | ED General ---
General Chief Complaint: General Problems/Pain Stated Complaint: HEADACHE Nursing Triage Note: Patient c/o migraine GROSSMAN that started last night with vomiting. Pt. states she has vomited x 3-4 in last 24 hrs. Pt. states she has a little blurry vision with her migraine GROSSMAN. Pt. states her pain goes from the Rt. side of her neck up the back of her head on the Rt. side. Pt. states she has taken Zofran, Benadry, and Ativan at home for her 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. Pt. walked into ER overflow room with steady gait. No s/s of distress. Pt. has a bottle of water with her and denies any vomiting after drinking the water. No active vomiting upon coming into ER room. Source of Information: Patient Exam Limitations: No Limitations History of Present Illness Date Seen by Provider: Oct 07, 2021 Time Seen by Provider: 16:00 Initial Comments Patient is a 40-year-old female with history of chronic migraines who is well- known to this emergency department who presents with typical migraine headache with nausea and vomiting starting 18 hours prior to arrival. Headache is mild to moderate. Patient reports light sensitivity. No known triggers. No other symptoms or complaints. Timing/Duration: 12-24 Hours Severity: Moderate Modifying Factors: improves with Other Associated Systoms: Other Allergies and Home Medications Allergies Coded Allergies: Sulfa (Sulfonamide Antibiotics) (Verified Allergy, Mild, Itching, 03/14/19) cefuroxime (Verified Allergy, Unknown, 08/21/18) haloperidol (Verified Allergy, Unknown, 10/31/18) magnesium (Verified Allergy, Unknown, 08/21/18) prochlorperazine (Verified Allergy, Unknown, rash, 08/21/18) topiramate (Verified Allergy, Unknown, 08/21/18) tramadol (Verified Allergy, Unknown, 10/31/18) Uncoded Allergies: DHE (Allergy, Unknown, 10/31/18) Patient Home Medication List Home Medication List Reviewed: Yes Bupropion HCl (Bupropion HCl Sr) 150 Mg Tablet.er, (Reported) Entered as Reported by: PARESH KNOTT on 08/22/18 1024 Butalbital/Aspirin/Caffeine (Fiorinal 50-325-40 mg Capsule) 1 Each Capsule, 1 EACH PO TID PRN for Headache Prescribed by: MELANIE CLAYTON on 09/02/19 1856 Butorphanol Tartrate (Butorphanol Tartrate) 25 Mg [place], (Reported) Entered as Reported by: PARESH KNOTT on 08/22/18 1024 Clindamycin HCl (Clindamycin HCl) 300 Mg Capsule, (Reported) Entered as Reported by: TRACEY RAZO on 10/31/18 1716 Cyclobenzaprine HCl (Cyclobenzaprine HCl) 10 Mg Tablet, 10 MG PO Q8H PRN for SPASMS Prescribed by: JAXSON ANDERSON on 10/31/18 1810 Ibuprofen (Ibuprofen) 800 Mg Tablet, 800 MG PO Q8H PRN for PAIN Prescribed by: HERON PERLA on 01/06/21 1643 Levothyroxine Sodium (Synthroid) 50 Mcg Tablet, (Reported) Entered as Reported by: PARESH KNOTT on 08/22/18 1024 Levothyroxine Sodium (Synthroid) 200 Mcg Tablet, (Reported) Entered as Reported by: PARESH KNOTT on 08/22/18 1024 Lorazepam (Lorazepam) 1 Mg Tablet, (Reported) Entered as Reported by: PARESH KNOTT on 08/22/18 1024 Promethazine HCl (Promethazine HCl) 50 Mg Supp.rect, 50 MG RC Q8H Prescribed by: TRISTEN LANDRY on 11/29/19 1555 Propranolol HCl (Propranolol HCl) 20 Mg Tablet, (Reported) Entered as Reported by: PARESH KNOTT on 08/22/18 1024 Venlafaxine HCl (Venlafaxine HCl ER) 150 Mg Cap.er.24h, (Reported) Entered as Reported by: PARESH KNOTT on 08/22/18 1024 Zolpidem Tartrate (Zolpidem Tartrate) 5 Mg Tablet, (Reported) Entered as Reported by: PARESH KNOTT on 08/22/18 1024 Review of Systems Review of Systems Constitutional: see HPI EENTM: see HPI Cardiovascular: see HPI Gastrointestinal: see HPI Genitourinary: see HPI Musculoskeletal: see HPI Skin: see HPI Psychiatric/Neurological: See HPI Hematologic/Lymphatic: See HPI Immunological/Allergic: see HPI All Other Systems Reviewed Negative Unless Noted: Yes Past Nmswgwi-Nidubu-Cleiny Hx Patient Social History Tobacco Use?: Yes Smoking Status: Never a Smoker Smokeless Tobacco Frequency: Never a User Use of E-Cig and/or Vaping Chato: Never a User Substance use?: No Alcohol Use?: No Pt feels they are or have been: No Immunizations Up To Date Influenza Vaccine Up-to-Date: Yes; Up-to-Date First/Initial COVID19 Vaccinat: up to date Second COVID19 Vaccination Francis: up to date Third COVID19 Vaccination Date: up to date Seasonal Allergies Seasonal Allergies: No Past Medical History 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, 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 Surgeries: Yes 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 Respiratory: No Cardiac: No 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 oz. 70.754444bn; 23.00 BMI Method:Stated General Appearance: No Apparent Distress Eyes: Bilateral Eye Normal Inspection, Bilateral Eye PERRL, Bilateral Eye EOMI HEENT: PERRL/EOMI Neck: Normal Inspection Respiratory: Lungs Clear, Normal Breath Sounds Cardiovascular: Regular Rate, Rhythm Neurologic/Psychiatric: Alert, Oriented x3, No Motor/Sensory Deficits Focused Exam Sepsis Stage: Ruled Out Progress/Results/Core Measures Suspected Sepsis SIRS Temperature: Pulse: 106 Respiratory Rate: 14 Blood Pressure 124 /70 Mean: 88 Results/Orders My Orders Orders - TRISTEN LANDRY DO Ketorolac Injection (Toradol Injection) (10/07/21 16:45) Diphenhydramine Injection (Benadryl Inje (10/07/21 16:45) Promethazine Injection (Phenergan Injec (10/07/21 16:45) Vital Signs/I&O 10/07/21 15:32 Temp 36.8 Pulse 106 Resp 14 B/P (MAP) 124/70 (88) Capillary Refill : Blood Pressure Mean: 88 Departure Communication (Admissions) Typical migraine headache, pain addressed. Patient instructed follow-up with PC P/neurologist Impression Primary Impression: Chronic migraine Disposition: 01 HOME, SELF-CARE Condition: Stable Departure-Patient Inst. Decision time for Depature: 16:47 Referrals: SABINA VELOZ MD (PCP) Primary Care Physician Patient Instructions: Migraines (DC) Add. Discharge Instructions: Please follow-up with your PCP and/or neurologist for additional management. All discharge instructions reviewed with patient and/or family. Voiced unders tanding. TRISTEN LANDRY DO Oct 07, 2021 16:48
[2021-10-07 17:05] VITALS: BP 103/72
== END 2021-10-07 17:05 | disposition home or self-care (01) ==
LOC: EDUNIT# 15:20 → ER FS 15:22
DX: G43.909 Migraine, unspecified, not intractable, without status migrainosus (principal)
CPT/HCPCS: 99284

== ENCOUNTER 2021-10-29 00:47 | Emergency (ER) | payer MEDICARE ==
[~2021-10-29 00:47] MED LIST changes: +BUPR-105; -BUPR150T14
[2021-10-29] MEDS ORDERED: PROMETHAZINE INJ 25 MG/ML (PHENERGAN) AMP IM STA (00:58)
[2021-10-29] MEDS ORDERED: KETOROLAC 30 MG/ML VIAL IM ONE (01:00)
[2021-10-29] MEDS ORDERED: diphenhydrAMINE 50 MG/ML INJ (BENADRYL) IM ONE (01:00)
--- NOTE | 2021-10-29 01:04 | ED Headache ---
General Chief Complaint: Head/Cervical Problems Stated Complaint: MIGRAINE Source: patient Exam Limitations: no limitations History of Present Illness Date Seen by Provider: October 29, 2021 Time Seen by Provider: 00:49 Initial Comments 40-year-old female with past medical history of chronic migraines coming in due to a migraine. Is been going on for years, she has had extensive work-up including at the [facility] with MRI, CT, and other modalities. She gets Botox injections every 3 months by her neurologist and she has an appointment in 9 days with her neurologist. This most recent headache started yesterday and worsened around 8 PM with an episode of nonbloody nonbilious vomiting. Its sharp, throbbing, constant, severe, nothing seems to make it better. Worse with light. Feels consistent with her typical migraines. She is otherwise denying any fever, neck stiffness, chest pain, shortness of breath, vision changes, weakness, numbness, or any other concerns Allergies and Home Medications Allergies Coded Allergies: Sulfa (Sulfonamide Antibiotics) (Verified Allergy, Mild, Itching, 03/14/19) cefuroxime (Verified Allergy, Unknown, 08/21/18) haloperidol (Verified Allergy, Unknown, 10/31/18) magnesium (Verified Allergy, Unknown, 08/21/18) prochlorperazine (Verified Allergy, Unknown, rash, 08/21/18) topiramate (Verified Allergy, Unknown, 08/21/18) tramadol (Verified Allergy, Unknown, 10/31/18) Uncoded Allergies: DHE (Allergy, Unknown, 10/31/18) Patient Home Medication List Home Medication List Reviewed: Yes Bupropion HCl (Bupropion HCl Sr) 150 Mg Tablet.er, (Reported) Entered as Reported by: PARESH KNOTT on 08/22/18 1024 Butalbital/Aspirin/Caffeine (Fiorinal 50-325-40 mg Capsule) 1 Each Capsule, 1 EACH PO TID PRN for Headache Prescribed by: MELANIE CLAYTON on 09/02/19 1856 Butorphanol Tartrate (Butorphanol Tartrate) 25 Mg [place], (Reported) Entered as Reported by: PARESH KNOTT on 08/22/18 1024 Clindamycin HCl (Clindamycin HCl) 300 Mg Capsule, (Reported) Entered as Reported by: TRACEY RAZO on 10/31/18 1716 Cyclobenzaprine HCl (Cyclobenzaprine HCl) 10 Mg Tablet, 10 MG PO Q8H PRN for SPASMS Prescribed by: JAXSON ANDERSON on 10/31/18 1810 Ibuprofen (Ibuprofen) 800 Mg Tablet, 800 MG PO Q8H PRN for PAIN Prescribed by: HERON PERLA on 01/06/21 1643 Levothyroxine Sodium (Synthroid) 50 Mcg Tablet, (Reported) Entered as Reported by: PARESH KNOTT on 08/22/18 1024 Levothyroxine Sodium (Synthroid) 200 Mcg Tablet, (Reported) Entered as Reported by: PARESH KNOTT on 08/22/18 1024 Lorazepam (Lorazepam) 1 Mg Tablet, (Reported) Entered as Reported by: PARESH KNOTT on 08/22/18 1024 Promethazine HCl (Promethazine HCl) 50 Mg Supp.rect, 50 MG RC Q8H Prescribed by: TRISTEN LANDRY on 11/29/19 1555 Propranolol HCl (Propranolol HCl) 20 Mg Tablet, (Reported) Entered as Reported by: PARESH KNOTT on 08/22/18 1024 Venlafaxine HCl (Venlafaxine HCl ER) 150 Mg Cap.er.24h, (Reported) Entered as Reported by: PARESH KNOTT on 08/22/18 1024 Zolpidem Tartrate (Zolpidem Tartrate) 5 Mg Tablet, (Reported) Entered as Reported by: PARESH KNOTT on 08/22/18 1024 Review of Systems Review of Systems Constitutional: No chills, No fever Eyes: Denies Blurred Vision Ears, Nose, Mouth, Throat: no symptoms reported Respiratory: no symptoms reported Cardiovascular: no symptoms reported Gastrointestinal: no symptoms reported Genitourinary: no symptoms reported : No Musculoskeletal: no symptoms reported Skin: no symptoms reported Psychiatric/Neurological: Headache All Other Systems Reviewed Negative Unless Noted: Yes Past Zgfcxcb-Acrrmq-Dzjpxv Hx Patient Social History Substance use?: No Immunizations Up To Date First/Initial COVID19 Vaccinat: up to date Second COVID19 Vaccination Francis: up to date Third COVID19 Vaccination Date: up to date Seasonal Allergies Seasonal Allergies: No Past Medical History 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, 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 Surgeries: Yes 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 Respiratory: No Cardiac: No 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 oz. 70.862666uf; 23.00 BMI Method:Stated General Appearance: WD/WN, mild distress, other (sunglasses on) HEENT: PERRL/EOMI, normal ENT inspection, TMs normal, pharynx normal Neck: non-tender, full range of motion, supple, normal inspection Cardiovascular: regular rate, rhythm, no edema, no murmur Respiratory: chest non-tender, lungs clear, normal breath sounds, no respiratory distress, no accessory muscle use Gastrointestinal: normal bowel sounds, non tender, soft; No distended, No guarding, No rebound Back: normal inspection, no CVA tenderness, no vertebral tenderness Extremities: normal range of motion, non-tender, normal inspection, no pedal edema, no calf tenderness, normal capillary refill Psychiatric: alert, oriented x 3 Crainal Nerves: normal hearing, normal speech, PERRL Coordination/Gait: normal finger to nose, normal gait Motor/Sensory: no motor deficit, no sensory deficit, no pronator drift Skin: normal color, warm/dry Lymphatic: no adenopathy Progress/Results/Core Measures Results/Orders My Orders Orders - LITA DE SANTIAGO MD Promethazine Injection (Phenergan Injec (10/29/21 00:58) Diphenhydramine Injection (Benadryl Inje (10/29/21 01:00) Ketorolac Injection (Toradol Injection) (10/29/21 01:00) Dexamethasone Injection (Decadron Injec (10/29/21 01:00) Progress Progress Note : Progress Note 40-year-old female with above history coming in due to headache. This is her typical headache with no red flags. ABCs intact and vital stable on presentation. Given IM injections, improving, and was discharged home. She has follow-up with her neurologist in 9 days. Departure Impression Primary Impression: Chronic migraine Disposition: HOME, SELF-CARE Condition: Stable Departure-Patient Inst. Decision time for Depature: 01:20 Referrals: SABINA VELOZ MD (PCP/Family) Primary Care Physician Patient Instructions: Headache, Adult (DC) Add. Discharge Instructions: Please continue follow-up with your neurologist and see if there are any medications they can add or change. As always stay hydrated and try to avoid your triggers. Work/School Note: Work Release Form Date Seen in the Emergency Department: October 29, 2021 Return to Work: October 30, 2021 Restrictions: No Restrictions LITA DE SANTIAGO MD October 29, 2021 01:04
[2021-10-29 01:20] VITALS: BP 136/79
== END 2021-10-29 01:20 | disposition home or self-care (01) ==
LOC: EDUNIT# 00:47 → ER FS 00:48
DX: G43.709 Chronic migraine without aura, not intractable, without status migrainosus (principal)
CPT/HCPCS: 99284

== ENCOUNTER 2021-11-07 02:16 | Emergency (ER) | payer MEDICARE ==
[~2021-11-07] VITALS: Ht 170 cm; Wt 68.0 kg
[2021-11-07 02:28] VITALS: BP 121/86
[2021-11-07] MEDS ORDERED: KETOROLAC 30 MG/ML VIAL IM STA (02:38)
[2021-11-07] MEDS ORDERED: PROMETHAZINE INJ 25 MG/ML (PHENERGAN) AMP IM STA (02:38)
[2021-11-07] MEDS ORDERED: diphenhydrAMINE 50 MG/ML INJ (BENADRYL) IM STA (02:38)
--- NOTE | 2021-11-07 02:38 | ED Headache ---
General Chief Complaint: Head/Cervical Problems Stated Complaint: HEADACHE History of Present Illness Date Seen by Provider: November 07, 2021 Time Seen by Provider: 02:34 Initial Comments 40-year-old female with past medical history of chronic migraines/BPD/thyroid disorder, is a frequent ER patient for migraine management. Patient is here today for migraine which is left-sided, with aura which was an intense feeling of nausea right before she had a migraine. Patient has associated photophobia and slight ringing in her years. Denies neck stiffness or neck pain, blurry vision, fever, nausea and vomiting, abdominal pain. Allergies and Home Medications Allergies Coded Allergies: Sulfa (Sulfonamide Antibiotics) (Verified Allergy, Mild, Itching, 03/14/19) cefuroxime (Verified Allergy, Unknown, 08/21/18) haloperidol (Verified Allergy, Unknown, 10/31/18) magnesium (Verified Allergy, Unknown, 08/21/18) prochlorperazine (Verified Allergy, Unknown, rash, 08/21/18) topiramate (Verified Allergy, Unknown, 08/21/18) tramadol (Verified Allergy, Unknown, 10/31/18) Uncoded Allergies: DHE (Allergy, Unknown, 10/31/18) Patient Home Medication List Home Medication List Reviewed: Yes Bupropion HCl (Bupropion HCl Sr) 150 Mg Tablet.er, (Reported) Entered as Reported by: PARESH KNOTT on 08/22/18 1024 Butalbital/Aspirin/Caffeine (Fiorinal 50-325-40 mg Capsule) 1 Each Capsule, 1 EACH PO TID PRN for Headache Prescribed by: MELANIE CLAYTON on 09/02/19 1856 Butorphanol Tartrate (Butorphanol Tartrate) 25 Mg [place], (Reported) Entered as Reported by: PARESH KNOTT on 08/22/18 1024 Clindamycin HCl (Clindamycin HCl) 300 Mg Capsule, (Reported) Entered as Reported by: TRACEY RAZO on 10/31/18 1716 Cyclobenzaprine HCl (Cyclobenzaprine HCl) 10 Mg Tablet, 10 MG PO Q8H PRN for SPASMS Prescribed by: JAXSON ANDERSON on 10/31/18 1810 Ibuprofen (Ibuprofen) 800 Mg Tablet, 800 MG PO Q8H PRN for PAIN Prescribed by: HERON PERLA on 01/06/21 1643 Levothyroxine Sodium (Synthroid) 50 Mcg Tablet, (Reported) Entered as Reported by: PARESH KNOTT on 08/22/18 1024 Levothyroxine Sodium (Synthroid) 200 Mcg Tablet, (Reported) Entered as Reported by: PARESH KNOTT on 08/22/18 1024 Lorazepam (Lorazepam) 1 Mg Tablet, (Reported) Entered as Reported by: PARESH KNOTT on 08/22/18 1024 Promethazine HCl (Promethazine HCl) 50 Mg Supp.rect, 50 MG RC Q8H Prescribed by: TRISTEN LANDRY on 11/29/19 1555 Propranolol HCl (Propranolol HCl) 20 Mg Tablet, (Reported) Entered as Reported by: PARESH KNOTT on 08/22/18 1024 Venlafaxine HCl (Venlafaxine HCl ER) 150 Mg Cap.er.24h, (Reported) Entered as Reported by: PARESH KNOTT on 08/22/18 1024 Zolpidem Tartrate (Zolpidem Tartrate) 5 Mg Tablet, (Reported) Entered as Reported by: PARESH KNOTT on 08/22/18 1024 Review of Systems Review of Systems Constitutional: no symptoms reported Eyes: No Symptoms Reported Ears, Nose, Mouth, Throat: no symptoms reported Respiratory: no symptoms reported Cardiovascular: no symptoms reported Gastrointestinal: no symptoms reported Genitourinary: no symptoms reported Musculoskeletal: no symptoms reported Skin: no symptoms reported Psychiatric/Neurological: Headache Past Iimsifw-Bckhhv-Iiilri Hx Patient Social History Tobacco Use?: No Use of E-Cig and/or Vaping dev: No Substance use?: No Alcohol Use?: No Pt feels they are or have been: No Immunizations Up To Date First/Initial COVID19 Vaccinat: up to date Second COVID19 Vaccination Francis: up to date Third COVID19 Vaccination Date: up to date Seasonal Allergies Seasonal Allergies: No Past Medical History 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, 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 Surgeries: Yes 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 Respiratory: No Cardiac: No 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 oz. 70.329285fr; 23.00 BMI Method:Stated General Appearance: mild distress HEENT: PERRL/EOMI, normal ENT inspection Neck: non-tender, full range of motion, supple, normal inspection Cardiovascular: regular rate, rhythm Respiratory: lungs clear Gastrointestinal: non tender, soft Psychiatric: alert, oriented x 3 Crainal Nerves: normal hearing, normal speech, PERRL Coordination/Gait: normal gait Motor/Sensory: no motor deficit, no sensory deficit Skin: normal color Progress/Results/Core Measures Results/Orders My Orders Orders - ESTEFANY HOROWITZ MD Diphenhydramine Injection (Benadryl Inje (11/07/21 02:38) Promethazine Injection (Phenergan Injec (11/07/21 02:38) Ketorolac Injection (Toradol Injection) (11/07/21 02:38) Vital Signs/I&O 11/07/21 02:28 Temp 37.0 Pulse 104 Resp 18 B/P (MAP) 121/86 (98) Pulse Ox 100 O2 Delivery Room Air Progress Progress Note : Progress Note 1. MIGRAINE WITH AURA: - Toradol im/ Phenergan im/ Benadryl im given - No red flags - Pt feels improved - Adequate hydration advised - Pt has Neurology appt this coming Departure Impression Primary Impression: Migraine with aura Qualified Codes: G43.119 - Migraine with aura, intractable, without status migrainosus Disposition: HOME, SELF-CARE Condition: Stable Departure-Patient Inst. Referrals: SABINA VELOZ MD (PCP/Family) Primary Care Physician Patient Instructions: Migraines (DC) Add. Discharge Instructions: - Adequate hydration advised - Pt has Neurology appt this All discharge instructions reviewed with patient and/or family. Voiced understanding. ESTEFANY HOROWITZ MD November 07, 2021 02:38
== END 2021-11-07 03:25 | disposition home or self-care (01) ==
LOC: EDUNIT# 02:16 → ER FS 02:18
DX: G43.119 Migraine with aura, intractable, without status migrainosus (principal)
CPT/HCPCS: 99284

== ENCOUNTER 2021-12-04 02:48 | Emergency (ER) | payer MEDICARE ==
[~2021-12-04] VITALS: Ht 170.1 cm; Wt 67.6 kg
[2021-12-04] MEDS ORDERED: KETOROLAC 60 MG/2 ML VIAL IM STA (02:58)
[2021-12-04] MEDS ORDERED: PROMETHAZINE INJ 25 MG/ML (PHENERGAN) AMP IM STA (02:58)
[2021-12-04] MEDS ORDERED: diphenhydrAMINE 50 MG/ML INJ (BENADRYL) IM STA (02:58)
--- NOTE | 2021-12-04 03:02 | ED Headache ---
General Chief Complaint: Head/Cervical Problems Stated Complaint: MIGRAINE Source: patient, old records History of Present Illness Date Seen by Provider: Dec 04, 2021 Time Seen by Provider: 02:52 Initial Comments 40-year-old female presenting with recurrent migraine headache. She has muscle tension and pain primarily on the right side of her head neck. She states this feels like her typical migraine headache. She has been fatigued since or Sunday he admitted to status been getting worse. She has been trying medications and treatments at home again today it was worse. Since midnight she has had increased pain and problems. She has some light sensitivity as well as she had some dry heaves. She denies any recent head trauma or new injury. Timing/Duration: increasing Severity/Quality: severe, constant Location: occipital (Right side), parietal (Right side) Prior Headaches/Recent Trauma: frequent headaches, chronic headaches Associated Symptoms: No confusion, No fatigue, No facial pain, No fever/chills, No flushing, No loss of consciousness; nausea/vomiting; No nasal congestion, No nasal drainage, No numbness in legs/feet, No rash, No seizures, No sinus infection, No stiff neck, No vision changes, No weakness Allergies and Home Medications Allergies Coded Allergies: Sulfa (Sulfonamide Antibiotics) (Verified Allergy, Mild, Itching, 03/14/19) cefuroxime (Verified Allergy, Unknown, 08/21/18) haloperidol (Verified Allergy, Unknown, 10/31/18) magnesium (Verified Allergy, Unknown, 08/21/18) prochlorperazine (Verified Allergy, Unknown, rash, 08/21/18) topiramate (Verified Allergy, Unknown, 08/21/18) tramadol (Verified Allergy, Unknown, 10/31/18) Uncoded Allergies: DHE (Allergy, Unknown, 10/31/18) Patient Home Medication List Home Medication List Reviewed: Yes Bupropion HCl (Bupropion HCl Sr) 150 Mg Tablet.er, (Reported) Entered as Reported by: PARESH KNOTT on 08/22/18 1024 Butalbital/Aspirin/Caffeine (Fiorinal 50-325-40 mg Capsule) 1 Each Capsule, 1 EACH PO TID PRN for Headache Prescribed by: EMLANIE CLAYTON on 09/02/191855 Butorphanol Tartrate (Butorphanol Tartrate) 25 Mg [place], (Reported) Entered as Reported by: PARESH KNOTT on 08/22/18 1024 Clindamycin HCl (Clindamycin HCl) 300 Mg Capsule, (Reported) Entered as Reported by: TRACEY RAZO on 10/31/18 1716 Cyclobenzaprine HCl (Cyclobenzaprine HCl) 10 Mg Tablet, 10 MG PO Q8H PRN for SPASMS Prescribed by: JAXSON ANDERSON on 10/31/18 1810 Ibuprofen (Ibuprofen) 800 Mg Tablet, 800 MG PO Q8H PRN for PAIN Prescribed by: HERON PERLA on 01/06/21 1643 Levothyroxine Sodium (Synthroid) 50 Mcg Tablet, (Reported) Entered as Reported by: PARESH KNOTT on 08/22/18 1024 Levothyroxine Sodium (Synthroid) 200 Mcg Tablet, (Reported) Entered as Reported by: PARESH KNOTT on 08/22/18 1024 Lorazepam (Lorazepam) 1 Mg Tablet, (Reported) Entered as Reported by: PARESH KNOTT on 08/22/18 1024 Promethazine HCl (Promethazine HCl) 50 Mg Supp.rect, 50 MG RC Q8H Prescribed by: TRISTEN LANDRY on 11/29/19 1555 Propranolol HCl (Propranolol HCl) 20 Mg Tablet, (Reported) Entered as Reported by: PARESH KNOTT on 08/22/18 1024 Venlafaxine HCl (Venlafaxine HCl ER) 150 Mg Cap.er.24h, (Reported) Entered as Reported by: PARESH KNOTT on 08/22/18 1024 Zolpidem Tartrate (Zolpidem Tartrate) 5 Mg Tablet, (Reported) Entered as Reported by: PARESH KNOTT on 08/22/18 1024 Review of Systems Review of Systems Constitutional: no symptoms reported Eyes: Photophobia Ears, Nose, Mouth, Throat: no symptoms reported Respiratory: no symptoms reported Cardiovascular: no symptoms reported Gastrointestinal: no symptoms reported Genitourinary: no symptoms reported Musculoskeletal: no symptoms reported Skin: No rash Psychiatric/Neurological: See HPI Past Rwhwhad-Yxuuli-Hywwsh Hx Immunizations Up To Date First/Initial COVID19 Vaccinat: up to date Second COVID19 Vaccination Francis: up to date Third COVID19 Vaccination Date: up to date Seasonal Allergies Seasonal Allergies: No Past Medical History 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, 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 Surgeries: Yes 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 Respiratory: No Cardiac: No Neurological: Yes 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 oz. 70.492996xg; 23.00 BMI Method:Stated General Appearance: WD/WN, no apparent distress HEENT: PERRL/EOMI, pharynx normal Neck: non-tender, full range of motion, supple, normal inspection Cardiovascular: normal peripheral pulses, regular rate, rhythm Respiratory: chest non-tender, lungs clear, normal breath sounds, no respiratory distress, no accessory muscle use Extremities: normal range of motion, non-tender, no calf tenderness, normal capillary refill Psychiatric: alert, oriented x 3 Crainal Nerves: normal hearing, normal speech, PERRL Coordination/Gait: normal gait Motor/Sensory: no motor deficit, no sensory deficit Skin: normal color, warm/dry Progress/Results/Core Measures Results/Orders My Orders Orders - SUSANA LOPEZ MD Ketorolac Injection (Toradol Injection) (12/04/21 02:58) Diphenhydramine Injection (Benadryl Inje (12/04/21 02:58) Promethazine Injection (Phenergan Injec (12/04/21 02:58) Vital Signs/I&O 12/04/21 12/04/21 02:54 03:09 Temp 36.6 36.6 Pulse 101 Resp 20 B/P (MAP) 112/98 (103) Pulse Ox 99 O2 Delivery Room Air Progress Progress Note : Progress Note Since she reports this feels like her typical migraine headache will order migraine cocktail of Toradol, Phenergan, Benadryl IM. She states she has some ativan she can take at home once the nausea is settled Departure Impression Primary Impression: Migraine headache without aura Qualified Codes: G43.019 - Migraine without aura, intractable, without status migrainosus Disposition: HOME, SELF-CARE Condition: Stable Departure-Patient Inst. Decision time for Depature: 03:02 Referrals: SABINA VELOZ MD (PCP/Family) Primary Care Physician Patient Instructions: Migraines in Adults Add. Discharge Instructions: Continue with your regular medications. Follow-up with your regular provider about continued headaches All discharge instructions reviewed with patient and/or family. Voiced understanding. SUSANA LOPEZ MD Dec 04, 2021 03:02
[2021-12-04 03:27] VITALS: BP 112/98
== END 2021-12-04 03:27 | disposition home or self-care (01) ==
LOC: EDUNIT# 02:48 → ER FS 02:50
DX: G43.009 Migraine without aura, not intractable, without status migrainosus (principal)
CPT/HCPCS: 99284

== ENCOUNTER 2021-12-18 05:07 | Emergency (ER) | payer MEDICARE ==
[2021-12-18 05:18] VITALS: BP 133/80
--- NOTE | 2021-12-18 05:40 | ED Headache ---
General Chief Complaint: Head/Cervical Problems Stated Complaint: HEADACHE Nursing Triage Note: pt presents with c/o h/a since yesterday evening. reports taking 50mg benadrl, cycobenzaprine, 12.5mg phenergan, 1mg ativan, butorfenyl all at 2029 last night. reports no relief of h/a. reports nausea and one episode of vomiting prior to taking medications. Source: patient Exam Limitations: no limitations History of Present Illness Date Seen by Provider: Dec 18, 2021 Time Seen by Provider: 05:24 Initial Comments 40-year-old female patient with history of migraine headache and frequent emergency room visits presented POV with complaining of headache. Patient states for the last 24 hours she has had left posterior head and neck and shoulder pain as a constant sharp pain like her other episodes of migraine headache associated with nausea and 3 episodes of vomiting, photophobia, phonophobia. Patient states she took several home medication but it did not help and rated her pain 8/10. Patient states she usually gets treatment with IM Toradol, Benadryl and Phenergan with good response. Patient denies fever and chills, focal neurodeficit, chest pain, shortness of breath, recent head injury. Timing/Duration: 24 hours Allergies and Home Medications Allergies Coded Allergies: Sulfa (Sulfonamide Antibiotics) (Verified Allergy, Mild, Itching, 03/14/19) cefuroxime (Verified Allergy, Unknown, 08/21/18) haloperidol (Verified Allergy, Unknown, 10/31/18) magnesium (Verified Allergy, Unknown, 08/21/18) prochlorperazine (Verified Allergy, Unknown, rash, 08/21/18) topiramate (Verified Allergy, Unknown, 08/21/18) tramadol (Verified Allergy, Unknown, 10/31/18) Uncoded Allergies: DHE (Allergy, Unknown, 10/31/18) Patient Home Medication List Home Medication List Reviewed: Yes Bupropion HCl (Bupropion HCl Sr) 150 Mg Tablet.er, (Reported) Entered as Reported by: PARESH KNOTT on 08/22/18 1024 Butalbital/Aspirin/Caffeine (Fiorinal 50-325-40 mg Capsule) 1 Each Capsule, 1 EACH PO TID PRN for Headache Prescribed by: MELANIE CLAYTON on 3/10/20 1856 Butorphanol Tartrate (Butorphanol Tartrate) 25 Mg [place], (Reported) Entered as Reported by: PARESH KNOTT on 08/22/18 1024 Levothyroxine Sodium (Synthroid) 50 Mcg Tablet, (Reported) Entered as Reported by: PARESH KNOTT on 08/22/18 1024 Levothyroxine Sodium (Synthroid) 200 Mcg Tablet, (Reported) Entered as Reported by: PARESH KNOTT on 08/22/18 1024 Lorazepam (Lorazepam) 1 Mg Tablet, (Reported) Entered as Reported by: PARESH KNOTT on 08/22/18 1024 Promethazine HCl (Promethazine HCl) 50 Mg Supp.rect, 50 MG RC Q8H Prescribed by: TRISTEN LANDRY on 11/29/19 1555 Propranolol HCl (Propranolol HCl) 20 Mg Tablet, (Reported) Entered as Reported by: PARESH KNOTT on 08/22/18 1024 Venlafaxine HCl (Venlafaxine HCl ER) 150 Mg Cap.er.24h, (Reported) Entered as Reported by: PARESH KNOTT on 08/22/18 1024 Zolpidem Tartrate (Zolpidem Tartrate) 5 Mg Tablet, (Reported) Entered as Reported by: PARESH KNOTT on 08/22/18 1024 Review of Systems Review of Systems Constitutional: no symptoms reported Eyes: See HPI Ears, Nose, Mouth, Throat: no symptoms reported Respiratory: no symptoms reported Cardiovascular: no symptoms reported Gastrointestinal: see HPI Genitourinary: no symptoms reported Musculoskeletal: no symptoms reported Skin: no symptoms reported Psychiatric/Neurological: See HPI, Headache All Other Systems Reviewed Negative Unless Noted: Yes Past Aidipqe-Mhcxyk-Ihxlyq Hx Immunizations Up To Date Influenza Vaccine Up-to-Date: No; Not Current First/Initial COVID19 Vaccinat: up to date Second COVID19 Vaccination Francis: up to date Third COVID19 Vaccination Date: up to date Seasonal Allergies Seasonal Allergies: No Past Medical History 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, 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 oz. 70.955888cc; 23.00 BMI Method:Stated General Appearance: mild distress HEENT: PERRL/EOMI, normal ENT inspection Neck: non-tender, full range of motion, supple, normal inspection Cardiovascular: normal peripheral pulses, regular rate, rhythm, no edema, no gallop, no JVD, no murmur Respiratory: chest non-tender, lungs clear, normal breath sounds, no respiratory distress, no accessory muscle use Gastrointestinal: normal bowel sounds, soft Back: normal inspection Extremities: normal range of motion, non-tender, normal inspection, no pedal edema Psychiatric: alert, oriented x 3 Crainal Nerves: normal hearing, normal speech, PERRL Motor/Sensory: no motor deficit, no sensory deficit Skin: normal color, warm/dry Progress/Results/Core Measures Results/Orders My Orders Orders - URBANO NICOLE MD Promethazine Injection (Phenergan Injec (12/18/21 05:45) Diphenhydramine Injection (Benadryl Inje (12/18/21 05:45) Ketorolac Injection (Toradol Injection) (12/18/21 05:45) Vital Signs/I&O 12/18/21 05:18 Pulse 87 Resp 16 B/P (MAP) 133/80 (97) Pulse Ox 98 O2 Delivery Room Air Blood Pressure Mean: 97 Progress Progress Note : Progress Note Evaluation of patient in ER showed 40-year-old female patient with known history of migraine headache and frequent emergency room visit with complaining of migraine headache that did not get better with treatment at home. Patient had unremarkable physical exam. Patient treated with Phenergan, Benadryl, Toradol and felt better. Patient advised to follow-up with her primary care physician and neurologist for preventive treatment of migraine headache. Patient advised to continue home medication. Departure Impression Primary Impression: Migraine headache without aura Qualified Codes: G43.009 - Migraine without aura, not intractable, without status migrainosus Disposition: HOME, SELF-CARE Condition: Improved Departure-Patient Inst. Decision time for Depature: 06:00 Referrals: SABINA VELOZ MD (PCP/Family) Primary Care Physician Patient Instructions: Migraines in Adults, Nausea and Vomiting, Adult (DC) Add. Discharge Instructions: Continue home medication Follow-up with your neurologist and PCP for preventive treatment of migraine headache Return as needed All discharge instructions reviewed with patient and/or family. Voiced understanding. URBANO NICOLE MD Dec 18, 2021 05:40
[2021-12-18] MEDS ORDERED: diphenhydrAMINE 50 MG/ML INJ (BENADRYL) IM ONE (05:45)
[2021-12-18] MEDS ORDERED: KETOROLAC 60 MG/2 ML VIAL IM ONE (05:45)
[2021-12-18] MEDS ORDERED: PROMETHAZINE INJ 25 MG/ML (PHENERGAN) AMP IM ONE (05:45)
== END 2021-12-18 06:01 | disposition home or self-care (01) ==
LOC: EDUNIT# 05:07 → ER FS 05:09
DX: G43.009 Migraine without aura, not intractable, without status migrainosus (principal)
CPT/HCPCS: 99284

== ENCOUNTER 2022-01-11 01:00 | Emergency (ER) | payer MEDICARE ==
--- NOTE | 2022-01-11 01:26 | ED Headache ---
General Chief Complaint: Head/Cervical Problems Stated Complaint: MIGRAINE Nursing Triage Note: Pt complaining of a migraine that started a few days ago Source: patient Exam Limitations: no limitations History of Present Illness Date Seen by Provider: Jan 11, 2022 Time Seen by Provider: 01:11 Initial Comments 41-year-old female patient with history of migraine headache complaining of left-sided headache as a throbbing pain for the last 5 days likely previous episodes of migraine headache, associated with 3 episodes of vomiting and constant nausea. Patient states she took her home pain medication and nausea medication but her headache did not get better. Patient denies fever and chills, neck pain, focal neurodeficits, . Allergies and Home Medications Allergies Coded Allergies: Sulfa (Sulfonamide Antibiotics) (Verified Allergy, Mild, Itching, 03/14/19) cefuroxime (Verified Allergy, Unknown, 08/21/18) haloperidol (Verified Allergy, Unknown, 10/31/18) magnesium (Verified Allergy, Unknown, 08/21/18) prochlorperazine (Verified Allergy, Unknown, rash, 08/21/18) topiramate (Verified Allergy, Unknown, 08/21/18) tramadol (Verified Allergy, Unknown, 10/31/18) Uncoded Allergies: DHE (Allergy, Unknown, 10/31/18) Patient Home Medication List Home Medication List Reviewed: Yes Bupropion HCl (Bupropion HCl Sr) 150 Mg Tablet.er, (Reported) Entered as Reported by: PARESH KNOTT on 08/22/18 1024 Butalbital/Aspirin/Caffeine (Fiorinal 50-325-40 mg Capsule) 1 Each Capsule, 1 EACH PO TID PRN for Headache Prescribed by: MELANIE CLAYTON on 09/02/19 1856 Butorphanol Tartrate (Butorphanol Tartrate) 25 Mg [place], (Reported) Entered as Reported by: PARESH KNOTT on 08/22/18 1024 Levothyroxine Sodium (Synthroid) 50 Mcg Tablet, (Reported) Entered as Reported by: PARESH KNOTT on 08/22/18 1024 Levothyroxine Sodium (Synthroid) 200 Mcg Tablet, (Reported) Entered as Reported by: PARESH KNOTT on 08/22/18 1024 Lorazepam (Lorazepam) 1 Mg Tablet, (Reported) Entered as Reported by: PARESH KNOTT on 08/22/18 1024 Promethazine HCl (Promethazine HCl) 50 Mg Supp.rect, 50 MG RC Q8H Prescribed by: TRISTEN LANDRY on 11/29/19 1555 Propranolol HCl (Propranolol HCl) 20 Mg Tablet, (Reported) Entered as Reported by: PARESH KNOTT on 08/22/18 1024 Venlafaxine HCl (Venlafaxine HCl ER) 150 Mg Cap.er.24h, (Reported) Entered as Reported by: PARESH KNOTT on 08/22/18 1024 Zolpidem Tartrate (Zolpidem Tartrate) 5 Mg Tablet, (Reported) Entered as Reported by: PARESH KNOTT on 08/22/18 1024 Review of Systems Review of Systems Constitutional: see HPI Eyes: See HPI Ears, Nose, Mouth, Throat: no symptoms reported Respiratory: no symptoms reported Cardiovascular: no symptoms reported Gastrointestinal: see HPI Genitourinary: no symptoms reported : No Musculoskeletal: no symptoms reported Skin: no symptoms reported Psychiatric/Neurological: See HPI All Other Systems Reviewed Negative Unless Noted: Yes Past Qyxdhbp-Gbcbqk-Xcdsrn Hx Patient Social History Tobacco Use?: No Use of E-Cig and/or Vaping dev: No Substance use?: No Alcohol Use?: No Pt feels they are or have been: No Immunizations Up To Date First/Initial COVID19 Vaccinat: up to date Second COVID19 Vaccination Francis: up to date Third COVID19 Vaccination Date: up to date Seasonal Allergies Seasonal Allergies: No Past Medical History 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, 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 Surgeries: Yes 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 Respiratory: No Cardiac: No Neurological: Yes 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 oz. 70.684097eu; 23.00 BMI Method:Stated General Appearance: WD/WN, mild distress HEENT: PERRL/EOMI, normal ENT inspection Neck: non-tender, full range of motion Cardiovascular: regular rate, rhythm, no edema, no gallop Respiratory: chest non-tender, lungs clear, normal breath sounds, no respiratory distress Back: normal inspection Extremities: normal range of motion Psychiatric: alert, oriented x 3 Crainal Nerves: normal hearing, normal speech, PERRL Motor/Sensory: no motor deficit, no sensory deficit Progress/Results/Core Measures Results/Orders My Orders Orders - URBANO NICOLE MD Ketorolac Injection (Toradol Injection) (01/11/22 01:30) Diphenhydramine Injection (Benadryl Inje (01/11/22 01:30) Promethazine Injection (Phenergan Injec (01/11/22 01:30) Medications Given in ED Current Medications Medications Dose Ordered Sig/Shell Route Start Time Stop Time Status Last Admin Dose Admin Diphenhydramine HCl 25 mg ONCE ONCE IM 01/11/22 01:30 01/11/22 01:30 DC 01/11/22 01:25 25 MG Ketorolac Tromethamine 60 mg ONCE ONCE IM 01/11/22 01:30 01/11/22 01:30 DC 01/11/22 01:25 60 MG Promethazine HCl 25 mg ONCE ONCE IM 01/11/22 01:30 01/11/22 01:30 DC 01/11/22 01:25 25 MG Vital Signs/I&O 01/11/22 01/11/22 01:05 01:30 Temp 36.9 36.9 Pulse 86 86 Resp 16 16 B/P (MAP) 139/73 (95) 139/73 Pulse Ox 99 99 O2 Delivery Room Air Room Air Blood Pressure Mean: 95 Progress Progress Note : Progress Note Evaluation of patient and nursing 42-year-old female patient with history of migraine headache and frequent ER visit with requesting Toradol, Benadryl, Phenergan IM. Patient had unremarkable physical exam. Patient had Toradol, Phenergan and Benadryl. Patient advised to take her home medication and follow- up with her primary care physician/neurologist. Departure Impression Primary Impression: Migraine Qualified Codes: G43.009 - Migraine without aura, not intractable, without status migrainosus Disposition: 01 HOME, SELF-CARE Condition: Improved Departure-Patient Inst. Decision time for Depature: 01:30 Referrals: SABINA VELOZ MD (PCP/Family) Primary Care Physician Patient Instructions: Migraines (DC) Add. Discharge Instructions: Continue current medication Follow-up with your primary care physician or neurologist as needed Return to ER as needed All discharge instructions reviewed with patient and/or family. Voiced understanding. URBANO NICOLE MD Jan 11, 2022 01:26
[2022-01-11 01:30] VITALS: BP 139/73
[2022-01-11] MEDS ORDERED: PROMETHAZINE INJ 25 MG/ML (PHENERGAN) AMP IM ONE (01:30)
[2022-01-11] MEDS ORDERED: KETOROLAC 60 MG/2 ML VIAL IM ONE (01:30)
[2022-01-11] MEDS ORDERED: diphenhydrAMINE 50 MG/ML INJ (BENADRYL) IM ONE (01:30)
== END 2022-01-11 01:29 | disposition home or self-care (01) ==
LOC: EDUNIT# 01:00 → ER FS 01:03
DX: G43.909 Migraine, unspecified, not intractable, without status migrainosus (principal); Z28.310 Unvaccinated for COVID-19
CPT/HCPCS: 99284

== ENCOUNTER 2022-01-26 00:23 | Emergency (ER) | payer MEDICARE ==
[~2022-01-26] VITALS: Ht 170 cm; Wt 68.0 kg
[2022-01-26 00:55] VITALS: BP 138/70
--- NOTE | 2022-01-26 05:05 | ED Headache ---
General Chief Complaint: Head/Cervical Problems Stated Complaint: MIGRAINE Nursing Triage Note: Pt c/o "migraine" headache since yesterday. Reports hx migraines and no relief from home medications. Denies new symptoms. History of Present Illness Date Seen by Provider: Jan 26, 2022 Time Seen by Provider: 00:35 Initial Comments 40-year-old female with past medical history of chronic migraine headaches coming in due to her typical headache. This was started earlier tonight. Denies any fever, neck stiffness, vision changes, weakness, numbness, or any other concerns. She says she came in for her typical medication cocktail to help her feel better. Allergies and Home Medications Allergies Coded Allergies: Sulfa (Sulfonamide Antibiotics) (Verified Allergy, Mild, Itching, 03/14/19) cefuroxime (Verified Allergy, Unknown, 08/21/18) haloperidol (Verified Allergy, Unknown, 10/31/18) magnesium (Verified Allergy, Unknown, 08/21/18) prochlorperazine (Verified Allergy, Unknown, rash, 08/21/18) topiramate (Verified Allergy, Unknown, 08/21/18) tramadol (Verified Allergy, Unknown, 10/31/18) Uncoded Allergies: DHE (Allergy, Unknown, 10/31/18) Patient Home Medication List Home Medication List Reviewed: Yes Bupropion HCl (Bupropion HCl Sr) 150 Mg Tablet.er, (Reported) Entered as Reported by: PARESH KNOTT on 08/22/18 1024 Butalbital/Aspirin/Caffeine (Fiorinal 50-325-40 mg Capsule) 1 Each Capsule, 1 EACH PO TID PRN for Headache Prescribed by: MELANIE CLAYTON on 09/02/19 1856 Butorphanol Tartrate (Butorphanol Tartrate) 25 Mg [place], (Reported) Entered as Reported by: PARESH KNOTT on 08/22/18 1024 Levothyroxine Sodium (Synthroid) 50 Mcg Tablet, (Reported) Entered as Reported by: PARESH KNOTT on 08/22/18 1024 Levothyroxine Sodium (Synthroid) 200 Mcg Tablet, (Reported) Entered as Reported by: PARESH KNOTT on 08/22/18 1024 Lorazepam (Lorazepam) 1 Mg Tablet, (Reported) Entered as Reported by: PARESH KNOTT on 08/22/18 1024 Promethazine HCl (Promethazine HCl) 50 Mg Supp.rect, 50 MG RC Q8H Prescribed by: TRSITEN LANDRY on 11/29/19 1555 Propranolol HCl (Propranolol HCl) 20 Mg Tablet, (Reported) Entered as Reported by: PARESH KNOTT on 08/22/18 1024 Venlafaxine HCl (Venlafaxine HCl ER) 150 Mg Cap.er.24h, (Reported) Entered as Reported by: PARESH KNOTT on 08/22/18 1024 Zolpidem Tartrate (Zolpidem Tartrate) 5 Mg Tablet, (Reported) Entered as Reported by: PARESH KNOTT on 08/22/18 1024 Review of Systems Review of Systems Constitutional: No fever Eyes: Denies Blurred Vision Ears, Nose, Mouth, Throat: no symptoms reported Respiratory: no symptoms reported Cardiovascular: no symptoms reported Gastrointestinal: no symptoms reported Genitourinary: no symptoms reported Musculoskeletal: no symptoms reported Skin: no symptoms reported Psychiatric/Neurological: Headache All Other Systems Reviewed Negative Unless Noted: Yes Past Ayanpwo-Xlbmap-Ahiolm Hx Patient Social History Tobacco Use?: No Use of E-Cig and/or Vaping dev: No Substance use?: No Alcohol Use?: No Pt feels they are or have been: No Immunizations Up To Date First/Initial COVID19 Vaccinat: up to date Second COVID19 Vaccination Francis: up to date Third COVID19 Vaccination Date: up to date Seasonal Allergies Seasonal Allergies: No Past Medical History 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, 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 Surgeries: Yes 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 Respiratory: No Cardiac: No Neurological: Yes 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 oz. [id number]; 23.00 BMI Method:Stated General Appearance: WD/WN, no apparent distress HEENT: PERRL/EOMI, normal ENT inspection, pharynx normal Neck: non-tender, full range of motion, supple, normal inspection Cardiovascular: regular rate, rhythm, no edema, no murmur Respiratory: chest non-tender, lungs clear, normal breath sounds, no respiratory distress, no accessory muscle use Gastrointestinal: normal bowel sounds, non tender, soft; No distended, No g uarding, No rebound Back: normal inspection, no CVA tenderness Extremities: normal range of motion, non-tender, normal inspection, no pedal edema, no calf tenderness, normal capillary refill Psychiatric: alert, oriented x 3 Crainal Nerves: normal hearing, normal speech, PERRL Coordination/Gait: normal finger to nose, normal gait Motor/Sensory: no motor deficit, no sensory deficit Skin: normal color, warm/dry Lymphatic: no adenopathy Progress/Results/Core Measures Results/Orders Vital Signs/I&O 01/26/22 01/26/22 00:23 00:55 Temp 36.6 36.6 Pulse 108 108 Resp 17 17 B/P (MAP) 138/70 (92) 138/70 Pulse Ox 100 100 O2 Delivery Room Air Room Air Blood Pressure Mean: 92 Progress Progress Note : Progress Note 40-year-old female with above history coming in due to headache. ABCs were intact and vitals were stable on presentation. Physical exam reassuring including a normal neurologic exam. She was given IM Phenergan, Benadryl, and Toradol. Discharged afterwards in stable condition with strict return precautions. Departure Impression Primary Impression: Headache Qualified Codes: G44.209 - Tension-type headache, unspecified, not intractable Disposition: 01 HOME, SELF-CARE Condition: Stable Departure-Patient Inst. Decision time for Depature: 00:51 Referrals: SABINA VELOZ MD (PCP) Primary Care Physician Patient Instructions: Headache, Adult ED LITA DE SANTIAGO MD Jan 26, 2022 05:05
== END 2022-01-26 03:00 | disposition home or self-care (01) ==
LOC: EDUNIT# 02:15 → ER FS 02:28
DX: R51.9 Headache, unspecified (principal); Z86.69 Personal history of other diseases of the nervous system and sense organs
CPT/HCPCS: 99284

== ENCOUNTER 2022-02-17 00:11 | Emergency (ER) | payer MEDICARE ==
--- NOTE | 2022-02-17 00:19 | ED Headache ---
General Stated Complaint: HEADACHE History of Present Illness Date Seen by Provider: Feb 17, 2022 Time Seen by Provider: 00:19 Initial Comments 41-year-old female with chronic migraine and frequent ER visits. Presents with her typical migraine with nausea that started yesterday. Patient states that she has an appointment with her neurologist tomorrow [place]. Patient presents requesting Toradol Phenergan and Benadryl which is what she requested upon every ER visit. Patient has no focal deficits, fever chills or other sick symptoms outside of her common migraine symptoms. Allergies and Home Medications Allergies Coded Allergies: Sulfa (Sulfonamide Antibiotics) (Verified Allergy, Mild, Itching, 03/14/19) cefuroxime (Verified Allergy, Unknown, 08/21/18) haloperidol (Verified Allergy, Unknown, 10/31/18) magnesium (Verified Allergy, Unknown, 08/21/18) prochlorperazine (Verified Allergy, Unknown, rash, 08/21/18) topiramate (Verified Allergy, Unknown, 08/21/18) tramadol (Verified Allergy, Unknown, 10/31/18) Uncoded Allergies: DHE (Allergy, Unknown, 10/31/18) Patient Home Medication List Home Medication List Reviewed: Yes Bupropion HCl (Bupropion HCl Sr) 150 Mg Tablet.er, (Reported) Entered as Reported by: PARESH KNOTT on 08/22/18 1024 Butalbital/Aspirin/Caffeine (Fiorinal 50-325-40 mg Capsule) 1 Each Capsule, 1 EACH PO TID PRN for Headache Prescribed by: MELANIE CLAYTON on 09/02/19 185 Butorphanol Tartrate (Butorphanol Tartrate) 25 Mg [place], (Reported) Entered as Reported by: PARESH KNOTT on 08/22/18 1024 Levothyroxine Sodium (Synthroid) 50 Mcg Tablet, (Reported) Entered as Reported by: PARESH KNOTT on 08/22/18 1024 Levothyroxine Sodium (Synthroid) 200 Mcg Tablet, (Reported) Entered as Reported by: PARESH KNOTT on 08/22/18 1024 Lorazepam (Lorazepam) 1 Mg Tablet, (Reported) Entered as Reported by: PARESH KNOTT on 08/22/18 1024 Promethazine HCl (Promethazine HCl) 50 Mg Supp.rect, 50 MG RC Q8H Prescribed by: TRISTEN LANDRY on 11/29/19 1555 Propranolol HCl (Propranolol HCl) 20 Mg Tablet, (Reported) Entered as Reported by: PARESH KNOTT on 08/22/18 1024 Venlafaxine HCl (Venlafaxine HCl ER) 150 Mg Cap.er.24h, (Reported) Entered as Reported by: PARESH KNOTT on 08/22/18 1024 Zolpidem Tartrate (Zolpidem Tartrate) 5 Mg Tablet, (Reported) Entered as Reported by: PARESH KNOTT on 08/22/18 1024 Review of Systems Review of Systems Constitutional: No chills, No fever Eyes: Photophobia Ears, Nose, Mouth, Throat: no symptoms reported Respiratory: no symptoms reported Cardiovascular: no symptoms reported Gastrointestinal: no symptoms reported Musculoskeletal: no symptoms reported Skin: no symptoms reported Psychiatric/Neurological: Headache Past Kgqwnll-Jaxowg-Ebwziw Hx Immunizations Up To Date First/Initial COVID19 Vaccinat: up to date Second COVID19 Vaccination Francis: up to date Third COVID19 Vaccination Date: up to date Seasonal Allergies Seasonal Allergies: No Past Medical History 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, 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 Surgeries: Yes 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 Respiratory: No Cardiac: No 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 oz. 70.561178sv; 23.00 BMI Method:Stated General Appearance: WD/WN Cardiovascular: normal peripheral pulses, regular rate, rhythm Respiratory: lungs clear, normal breath sounds Gastrointestinal: non tender, soft Extremities: normal range of motion, non-tender Psychiatric: alert, oriented x 3 Coordination/Gait: normal gait Motor/Sensory: no motor deficit, no sensory deficit Skin: normal color, warm/dry Progress/Results/Core Measures Results/Orders My Orders Orders - LITZY WHEELER DO Ketorolac Injection (Toradol Injection) (02/17/22 00:23) Promethazine Injection (Phenergan Injec (02/17/22 00:23) Diphenhydramine Injection (Benadryl Inje (02/17/22 00:23) Vital Signs/I&O 02/17/22 02/17/22 00:15 00:37 Temp 36.8 36.8 Pulse 120 120 Resp 18 18 B/P (MAP) 122/76 (91) 122/76 Pulse Ox 100 100 O2 Delivery Room Air Room Air Progress Progress Note : Progress Note Patient with her chronic headache. Patient given 15 mg IM Toradol along with Phenergan and Benadryl. Patient always request 30 mg of Toradol. I discussed with her that based on current recommendations 15 mg is shown to have the same pain efficiency as 30 mg and I do not prescribe greater than15 mg Toradol since then her risk profile increases especially with her chronic ER visits and use. Patient discharged home following her injections. Departure Impression Primary Impression: Chronic headaches Qualified Codes: R51.9 - Headache, unspecified; G89.29 - Other chronic pain Disposition: HOME, SELF-CARE Condition: Stable Departure-Patient Inst. Referrals: SABINA VELOZ MD (PCP/Family) Primary Care Physician Patient Instructions: Migraines (DC), Headache, Adult (DC) Add. Discharge Instructions: Please keep your appointment with your neurologist tomorrow LITZY WHEELER DO Feb 17, 2022 00:19
[2022-02-17] MEDS ORDERED: diphenhydrAMINE 50 MG/ML INJ (BENADRYL) IM STA (00:23)
[2022-02-17] MEDS ORDERED: KETOROLAC 30 MG/ML VIAL IM STA (00:23)
[2022-02-17] MEDS ORDERED: PROMETHAZINE INJ 25 MG/ML (PHENERGAN) AMP IM STA (00:23)
[2022-02-17 00:37] VITALS: BP 122/76
== END 2022-02-17 00:43 | disposition home or self-care (01) ==
LOC: EDUNIT# 00:11 → ER FS 00:13
DX: G89.29 Other chronic pain (principal); R51.9 Headache, unspecified; Z88.5 Allergy status to narcotic agent; Z28.310 Unvaccinated for COVID-19
CPT/HCPCS: 99284

== ENCOUNTER 2022-02-21 03:29 | Emergency (ER) | payer MEDICARE ==
--- NOTE | 2022-02-21 03:41 | ED Headache ---
General Chief Complaint: Head/Cervical Problems Stated Complaint: HEADACHE Source: patient Exam Limitations: no limitations History of Present Illness Date Seen by Provider: Feb 21, 2022 Time Seen by Provider: 03:42 Initial Comments 41-year-old female with a history of chronic migraines who receives Botox from her neurologist presents with a chief complaint of severe migraine that is right-sided onset during the night while sleeping. She states the features of this headache are no different than her usual migraines. She does however complain of "injection site pain" where she had her Botox earlier today. She states it is quite routine for her to develop a migraine after her Botox injections. She did take a medication provided by her neurologist today for migraines but it did not help. She is nauseous. She complains of a little padmini rry vision which is not unusual. No unilateral numbness, weakness. She does have some paresthesias which is chronic with her migraines. No chest pain, shortness of breath. No abdominal pain. No problems with bowel or bladder. She has had frequent visits to the emergency department for rescue of her migraines. She requests Toradol, Phenergan and Benadryl All other review of systems reviewed and negative except as stated. Timing/Duration: 4-6 hours Severity/Quality: severe, achy Location: temporal (right) Prior Headaches/Recent Trauma: chronic headaches Modifying Factors: worse with exposure to light, worse with movement Associated Symptoms: facial pain, nausea/vomiting, other (injection site pain from botox) Allergies and Home Medications Allergies Coded Allergies: Sulfa (Sulfonamide Antibiotics) (Verified Allergy, Mild, Itching, 03/14/19) cefuroxime (Verified Allergy, Unknown, 08/21/18) haloperidol (Verified Allergy, Unknown, 10/31/18) magnesium (Verified Allergy, Unknown, 08/21/18) prochlorperazine (Verified Allergy, Unknown, rash, 08/21/18) topiramate (Verified Allergy, Unknown, 08/21/18) tramadol (Verified Allergy, Unknown, 10/31/18) Uncoded Allergies: DHE (Allergy, Unknown, 10/31/18) Patient Home Medication List Home Medication List Reviewed: Yes Bupropion HCl (Bupropion HCl Sr) 150 Mg Tablet.er, (Reported) Entered as Reported by: PARESH KNOTT on 08/22/18 1024 Butalbital/Aspirin/Caffeine (Fiorinal 50-325-40 mg Capsule) 1 Each Capsule, 1 EACH PO TID PRN for Headache Prescribed by: MELANIE CLAYTON on 09/02/19 1856 Butorphanol Tartrate (Butorphanol Tartrate) 25 Mg [place], (Reported) Entered as Reported by: PARESH KNOTT on 08/22/18 1024 Levothyroxine Sodium (Synthroid) 50 Mcg Tablet, (Reported) Entered as Reported by: PARESH KNOTT on 08/22/18 1024 Levothyroxine Sodium (Synthroid) 200 Mcg Tablet, (Reported) Entered as Reported by: PARESH KNOTT on 08/22/18 1024 Lorazepam (Lorazepam) 1 Mg Tablet, (Reported) Entered as Reported by: PARESH KNOTT on 08/22/18 1024 Promethazine HCl (Promethazine HCl) 50 Mg Supp.rect, 50 MG RC Q8H Prescribed by: TRISTEN LANDRY on 11/29/19 1555 Propranolol HCl (Propranolol HCl) 20 Mg Tablet, (Reported) Entered as Reported by: PARESH KNOTT on 08/22/18 1024 Venlafaxine HCl (Venlafaxine HCl ER) 150 Mg Cap.er.24h, (Reported) Entered as Reported by: PARESH KNOTT on 08/22/18 1024 Zolpidem Tartrate (Zolpidem Tartrate) 5 Mg Tablet, (Reported) Entered as Reported by: PARESH KNOTT on 08/22/18 1024 Review of Systems Review of Systems Constitutional: see HPI Eyes: No Symptoms Reported Ears, Nose, Mouth, Throat: no symptoms reported Respiratory: no symptoms reported Cardiovascular: no symptoms reported Gastrointestinal: nausea Genitourinary: no symptoms reported Musculoskeletal: joint pain (head and neck) Skin: no symptoms reported Psychiatric/Neurological: Headache, Paresthesia All Other Systems Reviewed Negative Unless Noted: Yes Past Rkbpzhh-Bqeyis-Tukmnz Hx Patient Social History Tobacco Use?: No Use of E-Cig and/or Vaping dev: No Substance use?: No Alcohol Use?: No Pt feels they are or have been: No Immunizations Up To Date First/Initial COVID19 Vaccinat: up to date Second COVID19 Vaccination Francis: up to date Third COVID19 Vaccination Date: up to date Seasonal Allergies Seasonal Allergies: No Past Medical History 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, 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 Surgeries: Yes 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 Respiratory: No Cardiac: No 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 oz. 70.666603vh; 23.00 BMI Method:Stated General Appearance: WD/WN, mild distress HEENT: PERRL/EOMI Neck: supple, normal inspection Cardiovascular: regular rate, rhythm Respiratory: lungs clear, normal breath sounds, no respiratory distress, no accessory muscle use Gastrointestinal: non tender, soft Extremities: normal range of motion, normal inspection Psychiatric: alert, oriented x 3 Crainal Nerves: normal hearing, normal speech, PERRL Coordination/Gait: normal gait Motor/Sensory: no motor deficit Skin: normal color, warm/dry Progress/Results/Core Measures Results/Orders My Orders Orders - CANDIS GIL MD Ketorolac Injection (Toradol Injection) (02/21/22 04:15) Diphenhydramine Injection (Benadryl Inje (02/21/22 04:15) Promethazine Injection (Phenergan Injec (02/21/22 04:15) Vital Signs/I&O 02/21/22 03:33 Temp 36.0 Pulse 95 Resp 18 B/P (MAP) 137/83 (101) Pulse Ox 99 O2 Delivery Room Air Departure Impression Primary Impression: Acute migraine Additional Impression: Chronic headache without new features Disposition: 01 HOME, SELF-CARE Condition: Stable Departure-Patient Inst. Decision time for Depature: 04:04 Referrals: SABINA VELOZ MD (PCP/Family) Primary Care Physician Patient Instructions: Migraines (DC) Add. Discharge Instructions: Drink plenty of fluids to stay well-hydrated. Continue your new medications as prescribed by your primary care provider as well as neurologist. Return to the emergency department for any new, concerning or emergent complaints/symptoms CANDIS GIL MD Feb 21, 2022 03:41
[2022-02-21] MEDS ORDERED: KETOROLAC 30 MG/ML VIAL IM ONE (04:15)
[2022-02-21] MEDS ORDERED: diphenhydrAMINE 50 MG/ML INJ (BENADRYL) IM ONE (04:15)
[2022-02-21] MEDS ORDERED: PROMETHAZINE INJ 25 MG/ML (PHENERGAN) AMP IM ONE (04:15)
[2022-02-21 04:19] VITALS: BP 137/83
== END 2022-02-21 04:19 | disposition home or self-care (01) ==
LOC: EDUNIT# 03:29 → ER FS 03:32
DX: G43.809 Other migraine, not intractable, without status migrainosus (principal); Z88.5 Allergy status to narcotic agent
CPT/HCPCS: 99284

== ENCOUNTER 2022-03-12 04:41 | Emergency (ER) | payer MEDICARE ==
[2022-03-12 04:43] VITALS: BP 137/89
--- NOTE | 2022-03-12 04:57 | ED Headache ---
General Chief Complaint: Head/Cervical Problems Stated Complaint: HEADACHE Nursing Triage Note: pt reports h/a x2days. reports she has taken her home medications without relief Source: patient History of Present Illness Date Seen by Provider: Mar 12, 2022 Time Seen by Provider: 04:47 Initial Comments 41-year-old female with past medical history of chronic migraines coming in due to concerns for migraine headache. This morning started 2 days ago, slow onset, right side of her head which is typical for her. Denies any fever, weakness, numbness, neck stiffness, or any other concerns. Has tried her home medications to no avail. Recently had the Botox injections at the end of January. Allergies and Home Medications Allergies Coded Allergies: Sulfa (Sulfonamide Antibiotics) (Verified Allergy, Mild, Itching, 03/14/19) cefuroxime (Verified Allergy, Unknown, 08/21/18) haloperidol (Verified Allergy, Unknown, 10/31/18) magnesium (Verified Allergy, Unknown, 08/21/18) prochlorperazine (Verified Allergy, Unknown, rash, 08/21/18) topiramate (Verified Allergy, Unknown, 08/21/18) tramadol (Verified Allergy, Unknown, 10/31/18) Uncoded Allergies: DHE (Allergy, Unknown, 10/31/18) Patient Home Medication List Home Medication List Reviewed: Yes Bupropion HCl (Bupropion HCl Sr) 150 Mg Tablet.er, (Reported) Entered as Reported by: PARESH KNOTT on 08/22/18 1024 Butalbital/Aspirin/Caffeine (Fiorinal 50-325-40 mg Capsule) 1 Each Capsule, 1 EACH PO TID PRN for Headache Prescribed by: MELANIE CLAYTON on 09/02/19 1856 Butorphanol Tartrate (Butorphanol Tartrate) 25 Mg [place], (Reported) Entered as Reported by: PARESH KNOTT on 08/22/18 1024 Levothyroxine Sodium (Synthroid) 50 Mcg Tablet, (Reported) Entered as Reported by: PARESH KNOTT on 08/22/18 1024 Levothyroxine Sodium (Synthroid) 200 Mcg Tablet, (Reported) Entered as Reported by: PARESH KNOTT on 08/22/18 1024 Lorazepam (Lorazepam) 1 Mg Tablet, (Reported) Entered as Reported by: PARESH KNOTT on 08/22/18 1024 Promethazine HCl (Promethazine HCl) 50 Mg Supp.rect, 50 MG RC Q8H Prescribed by: TRISTEN LANDRY on 11/29/19 1555 Propranolol HCl (Propranolol HCl) 20 Mg Tablet, (Reported) Entered as Reported by: PARESH KNOTT on 08/22/18 1024 Venlafaxine HCl (Venlafaxine HCl ER) 150 Mg Cap.er.24h, (Reported) Entered as Reported by: PARESH KNOTT on 08/22/18 1024 Zolpidem Tartrate (Zolpidem Tartrate) 5 Mg Tablet, (Reported) Entered as Reported by: PARESH KNOTT on 08/22/18 1024 Review of Systems Review of Systems Constitutional: No fever Eyes: Denies Blurred Vision Ears, Nose, Mouth, Throat: no symptoms reported Respiratory: no symptoms reported Cardiovascular: no symptoms reported Gastrointestinal: no symptoms reported Genitourinary: no symptoms reported Musculoskeletal: no symptoms reported Skin: no symptoms reported Psychiatric/Neurological: See HPI All Other Systems Reviewed Negative Unless Noted: Yes Past Nrjyoyb-Dpwqwl-Xfgzlz Hx Patient Social History Tobacco Use?: No Substance use?: No Alcohol Use?: No Immunizations Up To Date First/Initial COVID19 Vaccinat: up to date Second COVID19 Vaccination Francis: up to date Third COVID19 Vaccination Date: up to date Seasonal Allergies Seasonal Allergies: No Past Medical History 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, 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 Surgeries: Yes 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 Respiratory: No Cardiac: No Neurological: Yes 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 oz. 70.753636he; 23.00 BMI Method:Stated General Appearance: WD/WN, no apparent distress HEENT: PERRL/EOMI, normal ENT inspection, pharynx normal Neck: non-tender, full range of motion, supple, normal inspection Cardiovascular: regular rate, rhythm, no edema, no murmur Respiratory: chest non-tender, lungs clear, normal breath sounds, no respiratory distress, no accessory muscle use Gastrointestinal: normal bowel sounds, non tender, soft; No distended, No guarding, No rebound Back: normal inspection Extremities: normal range of motion, non-tender, normal inspection, no pedal edema, no calf tenderness, normal capillary refill Psychiatric: alert, oriented x 3 Crainal Nerves: normal hearing, normal speech, PERRL Coordination/Gait: normal gait Motor/Sensory: no motor deficit, no sensory deficit Skin: normal color, warm/dry Lymphatic: no adenopathy Progress/Results/Core Measures Results/Orders My Orders Orders - LITA DE SANTIAGO MD Promethazine Injection (Phenergan Injec (03/12/22 05:00) Diphenhydramine Injection (Benadryl Inje (03/12/22 05:00) Ketorolac Injection (Toradol Injection) (03/12/22 05:00) Vital Signs/I&O 03/12/22 04:43 Pulse 109 Resp 18 B/P (MAP) 137/89 (105) Pulse Ox 98 Blood Pressure Mean: 105 Progress Progress Note : Progress Note 41-year-old female with above history coming in for her typical headache. ABCs were intact, vital stable, GCS 15, neuro exam normal. Given IM Toradol, Phenergan, Benadryl. Discharged home in stable condition Departure Impression Primary Impression: Migraine headache with aura Qualified Codes: G43.101 - Migraine with aura, not intractable, with status migrainosus Disposition: 01 HOME, SELF-CARE Condition: Stable Departure-Patient Inst. Decision time for Depature: 05:10 Referrals: SABINA VELOZ MD (PCP/Family) Primary Care Physician Patient Instructions: Headache, Adult (DC) Add. Discharge Instructions: Drink plenty of fluids to stay well-hydrated. Continue your new medications as prescribed by your primary care provider as well as neurologist. Return to the emergency department for any new, concerning or emergent complaints/symptoms Work/School Note: Work Release Form Date Seen in the Emergency Department: Mar 12, 2022 Return to Work: Mar 13, 2022 Restrictions: No Restrictions LITA DE SANTIAGO MD Mar 12, 2022 04:57
[2022-03-12] MEDS ORDERED: KETOROLAC 30 MG/ML VIAL IVP ONE (05:00)
[2022-03-12] MEDS ORDERED: PROMETHAZINE INJ 25 MG/ML (PHENERGAN) AMP IM ONE (05:00)
[2022-03-12] MEDS ORDERED: diphenhydrAMINE 50 MG/ML INJ (BENADRYL) IM ONE (05:00)
== END 2022-03-12 05:07 | disposition home or self-care (01) ==
LOC: EDUNIT# 04:41 → ER FS 04:44
DX: G43.109 Migraine with aura, not intractable, without status migrainosus (principal)
CPT/HCPCS: 99284

== ENCOUNTER 2022-03-18 13:18 | Emergency (ER) | payer MEDICARE ==
[~2022-03-18] VITALS: Ht 170 cm; Wt 68.0 kg
[2022-03-18 13:24] VITALS: BP 109/61
[2022-03-18] MEDS ORDERED: KETOROLAC 30 MG/ML VIAL IM ONE (13:30)
[2022-03-18] MEDS ORDERED: diphenhydrAMINE 50 MG/ML INJ (BENADRYL) IM ONE (13:30)
[2022-03-18] MEDS ORDERED: PROMETHAZINE INJ 25 MG/ML (PHENERGAN) AMP IM ONE (13:30)
[2022-03-18] MEDS ORDERED: PROM25TA14 PO (13:46)
--- NOTE | 2022-03-18 13:46 | ED Headache ---
General Chief Complaint: Head/Cervical Problems Stated Complaint: HEADACHE Nursing Triage Note: Patient has presented to ER with cc of a headache, nausea, and vomiting for the last 3 days. She did take excedrin migraine yesterday but she has not taken anything for the pain today. She has presented to ER for evaluation. Source: patient Exam Limitations: no limitations History of Present Illness Date Seen by Provider: Mar 18, 2022 Time Seen by Provider: 13:23 Initial Comments 41-year-old female with chronic headaches coming in due to headache. This most recent episode started a couple days ago. She has had some congestion at home and believes she got sick from her son. Did a home COVID test which was negative. Denies any unusual symptoms such as fever, vision changes, focal weakness or numbness, neck stiffness, or any other concerns. She says this feels like her typical headache. She tried her home medications which have not helped as of yet. Allergies and Home Medications Allergies Coded Allergies: Sulfa (Sulfonamide Antibiotics) (Verified Allergy, Mild, Itching, 03/14/19) cefuroxime (Verified Allergy, Unknown, 08/21/18) haloperidol (Verified Allergy, Unknown, 10/31/18) magnesium (Verified Allergy, Unknown, 08/21/18) prochlorperazine (Verified Allergy, Unknown, rash, 08/21/18) topiramate (Verified Allergy, Unknown, 08/21/18) tramadol (Verified Allergy, Unknown, 10/31/18) Uncoded Allergies: DHE (Allergy, Unknown, 10/31/18) Patient Home Medication List Home Medication List Reviewed: Yes Bupropion HCl (Bupropion HCl Sr) 150 Mg Tablet.er, (Reported) Entered as Reported by: PARESH KNOTT on 08/22/18 1024 Butalbital/Aspirin/Caffeine (Fiorinal 50-325-40 mg Capsule) 1 Each Capsule, 1 EACH PO TID PRN for Headache Prescribed by: MELANIE CLAYTON on 09/02/191855 Butorphanol Tartrate (Butorphanol Tartrate) 25 Mg Ronald, (Reported) Entered as Reported by: PARESH KNOTT on 08/22/18 1024 Levothyroxine Sodium (Synthroid) 50 Mcg Tablet, (Reported) Entered as Reported by: PARESH KNOTT on 08/22/18 1024 Levothyroxine Sodium (Synthroid) 200 Mcg Tablet, (Reported) Entered as Reported by: PARESH KNOTT on 08/22/18 1024 Lorazepam (Lorazepam) 1 Mg Tablet, (Reported) Entered as Reported by: PARESH KNOTT on 08/22/18 1024 Promethazine HCl (Promethazine HCl) 50 Mg Supp.rect, 50 MG RC Q8H Prescribed by: TRISTEN LANDRY on 11/29/19 1555 Propranolol HCl (Propranolol HCl) 20 Mg Tablet, (Reported) Entered as Reported by: PARESH KNOTT on 08/22/18 1024 Venlafaxine HCl (Venlafaxine HCl ER) 150 Mg Cap.er.24h, (Reported) Entered as Reported by: PARESH KNOTT on 08/22/18 1024 Zolpidem Tartrate (Zolpidem Tartrate) 5 Mg Tablet, (Reported) Entered as Reported by: PARESH KNOTT on 08/22/18 1024 Review of Systems Review of Systems Constitutional: No fever Eyes: Denies Blurred Vision Ears, Nose, Mouth, Throat: no symptoms reported Respiratory: no symptoms reported Cardiovascular: no symptoms reported Gastrointestinal: no symptoms reported Genitourinary: no symptoms reported Musculoskeletal: no symptoms reported Skin: no symptoms reported Psychiatric/Neurological: Anxiety, Headache All Other Systems Reviewed Negative Unless Noted: Yes Past Plbodde-Ymmico-Uxpkvv Hx Patient Social History Tobacco Use?: No Use of E-Cig and/or Vaping dev: No Substance use?: No Alcohol Use?: No Immunizations Up To Date First/Initial COVID19 Vaccinat: up to date Second COVID19 Vaccination Francis: up to date Third COVID19 Vaccination Date: up to date Seasonal Allergies Seasonal Allergies: No Past Medical History 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, 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 oz. 70.956042de; 23.00 BMI Method:Stated General Appearance: WD/WN, no apparent distress HEENT: PERRL/EOMI, normal ENT inspection, pharynx normal Neck: non-tender, full range of motion, supple, normal inspection Cardiovascular: regular rate, rhythm, no edema, no murmur Respiratory: chest non-tender, lungs clear, normal breath sounds, no respiratory distress, no accessory muscle use Gastrointestinal: normal bowel sounds, non tender, soft; No distended, No guarding, No rebound Back: normal inspection Extremities: normal range of motion, non-tender, normal inspection, no pedal edema, no calf tenderness, normal capillary refill Psychiatric: alert, oriented x 3 Crainal Nerves: normal hearing, normal speech, PERRL Coordination/Gait: normal gait Motor/Sensory: no motor deficit, no sensory deficit Skin: normal color, warm/dry Lymphatic: no adenopathy Progress/Results/Core Measures Results/Orders My Orders Orders - LITA DE SANTIAGO MD Promethazine Injection (Phenergan Injec (03/18/22 13:30) Diphenhydramine Injection (Benadryl Inje (03/18/22 13:30) Ketorolac Injection (Toradol Injection) (03/18/22 13:30) Medications Given in ED Current Medications Medications Dose Ordered Sig/Shell Route Start Time Stop Time Status Last Admin Dose Admin Diphenhydramine HCl 50 mg ONCE ONCE IM 03/18/22 13:30 03/18/22 13:31 DC 03/18/22 13:36 50 MG Ketorolac Tromethamine 15 mg ONCE ONCE IM 03/18/22 13:30 03/18/22 13:31 DC 03/18/22 13:37 15 MG Promethazine HCl 25 mg ONCE ONCE IM 03/18/22 13:30 03/18/22 13:31 DC 03/18/22 13:35 25 MG Vital Signs/I&O 03/18/22 13:24 Temp 36.3 Pulse 103 Resp 16 B/P (MAP) 109/61 (77) Pulse Ox 100 O2 Delivery Room Air Blood Pressure Mean: 77 Progress Progress Note : Progress Note 41-year-old female with above history coming in due to headache. ABCs were intact and vitals are stable on presentation. Physical exam with no concerns. She was given her typical IM injections that help with her headache. She has no red flags. She was then discharged home in stable condition with strict return precautions Departure Impression Primary Impression: Acute migraine Disposition: HOME, SELF-CARE Condition: Stable Departure-Patient Inst. Decision time for Depature: 13:44 Referrals: SABINA VELOZ MD (PCP) Primary Care Physician Patient Instructions: Migraines (DC) Add. Discharge Instructions: Continue to drink plenty of fluids and follow-up with your neurologist to see if they want to do any medication changes. Scripts Promethazine HCl (Promethazine Tablet) 25 Mg Tablet 25 MG PO Q6H PRN for headache/nausea for 5 Days, #20 TAB Prov: LITA DE SANTIAGO MD 03/18/22 Work/School Note: Work Release Form Date Seen in the Emergency Department: Mar 18, 2022 Return to Work: Mar 19, 2022 Restrictions: No Restrictions LITA DE SANTIAGO MD Mar 18, 2022 13:46
== END 2022-03-18 13:50 | disposition home or self-care (01) ==
LOC: EDUNIT# 13:18 → ER FS 13:19
DX: G43.809 Other migraine, not intractable, without status migrainosus (principal); Z86.69 Personal history of other diseases of the nervous system and sense organs; Z88.5 Allergy status to narcotic agent
CPT/HCPCS: 99284

== ENCOUNTER 2022-04-01 04:07 | Emergency (ER) | payer MEDICARE ==
[~2022-04-01] VITALS: Ht 170 cm; Wt 68.4 kg
[~2022-04-01 04:07] MED LIST changes: +PROM25TA14 PO
[2022-04-01] MEDS ORDERED: KETOROLAC 30 MG/ML VIAL IM ONE (04:30)
[2022-04-01] MEDS ORDERED: PROMETHAZINE INJ 25 MG/ML (PHENERGAN) AMP IM ONE (04:30)
[2022-04-01] MEDS ORDERED: diphenhydrAMINE 50 MG/ML INJ (BENADRYL) IM ONE (04:30)
--- NOTE | 2022-04-01 04:31 | ED Headache ---
General Chief Complaint: Head/Cervical Problems Stated Complaint: HEADACHE Nursing Triage Note: Pt presents with c/o migraine since last night. Pt c/o onset of vomiting at approx 1am. Pt took benadryl, excedrine and zofran at home without relief. Source: patient Exam Limitations: no limitations History of Present Illness Date Seen by Provider: Apr 01, 2022 Time Seen by Provider: 04:11 Initial Comments 41-year-old female with history of migraines coming in for what she states is a typical migraine. Started last night, have 1 episode of vomiting around 1 AM, tried her home medications without much help. The pain is on the left side of her head, constant, moderate to severe, throbbing, and feels like all of her previous migraines. Denies any new symptoms with it including any fever, neck stiffness, vision changes, weakness, numbness, chest pain, shortness of breath, or any other concerns. Allergies and Home Medications Allergies Coded Allergies: Sulfa (Sulfonamide Antibiotics) (Verified Allergy, Mild, Itching, 03/14/19) cefuroxime (Verified Allergy, Unknown, 08/21/18) haloperidol (Verified Allergy, Unknown, 10/31/18) magnesium (Verified Allergy, Unknown, 08/21/18) prochlorperazine (Verified Allergy, Unknown, rash, 08/21/18) topiramate (Verified Allergy, Unknown, 08/21/18) tramadol (Verified Allergy, Unknown, 10/31/18) Uncoded Allergies: DHE (Allergy, Unknown, 10/31/18) Patient Home Medication List Home Medication List Reviewed: Yes Bupropion HCl (Bupropion HCl Sr) 150 Mg Tablet.er, (Reported) Entered as Reported by: PARESH KNOTT on 08/22/18 1024 Butalbital/Aspirin/Caffeine (Fiorinal 50-325-40 mg Capsule) 1 Each Capsule, 1 EACH PO TID PRN for Headache Prescribed by: MELANIE CLAYTON on 09/02/191855 Butorphanol Tartrate (Butorphanol Tartrate) 25 Mg [place], (Reported) Entered as Reported by: PARESH KNOTT on 08/22/18 1024 Levothyroxine Sodium (Synthroid) 50 Mcg Tablet, (Reported) Entered as Reported by: PARESH KNOTT on 08/22/18 1024 Levothyroxine Sodium (Synthroid) 200 Mcg Tablet, (Reported) Entered as Reported by: PARESH KNOTT on 08/22/18 1024 Lorazepam (Lorazepam) 1 Mg Tablet, (Reported) Entered as Reported by: PARESH KNOTT on 08/22/18 1024 Promethazine HCl (Promethazine HCl) 50 Mg Supp.rect, 50 MG RC Q8H Prescribed by: TRISTEN LANDRY on 11/29/19 1555 Promethazine HCl (Promethazine Tablet) 25 Mg Tablet, 25 MG PO Q6H PRN for headache/nausea Prescribed by: LITA DE SANTIAGO on 03/18/22 1346 Propranolol HCl (Propranolol HCl) 20 Mg Tablet, (Reported) Entered as Reported by: PARESH KNOTT on 08/22/18 1024 Venlafaxine HCl (Venlafaxine HCl ER) 150 Mg Cap.er.24h, (Reported) Entered as Reported by: PARESH KNOTT on 08/22/18 1024 Zolpidem Tartrate (Zolpidem Tartrate) 5 Mg Tablet, (Reported) Entered as Reported by: PARESH KNOTT on 08/22/18 1024 Review of Systems Review of Systems Constitutional: No fever Eyes: No Symptoms Reported Ears, Nose, Mouth, Throat: no symptoms reported Respiratory: no symptoms reported Cardiovascular: no symptoms reported Gastrointestinal: no symptoms reported Genitourinary: no symptoms reported Musculoskeletal: no symptoms reported Skin: no symptoms reported Psychiatric/Neurological: See HPI All Other Systems Reviewed Negative Unless Noted: Yes Past Achcuvh-Dhlmmj-Edauwr Hx Patient Social History Tobacco Use?: No Immunizations Up To Date First/Initial COVID19 Vaccinat: up to date Second COVID19 Vaccination Francis: up to date Third COVID19 Vaccination Date: up to date Seasonal Allergies Seasonal Allergies: No Past Medical History 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, 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 oz. 70.375114cl; 23.00 BMI Method:Stated General Appearance: WD/WN, no apparent distress HEENT: PERRL/EOMI, normal ENT inspection, pharynx normal Neck: non-tender, full range of motion, supple, normal inspection Cardiovascular: regular rate, rhythm, no edema, no murmur Respiratory: chest non-tender, lungs clear, normal breath sounds, no respiratory distress, no accessory muscle use Gastrointestinal: normal bowel sounds, non tender, soft; No guarding Back: normal inspection Extremities: normal range of motion, non-tender, normal inspection, no pedal edema, no calf tenderness, normal capillary refill Psychiatric: alert, oriented x 3 Crainal Nerves: normal hearing, normal speech, PERRL Coordination/Gait: normal gait Motor/Sensory: no motor deficit, no sensory deficit Skin: normal color, warm/dry Lymphatic: no adenopathy Progress/Results/Core Measures Results/Orders My Orders Orders - LITA DE SANTIAGO MD Promethazine Injection (Phenergan Injec (04/01/22 04:30) Diphenhydramine Injection (Benadryl Inje (04/01/22 04:30) Ketorolac Injection (Toradol Injection) (04/01/22 04:30) Vital Signs/I&O 04/01/22 04:12 Temp 36.9 Pulse 87 Resp 12 B/P (MAP) 131/72 (91) Blood Pressure Mean: 91 Progress Progress Note : Progress Note Presented for her normal headache symptoms with no changes to her symptoms. ABCs and vital stable on presentation with normal neuro exam. She is not exhibiting any red flags at this time. Given IM injections for her headache and discharged home with follow-up for her neurologist Departure Impression Primary Impression: Migraine headache without aura Qualified Codes: G43.009 - Migraine without aura, not intractable, without status migrainosus Disposition: HOME, SELF-CARE Condition: Stable Departure-Patient Inst. Decision time for Depature: 04:35 Referrals: SABINA VELOZ MD (PCP/Family) Primary Care Physician Patient Instructions: Migraines (DC) Add. Discharge Instructions: Continue to follow-up with your neurologist as needed. Work/School Note: Work Release Form Date Seen in the Emergency Department: Apr 01, 2022 Return to Work: Apr 02, 2022 Restrictions: No Restrictions LITA DE SANTIAGO MD Apr 01, 2022 04:31
[2022-04-01 04:46] VITALS: BP 131/72
== END 2022-04-01 04:55 | disposition home or self-care (01) ==
LOC: EDUNIT# 04:07 → ER FS 04:09
DX: G43.009 Migraine without aura, not intractable, without status migrainosus (principal); Z88.5 Allergy status to narcotic agent
CPT/HCPCS: 99284

== ENCOUNTER 2022-04-14 04:33 | Emergency (ER) | payer MEDICARE ==
[~2022-04-14] VITALS: Ht 170.1 cm; Wt 70.7 kg
[2022-04-14 04:39] VITALS: BP 152/79
[2022-04-14] MEDS ORDERED: PROMETHAZINE INJ 25 MG/ML (PHENERGAN) AMP IM STA (04:53)
[2022-04-14] MEDS ORDERED: diphenhydrAMINE 50 MG/ML INJ (BENADRYL) IM STA (04:53)
[2022-04-14] MEDS ORDERED: LORazepam 0.5 MG (ATIVAN) TABLET PO STA (04:53)
[2022-04-14] MEDS ORDERED: KETOROLAC 60 MG/2 ML VIAL IM STA (04:53)
--- NOTE | 2022-04-14 04:57 | ED Headache ---
General Chief Complaint: Head/Cervical Problems Stated Complaint: HEADACHE Nursing Triage Note: Patient presents to the ER complaining of a migraine. Patient reports this migraine starting late Sunday night. Source: patient History of Present Illness Date Seen by Provider: Apr 14, 2022 Time Seen by Provider: 04:40 Initial Comments 41 yo female presenting with complaint of migraine headache that feels like her typical migraine. She reports this started Sunday night and she had rested all day without improvement. She has tried her normal medications at home but has not had any relief of her symptoms and has been dry heaving. She has been getting more anxiety as well in the last few weeks and felt like her heart rate has been higher than n ormal according to her apple watch. She is following up with Neurology in next few weeks and plans to see Endocrinology for her thyroid and see if that is related to her anxiety and higher heart rate. She denies fever, chills, vision change, weakness in arms/legs, acute head injury. She has had a mild sore throat but feels it is related to some allergy symptoms and drainage down her throat. States her daughter had similar sore throat but it got better and did not appear to be strep throat. Timing/Duration: waxing and waning, other (since 04/12) Severity/Quality: severe, throbbing Location: other (left side of head from base of neck and sore muscles) Prior Headaches/Recent Trauma: frequent headaches, chronic headaches Modifying Factors: worse with exposure to light Associated Symptoms: No confusion, No fatigue, No facial pain, No fever/chills, No flushing, No loss of consciousness; nausea/vomiting, nasal congestion; No numbness in legs/feet, No rash, No seizures, No sinus infection, No stiff neck, No vision changes, No weakness Allergies and Home Medications Allergies Coded Allergies: Sulfa (Sulfonamide Antibiotics) (Verified Allergy, Mild, Itching, 03/14/19) cefuroxime (Verified Allergy, Unknown, 08/21/18) haloperidol (Verified Allergy, Unknown, 10/31/18) magnesium (Verified Allergy, Unknown, 08/21/18) prochlorperazine (Verified Allergy, Unknown, rash, 08/21/18) topiramate (Verified Allergy, Unknown, 08/21/18) tramadol (Verified Allergy, Unknown, 10/31/18) Uncoded Allergies: DHE (Allergy, Unknown, 10/31/18) Patient Home Medication List Home Medication List Reviewed: Yes Bupropion HCl (Bupropion HCl Sr) 150 Mg Tablet.er, (Reported) Entered as Reported by: PARESH KNOTT on 08/22/18 1024 Butalbital/Aspirin/Caffeine (Fiorinal 50-325-40 mg Capsule) 1 Each Capsule, 1 EACH PO TID PRN for Headache Prescribed by: MELANIE CLAYTON on 09/02/19 1856 Butorphanol Tartrate (Butorphanol Tartrate) 25 Mg [place], (Reported) Entered as Reported by: PARESH KNOTT on 08/22/18 1024 Levothyroxine Sodium (Synthroid) 50 Mcg Tablet, (Reported) Entered as Reported by: PARESH KNOTT on 08/22/18 1024 Levothyroxine Sodium (Synthroid) 200 Mcg Tablet, (Reported) Entered as Reported by: PARESH KNOTT on 08/22/18 1024 Lorazepam (Lorazepam) 1 Mg Tablet, (Reported) Entered as Reported by: PARESH KNOTT on 08/22/18 1024 Promethazine HCl (Promethazine HCl) 50 Mg Supp.rect, 50 MG RC Q8H Prescribed by: TRISTEN LANDRY on 11/29/19 1555 Promethazine HCl (Promethazine Tablet) 25 Mg Tablet, 25 MG PO Q6H PRN for headache/nausea Prescribed by: LITA DE SANTIAGO on 03/18/22 1346 Propranolol HCl (Propranolol HCl) 20 Mg Tablet, (Reported) Entered as Reported by: PARESH KNOTT on 08/22/18 1024 Venlafaxine HCl (Venlafaxine HCl ER) 150 Mg Cap.er.24h, (Reported) Entered as Reported by: PARESH KNOTT on 08/22/18 1024 Zolpidem Tartrate (Zolpidem Tartrate) 5 Mg Tablet, (Reported) Entered as Reported by: PARESH KNOTT on 08/22/18 1024 Review of Systems Review of Systems Constitutional: No chills, No fever Eyes: Photophobia Ears, Nose, Mouth, Throat: denies ear pain, denies ear discharge, denies nose pain, denies epistaxis; throat pain (sinus drainage down back of throat) Respiratory: no symptoms reported Cardiovascular: no symptoms reported Gastrointestinal: see HPI Genitourinary: no symptoms reported Musculoskeletal: no symptoms reported Skin: No rash Psychiatric/Neurological: Anxiety, Headache Past Bsgjram-Wijewt-Ptkbrw Hx Patient Social History Tobacco Use?: No Substance use?: No Alcohol Use?: No Pt feels they are or have been: No Immunizations Up To Date First/Initial COVID19 Vaccinat: up to date Second COVID19 Vaccination Francis: up to date Third COVID19 Vaccination Date: up to date Seasonal Allergies Seasonal Allergies: No Past Medical History 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, 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 Surgeries: Yes 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 Respiratory: No Cardiac: No 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 oz. 70.311006ta; 24.00 BMI Method:Stated General Appearance: WD/WN, other (anxious and wearing sunglasses) HEENT: PERRL/EOMI, photophobia, pharyngeal erythema; No tonsillar exudate Neck: full range of motion, supple, tender lateral (left lateral posterior neck muscles with spasm) Cardiovascular: normal peripheral pulses, tachycardia Respiratory: chest non-tender, lungs clear, normal breath sounds, no respiratory distress, no accessory muscle use Gastrointestinal: normal bowel sounds, non tender, soft, no pulsatile mass Extremities: normal range of motion, non-tender, normal capillary refill Psychiatric: alert, oriented x 3 Crainal Nerves: normal hearing, normal speech, PERRL Coordination/Gait: normal gait Motor/Sensory: no motor deficit, no sensory deficit Skin: normal color, warm/dry Progress/Results/Core Measures Results/Orders My Orders Orders - SUSANA LOPEZ MD Ketorolac Injection (Toradol Injection) (04/14/22 04:53) Diphenhydramine Injection (Benadryl Inje (04/14/22 04:53) Promethazine Injection (Phenergan Injec (04/14/22 04:53) Lorazepam Tablet (Ativan Tablet) (04/14/22 04:53) Vital Signs/I&O 04/14/22 04:39 Temp 37.0 Pulse 118 Resp 14 B/P (MAP) 152/79 (103) Pulse Ox 99 O2 Delivery Room Air Blood Pressure Mean: 103 Progress Progress Note : Progress Note Patient reports this feels like her typical migraine headache. As she has already tried meds at home will administer Migraine cocktail as IM shots that have helped her in the past. Toradol 60 mg IM, Promethazine 50 mg IM, Diphenhydramine 50 mg IM. Will add on ativan to try and help with anxiety and tachycardia. Counseled pt that we did not have IM form of Ativan since there is a national shortage. Pharmacy had directed us to have patients try to dissolve the medicine between their cheek and gums to absorb faster and get into the blood stream better than taking orally. Encouraged to follow up with Neurology and Endocrinology as planned and check with Dr. Veloz as well for continued concerns. Departure Impression Primary Impression: Migraine headache without aura Qualified Codes: G43.019 - Migraine without aura, intractable, without status migrainosus Disposition: 01 HOME, SELF-CARE Condition: Stable Departure-Patient Inst. Decision time for Depature: 04:55 Referrals: SABINA VELOZ MD (PCP/Family) Primary Care Physician Patient Instructions: Migraines in Adults Add. Discharge Instructions: Rest in cool dark room. Continue with your regular medicines at home. Follow up with Neurology, Endocrinology and Dr. Veloz for continued concerns and management All discharge instructions reviewed with patient and/or family. Voiced understanding. SUSANA LOPEZ MD Apr 14, 2022 04:56
== END 2022-04-14 05:12 | disposition home or self-care (01) ==
LOC: EDUNIT# 04:33 → ER FS 04:36
DX: G43.009 Migraine without aura, not intractable, without status migrainosus (principal); Z28.310 Unvaccinated for COVID-19
CPT/HCPCS: 96372; 99284

== ENCOUNTER 2022-05-06 20:29 | Emergency (ER) | payer MEDICARE ==
[~2022-05-06] VITALS: Ht 170 cm; Wt 68.5 kg
[2022-05-06 20:45] VITALS: BP 131/66
[2022-05-06] MEDS ORDERED: PROMETHAZINE INJ 25 MG/ML (PHENERGAN) AMP IM STA (20:45)
[2022-05-06] MEDS ORDERED: KETOROLAC 60 MG/2 ML VIAL IM STA (20:45)
[2022-05-06] MEDS ORDERED: diphenhydrAMINE 50 MG/ML INJ (BENADRYL) IM STA (20:45)
--- NOTE | 2022-05-06 20:47 | ED Headache ---
General Stated Complaint: HEADACHE Source: patient History of Present Illness Date Seen by Provider: May 06, 2022 Time Seen by Provider: 20:40 Initial Comments 41-year-old female presenting with complaints of migraine headache. She states that this headache started yesterday. She has been under extra stress worried about her having fevers and knee swelling. He had an MRI yesterday and had fluid drained off of his knee. She also has tension and tight muscles in her neck from a neck injury in February. She is due for her Botox injections next week. She denies any new head injury, fever, chills, vision change, numbne ss, weakness. Overall this feels similar to her prior migraine headaches. She has tried her home medicines without improvement. She has had 4-5 episodes of vomiting water as that is about all she has on her stomach. Timing/Duration: constant (Over the last 2 days) Severity/Quality: severe Location: global Prior Headaches/Recent Trauma: frequent headaches, chronic headaches Modifying Factors: worse with exposure to light, worse with movement Associated Symptoms: No confusion; fatigue; No facial pain, No fever/chills, No flushing, No loss of consciousness; nausea/vomiting; No nasal congestion, No nasal drainage, No numbness in legs/feet, No rash, No seizures, No sinus infection, No stiff neck, No vision changes, No weakness Allergies and Home Medications Allergies Coded Allergies: Sulfa (Sulfonamide Antibiotics) (Verified Allergy, Mild, Itching, 03/14/19) cefuroxime (Verified Allergy, Unknown, 08/21/18) haloperidol (Verified Allergy, Unknown, 10/31/18) magnesium (Verified Allergy, Unknown, 08/21/18) prochlorperazine (Verified Allergy, Unknown, rash, 08/21/18) topiramate (Verified Allergy, Unknown, 08/21/18) tramadol (Verified Allergy, Unknown, 10/31/18) Uncoded Allergies: DHE (Allergy, Unknown, 10/31/18) Patient Home Medication List Home Medication List Reviewed: Yes Bupropion HCl (Bupropion HCl Sr) 150 Mg Tablet.er, (Reported) Entered as Reported by: PARESH KNOTT on 08/22/18 1024 Butalbital/Aspirin/Caffeine (Fiorinal 50-325-40 mg Capsule) 1 Each Capsule, 1 EACH PO TID PRN for Headache Prescribed by: MELANIE CLAYTON on 09/02/19 1856 Butorphanol Tartrate (Butorphanol Tartrate) 25 Mg [place], (Reported) Entered as Reported by: PARESH KNOTT on 08/22/18 1024 Levothyroxine Sodium (Synthroid) 50 Mcg Tablet, (Reported) Entered as Reported by: APRESH KNOTT on 08/22/18 1024 Levothyroxine Sodium (Synthroid) 200 Mcg Tablet, (Reported) Entered as Reported by: PARESH KNOTT on 08/22/18 1024 Lorazepam (Lorazepam) 1 Mg Tablet, (Reported) Entered as Reported by: PARESH KNOTT on 08/22/18 1024 Promethazine HCl (Promethazine HCl) 50 Mg Supp.rect, 50 MG RC Q8H Prescribed by: TRISTEN LANDRY on 11/29/19 1555 Promethazine HCl (Promethazine Tablet) 25 Mg Tablet, 25 MG PO Q6H PRN for headache/nausea Prescribed by: LITA DE SANTIAGO on 03/18/22 1346 Propranolol HCl (Propranolol HCl) 20 Mg Tablet, (Reported) Entered as Reported by: PARESH KNOTT on 08/22/18 1024 Venlafaxine HCl (Venlafaxine HCl ER) 150 Mg Cap.er.24h, (Reported) Entered as Reported by: PARESH KNOTT on 08/22/18 1024 Zolpidem Tartrate (Zolpidem Tartrate) 5 Mg Tablet, (Reported) Entered as Reported by: PARESH KNOTT on 08/22/18 1024 Review of Systems Review of Systems Constitutional: No chills, No fever Eyes: Photophobia Ears, Nose, Mouth, Throat: no symptoms reported Respiratory: no symptoms reported Cardiovascular: no symptoms reported Gastrointestinal: see HPI Genitourinary: no symptoms reported Musculoskeletal: see HPI Skin: No rash Psychiatric/Neurological: See HPI Past Zhmbhfc-Hqdapo-Syulfo Hx Patient Social History Tobacco Use?: No Substance use?: No Alcohol Use?: No Immunizations Up To Date First/Initial COVID19 Vaccinat: up to date Second COVID19 Vaccination Francis: up to date Third COVID19 Vaccination Date: up to date Seasonal Allergies Seasonal Allergies: No Past Medical History 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, 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 oz. 70.710111pj; 24.00 BMI Method:Stated General Appearance: WD/WN, moderate distress (anxious) HEENT: PERRL/EOMI, pharynx normal Neck: full range of motion, supple, tender lateral (bilateral sternocleidomas toid muscles tight with spasms) Cardiovascular: normal peripheral pulses, regular rate, rhythm Respiratory: chest non-tender, lungs clear, normal breath sounds, no respiratory distress, no accessory muscle use Gastrointestinal: normal bowel sounds, non tender, soft, no pulsatile mass Extremities: normal range of motion, non-tender, normal capillary refill Psychiatric: alert, oriented x 3 Crainal Nerves: normal hearing, normal speech, PERRL Coordination/Gait: normal gait Motor/Sensory: no motor deficit, no sensory deficit Skin: normal color, warm/dry Progress/Results/Core Measures Results/Orders My Orders Orders - SUSANA LOPEZ MD Ketorolac Injection (Toradol Injection) (05/06/22 20:45) Diphenhydramine Injection (Benadryl Inje (05/06/22 20:45) Promethazine Injection (Phenergan Injec (05/06/22 20:45) Vital Signs/I&O 05/06/22 20:45 Temp 36.0 Pulse 93 Resp 18 B/P (MAP) 131/66 (87) Progress Progress Note : Progress Note As patient reports this feels similar to her usual chronic frequent migraines we will order medications as she has received on previous ER visits. Toradol 60 mg IM, Benadryl 50 mg IM, Phenergan 50 mg IM. Encouraged to go home and rest in a cool dark room. Push fluids and rest. Follow-up with Dr. Veloz and her neurologist. Departure Impression Primary Impression: Migraine headache without aura Qualified Codes: G43.019 - Migraine without aura, intractable, without status migrainosus Disposition: HOME, SELF-CARE Condition: Stable Departure-Patient Inst. Decision time for Depature: 20:46 Referrals: SABINA VELOZ MD (PCP/Family) Primary Care Physician Patient Instructions: Migraines in Adults Add. Discharge Instructions: Rest in cool dark room Continue on your regular medicines Follow up with Dr. Veloz and Neurology for continued concerns SUSANA LOPEZ MD May 06, 2022 20:47
== END 2022-05-06 21:11 | disposition home or self-care (01) ==
LOC: EDUNIT# 20:29 → ER FS 20:32
DX: G43.009 Migraine without aura, not intractable, without status migrainosus (principal); M62.838 Other muscle spasm; Z28.310 Unvaccinated for COVID-19
CPT/HCPCS: 99284

== ENCOUNTER 2022-06-04 21:18 | Emergency (ER) | payer MEDICARE ==
[~2022-06-04] VITALS: Ht 170 cm; Wt 68.5 kg
--- NOTE | 2022-06-04 21:25 | ED Headache ---
General Stated Complaint: MIGRAINE Source: patient, family Exam Limitations: no limitations History of Present Illness Date Seen by Provider: Jun 04, 2022 Time Seen by Provider: 21:20 Initial Comments 41-year-old female with past medical history of chronic migraines coming in due to migraine headache. This started last night, no fever, no neck stiffness, cough, chest pain, shortness of breath, weakness, numbness, vision changes, or any other concerns. Feels similar to multiple previous headaches that she has had in the past. She took her home migraine medication which did not help. Allergies and Home Medications Allergies Coded Allergies: Sulfa (Sulfonamide Antibiotics) (Verified Allergy, Mild, Itching, 03/14/19) cefuroxime (Verified Allergy, Unknown, 08/21/18) haloperidol (Verified Allergy, Unknown, 10/31/18) magnesium (Verified Allergy, Unknown, 08/21/18) prochlorperazine (Verified Allergy, Unknown, rash, 08/21/18) topiramate (Verified Allergy, Unknown, 08/21/18) tramadol (Verified Allergy, Unknown, 10/31/18) Uncoded Allergies: DHE (Allergy, Unknown, 10/31/18) Patient Home Medication List Home Medication List Reviewed: Yes Bupropion HCl (Bupropion HCl Sr) 150 Mg Tablet.er, (Reported) Entered as Reported by: PARESH KNOTT on 08/22/18 1024 Butalbital/Aspirin/Caffeine (Fiorinal 50-325-40 mg Capsule) 1 Each Capsule, 1 EACH PO TID PRN for Headache Prescribed by: MELANIE CLAYTON on 09/02/19 185 Butorphanol Tartrate (Butorphanol Tartrate) 25 Mg [place], (Reported) Entered as Reported by: PARESH KNTOT on 08/22/18 1024 Levothyroxine Sodium (Synthroid) 50 Mcg Tablet, (Reported) Entered as Reported by: PARESH KNOTT on 08/22/18 1024 Levothyroxine Sodium (Synthroid) 200 Mcg Tablet, (Reported) Entered as Reported by: PARESH KNOTT on 08/22/18 1024 Lorazepam (Lorazepam) 1 Mg Tablet, (Reported) Entered as Reported by: PARESH KNOTT on 08/22/18 1024 Promethazine HCl (Promethazine HCl) 50 Mg Supp.rect, 50 MG RC Q8H Prescribed by: TRISTEN LANDRY on 11/29/19 1555 Promethazine HCl (Promethazine Tablet) 25 Mg Tablet, 25 MG PO Q6H PRN for headache/nausea Prescribed by: LITA DE SANTIAGO on 03/18/22 1346 Propranolol HCl (Propranolol HCl) 20 Mg Tablet, (Reported) Entered as Reported by: PARESH KNOTT on 08/22/18 1024 Venlafaxine HCl (Venlafaxine HCl ER) 150 Mg Cap.er.24h, (Reported) Entered as Reported by: PARESH KNOTT on 08/22/18 1024 Zolpidem Tartrate (Zolpidem Tartrate) 5 Mg Tablet, (Reported) Entered as Reported by: PARESH KNOTT on 08/22/18 1024 Review of Systems Review of Systems Constitutional: No fever Eyes: No Symptoms Reported Respiratory: no symptoms reported Cardiovascular: no symptoms reported Gastrointestinal: no symptoms reported Genitourinary: no symptoms reported Musculoskeletal: no symptoms reported Skin: no symptoms reported Psychiatric/Neurological: See HPI All Other Systems Reviewed Negative Unless Noted: Yes Past Ygixtvr-Txkzjs-Npubit Hx Patient Social History Tobacco Use?: No Immunizations Up To Date First/Initial COVID19 Vaccinat: up to date Second COVID19 Vaccination Francis: up to date Third COVID19 Vaccination Date: up to date Seasonal Allergies Seasonal Allergies: No Past Medical History 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, 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 oz. [id number]; 23.00 BMI Method:Stated General Appearance: WD/WN, mild distress HEENT: PERRL/EOMI, normal ENT inspection, pharynx normal Neck: non-tender, full range of motion, supple, normal inspection Cardiovascular: regular rate, rhythm, no edema, no murmur Respiratory: chest non-tender, lungs clear, normal breath sounds, no respiratory distress, no accessory muscle use Gastrointestinal: normal bowel sounds, non tender, soft; No distended, No guarding, No rebound Back: normal inspection, no CVA tenderness Extremities: normal range of motion, non-tender, normal inspection, no pedal edema, no calf tenderness, normal capillary refill Psychiatric: alert Crainal Nerves: normal hearing, normal speech, PERRL Coordination/Gait: normal finger to nose, normal gait Motor/Sensory: no motor deficit, no sensory deficit, no pronator drift Skin: normal color, warm/dry Lymphatic: no adenopathy Progress/Results/Core Measures Results/Orders My Orders Orders - LITA DE SANTIAGO MD Promethazine Injection (Phenergan Injec (06/04/22 21:30) Diphenhydramine Injection (Benadryl Inje (06/04/22 21:30) Ketorolac Injection (Toradol Injection) (06/04/22 21:30) Progress Progress Note : Progress Note 41-year-old female presenting for migraine headache. She states it feels similar to all her previous migraine headaches. No trauma related to this. No red flags associated with this headache. She was given IM medications and discharged home in stable condition. Of note, prior to discharge, patient states multiple family members have been sick and she would like to be flu tested. Departure Impression Primary Impression: Acute migraine Disposition: 01 HOME, SELF-CARE Condition: Stable Departure-Patient Inst. Decision time for Depature: 21:24 Referrals: SABINA VELOZ MD (PCP/Family) Primary Care Physician Patient Instructions: Headache, Adult (DC) Add. Discharge Instructions: Please be sure to drink plenty of fluids, follow-up with your regular doctor if things are not improving. Work/School Note: Family Work Note, Patient Received Medical Care In the Emergency Department On: Jun 04, 2022 Patient Will Be Able to Return to Work/School On: Jun 05, 2022 Work Release Form Date Seen in the Emergency Department: Jun 04, 2022 Return to Work: Jun 06, 2022 Restrictions: No Restrictions LITA DE SANTIAGO MD Jun 04, 2022 21:25
[2022-06-04] MEDS ORDERED: PROMETHAZINE INJ 25 MG/ML (PHENERGAN) AMP IM ONE (21:30)
[2022-06-04] MEDS ORDERED: KETOROLAC 15 MG/ML VIAL IM ONE (21:30)
[2022-06-04] MEDS ORDERED: diphenhydrAMINE 50 MG/ML INJ (BENADRYL) IM ONE (21:30)
[2022-06-04 21:50] VITALS: BP 123/84
== END 2022-06-04 21:50 | disposition home or self-care (01) ==
LOC: EDUNIT# 21:18 → ER FS 21:19
DX: G43.909 Migraine, unspecified, not intractable, without status migrainosus (principal); Z28.310 Unvaccinated for COVID-19; Z20.822 Contact with and (suspected) exposure to COVID-19
CPT/HCPCS: 87636; 99284

== ENCOUNTER 2022-06-12 03:40 | Emergency (ER) | payer MEDICARE ==
[2022-06-12] MEDS ORDERED: PROMETHAZINE INJ 25 MG/ML (PHENERGAN) AMP IM STA (03:51)
[2022-06-12] MEDS ORDERED: KETOROLAC 30 MG/ML VIAL IM STA (03:51)
[2022-06-12] MEDS ORDERED: diphenhydrAMINE 50 MG/ML INJ (BENADRYL) IM STA (03:51)
--- NOTE | 2022-06-12 03:51 | ED Headache ---
General Stated Complaint: HEADACHE History of Present Illness Date Seen by Provider: Jun 12, 2022 Time Seen by Provider: 03:47 Initial Comments 41-year-old female presents with a headache. Patient has a numerous number of visits for similar headaches. Patient reports she took her migraine medicine and it helped. She presents with some nausea and vomiting. Patient also reports that she "drained a muscle in her back" and that may be contributing to it. Allergies and Home Medications Allergies Coded Allergies: Sulfa (Sulfonamide Antibiotics) (Verified Allergy, Mild, Itching, 03/14/19) cefuroxime (Verified Allergy, Unknown, 08/21/18) haloperidol (Verified Allergy, Unknown, 10/31/18) magnesium (Verified Allergy, Unknown, 08/21/18) prochlorperazine (Verified Allergy, Unknown, rash, 08/21/18) topiramate (Verified Allergy, Unknown, 08/21/18) tramadol (Verified Allergy, Unknown, 10/31/18) Uncoded Allergies: DHE (Allergy, Unknown, 10/31/18) Patient Home Medication List Home Medication List Reviewed: Yes Bupropion HCl (Bupropion HCl Sr) 150 Mg Tablet.er, (Reported) Entered as Reported by: PARESH KNOTT on 08/22/18 1024 Butalbital/Aspirin/Caffeine (Fiorinal 50-325-40 mg Capsule) 1 Each Capsule, 1 EACH PO TID PRN for Headache Prescribed by: MELANIE CLAYTON on 09/02/19 1856 Butorphanol Tartrate (Butorphanol Tartrate) 25 Mg [place], (Reported) Entered as Reported by: PARESH KNOTT on 08/22/18 1024 Levothyroxine Sodium (Synthroid) 50 Mcg Tablet, (Reported) Entered as Reported by: PARESH KNOTT on 08/22/18 1024 Levothyroxine Sodium (Synthroid) 200 Mcg Tablet, (Reported) Entered as Reported by: PARESH KNOTT on 08/22/18 1024 Lorazepam (Lorazepam) 1 Mg Tablet, (Reported) Entered as Reported by: PARESH KNOTT on 08/22/18 1024 Promethazine HCl (Promethazine HCl) 50 Mg Supp.rect, 50 MG RC Q8H Prescribed by: TRISTEN LANDRY on 11/29/19 1555 Promethazine HCl (Promethazine Tablet) 25 Mg Tablet, 25 MG PO Q6H PRN for headache/nausea Prescribed by: LITA DE SANTIAGO on 03/18/22 1346 Propranolol HCl (Propranolol HCl) 20 Mg Tablet, (Reported) Entered as Reported by: PARESH KNOTT on 08/22/18 1024 Venlafaxine HCl (Venlafaxine HCl ER) 150 Mg Cap.er.24h, (Reported) Entered as Reported by: PARESH KNOTT on 08/22/18 1024 Zolpidem Tartrate (Zolpidem Tartrate) 5 Mg Tablet, (Reported) Entered as Reported by: PARESH KNOTT on 08/22/18 1024 Review of Systems Review of Systems Constitutional: see HPI Eyes: Photophobia Ears, Nose, Mouth, Throat: no symptoms reported Respiratory: no symptoms reported Cardiovascular: no symptoms reported Gastrointestinal: nausea, vomiting Genitourinary: no symptoms reported Musculoskeletal: back pain Skin: no symptoms reported Past Qjypzsi-Yvoxlk-Wgquvl Hx Immunizations Up To Date First/Initial COVID19 Vaccinat: up to date Second COVID19 Vaccination Francis: up to date Third COVID19 Vaccination Date: up to date Seasonal Allergies Seasonal Allergies: No Past Medical History 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, 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 Surgeries: Yes 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 Respiratory: No Cardiac: No Neurological: 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 oz. 70.773026ec; 23.00 BMI Method:Stated General Appearance: no apparent distress HEENT: other (wearing sunglasses) Neck: supple Cardiovascular: regular rate, rhythm, no edema Respiratory: no respiratory distress, no accessory muscle use Psychiatric: alert, oriented x 3 Crainal Nerves: normal hearing, normal speech Coordination/Gait: normal gait Progress/Results/Core Measures Results/Orders My Orders Orders - WHEELER,LITZY L DO Ketorolac Injection (Toradol Injection) (06/12/22 03:51) Promethazine Injection (Phenergan Injec (06/12/22 03:51) Diphenhydramine Injection (Benadryl Inje (06/12/22 03:51) Vital Signs/I&O 06/12/22 03:44 Temp 36.4 Pulse 84 Resp 18 B/P (MAP) 142/77 (98) Pulse Ox 98 O2 Delivery Room Air Progress Progress Note : Progress Note Patient provided Toradol, Phenergan and Benadryl IM. She is discharged home. She should follow with her primary care provider and neurologist. Patient with no red flags and similar to her previous complaints. Departure Impression Primary Impression: Migraine headache without aura Qualified Codes: G43.009 - Migraine without aura, not intractable, without status migrainosus Additional Impression: Back strain Qualified Codes: S39.012A - Strain of muscle, fascia and tendon of lower back, initial encounter Disposition: 01 HOME, SELF-CARE Condition: Stable Departure-Patient Inst. Referrals: SABINA VELOZ MD (PCP/Family) Primary Care Physician Patient Instructions: Back Muscle Strain (DC), Migraines (DC) Add. Discharge Instructions: 4% topical lidocaine cream gel or patch use as directed on package to low back, Voltaren/diclofenac cream use as directed on package to low back. Follow-up with your primary care provider as needed WHEELERLITZY DO Jun 12, 2022 03:51
[2022-06-12 04:03] VITALS: BP 142/77
== END 2022-06-12 04:03 | disposition home or self-care (01) ==
LOC: EDUNIT# 03:40 → ER FS 03:43
DX: S39.012A Strain of muscle, fascia and tendon of lower back, initial encounter (principal); G43.009 Migraine without aura, not intractable, without status migrainosus; Z28.310 Unvaccinated for COVID-19; X58.XXXA Exposure to other specified factors, initial encounter
CPT/HCPCS: 99284

== ENCOUNTER 2022-06-17 03:20 | Emergency (ER) | payer MEDICARE ==
[2022-06-17 03:25] VITALS: BP 145/116
--- NOTE | 2022-06-17 03:35 | ED Headache ---
General Chief Complaint: Head/Cervical Problems Stated Complaint: MIGRAINE History of Present Illness Date Seen by Provider: Jun 17, 2022 Time Seen by Provider: 03:30 Initial Comments 41-year-old female with a longstanding history of migraine headaches presents today with migraine headache. Feels like it similar to the last 1. No red flag symptoms. She is on some antibiotics and was given antibiotics today for an eye infection. She has not taken them yet due to the nausea from the migraine. She is feeling pain is on the left side of the head and in the left back of the head. Allergies and Home Medications Allergies Coded Allergies: Sulfa (Sulfonamide Antibiotics) (Verified Allergy, Mild, Itching, 03/14/19) cefuroxime (Verified Allergy, Unknown, 08/21/18) haloperidol (Verified Allergy, Unknown, 10/31/18) magnesium (Verified Allergy, Unknown, 08/21/18) prochlorperazine (Verified Allergy, Unknown, rash, 08/21/18) topiramate (Verified Allergy, Unknown, 08/21/18) tramadol (Verified Allergy, Unknown, 10/31/18) Uncoded Allergies: DHE (Allergy, Unknown, 10/31/18) Patient Home Medication List Home Medication List Reviewed: Yes Bupropion HCl (Bupropion HCl Sr) 150 Mg Tablet.er, (Reported) Entered as Reported by: PARESH KNOTT on 08/22/18 1024 Butalbital/Aspirin/Caffeine (Fiorinal 50-325-40 mg Capsule) 1 Each Capsule, 1 EACH PO TID PRN for Headache Prescribed by: MELANIE CLAYTON on 09/02/19 185 Butorphanol Tartrate (Butorphanol Tartrate) 25 Mg [place], (Reported) Entered as Reported by: PARESH KNOTT on 08/22/18 1024 Levothyroxine Sodium (Synthroid) 50 Mcg Tablet, (Reported) Entered as Reported by: PARESH KNOTT on 08/22/18 1024 Levothyroxine Sodium (Synthroid) 200 Mcg Tablet, (Reported) Entered as Reported by: PARESH KNOTT on 08/22/18 1024 Lorazepam (Lorazepam) 1 Mg Tablet, (Reported) Entered as Reported by: PARESH KNOTT on 08/22/18 1024 Promethazine HCl (Promethazine HCl) 50 Mg Supp.rect, 50 MG RC Q8H Prescribed by: TRISTEN LANDRY on 11/29/19 1555 Promethazine HCl (Promethazine Tablet) 25 Mg Tablet, 25 MG PO Q6H PRN for headache/nausea Prescribed by: LITA DE SANTIAGO on 03/18/22 1346 Propranolol HCl (Propranolol HCl) 20 Mg Tablet, (Reported) Entered as Reported by: PARESH KNOTT on 08/22/18 1024 Venlafaxine HCl (Venlafaxine HCl ER) 150 Mg Cap.er.24h, (Reported) Entered as Reported by: PARESH KNOTT on 08/22/18 1024 Zolpidem Tartrate (Zolpidem Tartrate) 5 Mg Tablet, (Reported) Entered as Reported by: PARESH KNOTT on 08/22/18 1024 Review of Systems Review of Systems Constitutional: see HPI Past Ztacigq-Kgbouo-Libjjt Hx Patient Social History Tobacco Use?: No Immunizations Up To Date First/Initial COVID19 Vaccinat: up to date Second COVID19 Vaccination Francis: up to date Third COVID19 Vaccination Date: up to date Seasonal Allergies Seasonal Allergies: No Past Medical History 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, 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 oz. 70.915292uh; 23.00 BMI Method:Stated General Appearance: WD/WN, moderate distress HEENT: photophobia, other (head tender in posterior aspect) Neck: other (tender posterior neck) Psychiatric: alert, oriented x 3 Crainal Nerves: normal hearing Progress/Results/Core Measures Results/Orders My Orders Orders - MELVIN FLANNERY MD Diphenhydramine Injection (Benadryl Inje (06/17/22 03:45) Dexamethasone Injection (Decadron Inje (06/17/22 03:45) Promethazine Injection (Phenergan Injec (06/17/22 03:45) Ketorolac Injection (Toradol Injection) (06/17/22 03:45) Medications Given in ED Current Medications Medications Dose Ordered Sig/Shell Route Start Time Stop Time Status Last Admin Dose Admin Dexamethasone Sodium Phosphate 10 mg ONCE ONCE IM 06/17/22 03:45 06/17/22 03:46 DC 06/17/22 04:06 10 MG Diphenhydramine HCl 50 mg ONCE ONCE IM 06/17/22 03:45 06/17/22 03:46 DC 06/17/22 04:04 50 MG Ketorolac Tromethamine 30 mg ONCE ONCE IM 06/17/22 03:45 06/17/22 03:46 DC 06/17/22 04:05 30 MG Promethazine HCl 25 mg ONCE ONCE IM 06/17/22 03:45 06/17/22 03:48 DC 06/17/22 04:08 25 MG Vital Signs/I&O 06/17/22 03:25 Temp 36.5 Pulse 88 Resp 16 B/P (MAP) 145/116 (126) Departure Impression Primary Impression: Acute migraine Disposition: 01 HOME, SELF-CARE Condition: Improved Departure-Patient Inst. Decision time for Depature: 04:09 Referrals: SABINA VELOZ MD (PCP/Family) Primary Care Physician Patient Instructions: Migraines (DC), Headache, Adult (DC) Add. Discharge Instructions: Take home prescribed migraine meds as needed and as prescribed. Follow-up with primary care and your neurologist. All discharge instructions reviewed with patient and/or family. Voiced understanding. MELVIN FLANNERY MD Jun 17, 2022 03:35
[2022-06-17] MEDS ORDERED: diphenhydrAMINE 50 MG/ML INJ (BENADRYL) IM ONE (03:45)
[2022-06-17] MEDS ORDERED: KETOROLAC 30 MG/ML VIAL IM ONE (03:45)
[2022-06-17] MEDS ORDERED: PROMETHAZINE INJ 25 MG/ML (PHENERGAN) AMP IM ONE (03:45)
== END 2022-06-17 04:15 | disposition home or self-care (01) ==
LOC: EDUNIT# 03:20 → ER FS 03:23
DX: G43.909 Migraine, unspecified, not intractable, without status migrainosus (principal)
CPT/HCPCS: 99284

== ENCOUNTER 2022-08-03 03:46 | Emergency (ER) | payer MEDICARE ==
[~2022-08-03] VITALS: Ht 162 cm; Wt 58.9 kg
[2022-08-03] MEDS ORDERED: KETOROLAC 15 MG/ML VIAL IM/IV ONE (04:15)
[2022-08-03] MEDS ORDERED: diphenhydrAMINE 50 MG/ML INJ (BENADRYL) IM ONE (04:15)
[2022-08-03] MEDS ORDERED: PROMETHAZINE INJ 25 MG/ML (PHENERGAN) AMP IM ONE (04:15)
--- NOTE | 2022-08-03 04:15 | ED Headache ---
General Chief Complaint: Head/Cervical Problems Stated Complaint: MIGRAINE Nursing Triage Note: PATIENT REPORTS HEADACHE WORSEN OVER THE LAST TWO DAYS. PATIENT STATES AROUND MIDNIGHT STARTED VOMITTING. Source: patient Exam Limitations: no limitations History of Present Illness Date Seen by Provider: Aug 03, 2022 Time Seen by Provider: 04:10 Initial Comments Patient is a 41-year-old female well-known to the emergency department with chronic migraines who presents with typical migraine headache starting 2 weeks ago. Headache gradually worsened over the past several hours. 55 located in the same pattern location is in similar intensity as prior migraines. Denies known triggers. No other acute symptoms or complaints Timing/Duration: 1-3 hours Severity/Quality: moderate Location: other Prior Headaches/Recent Trauma: other Modifying Factors: improves with other Allergies and Home Medications Allergies Coded Allergies: Sulfa (Sulfonamide Antibiotics) (Verified Allergy, Mild, Itching, 03/14/19) cefuroxime (Verified Allergy, Unknown, 08/21/18) haloperidol (Verified Allergy, Unknown, 10/31/18) magnesium (Verified Allergy, Unknown, 08/21/18) prochlorperazine (Verified Allergy, Unknown, rash, 08/21/18) topiramate (Verified Allergy, Unknown, 08/21/18) tramadol (Verified Allergy, Unknown, 10/31/18) Uncoded Allergies: DHE (Allergy, Unknown, 10/31/18) Patient Home Medication List Home Medication List Reviewed: Yes Bupropion HCl (Bupropion HCl Sr) 150 Mg Tablet.er, (Reported) Entered as Reported by: PARESH KNOTT on 08/22/18 1024 Butalbital/Aspirin/Caffeine (Fiorinal 50-325-40 mg Capsule) 1 Each Capsule, 1 EACH PO TID PRN for Headache Prescribed by: MELANIE CLAYTON on 09/02/19 1856 Butorphanol Tartrate (Butorphanol Tartrate) 25 Mg [place], (Reported) Entered as Reported by: PARESH KNOTT on 08/22/18 1024 Levothyroxine Sodium (Synthroid) 50 Mcg Tablet, (Reported) Entered as Reported by: PARESH KNOTT on 08/22/18 1024 Levothyroxine Sodium (Synthroid) 200 Mcg Tablet, (Reported) Entered as Reported by: PARESH KNOTT on 08/22/18 1024 Lorazepam (Lorazepam) 1 Mg Tablet, (Reported) Entered as Reported by: PARESH KNOTT on 08/22/18 1024 Promethazine HCl (Promethazine HCl) 50 Mg Supp.rect, 50 MG RC Q8H Prescribed by: TRISTEN LANDRY on 11/29/19 1555 Promethazine HCl (Promethazine Tablet) 25 Mg Tablet, 25 MG PO Q6H PRN for headache/nausea Prescribed by: LITA DE SANTIAGO on 03/18/22 1346 Propranolol HCl (Propranolol HCl) 20 Mg Tablet, (Reported) Entered as Reported by: PARESH KNOTT on 08/22/18 1024 Venlafaxine HCl (Venlafaxine HCl ER) 150 Mg Cap.er.24h, (Reported) Entered as Reported by: PARESH KNOTT on 08/22/18 1024 Zolpidem Tartrate (Zolpidem Tartrate) 5 Mg Tablet, (Reported) Entered as Reported by: PARESH KNOTT on 08/22/18 1024 Review of Systems Review of Systems Constitutional: see HPI Eyes: See HPI Ears, Nose, Mouth, Throat: see HPI Respiratory: see HPI Cardiovascular: see HPI Gastrointestinal: see HPI Genitourinary: see HPI : No Musculoskeletal: see HPI Skin: see HPI Psychiatric/Neurological: See HPI All Other Systems Reviewed Negative Unless Noted: No Past Gajbrpk-Yavowq-Njbiob Hx Patient Social History Tobacco Use?: No Immunizations Up To Date Influenza Vaccine Up-to-Date: Yes; Up-to-Date First/Initial COVID19 Vaccinat: up to date Second COVID19 Vaccination Francis: up to date Third COVID19 Vaccination Date: up to date Seasonal Allergies Seasonal Allergies: No Past Medical History 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, 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 oz. 70.321926gx; 22.00 BMI Method:Stated General Appearance: mild distress, other (Anxious) HEENT: PERRL/EOMI Neck: non-tender, supple Cardiovascular: regular rate, rhythm Respiratory: lungs clear Extremities: no calf tenderness Psychiatric: oriented x 3 Motor/Sensory: no motor deficit, no sensory deficit Skin: other Progress/Results/Core Measures Results/Orders My Orders Orders - TRISTEN LANDRY DO Ketorolac Injection (Toradol Injection) (08/03/22 04:15) Promethazine Injection (Phenergan Injec (08/03/22 04:15) Diphenhydramine Injection (Benadryl Inje (08/03/22 04:15) Vital Signs/I&O 08/03/22 04:05 Temp 36.9 Pulse 105 Resp 22 B/P (MAP) 123/88 (100) Pulse Ox 100 O2 Delivery Room Air Blood Pressure Mean: 100 Departure Communication (Admissions) Typical migraine headache. No neurologic deficit migraine cocktail given. Recommendations are Home rest, PCP/neurology follow-up Impression Primary Impression: Acute migraine Additional Impression: Anxiety Disposition: 01 HOME, SELF-CARE Condition: Stable Departure-Patient Inst. Decision time for Depature: 04:15 Referrals: SABINA VELOZ MD (PCP/Family) Primary Care Physician Patient Instructions: Headache, Child (DC) Add. Discharge Instructions: You weree evaluated in the emergency department for typical migraine headache. Please go home and rest, and follow-up with your PCP and/or neurologist for further management. All discharge instructions reviewed with patient and/or family. Voiced understanding. TRISTEN LANDRY DO Aug 03, 2022 04:15
[2022-08-03 04:30] VITALS: BP 123/88
== END 2022-08-03 04:30 | disposition home or self-care (01) ==
LOC: EDUNIT# 03:46 → ER FS 03:47
DX: G43.909 Migraine, unspecified, not intractable, without status migrainosus (principal); F41.9 Anxiety disorder, unspecified; Z28.310 Unvaccinated for COVID-19
CPT/HCPCS: 96372; 99284

== ENCOUNTER 2022-08-18 04:05 | Emergency (ER) | payer MEDICARE ==
[2022-08-18] MEDS ORDERED: diphenhydrAMINE 50 MG/ML INJ (BENADRYL) IM STA (04:21)
[2022-08-18] MEDS ORDERED: LORazepam INJ 2 MG/ML (ATIVAN) VIAL IM STA (04:21)
[2022-08-18] MEDS ORDERED: KETOROLAC 30 MG/ML VIAL IM STA (04:21)
[2022-08-18] MEDS ORDERED: PROMETHAZINE INJ 25 MG/ML (PHENERGAN) AMP IM STA (04:21)
--- NOTE | 2022-08-18 04:24 | ED Headache ---
General Chief Complaint: Head/Cervical Problems Stated Complaint: MIGRAINE Nursing Triage Note: Pt complaining of a migraine that started a couple days ago but progressed quickly around 0200 this morning Source: patient History of Present Illness Date Seen by Provider: Aug 18, 2022 Time Seen by Provider: 04:08 Initial Comments 41-year-old female presenting with complaints of headache for the last few days but became much worse around 2 AM this morning. She has been having dry heaves at home. She did see her neurologist on and had Botox injections. She has increased anxiety as she had been referred to psychiatry, cardiology and endocrinology for her anxiety, fainting episodes, hypothyroidism. She had tried her home medications including a new migraine medicine called [facility]. She felt that she had increased tightness all over her head. There is no redness or signs of injection reaction from the Botox. She denies having fever, chills, neck stiffness, change in vision or new weakness or numbness in her arms or legs. She does have light sensitivity which is common with her headaches. Severity/Quality: severe Location: global Prior Headaches/Recent Trauma: frequent headaches, chronic headaches Modifying Factors: worse with exposure to light Associated Symptoms: No confusion, No fatigue, No facial pain, No fever/chills, No flushing, No loss of consciousness; nausea/vomiting; No nasal congestion, No nasal drainage, No numbness in legs/feet, No rash, No seizures, No sinus infection, No stiff neck, No vision changes, No weakness Allergies and Home Medications Allergies Coded Allergies: Sulfa (Sulfonamide Antibiotics) (Verified Allergy, Mild, Itching, 03/14/19) cefuroxime (Verified Allergy, Unknown, 08/21/18) haloperidol (Verified Allergy, Unknown, 10/31/18) magnesium (Verified Allergy, Unknown, 08/21/18) prochlorperazine (Verified Allergy, Unknown, rash, 08/21/18) topiramate (Verified Allergy, Unknown, 08/21/18) tramadol (Verified Allergy, Unknown, 10/31/18) Uncoded Allergies: DHE (Allergy, Unknown, 10/31/18) Patient Home Medication List Home Medication List Reviewed: Yes Bupropion HCl (Bupropion HCl Sr) 150 Mg Tablet.er, (Reported) Entered as Reported by: PARESH KNOTT on 08/22/18 1024 Butalbital/Aspirin/Caffeine (Fiorinal 50-325-40 mg Capsule) 1 Each Capsule, 1 EACH PO TID PRN for Headache Prescribed by: MELANIE CLAYTON on 09/02/19 1856 Butorphanol Tartrate (Butorphanol Tartrate) 25 Mg [place], (Reported) Entered as Reported by: PARESH KNOTT on 08/22/18 1024 Levothyroxine Sodium (Synthroid) 50 Mcg Tablet, (Reported) Entered as Reported by: PARESH KNOTT on 08/22/18 1024 Levothyroxine Sodium (Synthroid) 200 Mcg Tablet, (Reported) Entered as Reported by: PARESH KNOTT on 08/22/18 1024 Lorazepam (Lorazepam) 1 Mg Tablet, (Reported) Entered as Reported by: PARESH KNOTT on 08/22/18 1024 Promethazine HCl (Promethazine HCl) 50 Mg Supp.rect, 50 MG RC Q8H Prescribed by: TRISTEN LANDRY on 11/29/19 1555 Promethazine HCl (Promethazine Tablet) 25 Mg Tablet, 25 MG PO Q6H PRN for headache/nausea Prescribed by: LITA DE SANTIAGO on 03/18/22 1346 Propranolol HCl (Propranolol HCl) 20 Mg Tablet, (Reported) Entered as Reported by: PARESH KNOTT on 08/22/18 1024 Venlafaxine HCl (Venlafaxine HCl ER) 150 Mg Cap.er.24h, (Reported) Entered as Reported by: PARESH KNOTT on 08/22/18 1024 Zolpidem Tartrate (Zolpidem Tartrate) 5 Mg Tablet, (Reported) Entered as Reported by: PARESH KNOTT on 08/22/18 1024 Review of Systems Review of Systems Constitutional: No chills, No fever Eyes: See HPI, Photophobia; Denies Vision Changes Ears, Nose, Mouth, Throat: denies ear pain, denies ear discharge, denies nose pain, denies nose discharge Respiratory: No cough Cardiovascular: No chest pain Gastrointestinal: see HPI Genitourinary: no symptoms reported Musculoskeletal: no symptoms reported Skin: No change in color, No rash Psychiatric/Neurological: Anxiety, Headache Past Csxzrse-Gsceav-Rtqtuy Hx Patient Social History Tobacco Use?: No Use of E-Cig and/or Vaping dev: No Substance use?: No Alcohol Use?: No Pt feels they are or have been: No Immunizations Up To Date First/Initial COVID19 Vaccinat: up to date Second COVID19 Vaccination Francis: up to date Third COVID19 Vaccination Date: up to date Seasonal Allergies Seasonal Allergies: No Past Medical History 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, 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, Hypothyroid Surgeries: Yes 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 Respiratory: No Cardiac: No 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 oz. 70.704139wv; 22.00 BMI Method:Stated General Appearance: mild distress (anxious and tearful) HEENT: PERRL/EOMI, pharynx normal Neck: full range of motion Cardiovascular: normal peripheral pulses, tachycardia Respiratory: chest non-tender, lungs clear, normal breath sounds, no respiratory distress, no accessory muscle use Gastrointestinal: normal bowel sounds, non tender, soft, no pulsatile mass Extremities: normal range of motion, non-tender, normal capillary refill Psychiatric: alert, oriented x 3 [place] Nerves: normal hearing, normal speech, PERRL Coordination/Gait: normal gait Motor/Sensory: no motor deficit, no sensory deficit Skin: normal color, warm/dry Progress/Results/Core Measures Results/Orders My Orders Orders - SUSANA LOPEZ MD Ketorolac Injection (Toradol Injection) (08/18/22 04:21) Diphenhydramine Injection (Benadryl Inje (08/18/22 04:21) Promethazine Injection (Phenergan Injec (08/18/22 04:21) Lorazepam Injection (Ativan Injection) (08/18/22 04:21) Vital Signs/I&O 08/18/22 04:08 Pulse 114 Resp 18 B/P (MAP) 134/94 (107) Pulse Ox 99 O2 Delivery Room Air Blood Pressure Mean: 107 Progress Progress Note : Progress Note Patient has potential diagnosis of migraine headache, medication reaction, anxiety, stroke, electrolyte imbalance. She has no new neurologic deficit. She had tried her home routine medicines without any significant improvement. She does have a large anxiety component tonight as well. She had her mother bring her to the ED as her is out of town and her daughter is dog sitting so her main family support is not immediately available. Will administer Migraine cocktail like she usually responds to in the past. Toradol 30 mg IM for pain and inflammation, diphenhydramine 25 mg IM for her migraine symptoms as well as nausea and sedation effect, promethazine 25 mg IM for nausea and vomiting, lorazepam 2 mg IM for anxiety. She has had all of these medicines in the past with improvement of her migraines. Encouraged to rest in a cool dark room and continue her home medications. Follow-up with her regular providers for continued concerns. Departure Impression Primary Impression: Migraine headache without aura Qualified Codes: G43.009 - Migraine without aura, not intractable, without status migrainosus Additional Impression: Anxiety Disposition: 01 HOME, SELF-CARE Condition: Stable Departure-Patient Inst. Decision time for Depature: 04:24 Referrals: SABINA VELOZ MD (PCP/Family) Primary Care Physician Patient Instructions: Migraines in Adults Add. Discharge Instructions: Try to rest in a cool dark room. Continue on your home medications. Follow up with your neurologist and primary care for continued concerns. All discharge instructions reviewed with patient and/or family. Voiced understanding. SUSANA LOPEZ MD Aug 18, 2022 04:24
[2022-08-18 04:35] VITALS: BP 134/94
== END 2022-08-18 04:36 | disposition home or self-care (01) ==
LOC: EDUNIT# 04:05 → ER FS 04:06
DX: G43.009 Migraine without aura, not intractable, without status migrainosus (principal); F41.9 Anxiety disorder, unspecified; Z28.310 Unvaccinated for COVID-19
CPT/HCPCS: 99284

== ENCOUNTER 2022-08-21 23:20 | Emergency (ER) | payer MEDICARE ==
[~2022-08-21] VITALS: Ht 170.1 cm; Wt 73.3 kg
[2022-08-21 23:21] VITALS: BP 128/64
[2022-08-21] MEDS ORDERED: KETOROLAC 15 MG/ML VIAL IM ONE (23:30)
[2022-08-21] MEDS ORDERED: diphenhydrAMINE 50 MG/ML INJ (BENADRYL) IM ONE (23:30)
[2022-08-21] MEDS ORDERED: PROMETHAZINE INJ 25 MG/ML (PHENERGAN) AMP IM/IV ONE (23:30)
--- NOTE | 2022-08-21 23:36 | ED Headache ---
General Chief Complaint: Head/Cervical Problems Stated Complaint: MIGRIANE Nursing Triage Note: Patient has a history of migraine headaches. Patient reports that this started this evening. Patient took her medications with no relief. Source: patient Exam Limitations: no limitations History of Present Illness Date Seen by Provider: Aug 21, 2022 Time Seen by Provider: 23:15 Initial Comments Patient is a 41-year-old chronic migraines who presents with typical migraine headache starting this evening. Patient took Zofran, Excedrin triptan without relief. Reports nausea without vomiting. Headache is retro-orbital moderate to severe associated light and sound sensitivity. No fever neck stiffness. This is not the worst headache of the patient's life. Timing/Duration: 1-3 hours Severity/Quality: other Location: other Prior Headaches/Recent Trauma: other Modifying Factors: improves with other Associated Symptoms: other Allergies and Home Medications Allergies Coded Allergies: Sulfa (Sulfonamide Antibiotics) (Verified Allergy, Mild, Itching, 03/14/19) cefuroxime (Verified Allergy, Unknown, 08/21/18) haloperidol (Verified Allergy, Unknown, 10/31/18) magnesium (Verified Allergy, Unknown, 08/21/18) prochlorperazine (Verified Allergy, Unknown, rash, 08/21/18) topiramate (Verified Allergy, Unknown, 08/21/18) tramadol (Verified Allergy, Unknown, 10/31/18) Uncoded Allergies: DHE (Allergy, Unknown, 10/31/18) Patient Home Medication List Home Medication List Reviewed: Yes Bupropion HCl (Bupropion HCl Sr) 150 Mg Tablet.er, (Reported) Entered as Reported by: PARESH KNOTT on 08/22/18 1024 Butalbital/Aspirin/Caffeine (Fiorinal 50-325-40 mg Capsule) 1 Each Capsule, 1 EACH PO TID PRN for Headache Prescribed by: MELANIE CLAYTON on 09/02/19 1856 Butorphanol Tartrate (Butorphanol Tartrate) 25 Mg [place], (Reported) Entered as Reported by: PARESH KNOTT on 08/22/18 1024 Levothyroxine Sodium (Synthroid) 50 Mcg Tablet, (Reported) Entered as Reported by: PARESH KNOTT on 08/22/18 1024 Levothyroxine Sodium (Synthroid) 200 Mcg Tablet, (Reported) Entered as Reported by: PARESH KNOTT on 08/22/18 1024 Lorazepam (Lorazepam) 1 Mg Tablet, (Reported) Entered as Reported by: PARESH KNOTT on 08/22/18 1024 Promethazine HCl (Promethazine HCl) 50 Mg Supp.rect, 50 MG RC Q8H Prescribed by: TRISTEN LANDRY on 11/29/19 1555 Promethazine HCl (Promethazine Tablet) 25 Mg Tablet, 25 MG PO Q6H PRN for headache/nausea Prescribed by: LITA DE SANTIAGO on 03/18/22 1346 Propranolol HCl (Propranolol HCl) 20 Mg Tablet, (Reported) Entered as Reported by: PARESH KNOTT on 08/22/18 1024 Venlafaxine HCl (Venlafaxine HCl ER) 150 Mg Cap.er.24h, (Reported) Entered as Reported by: PARESH KNOTT on 08/22/18 1024 Zolpidem Tartrate (Zolpidem Tartrate) 5 Mg Tablet, (Reported) Entered as Reported by: PARESH KNOTT on 08/22/18 1024 Review of Systems Review of Systems Constitutional: see HPI Eyes: See HPI Ears, Nose, Mouth, Throat: see HPI Respiratory: see HPI Cardiovascular: see HPI Genitourinary: see HPI Musculoskeletal: see HPI Past Gdzkutj-Faacoo-Uilcdw Hx Patient Social History Tobacco Use?: No Substance use?: No Pt feels they are or have been: No Immunizations Up To Date First/Initial COVID19 Vaccinat: up to date Second COVID19 Vaccination Francis: up to date Third COVID19 Vaccination Date: up to date Seasonal Allergies Seasonal Allergies: No Past Medical History 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, 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, Hypothyroid Surgeries: Yes 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 Respiratory: No Cardiac: No Neurological: 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 oz. 70.807124rz; 25.00 BMI Method:Stated General Appearance: WD/WN, no apparent distress HEENT: PERRL/EOMI, normal ENT inspection Cardiovascular: regular rate, rhythm Respiratory: lungs clear Psychiatric: alert, oriented x 3 Motor/Sensory: no motor deficit, no sensory deficit Progress/Results/Core Measures Results/Orders My Orders Orders - TRISTEN LANDRY DO Promethazine Injection (Phenergan Injec (08/21/22 23:30) Ketorolac Injection (Toradol Injection) (08/21/22 23:30) Diphenhydramine Injection (Benadryl Inje (08/21/22 23:30) Vital Signs/I&O 08/21/22 23:21 Temp 37.0 Pulse 117 Resp 18 B/P (MAP) 128/64 (85) Pulse Ox 95 O2 Delivery Room Air Blood Pressure Mean: 85 Departure Communication (Admissions) Chronic migraines without neurologic deficits. Typical migraine given with clinical improvement. Recommendations are supportive care with neurology follow-up. Impression Primary Impression: Migraine Disposition: 01 HOME, SELF-CARE Condition: Stable Departure-Patient Inst. Decision time for Depature: 23:35 Referrals: SABINA VELOZ MD (PCP/Family) Primary Care Physician Patient Instructions: Migraines in Adults Add. Discharge Instructions: Please go home and rest increase fluids, continue home meds and follow-up with your PCP and/or neurologist for further management All discharge instructions reviewed with patient and/or family. Voiced understanding. TRISTEN LANDRY DO Aug 21, 2022 23:36
== END 2022-08-21 23:42 | disposition home or self-care (01) ==
LOC: EDUNIT# 23:20 → ER FS 23:21
DX: G43.909 Migraine, unspecified, not intractable, without status migrainosus (principal)
CPT/HCPCS: 99284

== ENCOUNTER 2022-09-25 03:29 | Emergency (ER) | payer MEDICARE ==
[~2022-09-25] VITALS: Ht 170.1 cm; Wt 73.3 kg
[2022-09-25] MEDS ORDERED: diphenhydrAMINE 50 MG/ML INJ (BENADRYL) IM ONE (03:45)
[2022-09-25] MEDS ORDERED: KETOROLAC 30 MG/ML VIAL IM ONE (03:45)
--- NOTE | 2022-09-25 03:54 | ED Headache ---
General Chief Complaint: Head/Cervical Problems Stated Complaint: HEADACHE History of Present Illness Date Seen by Provider: Sep 25, 2022 Time Seen by Provider: 03:41 Initial Comments 41-year-old female with PMH of migraine, is here with complaints of migraine with aura today. Patient has associated symptoms of nausea and vomiting, photophobia. Patient took Excedrin, Zofran,, intranasal Stadol at home without much relief. Denies blurry vision, neck pain or neck stiffness, fever and chills. Allergies and Home Medications Allergies Coded Allergies: Sulfa (Sulfonamide Antibiotics) (Verified Allergy, Mild, Itching, 03/14/19) cefuroxime (Verified Allergy, Unknown, 08/21/18) haloperidol (Verified Allergy, Unknown, 10/31/18) magnesium (Verified Allergy, Unknown, 08/21/18) topiramate (Verified Allergy, Unknown, 08/21/18) tramadol (Verified Allergy, Unknown, 10/31/18) Uncoded Allergies: DHE (Allergy, Unknown, 10/31/18) Patient Home Medication List Home Medication List Reviewed: Yes Bupropion HCl (Bupropion HCl Sr) 150 Mg Tablet.er, (Reported) Entered as Reported by: PARESH KNOTT on 08/22/18 1024 Butalbital/Aspirin/Caffeine (Fiorinal 50-325-40 mg Capsule) 1 Each Capsule, 1 EACH PO TID PRN for Headache Prescribed by: MELANIE CLAYTON on 09/02/19 1856 Butorphanol Tartrate (Butorphanol Tartrate) 25 Mg Virgie, (Reported) Entered as Reported by: PARESH KNOTT on 08/22/18 1024 Levothyroxine Sodium (Synthroid) 50 Mcg Tablet, (Reported) Entered as Reported by: PARESH KONTT on 08/22/18 1024 Levothyroxine Sodium (Synthroid) 200 Mcg Tablet, (Reported) Entered as Reported by: PARESH KNOTT on 08/22/18 1024 Lorazepam (Lorazepam) 1 Mg Tablet, (Reported) Entered as Reported by: PARESH KNOTT on 08/22/18 1024 Promethazine HCl (Promethazine HCl) 50 Mg Supp.rect, 50 MG RC Q8H Prescribed by: TRISTEN LANDRY on 11/29/19 1555 Promethazine HCl (Promethazine Tablet) 25 Mg Tablet, 25 MG PO Q6H PRN for headache/nausea Prescribed by: LITA DE SANTIAGO on 03/18/22 1346 Propranolol HCl (Propranolol HCl) 20 Mg Tablet, (Reported) Entered as Reported by: PARESH KNOTT on 08/22/18 1024 Venlafaxine HCl (Venlafaxine HCl ER) 150 Mg Cap.er.24h, (Reported) Entered as Reported by: PARESH KNOTT on 08/22/18 1024 Zolpidem Tartrate (Zolpidem Tartrate) 5 Mg Tablet, (Reported) Entered as Reported by: PARESH KNOTT on 08/22/18 1024 Review of Systems Review of Systems Constitutional: no symptoms reported Eyes: No Symptoms Reported Ears, Nose, Mouth, Throat: see HPI Respiratory: no symptoms reported Cardiovascular: no symptoms reported Gastrointestinal: no symptoms reported, nausea Genitourinary: no symptoms reported Musculoskeletal: no symptoms reported Skin: no symptoms reported Psychiatric/Neurological: Headache Past Mhebted-Jzibnn-Jyoofe Hx Patient Social History Tobacco Use?: No Substance use?: No Alcohol Use?: No Immunizations Up To Date First/Initial COVID19 Vaccinat: up to date Second COVID19 Vaccination Francis: up to date Third COVID19 Vaccination Date: up to date Seasonal Allergies Seasonal Allergies: No Past Medical History 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, 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 oz. 70.608273ca; 25.00 BMI Method:Stated General Appearance: WD/WN, no apparent distress HEENT: PERRL/EOMI Neck: non-tender, full range of motion, supple, normal inspection Cardiovascular: regular rate, rhythm Respiratory: chest non-tender, lungs clear Gastrointestinal: non tender, soft Extremities: normal range of motion Psychiatric: alert, oriented x 3 Crainal Nerves: normal hearing, normal speech, PERRL Motor/Sensory: no motor deficit, no sensory deficit Skin: normal color Progress/Results/Core Measures Results/Orders My Orders Orders - ESTEFANY HOROWITZ MD Ketorolac Injection (Toradol Injection) (09/25/22 03:45) Diphenhydramine Injection (Benadryl Inje (09/25/22 03:45) Promethazine Injection (Phenergan Injec (09/25/22 04:00) Progress Progress Note : Progress Note MIGRAINE HEADACHE: - Toradol im/ Phenergan im/ Benadryl im STAT in ER -Advised adequate hydration to prevent headaches -Follow-up with neurology as advised at last ER visit in July. -The patient was seen in the ED, and treated appropriately to presentation at a specific point in time. Patient is informed that there is a possibility that disease and illness can evolve and change in acuity rapidly or slowly after patient is discharged from the ER. Precautionary advice given to the patient for immediate return to ER if symptoms worsen or do not resolve, and to seek emergency care sooner rather than later. Pt also advised on the importance of PCP follow up and compliance with management and follow up plan with PCP and/or specialist, as this is part of the management plan. Pt verbally expressed understanding. Departure Impression Primary Impression: Migraine with aura Disposition: 01 HOME, SELF-CARE Condition: Improved Departure-Patient Inst. Referrals: SABINA VELOZ MD (PCP/Family) Primary Care Physician Patient Instructions: Migraines (DC), How to Keep Track of Your Headaches, Home Headache Remedies, Migraines in Adults Add. Discharge Instructions: -Advised adequate hydration to prevent headaches -Follow-up with neurology as advised at last ER visit in July. All discharge instructions reviewed with patient and/or family. Voiced understanding. ESTEFANY HOROWITZ MD Sep 25, 2022 03:54
[2022-09-25] MEDS ORDERED: PROMETHAZINE INJ 25 MG/ML (PHENERGAN) AMP IM ONE (04:00)
[2022-09-25 04:08] VITALS: BP 133/65
== END 2022-09-25 04:08 | disposition home or self-care (01) ==
LOC: EDUNIT# 03:29 → ER FS 03:32
DX: G43.109 Migraine with aura, not intractable, without status migrainosus (principal)
CPT/HCPCS: 99284

== ENCOUNTER 2022-10-17 19:04 | Emergency (ER) | payer MEDICARE ==
[~2022-10-17] VITALS: Ht 170.1 cm; Wt 68.0 kg
[2022-10-17] MEDS ORDERED: PROCHLORPERAZINE 10 MG/2ML INJ (COMPAZINE) IM ONE (19:45)
[2022-10-17] MEDS ORDERED: KETOROLAC 60 MG/2 ML VIAL IM ONE (19:45)
[2022-10-17] MEDS ORDERED: diphenhydrAMINE 50 MG/ML INJ (BENADRYL) IM ONE (19:45)
--- NOTE | 2022-10-17 19:50 | ED Headache ---
General Chief Complaint: Head/Cervical Problems Stated Complaint: MIGRAINE Source: patient, family Exam Limitations: no limitations History of Present Illness Date Seen by Provider: Oct 17, 2022 Time Seen by Provider: 19:39 Initial Comments 41 yo F here for migraine GROSSMAN. This is typical for her usual Migraines. Symptoms since this weekend. Associated with nausea and vomiting. All other systems reviewed and negative except documented per HPI. Voice recognition software was used to help create this chart Allergies and Home Medications Allergies Coded Allergies: Sulfa (Sulfonamide Antibiotics) (Verified Allergy, Mild, Itching, 03/14/19) cefuroxime (Verified Allergy, Unknown, 08/21/18) haloperidol (Verified Allergy, Unknown, 10/31/18) magnesium (Verified Allergy, Unknown, 08/21/18) topiramate (Verified Allergy, Unknown, 08/21/18) tramadol (Verified Allergy, Unknown, 10/31/18) Uncoded Allergies: DHE (Allergy, Unknown, 10/31/18) Patient Home Medication List Home Medication List Reviewed: Yes Bupropion HCl (Bupropion HCl Sr) 150 Mg Tablet.er, (Reported) Entered as Reported by: PARESH KNOTT on 08/22/18 1024 Butalbital/Aspirin/Caffeine (Fiorinal 50-325-40 mg Capsule) 1 Each Capsule, 1 EACH PO TID PRN for Headache Prescribed by: MELANIE CLAYTON on 09/02/19 1856 Butorphanol Tartrate (Butorphanol Tartrate) 25 Mg Brilliant, (Reported) Entered as Reported by: PARESH KNOTT on 08/22/18 1024 Levothyroxine Sodium (Synthroid) 50 Mcg Tablet, (Reported) Entered as Reported by: PARESH KNOTT on 08/22/18 1024 Levothyroxine Sodium (Synthroid) 200 Mcg Tablet, (Reported) Entered as Reported by: PARESH KNOTT on 08/22/18 1024 Lorazepam (Lorazepam) 1 Mg Tablet, (Reported) Entered as Reported by: PARESH KNOTT on 08/22/18 1024 Promethazine HCl (Promethazine HCl) 50 Mg Supp.rect, 50 MG RC Q8H Prescribed by: TRISTEN LANDRY on 11/29/19 1555 Promethazine HCl (Promethazine Tablet) 25 Mg Tablet, 25 MG PO Q6H PRN for headache/nausea Prescribed by: LITA DE SANTIAGO on 03/18/22 1346 Propranolol HCl (Propranolol HCl) 20 Mg Tablet, (Reported) Entered as Reported by: PARESH KNOTT on 08/22/18 1024 Venlafaxine HCl (Venlafaxine HCl ER) 150 Mg Cap.er.24h, (Reported) Entered as Reported by: PARESH KNOTT on 08/22/18 1024 Zolpidem Tartrate (Zolpidem Tartrate) 5 Mg Tablet, (Reported) Entered as Reported by: PARESH KNOTT on 08/22/18 1024 Review of Systems Review of Systems Constitutional: see HPI Past Tsfwyhu-Vgqhxi-Popfpg Hx Patient Social History Tobacco Use?: No Use of E-Cig and/or Vaping dev: No Substance use?: No Alcohol Use?: No Immunizations Up To Date First/Initial COVID19 Vaccinat: up to date Second COVID19 Vaccination Francis: up to date Third COVID19 Vaccination Date: up to date Seasonal Allergies Seasonal Allergies: No Past Medical History 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, 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, Hypothyroid Surgeries: Yes 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 Respiratory: No Cardiac: No 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 oz. 70.231880hn; 25.00 BMI Method:Stated General Appearance: WD/WN, no apparent distress HEENT: PERRL/EOMI, normal ENT inspection, pharynx normal Neck: non-tender, supple, normal inspection Cardiovascular: regular rate, rhythm, no murmur Respiratory: chest non-tender, lungs clear, normal breath sounds, no respiratory distress, no accessory muscle use Gastrointestinal: normal bowel sounds, non tender, soft Psychiatric: alert, oriented x 3 Crainal Nerves: normal speech, PERRL Coordination/Gait: normal finger to nose Motor/Sensory: no motor deficit, no sensory deficit Skin: normal color, warm/dry Progress/Results/Core Measures Results/Orders My Orders Orders - PATRICIA ROBERTSON DO Prochlorperazine Injection (Compazine In (10/17/22 19:45) Diphenhydramine Injection (Benadryl Inje (10/17/22 19:45) Ketorolac Injection (Toradol Injection) (10/17/22 19:45) Promethazine Injection (Phenergan Injec (10/17/22 20:15) Vital Signs/I&O 10/17/22 19:28 Temp 36.5 Pulse 123 Resp 14 B/P (MAP) 124/81 (95) Pulse Ox 98 O2 Delivery Room Air Departure Communication (Admissions) Patient is hemodynamically stable. She has a migraine that is typical for her without any abnormal other symptoms. She is given Phenergan, Benadryl and Toradol and discharged in stable condition. Impression Primary Impression: Acute migraine Disposition: 01 HOME, SELF-CARE Condition: Stable Departure-Patient Inst. Referrals: SABINA VELOZ MD (PCP/Family) Primary Care Physician Add. Discharge Instructions: Use home medications as previously prescribed. Return to the emergency department for any severe concerns. All discharge instructions reviewed with patient and/or family. Voiced understanding. PATRICIA ROBERTSON DO Oct 17, 2022 19:50
[2022-10-17] MEDS ORDERED: PROMETHAZINE INJ 25 MG/ML (PHENERGAN) AMP ONE (20:05)
[2022-10-17 20:13] VITALS: BP 114/78
[2022-10-17] MEDS ORDERED: PROMETHAZINE INJ 25 MG/ML (PHENERGAN) AMP IM ONE (20:15)
== END 2022-10-17 20:14 | disposition home or self-care (01) ==
LOC: EDUNIT# 19:04 → ER FS 19:05
DX: G43.909 Migraine, unspecified, not intractable, without status migrainosus (principal)
CPT/HCPCS: 99284

== ENCOUNTER 2022-10-27 23:36 | Emergency (ER) | payer MEDICARE ==
--- NOTE | 2022-10-27 23:54 | ED Headache ---
General Chief Complaint: Head/Cervical Problems Stated Complaint: MIGRAIN Nursing Triage Note: Pt complaining of a migraine that started last night Source: patient Exam Limitations: no limitations History of Present Illness Date Seen by Provider: October 27, 2022 Time Seen by Provider: 23:40 Initial Comments 41-year-old female with past medical history of migraines coming in due to what she states is a migraine headache. This wound started yesterday, starts in her left trap going up the back of her head. This is typically where she feels them. She states this is because she is due for her Botox again. Denies any fever, vomiting, diarrhea, weakness, numbness, vision changes, or any other co ncerns. Of note, her son's promise tomorrow, and she wants to make sure she is headache free before that. Allergies and Home Medications Allergies Coded Allergies: Sulfa (Sulfonamide Antibiotics) (Verified Allergy, Mild, Itching, 03/14/19) cefuroxime (Verified Allergy, Unknown, 08/21/18) haloperidol (Verified Allergy, Unknown, 10/31/18) magnesium (Verified Allergy, Unknown, 08/21/18) topiramate (Verified Allergy, Unknown, 08/21/18) tramadol (Verified Allergy, Unknown, 10/31/18) Uncoded Allergies: DHE (Allergy, Unknown, 10/31/18) Patient Home Medication List Home Medication List Reviewed: Yes Bupropion HCl (Bupropion HCl Sr) 150 Mg Tablet.er, (Reported) Entered as Reported by: PARESH KNOTT on 08/22/18 1024 Butalbital/Aspirin/Caffeine (Fiorinal 50-325-40 mg Capsule) 1 Each Capsule, 1 EACH PO TID PRN for Headache Prescribed by: MELANIE CLAYTON on 09/02/19 1856 Butorphanol Tartrate (Butorphanol Tartrate) 25 Mg Charlotte, (Reported) Entered as Reported by: PARESH KNOTT on 08/22/18 1024 Levothyroxine Sodium (Synthroid) 50 Mcg Tablet, (Reported) Entered as Reported by: PARESH KNOTT on 08/22/18 1024 Levothyroxine Sodium (Synthroid) 200 Mcg Tablet, (Reported) Entered as Reported by: PARESH KNOTT on 08/22/18 1024 Lorazepam (Lorazepam) 1 Mg Tablet, (Reported) Entered as Reported by: PARESH KNOTT on 08/22/18 1024 Promethazine HCl (Promethazine HCl) 50 Mg Supp.rect, 50 MG RC Q8H Prescribed by: TRISTEN LANDRY on 11/29/19 1555 Promethazine HCl (Promethazine Tablet) 25 Mg Tablet, 25 MG PO Q6H PRN for head ache/nausea Prescribed by: ILTA DE SANTIAGO on 03/18/22 1346 Propranolol HCl (Propranolol HCl) 20 Mg Tablet, (Reported) Entered as Reported by: PARESH KNOTT on 08/22/18 1024 Venlafaxine HCl (Venlafaxine HCl ER) 150 Mg Cap.er.24h, (Reported) Entered as Reported by: PARESH KNOTT on 08/22/18 1024 Zolpidem Tartrate (Zolpidem Tartrate) 5 Mg Tablet, (Reported) Entered as Reported by: PARESH KNOTT on 08/22/18 1024 Review of Systems Review of Systems Constitutional: No fever Eyes: No Symptoms Reported Ears, Nose, Mouth, Throat: see HPI Respiratory: no symptoms reported Cardiovascular: no symptoms reported Gastrointestinal: no symptoms reported Genitourinary: no symptoms reported Musculoskeletal: no symptoms reported Skin: no symptoms reported Psychiatric/Neurological: See HPI Past [place]-Usfncj-Dbxmfo Hx Patient Social History Tobacco Use?: No Use of E-Cig and/or Vaping dev: No Substance use?: No Alcohol Use?: No Pt feels they are or have been: No Immunizations Up To Date First/Initial COVID19 Vaccinat: up to date Second COVID19 Vaccination Francis: up to date Third COVID19 Vaccination Date: up to date Seasonal Allergies Seasonal Allergies: No Past Medical History 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, 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, Hypothyroid Surgeries: Yes Hysterectomy Respiratory: No Cardiac: No Neurological: 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 oz. 70.727733il; 23.00 BMI Method:Stated General Appearance: WD/WN, no apparent distress HEENT: PERRL/EOMI, normal ENT inspection, pharynx normal Neck: non-tender, full range of motion, supple, normal inspection Cardiovascular: regular rate, rhythm, no edema, no murmur Respiratory: chest non-tender, lungs clear, normal breath sounds, no respiratory distress, no accessory muscle use Gastrointestinal: normal bowel sounds, non tender, soft; No distended, No guarding Extremities: normal range of motion, non-tender, normal inspection, no pedal edema, no calf tenderness, normal capillary refill Psychiatric: alert, oriented x 3 Crainal Nerves: normal hearing, normal speech, PERRL Coordination/Gait: normal gait Motor/Sensory: no motor deficit, no sensory deficit Skin: normal color, warm/dry Progress/Results/Core Measures Results/Orders My Orders Orders - LITA DE SANTIAGO MD Promethazine Injection (Phenergan Injec (10/28/22 00:00) Ketorolac Injection (Toradol Injection) (10/28/22 00:00) Diphenhydramine Injection (Benadryl Inje (10/28/22 00:00) Vital Signs/I&O 10/27/22 23:40 Pulse 98 Resp 16 B/P (MAP) 137/66 (89) Pulse Ox 100 O2 Delivery Room Air Blood Pressure Mean: 89 Progress Progress Note : Progress Note 41-year-old female with above history coming in due to what she states is a migraine headache. ABCs were intact and vitals were stable on presentation, s pecifically she has neuro intact. She has no red flags, particularly no weakness, no numbness, no vision changes, no neck meningismus, no fever, no trauma to her head, does not take blood thinners, and overall this feels similar to her typical migraines that she gets essentially every other day. She was given IM Phenergan, Benadryl, and Toradol. I believe she is stable for disch arge with outpatient follow-up. She was sent home with strict return precautions Departure Impression Primary Impression: Migraine headache without aura Qualified Codes: G43.001 - Migraine without aura, not intractable, with status migrainosus Disposition: HOME, SELF-CARE Condition: Stable Departure-Patient Inst. Decision time for Depature: 00:00 Referrals: SABINA VELOZ MD (PCP/Family) Primary Care Physician Patient Instructions: Headache, Adult (DC) Add. Discharge Instructions: Continue to take ibuprofen or Tylenol as needed for headaches. Please follow back up with your neurologist as scheduled for your Botox. Work/School Note: Family Work Note, Patient Received Medical Care In the Emergency Department On: October 27, 2022 Patient Will Be Able to Return to Work/School On: October 29, 2022 Work Release Form Date Seen in the Emergency Department: October 27, 2022 Return to Work: October 29, 2022 Restrictions: No Restrictions LITA DE SANTIAGO MD October 27, 2022 23:54
[2022-10-28] MEDS ORDERED: KETOROLAC 15 MG/ML VIAL IM ONE
[2022-10-28] MEDS ORDERED: diphenhydrAMINE 50 MG/ML INJ (BENADRYL) IM ONE
[2022-10-28] MEDS ORDERED: PROMETHAZINE INJ 25 MG/ML (PHENERGAN) AMP IM ONE
[2022-10-28 00:08] VITALS: BP 137/66
== END 2022-10-28 00:09 | disposition home or self-care (01) ==
LOC: EDUNIT# 23:36 → ER FS 23:39
DX: G43.009 Migraine without aura, not intractable, without status migrainosus (principal); Z28.310 Unvaccinated for COVID-19
CPT/HCPCS: 99284

== ENCOUNTER 2022-11-10 04:24 | Emergency (ER) | payer MEDICARE ==
--- NOTE | 2022-11-10 04:57 | ED Headache ---
General Chief Complaint: Head/Cervical Problems Stated Complaint: MIGRAINE Nursing Triage Note: Pt complaining of a migraine that started yesterday afternoon Source: patient Exam Limitations: no limitations History of Present Illness Date Seen by Provider: November 10, 2022 Time Seen by Provider: 04:45 Initial Comments This 41-year-old young lady presents to the emergency room with migraine headache for about the past 24 hours. She has accompanying nausea, vomiting, and dizziness. She took Excedrin Migraine, Zofran, and Flexeril. She added Benadryl 25 mg about midnight. She then started vomiting. She complains of intermittent tachycardia. She last had labs checked at an outside facility in September. She reports having a pending cardiology referral. She has an extensive history of ER visits related to migraine. She has had approximately 75 visits here since 2019. No labs have been obtained here since January of 2020. She is reluctant to have any labs or IV attempted as she has very poor vascular access. She talks of potentially having a port placed in the near future. She reports having significant thyroid dysregulation in the recent past which is being monitored by Dr. Veloz. She is about due for her routine Botox injections for migraine treatment. Allergies and Home Medications Allergies Coded Allergies: Sulfa (Sulfonamide Antibiotics) (Verified Allergy, Mild, Itching, 03/14/19) cefuroxime (Verified Allergy, Unknown, 08/21/18) haloperidol (Verified Allergy, Unknown, 10/31/18) magnesium (Verified Allergy, Unknown, 08/21/18) topiramate (Verified Allergy, Unknown, 08/21/18) tramadol (Verified Allergy, Unknown, 10/31/18) Uncoded Allergies: DHE (Allergy, Unknown, 10/31/18) Patient Home Medication List Home Medication List Reviewed: Yes Bupropion HCl (Bupropion HCl Sr) 150 Mg Tablet.er, (Reported) Entered as Reported by: PARESH KNOTT on 08/22/18 1024 Butalbital/Aspirin/Caffeine (Fiorinal 50-325-40 mg Capsule) 1 Each Capsule, 1 EACH PO TID PRN for Headache Prescribed by: MELANIE CLAYTON on 09/02/19 1856 Butorphanol Tartrate (Butorphanol Tartrate) 25 Mg [place], (Reported) Entered as Reported by: PARESH KNOTT on 08/22/18 1024 Levothyroxine Sodium (Synthroid) 50 Mcg Tablet, (Reported) Entered as Reported by: PARESH KNOTT on 08/22/18 1024 Levothyroxine Sodium (Synthroid) 200 Mcg Tablet, (Reported) Entered as Reported by: PARESH KNOTT on 08/22/18 1024 Lorazepam (Lorazepam) 1 Mg Tablet, (Reported) Entered as Reported by: PARESH KNOTT on 08/22/18 1024 Promethazine HCl (Promethazine HCl) 50 Mg Supp.rect, 50 MG RC Q8H Prescribed by: TRISTEN LANDRY on 11/29/19 1555 Promethazine HCl (Promethazine Tablet) 25 Mg Tablet, 25 MG PO Q6H PRN for headache/nausea Prescribed by: LITA DE SANTIAGO on 03/18/22 1346 Propranolol HCl (Propranolol HCl) 20 Mg Tablet, (Reported) Entered as Reported by: PARESH KNOTT on 08/22/18 1024 Venlafaxine HCl (Venlafaxine HCl ER) 150 Mg Cap.er.24h, (Reported) Entered as Reported by: PARESH KNOTT on 08/22/18 1024 Zolpidem Tartrate (Zolpidem Tartrate) 5 Mg Tablet, (Reported) Entered as Reported by: PARESH KNOTT on 08/22/18 1024 Review of Systems Review of Systems Constitutional: no symptoms reported Eyes: Other (Light sensitivity) Ears, Nose, Mouth, Throat: no symptoms reported Respiratory: no symptoms reported Cardiovascular: see HPI Gastrointestinal: see HPI Genitourinary: no symptoms reported : No Musculoskeletal: no symptoms reported Skin: no symptoms reported Psychiatric/Neurological: See HPI Past Jjnewvy-Lgvhik-Wbumum Hx Patient Social History Tobacco Use?: No Use of E-Cig and/or Vaping dev: No Substance use?: No Alcohol Use?: No Pt feels they are or have been: No Immunizations Up To Date First/Initial COVID19 Vaccinat: up to date Second COVID19 Vaccination Francis: up to date Third COVID19 Vaccination Date: up to date Seasonal Allergies Seasonal Allergies: No Past Medical History 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, 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, 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 Surgeries: Yes Hysterectomy Respiratory: No Cardiac: No Neurological: Yes 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 oz. 70.737994qu; 23.00 BMI Method:Stated General Appearance: WD/WN, mild distress (Anxious) HEENT: PERRL/EOMI, normal ENT inspection, other (Oropharynx dry) Neck: normal inspection Cardiovascular: regular rate, rhythm, no murmur Respiratory: lungs clear, normal breath sounds, no respiratory distress Gastrointestinal: No distended Extremities: normal inspection, no pedal edema Psychiatric: alert, oriented x 3, other (Very anxious, tearful) Crainal Nerves: PERRL Motor/Sensory: no motor deficit, no sensory deficit Skin: normal color, warm/dry Progress/Results/Core Measures Results/Orders My Orders Orders - PEÑA MONTANEZ MD Ekg Tracing (11/10/22 04:50) Monitor-Rhythm Ecg Trace Only (11/10/22 04:50) Promethazine Injection (Phenergan Injec (11/10/22 05:15) Diphenhydramine Injection (Benadryl Inje (11/10/22 05:15) Ketorolac Injection (Toradol Injection) (11/10/22 05:15) Vital Signs/I&O 11/10/22 04:31 Temp 37.7 Pulse 78 Resp 16 B/P (MAP) 128/75 (92) Pulse Ox 100 O2 Delivery Room Air Blood Pressure Mean: 92 Progress Progress Note : Progress Note IV attempts failed. Labs and IV medications were canceled. IM medications are being administered. EKG demonstrated sinus tachycardia but was otherwise unremarkable by my interpretation. Patient was discharged in improved condition. Encourage patient to have the port established. If we are to be treating her migraines frequently with these medications, we should be able to obtain labs routinely and provide IV fluids if necessary. I also encouraged her to obtain access to her outpatient labs and have those readily available for us in the emergency room on follow-up visits. Initial ECG Impression Date: November 10, 2022 Initial ECG Impression Time: 04:51 Initial ECG Rate: 111 Initial ECG Rhythm: S.Tach Initial ECG Intervals: Normal Initial ECG Impression: Normal Comment Sinus tachycardia with no ST elevation or depression. No abnormal intervals or axis deviation. Departure Impression Primary Impression: Acute migraine Additional Impressions: Nausea and vomiting Qualified Codes: R11.2 - Nausea with vomiting, unspecified Problem with vascular access Hypothyroidism Qualified Codes: E03.9 - Hypothyroidism, unspecified Disposition: 01 HOME, SELF-CARE Condition: Improved Departure-Patient Inst. Decision time for Depature: 05:30 Referrals: SABINA VELOZ MD (PCP/Family) Primary Care Physician Patient Instructions: Migraines in Adults Add. Discharge Instructions: Rest in a quiet, calm, dark environment for the remainder of the morning. Drink plenty of clear liquids to stay well-hydrated. Continue therapies as previously directed by your neurologist and follow-up with your neurologist as soon as possible. Follow through with pursuing port placement as this will be an important aspect of your care and healthcare monitoring in future visits. Return to care if you have worsening symptoms. All discharge instructions reviewed with patient and/or family. Voiced understanding. Copy Copies To 1: SABINA VELOZ MD, JOSHUA T MD November 10, 2022 04:57
[2022-11-10] MEDS ORDERED: diphenhydrAMINE 50 MG/ML INJ (BENADRYL) IVP ONE (05:00)
[2022-11-10] MEDS ORDERED: PROMETHAZINE INJ 25 MG/ML (PHENERGAN) AMP IVP ONE (05:00)
[2022-11-10] MEDS ORDERED: LACTATED RINGERS 1,000 ML IV ONE (05:00)
[2022-11-10] MEDS ORDERED: KETOROLAC 30 MG/ML VIAL IVP ONE (05:00)
[2022-11-10] MEDS ORDERED: KETOROLAC 30 MG/ML VIAL IM ONE (05:15)
[2022-11-10] MEDS ORDERED: diphenhydrAMINE 50 MG/ML INJ (BENADRYL) IM ONE (05:15)
[2022-11-10] MEDS ORDERED: PROMETHAZINE INJ 25 MG/ML (PHENERGAN) AMP IM ONE (05:15)
[2022-11-10 05:33] VITALS: BP 128/75
== END 2022-11-10 05:33 | disposition home or self-care (01) ==
LOC: EDUNIT# 04:24 → ER FS 04:28
DX: G43.909 Migraine, unspecified, not intractable, without status migrainosus (principal); E03.9 Hypothyroidism, unspecified; R00.0 Tachycardia, unspecified; Z45.2 Encounter for adjustment and management of vascular access device; Z28.310 Unvaccinated for COVID-19
CPT/HCPCS: 93005; 93041

== ENCOUNTER 2022-12-09 02:55 | Emergency (ER) | payer MEDICARE ==
[2022-12-09] MEDS ORDERED: diphenhydrAMINE 50 MG/ML INJ (BENADRYL) IM STA (02:59)
[2022-12-09] MEDS ORDERED: PROMETHAZINE INJ 25 MG/ML (PHENERGAN) AMP IM STA (02:59)
[2022-12-09] MEDS ORDERED: LORazepam INJ 2 MG/ML (ATIVAN) VIAL IM STA (02:59)
[2022-12-09] MEDS ORDERED: KETOROLAC 60 MG/2 ML VIAL IM STA (02:59)
--- NOTE | 2022-12-09 03:16 | ED Headache ---
General Chief Complaint: Head/Cervical Problems Stated Complaint: MIGRAINE Nursing Triage Note: Pt complaining of a migraine that started around 0100 Source: patient History of Present Illness Date Seen by Provider: Dec 09, 2022 Time Seen by Provider: 02:57 Initial Comments 41 yo female presenting with her to the ED with complaint of migraine headache and anxiety with nausea and vomiting. She had Botox injections done with a new doctor Sunday around 10 am. She is worried that the doctor did something wrong with the shots. She had a small headache all day but around 1 am it became a full Migraine headache like her usual ones in the past. She also kept getting more worried so that made her breath fast and she is feeling dizzy now as well. She denies fever, chills, cough, sore throat, chest pain, neck pain. She reports it feels like her usual migraine and aggravated by her anxiety. Timing/Duration: 1-3 hours Severity/Quality: severe, throbbing Location: global Prior Headaches/Recent Trauma: frequent headaches, chronic headaches Modifying Factors: worse with exposure to light Associated Symptoms: No confusion, No fatigue, No facial pain, No fever/chills, No flushing; nausea/vomiting; No nasal congestion, No nasal drainage, No numbness in legs/feet, No rash, No seizures, No sinus infection, No stiff neck, No vision changes Allergies and Home Medications Allergies Coded Allergies: Sulfa (Sulfonamide Antibiotics) (Verified Allergy, Mild, Itching, 03/14/19) cefuroxime (Verified Allergy, Unknown, 08/21/18) haloperidol (Verified Allergy, Unknown, 10/31/18) magnesium (Verified Allergy, Unknown, 08/21/18) topiramate (Verified Allergy, Unknown, 08/21/18) tramadol (Verified Allergy, Unknown, 10/31/18) Uncoded Allergies: DHE (Allergy, Unknown, 10/31/18) Patient Home Medication List Home Medication List Reviewed: Yes Bupropion HCl (Bupropion HCl Sr) 150 Mg Tablet.er, (Reported) Entered as Reported by: PARESH KNOTT on 08/22/18 1024 Butalbital/Aspirin/Caffeine (Fiorinal 50-325-40 mg Capsule) 1 Each Capsule, 1 EACH PO TID PRN for Headache Prescribed by: MELANIE CLAYTON on 3/10/20 1856 Butorphanol Tartrate (Butorphanol Tartrate) 25 Mg [place], (Reported) Entered as Reported by: PARESH KNOTT on 08/22/18 1024 Levothyroxine Sodium (Synthroid) 50 Mcg Tablet, (Reported) Entered as Reported by: PARESH KNOTT on 08/22/18 1024 Levothyroxine Sodium (Synthroid) 200 Mcg Tablet, (Reported) Entered as Reported by: PARESH KNOTT on 08/22/18 1024 Lorazepam (Lorazepam) 1 Mg Tablet, (Reported) Entered as Reported by: PARESH KNOTT on 08/22/18 1024 Promethazine HCl (Promethazine HCl) 50 Mg Supp.rect, 50 MG RC Q8H Prescribed by: TRISTEN LANDRY on 11/29/19 1555 Promethazine HCl (Promethazine Tablet) 25 Mg Tablet, 25 MG PO Q6H PRN for headache/nausea Prescribed by: LITA DE SANTIAGO on 03/18/22 1346 Propranolol HCl (Propranolol HCl) 20 Mg Tablet, (Reported) Entered as Reported by: PARESH KNOTT on 08/22/18 1024 Venlafaxine HCl (Venlafaxine HCl ER) 150 Mg Cap.er.24h, (Reported) Entered as Reported by: PARESH KNOTT on 08/22/18 1024 Zolpidem Tartrate (Zolpidem Tartrate) 5 Mg Tablet, (Reported) Entered as Reported by: PARESH KNOTT on 08/22/18 1024 Review of Systems Review of Systems Constitutional: No chills; dizziness (with hyperventilation); No fever Eyes: Denies Blurred Vision; Photophobia; Denies Vision Changes Ears, Nose, Mouth, Throat: denies ear pain, denies ear discharge, denies nose pain, denies nose discharge, denies epistaxis Respiratory: No cough Cardiovascular: No chest pain Gastrointestinal: nausea, vomiting Genitourinary: No dysuria Musculoskeletal: No neck pain Skin: No rash Psychiatric/Neurological: See HPI, Anxiety, Headache Past Yjazmia-Vovgnw-Wfscgo Hx Patient Social History Tobacco Use?: No Use of E-Cig and/or Vaping dev: No Substance use?: No Alcohol Use?: No Pt feels they are or have been: No Immunizations Up To Date First/Initial COVID19 Vaccinat: up to date Second COVID19 Vaccination Francis: up to date Third COVID19 Vaccination Date: up to date Seasonal Allergies Seasonal Allergies: No Past Medical History 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, 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, Hypothyroid Surgeries: Yes Hysterectomy Respiratory: No Cardiac: No Neurological: Yes 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 oz. [id number]; 23.00 BMI Method:Stated General Appearance: WD/WN, other (anxious) HEENT: PERRL/EOMI Neck: full range of motion, supple, normal inspection Cardiovascular: normal peripheral pulses, regular rate, rhythm Respiratory: chest non-tender, lungs clear, normal breath sounds, no respiratory distress, no accessory muscle use Extremities: normal range of motion, non-tender, normal capillary refill Psychiatric: alert, oriented x 3 Crainal Nerves: normal hearing, normal speech, PERRL Coordination/Gait: normal gait Motor/Sensory: no motor deficit, no sensory deficit Skin: normal color, warm/dry; No rash Progress/Results/Core Measures Results/Orders My Orders Orders - SUSANA LOPEZ MD Ketorolac Injection (Toradol Injection) (12/09/22 02:59) Promethazine Injection (Phenergan Injec (12/09/22 02:59) Diphenhydramine Injection (Benadryl Inje (12/09/22 02:59) Lorazepam Injection (Ativan Injection) (12/09/22 02:59) Vital Signs/I&O 12/09/22 02:59 Pulse 103 Resp 20 B/P (MAP) 134/70 (91) Pulse Ox 99 O2 Delivery Room Air Blood Pressure Mean: 91 Progress Progress Note : Progress Note Since she reports this feels like her typical migraine headache and no worrisome features such as fever, chills, nuchal rigidity, trauma, fall, new head injury, will order medications that she has received in the past. Will add in Lorazepam 2 mg IM since she has increased anxiety. Toradol 60 mg IM, Diphenhydramine 50 mg IM, Promethazine 25 mg IM. Encouraged to go home and rest in a cool dark room. Follow up with the doctor that did her Botox shots SundayDecember 08 and her PCP, Dr. Veloz, as needed for additional concerns. Departure Impression Primary Impression: Migraine headache without aura Qualified Codes: G43.019 - Migraine without aura, intractable, without status migrainosus Disposition: HOME, SELF-CARE Condition: Stable Departure-Patient Inst. Decision time for Depature: 03:16 Referrals: SABINA VELOZ MD (PCP/Family) Primary Care Physician Patient Instructions: Migraines in adults Add. Discharge Instructions: Try resting in cool dark room. Continue your home medications. Follow up with Dr. Veloz and Neurologist for continued concerns. All discharge instructions reviewed with patient and/or family. Voiced understanding. SUSANA LOPEZ MD Dec 09, 2022 03:16
[2022-12-09] MEDS ORDERED: diphenhydrAMINE 50 MG/ML INJ (BENADRYL) ONE (03:17)
[2022-12-09] MEDS ORDERED: PROMETHAZINE INJ 25 MG/ML (PHENERGAN) AMP ONE (03:17)
[2022-12-09] MEDS ORDERED: KETOROLAC 60 MG/2 ML VIAL ONE (03:17)
[2022-12-09] MEDS ORDERED: LORazepam INJ 2 MG/ML (ATIVAN) VIAL ONE (03:18)
[2022-12-09 03:26] VITALS: BP 134/70
== END 2022-12-09 03:27 | disposition home or self-care (01) ==
LOC: EDUNIT# 02:55 → ER FS 02:57
DX: G43.009 Migraine without aura, not intractable, without status migrainosus (principal); Z88.6 Allergy status to analgesic agent; Z28.310 Unvaccinated for COVID-19
CPT/HCPCS: 99284

== ENCOUNTER 2023-01-28 02:48 | Emergency (ER) | payer MEDICARE ==
[~2023-01-28] VITALS: Ht 170 cm; Wt 71.4 kg
[2023-01-28] MEDS ORDERED: KETOROLAC INJ 60 MG/2 ML VIAL IM STA (02:51)
[2023-01-28] MEDS ORDERED: PROMETHAZINE INJ 25 MG/ML (PHENERGAN) AMP IM STA (02:51)
[2023-01-28] MEDS ORDERED: diphenhydrAMINE INJ 50 MG/ML VIAL IM STA (02:51)
[2023-01-28 02:53] VITALS: BP 116/85
--- NOTE | 2023-01-28 02:53 | ED Headache ---
General Stated Complaint: MIGRANE Source: patient, old records History of Present Illness Date Seen by Provider: Jan 28, 2023 Time Seen by Provider: 02:51 Initial Comments 42 yo female presenting with complaint of headache that is typical for her migraine headaches. She denies any acute head trauma, injury, fever, chills. She has had some popping in her ears with blowing her nose but no pain. She has felt flushed at times but no actual fever. She feels that this is like her usual migraine headache and no severe warning signs. She has had some emesis but no diarrhea, abdominal pain, painful urination, neck pain. She tried her home medicine without improvement. Timing/Duration: 4-6 hours Severity/Quality: severe Location: global Prior Headaches/Recent Trauma: frequent headaches, chronic headaches Modifying Factors: worse with exposure to light Associated Symptoms: No confusion, No fatigue, No facial pain, No fever/chills; flushing; No loss of consciousness; nausea/vomiting; No nasal congestion, No nasal drainage, No numbness in legs/feet, No rash, No seizures, No sinus infection, No stiff neck, No vision changes, No weakness Allergies and Home Medications Allergies Coded Allergies: Sulfa (Sulfonamide Antibiotics) (Verified Allergy, Mild, Itching, 03/14/19) cefuroxime (Verified Allergy, Unknown, 08/21/18) haloperidol (Verified Allergy, Unknown, 10/31/18) magnesium (Verified Allergy, Unknown, 08/21/18) topiramate (Verified Allergy, Unknown, 08/21/18) tramadol (Verified Allergy, Unknown, 10/31/18) Uncoded Allergies: DHE (Allergy, Unknown, 10/31/18) Patient Home Medication List Home Medication List Reviewed: Yes Bupropion HCl (Bupropion HCl Sr) 150 Mg Tablet.er, (Reported) Entered as Reported by: PARESH KNOTT on 08/22/18 1024 Butalbital/Aspirin/Caffeine (Fiorinal 50-325-40 mg Capsule) 1 Each Capsule, 1 EACH PO TID PRN for Headache Prescribed by: MELANIE CLAYTON on 09/02/19 1856 Butorphanol Tartrate (Butorphanol Tartrate) 25 Mg [place], (Reported) Entered as Reported by: PARESH KNOTT on 08/22/18 1024 Levothyroxine Sodium (Synthroid) 50 Mcg Tablet, (Reported) Entered as Reported by: PARESH KNOTT on 08/22/18 1024 Levothyroxine Sodium (Synthroid) 200 Mcg Tablet, (Reported) Entered as Reported by: PARESH KNOTT on 08/22/18 1024 Lorazepam (Lorazepam) 1 Mg Tablet, (Reported) Entered as Reported by: PARESH KONTT on 08/22/18 1024 Promethazine HCl (Promethazine HCl) 50 Mg Supp.rect, 50 MG RC Q8H Prescribed by: TRISTEN LANDRY on 11/29/19 1555 Promethazine HCl (Promethazine Tablet) 25 Mg Tablet, 25 MG PO Q6H PRN for headache/nausea Prescribed by: LITA DE SANTIAGO on 03/18/22 1346 Propranolol HCl (Propranolol HCl) 20 Mg Tablet, (Reported) Entered as Reported by: PARESH KNOTT on 08/22/18 1024 Venlafaxine HCl (Venlafaxine HCl ER) 150 Mg Cap.er.24h, (Reported) Entered as Reported by: PARESH KNOTT on 08/22/18 1024 Zolpidem Tartrate (Zolpidem Tartrate) 5 Mg Tablet, (Reported) Entered as Reported by: PARESH KNOTT on 08/22/18 1024 Review of Systems Review of Systems Constitutional: No chills, No fever Eyes: Denies Blurred Vision; Photophobia; Denies Vision Changes Ears, Nose, Mouth, Throat: see HPI Respiratory: no symptoms reported Cardiovascular: no symptoms reported Gastrointestinal: see HPI Genitourinary: no symptoms reported Musculoskeletal: no symptoms reported Skin: No rash Psychiatric/Neurological: See HPI Past Dqtbvmx-Uexlll-Vddazf Hx Immunizations Up To Date First/Initial COVID19 Vaccinat: up to date Second COVID19 Vaccination Francis: up to date Third COVID19 Vaccination Date: up to date Seasonal Allergies Seasonal Allergies: No Past Medical History 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, 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, Hypothyroid Surgeries: Yes Hysterectomy Respiratory: No Cardiac: No 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 oz. [id number]; 23.00 BMI Method:Stated General Appearance: WD/WN, mild distress, thin HEENT: PERRL/EOMI, normal ENT inspection, TMs normal, pharynx normal Neck: non-tender, full range of motion, supple, normal inspection Cardiovascular: normal peripheral pulses, regular rate, rhythm Respiratory: chest non-tender, lungs clear, normal breath sounds, no respiratory distress, no accessory muscle use Psychiatric: alert, oriented x 3 Crainal Nerves: normal hearing, normal speech, PERRL Coordination/Gait: normal gait Motor/Sensory: no motor deficit, no sensory deficit Skin: normal color, warm/dry Progress/Results/Core Measures Results/Orders My Orders Orders - SUSANA LOPEZ MD Ketorolac Injection (Toradol Injection) (01/28/23 02:51) Diphenhydramine Injection (Diphenhydram (01/28/23 02:51) Promethazine Injection (Phenergan Injec (01/28/23 02:51) Progress Progress Note : Progress Note With patient reporting that this feels like her usual migraine headaches and no acute severe warning signs for more dangerous source of migraine will try the migraine cocktail of medicines that she has had some relief with in the past. T oradol 60 mg, benadryl 50 mg and Promethazine 25 mg all IM. Encourage to rest in cool dark room and continue on her home medicines. Departure Impression Primary Impression: Migraine headache without aura Qualified Codes: G43.019 - Migraine without aura, intractable, without status migrainosus Disposition: 01 HOME, SELF-CARE Condition: Stable Departure-Patient Inst. Decision time for Depature: 02:52 Referrals: SABINA VELOZ MD (PCP/Family) Primary Care Physician Patient Instructions: Migraines in adults Add. Discharge Instructions: Continue your home medicines and follow up with clinic for continued concerns. SUSANA LOPEZ MD Jan 28, 2023 02:53
== END 2023-01-28 03:12 | disposition home or self-care (01) ==
LOC: EDUNIT# 02:48 → ER FS 02:49
DX: G43.009 Migraine without aura, not intractable, without status migrainosus (principal)
CPT/HCPCS: 99284

== ENCOUNTER 2023-02-20 04:50 | Emergency (ER) | payer MEDICARE ==
[~2023-02-20] VITALS: Ht 170.1 cm; Wt 72.5 kg
[2023-02-20 04:51] VITALS: BP 128/77
[2023-02-20] MEDS ORDERED: KETOROLAC INJ 60 MG/2 ML VIAL IM STA (04:54)
[2023-02-20] MEDS ORDERED: diphenhydrAMINE INJ 50 MG/ML VIAL IM STA (04:54)
[2023-02-20] MEDS ORDERED: PROMETHAZINE INJ 25 MG/ML VIAL IM STA (04:54)
--- NOTE | 2023-02-20 05:06 | ED Headache ---
General Chief Complaint: Head/Cervical Problems Stated Complaint: VOMITING|PAIN|MIGRAINE Nursing Triage Note: Patient states she has had a migraine with nausea and vomiting since Sunday. Source: patient History of Present Illness Date Seen by Provider: Feb 20, 2023 Time Seen by Provider: 04:53 Initial Comments 42-year-old female presenting with complaints of migraine headache that started Sunday. She has had nausea and vomiting with this as well. She been having some improvement with Excedrin Migraine but it was not helping on Sunday. She also has out of her anxiety medicine. She feels like her heart is racing and pounding and that was making her more anxious as well as triggering more of the migraine. She denies having fever, chills, chest pain, shortness of breath, abdominal pain, pain with urination. She states that the migraine headache feels like her typical migraine and between that and the anxiety being out of control she feels like she cannot get back on top of controlling her symptoms with home medications. Timing/Duration: other (2 days) Severity/Quality: severe, throbbing Location: occipital Prior Headaches/Recent Trauma: frequent headaches Modifying Factors: worse with exposure to light, worse with other (Anxiety making things worse) Associated Symptoms: No confusion; fatigue; No facial pain, No fever/chills, No flushing, No loss of consciousness; nausea/vomiting; No nasal congestion, No nasal drainage, No numbness in legs/feet, No rash, No seizures, No sinus infection, No stiff neck, No vision changes, No weakness Allergies and Home Medications Allergies Coded Allergies: Sulfa (Sulfonamide Antibiotics) (Verified Allergy, Mild, Itching, 03/14/19) cefuroxime (Verified Allergy, Unknown, 08/21/18) haloperidol (Verified Allergy, Unknown, 10/31/18) magnesium (Verified Allergy, Unknown, 08/21/18) topiramate (Verified Allergy, Unknown, 08/21/18) tramadol (Verified Allergy, Unknown, 10/31/18) Uncoded Allergies: DHE (Allergy, Unknown, 10/31/18) Patient Home Medication List Home Medication List Reviewed: Yes Bupropion HCl (Bupropion HCl Sr) 150 Mg Tablet.er, (Reported) Entered as Reported by: PARESH KNOTT on 08/22/18 1024 Butalbital/Aspirin/Caffeine (Fiorinal 50-325-40 mg Capsule) 1 Each Capsule, 1 EACH PO TID PRN for Headache Prescribed by: MELANIE CLAYTON on 09/02/19 1856 Butorphanol Tartrate (Butorphanol Tartrate) 25 Mg [place], (Reported) Entered as Reported by: PRAESH KNOTT on 08/22/18 1024 Levothyroxine Sodium (Synthroid) 50 Mcg Tablet, (Reported) Entered as Reported by: PARESH KNOTT on 08/22/18 1024 Levothyroxine Sodium (Synthroid) 200 Mcg Tablet, (Reported) Entered as Reported by: PARESH KNOTT on 08/22/18 1024 Lorazepam (Lorazepam) 1 Mg Tablet, (Reported) Entered as Reported by: PARESH KNOTT on 08/22/18 1024 Promethazine HCl (Promethazine HCl) 50 Mg Supp.rect, 50 MG RC Q8H Prescribed by: TRISTEN LANDRY on 11/29/19 1555 Promethazine HCl (Promethazine Tablet) 25 Mg Tablet, 25 MG PO Q6H PRN for headache/nausea Prescribed by: LITA DE SANTIAGO on 03/18/22 1346 Propranolol HCl (Propranolol HCl) 20 Mg Tablet, (Reported) Entered as Reported by: PARESH KNOTT on 08/22/18 1024 Venlafaxine HCl (Venlafaxine HCl ER) 150 Mg Cap.er.24h, (Reported) Entered as Reported by: PARESH KNOTT on 08/22/18 1024 Zolpidem Tartrate (Zolpidem Tartrate) 5 Mg Tablet, (Reported) Entered as Reported by: PARESH KNOTT on 08/22/18 1024 Review of Systems Review of Systems Constitutional: No chills, No fever Eyes: Photophobia Ears, Nose, Mouth, Throat: no symptoms reported Respiratory: no symptoms reported Cardiovascular: palpitations Gastrointestinal: nausea, vomiting Genitourinary: no symptoms reported Musculoskeletal: no symptoms reported Skin: no symptoms reported Psychiatric/Neurological: Anxiety, Headache Past [id number] Hx Patient Social History Tobacco Use?: No Substance use?: No Alcohol Use?: No Pt feels they are or have been: No Immunizations Up To Date First/Initial COVID19 Vaccinat: up to date Second COVID19 Vaccination Francis: up to date Third COVID19 Vaccination Date: up to date Seasonal Allergies Seasonal Allergies: No Past Medical History 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, 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, 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 Surgeries: Yes Hysterectomy Respiratory: No Cardiac: No 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 oz. [id number]; 25.00 BMI Method:Stated General Appearance: WD/WN, mild distress (Anxious) HEENT: PERRL/EOMI Neck: non-tender, full range of motion, supple, normal inspection Cardiovascular: normal peripheral pulses, regular rate, rhythm (Heart rate varying from 92-1 04) Respiratory: chest non-tender, lungs clear, normal breath sounds, no res piratory distress, no accessory muscle use Gastrointestinal: normal bowel sounds, non tender, soft, no pulsatile mass Psychiatric: alert, oriented x 3 Crainal Nerves: normal hearing, normal speech, PERRL Coordination/Gait: normal gait Motor/Sensory: no motor deficit, no sensory deficit Skin: normal color, warm/dry; No rash Progress/Results/Core Measures Results/Orders My Orders Orders - SUSANA LOPEZ MD Promethazine Injection (Promethazine I (02/20/23 04:54) Diphenhydramine Injection (Diphenhydram (02/20/23 04:54) Ketorolac Injection (Ketorolac Injection (02/20/23 04:54) Lorazepam Injection (Lorazepam Injection (02/20/23 05:03) Vital Signs/I&O 02/20/23 04:51 Temp 37.0 Pulse 98 Resp 16 B/P (MAP) 128/77 (94) Pulse Ox 99 O2 Delivery Room Air Blood Pressure Mean: 94 Progress Progress Note : Progress Note As patient reports that this feels like her typical migraine headache will order medications that have helped previously. She is not having any worrisome signs or risk factors such as fever, nuchal rigidity, numbness or weakness in her arms or legs. Toradol 60 mg IM, Phenergan 25 mg IM, Benadryl 50 mg IM, lorazepam 2 mg IM. Encourage patient to try and rest in a cool dark room. Continue to sip on fluids to help with hydration. Follow-up with her regular provider for refill of the anxiety medicine Departure Impression Primary Impression: Migraine headache without aura Qualified Codes: G43.019 - Migraine without aura, intractable, without status migrainosus Additional Impression: Anxiety Disposition: HOME, SELF-CARE Condition: Stable Departure-Patient Inst. Decision time for Depature: 05:05 Referrals: SABINA VELOZ MD (PCP/Family) Primary Care Physician Patient Instructions: Migraines in adults Add. Discharge Instructions: Try to keep sipping on fluids to stay hydrated. Continue taking your regular medications. Follow-up with your regular provider for continued concerns. All discharge instructions reviewed with patient and/or family. Voiced understanding. SUSANA LOPEZ MD Feb 20, 2023 05:06
== END 2023-02-20 05:16 | disposition home or self-care (01) ==
LOC: EDUNIT# 04:50 → ER FS 04:52
DX: G43.009 Migraine without aura, not intractable, without status migrainosus (principal); F41.9 Anxiety disorder, unspecified; Z88.6 Allergy status to analgesic agent
CPT/HCPCS: 99284

== ENCOUNTER 2023-03-03 22:21 | Emergency (ER) | payer MEDICARE ==
[~2023-03-03] VITALS: Ht 170.1 cm; Wt 73.0 kg
[2023-03-03 22:21] VITALS: BP 124/70
[2023-03-03] MEDS ORDERED: diphenhydrAMINE INJ 50 MG/ML VIAL IM ONE (22:30)
[2023-03-03] MEDS ORDERED: KETOROLAC INJ 15 MG/ML VIAL IM ONE (22:30)
[2023-03-03] MEDS ORDERED: PROMETHAZINE INJ 25 MG/ML VIAL IM ONE (22:30)
--- NOTE | 2023-03-03 22:34 | ED Headache ---
General Chief Complaint: Head/Cervical Problems Stated Complaint: HEADACHE Nursing Triage Note: Patient reports that she has had a headache for the last several days. Patient has chronic migraines. Patient reports taking all the medications that she had available at home with no relief. Source: patient Exam Limitations: no limitations History of Present Illness Date Seen by Provider: Mar 03, 2023 Time Seen by Provider: 22:23 Initial Comments 42-year-old female with chronic migraines coming in due to a migraine. She states this pines been going on for about a week despite her home medications. Started on the right side of her head and has moved to the left which is pretty typical. Denies any neck stiffness, fever, vision changes, weakness, numbness, chest pain, vomiting, or any other concerns. Allergies and Home Medications Allergies Coded Allergies: Sulfa (Sulfonamide Antibiotics) (Verified Allergy, Mild, Itching, 03/14/19) cefuroxime (Verified Allergy, Unknown, 08/21/18) haloperidol (Verified Allergy, Unknown, 10/31/18) magnesium (Verified Allergy, Unknown, 08/21/18) topiramate (Verified Allergy, Unknown, 08/21/18) tramadol (Verified Allergy, Unknown, 10/31/18) Uncoded Allergies: DHE (Allergy, Unknown, 10/31/18) Patient Home Medication List Home Medication List Reviewed: Yes Bupropion HCl (Bupropion HCl Sr) 150 Mg Tablet.er, (Reported) Entered as Reported by: PARESH KNOTT on 08/22/18 1024 Butalbital/Aspirin/Caffeine (Fiorinal 50-325-40 mg Capsule) 1 Each Capsule, 1 EACH PO TID PRN for Headache Prescribed by: MELANIE CLAYTON on 09/02/19 1856 Butorphanol Tartrate (Butorphanol Tartrate) 25 Mg [place], (Reported) Entered as Reported by: PARESH KNOTT on 08/22/18 1024 Levothyroxine Sodium (Synthroid) 50 Mcg Tablet, (Reported) Entered as Reported by: PARESH KNOTT on 08/22/18 1024 Levothyroxine Sodium (Synthroid) 200 Mcg Tablet, (Reported) Entered as Reported by: PARESH KNOTT on 08/22/18 1024 Lorazepam (Lorazepam) 1 Mg Tablet, (Reported) Entered as Reported by: PARESH KNOTT on 08/22/18 1024 Promethazine HCl (Promethazine HCl) 50 Mg Supp.rect, 50 MG RC Q8H Prescribed by: TRISTEN LANDRY on 11/29/19 1555 Promethazine HCl (Promethazine Tablet) 25 Mg Tablet, 25 MG PO Q6H PRN for headache/nausea Prescribed by: LITA DE SANTIAGO on 03/18/22 1346 Propranolol HCl (Propranolol HCl) 20 Mg Tablet, (Reported) Entered as Reported by: PARESH KNOTT on 08/22/18 1024 Venlafaxine HCl (Venlafaxine HCl ER) 150 Mg Cap.er.24h, (Reported) Entered as Reported by: PARESH KNOTT on 08/22/18 1024 Zolpidem Tartrate (Zolpidem Tartrate) 5 Mg Tablet, (Reported) Entered as Reported by: PARESH KNOTT on 08/22/18 1024 Review of Systems Review of Systems Constitutional: No fever Eyes: No Symptoms Reported Ears, Nose, Mouth, Throat: no symptoms reported Respiratory: no symptoms reported Cardiovascular: no symptoms reported Gastrointestinal: no symptoms reported Genitourinary: no symptoms reported Musculoskeletal: no symptoms reported Skin: no symptoms reported Psychiatric/Neurological: See HPI All Other Systems Reviewed Negative Unless Noted: Yes Past Xzgmogj-Abvtej-Kbtbcn Hx Patient Social History Tobacco Use?: No Substance use?: No Alcohol Use?: No Pt feels they are or have been: No Immunizations Up To Date First/Initial COVID19 Vaccinat: up to date Second COVID19 Vaccination Francis: up to date Third COVID19 Vaccination Date: up to date Seasonal Allergies Seasonal Allergies: No Past Medical History 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, 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, Hypothyroid Surgeries: Yes Hysterectomy Respiratory: No Cardiac: No 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 oz. 70.307327nv; 25.00 BMI Method:Stated General Appearance: WD/WN, no apparent distress HEENT: PERRL/EOMI, normal ENT inspection, pharynx normal Neck: non-tender, full range of motion, supple, normal inspection, other (no meningismus) Cardiovascular: regular rate, rhythm, no edema, no murmur Respiratory: chest non-tender, lungs clear, normal breath sounds, no respiratory distress, no accessory muscle use Gastrointestinal: normal bowel sounds, non tender, soft; No distended, No guarding, No rebound Back: normal inspection, no CVA tenderness, no vertebral tenderness Extremities: normal range of motion, non-tender, normal inspection, no pedal edema, no calf tenderness, normal capillary refill Psychiatric: alert, oriented x 3 Crainal Nerves: normal hearing, normal speech, PERRL Coordination/Gait: normal finger to nose, normal gait Motor/Sensory: no motor deficit, no sensory deficit, no pronator drift Skin: normal color, warm/dry Progress/Results/Core Measures Results/Orders My Orders Orders - LITA DE SANTIAGO MD Promethazine Injection (Promethazine I (03/03/23 22:30) Diphenhydramine Injection (Diphenhydram (03/03/23 22:30) Ketorolac Injection (Ketorolac Injection (03/03/23 22:30) Vital Signs/I&O 03/03/23 22:21 Temp 36.8 Pulse 93 Resp 18 B/P (MAP) 124/70 (88) Pulse Ox 99 O2 Delivery Room Air Blood Pressure Mean: 88 Progress Progress Note : Progress Note 42-year-old female with above history coming in for her typical migraine headache. ABCs were intact and vitals were stable on presentation. Physical exam reassuring including no meningismus and she is afebrile. Meningitis very unlikely. She has no red flags otherwise. Patient states this feels exactly like her other headaches. She was given IM injections of medications. I believe she is otherwise stable for discharge with outpatient follow-up. She was sent home with strict return precautions. Departure Impression Primary Impression: Migraine headache without aura Qualified Codes: G43.001 - Migraine without aura, not intractable, with status migrainosus Disposition: 01 HOME, SELF-CARE Condition: Stable Departure-Patient Inst. Decision time for Depature: 22:40 Referrals: SABINA VELOZ MD (PCP/Family) Primary Care Physician Patient Instructions: Headache, Adult (DC) Add. Discharge Instructions: Please be sure to follow-up with your regular doctor as scheduled including your neurologist. LITA DE SANTIAGO MD Mar 03, 2023 22:34
== END 2023-03-03 22:42 | disposition home or self-care (01) ==
LOC: EDUNIT# 22:21 → ER FS 22:22
DX: G43.009 Migraine without aura, not intractable, without status migrainosus (principal)
CPT/HCPCS: 99284

== ENCOUNTER 2023-03-14 05:43 | Emergency (ER) | payer MEDICARE ==
[~2023-03-14] VITALS: Ht 170 cm; Wt 75.1 kg
[2023-03-14 06:05] VITALS: BP 137/89
--- NOTE | 2023-03-14 06:09 | ED Headache ---
General Chief Complaint: Head/Cervical Problems Stated Complaint: MIGRAINE History of Present Illness Date Seen by Provider: Mar 14, 2023 Time Seen by Provider: 05:57 Initial Comments 42-year-old female with PMH of migraine is here with complaints of a migraine which has been going on for the past 2 days. On Sunday patient saw her neurologist and received Botox for her migraine, and she has been taking Excedrin but still has a headache. Migraine is on her right side of her head, and is associated with photophobia and nausea. Patient frequently comes to the ER for migraine treatment. Denies fever and chills, neck pain and neck stiffness, falls, trauma, blurry vision, dizziness. Allergies and Home Medications Allergies Coded Allergies: Sulfa (Sulfonamide Antibiotics) (Verified Allergy, Mild, Itching, 03/14/19) cefuroxime (Verified Allergy, Unknown, 08/21/18) haloperidol (Verified Allergy, Unknown, 10/31/18) magnesium (Verified Allergy, Unknown, 08/21/18) topiramate (Verified Allergy, Unknown, 08/21/18) tramadol (Verified Allergy, Unknown, 10/31/18) Uncoded Allergies: DHE (Allergy, Unknown, 10/31/18) Patient Home Medication List Home Medication List Reviewed: Yes Bupropion HCl (Bupropion HCl Sr) 150 Mg Tablet.er, (Reported) Entered as Reported by: PARESH KNOTT on 08/22/18 1024 Butalbital/Aspirin/Caffeine (Fiorinal 50-325-40 mg Capsule) 1 Each Capsule, 1 EACH PO TID PRN for Headache Prescribed by: MELANIE CLAYTON on 09/02/19 1856 Butorphanol Tartrate (Butorphanol Tartrate) 25 Mg [place], (Reported) Entered as Reported by: PARESH KNOTT on 08/22/18 1024 Levothyroxine Sodium (Synthroid) 50 Mcg Tablet, (Reported) Entered as Reported by: PARESH KNOTT on 08/22/18 1024 Levothyroxine Sodium (Synthroid) 200 Mcg Tablet, (Reported) Entered as Reported by: PARESH KNOTT on 08/22/18 1024 Lorazepam (Lorazepam) 1 Mg Tablet, (Reported) Entered as Reported by: PARESH KNOTT on 08/22/18 1024 Promethazine HCl (Promethazine HCl) 50 Mg Supp.rect, 50 MG RC Q8H Prescribed by: TRISTEN LANDRY on 11/29/19 1555 Promethazine HCl (Promethazine Tablet) 25 Mg Tablet, 25 MG PO Q6H PRN for headache/nausea Prescribed by: LITA DE SANTIAGO on 03/18/22 1346 Propranolol HCl (Propranolol HCl) 20 Mg Tablet, (Reported) Entered as Reported by: PARESH KNOTT on 08/22/18 1024 Venlafaxine HCl (Venlafaxine HCl ER) 150 Mg Cap.er.24h, (Reported) Entered as Reported by: PARESH KNOTT on 08/22/18 1024 Zolpidem Tartrate (Zolpidem Tartrate) 5 Mg Tablet, (Reported) Entered as Reported by: PARESH KNOTT on 08/22/18 1024 Review of Systems Review of Systems Constitutional: no symptoms reported Psychiatric/Neurological: Headache Past Mvbxobf-Hpommg-Kultoa Hx Immunizations Up To Date First/Initial COVID19 Vaccinat: up to date Second COVID19 Vaccination Francis: up to date Third COVID19 Vaccination Date: up to date Seasonal Allergies Seasonal Allergies: No Past Medical History 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, 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, Hypothyroid Surgeries: Yes Hysterectomy Respiratory: No Cardiac: No 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 oz. 70.092063vh; 25.00 BMI Method:Stated General Appearance: WD/WN, mild distress HEENT: PERRL/EOMI, normal ENT inspection Neck: non-tender, full range of motion, supple, normal inspection Back: normal inspection, no vertebral tenderness Extremities: normal range of motion Psychiatric: alert, oriented x 3 Crainal Nerves: normal hearing, normal speech, PERRL Coordination/Gait: normal gait Motor/Sensory: no motor deficit, no sensory deficit Skin: normal color Progress/Results/Core Measures Results/Orders My Orders Orders - ESTEFANY HOROWITZ MD Ketorolac Injection (Ketorolac Injection (03/14/23 06:15) Diphenhydramine Injection (Diphenhydram (03/14/23 06:15) Metoclopramide Injection (Metoclopramide (03/14/23 06:45) Metoclopramide Injection (Metoclopramide (03/14/23 06:40) Diphenhydramine Injection (Diphenhydram (03/14/23 06:41) Ondansetron Oral Dissolve Tab (Ondanset (03/14/23 06:46) Diphenhydramine Injection (Diphenhydram (03/14/23 06:46) Vital Signs/I&O 03/14/23 06:05 Temp 36.9 Pulse 107 Resp 16 B/P (MAP) 137/89 (105) Pulse Ox 100 O2 Delivery Room Air Progress Progress Note : Progress Note 1. MIGRAINE: - Toradol im/ Benadryl im/ Zofran oral given, symptoms improved with treatment - Pt states she is allergic to compazine and reglan, but it is not on her allergy list - Vitals stable - Follow up with PCP in 7 days - Adequate hydration advised -The patient was seen in the ED, and treated appropriately to presentation at a specific point in time. Patient is informed that there is a possibility that disease and illness can evolve and change in acuity rapidly or slowly after patient is discharged from the ER. Precautionary advice given to the patient for immediate return to ER if symptoms worsen or do not resolve, and to seek emergency care sooner rather than later. Pt also advised on the importance of PCP follow up and compliance with management and follow up plan with PCP and/or specialist, as this is part of the management plan. Pt verbally expressed understanding. Departure Impression Primary Impression: Migraine Qualified Codes: G43.119 - Migraine with aura, intractable, without status migrainosus Disposition: HOME, SELF-CARE Condition: Improved Departure-Patient Inst. Referrals: SABINA VELOZ MD (PCP/Family) Primary Care Physician Patient Instructions: Home Headache Remedies, Migraines in adults Add. Discharge Instructions: - Follow up with PCP in 7 days - Adequate hydration advised All discharge instructions reviewed with patient and/or family. Voiced unde rstanding. ESTEFANY OHROWITZ MD Mar 14, 2023 06:09
[2023-03-14] MEDS ORDERED: PROCHLORPERAZINE INJ 10 MG/2ML VIAL IM ONE (06:15)
[2023-03-14] MEDS ORDERED: KETOROLAC INJ 30 MG/ML VIAL IM ONE (06:15)
[2023-03-14] MEDS ORDERED: diphenhydrAMINE INJ 50 MG/ML VIAL IM ONE (06:15)
[2023-03-14] MEDS ORDERED: METOCLOPRAMIDE INJ 10 MG/2 ML ONE (06:40)
[2023-03-14] MEDS ORDERED: diphenhydrAMINE INJ 50 MG/ML VIAL ONE ×2 (06:41→06:46)
[2023-03-14] MEDS ORDERED: METOCLOPRAMIDE INJ 10 MG/2 ML IM ONE (06:45)
[2023-03-14] MEDS ORDERED: ONDANSETRON 4 MG ORAL DISSOLVE TABLET ONE (06:46)
[2023-03-14] MEDS ORDERED: ONDANSETRON 4 MG ORAL DISSOLVE TABLET PO STA (06:49)
== END 2023-03-14 06:57 | disposition home or self-care (01) ==
LOC: EDUNIT# 05:43 → ER FS 05:44
DX: G43.909 Migraine, unspecified, not intractable, without status migrainosus (principal)
CPT/HCPCS: 99284

== ENCOUNTER 2023-03-14 10:01 | Emergency (ER) | payer MEDICARE ==
[~2023-03-14] VITALS: Ht 162 cm; Wt 75.0 kg
[2023-03-14 10:11] VITALS: BP 142/81
[2023-03-14] MEDS ORDERED: KETOROLAC INJ 30 MG/ML VIAL IM ONE (10:15)
[2023-03-14] MEDS ORDERED: PROMETHAZINE 25 MG TABLET PO ONE (10:15)
[2023-03-14] MEDS ORDERED: diphenhydrAMINE INJ 50 MG/ML VIAL IM ONE (10:15)
--- NOTE | 2023-03-14 10:16 | ED Headache ---
General Chief Complaint: Head/Cervical Problems Stated Complaint: HEADACHE, N/V Source: patient Exam Limitations: no limitations History of Present Illness Date Seen by Provider: Mar 14, 2023 Time Seen by Provider: 10:04 Initial Comments 42-year-old female presents the emergency department today for migraine headache. Is been present for 2 days. She was seen here last night and states she did not get any relief with the treatments provided. She has nausea, phono and photophobia as well as some dizziness which are typical migraine symptoms for her. Notably record review shows she has been seen in the emergency department at least 10 times for this this year. She saw her neurologist and had Botox last week which she thinks has triggered a worsening migraine. She denies any fevers chills or neck stiffness. Pain is mostly on the right side of her head which is fairly typical for her migraines. All other systems reviewed and negative except documented per HPI. Voice recognition software was used to help create this chart Allergies and Home Medications Allergies Coded Allergies: Sulfa (Sulfonamide Antibiotics) (Verified Allergy, Mild, Itching, 03/14/19) cefuroxime (Verified Allergy, Unknown, 08/21/18) haloperidol (Verified Allergy, Unknown, 10/31/18) magnesium (Verified Allergy, Unknown, 08/21/18) topiramate (Verified Allergy, Unknown, 08/21/18) tramadol (Verified Allergy, Unknown, 10/31/18) Uncoded Allergies: DHE (Allergy, Unknown, 10/31/18) Patient Home Medication List Home Medication List Reviewed: Yes Bupropion HCl (Bupropion HCl Sr) 150 Mg Tablet.er, (Reported) Entered as Reported by: PARESH KNOTT on 08/22/18 1024 Butalbital/Aspirin/Caffeine (Fiorinal 50-325-40 mg Capsule) 1 Each Capsule, 1 EACH PO TID PRN for Headache Prescribed by: MELANIE CLAYTON on 09/02/19 1856 Butorphanol Tartrate (Butorphanol Tartrate) 25 Mg [place], (Reported) Entered as Reported by: PARESH KNOTT on 08/22/18 1024 Levothyroxine Sodium (Synthroid) 50 Mcg Tablet, (Reported) Entered as Reported by: PARESH KNOTT on 08/22/18 1024 Levothyroxine Sodium (Synthroid) 200 Mcg Tablet, (Reported) Entered as Reported by: PARESH KNOTT on 08/22/18 1024 Lorazepam (Lorazepam) 1 Mg Tablet, (Reported) Entered as Reported by: APRESH KNOTT on 08/22/18 1024 Promethazine HCl (Promethazine HCl) 50 Mg Supp.rect, 50 MG RC Q8H Prescribed by: TRISTEN LANDRY on 11/29/19 1555 Promethazine HCl (Promethazine Tablet) 25 Mg Tablet, 25 MG PO Q6H PRN for headache/nausea Prescribed by: LITA DE SANTIAGO on 03/18/22 1346 Propranolol HCl (Propranolol HCl) 20 Mg Tablet, (Reported) Entered as Reported by: PARESH KNOTT on 08/22/18 1024 Venlafaxine HCl (Venlafaxine HCl ER) 150 Mg Cap.er.24h, (Reported) Entered as Reported by: PARESH KNOTT on 08/22/18 1024 Zolpidem Tartrate (Zolpidem Tartrate) 5 Mg Tablet, (Reported) Entered as Reported by: PARESH KNOTT on 08/22/18 1024 Review of Systems Review of Systems Constitutional: see HPI Past Orsiyco-Wsileu-Oatzob Hx Patient Social History Tobacco Use?: No Use of E-Cig and/or Vaping dev: No Substance use?: No Alcohol Use?: No Pt feels they are or have been: No Immunizations Up To Date First/Initial COVID19 Vaccinat: up to date Second COVID19 Vaccination Francis: up to date Third COVID19 Vaccination Date: up to date Seasonal Allergies Seasonal Allergies: No Past Medical History 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, 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, 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 oz. 70.587417gk; 25.00 BMI Method:Stated General Appearance: WD/WN, no apparent distress HEENT: PERRL/EOMI, normal ENT inspection, pharynx normal Neck: non-tender, supple Cardiovascular: regular rate, rhythm, no murmur Respiratory: chest non-tender, lungs clear, normal breath sounds Gastrointestinal: non tender, soft Psychiatric: alert, oriented x 3 Crainal Nerves: normal speech Skin: normal color, warm/dry Progress/Results/Core Measures Results/Orders My Orders Orders - PATRICIA ROBERTSON DO Promethazine Tablet (Promethazine Tabl (03/14/23 10:15) Ketorolac Injection (Ketorolac Injection (03/14/23 10:15) Diphenhydramine Injection (Diphenhydram (03/14/23 10:15) Medications Given in ED Current Medications Medications Dose Ordered Sig/Shell Route Start Time Stop Time Status Last Admin Dose Admin Diphenhydramine HCl 50 mg ONCE ONCE IM 03/14/23 10:15 03/14/23 10:16 DC 03/14/23 10:21 50 MG Ketorolac Tromethamine 30 mg ONCE ONCE IM 03/14/23 10:15 03/14/23 10:16 DC 03/14/23 10:21 30 MG Promethazine HCl 25 mg ONCE ONCE PO 03/14/23 10:15 03/14/23 10:16 DC 03/14/23 10:20 25 MG Vital Signs/I&O 03/14/23 10:11 Temp 37.4 Pulse 70 Resp 20 B/P (MAP) 142/81 (101) Pulse Ox 99 Departure Communication (Admissions) Patient is hemodynamically stable and neurologically intact. Her migraines are typical for her frequent migraines that she is known to have. She has worked with neurology extensively and yet to find relief with the provided therapies. Gave her IM Benadryl and IM Toradol once again. She specifically requests Phenergan. I advised that I would go ahead and give this to her and ordered it orally. She requested IM and I advised him I am willing to do this. She is adamant that she gets Phenergan IM and again I stated that I think is appropriate at this time given the chronicity of her symptoms. States understanding. She and her mother then states they have "somewhere to be at 11." They request discharge. Impression Primary Impression: Migraine headache with aura Qualified Codes: G43.109 - Migraine with aura, not intractable, without status migrainosus Disposition: HOME, SELF-CARE Condition: Stable Departure-Patient Inst. Referrals: SABINA VELOZ MD (PCP/Family) Primary Care Physician Patient Instructions: Migraines in adults Add. Discharge Instructions: Continue to take all medications as previously prescribed. Work with your neurologist to find a treatment that works for you. Return to the emergency department for any severe concerns. All discharge instructions reviewed with patient and/or family. Voiced understanding. PATRICIA ROBERTSON DO Mar 14, 2023 10:16
== END 2023-03-14 10:48 | disposition home or self-care (01) ==
LOC: EDUNIT# 10:01 → ER FS 10:03
DX: G43.109 Migraine with aura, not intractable, without status migrainosus (principal)
CPT/HCPCS: 99284

== ENCOUNTER 2023-03-31 01:32 | Emergency (ER) | payer MEDICARE ==
[~2023-03-31] VITALS: Ht 170.1 cm; Wt 73.3 kg
[2023-03-31 01:41] VITALS: BP 131/77
[2023-03-31] MEDS ORDERED: KETOROLAC INJ 60 MG/2 ML VIAL IM ONE (02:00)
[2023-03-31] MEDS ORDERED: diphenhydrAMINE INJ 50 MG/ML VIAL IM ONE (02:00)
[2023-03-31] MEDS ORDERED: PROMETHAZINE INJ 25 MG/ML VIAL IM/IV ONE (02:00)
--- NOTE | 2023-03-31 02:01 | ED Headache ---
General Chief Complaint: Head/Cervical Problems Stated Complaint: MIGRAINE Nursing Triage Note: Patient has a history of migraine headaches. Patient reports taking all of the home medications she has. She states that the migraine started yesterday after she went to the football game. Source: patient, RN notes reviewed Exam Limitations: no limitations History of Present Illness Date Seen by Provider: Mar 31, 2023 Time Seen by Provider: 01:42 Initial Comments 42-year-old female patient with history of migraine headache and frequent emergency room visits presented POV with complaining of migraine headache that started the night before yesterday as a constant right headache throbbing pain, associated with photophobia, phonophobia, nausea and 1 episode of vomiting. Patient stated she took Excedrin Migraine and recently had Botox injection by her neurologist but her pain is not getting better. Patient denies fever and chills, neck pain, focal neurodeficit, . Allergies and Home Medications Allergies Coded Allergies: Sulfa (Sulfonamide Antibiotics) (Verified Allergy, Mild, Itching, 03/14/19) cefuroxime (Verified Allergy, Unknown, 08/21/18) haloperidol (Verified Allergy, Unknown, 10/31/18) magnesium (Verified Allergy, Unknown, 08/21/18) topiramate (Verified Allergy, Unknown, 08/21/18) tramadol (Verified Allergy, Unknown, 10/31/18) Uncoded Allergies: DHE (Allergy, Unknown, 10/31/18) Patient Home Medication List Home Medication List Reviewed: Yes Bupropion HCl (Bupropion HCl Sr) 150 Mg Tablet.er, (Reported) Entered as Reported by: PARESH KNOTT on 08/22/18 1024 Butalbital/Aspirin/Caffeine (Fiorinal 50-325-40 mg Capsule) 1 Each Capsule, 1 EACH PO TID PRN for Headache Prescribed by: MELANIE CLAYTON on 09/02/19 1856 Butorphanol Tartrate (Butorphanol Tartrate) 25 Mg [place], (Reported) Entered as Reported by: PARESH KNOTT on 08/22/18 1024 Levothyroxine Sodium (Synthroid) 50 Mcg Tablet, (Reported) Entered as Reported by: PARESH KNOTT on 08/22/18 1024 Levothyroxine Sodium (Synthroid) 200 Mcg Tablet, (Reported) Entered as Reported by: PARESH KNOTT on 08/22/18 1024 Lorazepam (Lorazepam) 1 Mg Tablet, (Reported) Entered as Reported by: PARESH NKOTT on 08/22/18 1024 Promethazine HCl (Promethazine HCl) 50 Mg Supp.rect, 50 MG RC Q8H Prescribed by: TRISTEN LANDRY on 11/29/19 1555 Promethazine HCl (Promethazine Tablet) 25 Mg Tablet, 25 MG PO Q6H PRN for headache/nausea Prescribed by: LITA DE SANTIAGO on 03/18/22 1346 Propranolol HCl (Propranolol HCl) 20 Mg Tablet, (Reported) Entered as Reported by: PARESH KNOTT on 08/22/18 1024 Venlafaxine HCl (Venlafaxine HCl ER) 150 Mg Cap.er.24h, (Reported) Entered as Reported by: PARESH KNOTT on 08/22/18 1024 Zolpidem Tartrate (Zolpidem Tartrate) 5 Mg Tablet, (Reported) Entered as Reported by: PARESH KNOTT on 08/22/18 1024 Review of Systems Review of Systems Constitutional: see HPI Eyes: See HPI Ears, Nose, Mouth, Throat: no symptoms reported Respiratory: no symptoms reported Cardiovascular: no symptoms reported Gastrointestinal: see HPI Genitourinary: no symptoms reported : No Musculoskeletal: no symptoms reported Skin: no symptoms reported Psychiatric/Neurological: See HPI All Other Systems Reviewed Negative Unless Noted: Yes Past Yxolfql-Jyfhvc-Byofiy Hx Patient Social History Tobacco Use?: No Substance use?: No Alcohol Use?: No Pt feels they are or have been: No Immunizations Up To Date First/Initial COVID19 Vaccinat: up to date Second COVID19 Vaccination Francis: up to date Third COVID19 Vaccination Date: up to date Seasonal Allergies Seasonal Allergies: No Past Medical History Surgery/Hospitalization HX: Migraines Surgeries: Yes Hysterectomy Respiratory: No Cardiac: No Neurological: Yes 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 oz. 70.010358yi; 25.00 BMI Method:Stated General Appearance: mild distress HEENT: PERRL/EOMI, normal ENT inspection Neck: non-tender, full range of motion, supple Cardiovascular: regular rate, rhythm, no edema, no gallop Respiratory: chest non-tender, lungs clear, normal breath sounds, no respiratory distress Gastrointestinal: non tender, soft Back: normal inspection Extremities: normal range of motion, non-tender Psychiatric: alert, oriented x 3 Crainal Nerves: normal hearing, normal speech, PERRL Motor/Sensory: no motor deficit, no sensory deficit Skin: normal color, warm/dry Lymphatic: no adenopathy Progress/Results/Core Measures Results/Orders My Orders Orders - URBANO NICOLE MD Promethazine Injection (Promethazine I (03/31/23 02:00) Diphenhydramine Injection (Diphenhydram (03/31/23 02:00) Ketorolac Injection (Ketorolac Injection (03/31/23 02:00) Vital Signs/I&O 03/31/23 01:41 Temp 36.6 Pulse 90 Resp 16 B/P (MAP) 131/77 (95) Pulse Ox 98 O2 Delivery Room Air Blood Pressure Mean: 95 Progress Progress Note : Progress Note Differential diagnosis: Migraine headache, recurrent headache, tension headache Patient with history of migraine headache and frequent ER visit and asking for special medication of Phenergan and Toradol and Benadryl injection with unremarkable physical exam. Phenergan, Toradol and Benadryl IM was ordered and patient advised to follow-up with her neurologist regarding frequent emergency room visit and migraine headache. Patient advised to continue home medication. Departure Impression Primary Impression: Migraine Qualified Codes: G43.009 - Migraine without aura, not intractable, without status migrainosus Disposition: HOME, SELF-CARE Condition: Stable Departure-Patient Inst. Referrals: SABINA VELOZ MD (PCP/Family) Primary Care Physician Patient Instructions: Migraines (DC) URBANO NICOLE MD Mar 31, 2023 02:00
== END 2023-03-31 02:09 | disposition home or self-care (01) ==
LOC: EDUNIT# 01:32 → ER FS 01:34
DX: G43.909 Migraine, unspecified, not intractable, without status migrainosus (principal)
CPT/HCPCS: 99284

== ENCOUNTER 2023-04-07 04:41 | Emergency (ER) | payer MEDICARE ==
[~2023-04-07] VITALS: Ht 170 cm; Wt 73.3 kg
[2023-04-07 04:44] VITALS: BP 143/74
[2023-04-07] MEDS ORDERED: diphenhydrAMINE INJ 50 MG/ML VIAL IM ONE (05:00)
[2023-04-07] MEDS ORDERED: KETOROLAC INJ 60 MG/2 ML VIAL IM ONE (05:00)
[2023-04-07] MEDS ORDERED: PROMETHAZINE INJ 25 MG/ML VIAL IM/IV ONE (05:00)
--- NOTE | 2023-04-07 05:10 | ED Headache ---
General Chief Complaint: Head/Cervical Problems Stated Complaint: MIGRAINE Nursing Triage Note: Pt presents with c/o headache that started afternoon. She states she was trying to refrain from taking home medications that make her sleepy due to senior night. Source: patient Exam Limitations: no limitations History of Present Illness Date Seen by Provider: Apr 07, 2023 Time Seen by Provider: 04:48 Initial Comments 42-year-old female patient with history of migraine headache and frequent emergency room visits presented POV with complaining of migraine headache that started 2 days ago. Patient stated the pain is a constant right headache throbbing pain, associated with photophobia, phonophobia, nausea and and a started to have vomiting and decided to come to ER. Patient denies fever and chills, focal neurodeficit, head injury. Patient complaining of anxiety. Patient always asking for cocktail of Benadryl, Phenergan and Toradol. Allergies and Home Medications Allergies Coded Allergies: Sulfa (Sulfonamide Antibiotics) (Verified Allergy, Mild, Itching, 03/14/19) cefuroxime (Verified Allergy, Unknown, 08/21/18) haloperidol (Verified Allergy, Unknown, 10/31/18) magnesium (Verified Allergy, Unknown, 08/21/18) topiramate (Verified Allergy, Unknown, 08/21/18) tramadol (Verified Allergy, Unknown, 10/31/18) Uncoded Allergies: DHE (Allergy, Unknown, 10/31/18) Patient Home Medication List Home Medication List Reviewed: Yes Bupropion HCl (Bupropion HCl Sr) 150 Mg Tablet.er, (Reported) Entered as Reported by: PARESH KNOTT on 08/22/18 1024 Butalbital/Aspirin/Caffeine (Fiorinal 50-325-40 mg Capsule) 1 Each Capsule, 1 EACH PO TID PRN for Headache Prescribed by: MELANIE CLAYTON on 09/02/19 1856 Butorphanol Tartrate (Butorphanol Tartrate) 25 Mg [place], (Reported) Entered as Reported by: PARESH KNOTT on 08/22/18 1024 Levothyroxine Sodium (Synthroid) 50 Mcg Tablet, (Reported) Entered as Reported by: PARESH KNOTT on 08/22/18 1024 Levothyroxine Sodium (Synthroid) 200 Mcg Tablet, (Reported) Entered as Reported by: PARESH KNOTT on 08/22/18 1024 Lorazepam (Lorazepam) 1 Mg Tablet, (Reported) Entered as Reported by: PARESH KNOTT on 08/22/18 1024 Promethazine HCl (Promethazine HCl) 50 Mg Supp.rect, 50 MG RC Q8H Prescribed by: TRISTEN LANDRY on 11/29/19 1555 Promethazine HCl (Promethazine Tablet) 25 Mg Tablet, 25 MG PO Q6H PRN for headache/nausea Prescribed by: LITA DE SANTIAGO on 03/18/22 1346 Propranolol HCl (Propranolol HCl) 20 Mg Tablet, (Reported) Entered as Reported by: PARESH KNOTT on 08/22/18 1024 Venlafaxine HCl (Venlafaxine HCl ER) 150 Mg Cap.er.24h, (Reported) Entered as Reported by: PARESH KNOTT on 08/22/18 1024 Zolpidem Tartrate (Zolpidem Tartrate) 5 Mg Tablet, (Reported) Entered as Reported by: PARESH KNOTT on 08/22/18 1024 Review of Systems Review of Systems Constitutional: see HPI Eyes: See HPI Ears, Nose, Mouth, Throat: no symptoms reported Respiratory: no symptoms reported Cardiovascular: no symptoms reported Gastrointestinal: see HPI Genitourinary: no symptoms reported Musculoskeletal: see HPI Skin: see HPI Psychiatric/Neurological: See HPI All Other Systems Reviewed Negative Unless Noted: Yes Past Rhawehg-Snmzvo-Wuymue Hx Immunizations Up To Date First/Initial COVID19 Vaccinat: up to date Second COVID19 Vaccination Francis: up to date Third COVID19 Vaccination Date: up to date Seasonal Allergies Seasonal Allergies: No Past Medical History Surgery/Hospitalization HX: Migraines Surgeries: Yes Hysterectomy Respiratory: No Cardiac: No Neurological: Yes 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 oz. 70.970169xk; 25.00 BMI Method:Stated General Appearance: mild distress (Anxious) HEENT: PERRL/EOMI, normal ENT inspection Neck: non-tender, full range of motion, supple Cardiovascular: no edema, no gallop, tachycardia Respiratory: chest non-tender, lungs clear, normal breath sounds, no respir atory distress Gastrointestinal: non tender, soft Back: normal inspection Extremities: normal range of motion, normal inspection Psychiatric: alert, oriented x 3 Crainal Nerves: normal hearing, normal speech, PERRL Motor/Sensory: no motor deficit, no sensory deficit Skin: normal color Progress/Results/Core Measures Results/Orders My Orders Orders - URBANO NICOLE MD Promethazine Injection (Promethazine I (04/07/23 05:00) Ketorolac Injection (Ketorolac Injection (04/07/23 05:00) Diphenhydramine Injection (Diphenhydram (04/07/23 05:00) Vital Signs/I&O 04/07/23 04:44 Temp 37.0 Pulse 109 Resp 16 B/P (MAP) 143/74 (97) Blood Pressure Mean: 97 Progress Progress Note : Progress Note 42-year-old female patient with drug-seeking behavior and complaining of migraine headache that started 2 days ago and asking for cocktail of Toradol, Phenergan, Benadryl. Patient had unremarkable physical exam except for tachycardia. Patient advised to follow-up with her neurologist regarding her current and frequent episodes of migraine headache. Departure Impression Primary Impression: Migraine Qualified Codes: G43.009 - Migraine without aura, not intractable, without status migrainosus Additional Impression: Drug-seeking behavior Disposition: 01 HOME, SELF-CARE Condition: Stable Departure-Patient Inst. Decision time for Depature: 05:10 Referrals: SABINA VELOZ MD (PCP/Family) Primary Care Physician Patient Instructions: Migraines in adults Add. Discharge Instructions: Continue home medication Follow-up with your neurologist and PCP regarding frequent episodes of migraine headache and emergency room visits All discharge instructions reviewed with patient and/or family. Voiced understanding. URBANO NICOLE MD Apr 07, 2023 05:10
== END 2023-04-07 05:18 | disposition home or self-care (01) ==
LOC: EDUNIT# 04:41 → ER FS 04:42
DX: G43.909 Migraine, unspecified, not intractable, without status migrainosus (principal); Z76.5 Malingerer [conscious simulation]
CPT/HCPCS: 99284

== ENCOUNTER 2023-04-24 05:30 | Emergency (ER) | payer MEDICARE ==
[~2023-04-24] VITALS: Ht 170.2 cm; Wt 73.3 kg
[2023-04-24 05:35] VITALS: BP 126/84
[2023-04-24] MEDS ORDERED: diphenhydrAMINE INJ 50 MG/ML VIAL IM STA (05:50)
[2023-04-24] MEDS ORDERED: KETOROLAC INJ 60 MG/2 ML VIAL IM ONE (06:00)
[2023-04-24] MEDS ORDERED: PROMETHAZINE INJ 25 MG/ML VIAL IM ONE (06:00)
--- NOTE | 2023-04-24 06:01 | ED Headache ---
General Chief Complaint: Head/Cervical Problems Stated Complaint: MIGRAINE Source: patient Exam Limitations: no limitations History of Present Illness Date Seen by Provider: Apr 24, 2023 Time Seen by Provider: 05:45 Initial Comments 42-year-old female with history of chronic migraines presents for the same. She states symptoms started yesterday morning mild headache and built to a migraine throughout the day. Symptoms are consistent with her typical migraine headaches. She is on a myriad of different migraine medications and receives Botox injections for headaches every 3 months. There has been talk about an Emgality shot but she states she cannot afford it. She sees her headache specialist every 3 months and has had no recent changes to her medications. She has nausea with vomiting as a significant component of her headache at present. She denies any fevers chills or neck stiffness. All other systems reviewed and negative except documented per HPI. Voice recognition software was used to help create this chart Allergies and Home Medications Allergies Coded Allergies: Sulfa (Sulfonamide Antibiotics) (Verified Allergy, Mild, Itching, 03/14/19) cefuroxime (Verified Allergy, Unknown, 08/21/18) haloperidol (Verified Allergy, Unknown, 10/31/18) magnesium (Verified Allergy, Unknown, 08/21/18) topiramate (Verified Allergy, Unknown, 08/21/18) tramadol (Verified Allergy, Unknown, 10/31/18) Uncoded Allergies: DHE (Allergy, Unknown, 10/31/18) Patient Home Medication List Home Medication List Reviewed: Yes Bupropion HCl (Bupropion HCl Sr) 150 Mg Tablet.er, (Reported) Entered as Reported by: PARESH KNOTT on 08/22/18 1024 Butalbital/Aspirin/Caffeine (Fiorinal 50-325-40 mg Capsule) 1 Each Capsule, 1 EACH PO TID PRN for Headache Prescribed by: MELANIE CLAYTON on 09/02/19 1856 Butorphanol Tartrate (Butorphanol Tartrate) 25 Mg [place], (Reported) Entered as Reported by: PARESH KNOTT on 08/22/18 1024 Levothyroxine Sodium (Synthroid) 50 Mcg Tablet, (Reported) Entered as Reported by: PARESH KNOTT on 08/22/18 1024 Levothyroxine Sodium (Synthroid) 200 Mcg Tablet, (Reported) Entered as Reported by: PARESH KNOTT on 08/22/18 1024 Lorazepam (Lorazepam) 1 Mg Tablet, (Reported) Entered as Reported by: PARESH KNOTT on 08/22/18 1024 Promethazine HCl (Promethazine HCl) 50 Mg Supp.rect, 50 MG RC Q8H Prescribed by: TRISTEN LANDRY on 11/29/19 1555 Promethazine HCl (Promethazine Tablet) 25 Mg Tablet, 25 MG PO Q6H PRN for headache/nausea Prescribed by: LITA DE SANTIAGO on 03/18/22 1346 Propranolol HCl (Propranolol HCl) 20 Mg Tablet, (Reported) Entered as Reported by: PARESH KNOTT on 08/22/18 1024 Venlafaxine HCl (Venlafaxine HCl ER) 150 Mg Cap.er.24h, (Reported) Entered as Reported by: PARESH KNOTT on 08/22/18 1024 Zolpidem Tartrate (Zolpidem Tartrate) 5 Mg Tablet, (Reported) Entered as Reported by: PARESH KNOTT on 08/22/18 1024 Review of Systems Review of Systems Constitutional: see HPI Past Qzoysjw-Vvoglp-Frbljb Hx Patient Social History Tobacco Use?: No Use of E-Cig and/or Vaping dev: No Substance use?: No Alcohol Use?: No Immunizations Up To Date First/Initial COVID19 Vaccinat: up to date Second COVID19 Vaccination Francis: up to date Third COVID19 Vaccination Date: up to date Seasonal Allergies Seasonal Allergies: No Past Medical History Surgery/Hospitalization HX: Migraines Surgeries: Yes Hysterectomy Respiratory: No Cardiac: No Neurological: Yes 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 oz. 70.348419ss; 25.00 BMI Method:Stated General Appearance: WD/WN, no apparent distress HEENT: PERRL/EOMI, normal ENT inspection, pharynx normal Neck: supple, normal inspection Cardiovascular: regular rate, rhythm, no murmur Respiratory: chest non-tender, lungs clear, normal breath sounds, no respiratory distress, no accessory muscle use Gastrointestinal: normal bowel sounds, non tender, soft Extremities: normal range of motion, non-tender, normal inspection Psychiatric: alert, oriented x 3 Coordination/Gait: normal finger to nose, normal gait Skin: normal color, warm/dry Progress/Results/Core Measures Results/Orders My Orders Orders - PATRICIA ROBERTSON DO Promethazine Injection (Promethazine I (04/24/23 06:00) Diphenhydramine Injection (Diphenhydram (04/24/23 05:50) Ketorolac Injection (Ketorolac Injection (04/24/23 06:00) Departure Communication (Admissions) Patient has chronic migraine headaches and presents for the same. She has no atypical features that are concerning to her. She does have prominent nausea with this episode. She sees neurology and is actually been here 19 times this year, mostly for migraine headaches. She is afebrile, nontoxic no evidence for meningitis or other emergent cause of headaches. She is given IM Phenergan Benadryl and Toradol and discharged in stable condition. Impression Primary Impression: Migraine with aura Qualified Codes: G43.109 - Migraine with aura, not intractable, without status migrainosus Disposition: HOME, SELF-CARE Condition: Stable Departure-Patient Inst. Referrals: SABINA VELOZ MD (PCP/Family) Primary Care Physician Patient Instructions: Migraines (DC) Add. Discharge Instructions: You were seen in the emergency department today for migraine headache. Continue to follow with your headache specialist, primary doctor for further treatment recommendations. Return to the emergency department for any severe concerns. All discharge instructions reviewed with patient and/or family. Voiced understanding. PATRICIA ROBERTSON DO Apr 24, 2023 06:01
== END 2023-04-24 06:09 | disposition home or self-care (01) ==
LOC: EDUNIT# 05:30 → ER FS 05:31
DX: G43.109 Migraine with aura, not intractable, without status migrainosus (principal)
CPT/HCPCS: 96372; 99284

== ENCOUNTER 2023-04-29 23:41 | Emergency (ER) | payer MEDICARE ==
[2023-04-29] MEDS ORDERED: KETOROLAC INJ 60 MG/2 ML VIAL IM STA (23:45)
[2023-04-29] MEDS ORDERED: PROMETHAZINE INJ 25 MG/ML VIAL IM STA (23:45)
[2023-04-29] MEDS ORDERED: diphenhydrAMINE INJ 50 MG/ML VIAL IM STA (23:45)
--- NOTE | 2023-04-29 23:47 | ED Headache ---
General Chief Complaint: Head/Cervical Problems Stated Complaint: MIGRAINE Source: patient History of Present Illness Date Seen by Provider: Apr 29, 2023 Time Seen by Provider: 23:45 Initial Comments 42-year-old female presenting with complaints of migraine headache. She states that this feels similar to her recurrent migraines. She had it started on ay and it continued through the weekend. She has tried taking Excedrin Migraine and nasal spray for her migraines as well as other prescription medicine she has at home to help treat migraines. She has been able to eat a little bit but was having a lot of nausea. She did have some vomiting before she ate tonight. She has been under some extra stress with worry and concern about her son having a college visit on Sunday. She denies having fever or chills. She has had some mild congestion but felt that it was related to allergies. No other new or worrisome symptoms or signs. Severity/Quality: constant Location: occipital Prior Headaches/Recent Trauma: frequent headaches, chronic headaches Modifying Factors: worse with exposure to light Associated Symptoms: No confusion; fatigue; No facial pain, No fever/chills, No flushing, No loss of consciousness; nausea/vomiting, nasal congestion; No nasal drainage, No numbness in legs/feet, No rash, No seizures, No sinus infection, No stiff neck, No vision changes, No weakness Allergies and Home Medications Allergies Coded Allergies: Sulfa (Sulfonamide Antibiotics) (Verified Allergy, Mild, Itching, 03/14/19) cefuroxime (Verified Allergy, Unknown, 08/21/18) haloperidol (Verified Allergy, Unknown, 10/31/18) magnesium (Verified Allergy, Unknown, 08/21/18) topiramate (Verified Allergy, Unknown, 08/21/18) tramadol (Verified Allergy, Unknown, 10/31/18) Uncoded Allergies: DHE (Allergy, Unknown, 10/31/18) Patient Home Medication List Home Medication List Reviewed: Yes Bupropion HCl (Bupropion HCl Sr) 150 Mg Tablet.er, (Reported) Entered as Reported by: PARESH KNOTT on 08/22/18 1024 Butalbital/Aspirin/Caffeine (Fiorinal 50-325-40 mg Capsule) 1 Each Capsule, 1 EACH PO TID PRN for Headache Prescribed by: MELANIE CLAYTON on 09/02/19 1856 Butorphanol Tartrate (Butorphanol Tartrate) 25 Mg [place], (Reported) Entered as Reported by: PARESH KNOTT on 08/22/18 1024 Levothyroxine Sodium (Synthroid) 50 Mcg Tablet, (Reported) Entered as Reported by: PARESH KNOTT on 08/22/18 1024 Levothyroxine Sodium (Synthroid) 200 Mcg Tablet, (Reported) Entered as Reported by: PARESH KNOTT on 08/22/18 1024 Lorazepam (Lorazepam) 1 Mg Tablet, (Reported) Entered as Reported by: PARESH KNOTT on 08/22/18 1024 Promethazine HCl (Promethazine HCl) 50 Mg Supp.rect, 50 MG RC Q8H Prescribed by: TRISTEN LANDRY on 11/29/19 1555 Promethazine HCl (Promethazine Tablet) 25 Mg Tablet, 25 MG PO Q6H PRN for headache/nausea Prescribed by: ILTA DE SANTIAGO on 03/18/22 1346 Propranolol HCl (Propranolol HCl) 20 Mg Tablet, (Reported) Entered as Reported by: PRAESH KNOTT on 08/22/18 1024 Venlafaxine HCl (Venlafaxine HCl ER) 150 Mg Cap.er.24h, (Reported) Entered as Reported by: PARESH KNOTT on 08/22/18 1024 Zolpidem Tartrate (Zolpidem Tartrate) 5 Mg Tablet, (Reported) Entered as Reported by: PARESH KNOTT on 08/22/18 1024 Review of Systems Review of Systems Constitutional: No chills, No fever Eyes: Photophobia; Denies Vision Changes Ears, Nose, Mouth, Throat: see HPI Respiratory: no symptoms reported Cardiovascular: no symptoms reported Gastrointestinal: see HPI Genitourinary: no symptoms reported Musculoskeletal: no symptoms reported Skin: no symptoms reported Psychiatric/Neurological: See HPI, Anxiety, Headache Past Jcytgmn-Aeohtg-Tffncd Hx Immunizations Up To Date First/Initial COVID19 Vaccinat: up to date Second COVID19 Vaccination Francis: up to date Third COVID19 Vaccination Date: up to date Seasonal Allergies Seasonal Allergies: No Past Medical History Surgery/Hospitalization HX: Migraines Surgeries: Yes Hysterectomy Respiratory: No Cardiac: No 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 oz. 70.308510ms; 25.00 BMI Method:Stated General Appearance: WD/WN, other (Appears anxious. Wearing dark sunglasses) HEENT: PERRL/EOMI, pharynx normal Neck: non-tender, full range of motion, supple, normal inspection Cardiovascular: normal peripheral pulses, regular rate, rhythm Respiratory: chest non-tender, lungs clear, normal breath sounds Extremities: normal range of motion, non-tender, normal capillary refill Psychiatric: alert, oriented x 3 Crainal Nerves: PERRL Coordination/Gait: normal gait Motor/Sensory: no motor deficit, no sensory deficit Skin: normal color, warm/dry Progress/Results/Core Measures Results/Orders My Orders Orders - SUSANA LOPEZ MD Ketorolac Injection (Ketorolac Injection (04/29/23 23:45) Promethazine Injection (Promethazine I (04/29/23 23:45) Diphenhydramine Injection (Diphenhydram (04/29/23 23:45) Progress Progress Note : Progress Note With patient having complaints of recurrent migraine headache and new or worrisome additional symptoms will order Toradol 60 mg IM along with Benadryl 25 mg IM with Phenergan 25 mg IM. Encourage patient to rest in a cool dark room and try to get some sleep to help break the cycle of her migraine headache. Continue with home medications. Follow-up with neurology and PCP for continued concerns Departure Impression Primary Impression: Migraine headache without aura Qualified Codes: G43.019 - Migraine without aura, intractable, without status migrainosus Disposition: HOME, SELF-CARE Condition: Stable Departure-Patient Inst. Decision time for Depature: 23:47 Referrals: SABINA VELOZ MD (PCP/Family) Primary Care Physician Patient Instructions: Migraines in adults Add. Discharge Instructions: Continue your home medications. Follow-up with neurology and primary care for continued migraine headaches All discharge instructions reviewed with patient and/or family. Voiced understanding. SUSANA LOPEZ MD Apr 29, 2023 23:47
[2023-04-30 00:10] VITALS: BP 145/78
== END 2023-04-30 00:10 | disposition home or self-care (01) ==
LOC: EDUNIT# 23:41 → ER FS 23:42
DX: G43.009 Migraine without aura, not intractable, without status migrainosus (principal)
CPT/HCPCS: 96372; 99284

== ENCOUNTER 2023-05-06 05:41 | Emergency (ER) | payer MEDICARE ==
--- NOTE | 2023-05-06 05:56 | ED Headache ---
General Chief Complaint: Head/Cervical Problems Stated Complaint: MIGRAINE History of Present Illness Date Seen by Provider: May 06, 2023 Time Seen by Provider: 05:49 Initial Comments 42-year-old female with PMH of hypothyroidism/migraine/heart disease, is here with complaints of a migraine headache which has been going on for the past 2 days. Is associated with photophobia, nausea and vomiting. Patient has tried different migraine headaches but it has not been helping. Patient took Excedrin and Benadryl today morning and did not help. Denies photophobia, dizziness, chest pain, shortness of breath, fever and chills, neck pain or neck stiffness. Allergies and Home Medications Allergies Coded Allergies: Sulfa (Sulfonamide Antibiotics) (Verified Allergy, Mild, Itching, 03/14/19) cefuroxime (Verified Allergy, Unknown, 08/21/18) haloperidol (Verified Allergy, Unknown, 10/31/18) magnesium (Verified Allergy, Unknown, 08/21/18) topiramate (Verified Allergy, Unknown, 08/21/18) tramadol (Verified Allergy, Unknown, 10/31/18) Uncoded Allergies: DHE (Allergy, Unknown, 10/31/18) Patient Home Medication List Home Medication List Reviewed: Yes Bupropion HCl (Bupropion HCl Sr) 150 Mg Tablet.er, (Reported) Entered as Reported by: PARESH KNOTT on 08/22/18 1024 Butalbital/Aspirin/Caffeine (Fiorinal 50-325-40 mg Capsule) 1 Each Capsule, 1 EACH PO TID PRN for Headache Prescribed by: MELANIE CLAYTON on 09/02/19 185 Butorphanol Tartrate (Butorphanol Tartrate) 25 Mg [place], (Reported) Entered as Reported by: PARESH KNOTT on 08/22/18 1024 Levothyroxine Sodium (Synthroid) 50 Mcg Tablet, (Reported) Entered as Reported by: PARESH KNOTT on 08/22/18 1024 Levothyroxine Sodium (Synthroid) 200 Mcg Tablet, (Reported) Entered as Reported by: PARESH KNOTT on 08/22/18 1024 Lorazepam (Lorazepam) 1 Mg Tablet, (Reported) Entered as Reported by: PARESH KNOTT on 08/22/18 1024 Promethazine HCl (Promethazine HCl) 50 Mg Supp.rect, 50 MG RC Q8H Prescribed by: TRISTEN LANDRY on 11/29/19 1555 Promethazine HCl (Promethazine Tablet) 25 Mg Tablet, 25 MG PO Q6H PRN for headache/nausea Prescribed by: LITA DE SANTIAGO on 03/18/22 1346 Propranolol HCl (Propranolol HCl) 20 Mg Tablet, (Reported) Entered as Reported by: PARESH KNOTT on 08/22/18 1024 Venlafaxine HCl (Venlafaxine HCl ER) 150 Mg Cap.er.24h, (Reported) Entered as Reported by: PARESH KNOTT on 08/22/18 1024 Zolpidem Tartrate (Zolpidem Tartrate) 5 Mg Tablet, (Reported) Entered as Reported by: PARESH KNOTT on 08/22/18 1024 Review of Systems Review of Systems Constitutional: no symptoms reported Eyes: No Symptoms Reported Psychiatric/Neurological: Headache Past Ywlwuys-Bjrtsb-Kdhgnk Hx Patient Social History Tobacco Use?: No Substance use?: No Alcohol Use?: No Immunizations Up To Date First/Initial COVID19 Vaccinat: up to date Second COVID19 Vaccination Francis: up to date Third COVID19 Vaccination Date: up to date Seasonal Allergies Seasonal Allergies: No Past Medical History Surgery/Hospitalization HX: Migraines Surgeries: Yes Hysterectomy Respiratory: No Cardiac: No Neurological: Yes 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 oz. 70.113971et; 25.00 BMI Method:Stated General Appearance: WD/WN, mild distress HEENT: PERRL/EOMI Neck: non-tender, full range of motion, supple, normal inspection Cardiovascular: regular rate, rhythm Respiratory: lungs clear Psychiatric: alert, oriented x 3 Crainal Nerves: normal hearing, normal speech, PERRL Coordination/Gait: normal gait Motor/Sensory: no motor deficit, no sensory deficit Skin: normal color Progress/Results/Core Measures Results/Orders My Orders Orders - ESTEFANY HOROWITZ MD Ketorolac Injection (Ketorolac Injection (05/06/23 06:00) Promethazine Injection (Promethazine I (05/06/23 06:00) Diphenhydramine Injection (Diphenhydram (05/06/23 06:00) Vital Signs/I&O 05/06/23 05:45 Temp 36.5 Pulse 100 Resp 16 B/P (MAP) 125/74 (91) Pulse Ox 100 O2 Delivery Room Air Progress Progress Note : Progress Note 1. MIGRAINE: - Toradol im/Phenergan im/ Benadryl 25mg im, given in ER - Advised adequate hydration, good sleep habits, stress relief - Follow up with PCP and neurologist within 7 to 10 days. -The patient was seen in the ED, and treated appropriately to presentation at a specific point in time. Patient is informed that there is a possibility that disease and illness can evolve and change in acuity rapidly or slowly after patient is discharged from the ER. Precautionary advice given to the patient for immediate return to ER if symptoms worsen or do not resolve, and to seek emergency care sooner rather than later. Pt also advised on the importance of PCP follow up and compliance with management and follow up plan with PCP and/or specialist, as this is part of the management plan. Pt verbally expressed understanding. Departure Impression Primary Impression: Migraine Qualified Codes: G43.919 - Migraine, unspecified, intractable, without status migrainosus Disposition: 01 HOME, SELF-CARE Condition: Improved Departure-Patient Inst. Referrals: SABINA VELOZ MD (PCP/Family) Primary Care Physician Patient Instructions: Migraines in adults, Migraines (DC) Add. Discharge Instructions: - Advised adequate hydration, good sleep habits, stress relief - Follow up with PCP and neurologist within 7 to 10 days. All discharge instructions reviewed with patient and/or family. Voiced understanding. ESTEFANY HOROWITZ MD May 06, 2023 05:56
[2023-05-06] MEDS ORDERED: KETOROLAC INJ 30 MG/ML VIAL IM ONE (06:00)
[2023-05-06] MEDS ORDERED: diphenhydrAMINE INJ 50 MG/ML VIAL IM ONE (06:00)
[2023-05-06] MEDS ORDERED: PROMETHAZINE INJ 25 MG/ML VIAL IM ONE (06:00)
[2023-05-06 06:16] VITALS: BP 125/74
== END 2023-05-06 06:16 | disposition home or self-care (01) ==
LOC: EDUNIT# 05:41 → ER FS 05:42
DX: G43.909 Migraine, unspecified, not intractable, without status migrainosus (principal)
CPT/HCPCS: 96372; 99284

== ENCOUNTER 2023-05-26 20:32 | Emergency (ER) | payer MEDICARE ==
[2023-05-26] MEDS ORDERED: KETOROLAC INJ 60 MG/2 ML VIAL IM ONE (21:00)
[2023-05-26] MEDS ORDERED: diphenhydrAMINE INJ 50 MG/ML VIAL IM ONE (21:00)
[2023-05-26] MEDS ORDERED: PROMETHAZINE INJ 25 MG/ML VIAL IM ONE (21:00)
--- NOTE | 2023-05-26 21:22 | ED Headache ---
General Chief Complaint: Head/Cervical Problems Stated Complaint: MIGRAINE Nursing Triage Note: Pt presents to ED per POV accompanied by spouse carrying her piggyback into ED. Pt reports migraine with photophobia. Migraine started Sunday night. Has tried Excedrin Migraine and Benadryl that has not worked. Pt also reports vomiting Zofran. Source: patient History of Present Illness Date Seen by Provider: May 26, 2023 Time Seen by Provider: 20:46 Initial Comments 42-year-old female patient with history of migraine headache and frequent ER visit presented POV with her with complaining of migraine headache since last night as a throbbing pain in right side of her head and associated with photophobia, nausea and 2 or 3 of episodes of vomiting. Patient denies fever and chills, focal neurodeficit, head injury. Patient stated the pain is like her usual migraine headache but did not get better with taking Excedrin Migraine and Benadryl and Zofran last night. Patient states that she has appointment with her neurologist on June 04. Timing/Duration: 24 hours Allergies and Home Medications Allergies Coded Allergies: Sulfa (Sulfonamide Antibiotics) (Verified Allergy, Mild, Itching, 03/14/19) cefuroxime (Verified Allergy, Unknown, 08/21/18) haloperidol (Verified Allergy, Unknown, 10/31/18) magnesium (Verified Allergy, Unknown, 08/21/18) topiramate (Verified Allergy, Unknown, 08/21/18) tramadol (Verified Allergy, Unknown, 10/31/18) Uncoded Allergies: DHE (Allergy, Unknown, 10/31/18) Patient Home Medication List Home Medication List Reviewed: Yes Bupropion HCl (Bupropion HCl Sr) 150 Mg Tablet.er, (Reported) Entered as Reported by: PARESH KNOTT on 08/22/18 1024 Butalbital/Aspirin/Caffeine (Fiorinal 50-325-40 mg Capsule) 1 Each Capsule, 1 EACH PO TID PRN for Headache Prescribed by: MELANIE CLAYTON on 09/02/19 1856 Butorphanol Tartrate (Butorphanol Tartrate) 25 Mg [place], (Reported) Entered as Reported by: PARESH KNOTT on 08/22/18 1024 Levothyroxine Sodium (Synthroid) 50 Mcg Tablet, (Reported) Entered as Reported by: PARESH KNOTT on 08/22/18 1024 Levothyroxine Sodium (Synthroid) 200 Mcg Tablet, (Reported) Entered as Reported by: PARESH KNOTT on 08/22/18 1024 Lorazepam (Lorazepam) 1 Mg Tablet, (Reported) Entered as Reported by: PARESH KNOTT on 08/22/18 1024 Propranolol HCl (Propranolol HCl) 20 Mg Tablet, (Reported) Entered as Reported by: PARESH KNOTT on 08/22/18 1024 Venlafaxine HCl (Venlafaxine HCl ER) 150 Mg Cap.er.24h, (Reported) Entered as Reported by: PARESH KNOTT on 08/22/18 1024 Zolpidem Tartrate (Zolpidem Tartrate) 5 Mg Tablet, (Reported) Entered as Reported by: PARESH KNOTT on 08/22/18 1024 Discontinued Medications Promethazine HCl (Promethazine HCl) 50 Mg Supp.rect, 50 MG RC Q8H Discontinued Reason: Referral/FU Appt-Addtl Prescribed by: TRISTEN LANDRY on 11/29/19 1555 Last Action: Discontinued Promethazine HCl (Promethazine Tablet) 25 Mg Tablet, 25 MG PO Q6H PRN for headache/nausea Discontinued Reason: Referral/FU Appt-Addtl Prescribed by: LITA DE SANTIAGO on 03/18/22 1346 Last Action: Discontinued Review of Systems Review of Systems Constitutional: no symptoms reported Eyes: See HPI Ears, Nose, Mouth, Throat: no symptoms reported Respiratory: no symptoms reported Cardiovascular: no symptoms reported Gastrointestinal: see HPI Genitourinary: no symptoms reported : No Musculoskeletal: no symptoms reported Skin: no symptoms reported Psychiatric/Neurological: See HPI All Other Systems Reviewed Negative Unless Noted: Yes Past Pxbsjsj-Hpyiot-Qnsjoh Hx Patient Social History Tobacco Use?: No Use of E-Cig and/or Vaping dev: No Substance use?: No Alcohol Use?: No Immunizations Up To Date First/Initial COVID19 Vaccinat: up to date Second COVID19 Vaccination Francis: up to date Third COVID19 Vaccination Date: up to date Seasonal Allergies Seasonal Allergies: No Past Medical History Surgery/Hospitalization HX: Migraines Surgeries: Yes Hysterectomy Respiratory: No Cardiac: No Neurological: Yes Headaches /Migraines [employer] History: Hysterectomy Genitourinary: No Gastrointestinal: No Musculoskeletal: No Endocrine: Yes (Vitamin D deficiency) Hypothyroidsim HEENT: No Cancer: No Psychosocial: Yes Anxiety, Depression Integumentary: No Blood Disorders: No Adverse Reaction/Blood Tranf: No Physical Exam Vital Signs Vital Signs - First Documented 05/26/23 20:35 Temp 36.8 Pulse 114 Resp 18 B/P (MAP) 121/80 (94) Pulse Ox 100 O2 Delivery Room Air Capillary Refill : Less Than 3 Seconds Height, Weight, BMI Height: 5'7.00" Weight: 155lbs. oz. [id number]; 25.00 BMI Method:Stated General Appearance: mild distress HEENT: PERRL/EOMI, normal ENT inspection Neck: non-tender, full range of motion, supple, normal inspection Cardiovascular: regular rate, rhythm, no edema, no murmur Respiratory: chest non-tender, lungs clear, normal breath sounds, no respiratory distress, no accessory muscle use Gastrointestinal: non tender, soft Back: normal inspection Extremities: normal range of motion, non-tender, normal inspection, no pedal edema Psychiatric: alert, oriented x 3 Crainal Nerves: normal hearing, normal speech, PERRL Progress/Results/Core Measures Results/Orders My Orders Orders - URBANO NICOLE MD Diphenhydramine Injection (Diphenhydram (05/26/23 21:00) Ketorolac Injection (Ketorolac Injection (05/26/23 21:00) Promethazine Injection (Promethazine I (05/26/23 21:00) Medications Given in ED Current Medications Medications Dose Ordered Sig/Shell Route Start Time Stop Time Status Last Admin Dose Admin Diphenhydramine HCl 25 mg ONCE ONCE IM 05/26/23 21:00 05/26/23 21:01 DC 05/26/23 21:05 25 MG Ketorolac Tromethamine 30 mg ONCE ONCE IM 05/26/23 21:00 05/26/23 21:01 DC 05/26/23 21:05 30 MG Promethazine HCl 25 mg ONCE ONCE IM 05/26/23 21:00 05/26/23 21:01 DC 05/26/23 21:05 25 MG Vital Signs/I&O 05/26/23 05/26/23 20:35 21:05 Temp 36.8 36.8 Pulse 114 Resp 18 B/P (MAP) 121/80 (94) Pulse Ox 100 O2 Delivery Room Air Blood Pressure Mean: 94 Progress Progress Note : Progress Note Patient with frequent ER visit with history of migraine headache and asking for Toradol and Benadryl and Phenergan like her usual migraine headache treatment. Patient requested to get discharged as soon as she had the injection and stated she feels better to rest at her bed. Patient advised to follow-up with her neurology appointment and continue home medication. Departure Impression Primary Impression: Migraine Qualified Codes: G43.909 - Migraine, unspecified, not intractable, without status migrainosus Disposition: HOME, SELF-CARE Condition: Improved Departure-Patient Inst. Decision time for Depature: 21:22 Referrals: SABINA VELOZ MD (PCP/Family) Primary Care Physician Patient Instructions: Home Headache Remedies, Migraines in adults Add. Discharge Instructions: Continue home medication Follow-up with your neurologist appointment on June 04 Follow-up with your primary care physician as needed Return to ER as needed All discharge instructions reviewed with patient and/or family. Voiced understanding. URBANO NICOLE MD May 26, 2023 21:22
[2023-05-26 21:45] VITALS: BP 118/76
== END 2023-05-26 21:24 | disposition home or self-care (01) ==
LOC: EDUNIT# 20:32 → ER FS 20:33
DX: G43.909 Migraine, unspecified, not intractable, without status migrainosus (principal); Z88.6 Allergy status to analgesic agent
CPT/HCPCS: 99284